=== PATIENT | male | born 1990 | race Caucasian/White ===

== ENCOUNTER 2021-12-26 22:39 | Emergency (ER) | payer BC, SELFPAY ==
[2021-12-26 22:55] VITALS: BP 136/91; PULSE 92; RESP 18; TEMP 36.6; O2SAT 98; BMI 25.8
[2021-12-27] MEDS: LIDOCAINE 1% 20 ML VIAL INJECTION (00:28)
[2021-12-27] MEDS: AZITHROMYCIN 250 MG TABLET 1000 MG PO (00:29)
[2021-12-27] MEDS: cefTRIAXone 500 MG VIAL IM (00:29)
[2021-12-27 01:39] LABS: Chlamydia DNA Amplified* Not Detected (No Detected); GC DNA Amplified* Not Detected (No Detected)
--- NOTE | 2022-01-01 05:40 | ED.GENADULT ---
HPI - General Adult General Chief complaint: Unspecified Complaint, Adult Stated complaint: STD check and medication error Time Seen by Provider: 12/26/21 22:51 History of Present Illness HPI narrative: Patient is a 31-year-old male with long history of benzodiazepine abuse who comes in requesting a rapid taper of lorazepam. He apparently finished a course of treatment at [facility] recently but rapidly relapsed when his mother and he found some lorazepam that had been prescribed to her. He has been abusing that for the past several weeks. He lied to his PCP in the clinic two weeks ago and told him that he had remained clean and sober. Tonight he tells me that he has been using 1.5 mg daily and is worried about withdrawal. He would also like to be screened for gonorrhea and chlamydia is he had unprotected intercourse couple of weeks ago. He has no dysuria, urgency, frequency, fever, penile discharge. He has a history of gonorrhea. In the course of my interview did ask him if he has had any prescriptions written for lorazepam since he got out of treatment any told me know. 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 I then very clearly told him that I would not be providing him with any benzodiazepines tonight and he did not put up much of a fight. Related Data Previous Rx's Medication Instructions Recorded diltiazem HCl 120 mg 120 mg PO BID #180 cap 12/07/21 capsule,extended release 12 hr gabapentin 300 mg capsule 300 - 900 mg PO BID #180 cap 12/07/21 sertraline 100 mg tablet 100 mg PO DAILY #90 tab 12/07/21 gabapentin 300 mg capsule 300 mg PO BID #60 cap 12/22/21 gabapentin 600 mg tablet 600 mg PO BID #60 tab 12/22/21 Allergies Allergy/AdvReac Type Severity Reaction Status Date / Time rosalva Allergy Severe Throat Verified 12/26/21 23:01 closes up pineapple Allergy Intermediate lips swell Verified 12/26/21 23:01 ascorbic acid Allergy Mild cold sores Verified 12/26/21 23:01 inositol Allergy Mild Cold sores Verified 12/26/21 23:01 lemon oil Allergy Mild Cold sores Verified 12/26/21 23:01 niacinamide Allergy Mild Cold sores Verified 12/26/21 23:01 pantothenic acid Allergy Mild Cold sores Verified 12/26/21 23:01 pyridoxine Allergy Mild Cold sores Verified 12/26/21 23:01 riboflavin (vitamin B2) Allergy Mild Cold sores Verified 12/26/21 23:01 thiamine (vitamin B1) Allergy Mild Cold sores Verified 12/26/21 23:01 cephalexin Allergy Unknown Nausea and Verified 12/26/21 23:01 vomiting Bioflavonoids / grape seed Allergy Mild Cold sores Uncoded 12/26/21 23:01 extract Choline Allergy Mild cold sores Uncoded 12/26/21 23:01 Lemon Flavor Allergy Mild Cold sores Uncoded 12/26/21 23:01 Vitamin B12 Allergy Mild Cold sores Uncoded 12/26/21 23:01 PFSH PFS Medical History Anxiety disorder (07/23/12) Attention deficit disorder (07/23/12) Benzodiazepine abuse Depression (07/23/12) Gastroesophageal reflux disease History of bipolar disorder (09/08/12) History of suicidal ideation (09/08/12) Insomnia Palpitations Supraventricular tachycardia Tobacco use (07/23/12) Surgical History (Updated 01/01/22 @ 05:41 by Armando Crisostomo MD) History of radiofrequency ablation (RFA) procedure for cardiac arrhythmia (05/26/19) Family History (Updated 12/04/21 @ 13:23 by Chandu Fallon) Mother Bqjlb-Ltacwcehb-Wfnto (WPW) syndrome Social History Smoking Status: Current every day smoker Exam Narrative: Exam Narrative: Vitals noted. HEENT: Conjunctiva clear. Tympanic membranes are pearly white bilaterally. Posterior pharynx is clear without erythema or exudate. Neck is supple without adenopathy, thyromegaly, carotid bruit. Lungs: Clear to auscultation in all painting. No wheezes, rales, rhonchi. Heart: Regular rate and rhythm without murmur. Abdomen: Soft and nontender. No guarding, rigidity, rebound. Bowel sounds are normal. No palpable masses. Extremities: No cyanosis or edema. Good distal pulses. Skin: No abnormalities noted of the exposed skin. Neurologic: Awake, alert, fully oriented. Neurologic exam is nonfocal. Course Course Hospital Course: Patient is seen and examined. The TEXT[employer] SALES REPRESENTATIVE system is reviewed. I confronted him regarding his drug-seeking behavior and his son steady. He did leave us a urine for gonorrhea and chlamydia testing both of which have returned negative. Vital Signs Vital signs: Initial Vital Signs Temperature 97.8 F 12/26/21 22:55 Temperature Source Temporal Artery Scan 12/26/21 22:55 Pulse Rate 92 12/26/21 22:55 Respiratory Rate 18 12/26/21 22:55 Blood Pressure 136/91 H 12/26/21 22:55 Blood Pressure Mean 106 12/26/21 22:55 Blood Pressure Position Sitting 12/26/21 22:55 Pulse Oximetry 98 12/26/21 22:55 Oxygen Delivery Method 12/26/21 22:55 Vital Signs Temperature 97.8 F 12/26/21 22:55 Pulse Rate 92 12/26/21 22:55 Respiratory Rate 18 12/26/21 22:55 Blood Pressure 136/91 H 12/26/21 22:55 Pulse Oximetry 98 12/26/21 22:55 Temperature 97.8 F 12/26/21 22:55 Pulse Rate 92 12/26/21 22:55 Respiratory Rate 18 12/26/21 22:55 Blood Pressure 136/91 H 12/26/21 22:55 Pulse Oximetry 98 12/26/21 22:55 Medical Decision Making Lab Data Labs: Lab Results 12/27/21 Range/Units 00:00 C.trachomatis Ampl DNA Not Detected (No Detected) N.gonorrhoeae Ampl DNA Not Detected (No Detected) Discharge Plan Discharge Clinical Impression: Benzodiazepine abuse, STD exposure Patient Disposition: Home, Self-Care Condition: Improved Additional Instructions: Continue gabapentin to help with addiction. Follow-up with your PCP within the next 3-5 days to discuss a plan. You have been treated for both gonorrhea and chlamydia in those test results will be available couple of days. Be honest with your doctor. He will be better able to help you if you are. Prescriptions: No Action diltiazem HCl 120 mg capsule,extended release 12 hr 120 mg PO BID Qty: 180 1RF gabapentin 300 mg capsule 300 - 900 mg PO BID Qty: 180 1RF sertraline 100 mg tablet 100 mg PO DAILY Qty: 90 1RF gabapentin 300 mg capsule 300 mg PO BID Qty: 60 0RF gabapentin 600 mg tablet 600 mg PO BID Qty: 60 0RF Follow Up/Referrals: Tomi Crystal MD [Primary Care Provider] - Stand Alone Forms: MyHealth Info Instructions
--- OUTSIDE RECORDS SUMMARY | 2022-01-16 18:19 | XMS_ITS | Encounter Summary ---
:1990 Author Organization [facility] Address [address] [place] [address]. [place] [address] Care Team Providers Name Role Phone Unavailable Primary Care Provider Unavailable Reason for Visit Reason Onset Date Comments Medication Question 12/18/2020 Encounter Details Date Type Department Care Team Description 12/18/2020 Telephone [facility] Nurse Gerry Winchester, cook chill technician [facility] [address] [place] [phone] Social History Tobacco Use Types Packs/Day Years Used Date Never Assessed Sex Assigned at Date Recorded Not on file COVID-19 Exposure Response Date Recorded In the last month, have you been in contact with No / Unsure 12/18/2020 7:49 PM CDT someone who was confirmed or suspected to have Coronavirus / COVID-19? documented as of this encounter Miscellaneous Notes Telephone Encounter - Gerry Winchester RN - 12/18/2020 7:49 PM CDT Data: Pt called to report they see a pelt grader at [facility] Dr. Palacio who put the pt on a new heart medication called Corlanor which can lower heart rate. Pt also takes propanolol and is planning to take their dose tonight but is not sure if they can take this together with the new medication. Pt's current heart rate is 117 BPM due pt being anxious. Action: Cad Developer unsure if pt is able to take these two medications together. Advised pt should reach out to their cardiologists to discuss this with them. Also advised pt could contact the pharmacy to see if these two medication could be taken together. Pt does not have a PCP within system so unable to abhishek [facility]. Response: Pt verbalizes understanding and agrees with plan of care. Gerry Winchester RN 12/18/2020 8:00 PM [facility] Nurse Advisor COVID 19 Nurse Triage Plan/Patient Instructions Please be aware that novel coronavirus (COVID-19) may be circulating in the community. If you develop symptoms such as fever, cough, or SOB or if you have concerns about the presence of another infection including coronavirus (COVID- 19), please contact your health care provider or visit [email or web address]. Disposition/Instructions Additional COVID19 information to add for patients. How can I protect others? If you have symptoms (fever, cough, body aches or trouble breathing): Stay home and away from others(self-isolate) until: ??? At least 10 days have passed since your symptoms started, And? You???ve had no fever--and no medicine that reduces fever--for 1 full day (24 hours), And? Your other symptoms have resolved (gotten better). If you don???t have symptoms, but a test showed that you have COVID-19 (you tested positive): ?? Stay home and away from others (self-isolate). Follow the tips under How do I self-isolate? below for 10 days (20 days if you have a weak immune system). ?? You don't need to be retested for COVID-19 before going back to school or work. As long as you'refever-free and feeling better, you can go back to school, work and other activities after waiting the 10 or 20 days. How do I self-isolate? Stay in your own room, even for meals. Use your own bathroom if you can. ??? Stay away from others in your home. No hugging, kissing or shaking hands. No visitors. ??? Don???t go to work, school or anywhere else. ??? Clean ???high touch?? surfaces often (doorknobs, counters, handles, etc.). Use a household cleaning spray or wipes. You???ll find a full list on the EPA website: www.epa.gov/pesticide-registration/ vhjn-x-vovtugpqkqpzw-zgt-expmzlc-zvar-cov-2. ??? Cover your mouth and nose with a mask, tissue or washcloth to avoid spreading germs. ??? Wash your hands and face often. Use soap and water. ??? Caregivers in these groups are at risk for severe illness due to COVID-19: o People 65 years and older o People who live in a skilled nursing or long-term care facility o People with chronic disease (lung, heart, cancer, diabetes, kidney, liver, immunologic) o People who have a weakened immune system, including those who: - Are in cancer treatment - Take medicine that weakens the immune system, such as corticosteroids - Had a bone marrow or organ transplant - Have an immune deficiency - Have poorly controlled HIV or AIDS - Are obese (body mass index of 40 or higher) - Smoke regularly ??? Caregivers should wear gloves while washing dishes, handling laundry and cleaning bedrooms and bathrooms. ??? Use caution when washing and drying laundry: Don???t shake dirty laundry, and use the warmest water setting that you can. ??? For more tips, go to www.cdc.gov/coronavirus/2019-ncov/downloads/10Things.pdf. How can I take care of myself? 1. Get lots of rest. Drink extra fluids (unless a doctor has told you not to). 2. Take Tylenol (acetaminophen) for fever or pain. If you have liver or kidney problems, ask your family doctor if it???s okay to take Tylenol. Adults can take either: ??? 650 mg (two 325 mg pills) every 4 to 6 hours, or? 1,000 mg (two 500 mg pills) every 8 hours as needed. ??? Note: Don???t take more than 3,000 mg in one day. Acetaminophen is found in many medicines (both prescribed and rmlh-raf-cgnkmgi medicines). Read all labels to be sure you don???t take too much. For children, check the Tylenol bottle for the right dose. The dose is based on the child???s age orweight. 3. If you have other health problems (like cancer, heart failure, an organ transplant or severe kidney disease): Call your specialty clinic if you don???t feel better in the next 2 days. 4. Know when to call 911: Emergency warning signs include: ??? Trouble breathing or shortness of breath ??? Pain or pressure in the chest that doesn???t go away ??? Feeling confused like you haven???t felt before, or not being able to wake up ??? Bluish-colored lips or face What are the symptoms of COVID-19? ?? The most common symptoms are cough, fever and trouble breathing. ?? Less common symptoms include body aches, chills, diarrhea (loose, watery poops), fatigue (feelingvery tired), headache, runny nose, sore throat and loss of smell. ?? COVID-19 can cause severe coughing (bronchitis) and lung infection (pneumonia). How does it spread? ?? The virus may spread when a person coughs or sneezes into the air. The virus can travel about [address], and it can live on surfaces. ?? Common certified orthotist practice manager (household disinfectants) will kill the virus. Who is at risk? Anyone can catch COVID-19 if they???re around someone who has the virus. How can others protect themselves? ?? Stay away from people who have COVID-19 (or symptoms of COVID-19). ?? Wash hands often with soap and water. Or, use hand grinding operator with at least 60% alcohol. ?? Avoid touching the eyes, nose or mouth. ?? Wear a face mask when you go out in public, when sick or when caring for a sick person. Where can I get more information? [facility]: About COVID-19: [email or web address] ??? CDC: What to Do If You???re Sick: www.cdc.gov/coronavirus/2019-ncov/about/ubojh-sfgc-sslp.html ??? CDC: Ending Home Isolation: www.cdc.gov/coronavirus/2019-ncov/hcp/rxqtecvsheu-yt-nvgu-patients.html ??? CDC: Caring for Someone: www.cdc.gov/coronavirus/2019-ncov/dn-obg-ekn-sick/nmxn-mgn-aygovsl.html ??? MD: Interim Guidance for Hospital Discharge to Home: www.health.[facility]/diseases/coronavirus/hcp/hospdischarge.pdf ??? [facility] clinical trials (COVID-19 research studies): clinicalaffairs.[facility]/ver-wnemoudb-cxozgg ??? Below are the COVID-19 hotlines at the [facility] ([facility]). Interpreters are available. o For health questions: Call [phone] or (7 a.m. to 7 p.m.) o For questions about schools and childcare: Call [phone] or (7 a.m. to 7 p.m.) Thank you for taking steps to prevent the spread of this virus. o Limit your contact with others. o Wear a simple mask to cover your cough. o Wash your hands well and often. Resources ??? [facility]: About COVID-19: [email or web address] ??? CDC: What to Do If You're Sick: www.cdc.gov/coronavirus/2019-ncov/about/kumvf-xhsj-pdcv.html ??? CDC: Ending Home Isolation: www.cdc.gov/coronavirus/2019-ncov/hcp/cedjvcttcux-yx-bftd-patients.html ??? CDC: Caring for Someone: www.cdc.gov/coronavirus/2019-ncov/sy-tcq-miy-sick/jeaz-qyu-tvuqztj.html ??? [facility]: Interim Guidance for Hospital Discharge to Home: www.[facility]./diseases/coronavirus/hcp/hospdischarge.pdf ??? [facility] clinical trials (COVID-19 research studies): clinicalaffairs.[facility]/bsd-tjnbdayp-dvqlyi ??? Below are the COVID-19 hotlines at the [facility] ([facility]). Interpreters are available. o For health questions: Call [phone] or (7 a.m. to 7 p.m.) o For questions about schools and childcare: Call [phone] or (7 a.m. to 7 p.m.) documented in this encounter Plan of Treatment Not on filedocumented as of this encounter Visit Diagnoses Not on filedocumented in this encounter
--- OUTSIDE RECORDS SUMMARY | 2022-01-16 18:19 | XMS_ITS | Encounter Summary ---
:1990 Author Organization [facility] Address [address] [place] [address] Care Team Providers Name Role Phone Elsewhere, Pcp Primary Care Provider Unavailable Encounter Details Date Type Department Care Team Description 09/22/2021 Clinical Communication Department of Lorin Rodriguez Cardiovascular Medicine Aidee, K[facility] in [facility] [address] [facility] [address] [place] [id number] [phone] Social History Tobacco Use Types Packs/Day Years Used Date Smoking Tobacco: Every Day Cigarettes 0.5 16 Smokeless Tobacco: Former Chew Alcohol Use Standard Drinks/Week Comments Not Currently 0 (1 standard drink = 0.6 oz pure alcoho l) No alcohol in over 2 years Alcohol Habits Answer Date Recorded How often do you have a drink containing Never 07/18/2021 alcohol? How many drinks containing alcohol do you Not asked have on a typical day when you are drinking? How often do you have six or more drinks on Not asked one occasion? Comment: No alcohol in over 2 years 07/06/2021 Social Isolation Answer Date Recorded In a typical week, how many times do you talk on the phone O nce a week 07/18/2021 with family, friends, or neighbors? How often do you get together with friends or relatives? Nev er 07/18/2021 How often do you attend religion or shinto services? Never 07/18/2021 Do you belong to any clubs or organizations such as religion N o 07/18/2021 groups, unions, fraternal or athletic groups, or school groups? How often do you attend meetings of the clubs or Never 07/18/2021 organizations you belong to? Are you now , , , , never Sep arated 07/18/2021 or living with a partner? Physical Activity Answer Date Recorded On average, how many days per week do you engage in moderate to 3 days 07/18/2021 strenuous exercise (like walking fast, running, jogging, dancing, swimming, biking, or other activities that cause a light or heavy sweat)? On average, how many minutes do you engage in exercise at th is 40 min 07/18/2021 level? Stress Answer Date Recorded Do you feel stress - tense, restless, nervous, or anxious, o r Very much 07/18/2021 unable to sleep at night because your mind is troubled all the time - these days? Financial Resource Strain Answer Date Recorded How hard is it for you to pay for the very basics like food, Hard 07/18/2021 housing, medical care, and heating? Intimate Partner Violence Answer Date Recorded Within the last year, have you been afraid of your partner o r No 07/18/2021 ex-partner? Within the last year, have you been humiliated or emotionall y No 07/18/2021 abused in other ways by your partner or ex-partner? Within the last year, have you been kicked, hit, slapped, or No 07/18/2021 otherwise physically hurt by your partner or ex-partner? Within the last year, have you been raped or forced to have any No 07/18/2021 kind of sexual activity by your partner or ex-partner? Food Insecurity Answer Date Recorded Within the past 12 months, you worried that your food Someti mes true 07/18/2021 would run out before you got money to buy more. Within the past 12 months, the food you bought just Never tr ue 07/18/2021 didn't last and you didn't have money to get more. Transportation Needs Answer Date Recorded In the past 12 months, has lack of transportation kept you f rom No 07/18/2021 medical appointments or from getting medications? In the past 12 months, has lack of transportation kept you f rom No 07/18/2021 meetings, work, or getting things needed for daily living? Housing Stability Answer Date Recorded In the last 12 months, was there a time when you were not ab le No 07/18/2021 to pay the mortgage or rent on time? In the last 12 months, how many places have you lived? 1 07/18/2021 In the last 12 months, was there a time when you did not hav e a No 07/18/[address] to sleep or slept in a [facility] (including now)? Education Answer Date Recorded What is the highest level of school you have GED or equivale nt 05/20/2021 completed or the highest degree you have received? 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 - 09/22/2021 1:23 PM CDT Other Goal or summary: Call returned to Mr. Rainey to give Dr. Gray's comments about his concerns about his one episode of SVT at 180 bom terminated with vagal maneuvers. Relayed to him that Dr. Grayis Still very reassuring nothing to worry about. The vagal manuevers could also help slow the sinus node as well . He will continue on his diltiazem for now. Additional comments: INFORMATION DISCUSSED PLAN Disposition/Recommendation: self-care as above appropriate at this time, patient encouraged to call back with questions Education: patient/caller able to teach back Caller agreeable to plan of care: yes ?? The following references were used: nursing clinical judgement Telephone Encounter - Lorin Rodriguez R.N. - 09/22/2021 10:50 AM CDT Other Goal or summary:Call placed to Mr. Rainey to relay the recommendations in previous message in regards to the recent monitor report. Mr. Rainey has concerns about the episode that occurred on 09/08/2021 at around 10 pm where his heart rates went up to 180 bpm and he did vagal manuevers to slow the heart r ates down. Advised that Dr. Gray reviewed the entire report and did not see anything concerning but will forward Mr. Rainey's concern about the episode on 09/08/2021 and await response.Additional comments: INFORMATION DISCUSSED PLAN Disposition/Recommendation: protocol orders Education: patient/caller able to teach back Caller agreeable to plan of care: yes ?? The following references were used: nursing clinical judgement and Dr. Gray response below Telephone Encounter - Lorin Rodriguez R.N. - 09/22/2021 10:49 AM CDT ----- Message from Rodrigo Gray M.D., Ph.D. sent at 09/21/2021 8:37 AM CDT ----- Can we let Mr. Rainey know that his ambulatory monitoring is VERY reassuring. His symptoms were all correllating with sinus rhythm at normal rates, and some with sinus tachycardia at higher rates, so there is nothing of concern from a rhythm perspective C ----- Message ----- From: Oz Menendez In [facility] Generic 1 [id number] Sent: 09/20/2021 8:26 AM CDT To: Rodrigo Gray M.D., Ph.D. documented in this encounter Plan of Treatment Not on filedocumented as of this encounter Visit Diagnoses Not on filedocumented in this encounter Additional Health Concerns Assessment Noted Time PHQ-9 Depression Total Score: 11 09/09/2015 4:10 PM CD T documented as of this encounter Care Teams Hoof Trimmer Relationship Specialty Start Date End Date Elsewhere, Pcp PCP - General Internal Medicine 07/04/21 documented as of this encounter
--- OUTSIDE RECORDS SUMMARY | 2022-01-16 18:19 | XMS_ITS | Encounter Summary ---
:1990 Author Organization [facility] Address [address] [place] [address] Care Team Providers Name Role Phone No Ref-Primary, Physician Primary Care Provider [phone] Encounter Details Date Type Department Care Team Description 03/19/2021 Travel Social History Tobacco Use Types Packs/Day Years Used Date Never Assessed Sex Assigned at Date Recorded Not on file COVID-19 Exposure Response Date Recorded In the last month, have you been in contact with No / Unsure 03/19/2021 3:28 PM CDT someone who was confirmed or suspected to have Coronavirus / COVID-19? documented as of this encounter Plan of Treatment Not on filedocumented as of this encounter Visit Diagnoses Not on filedocumented in this encounter Care Teams Reconciler Relationship Specialty Start Date End Date No Ref-Primary, Physician PCP - General 03/15/21 documented as of this encounter
--- OUTSIDE RECORDS SUMMARY | 2022-01-16 18:19 | XMS_ITS | Encounter Summary ---
:1990 Author Organization [place] Address [facility] [place] [address] Care Team Providers Name Role Phone Unavailable Primary Care Provider Unavailable Encounter Details Date Type Department Care Team Description 01/02/2016 Telephone [facility] Nurse Destiny Salas , RN [employer] [address] [place] [address] Social History Tobacco Use Types Packs/Day Years Used Date Never Assessed Sex Assigned at Date Recorded Not on file documented as of this encounter Miscellaneous Notes Telephone Encounter - Destiny Salas RN - 01/02/2016 5:33 PM CDT Call Type: Triage Call Presenting Problem: Patient called stating that he had been in the [place] [facility] room last evening for a panic attack. He is requesting two tablets of Ativan to get him through so he can go in for a clinic appointment tomorrow. Dr. Damon was national sales representative and okayed two tablets, and states that the patient needs to go to see him tomorrow at the [facility]. Patient was advised and he will call the clinic in the morning to get an appointment time. The Ativan was called to the [facility] in [place]. Triage Note: Guideline Title: Medication Questions - Adult Recommended Disposition: Call Provider Immediately Original Inclination: Did not know what to do Override Disposition: Intended Action: Call PCP/HCP Physician Contacted: No Prescription ordered today and not available at pharmacy putting patient at clinical risk ? YES Sign(s) or symptom(s) associated with a diagnosed condition or with a new illness ? NO Pharmacy calling to clarify prescription order. ? NO Physician Instructions: Care Advice: Have pharmacy phone number and prescription information available when you speak with provider. documented in this encounter Plan of Treatment Not on filedocumented as of this encounter Visit Diagnoses Not on filedocumented in this encounter
--- OUTSIDE RECORDS SUMMARY | 2022-01-16 18:19 | XMS_ITS | Encounter Summary ---
:1990 Author Organization [place] Address [address] [place] [address] Care Team Providers Name Role Phone Unavailable Primary Care Provider Unavailable Encounter Details Date Type Department Care Team Description 09/25/2015 Telephone [facility] rse Advisors Yessenia Potts, RN [address] [place] [address] Social History Tobacco Use Types Packs/Day Years Used Date Never Assessed Sex Assigned at Date Recorded Not on file documented as of this encounter Miscellaneous Notes Telephone Encounter - Yessenia Potts, RN - 09/25/2015 1:38 PM CDT Call Type: Triage Call Presenting Problem: I have been vomiting and have diarrhea. I know I am dehydrated becasue I can hardly stand. Caller state, I even feel too weak to put hand sanitzer on my hands. Caller wonders if he should go to ED. FNA advised he should have another adult drive him. Triage Note: Guideline Title: Dehydration Recommended Disposition: See Provider within 4 hours Original Inclination: Wanted to speak with a nurse Override Disposition: Intended Action: Go to Hospital / ED Physician Contacted: No New signs of dehydration and unable to replace fluid loss orally ? YES History of diabetes ? NO Unconscious now ? NO New or worsening signs and symptoms that may indicate shock ? NO Work/exercise in high heat and muscle cramps, fatigue AND symptoms have not resolved with 1 hour of home care ? NO Any temperature elevation in an immunocompromised individual OR frail elderly ? NO History of dementia AND deteriorating condition (very drowsy, difficult to awaken, has deteriorated or worsening confusion, inadequate fluid intake, very concentrated urine) ? NO No urination for 12 or more hours ? NO Physician Instructions: Care Advice: Another adult should drive. documented in this encounter Plan of Treatment Not on filedocumented as of this encounter Visit Diagnoses Not on filedocumented in this encounter
--- OUTSIDE RECORDS SUMMARY | 2022-01-16 18:19 | XMS_ITS | Clinical Summary ---
:1990 Author Organization [facility] Address [address] [place] [address] Care Team Providers Name Role Phone Elsewhere, Pcp Primary Care Provider Unavailable Source Comments Patient records contain information from all sites at [facility]. For routine questions regarding patient records, call [phone] during business hours, M-F 8:00 AM - 5:00 PM Central Time. Record requests for emergency care only can be directed to [phone] at any time.[facility] Allergies Active Allergy Reactions Severity Noted Date Comments Ascorbate Other (see comments) Medium 01/21/2019 Cold so res Calcium-Bioflavonoid Ascorbic Acid Other (see comments) Medium 01/21/2019 Cold s ores Bioflavonoids Other (see comments) Medium 01/21/2019 Cold s ores Cephalexin Nausea And Vomiting, 01/12/2021 Other (see comments) Choline Other (see comments) Low 05/25/2021 Choline Fenofibrate Other (see comments) Medium 01/21/2019 Cold sores Cyanocobalamin (Vitamin Other (see comments) Medium 9 Cold sores B12) Grape Seed Extract Other (see comments) Low 05/25/2021 Inositol Other (see comments) Medium 01/21/2019 Cold so res Kiwi Anaphylaxis High 06/01/2020 Lemon Other (see comments) 03/20/2003 Lemon Flavor Other (see comments) Low 01/12/2021 Lemon Oil Other (see comments) Medium 01/21/2019 Cold so res Inaja Other (see comments) 03/20/2003 Mifflin Anaphylaxis High 12/18/2013 Mifflin Flavor Other (see comments) High 01/12/2021 [place]ifflin Multivitamin With Other (see comments) 09/05/2012 CO LD SORE REACTION Iron,Other Minerals TO VARIOUS/NUMEROU S Niacinamide Other (see comments) Medium 01/21/2019 Cold so res [place] Other (see comments) 03/21/2003 Pantothenic Acid Other (see comments) Medium 01/21/2019 Col d sores Pineapple Anaphylaxis High 06/01/2020 Pyridoxine Other (see comments) Medium 01/21/2019 Cold so res Riboflavin (Vitamin B2) Other (see comments) Medium 9 Cold sores [place] Other (see comments) 03/20/2003 Thiamine (Vitamin B1) Other (see comments) Medium 01/21/2019 Cold sores Medications Medication Sig Dispensed Refills Start Date End Date Status pevoynvigexi-Im-e Take 1 tablet by 0 03/08/2021 Active florian-minerals mouth as needed. tablet EPINEPHrine 0.3 Inject 0 03/08/2021 Act day mg/0.3 mL intramuscularly as injection syringe needed. gabapentin Take 300 mg by mouth 0 06/05/2021 Active (NEURONTIN) 300 2 (two) times a day. mg capsule gabapentin Take 600 mg by mouth 0 06/05/2021 Active (NEURONTIN) 600 2 (two) times a day. mg tablet hydrOXYzine Take 100 mg by mouth 0 Active (VISTARIL) 100 mg as needed. capsule LORazepam Take 1 tablet by 0 09/08/2015 Ac tive (ATIVAN) 1 mg mouth as needed. tablet melatonin 10 mg Take 10 mg by mouth 0 03/01/2021 Active tablet at bedtime. ondansetron Take 4 mg by mouth as 0 03/03/2021 Active (ZOFRAN) 4 mg needed. tablet sertraline Take 100 mg by mouth 0 06/26/2021 Active (ZOLOFT) 100 mg daily. tablet dilTIAZem CD Take 1 capsule (120 180 capsule 3 09/29/2021 Active (CARDIZEM mg total) by mouth 2 CD/CARTIA XT) 120 (two) times a day. mg 24 hr capsule metoprolol Take 1 tablet (25 mg 180 tablet 3 09/29/2021 Active tartrate total) by mouth 2 (LOPRESSOR) 25 mg (two) times a day. tablet Active Problems Problem Noted Date Tachycardia Supraventricular 05/26/2021 Overview: Status post previous AVNRT ablation Depression Major 09/08/2012 Family History Medical History Relation Name Comments Alcohol abuse Mother Renee Anxiety disorder Mother Renee Depression Mother Renee Thyroid disease Mother Renee Izzy Relation Name Status Comments Father Mother Renee Alive Social History Tobacco Use Types Packs/Day Years [...] er 07/18/2021 How often do you attend sikh or church services? Never 07/18/2021 Do you belong to any clubs or organizations such as sikh N o 07/18/2021 groups, unions, fraternal or [...] place to sleep or slept in a prison (including now)? Education Answer Date Recorded What is the highest level of school you have GED or equivale nt 05/20/2021 completed or the highest degree you have received? 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 Filed Vital Signs Vital Sign Reading Time Taken Comments Blood Pressure 98/43 07/07/2021 12:45 PM [employer] DESIGN [employer]INEER Pulse 101 07/07/2021 12:45 PM TIRE DESIGN ENGINEER Temperature 36.9 ??C (98.5 ??F) 07/07/2021 7:18 AM TIRE DESIGN ENGINEER Respiratory Rate 14 02/07/2021 4:14 AM CDT Oxygen Saturation 100% 07/07/2021 12:45 PM TI[employer] DESIGN ENGINEER Inhaled Oxygen Concentration - - Weight 83 kg (182 lb 15.7 oz) 07/06/2021 1:55 PM [employer] DESIGN [employer]INEER Height 172 cm (5' 7.72) 07/06/2021 1:55 PM TI[employer] DESIGN ENGINEER Body Mass Index 28.06 07/06/2021 1:55 PM TIRE DESIGN ENGINEER Plan of Treatment Health Maintenance Due Date Last Done Comments Depression Monitoring (PHQ-9) 1990 Hepatitis C Screening 1990 Tobacco Cessation counseling 1990 Pneumococcal vaccine (0-64 years) 09/11/1997 (1 - PCV) Influenza Vaccine (#1) 2022 05/10/2021, 02/13/2017, 06/11/2013, Additional history exists DTaP,Tdap,and Td Vaccines (8 - Td 07/18/2028 07/18/2018, , or Tdap) 02/13/2005, Additional history exists Hepatitis B Vaccines Completed 01/27/1997, 08/02/1994, 06/01/1994 COVID-19 Vaccine Completed 05/23/2021, 11/15/2020, 10/25/2020 Insurance Payer Benefit Plan / Subscriber ID Effective Dates Phone Addre ss Type Group [employer] [place] [id number] 2019-Presen [phone] [address] [id number] PPO [facility] [address] [place] [address] Care Teams Carpet Tile Layer Relationship Specialty Start Date End Date Elsewhere, Pcp PCP - General Internal Medicine 07/04/21
--- OUTSIDE RECORDS SUMMARY | 2022-01-16 18:19 | XMS_ITS | Encounter Summary ---
:1990 Author Organization [facility] Address [address] [place] [id number] Care Team Providers Name Role Phone No Ref-Primary, Physician Primary Care Provider [phone] Reason for Visit Reason Comments Chest Pain Encounter Details Date Type Department Care Team Description 03/15/2021 Emergency [facility] Arnaldo Gutierrez MD Chest pain, non-cardiac; [place] [facility] [address] [facility] Tach yarrhythmia Dept ER [address] [place] [address] [place], [place] [phone] (Work) [phone] Social History Tobacco Use Types Packs/Day Years Used Date Never Assessed Sex Assigned at Date Recorded Not on file COVID-19 Exposure Response Date Recorded In the last month, have you been in contact with No / Unsure 03/15/2021 1:31 PM CDT someone who was confirmed or suspected to have Coronavirus / COVID-19? documented as of this encounter Last Filed Vital Signs Vital Sign Reading Time Taken Comments Blood Pressure 117/73 03/15/2021 3:00 PM CDT Pulse 67 03/15/2021 3:00 PM CDT Temperature 37 ??C (98.6 ??F) 03/15/2021 1:30 PM CDT Respiratory Rate 17 03/15/2021 3:00 PM CDT Oxygen Saturation 100% 03/15/2021 3:00 PM CDT Inhaled Oxygen Concentration - - Weight 77.6 kg (171 lb) 03/15/2021 1:34 PM CDT Height 170.2 cm (5' 7) 03/15/2021 1:34 PM CDT Body Mass Index 26.78 03/15/2021 1:34 PM CDT documented in this encounter Discharge Instructions Discharge InstructionsArnaldo Gutierrez MD - 03/15/2021 4:01 PM CDT Your evaluation today is completely reassuring. There is no evidence your symptoms are coming from heart disease. Regarding your heart arrhythmia, you should schedule follow-up with an senior scientist. documented in this encounter Medications at Time of Discharge Medication Sig Dispensed Refills Start Date End Date CORLANOR 5 MG tablet Take 5 mg by mouth 2 0 03/11 times daily (with meals) EPINEPHrine (ANY BX GENERIC Inject into the 0 EQUIV) 0.3 MG/0.3ML muscle once as injection 2-pack needed gabapentin (NEURONTIN) 600 Take 1 tablet by 0 10/2020 MG tablet mouth 3 times daily metoprolol tartrate Take 25 mg by mouth 0 021 (LOPRESSOR) 25 MG tablet 2 times daily Multiple Vitamins-Minerals Take 1 tablet by 0 (HALINA MULTIVITAMIN FOR MEN) mouth daily TABS sertraline (ZOLOFT) 100 MG Take 100 mg by mouth 0 03/01/2021 tablet daily documented as of this encounter ED Notes Gayle Ivan RN - 03/15/2021 3:56 PM CDT Report to Nellie Gaxiola RN to call for transport. Gayle Ivan RN - 03/15/2021 1:32 PM CDT Pt presents to ED via EMS from [facility]. Pt reports CP that started today at 1100. Pt states pain midsternal and was not brought on by any precipitating factors. Pt reports pain has been intermittent stabbing pain. Pt c/o palpitations and fluttering in chest. Nelly Blank RN - 03/15/2021 1:20 PM CDT Bed: ED04 Expected date: Expected time: Means of arrival: Comments: [facility] Arnaldo Gutierrez MD - 03/15/2021 1:20 PM CDT History Chief Complaint Patient presents with ??? Chest Pain HPI Luisito Rainey is a 30 year old male who comes in from [facility] because of chest pain. He describes today that he has had sharp sudden severe stabbing pain over the left parasternal region that started about 11 AM while he was having lunch. He describes it as like dunking my heart in ice water and having it quiver. He has a past history of SVT and has had a single ablation that failed. This was in May 26, 2019. 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 He has a history of ADHD and anxiety. He is Covid vaccinated. He has not had Covid infection. He has been at [facility] for 9 days for benzodiazepine abuse but does not use alcohol, methamphetamine, cocaine, or other intoxicants. He is currently on a phenobarbital taper. Denies symptoms of recent illness. He has not had any fever, cough, sore throat or other symptoms of acute illness. He has not had anycalf pain or leg swelling. He does not have any bowel or bladder symptoms or abdominal pain. He has frequent episodes of racing heart and shows me his apple watch ECG readout showing heart rates of 162 bpm. There appear to be P waves with this but the rate is quite high for sinus tachycardia. Allergies: No Known Allergies Problem List: There are no problems to display for this patient. Past Medical History: No past medical history on file. Past Surgical History: No past surgical history on file. Family History: No family history on file. Social History: Marital Status: Social History Tobacco Use ??? Smoking status: Not on file Substance Use Topics ??? Alcohol use: Not on file ??? Drug use: Not on file Medications: No current outpatient medications on file. Review of Systems All other systems are reviewed and are negative Physical Exam BP: (!) 144/95 Pulse: 76 Temp: 98.6 ??F (37 ??C) Resp: 17 Height: 170.2 cm (5' 7) Weight: 77.6 kg (171 lb) SpO2: 99 % Physical Exam Nursing note and vitals were reviewed. Constitutional: Awake and alert, adequately nourished and developed appearing 30-year-old in no apparent discomfort, who does not appear acutely ill, and who answers questions appropriately and cooperates with examination. HEENT: EOMI. Neck: Freely mobile. Cardiovascular: Cardiac examination reveals normal heart rate and regular rhythm without murmur. Pulmonary/Chest: Breathing is unlabored. Breath sounds are clear and equal bilaterally. There no retractions, tachypnea, rales, wheezes, or rhonchi. No chest wall tenderness to palpation. Abdomen: Soft, nontender, no HSM or masses rebound or guarding. Musculoskeletal: Extremities are warm and well-perfused and without edema Neurological: Alert, oriented, thought content logical, coherent Skin: Warm, dry, no rashes. Psychiatric: Affect anxious but not agitated. No confusion. Not attending to internal stimuli. No flight of ideas. Mildly pressured speech.. ED Course Procedures EKG Interpretation: Interpreted by Arnaldo Gutierrez MD Time reviewed: 13:54 Symptoms at time of EKG: none Rhythm: normal sinus Rate: normal [place]: normal Ectopy: none Conduction: normal ST Segments/ T Waves: No ST-T wave changes Q Waves: none Comparison to prior: No old EKG available Clinical Impression: normal EKG Critical Care time: none Results for orders placed or performed during the hospital encounter of 03/15/21 (from the past 24 hour(s)) [facility] Narrative The following orders were created for panel order [facility]. Procedure Abnormality Status --------- ------ Extra Blue Top Tube[[id number]] Final result Extra Red Top Tube[[id number]] Final result Extra Green Top ([place]...[[id number]] Final result Extra Green Top ([place]...[[id number]] Final result Extra Purple Top Tube[[id number]] Final result Please view results for these tests on the individual orders. CBC with platelets differential Narrative The following orders were created for panel order CBC with platelets differential. Procedure Abnormality Status --------- ------ CBC with platelets and d...[[id number]] Abnormal Final result Please view results for these tests on the individual orders. D dimer quantitative Result Value Ref Range D-Dimer Quantitative 0.27 0.00 - 0.50 ug/mL FEU Narrative This D-dimer assay is intended for use in conjunction with a clinical pretest probability assessment model to exclude pulmonary embolism (PE) and deep venous thrombosis (DVT) in outpatients suspected of PE or DVT. The cut-off value is 0.50 ug/mL FEU. Comprehensive metabolic panel Result Value Ref Range Sodium 137 133 - 144 mmol/L Potassium 3.8 3.4 - 5.3 mmol/L Chloride 107 94 - 109 mmol/L Carbon Dioxide (CO2) 25 20 - 32 mmol/L Anion Gap 5 3 - 14 mmol/L Urea Nitrogen 9 7 - 30 mg/dL Creatinine 0.79 0.66 - 1.25 mg/dL Calcium 9.1 8.5 - 10.1 mg/dL Glucose 90 70 - 99 mg/dL Alkaline Phosphatase 103 40 - 150 U/L AST 19 0 - 45 U/L ALT 34 0 - 70 U/L Protein Total 7.6 6.8 - 8.8 g/dL Albumin 3.9 3.4 - 5.0 g/dL Bilirubin Total 0.2 0.2 - 1.3 mg/dL GFR Estimate >90 >60 mL/min/1.73m2 Lipase Result Value Ref Range Lipase 132 73 - 393 U/L Troponin I Result Value Ref Range Troponin I <0.015 0.000 - 0.045 ug/L Nt probnp inpatient (BNP) Result Value Ref Range N terminal Pro BNP Inpatient 19 0 - 450 pg/mL Extra Blue Top Tube Result Value Ref Range Hold Specimen JIC Extra Red Top Tube Result Value Ref Range Hold Specimen JIC Extra Green Top ([place] Heparin) Tube Result Value Ref Range Hold Specimen JIC Extra Green Top ([place] Heparin) Tube Result Value Ref Range Hold Specimen JIC Extra Purple Top Tube Result Value Ref Range Hold Specimen JIC CBC with platelets and differential Result Value Ref Range WBC Count 11.1 (H) 4.0 - 11.0 10e3/uL RBC Count 5.15 4.40 - 5.90 10e6/uL Hemoglobin 16.1 13.3 - 17.7 g/dL Hematocrit 45.9 40.0 - 53.0 % MCV 89 78 - 100 fL MCH 31.3 26.5 - 33.0 pg MCHC 35.1 31.5 - 36.5 g/dL RDW 12.2 10.0 - 15.0 % Platelet Count 226 150 - 450 10e3/uL % Neutrophils 77 % % Lymphocytes 14 % % Monocytes 7 % % Eosinophils 1 % % Basophils 1 % % Immature Granulocytes 0 % NRBCs per 100 WBC 0 <1 /100 Absolute Neutrophils 8.6 (H) 1.6 - 8.3 10e3/uL Absolute Lymphocytes 1.5 0.8 - 5.3 10e3/uL Absolute Monocytes 0.8 0.0 - 1.3 10e3/uL Absolute Eosinophils 0.2 0.0 - 0.7 10e3/uL Absolute Basophils 0.1 0.0 - 0.2 10e3/uL Absolute Immature Granulocytes 0.1 (H) <=0.0 10e3/uL Absolute NRBCs 0.0 10e3/uL XR Chest 2 Views Narrative CHEST TWO VIEWS 03/15/2021 3:31 PM HISTORY: Chest pain. COMPARISON: None. Impression IMPRESSION: No pneumothorax. There are no acute infiltrates. The cardiac silhouette is not enlarged. Pulmonary vasculature is unremarkable. Medications gabapentin (NEURONTIN) capsule 600 mg (600 mg Oral Given 03/15/21 140) PHENobarbital (LUMINAL) tablet 64.8 mg (64.8 mg Oral Given 03/15/211405) Assessments & Plan (with Medical Decision Making) 30-year-old male at [facility] for benzodiazepine dependence presented with chest pains as described above. In addition he has had long history of some type of tacky arrhythmia, possiblySVT, previously ablated but with recurrent episodes. The issue today regarding the pain would be atypical for ACS. He presented in a normal sinus rhythm at a normal rate and his EKG was normal. His laboratory evaluation was entirely reassuring including CBC, blood chemistries, troponin, BNP, D-dimer. His chest x-ray was also normal. At this time I recommend no further work-up. I suspect that this could be chest wall pain or chest wall muscle spasm. GI sources are possible but less likely. No seriouscause is suspected at this time. He can safely return to treatment at [facility]. He should schedule follow-up with electrophysiology regarding the tachyarrhythmia. I have reviewed the nursing notes. I have reviewed the findings, diagnosis, plan and need for follow up with the patient. New Prescriptions No medications on file Final diagnoses: Chest pain, non-cardiac Tachyarrhythmia 03/15/2021 [facility] EMERGENCY DEPT Arnaldo Gutierrez MD 03/15/21 1605 documented in this encounter Plan of Treatment Not on filedocumented as of this encounter Procedures Procedure Name Priority Date/Time Associated Comments Diagnosis XR CHEST 2 VIEWS STAT 03/15/2021 3:31 PM Resul ts for this CDT procedure are i n the results section. EXTRA TUBE STAT 03/15/2021 2:05 PM Results f or this CDT procedure are i n the results section. EXTRA PURPLE TOP TUBE STAT 03/15/2021 2:05 PM Results for this CDT procedure are i n the results section. EXTRA GREEN TOP STAT 03/15/2021 2:05 PM Result s for this (LITHIUM HEPARIN) TUBE CDT proce dure are in the results section. EXTRA GREEN TOP STAT 03/15/2021 2:05 PM Result s for this (LITHIUM HEPARIN) TUBE CDT proce dure are in the results section. EXTRA RED TOP TUBE STAT 03/15/2021 2:05 PM Res ults for this CDT procedure are i n the results section. EXTRA BLUE TOP TUBE STAT 03/15/2021 2:05 PM Re sults for this CDT procedure are i n the results section. CBC WITH PLATELETS AND STAT 03/15/2021 2:05 PM Results for this DIFFERENTIAL CDT procedure are i n the results section. CBC WITH PLATELETS & STAT 03/15/2021 2:05 PM R esults for this DIFFERENTIAL CDT procedure are i n the results section. TROPONIN I STAT 03/15/2021 2:05 PM Results f or this CDT procedure are i n the results section. NT PROBNP INPATIENT STAT 03/15/2021 2:05 PM Re sults for this CDT procedure are i n the results section. LIPASE STAT 03/15/2021 2:05 PM Results f or this CDT procedure are i n the results section. D DIMER QUANTITATIVE STAT 03/15/2021 2:05 PM R esults for this CDT procedure are i n the results section. COMPREHENSIVE STAT 03/15/2021 2:05 PM Results for this METABOLIC PANEL CDT procedure ar e in the results section. EKG 12-LEAD, TRACING STAT 03/15/2021 1:56 PM R esults for this ONLY CDT procedure are i n the results section. documented in this encounter Results XR Chest 2 Views (03/15/2021 3:31 PM CDT) Anatomical Region Laterality Modality Chest Digital Radiography Specimen (Source) Anatomical Location Collection Method / Collectio n Time Received Time / Laterality Volume Impressions 03/15/2021 4:26 PM CDT IMPRESSION: No pneumothorax. There are no acute infiltrates. The cardiac silhouette is not enlarged. Pulm onary vasculature is unremarkable. BRENDA FELTON MD SYSTEM ID: ??[id number] Narrative 03/15/2021 4:26 PM CDT CHEST TWO VIEWS 03/15/2021 3:31 PM HISTORY: Chest pain. COMPARISON: None. Procedure Note Brenda Felton MD - 03/15/2021Fo rmatting of this note might be different from the original. CHEST TWO VIEWS 03/15/2021 3:31 PM HISTORY: Chest pain. COMPARISON: None. IMPRESSION: No pneumothorax. There are n o acute infiltrates. The cardiac silhouette is not enlarged. Pulm onary vasculature is unremarkable. BRENDA FELTON MD SYSTEM ID: [id number] Arnaldo Gutierrez MD IMG DIAGNOSTIC IMAGING ORDER ELIZA (ABNORMAL) CBC with platelets and differential (03/15/2021 2:05 PM CDT) [facility] Method Time Signature WBC Count 11.1 (H) 4.0 - 03/15/2021 [facility] 11.0 2:20 PM CDT 10e3/uL RBC Count 5.15 4.40 - 03/15/2021 [facility] 5.90 2:20 PM CDT 10e6/uL Hemoglobin 16.1 13.3 - 03/15/2021 [facility] 17.7 g/dL 2:20 PM CDT Hematocrit 45.9 40.0 - 03/15/2021 [facility] 53.0 % 2:20 PM CDT MCV 89 78 - 100 03/15/2021 [facility] fL 2:20 PM CDT MCH 31.3 26.5 - 03/15/2021 [facility] 33.0 pg 2:20 PM CDT MCHC 35.1 31.5 - 03/15/2021 [facility] 36.5 g/dL 2:20 PM CDT RDW 12.2 10.0 - 03/15/2021 [facility] 15.0 % 2:20 PM CDT Platelet Count 226 150 - 450 03/15/2021 [facility] 10e3/uL 2:20 PM CDT % Neutrophils 77 % 03/15/2021 [facility] 2:20 PM CDT % Lymphocytes 14 % 03/15/2021 [facility] 2:20 PM CDT % Monocytes 7 % 03/15/2021 [facility] 2:20 PM CDT % Eosinophils 1 % 03/15/2021 [facility] 2:20 PM CDT % Basophils 1 % 03/15/2021 [facility] 2:20 PM CDT % Immature 0 % 03/15/2021 [facility] Granulocytes 2:20 PM CDT NRBCs per 100 0 <1 /100 03/15/2021 [facility] WBC 2:20 PM CDT Absolute 8.6 (H) 1.6 - 8.3 03/15/2021 [facility] Neutrophils 10e3/uL 2:20 PM CDT Absolute 1.5 0.8 - 5.3 03/15/2021 [facility] Lymphocytes 10e3/uL 2:20 PM CDT Absolute 0.8 0.0 - 1.3 03/15/2021 [facility] Monocytes 10e3/uL 2:20 PM CDT Absolute 0.2 0.0 - 0.7 03/15/2021 [facility] Eosinophils 10e3/uL 2:20 PM CDT Absolute 0.1 0.0 - 0.2 03/15/2021 [facility] Basophils 10e3/uL 2:20 PM CDT Absolute 0.1 (H) <=0.0 03/15/2021 [facility] Immature 10e3/uL 2:20 PM CDT Granulocytes Absolute NRBCs 0.0 10e3/uL 03/15/2021 [facility] 2:20 PM CDT Specimen Anatomical Collection Method / Collection Time Recei shakeel Time (Source) Location / Volume Laterality Blood VENOUS LINE / Venipuncture / 03/15/2021 2:05 2:10 Unknown Unknown PM CDT PM CDT Arnaldo Gutierrez MD LAB - BLOOD ORDERABLES Performing Organization Address City/[facility]/[place] [address] [phone] Acute Care Lab [address] [place] [address], [facility] [phone] Acute Care Lab [address] Room [address] Extra Purple Top Tube (03/15/2021 2:05 PM CDT) athologist Signature Hold Specimen [facility] 03/15/2021 [facility] 3:18 PM CDT Specimen Anatomical Collection Method / Collection Time Recei shakeel Time (Source) Location / Volume Laterality Blood VENOUS LINE / Venipuncture / 03/15/2021 2:05 1 2:10 Unknown Unknown PM CDT PM CDT Arnaldo Gutierrez MD LAB - BLOOD ORDERABLES Performing Organization Address City/[facility]/[place] [address] [phone] Acute Care Lab [address] [place] [address], [facility] [phone] Acute Care Lab [address] Extra Green Top ([place] Heparin) Tube (03/15/2021 2:05 PM CDT) athologist Signature Hold Specimen [facility] 03/15/2021 [facility] 3:18 PM CDT Specimen Anatomical Collection Method / Collection Time Recei shakeel Time (Source) Location / Volume Laterality Blood VENOUS LINE / Venipuncture / 03/15/2021 2:05 1 2:10 Unknown Unknown PM CDT PM CDT Arnaldo Gutierrez MD LAB - BLOOD ORDERABLES Performing Organization Address City/[facility]/[place] [address] Acute Care Lab [address] [place] [address], [facility] [phone] Acute Care Lab [address] Extra Green Top ([place] Heparin) Tube (03/15/2021 2:05 PM CDT) athologist Signature Hold Specimen [facility] 03/15/2021 [facility] 3:18 PM CDT Specimen Anatomical Collection Method / Collection Time Recei shakeel Time (Source) Location / Volume Laterality Blood VENOUS LINE / Venipuncture / 03/15/2021 2:05 1 2:10 Unknown Unknown PM CDT PM CDT Arnaldo Gutierrez MD LAB - BLOOD ORDERABLES Performing Organization Address City/[facility]/ZIP [facility] [place] [address] Acute Care Lab [address] [place] [address]. Room [address] [place] [address], [facility] [phone] Acute Care Lab [address] [place] [address]. Room # 2186 Extra Red Top Tube (03/15/2021 2:05 PM CDT) athologist Signature Hold Specimen [facility] 03/15/2021 [facility] 3:18 PM CDT Specimen Anatomical Collection Method / Collection Time Recei shakeel Time (Source) Location / Volume Laterality Blood VENOUS LINE / Venipuncture / 03/15/2021 2:05 1 2:10 Unknown Unknown PM CDT PM CDT Arnaldo Gutierrez MD LAB - BLOOD ORDERABLES Performing Organization Address City/[facility]/[place] [address] Acute Care Lab [address] [place] [address]. Room [address] [place] [address], [facility] [phone] Acute Care Lab [address] [place] [address]. Room # 2186 Extra Blue Top Tube (03/15/2021 2:05 PM CDT) athologist Signature Hold Specimen JI 03/15/2021 [facility] 3:18 PM CDT Specimen Anatomical Collection Method / Collection Time Recei shakeel Time (Source) Location / Volume Laterality Blood VENOUS LINE / Venipuncture / 03/15/2021 2:05 1 2:10 Unknown Unknown PM CDT PM CDT Arnaldo Gutierrez MD LAB - BLOOD ORDERABLES Performing Organization Address City/[facility] [place] [address] [phone] Acute Care Lab [address] [place] [address]. Room [address] [place] [address], [facility] [phone] Acute Care Lab [address] [place] [address]. Room # 2186 Nt probnp inpatient (BNP) (03/15/2021 2:05 PM CDT) athologist Signature N terminal Pro 19 0 - 450 03/15/2021 [facility] BNP Inpatient pg/mL 2:36 PM CDT Comment: Reference range shown and results flagge d as abnormal are suggested inpatient cut points for confirming diagnosis if CHF in an acute setting. Establishing a baseline value for each individual patient is useful for follow-up. An inpatient or e mergency department NT-proPBNP <300 pg/mL effectively rules out acute CHF, with 99% negative predictive value. The outpatient non-acute reference range for ruling out CHF is: 0-125 pg/mL (age 18 to less than 75) 0-450 pg/mL (age 75 yrs and older) Specimen Anatomical Collection Method / Collection Time Recei shakeel Time (Source) Location / Volume Laterality Blood VENOUS LINE / Venipuncture / 03/15/2021 2:05 1 2:10 Unknown Unknown PM CDT PM CDT Arnaldo Gutierrez MD LAB - BLOOD ORDERABLES Performing Organization Address City/[facility]/[place] [address] Acute Care Lab [address] [place] [address]. Room [address] [place] [address], [facility] [phone] Acute Care Lab [address] [place] [address]. Room # 2186 Troponin I (03/15/2021 2:05 PM CDT) athologist Signature Troponin I <0.015 0.000 - 03/15/2021 [facility] 0.045 ug/L 2:36 PM CDT Comment: The 99th percentile for upper r eference range is 0.045ug/L. Troponin values in the range of 0.045 - 0.120 ug/L may b e associated with risks of adverse clinical events. Specimen Anatomical Collection Method / Collection Time Recei shakeel Time (Source) Location / Volume Laterality Blood VENOUS LINE / Venipuncture / 03/15/2021 2:05 1 2:10 Unknown Unknown PM CDT PM CDT Arnaldo Gutierrez MD LAB - BLOOD ORDERABLES Performing Organization Address [facility]/ZIP [facility] [place] [address] Acute Care Lab [address] [place] [address]. Room [address] [place] [address], [facility] [phone] Acute Care Lab [address] [place] [address]. Room # 2186 Lipase (03/15/2021 2:05 PM CDT) athologist Signature Lipase 132 73 - 393 U/L 03/15/2021 [facility] 2:27 PM CDT Specimen Anatomical Collection Method / Collection Time Recei shakeel Time (Source) Location / Volume Laterality Blood VENOUS LINE / Venipuncture / 03/15/2021 2:05 1 2:10 Unknown Unknown PM CDT PM CDT Arnaldo Gutierrez MD LAB - BLOOD ORDERABLES Performing Organization Address [facility]/[place] [address] Acute Care Lab [address] [place] [address]. Room [address] [place] [address], [facility] [phone] Acute Care Lab [address] [place] [address]. Room # 2186 Comprehensive metabolic panel (03/15/2021 2:05 PM CDT) P athologist Signature Sodium 137 133 - 144 03/15/2021 [facility] mmol/L 2:33 PM CDT Potassium 3.8 3.4 - 5.3 03/15/2021 [facility] mmol/L 2:33 PM CDT Chloride 107 94 - 109 03/15/2021 [facility] mmol/L 2:33 PM CDT Carbon Dioxide 25 20 - 32 03/15/2021 [facility] (CO2) mmol/L 2:33 PM CDT Anion Gap 5 3 - 14 03/15/2021 [facility] mmol/L 2:33 PM CDT Urea Nitrogen 9 7 - 30 03/15/2021 [facility] mg/dL 2:33 PM CDT Creatinine 0.79 0.66 - 03/15/2021 [facility] 1.25 mg/dL 2:33 PM CDT Calcium 9.1 8.5 - 10.1 03/15/2021 [facility] mg/dL 2:33 PM CDT Glucose 90 70 - 99 03/15/2021 [facility] mg/dL 2:33 PM CDT Alkaline 103 40 - 150 03/15/2021 [facility] Phosphatase U/L 2:33 PM CDT AST 19 0 - 45 U/L 03/15/2021 [facility] 2:33 PM CDT ALT 34 0 - 70 U/L 03/15/2021 [facility] 2:33 PM CDT Protein Total 7.6 6.8 - 8.8 03/15/2021 [facility] g/dL 2:33 PM CDT Albumin 3.9 3.4 - 5.0 03/15/2021 [facility] g/dL 2:33 PM CDT Bilirubin Total 0.2 0.2 - 1.3 03/15/2021 [facility] mg/dL 2:33 PM CDT GFR Estimate >90 >60 03/15/2021 [facility] mL/min/1.7 2:33 PM CDT 3m2 Comment: As of December 18, 2020, eGFR is ca lculated by the CKD-EPI creatinine equation, without race adjustment. eGFR can be inf luenced by muscle mass, exercise, and diet. The reported eGFR is an estimation only and is only applicable if the renal function is stable. Specimen Anatomical Collection Method / Collection Time Recei shakeel Time (Source) Location / Volume Laterality Blood VENOUS LINE / Venipuncture / 03/15/2021 2:05 2:10 Unknown Unknown PM CDT PM CDT Arnaldo Gutierrez MD LAB - BLOOD ORDERABLES Performing Organization Address City/State/[place] [address] Acute Care Lab [address] [place] [address]. Room # 2186 [place] [address], [facility] [phone] Acute Care Lab [address] [place] [address]. Room # 2186 D dimer quantitative (03/15/2021 2:05 PM CDT) Analysis Performed At Patho logist Time Signature D-Dimer 0.27 0.00 - 03/15/2021 [facility] Quantitative 0.50 ug/mL 2:23 PM CDT FEU Specimen Anatomical Collection Method / Collection Time Recei shakeel Time (Source) Location / Volume Laterality Blood VENOUS LINE / Venipuncture / 03/15/2021 2:05 2:10 Unknown Unknown PM CDT PM CDT Narrative [facility] - 03/15/2021 2:23 PM CDT This D-dimer assay is intended for use i n conjunction with a clinical pretest probability assessment model to exclude pulmonary embolism (PE) and deep venous thrombosis (DVT) in outpatients suspecte d of PE or DVT. The cut-off value is 0.50 ug/mL FEU. Arnaldo Gutierrez MD LAB - BLOOD ORDERABLES Performing Organization Address City/State/[place] [address] Acute Care Lab [address] [place] [address]. Room # 2186 [place] [address], [facility] [phone] Acute Care Lab [address] [place] [address]. Room # 2186 EKG 12-lead, tracing only (03/15/2021 1:56 PM CDT) Narrative This result has an attachment that is no t available. Arnaldo Gutierrez MD ECG ORDERABLES documented in this encounter Visit Diagnoses Diagnosis Chest pain, non-cardiac Other chest pain Tachyarrhythmia Tachycardia, unspecified documented in this encounter Administered Medications Inactive Administered Medications - up to 3 most recent administrations Medication Order MAR Action Action Date Dose Rate Site gabapentin (NEURONTIN) capsule 600 Given 03/15/2021 2:06 PM CDT 600 mg mg 600 mg, Oral, 3 TIMES DAILY, First dose on Sat03/15/21 at 1355 PHENobarbital (LUMINAL) tablet 64.8 mg Given 03/15/2021 2:06 PM CDT 64.8 mg 64.8 mg, Oral, ONCE, On Sat03/15/21 at 1350, For 1 dose documented in this encounter Active and Recently Administered Medications Times are shown in CDT. Scheduled Medication Order 03/13/2021 03/14/2021 03/15/2021 gabapentin (NEURONTIN) capsule 600 mg 1406 (Given - Provider: Gayle Ivan RN)1730 (Canceled Entry - Provider: Orders Generic Provider - Comment: Automatically canceled at discontinue of medication order) 600 mg, Oral, 3 TIMES DAILY, First dose on Sat03/15/21 at 1355 PHENobarbital (LUMINAL) tablet 64.8 mg (COMPLETED) 1406 (Given - Provider: Gayle Ivan, JUVENAL) 64.8 mg, Oral, ONCE, On Sat03/15/21 at 1350, For 1 dose documented in this encounter Care Teams Manager Adult Relationship Specialty Start Date End Date No Ref-Primary, Physician PCP - General 03/15/21 documented as of this encounter
--- OUTSIDE RECORDS SUMMARY | 2022-01-16 18:19 | XMS_ITS | Encounter Summary ---
:1990 Author Organization [facility] Address [address] [place] [address] Care Team Providers Name Role Phone Unavailable Primary Care Provider Unavailable Encounter Details Date Type Department Care Team Description 03/03/2021 Travel Social History Tobacco Use Types Packs/Day Years Used Date Never Assessed Sex Assigned at Date Recorded Not on file COVID-19 Exposure Response Date Recorded In the last month, have you been in contact with No / Unsure 03/03/2021 5:33 PM CDT someone who was confirmed or suspected to have Coronavirus / COVID-19? documented as of this encounter Plan of Treatment Not on filedocumented as of this encounter Visit Diagnoses Not on filedocumented in this encounter
--- OUTSIDE RECORDS SUMMARY | 2022-01-16 18:19 | XMS_ITS | Encounter Summary ---
:1990 Author Organization [facility] Address [facility] [place] [address] Care Team Providers Name Role Phone Unavailable Primary Care Provider Unavailable Encounter Details Date Type Department Care Team Description 08/20/[address] [facility] Gisele Agrawal, RN [address] [email or web address] [address] Social History Tobacco Use Types Packs/Day Years Used Date Never Assessed Sex Assigned at Date Recorded Not on file documented as of this encounter Miscellaneous Notes Telephone Encounter - Gisele Agrawal RN - 08/20/2015 12:47 AM CST Call Type: Triage Call Presenting Problem: I have extreme anxiety, and I have a head injury, In the last couple of hours I have noticed a sore area on my scalp, and I jinny reassurance that it is ok , and not a blood clot . Triage Note: Guideline Title: Post-Traumatic Stress Disorder, Diagnosed or Suspected Recommended Disposition: See Provider within 72 Hours Original Inclination: Did not know what to do Override Disposition: Intended Action: Follow advice given Physician Contacted: No Change in symptom pattern ? YES Recent acute loss (spouse, child, parent, home, job, friend) ? NO Increase in frequency of flashbacks ? NO Using alcohol or drugs to deal with symptoms ? NO Actively violent or threatening violence ? NO Currently using or under the influence of alcohol or illicit substances ? NO Any symptom of depression (hopeless, despondent, episodes of crying) ? NO Acute flashback of traumatic event AND hallucinations, delirium, delusions or paranoia ? NO Acute flashback of traumatic event AND reported intoxication, slow or slurred speech, or groggy ? NO Any suicidal or homicidal attempt(s) or gesture(s) in progress ? NO New or worsening symptoms AND history of violent behavior or psychiatric hospitalization ? NO Increasing or worsening episodes of hypervigilance AND paranoia ? NO Increasing or worsening nightmares or disturbing dreams ? NO New onset or worsening sleep disturbance ? NO New or worsening episode(s) of agitation or out of control behavior ? NO New or increasing symptoms AND not currently in treatment; not taking medications/therapy; or change in medication or therapy ? NO Loss of contact with reality, disturbed ability to think, perceive and planner chief clearly. ? NO Previously evaluated and worsening symptoms interfering with ability to carry out activities of daily living (ADLs) ? NO Change in ability to perform activities of daily living (ADLs) and not previously evaluated ? NO Any homicidal/destructive ideation, any suicidal ideation, any history of suicide attempts, and/or any history of self destructive behavior ? NO Increasing feelings of despondency and hopelessness without ideas or plans for self harm ? NO New or increasing symptoms AND taking medications/following therapy as prescribed ? NO Physician Instructions: Care Advice: Support from families and friends may help maintain a routine based on realistic expectations during stressful periods. Avoid the use of stimulants including caffeine (coffee, some soft drinks, some energy drinks, tea and chocolate), cocaine, and amphetamines. Also avoid drinking alcohol. After provider evaluation, get at least 30-60 minutes of moderate aerobic exercise, preferably each day exercise 3 to 4 hours before you want to sleep. Moderate aerobic exercise is generally defined as requiring about as much energy as walking 2 miles in 30 minutes. Eat a balanced diet and follow a regular sleep schedule with adequate sleep, about 7 to 8 hours a night. Call provider or mental healthcare provider if symptoms worsen or new symptoms develop. TROCHEMIST documented in this encounter Plan of Treatment Not on filedocumented as of this encounter Visit Diagnoses Not on filedocumented in this encounter
--- OUTSIDE RECORDS SUMMARY | 2022-01-16 18:19 | XMS_ITS | Encounter Summary ---
:1990 Author Organization [facility] Address [address] [facility] [place] [address] Care Team Providers Name Role Phone Unavailable Primary Care Provider Unavailable Encounter Details Date Type Department Care Team Description 10/03/2016 Telephone [facility] June Law, RN [address] [place] [address] Social History Tobacco Use Types Packs/Day Years Used Date Never Assessed Sex Assigned at Date Recorded Not on file documented as of this encounter Miscellaneous Notes Telephone Encounter - June Law, RN - 10/03/2016 10:02 PM CDT Call Type: Triage Call Presenting Problem: patient called in stating that he was put on BP med propranolol 6 mg QAM and QPM, has major anxiety and some panic attack symptoms and wondering if he could take his 1.0 mg lorazepam as pharamcist noted concerns, reviewed minor interactions, and noted nurse can not advise on this medication issue, stand by pharamcist and or prescribing MD. offered to page stonecutter apprentice hand MD and declined. He stated that he is going to take it against advice, educated on symptoms to call or go in to ER for. Triage Note: Guideline Title: Medication Questions - Adult Recommended Disposition: Provide Health Information Original Inclination: Wanted to speak with a nurse Override Disposition: Intended Action: Patient does not know Physician Contacted: No Caller has medication question(s) that was answered with available resources ? YES and has medication questions regarding prescribed and/or nonprescribed medication(s) not covered by available resources ? NO and has medication questions regarding prescribed and/or nonprescribed medication(s) not covered by available resources ? NO Requested information on how to safely dispose of or unused medications ? NO Sign(s) or symptom(s) associated with a diagnosed condition or with a new illness ? NO Prescription ordered today and not available at pharmacy putting patient at clinical risk ? NO Recurrence of a symptom(s) or illness post prescribed medication treatment AND provider instructed patient to call if symptom(s) returned. ? NO Unable to obtain prescribed medication related to available resources AND situation poses immediate clinical risk ? NO Pharmacy calling to clarify prescription order. ? NO Requests refill of prescribed medication that does NOT have a valid refill; lack of medication may cause clinical risk to patient if not available. ? NO Has questions about prescribed and/or nonprescribed medications not covered by available resources ? NO Pharmacy calling with prescription question; answered per department policy. ? NO Requests refill of prescribed medication without valid refills OR requests refill of prescribed medication with valid refills but does not have prescription number (no RX container); lack of medication does not put patient at clinical risk ? NO Physician Instructions: Care Advice: Medication Storage: - Store medication as directed, for example, refrigeration. - Don't store medications in the bathroom medicine cabinet or in direct sunlight. Humidity, heat and light can affect medications' potency and safety. - Store all medications out of the reach of children. Safe Use of Medications: - Keep a list of your medications, listing both brand and generic names, the prescribed dosage, common side effects, recommended action for side effects, when to call their provider, and any other specific instructions. This medication list should be updated if any prescriptions change or if new medications are added. Your list should include nonprescription medications, vitamins and supplements. An online resource for a medication list is: http://www.ahrq.gov/patients-consumers/diagnosis-treatment/treatments/safeme ds/walletform.html or http://www.ahrq.gov/patients-consumers/diagnosis-treatment/treatments/safeme ds/yourmeds.pdf Ask about your medications interaction with other medications, supplements or foods. - Take the medication list to each provider visit, especially if seeing more than one doctor. Make note of any known allergies on this list. - Use your medication exactly as directed. Any concerns about side effects should be discussed with your pharmacist or prescribing provider before changing doses or stopping the medication. - Don't chew or crush tablets or open capsules unless told to do so. Some long-acting medications can be absorbed too quickly when chewed or crushed. Other medications either won't be effective or could cause side effects. - If you have difficulty swallowing pills, ask your provider or the pharmacist if the medication is available in liquid form. - For liquid medications, only use measuring device that came with it or was provided by the pharmacy. Household teaspoons and tablespoons can be inaccurate. - Never take anyone else's medication. documented in this encounter Plan of Treatment Not on filedocumented as of this encounter Visit Diagnoses Not on filedocumented in this encounter
--- OUTSIDE RECORDS SUMMARY | 2022-01-16 18:19 | XMS_ITS | Encounter Summary ---
:1990 Author Organization [facility] Address [address] [place] [address] Care Team Providers Name Role Phone Unavailable Primary Care Provider Unavailable Encounter Details Date Type Department Care Team Description 12/18/2020 Travel Social History Tobacco Use Types Packs/Day [...]
--- OUTSIDE RECORDS SUMMARY | 2022-01-16 18:19 | XMS_ITS | Encounter Summary ---
:1990 Author Organization [facility] Address [address] [place] [address] Care Team Providers Name Role Phone Unavailable Primary Care Provider Unavailable Encounter Details Date Type Department Care Team Description 02/05/2021 Travel Social History Tobacco Use Types Packs/Day Years Used Date Never Assessed Sex Assigned at Date Recorded Not on file COVID-19 Exposure Response Date Recorded In the last month, have you been in contact with No / Unsure 02/05/2021 4:13 PM CDT someone who was confirmed or suspected to have Coronavirus / COVID-19? documented as of this encounter Plan of Treatment Not on filedocumented as of this encounter Visit Diagnoses Not on filedocumented in this encounter
--- OUTSIDE RECORDS SUMMARY | 2022-01-16 18:19 | XMS_ITS | Encounter Summary ---
:1990 Author Organization [facility] Address [address] [place] [address]. [place] [address] Care Team Providers Name Role Phone No Ref-Primary, Physician Primary Care Provider [phone] Reason for Visit Reason Onset Date Comments Pt. Information/instruction 11/30/2018 Encounter Details Date Type Department Care Team Description 11/30/2018 Telephone [facility] Nurse Lilian Barron , Pt. Advisors RN Information/instruction [address] [place] [address] Social History Tobacco Use Types Packs/Day Years Used Date Never Assessed Sex Assigned at Date Recorded Not on file documented as of this encounter Miscellaneous Notes Telephone Encounter - Lilian Barron RN - 11/30/2018 5:20 PM CDT Reason for Call: Luisito calls and says that he has extreme anxiety. Pt. Says that his heart has been fluttering today and that his right eye has been twitching. Pt. Says that he was recently started on Clonazepm. Pt. Says that he feels very scared and is sitting in an [facility] parking lot. Pt. Says that he is not alone.Denies any suicidal/homicidal thoughts. Pt. Will call 911 now. Luisito says that he wants this message left for Dr. Tomi Crystal. Pt. Says that he wants to be called on Saturday am, at: [phone]. RN then left this message in [facility], as requested. Lilian Barron RN [facility] [phone] documented in this encounter Plan of Treatment Not on filedocumented as of this encounter Visit Diagnoses Not on filedocumented in this encounter Care Teams Cloud Software Engineer Relationship Specialty Start Date End Date No Ref-Primary, Physician PCP - General 03/15/21 documented as of this encounter
--- OUTSIDE RECORDS SUMMARY | 2022-01-16 18:19 | XMS_ITS | Encounter Summary ---
:1990 Author Organization [facility] Address [address] [place] [address] Care Team Providers Name Role Phone No Ref-Primary, Physician Primary Care Provider [phone] Encounter Details Date Type Department Care Team Description 03/15/2021 Travel Social History Tobacco Use Types Packs/Day [...] on filedocumented in this encounter Care Teams Production Welder Relationship Specialty Start Date End Date No Ref-Primary, Physician PCP - General 03/15/21 documented as of this encounter
--- OUTSIDE RECORDS SUMMARY | 2022-01-16 18:19 | XMS_ITS | Encounter Summary ---
:1990 Author Organization [facility] Address [address] [place] [address] Care Team Providers Name Role Phone No Ref-Primary, Physician Primary Care Provider [phone] Encounter Details Date Type Department Care Team Description 03/19/2021 Documentation Only INTERFACED REPORT Unknown, Provider Social History Tobacco Use Types Packs/Day Years [...] on filedocumented in this encounter Care Teams Banana Loader Relationship Specialty Start Date End Date No Ref-Primary, Physician PCP - General 03/15/21 documented as of this encounter
--- OUTSIDE RECORDS SUMMARY | 2022-01-16 18:19 | XMS_ITS | Clinical Summary ---
:1990 Author Organization [facility] Address [address] [place] [address]. [place] [address] Care Team Providers Name Role Phone No Ref-Primary, Physician Primary Care Provider [phone] Allergies Active Allergy Reactions Severity Noted Date Comments Cephalexin Nausea and Vomiting 03/19/2021 Kiwi Anaphylaxis High 03/19/2021 Pineapple Anaphylaxis High 03/19/2021 Medications Medication Sig Dispensed Refills Start Date End Date Status CORLANOR 5 MG tablet Take 5 mg by 0 03/11/2021 Active mouth 2 times daily (with meals) EPINEPHrine (ANY BX Inject into the 0 03/08/2021 Active GENERIC EQUIV) 0.3 muscle once as MG/0.3ML injection needed 2-pack metoprolol tartrate Take 25 mg by 0 03/10/2021 Active (LOPRESSOR) 25 MG mouth 2 times tablet daily magnesium chloride 535 Take 535 mg by 0 Active (64 Mg) MG TBEC CR mouth daily tablet Multiple Take 1 tablet by 0 03/08/2021 Ac tive Vitamins-Minerals (HALINA mouth daily MULTIVITAMIN FOR MEN) TABS sertraline (ZOLOFT) 100 Take 100 mg by 0 03/01/2021 Active MG tablet mouth daily gabapentin (NEURONTIN) Take 1 tablet by 0 03/14/2021 Active 600 MG tablet mouth 3 times daily PHENobarbital (LUMINAL) Taper as directed 0 Active 32.4 MG tabletIndications: Alcohol Withdrawal Syndrome Social History Tobacco Use Types Packs/Day Years Used Date Never Assessed Sex Assigned at Date Recorded Not on file Last Filed Vital Signs Vital Sign Reading Time Taken Comments Blood Pressure 120/83 03/19/2021 5:15 PM CDT Pulse 79 03/19/2021 5:15 PM CDT Temperature 36.7 ??C (98 ??F) 03/19/2021 3:38 PM CDT Respiratory Rate 20 03/19/2021 5:15 PM CDT Oxygen Saturation 99% 03/19/2021 5:15 PM CDT Inhaled Oxygen Concentration - - Weight 77.1 kg (170 lb) 03/19/2021 3:38 PM CDT Height 170.2 cm (5' 7) 03/15/2021 1:34 PM CDT Body Mass Index 26.63 03/15/2021 1:34 PM CDT Plan of Treatment Health Maintenance Due Date Last Done Comments ADVANCE CARE PLANNING 1990 ANNUAL REVIEW OF HM ORDERS 1991 PREVENTIVE CARE VISIT 1990 Pneumococcal Vaccine: 09/11/1997 Pediatrics (0 to 5 Years) and At-Risk Patients (6 to 64 Years) (1 - PCV) HIV SCREENING 09/11/2006 HEPATITIS C SCREENING 09/11/2009 COVID-19 Vaccine (3 - 04/17/2021 11/15/2020, 10/25/2020 Booster for Pfizer series) PHQ-2 (once per calendar 06/10/2021 year) INFLUENZA VACCINE (Season 02/08/2022 02/13/2017, 06/11/2013 , Ended) 06/11/2013, Additional history exists DTAP/TDAP/TD IMMUNIZATION 07/18/2028 07/18/2018, 06/11/2013 , (8 - Td or Tdap) 02/13/2005, Additional history exists HEPATITIS B IMMUNIZATION Completed 01/27/1997, 08/02/1994, 06/01/1994 IPV IMMUNIZATION Completed 01/27/1997, 01/27/1997, 08/02/1994, Additional history exists MENINGITIS IMMUNIZATION Aged Out No longe r eligible based on patient 's age to complete this topic Insurance Payer Benefit Plan / Subscriber ID Effective Dates Phone Addre ss Type Group BCBS BCBS OUT OF [id number] 2020-Present [phone] [address] [address] [place] [address] Care Teams Tacker Elastic Band Relationship Specialty Start Date End Date No Ref-Primary, Physician PCP - General 03/15/21
--- OUTSIDE RECORDS SUMMARY | 2022-01-16 18:19 | XMS_ITS | Encounter Summary ---
:1990 Author Organization [facility] Address [address] [place] [id number] Care Team Providers Name Role Phone No Ref-Primary, Physician Primary Care Provider [phone] Reason for Referral CV Cardio consult (Routine) - Pending Review Specialty Diagnoses / Procedures Referred By Referred To Contact Contact Cardiovascular Disease Diagnoses Palpitations Sinus tachycardia Paroxysmal supraventricular tachycardia (H) Pedrito Noguera Wy malika meza MD [address] [place] [address] [place], [place] Phone: [phone] Phone: Fax: Referral ID Status Reason Start Date Expiration Date Visits V isits Requested Authorized [id number] Pending 03/19/2021 03/19/2022 1 1 Review V Testing (Routine) - Pending Review Specialty Diagnoses / Procedures Referred By Contact Refer red To Contact Diagnoses Palpitations Sinus tachycardia Paroxysmal supraventricular tachycardia (H) Pedrito Noguera MD Procedures 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 to 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 ZZHC EXT ECG > 48HR TO 21 DAY RCRD W/CONECT INTL RD ZZC EXT ECG > 48HR TO 21 DAY REVIEW AND INTERPRETATN UT EXT ECG > 48HR TO 21 DAY RCRD W/CONECT INTL [facility] [address] EXT ECG > 48HR TO 21 DAY REVIEW AND INTERPRETATN HC EXT ECG > 48HR TO 21 DAY RCRD [place] [address] Referral ID Status Reason Start Date Expiration Date Visits V isits Requested Authorized [id number] Pending 03/19/2021 03/19/2022 1 1 Review Reason for Visit Reason Comments Numbness lower left leg tingling onse t at 1900 lastnight pt ambulated into triage, pt from [facility] Palpitations hx of SVT feels palpitations , HR in triage 85 no chest pain Anxiety Encounter Details Date Type Department Care Team Description 03/19/2021 Emergency [facility] Pedrito Noguera, Palpi tations; [place] [facility] Sinus tachycardia; Dept [address] [facility] Paroxysmal supraventricular tachycardia (H); [address] [place] [address] Paresthesia of left leg; [place], [place] [phone] Anxiety [phone] (Work) [phone] Social History Tobacco Use Types Packs/Day Years [...] (170 lb) 03/19/2021 3:38 PM CDT Height - - Body Mass Index 26.63 03/15/2021 1:34 PM CDT documented in this encounter Discharge Instructions Discharge InstructionsPedrito Noguera MD - 03/19/2021 5:36 PM CDT Call Cardiac Services to schedule your ZIO Patch monitor and storage bin tender study as soon as possible: [phone]. An EP Cardiology clinic referral was made for you, they will contact you to establish follow-up. AttachmentsThe following attachments cannot be sent through Care Everywhere. Supraventricular Tachycardia (SVT), Understanding ([place])Paraesthesias ([place])Anxiety, Your Body's Response to ([place])documented in this encounter Medications at Time of Discharge Medication Sig Dispensed Refills Start Date End Date CORLANOR 5 MG tablet Take 5 mg by mouth 2 0 03/11 times daily (with meals) EPINEPHrine (ANY BX Inject into the 0 03/08/2021 GENERIC EQUIV) 0.3 muscle once as needed MG/0.3ML injection 2-pack gabapentin (NEURONTIN) 600 Take 1 tablet by 0 10/2020 MG tablet mouth 3 times daily magnesium chloride 535 (64 Take 535 mg by mouth 0 Mg) MG TBEC CR tablet daily metoprolol tartrate Take 25 mg by mouth 2 0 03/10 (LOPRESSOR) 25 MG tablet times daily Multiple Vitamins-Minerals Take 1 tablet by 0 (HALINA MULTIVITAMIN FOR mouth daily MEN) TABS PHENobarbital (LUMINAL) Taper as directed 0 32.4 MG tabletIndications: Alcohol Withdrawal Syndrome sertraline (ZOLOFT) 100 MG Take 100 mg by mouth 0 03/01/2021 tablet daily documented as of this encounter ED Notes Awilda Connolly RN - 03/19/2021 3:45 PM CDT Pt states that he was here on Saturday with SVT, has been feeling his rapid heart rate off and on since then. Around 7pm last night he started having some numbness in his left leg. No weakness, balance issues, no numbness anywhere else. Pt is very anxious that he's going to go into SVT again. Pedrito Noguera MD - 03/19/2021 3:28 PM CDT History Chief Complaint Patient presents with ??? Numbness lower left leg tingling onset at 1900 lastnight pt ambulated into triage[facility]?? Palpitations hx of SVT feels palpitations, HR in triage 85 no chest pain ??? Anxiety HPI Luisito Rainey is a 30 year old male from the [facility], with history of anxiety,depression, chemical dependency (alcohol and benzodiazepine) and PSVT with prior cardiac ablation procedure who presents for evaluation of palpitations and left leg tingling. Chronic daily rapid palpitations with chest pain, but without syncope and smart device recording of SVT and sinus tach with rate approximately 160 (reviewed by me on his cell phone). Last evening he developed left lower leg tingling sensation from just above the knee and extending distally in a stocking glove distribution throughout distal leg and foot. No leg weakness. No leg discoloration or swelling. Precordial chest pains with episodic palpitations are not pleuritic or exacerbated by deep inspiration and he has no shortness of breath, cough or hemoptysis. No other neurologic abnormality or deficit. No visual disturbance or abnormality. No back pain. He is very concerned that he needs to see an EP Lighting Fixtures Decorator for medication adjustment and another ablation procedure. This morning he called the [facility] answering service or nurse triage service with concern of elevated heart rate and asking if he can switch back from Metoprolol to Nadolol and questioned whether he was to have another EP study/Zio patch monitor study. He was previously on Nadolol and Corlanor/Ivabradine (5 mg twice daily), but since admission to [facility] recently the beta-terrence therapy will switched to Metoprolol tartrate 25 mg twice daily. He was seen in the emergency department 4 days ago for chest pain and had an unremarkable work-up including a normal EKG, unremarkable laboratory evaluation with a troponin and D-dimer, and unremarkable chest x-ray. Recent TSH was normal, 02/19/2021. No other pertinent history or acute complaints or concerns. Previous Records in Care Everywhere were Reviewed: Allergies Reconcile with Patient's Chart Active Allergy Reactions Severity Noted Date Comments Ascorbate Calcium-Bioflavonoid Other - Describe In Comment Field Medium 01/21/2019 Cold sores?? Bioflavonoids Other - Describe In Comment Field Medium 01/21/2019 Cold sores?? Choline Fenofibrate Other - Describe In Comment [facility] 01/21/2019 Cold sores ?? Inositol Other - Describe In Comment [facility] 01/21/2019 Cold sores ?? Ascorbic Acid Other - Describe In Comment [facility] 01/21/2019 Cold sores ?? Lemon Oil Other - Describe In Comment [facility] 01/21/2019 Cold sores ?? Niacinamide Other - Describe In Comment [facility] 01/21/2019 Cold sores ?? Pantothenic Acid Other - Describe In Comment [facility] 01/21/2019 Cold sores ?? Pineapple Anaphylaxis High 02/17/2013 ?? Pyridoxine Other - Describe In Comment [facility] 01/21/2019 Cold sores ?? Riboflavin (Vitamin B2) Other - Describe In Comment [facility] 01/21/2019 Cold sores ?? Thiamine (Vitamin B1) Other - Describe In Comment [facility] 01/21/2019 Cold sores ?? Cyanocobalamin (Vitamin B12) Other - Describe In Comment [facility] 01/21/2019 Cold sores ?? Medications Reconcile with Patient's Chart Medication Sig Dispensed Refills Start Date End Date Status Magnesium Glycinate 100 mg tab?? Take by mouth. ?? 0 04/16/2019 ?? Active sertraline (Zoloft) 100 mg tablet?? Take 1 Tablet (100 mg) by mouth once daily. ?? 0 02/03/2021 ?? Active ivabradine (CORLANOR) 5 mg tablet?? Indications: Inappropriate sinus tachycardia Take 1 Tablet (5 mg) by mouth 2 times daily with meals.180 Tablet?? 3 02/16/2021 ?? Active metoprolol tartrate (LOPRESSOR) 25 mg tablet?? Indications: SVT (supraventricular tachycardia) (HC) Take 1 Tablet (25 mg) by mouth one time if needed for Other (Specify) for up to 1 dose. For Heart rates >150 beats per minutes ?? 0 02/17/2021 ??Active nadoloL (CORGARD) 40 mg tablet?? Indications: Palpitations 40 mg (1 tablet) once a day for 3 days then increase to 40 mg (1 tablet) in the morning and 20 mg (half a tablet) in the evening by mouth. Stop taking your metoprolol succinate the day after you start the Nadolol 180 Tablet?? 0 02/24/2021 ?? Active gabapentin (NEURONTIN) 300 mg capsule?? Take 1 Capsule (300 mg) by mouth 2 times daily. ?? 0 02/25/2021 ?? Active diazePAM (Valium) 5 mg tablet?? Take 1 Tablet (5 mg) by mouth at bedtime. ?? 0 03/01/2021 ?? Active melatonin 10 mg tab?? Take by mouth. ?? 0 03/01/2021 ?? Active sucralfate (CARAFATE) 1 gram tablet?? Indications: Gastroesophageal reflux disease, unspecified whether esophagitis present Take 1 Tablet (1 g) by mouth 4 times daily before meals and at bedtime. 120 Tablet?? 0 03/01/2021 ?? Active esomeprazole (NEXIUM) 40 mg capsule?? Indications: Gastroesophageal reflux disease, unspecified whether esophagitis present Take 1 Capsule(40 mg) by mouth once daily before a meal. 30 Capsule?? 0 03/01/2021 ?? Active ondansetron (ZOFRAN) 4 mg tablet?? Indications: Nausea 1 tab twice daily as needed 60 Tablet?? 2 03/03/2021 ?? Active gabapentin (NEURONTIN) 300 mg capsule?? Take 2 capsules by mouth 3 times daily. ?? 0 05/23/2020 02/25/2021 Discontinued (*Medication adjustment) ALPRAZolam (Xanax) 0.5 mg tablet?? .5mg prn may repeat x 1. ?? 0 02/03/2021 02/25/2021 Discontinued (*Medication adjustment) QUEtiapine (SEROQUEL) 50 mg tablet?? Take 6 Tablets (300 mg) by mouth at bedtime. ?? 0 02/03/2021 02/25/2021 Discontinued (*Medication adjustment) metoprolol succinate (Toprol XL) 25 mg Sustained-Release tablet?? Indications: SVT (supraventricular tachycardia) (HC), Palpitations Take 25 mg (1 tablet) in the am and 12.5 mg (half of a tablet) in the evening by mouth 90 Tablet?? 0 02/17/2021 02/27/2021 Discontinued (*Med complete/Regimen complete/Level of care change) QUEtiapine (SEROQUEL) 25 mg tablet?? Take 3 Tablets (75 mg) by mouth at bedtime. ?? 0 02/25/2021 03/01/2021 Discontinued (*Patient states no longer taking/Not on sending facility list) diazePAM (Valium) 5 mg tablet?? Take 1.5 Tablets (7.5 mg) by mouth once daily. ?? 0 02/25/2021 03/01/2021 Discontinued (*Medication adjustment) LORazepam (ATIVAN) 1 mg tablet?? Take 1 Tablet (1 mg) by mouth 2 times daily if needed. ?? 0 02/25/2021 03/03/2021 Discontinued (*Med complete/Regimen complete/Level of care change) pantoprazole (PROTONIX) 40 mg delayed-release tablet?? Take 1 Tablet (40 mg) by mouth once daily. ??0 03/01/2021 03/03/2021 Discontinued (*Med complete/Regimen complete/Level of care change) Active Problems Reconcile with Patient's Chart Problem Noted Date SVT (supraventricular tachycardia) 05/27/2019 Controlled substance agreement signed 11/15/2016 Overview: ?? Signed 11/13/2016 Dr Magui Langfordzo Psychiatry?? Anxiety 10/10/2016 Psychophysiological insomnia 10/10/2016 Panic disorder without agoraphobia 09/03/2012 Attention deficit disorder with hyperactivity(314.01) 11/16/2008 Depressive disorder, not elsewhere classified 08/18/2008 Conduct disorder, adolescent onset type 08/18/2008 Encounters - from Last 3 Months Date Type Specialty Care Team Description 03/19/2021 Telephone Cardiology Nelson Gonzalez MD?? Concerns 03/03/2021 Telemedicine Family Practice Sergio Kim MD?? Telehealth (no vitals taken); General Illness/Other (no appetite/bowel mvmt day 7) 03/03/2021 Travel ? 03/02/2021 Nurse/Clinic Staff Only Family Practice ?? Cardiovascular Diagnostic Testing (EKG PER ) 03/02/2021 Telephone Cardiology Nelson Gonzalez MD?? Medication Management Surgical History Surgery Date Site/Laterality Comments WISDOM TEETH EXTRACTION ? Medical History Medical History Date Comments Environmental allergies ? Stress headaches ? Panic attack ? Heartburn ? Depression ? Family History Medical History Relation Name Comments Other Father ?? pituitary tumor Alcohol/Drug Mother ? Izzy's thyroiditis Mother ? Psychiatric illness Mother ?? Patrica, mom was adopted Relation Name Status Comments Brother ?? Alive ?? Father ?? Alive ?? Mother ?? Alive ?? Sister ?? Alive ?? Sister ?? Alive ?? Social History Tobacco Use Types Packs/Day Years Used Date Current Every Day Smoker Cigarettes 0.5 ?? Quit: 01/22/2013 Smokeless Tobacco: Former User ? Tobacco Cessation: Ready to Quit: Yes; Counseling Given: Yes Alcohol Use Standard Drinks/Week Comments No 0 (1 standard drink = 0.6 Allergies: Allergies Allergen Reactions ??? Kiwi Anaphylaxis ??? Pineapple Anaphylaxis ??? Cephalexin Nausea and Vomiting Problem List: There are no problems to display for this patient. Past Medical History: No past medical history on file. Past Surgical History: No past surgical history on file. Family History: No family history on file. Social History: Marital Status: Single [1] Social History Tobacco Use ??? Smoking status: Not on file Substance Use Topics ??? Alcohol use: Not on file ??? Drug use: Not on file Medications: CORLANOR 5 MG tablet EPINEPHrine (ANY BX GENERIC EQUIV) 0.3 MG/0.3ML injection 2-pack gabapentin (NEURONTIN) 600 MG tablet magnesium chloride 535 (64 Mg) MG TBEC CR tablet metoprolol tartrate (LOPRESSOR) 25 MG tablet Multiple Vitamins-Minerals (HALINA MULTIVITAMIN FOR MEN) TABS PHENobarbital (LUMINAL) 32.4 MG tablet sertraline (ZOLOFT) 100 MG tablet Review of Systems As mentioned above in the history present illness. All other systems were reviewed and are negative. Physical Exam BP: (!) 155/100 Pulse: 87 Temp: 98 ??F (36.7 ??C) Resp: 16 Weight: 77.1 kg (170 lb) SpO2: 99 % Physical Exam Vitals and nursing note reviewed. Constitutional: General: He is not in acute distress. Appearance: Normal appearance. He is well-developed. He is not ill-appearing or diaphoretic. HENT: Head: Normocephalic and atraumatic. Right Ear: External ear normal. Left Ear: External ear normal. Nose: Nose normal. Eyes: General: No scleral icterus. Extraocular Movements: Extraocular movements intact. Conjunctiva/sclera: Conjunctivae normal. Neck: Trachea: No tracheal deviation. Cardiovascular: Rate and Rhythm: Normal rate and regular rhythm. Heart sounds: Normal heart sounds. No murmur heard. No friction rub. No gallop. Pulmonary: Effort: Pulmonary effort is normal. No respiratory distress. Breath sounds: Normal breath sounds. No wheezing, rhonchi or rales. Abdominal: General: There is no distension. Palpations: Abdomen is soft. Tenderness: There is no abdominal tenderness. Musculoskeletal: General: No swelling or tenderness. Normal range of motion. Cervical back: Normal range of motion and neck supple. Right lower leg: No edema. Left lower leg: No edema. Skin: General: Skin is warm and dry. Coloration: Skin is not pale. Findings: No erythema or rash. Neurological: General: No focal deficit present. Mental Status: He is alert and oriented to person, place, and time. Cranial Nerves: Cranial nerves are intact. No cranial nerve deficit ( 2-12 intact), dysarthria or facial asymmetry. Sensory: Sensation is intact. No sensory deficit. Motor: Motor function is intact. No weakness or abnormal muscle tone. Coordination: Coordination is intact. Coordination normal. Gait: Gait is intact. Gait normal. Comments: Left lower extremity light touch and pinprick sensation intact. Psychiatric: Behavior: Behavior normal. Comments: Very anxious appearing. ED Course Procedures EKG Interpretation: Interpreted by Pedrito Noguera MD Time reviewed: Upon completion Symptoms at time of EKG: Rapid palpitations Rhythm: normal sinus Rate: [place]: Horizontal axis Ectopy: none Conduction: RSR in V1, normal ST Segments/ T Waves: No ST-T wave changes Q Waves: none Comparison to prior: Unchanged from 03/15/2021 Clinical Impression: Normal sinus rhythm with no acute EKG changes, rate 94 Results for orders placed or performed during the hospital encounter of 03/19/21 (from the past 24 hour(s)) CBC with platelets, differential Narrative The following orders were created for panel order CBC with platelets, differential. Procedure Abnormality Status --------- ------ CBC with platelets and d...[[id number]] Abnormal Final result Please view results for these tests on the individual orders. Basic metabolic panel Result Value Ref Range Sodium 139 133 - 144 mmol/L Potassium 4.0 3.4 - 5.3 mmol/L Chloride 106 94 - 109 mmol/L Carbon Dioxide (CO2) 26 20 - 32 mmol/L Anion Gap 7 3 - 14 mmol/L Urea Nitrogen 10 7 - 30 mg/dL Creatinine 0.79 0.66 - 1.25 mg/dL Calcium 9.3 8.5 - 10.1 mg/dL Glucose 86 70 - 99 mg/dL GFR Estimate >90 >60 mL/min/1.73m2 Troponin I Result Value Ref Range Troponin I <0.015 0.000 - 0.045 ug/L CBC with platelets and differential Result Value Ref Range WBC Count 13.3 (H) 4.0 - 11.0 10e3/uL RBC Count 5.52 4.40 - 5.90 10e6/uL Hemoglobin 17.2 13.3 - 17.7 g/dL Hematocrit 48.6 40.0 - 53.0 % MCV 88 78 - 100 fL MCH 31.2 26.5 - 33.0 pg MCHC 35.4 31.5 - 36.5 g/dL RDW 12.2 10.0 - 15.0 % Platelet Count 242 150 - 450 10e3/uL % Neutrophils 73 % % Lymphocytes 18 % % Monocytes 6 % % Eosinophils 2 % % Basophils 1 % % Immature Granulocytes 0 % NRBCs per 100 WBC 0 <1 /100 Absolute Neutrophils 9.7 (H) 1.6 - 8.3 10e3/uL Absolute Lymphocytes 2.4 0.8 - 5.3 10e3/uL Absolute Monocytes 0.9 0.0 - 1.3 10e3/uL Absolute Eosinophils 0.3 0.0 - 0.7 10e3/uL Absolute Basophils 0.1 0.0 - 0.2 10e3/uL Absolute Immature Granulocytes 0.0 <=0.0 10e3/uL Absolute NRBCs 0.0 10e3/uL D dimer quantitative Result Value Ref Range D-Dimer Quantitative <0.27 0.00 - 0.50 ug/mL FEU Narrative This D-dimer assay is intended for use in conjunction with a clinical pretest probability assessment model to exclude pulmonary embolism (PE) and deep venous thrombosis (DVT) in outpatients suspected of PE or DVT. The cut-off value is 0.50 ug/mL FEU. Magnesium Result Value Ref Range Magnesium 2.1 1.6 - 2.3 mg/dL Medications metoprolol tartrate (LOPRESSOR) tablet 25 mg (25 mg Oral Given 03/19/211715) ibuprofen (ADVIL/MOTRIN) tablet 400 mg (400 mg Oral Given 03/19/211715) Assessments & Plan (with Medical Decision Making) 30 year old male from the [facility], with history of anxiety, depression, chemical dependency (alcohol and benzodiazepine) and PSVT with a prior ablation procedure who presents for evaluation of rapid palpitations and left leg tingling. Chronic daily rapid palpitations with chest pain, but without syncope and smart device recording of SVT and sinus tach with rate approximately 160(reviewed by me on his cell phone). Last evening he developed left lower leg tingling sensation fromjust above the knee (involving the proximal leg) and extending distally in a stocking glove distribution throughout distal leg and foot. No leg weakness. No leg discoloration or swelling. His examination is normal with no objective sensory deficit and no neurologic deficit or abnormality. Doubt PE/DVT. Doubt lumbar radiculopathy or neurogenic claudication as cause of the left leg symptoms. Left leg paresthesias probably secondary to anxiety regarding his worsened rapid palpitations. In the ED EKG showed normal sinus rhythm and he remained in normal sinus rhythm throughout the ED course while monitored here. Interestingly he thought that he is having rapid palpitations when his initial EKG was performed, which showed normal sinus rhythm with rate 94. He appears very anxious regarding his rapid palpitations and feels that he needs another ablation procedure. He repeatedly expressed that he had a particular Lighting Fixtures Decorator in the past who was only one that would listen to me and performed the ablation. He wants referral to a new EP rib trim separator. He was previously on Nadolol and Corlanor/Ivabradine(5 mg twice daily) therapy per his [facility] Lighting Fixtures Decorator at [facility], but since admission to [facility] recently his beta-terrence therapy has been switched to Metoprolol tartrate 25 mg twice daily, and his palpitations have worsened, although his benzodiazepine dependence and abuse is also being treated and now his anxiety is worsening. He is unhappy with his Lighting Fixtures Decorator at the [facility] and would like referral for new EP Lighting Fixtures Decorator and get another monitor and storage bin tender study. He believes that he needs another ablation procedure. I will make a referral to EP cardiology and order an outpatient 7-day Zio patch monitor study. He declined resumption of Nadolol therapy instead of Metoprolol because he wants to ensure that his symptomatic rapid palpitations/PSVT is captured on the monitor study. He appears stable for discharge back to [facility] with continued monitoring there. He was provided instructions for supportive care and will return as needed for worsened condition or worsening symptoms, or new problems or concerns. I have reviewed the nursing notes. I have reviewed the findings, diagnosis, plan and need for follow up with the patient. Discharge Medication List as of 03/19/2021 5:34 PM Final diagnoses: Palpitations Sinus tachycardia Paroxysmal supraventricular tachycardia (H) Paresthesia of left leg Anxiety 03/19/2021 [facility] EM[facility]GENCY [facility]PT Pedrito Noguera MD 03/19/211814 documented in this encounter Miscellaneous Notes Result Encounter Note - Fer Freeman RN - 03/19/2021 5:50 PM CDT Within normal reference range. documented in this encounter Plan of Treatment Scheduled Orders Name Type Priority Associated Diagnoses Order S [facility] Leadless EKG Cardiac Services YASSINE Palpitations Expected: Monitor 3 to 7 Sinus tachycardi a 03/19/2021 Days Paroxysmal (Approximate), supraventricular Expires: tachycardia (H) 06/19/2021 Scheduled Referrals Name Type Priority Associated Diagnoses Order S [facility] Adult Cardiology Referral Routine: Next Palpitations Expected: Eval Referral available opening Sinus tachycar hina 03/19/2021 Paroxysmal (Approximate), supraventricular Expires: tachycardia (H) 03/19/2022 documented as of this encounter Procedures Procedure Name Priority Date/Time Associated Comments Diagnosis MAGNESIUM STAT 03/19/2021 5:15 PM Results f or this CDT procedure are i n the results section. D DIMER QUANTITATIVE STAT 03/19/2021 5:15 PM R esults for this CDT procedure are i n the results section. CBC WITH PLATELETS STAT 03/19/2021 3:57 PM Res ults for this AND DIFFERENTIAL CDT procedure a re in the results section. CBC WITH PLATELETS & STAT 03/19/2021 3:57 PM R esults for this DIFFERENTIAL CDT procedure are i n the results section. TROPONIN I STAT 03/19/2021 3:57 PM Results f or this CDT procedure are i n the results section. BASIC METABOLIC PANEL STAT 03/19/2021 3:57 PM Results for this CDT procedure are i n the results section. EKG 12-LEAD, TRACING STAT 03/19/2021 3:50 PM R esults for this ONLY CDT procedure are i n the results section. documented in this encounter Results Magnesium (03/19/2021 5:15 PM CDT) P athologist Signature Magnesium 2.1 1.6 - 2.3 03/19/2021 [facility] mg/dL 5:52 PM CDT Specimen Anatomical Collection Method / Collection Time Recei shakeel Time (Source) Location / Volume Laterality Blood VENOUS LINE / Venipuncture / 03/19/2021 5:15 1 5:34 Unknown Unknown PM CDT PM CDT Pedrito Noguera MD LAB - BLOOD ORDERABLES Performing Organization Address City/State/[place] [address] [phone] Acute Care Lab [address] [place] [address]. Room # 2186 [place] [address], [facility] [phone] Acute Care Lab [address] [place] [address]. Room # 2186 D dimer quantitative (03/19/2021 5:15 PM CDT) Analysis Performed At Patho logist Time Signature D-Dimer <0.27 0.00 - 03/19/2021 [facility] Quantitative 0.50 ug/mL 5:49 PM CDT FEU Specimen Anatomical Collection Method / Collection Time Recei shakeel Time (Source) Location / Volume Laterality Blood VENOUS LINE / Venipuncture / 03/19/2021 5:15 1 5:34 Unknown Unknown PM CDT PM CDT Narrative [facility] - 03/19/2021 5:49 PM CDT This D-dimer assay is intended for use i n conjunction with a clinical pretest probability assessment model to exclude pulmonary embolism (PE) and deep venous thrombosis (DVT) in outpatients suspecte d of PE or DVT. The cut-off value is 0.50 ug/mL FEU. Pedrito Noguera MD LAB - BLOOD ORDERABLES Performing Organization Address City/State/[place] [address] [phone] Acute Care Lab [address] [place] [address]. Room # 2186 [place] [address], [facility] [phone] Acute Care Lab [address] [place] [address]. Room # 2186 (ABNORMAL) CBC with platelets and differential (03/19/2021 3:57 PM CDT) [facility] Method Time Signature WBC Count 13.3 (H) 4.0 - 03/19/2021 [facility] 11.0 4:11 PM CDT 10e3/uL RBC Count 5.52 4.40 - 03/19/2021 [facility] 5.90 4:11 PM CDT 10e6/uL Hemoglobin 17.2 13.3 - 03/19/2021 [facility] 17.7 g/dL 4:11 PM CDT Hematocrit 48.6 40.0 - 03/19/2021 [facility] 53.0 % 4:11 PM CDT MCV 88 78 - 100 03/19/2021 [facility] fL 4:11 PM CDT MCH 31.2 26.5 - 03/19/2021 [facility] 33.0 pg 4:11 PM CDT MCHC 35.4 31.5 - 03/19/2021 [facility] 36.5 g/dL 4:11 PM CDT RDW 12.2 10.0 - 03/19/2021 [facility] 15.0 % 4:11 PM CDT Platelet Count 242 150 - 450 03/19/2021 [facility] 10e3/uL 4:11 PM CDT % Neutrophils 73 % 03/19/2021 [facility] 4:11 PM CDT % Lymphocytes 18 % 03/19/2021 [facility] 4:11 PM CDT % Monocytes 6 % 03/19/2021 [facility] 4:11 PM CDT % Eosinophils 2 % 03/19/2021 [facility] 4:11 PM CDT % Basophils 1 % 03/19/2021 [facility] 4:11 PM CDT % Immature 0 % 03/19/2021 [facility] Granulocytes 4:11 PM CDT NRBCs per 100 0 <1 /100 03/19/2021 [facility] WBC 4:11 PM CDT Absolute 9.7 (H) 1.6 - 8.3 03/19/2021 [facility] Neutrophils 10e3/uL 4:11 PM CDT Absolute 2.4 0.8 - 5.3 03/19/2021 [facility] Lymphocytes 10e3/uL 4:11 PM CDT Absolute 0.9 0.0 - 1.3 03/19/2021 [facility] Monocytes 10e3/uL 4:11 PM CDT Absolute 0.3 0.0 - 0.7 03/19/2021 [facility] Eosinophils 10e3/uL 4:11 PM CDT Absolute 0.1 0.0 - 0.2 03/19/2021 [facility] Basophils 10e3/uL 4:11 PM CDT Absolute 0.0 <=0.0 03/19/2021 [facility] Immature 10e3/uL 4:11 PM CDT Granulocytes Absolute NRBCs 0.0 10e3/uL 03/19/2021 [facility] 4:11 PM CDT Specimen Anatomical Collection Method / Collection Time Recei shakeel Time (Source) Location / Volume Laterality Blood STRUCTURE OF LEFT Venipuncture / 03/19/2021 3:57 03/19 4:08 UPPER LIMB / Unknown PM CDT PM CDT Unknown Pedrito Noguera MD LAB - BLOOD ORDERABLES Performing Organization Address City/State/[place] [address] [phone] Acute Care Lab [address] [place] [address]. Room # 2186 [place] [address], [facility] [phone] Acute Care Lab [address] [place] [address]. Room # 2186 Troponin I (03/19/2021 3:57 PM CDT) athologist Signature Troponin I <0.015 0.000 - 03/19/2021 [facility] 0.045 ug/L 4:31 PM CDT Comment: The 99th percentile for upper r eference range is 0.045ug/L. Troponin values in the range of 0.045 - 0.120 ug/L may b e associated with risks of adverse clinical events. Specimen Anatomical Collection Method / Collection Time Recei shakeel Time (Source) Location / Volume Laterality Blood STRUCTURE OF LEFT Venipuncture / 03/19/2021 3:57 03/19 4:08 UPPER LIMB / Unknown PM CDT PM CDT Unknown Pedrito Noguera MD LAB - BLOOD ORDERABLES Performing Organization Address City/State/[place] [address] [phone] Acute Care Lab [address] [place] [address]. Room # 2186 [place] [address], [facility] [phone] Acute Care Lab [address] [place] [address]. Room # 2186 Basic metabolic panel (03/19/2021 3:57 PM CDT) athologist Signature Sodium 139 133 - 144 03/19/2021 [facility] mmol/L 4:27 PM CDT Potassium 4.0 3.4 - 5.3 03/19/2021 [facility] mmol/L 4:27 PM CDT Chloride 106 94 - 109 03/19/2021 [facility] mmol/L 4:27 PM CDT Carbon Dioxide 26 20 - 32 03/19/2021 [facility] (CO2) mmol/L 4:27 PM CDT Anion Gap 7 3 - 14 03/19/2021 [facility] mmol/L 4:27 PM CDT Urea Nitrogen 10 7 - 30 03/19/2021 [facility] mg/dL 4:27 PM CDT Creatinine 0.79 0.66 - 03/19/2021 [facility] 1.25 mg/dL 4:27 PM CDT Calcium 9.3 8.5 - 10.1 03/19/2021 [facility] mg/dL 4:27 PM CDT Glucose 86 70 - 99 03/19/2021 [facility] mg/dL 4:27 PM CDT GFR Estimate >90 >60 03/19/2021 [facility] mL/min/1.7 4:27 PM CDT 3m2 Comment: As of December [...] Time (Source) Location / Volume Laterality Blood STRUCTURE OF LEFT Venipuncture / 03/19/2021 3:57 03/19 4:08 UPPER LIMB / Unknown PM CDT PM CDT Unknown Pedrito Noguera MD LAB - BLOOD ORDERABLES Performing Organization Address City/State/Z[place] [address] [phone] Acute Care Lab [address] [place] [address]. Room # 2186 [place] [address], [facility] [phone] Acute Care Lab [address] [place] [address]. Room # 2186 EKG 12 lead (03/19/2021 3:50 PM CDT) Narrative This result has an attachment that is no t available. Pedrito Noguera MD ECG ORDERABLES documented in this encounter Visit Diagnoses Diagnosis Palpitations Sinus tachycardia Other specified cardiac dysrhythmias Paroxysmal supraventricular tachycardia (H) Paroxysmal supraventricular tachycardia Paresthesia of left leg Disturbance of skin sensation Anxiety Anxiety state, unspecified documented in this encounter Administered Medications Inactive Administered Medications - up to 3 most recent administrations Medication Order MAR Action Action Date Dose Rate Site ibuprofen (ADVIL/MOTRIN) tablet Given 03/19/2021 5:16 PM CDT 400 mg 400 mg 400 mg, Oral, ONCE, On 03/19/21 at 1700, For 1 dose, Give with food. metoprolol tartrate (LOPRESSOR) tablet 2 5 mg Given 03/19/2021 5:16 PM CDT 25 mg 25 mg, Oral, ONCE, On 03/19/21 at 1700, For 1 dose documented in this encounter Active and Recently Administered Medications Times are shown in CDT. Scheduled Medication Order 03/17/2021 03/18/2021 03/19/2021 ibuprofen (ADVIL/MOTRIN) tablet 400 mg (COMPLETED) 1716 (Given - Provider: Jaime Molina RN) 400 mg, Oral, ONCE, On 03/19/21 at 1700, For 1 dose, Give wi th food. metoprolol tartrate (LOPRESSOR) tablet 25 mg (COMPLETED) 1716 (Given - Provider: Jaime Molina RN) 25 mg, Oral, ONCE, On 03/19/21 at 1700, For 1 dose documented in this encounter Care Teams Cab Worker Relationship Specialty Start Date End Date No Ref-Primary, Physician PCP - General 03/15/21 documented as of this encounter
--- OUTSIDE RECORDS SUMMARY | 2022-01-16 18:20 | XMS_ITS | Encounter Summary ---
:1990 Author Organization [facility] Address [address] [place] [address] Care Team Providers Name Role Phone Elsewhere, Pcp Primary Care Provider Unavailable Reason for Visit Reason Comments Rapid Heart Rate Pt called remote monitoring to talk about his elevated HR Encounter Details Date Type Department Care Team Description 07/03/2021 Documentation RST CCM Kaci Colvin Rapid Heart Rate (Pt 200 1ST [facility] AYAKA Borjas, C.N.P., called remote [place], [place] M.S.N. monitoring to talk [phone] about his eleva leeann HR) Social History Tobacco Use Types Packs/Day Years Used Date Smoking Tobacco: Every Day Cigarettes Smokeless Tobacco: Former Chew Alcohol Habits Answer Date Recorded How often do you have a drink containing alcohol? Never 07/18/2021 How many drinks containing alcohol do you have on a typical Not asked day when you are drinking? How often do you have six or more drinks on one occasion? No t asked Comment: Not asked Social Isolation Answer Date Recorded In a typical week, how many times do you talk on the phone O nce a week 07/18/2021 with family, friends, or neighbors? How often do you get together with friends or relatives? Nev er 07/18/2021 How often do you attend sabianism or restorationism services? Never 07/18/2021 Do you belong to any clubs or organizations such as sabianism N o 07/18/2021 groups, unions, fraternal or [...] place to sleep or slept in a usp (including now)? Education Answer Date Recorded What is the highest level of school you have GED or equivale nt 05/20/2021 completed or the highest degree you have received? 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 - 07/03/2021 9:04 PM CST Remote Cardiac Monitoring Alert I was contacted by the remote cardiac monitoring staff for an emergent alert on the patient's remoteheart rhythm device. Luisito Rainey had the remote monitor placed by Dr. Donald , due to SYMPTOMS; ARRHYTHMIA: palpitations. The remote monitoring staff was called by this pt about concerns of his heart rate. He states that his watch told him his HR was 160's. Upon review of monitor per classroom monitor his highest rate was 147 today in an SVT. Due to pts concern, I contacted this patient at the following phone number: [phone] He reported that he was awake at this time and at home. The following symptoms were noted during this time period palpitations occurring when he would work a bit harder. The symptoms were relieved by decreased work. He notes that he is currently off his BB in anticipation for the upcoming EP study, which controlled his rates, and would like to know if he should take one intermittently due to his increased HR. His watch was readying HR of 170's, during which time the remote monitor was recording rates in the 130-140's. I advised and instructed the patient to If symptoms return go to your nearest ER, if he began to feel chest pain, shortness of breath, dizziness/lightheadedness, syncope, vomiting and Rapid pulse > than 150. The patient verbalized and restated understanding, and will proceed to the ER if this should occur with the previous ss. I will forward a copy of this note to the team that ordered the remote monitoring, Dr. Donald whomhas this pt scheduled for a EP study with ablation for 07/07/21. We will ask this clinic to follow upwith pt about if he should take his BB. Kaci Colvin APRN, C.N.P., M.S.N. [facility]U RST [facility] Pager: [phone] (CVICU MANAGER MAINTENANCE) [employer]ING AND TESTING LEAD HAND Rodrigo Donald M.D., Ph.D. - 07/03/2021 9:04 PM CST Can we let patient know that - it would be up to him to hold BB or not. I would definitely recommendhe hold it from Sat-Saturday. If we are able to see arrhythmia we will be much better at helping him with mapping and ablation. If he feels terrible, its not unreasonable to take a prn dose ECTING AND TESTING LEAD HAND documented in this encounter Plan of Treatment Not on filedocumented as of this encounter Visit Diagnoses Not on filedocumented in this encounter Additional Health Concerns Assessment Noted Time PHQ-9 Depression Total Score: 11 09/09/2015 4:10 PM CD T documented as of this encounter Care Teams Credit Risk Specialist Relationship Specialty Start Date End Date Elsewhere, Pcp PCP - General Internal Medicine 07/04/21 documented as of this encounter
--- OUTSIDE RECORDS SUMMARY | 2022-01-16 18:20 | XMS_ITS | Encounter Summary ---
:1990 Author Organization [facility] Address [address] [place] [address] Care Team Providers Name Role Phone Elsewhere, Pcp Primary Care Provider Unavailable Reason for Visit Auth/Cert Specialty Diagnoses / Procedures Referred By Contact Refer red To Contact Diagnoses Tachycardia Supraventricular (HCC) Procedures SD EP EVAL W SUPRAVENT ABLATE DIAGNOSTIC EPS ABLATION - SVT Referral ID Status Reason Start Date Expiration Date Visits Requ ested Visits Authorized [id number] 1 1 Encounter Details Date Type Department Care Team Description 07/07/2021 Anesthesia Event Division of Cardiovascular Alex Mauro in [facility], TOW MATE, CUSTOMER CARE REPRESENTATIVE [place] [address] [facility] [address] [place] [phone] Anesthesia Record Procedure Summary Procedure Name Responsible Anesthesiologist Anesthesia Start Ti me Anesthesia Stop Time DIAGNOSTIC EPS Yee Mauro, TOW MATE, 07/07/21 0801 07/07 1107 CUSTOMER CARE REPRESENTATIVE Events Date Time Event Comment 07/07/2021 0801 An Start Machine/Equipmen t Checked Infection Precautions Foll owed Procedure/Site Verified NPO Sta tus Verified Supine Standard ASA Mon itors Applied 0833 Turnover to Proceduralist 0838 Proc Start 1054 Proc Fin 1057 Turnover to ANE Staff 1057 an stop data 1107 An End I completed my h andoff to the receiving staff during [facility] 1. Identified the patient 2. Ident ified the responsible provider 3. Revi ewed the pertinent medical history 4. Discu ssed the surgical course 5. Reviewed intra-o p anesthesia management and issues during an esthesia 6. Set expectations for post-procedure period 7. Allowed opportun ity for questions and acknowledgement of understanding. Name Total midazolam PF injection 1 mg/mL 4 mg fentanyl injection 50 mcg/mL 25 mcg lidocaine 2% (mg) injection 80 mg propofol 10 mg/mL infusion 1,005.13 mg propofol bolus from bag 265 mg clindamycin 900 mg IVPB 900 mg phenylephrine 20 mg/250 mL infusion 3.86 mg heparin 1,000 units/mL injection 7,000 Units heparin standard 76324 Units/250 mL in 0.45 % Sodium C hloride infusion 1,838.45 Units caffeine-sodium benzoate 250 mg (125 mg caffeine)/mL i njection 500 mg isoproterenol 4 mcg/mL in NaCl 0.9% 250 mL infusion (I SUPREL) 0.21 mg protamine 10 mg/mL injection 40 mg Lactated Ringers Free Drip 700 mL lactated ringers free drip 400 mL Agents No agents on file. Blood No blood administrations on file. Lines, Drains, and Airways Type Details Placement Removal Peripheral IV Placement Date: 07/07/21 07 by 07/07/21 1459 b y 07/07/21; Placement Mynor Silva R.N. Schwob, Ann M, Time: 07; Catheter R.N. Size: 20 G; Orientation: Left; Location: Hand; Site Prep: Chlorhexidine (Preferred); Removal Date: 07/07/21; Removal Time: 1459; Removal Reason: Patient discharged Peripheral IV Placement Date: 07/07/21 08 by 07/07/21 1459 b y 07/07/21; Placement Yee Mauro Schwob, Ann M, Time: 08; Catheter PASHA MARLEY R.N. Size: 20 G; Orientation: Right; Location: Hand; Removal Date: 07/07/21; Removal Time: 1459; Removal Reason: Patient discharged Arterial Line Placement Date: 07/07/21824 by 07/07/21 1043 b y 07/07/21; Placemnt Time: Yee Mauro Hi nes, Erin G, 824 (created via PASHA MARLEY R.NJeremie procedure documentation); Size: 20 G; Orientation: Left; Location: Radial; Site Prep: Chlorhexidine (Preferred); Technique: Anatomical landmarks; Insertion Attempts: 1; Securement: Securement dressing, Securement device; Removal Date: 07/07/21; Removal Time: 1043 Indwelling Urinary Placement Date: 07/07/21 08 by 07/07/21 104 3 by Catheter 07/07/21; Placement Jn Mann Eri n G, Time: 826; Inserted by: Kilo MCKINNON U/T; Type: Double-lumen, Latex; Size: 16 Fr.; Balloon Size: 10 mL; Urine Returned: Yes; Removal Date: 07/07/21; Removal Time: 1043 Percutaneous Access 07/07/21; 09; 07/07/21 0902 by 07/07/21 10 43 by Site Temporary (non-tunneled, Nellie Peralta, Kilo vargas, Nellie Tracy, non-implanted); Venous; R.N. Right Femoral; 8 Fr., 6 Fr., 5 Fr.; Ultrasound; 07/07/21; 1043 Percutaneous Access 07/07/21; 09; 07/07/21 0904 by 07/07/21 10 43 by Site Temporary (non-tunneled, Nellie Peralta, Kilo vargas, Nellie Tracy, non-implanted); Venous; R.N. Left Femoral; 8 Fr., 5 Fr.; Ultrasound, Micropuncture; 07/07/21; 1043 documented in this encounter Social History Tobacco Use Types Packs/Day Years [...] er 07/18/2021 How often do you attend scientologist or anglican services? 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 Responsible Provider: Yee Mauro APRN, CRNA Anesthesia Type: MAC ASA Status: 2 Anesthesia Type: MAC Last vitals Vitals Value Taken Time BP 104/61 07/07/21 1130 Temp Pulse 96 07/07/21 1135 Resp SpO2 99 % 07/07/21 1135 Vitals shown include unvalidated device data. Please reference Vitals flowsheet for most recent vital signs. Anesthesia Post Evaluation Patient Disposition: dismissal Cardiovascular status: hemodynamics (HR & BP) acceptable Respiratory status: patent airway with spontaneous effort Temperature: normothermic Oxygen requirements: room air Level of consciousness: awake Pain score: pain adequately controlled and/or at baseline Post Op nausea/vomiting: none Hydration status: euvolemic CAL DELIVERY TECHNICIAN Anesthesia Preprocedure Evaluation - Yee Mauro APRN, CRNA - 07/07/2021 8:48 AM CST Preprocedure Anesthesia & H&P Assessment Procedure Summary Anesthesia Start Date/Time: 07/07/21 0801 Procedures: DIAGNOSTIC EPS (N/A ) - 07/06/2021 @ 11:23 AM: Covid test: Completed - 07/06/2021; Questionaire: Yes.cv/ps ABLATION - SVT (N/A ) - aVNRt redo- had slow pathway ablation 05/26/2019 and EPS with no inducible arrhythmia 12/13/2020 elsewhere Diagnosis: Tachycardia Supraventricular (HCC) [I47.1] Pre-op diagnosis: Tachycardia Supraventricular (HCC) [I47.1] Location: [place] [address] / [facility] Surgeons: Rodrigo Gray M.D., Ph.D. Pertinent components of the patient's history including current problem list, medical history, surgical history, family history, social history, medications and allergies were reviewed. Present illnessand pre-op diagnosis were confirmed. The planned surgery / procedure was verified with the patient /legal guardian. The patient's general health condition remains unchanged RELEVANT COMORBID CONDITIONS CV (+) Tachycardia Supraventricular (HCC) PSYCH (+) Depression Major OBJECTIVE PHYSICAL EXAMINATION Airway (HEENT) Mallampati: III TM Distance: >3 FB Neck ROM: Full Mouth Opening: >3 cm Upper Lip Bite Test Class: II Cardiovascular Rhythm: Regular Rate: Normal Cardiovascular Assessment: cardiovascular normal Functional Capacity: <4 METS Pulmonary Pulmonary Assessment: Clear General / Constitutional Constitutional Assessment: Normal General State of Health:: in distress and healthy appearing Neurological Neurologic Assessment:??alert and alert and oriented x 3 Dental Dental Assessment: dentition intact ASSESSMENT / PLAN ANESTHESIA PLAN ASA: 2 Anesthesia Plan: MAC Patient seen and allergies reviewed, anesthesia plan and risks discussed directly with patient /legal guardian or through an spanish medical interpreter. Risks/Benefits/Alternatives of Blood transfusion discussed with patient / legal guardian, including an opportunity to ask questions and/or decline some or all transfusion therapies. The patient / legalguardian consented to the use of all blood products, as deemed medically necessary Approval to Proceed: approved for anesthesia CAL DELIVERY TECHNICIAN Anesthesia Procedure Notes - Yee Mauro APRN, CRNA - 07/07/2021 8:34 AM CSTAssociated Order(s): Invasive Catheter Invasive Catheter Date/Time: 07/07/2021 8:25 AM Performed by: Yee Mauro APRN, CRNA Authorized by: Yee Mauro APRN, CRNA Location: OR PROCEDURE DETAILS: Line type: arterial Laterality: left Location: radial Location details: new site Age group: adult Catheter diameter: 20 Ga Technique: palpation Monitored: yes Number of attempts: 1 UNIVERSAL PROTOCOL All relevant documentation and testing were reviewed and available. All required blood products, implants, devices and or special equipment were made available as applicable. Pre-procedure verificationwas conducted and the correct site was marked if required. A fire risk assessment was done as applicable. The procedural time-out was conducted prior to performing the procedure and confirmed in a procedural pause. PRE-PROCEDURE DETAILS: Appropriate hand hygiene, gown, cap, mask, protective eyewear, sterile gloves, skin preparation, sterile drape, and strict aseptic technique were utilized as applicable for the procedure.: yes Skin preparation: chlorhexidine SEDATION / ANESTHESIA Anesthesia method: anesthesia POST-PROCEDURE DETAILS: Procedure completed successfully: yes Line secured: secured with sutureless device Chlorhexidine disc around insertion site and under catheter with slight turn: yes Complications - arterial: none ATTESTATION STATEMENT CAL DELIVERY TECHNICIAN documented in this encounter Plan of Treatment Not on filedocumented as of this encounter Procedures Procedure Name Priority Date/Time Associated Diagnosis Comme nts LDA ANE ARTERIAL Routine 07/07/2021 8:25 AM Resul ts for this LINE INSERTION MEDICAL DELIVERY TECHNICIAN procedure are in the results section. SD ARTL CATH/CNULA Routine 07/07/2021 8:25 AM Res ults for this MONITOR PERC MEDICAL DELIVERY TECHNICIAN procedure are i n the results section. documented in this encounter Results SD ARTL CATH/CNULA MONITOR PERC, LDA ANE ARTERIAL LINE INSERTION (07/07/2021 8:25 AM MEDICAL DELIVERY TECHNICIAN) Narrative Yee Mauro APRN, CRNA - 2021 8:25 AM MEDICAL DELIVERY TECHNICIAN Yee Mauro APRN, CRNA ? 07/07/2021 ??8:35 AM Invasive Catheter Date/Time: 07/07/2021 8:25 AM Performed by: Yee Mauro APRN, CRNA Authorized by: Yee Mauro APRN, CRNA Location: OR PROCEDURE DETAILS: Line type: arterial ?? Laterality: left Location: radial Location details: new site ? Age group: adult Catheter diameter: 20 Ga Technique: palpation ?? Monitored: yes ?? Number of attempts: 1 UNIVERSAL PROTOCOL All relevant documentation and testing w ere reviewed and available. All required blood products, implants, devic es and or special equipment were made available as applicable. Pre-proced ure verification was conducted and the correct site was marked if required. A fire risk assessment was done as applicable. The procedural time-out w as conducted prior to performing the procedure and confirmed in a procedu ral pause. PRE-PROCEDURE DETAILS: Appropriate hand hygiene, gown, cap, mas k, protective eyewear, sterile gloves, skin preparation, sterile drape, and strict aseptic technique were utilized as applicable for the procedure .: yes ?? Skin preparation: chlorhexidine ?? SEDATION / ANESTHESIA Anesthesia method: anesthesia POST-PROCEDURE DETAILS: Procedure completed successfully: yes ?? Line secured: secured with sutureless de vice Chlorhexidine disc around insertion site and under catheter with slight turn: yes ?? Complications - arterial: none ATTESTATION STATEMENT Yee Mauro APRN, CRNA PROCEDURE/MINOR SURGICAL ORDERABLES documented in this encounter Visit Diagnoses Not on filedocumented in this encounter Administered Medications Inactive Administered Medications - up to 3 most recent administrations Medication Order MAR Action Action Date Dose Rate Site caffeine-sodium benzoate injection Given 07/07/2021 9:52 AM MEDICAL DELIVERY TECHNICIAN 250 mg intravenous, As needed, Starting on Sat07/07/21 at 0919, Anesthesia Intra-op Given 07/07/2021 9:19 AM MEDICAL DELIVERY TECHNICIAN 250 mg clindamycin in D5W IVPB (CLEOCIN) Given 07/07/2021 8:29 AM MEDICAL DELIVERY TECHNICIAN 900 mg intravenous, Administer over 30 Minutes, As needed, Starting on Sat07/07/21 at 0829, Anesthesia Intra-op fentaNYL injection (SUBLIMAZE) Given 07/07/2021 10:37 AM MEDICAL DELIVERY TECHNICIAN 25 mcg intravenous, As needed, Starting on Sat07/07/21 at 1037, Anesthesia Intra-op heparin (porcine) 1,000 unit/mL Given 07/07/2021 10:12 AM MEDICAL DELIVERY TECHNICIAN 1, 000 Units injection intravenous, As needed, Starting on Sat07/07/21 at 0901, Anesthesia Intra-op Given 07/07/2021 9:44 AM MEDICAL DELIVERY TECHNICIAN 1,000 Units Given 07/07/2021 9:01 AM MEDICAL DELIVERY TECHNICIAN 5,000 Units heparin (porcine) 100 Rate/Dose 07/07/2021 18 Units/kg/hr 14.94 Units/mL in NaCl 0.45% 250 Change 10:12 AM MEDICAL DELIVERY TECHNICIAN mL/hr mL infusion intravenous, Continuous Infusion: Per Instructions PRN, Starting on Sat07/07/21 at 0903, Anesthesia Intra-op Rate/Dose Change 07/07/2021 9:43 AM MEDICAL DELIVERY TECHNICIAN 15 Units/kg/hr 12.45 mL/hr New Bag 07/07/2021 9:03 AM MEDICAL DELIVERY TECHNICIAN 12 Units/kg/hr 9.96 mL/hr isoproterenol 4 mcg/mL in NaCl Restarted 07/07/2021 10:25 0.1 mc g/kg/min 124.5 mL/hr 0.9% 250 mL infusion (ISUPREL) AM MEDICAL DELIVERY TECHNICIAN intravenous, Continuous Infusion: Per Instructions PRN, Starting on Sat07/07/21 at 0939, Anesthesia Intra-op Rate/Dose Change 07/07/2021 10:15 AM MEDICAL DELIVERY TECHNICIAN 0.1 mcg/kg/min 124.5 mL/hr Rate/Dose Change 07/07/2021 10:08 AM MEDICAL DELIVERY TECHNICIAN 0.05 mcg/kg/min 62.25 mL/h r lactated ringers New Bag 07/07/2021 8:01 AM MEDICAL DELIVERY TECHNICIAN intravenous, Continuous Infusion: Per Instructions PRN, Starting on Sat07/07/21 at 0801, Anesthesia Intra-op lactated ringers New Bag 07/07/2021 8:25 AM MEDICAL DELIVERY TECHNICIAN intravenous, Continuous Infusion: Per Instructions PRN, Starting on Sat07/07/21 at 0825, Anesthesia Intra-op lidocaine (PF) (cardiac) injection Given 07/07/2021 10:40 AM MEDICAL DELIVERY TECHNICIAN 80 mg intravenous, As needed, Starting on Sat07/07/21 at 1040, Anesthesia Intra-op midazolam (PF) injection (VERSED) Given 07/07/2021 10:58 AM MEDICAL DELIVERY TECHNICIAN 2 mg intravenous, As needed, Starting on Sat07/07/21 at 1035, Anesthesia Intra-op Given 07/07/2021 10:35 AM MEDICAL DELIVERY TECHNICIAN 2 mg phenylephrine 80 mcg/mL in Rate/Dose 07/07/2021 9:50 1.2 mcg/kg/min 74.7 mL/hr NaCl 0.9% 250 mL infusion Change AM MEDICAL DELIVERY TECHNICIAN intravenous, Continuous Infusion: Per Instructions PRN, Starting on Sat07/07/21 at 0845, Anesthesia Intra-op Rate/Dose Change 07/07/2021 9:46 AM MEDICAL DELIVERY TECHNICIAN 1 mcg/kg/min 62.25 mL/hr Rate/Dose Change 07/07/2021 9:45 AM MEDICAL DELIVERY TECHNICIAN 0.9 mcg/kg/min 56.025 mL/hr propofol 10 mg/mL infusion Rate/Dose 07/07/2021 100 mcg/kg/min 49.8 mL/hr (DIPRIVAN) Change 10:43 AM MEDICAL DELIVERY TECHNICIAN intravenous, Continuous Infusion: Per Instructions PRN, Starting on Sat07/07/21 at 0808, Anesthesia Intra-op Restarted 07/07/2021 10:40 AM MEDICAL DELIVERY TECHNICIAN 75 mcg/kg/min 37.35 mL/hr Rate/Dose Change 07/07/2021 9:36 AM MEDICAL DELIVERY TECHNICIAN 50 mcg/kg/min 24.9 mL/hr propofol bolus from bag (DIPRIVAN) Given 07/07/2021 10:43 AM MEDICAL DELIVERY TECHNICIAN 25 mg intravenous, As needed, Starting on Sat07/07/21 at 0807, Anesthesia Intra-op Given 07/07/2021 10:39 AM MEDICAL DELIVERY TECHNICIAN 50 mg Given 07/07/2021 8:19 AM MEDICAL DELIVERY TECHNICIAN 50 mg protamine injection Given 07/07/2021 10:39 AM MEDICAL DELIVERY TECHNICIAN 20 mg intravenous, As needed, Starting on Sat07/07/21 at 1037, Anesthesia Intra-op Given 07/07/2021 10:38 AM MEDICAL DELIVERY TECHNICIAN 10 mg Given 07/07/2021 10:37 AM MEDICAL DELIVERY TECHNICIAN 10 mg documented in this encounter Additional Health Concerns Assessment Noted Time PHQ-9 Depression Total Score: 11 09/09/2015 4:10 PM CD T documented as of this encounter Care Teams Watcher [employer] Relationship Specialty Start Date End Date Elsewhere, Pcp PCP - General Internal Medicine 07/04/21 documented as of this encounter
--- OUTSIDE RECORDS SUMMARY | 2022-01-16 18:20 | XMS_ITS | Encounter Summary ---
:1990 Author Organization [facility] Address [address] [place] [address] Care Team Providers Name Role Phone Unavailable Primary Care Provider Unavailable Encounter Details Date Type Department Care Team Description 10/05/2020 Orders Only [facility] Sa rubina Lancaster M.D. [address] [place], [place] [phone] (Wo rk) Social History Tobacco Use Types Packs/Day Years [...] er 07/18/2021 How often do you attend adventist or catholic services? Never 07/18/2021 Do you belong to any clubs or organizations such as adventist N o 07/18/2021 groups, unions, fraternal or [...] place to sleep or slept in a skilled nursing (including now)? 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
--- OUTSIDE RECORDS SUMMARY | 2022-01-16 18:20 | XMS_ITS | Encounter Summary ---
:1990 Author Organization [facility] Address [address] [place] [id number] Care Team Providers Name Role Phone Elsewhere, Pcp Primary Care Provider Unavailable Reason for Visit Reason Comments Results Encounter Details Date Type Department Care Team Description 07/07/2021 Clinical Department of [place], Results Communication Cardiovascular Rodrigo Arias, Medicine in [place], Karley, Ph. D. [address] [place] [phone] Social History Tobacco Use Types Packs/Day Years [...] er 07/18/2021 How often do you attend orthodox or tenriism services? Never 07/18/2021 Do you belong to any clubs or organizations such as orthodox N o 07/18/2021 groups, unions, fraternal or [...] place to sleep or slept in a retirement (including now)? Education Answer Date Recorded What is the highest level of school you have GED or equivale nt 05/20/2021 completed or the highest degree you have received? 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 - 07/07/2021 5:49 PM REPAIR ARMATURE WINDER HELPER Dr. Donald said he would call Mr. Rainey to discuss further. IR ARMATURE WINDER HELPER Telephone Encounter - Sameera Luong - 07/07/2021 3:56 PM CST SUBJECTIVE CHIEF COMPLAINT / REASON FOR CALL Results Name of caller: Luisito Rainey (patient) Patient expects communication via portal: No Phone number: [phone] Test Results Goal or summary: Mr. Rainey said he was talking to a Lorin but the call got dropped. I paged Deric, thinking it may have been her, but I didn't get an answer. I also tried Doctor Donald with no luck. Mr. Rainey said he was told on that phone call that the results of his EP study today 'were off the charts'. He said he is very upset that he was discharged home if that was the case. He would appreciate a callback YASSINE IR ARMATURE WINDER HELPER documented in this encounter Plan of Treatment Not on filedocumented as of this encounter Visit Diagnoses Not on filedocumented in this encounter Additional Health Concerns Assessment Noted Time PHQ-9 Depression Total Score: 11 09/09/2015 4:10 PM CD T documented as of this encounter Care Teams Personnel Technician Relationship Specialty Start Date End Date Elsewhere, Pcp PCP - General Internal Medicine 07/04/21 documented as of this encounter
--- OUTSIDE RECORDS SUMMARY | 2022-01-16 18:20 | XMS_ITS | Encounter Summary ---
:1990 Author Organization [facility] Address [address] [place] [id number] Care Team Providers Name Role Phone Elsewhere, Pcp Primary Care Provider Unavailable Reason for Visit Auth/Cert Specialty Diagnoses / Procedures Referred By Contact Refer red To Contact Diagnoses Tachycardia Supraventricular (HCC) Procedures NJ EP EVAL W SUPRAVENT ABLATE DIAGNOSTIC EPS ABLATION - SVT Referral ID Status Reason Start Date Expiration Date Visits Requ ested Visits Authorized [id number] 1 1 Encounter Details Date Type Department Care Team Description 07/07/2021 Surgery Division of Cardiovascular [facility] hall DIAGNOSTIC EPS Diseases in [place]ana Diaz M.D., Ph.D. [place] [id number] [place] [id number] [place] [address] [phone] Social History Tobacco Use Types Packs/Day Years [...] er 07/18/2021 How often do you attend hindu or restorationism services? Never 07/18/2021 Do you belong to any clubs or organizations such as hindu N o 07/18/2021 groups, unions, fraternal or [...] place to sleep or slept in a senior living (including now)? Education Answer Date Recorded What is the highest level of school you have GED or equivale nt 05/20/2021 completed or the highest degree you have received? 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 documented as of this encounter Last Filed Vital Signs Vital Sign Reading Time Taken Comments Blood Pressure 98/43 07/07/2021 12:45 PM FARM EQUIPMENT ENGINEER Pulse 101 07/07/2021 12:45 PM FARM EQUIPMENT ENGINEER Temperature 36.9 ??C (98.5 ??F) 07/07/2021 7:18 AM FARM EQUIPMENT ENGINEER Respiratory Rate - - Oxygen Saturation 100% 07/07/2021 12:45 PM FARM EQUIPMENT ENGINEER Inhaled Oxygen Concentration - - Weight - - Height - - Body Mass Index - - documented in this encounter Discharge Instructions Discharge InstructionsFYanna prescott - 07/07/2021 12:26 PM CST You were discharged from the [facility] Interventional/Heart Rhythm Service. Please identify this service name if you call with questions after hospitalization. Hospital Problems as of 07/07/2021 1. * (Principal) Tachycardia Supraventricular (HCC) Status post previous AVNRT ablation Activity Restrictions: For 7 days after the procedure do not - lift, push, or pull more than 5-10lbs - do strenuous exercise (biking, weight lifting, aerobics, golfing) - strain - participate in sexual activity - do not submerge the wound sites, you may shower Driving Restrictions: -do not drive for 24 hours after discharge from the hospital Work/School Restrictions: Return to work/school in 7 days. Recurrence of your Arrhythmia: In the first three months after ablation it is not uncommon for patients to experience transient recurrence of their arrhythmias. Should you have sustained recurrence of your arrhythmia that last more than 24-48 hours; or symptoms become intolerable, you should seek immediate medical attention with your local providers and get an ECG. Seek Emergent Medical Treatment for: Chest pain, passing out, stroke symptoms, shortness of breath, recurrence of your arrhythmia with symptoms that are severe, temperature greater than 101.4, or excessive/prolonged bleeding events. Atrial esophageal fistula is a late complication after ablation. If you experience new difficulty swallowing, pain while swallowing, esophageal bleeding, fever of unclear etiology, or stroke-like symptoms, which may occur 1- 4 weeks post-procedure please seek immediate medical attention at your nearest local Emergency Department. Care of your Puncture Sites: Bandages may be removed 24 hrs after the procedure. You do not need to place new bandages. The wounds heal best open to the air. If there is a small amount of oozing or bleeding new bandages can be placed in an effort to prevent damage to clothing but is not required. Note that mild bruising and color change without pain may occur during normal healing at the puncture site. If you have active bleeding or swelling of the puncture site: - Lie down and apply firm pressure with two or three fingers over the puncture site for 15 minutes. - If you are alone when bleeding occurs or after holding pressure for 15 minutes, the bleeding continues, call 911 and continue to hold pressure until help arrives. - Do not try to drive yourself to the hospital. Call Your Local Provider for: - New or expanding swelling greater than a size of a golf ball at the groin puncture site/s. - Signs of infection (redness, drainage, fever) at the puncture site/s - Change in color, temperature, or sensation in the leg - Unusual feelings of weakness or faintness. Contact Information: Should you have any questions, concerns, or problems that occur Saturday through Saturday between 8:00 a.m. and 4:00 p.m., contact the Electrophysiology Service at [phone]. For questions occurring after business hours, on weekends, nights, or holidays call [phone] and ask for Electrophysiology Caf[employer]ia Food Server. Heart Failure Assessment: Weigh yourself at the same time every day on the same scale and record to bring to your next appointment. Please report any of the following signs or symptoms to your primary care provider urgently: - Weight increase of 2-3 pounds in one day or increase of 5 pounds over your baseline weight. - Increased swelling or bloating, fatigue, weakness, or shortness of breath. - Difficulty breathing, especially with activity and at night -Take your medications as directed; every day, every dose, and do not skip doses. -No tobacco (avoid secondhand smoke) -DO NOT avoid/skip your follow-up appointments, they are important! EQUIPMENT ENGINEER documented in this encounter Medications at Time of Discharge Medication Sig Dispensed Refills Start Date End Date EPINEPHrine 0.3 Inject intramuscularly 0 03/08/20 21 mg/0.3 mL injection as needed. syringe gabapentin Take 300 mg by mouth 2 0 06/05/2021 (NEURONTIN) 300 mg (two) times a day. capsule gabapentin Take 600 mg by mouth 2 0 06/05/2021 (NEURONTIN) 600 mg (two) times a day. tablet hydrOXYzine Take 100 mg by mouth as 0 (VISTARIL) 100 mg needed. capsule LORazepam (ATIVAN) 1 Take 1 tablet by mouth 0 mg tablet as needed. melatonin 10 mg Take 10 mg by mouth at 0 03/01/20 21 tablet bedtime. tmsyhtphjapi-Dc-eckj Take 1 tablet by mouth 0 -minerals tablet as needed. ondansetron (ZOFRAN) Take 4 mg by mouth as 0 02/09 4 mg tablet needed. sertraline (ZOLOFT) Take 100 mg by mouth 0 2021 100 mg tablet daily. dilTIAZem CD Take 1 capsule (120 mg 180 capsule 1 07/07/2021 09/29/2021 (CARDIZEM CD/CARTIA total) by mouth 2 (two) XT) 120 mg 24 hr times a day. capsule documented as of this encounter Nursing Notes Daxa Adler R.N. - 07/07/2021 3:07 PM CST The patients femoral dressing is dry and intact. Vital signs are stable. No complaints of chest pain. No hematoma or bleeding present. No change in neuro status from prior to procedure. Ambulated without difficulty. Dismissal instructions were reviewed in detail as per [id number] with patient and family and they verbalized understanding. Follow up appointment is arranged. Patient was dismissed when discharge criteria was met, accompanied byfriendAll questions answered. EQUIPMENT ENGINEER documented in this encounter Plan of Treatment Not on filedocumented as of this encounter Procedures Procedure Name Priority Date/Time Associated Diagnosis Comme nts ECG Routine 07/07/2021 11:37 Results for this AM FARM EQUIPMENT ENGINEER procedure are i n the results section. HEART RHYTHM Routine 07/07/2021 10:57 Tachycardia Results for this PROCEDURE AM FARM EQUIPMENT ENGINEER Supraventricular (HCC) proce dure are in the results section. ACT, POCT, B Routine 07/07/2021 10:45 Results for this AM FARM EQUIPMENT ENGINEER procedure are i n the results section. ACT, POCT, B Routine 07/07/2021 10:07 Results for this AM FARM EQUIPMENT ENGINEER procedure are i n the results section. ACT, POCT, B Routine 07/07/2021 9:40 Results for this AM FARM EQUIPMENT ENGINEER procedure are i n the results section. ACT, POCT, B Routine 07/07/2021 9:22 Results for this AM FARM EQUIPMENT ENGINEER procedure are i n the results section. ABG AND LYTES Routine 07/07/2021 9:19 Results for this EG6+, POCT, B AM FARM EQUIPMENT ENGINEER procedure are in the results section. documented in this encounter Results ECG 12 Lead (07/07/2021 11:37 AM FARM EQUIPMENT ENGINEER) P athologist Signature Ventricular Rate 92 BPM MUSE ECG/Min [place] Interval 144 ms MUSE QRSD Interval 90 ms MUSE QT Interval 346 ms MUSE QTC Interval 427 ms MUSE P [place] 51 degrees MUSE R [place] -3 degrees MUSE T Wave [place] 43 degrees MUSE Specimen Anatomical Collection Method Collection Time Receive d Time (Source) Location / / Volume Laterality 07/07/2021 11:37 07/07/2021 AM FARM EQUIPMENT ENGINEER 11:38 AM FARM EQUIPMENT ENGINEER Impressions MUSE - 07/07/2021 11:38 AM FARM EQUIPMENT ENGINEER Normal sinus rhythm Normal ECG When compared with ECG of 06-JUL-2021 11 :26, No significant change was found Reviewed by PANCHO Whittaker Narrative This result has an attachment that is no t available. Procedure Note Gordon Stephen Jr., M.D. - 07/07/2021For matting of this note might be different from the original. IMPRESSION: Normal sinus rhythm Normal ECG When compared with ECG of 06-JUL-2021 11 :26, No significant change was found Reviewed by PANCHO Whittaker Rodrigo Gray M.D., Ph.D. ECG ORDERABLES Performing Organization Address City/State/ZIP Code Phon e Number MUSE MUSE NA DIAGNOSTIC EPS (07/07/2021 10:57 AM FARM EQUIPMENT ENGINEER) Anatomical Region Laterality Modality X-Ray Angiography Specimen (Source) Anatomical Collection Method Collection Time Re ceived Time Location / / Volume Laterality 07/07/2021 8:38 AM FARM EQUIPMENT ENGINEER Narrative 07/07/2021 11:38 AM FARM EQUIPMENT ENGINEER For the complete report, see the Order-L evel Documents. PROCEDURE TYPES 1. ??DIAGNOSTIC EPS PRE-PROCEDURE DIAGNOSIS 1. ??Tachycardia Supraventricular (HCC) DIAGNOSTIC/ABLATION INTRA-PROCEDURE - MAC Anesthesia - Patient heparinization - Catheter placement - Basic interval determination - Patient underwent atrial/ventricular p acing protocols. - Isoproterenol testing - Caffeine testing RADIATION DOSE DATA Procedure cumulative skin dose (mGy): 21 .57 Procedure cumulative dose area product ( Gy-cm2): 2.77 Fluoro Time (Min): 5.35 For the complete report, see the Order-L evel Documents. Rodrigo Gray M.D., Ph.D. CV ELECTROPHYSIOLO GY PROCS ACT (Activated Clotting Time), POCT (07/07/2021 10:45 AM FARM EQUIPMENT ENGINEER) P athologist Signature Activated 114 84 - 139 07/07/2021 PCSM Clotting Time, sec 10:52 AM FARM EQUIPMENT ENGINEER POCT Specimen Anatomical Collection Method Collection Time Receive d Time (Source) Location / / Volume Laterality Blood 07/07/2021 10:45 07/07/2021 AM FARM EQUIPMENT ENGINEER 10:53 AM FARM EQUIPMENT ENGINEER Unknown Provider LAB POCT ORDERABLES - DEVICE Performing Organization Address City/State/ZIP Code Phon e Number POC [facility] [address] [place], [place] [address] LABS PCSM [facility] [place] [address] [place] [facility] [address] (ABNORMAL) ACT (Activated Clotting Time), POCT (07/07/2021 10:07 AM FARM EQUIPMENT ENGINEER) P athologist Signature Activated 211 (H) 84 - 139 07/07/2021 PCSM Clotting Time, sec 10:16 AM FARM EQUIPMENT ENGINEER POCT Specimen Anatomical Collection Method Collection Time Receive d Time (Source) Location / / Volume Laterality Blood 07/07/2021 10:07 07/07/2021 AM FARM EQUIPMENT ENGINEER 10:17 AM FARM EQUIPMENT ENGINEER Unknown Provider LAB POCT ORDERABLES - DEVICE Performing Organization Address City/State/ZIP Code Phon e Number POC [facility] [address] [place], [place] [address] [place] [address] [place] [facility] [address] (ABNORMAL) ACT (Activated Clotting Time), POCT (07/07/2021 9:40 AM FARM EQUIPMENT ENGINEER) P athologist Signature Activated 211 (H) 84 - 139 07/07/2021 PCSM Clotting Time, sec 9:49 AM FARM EQUIPMENT ENGINEER POCT Specimen Anatomical Collection Method Collection Time Receive d Time (Source) Location / / Volume Laterality Blood 07/07/2021 9:40 AM 2 9:49 FARM EQUIPMENT ENGINEER AM FARM EQUIPMENT ENGINEER Unknown Provider LAB POCT ORDERABLES - DEVICE Performing Organization Address City/[facility] Phon e Number POC [facility] [address] [place], [place] [address] [place] [address] [place] [facility] [address] (ABNORMAL) ACT (Activated Clotting Time), POCT (07/07/2021 9:22 AM FARM EQUIPMENT ENGINEER) P athologist Signature Activated 216 (H) 84 - 139 07/07/2021 PCSM Clotting Time, sec 9:33 AM FARM EQUIPMENT ENGINEER POCT Specimen Anatomical Collection Method Collection Time Receive d Time (Source) Location / / Volume Laterality Blood 07/07/2021 9:22 AM 2 9:33 FARM EQUIPMENT ENGINEER AM FARM EQUIPMENT ENGINEER Unknown Provider LAB POCT ORDERABLES - DEVICE Performing Organization Address City/[facility]/ZIP [facility] Phon e Number POC [facility] [address] [place], [place] [address] [place] [address] [place] [facility] [address] (ABNORMAL) ABG and Lytes, POCT (07/07/2021 9:19 AM FARM EQUIPMENT ENGINEER) P athologist Signature Sample Site, Artline 07/07/2021 PCLX POCT 9:33 AM FARM EQUIPMENT ENGINEER Comment: ----ADDITIONAL INFORMATION---- Performed at the Point of Care pH, POCT 7.34 (L) 7.35 - 7.45 07/07/2021 9:33 AM FARM EQUIPMENT ENGINEER PCLX Comment: ----ADDITIONAL INFORMATION---- Performed at the Point of Care pCO2, POCT 51 (H) 35 - 48 mm Hg 07/07/2021 9:33 AM FARM EQUIPMENT ENGINEER PC LX Comment: ----ADDITIONAL INFORMATION---- Performed at the Point of Care pO2, POCT 151 (H) 83 - 108 mm Hg 07/07/2021 9:33 AM FARM EQUIPMENT ENGINEER PC LX Comment: ----ADDITIONAL INFORMATION---- Performed at the Point of Care Base, POCT 2 -2 - 3 mmol/L 07/07/2021 9:33 AM FARM EQUIPMENT ENGINEER PC LX Comment: ----ADDITIONAL INFORMATION---- Performed at the Point of Care HCO3, POCT 28 (H) 22 - 26 mmol/L 07/07/2021 9:33 AM FARM EQUIPMENT ENGINEER P CLX Comment: ----ADDITIONAL INFORMATION---- Performed at the Point of Care Sodium, POCT, B 140 135 - 145 mmol/L 07/07/2021 9:33 A M FARM EQUIPMENT ENGINEER PCLX Comment: ----ADDITIONAL INFORMATION---- Performed at the Point of Care Potassium, POCT, B 3.5 (L) 3.6 - 5.2 mmol/L 07/07/2021 9:3 3 AM FARM EQUIPMENT ENGINEER PCLX Comment: ----ADDITIONAL INFORMATION---- Performed at the Point of Care Hematocrit, POCT, B 41.0 38.3 - 48.6 % 07/07/2021 9:33 AM FARM EQUIPMENT ENGINEER PCLX Comment: ----ADDITIONAL INFORMATION---- Performed at the Point of Care Specimen Anatomical Collection Method Collection Time Receive d Time (Source) Location / / Volume Laterality Blood 07/07/2021 9:19 AM 9:33 FARM EQUIPMENT ENGINEER AM FARM EQUIPMENT ENGINEER Unknown Provider LAB POCT ORDERABLES - DEVICE Performing Organization Address City/State/ZIP Code Phon e Number POC [facility] [address] [place] [address] PCLX [facility] [place] [address] [place] [facility] [address] documented in this encounter Visit Diagnoses Diagnosis Tachycardia Supraventricular (HCC) - Bette polo Tachycardia Supraventricular (HCC) documented in this encounter Admitting Diagnoses Diagnosis Tachycardia Supraventricular (HCC) documented in this encounter Administered Medications Inactive Administered Medications - up to 3 most recent administrations Medication Order MAR Action Action Date Dose Rate Site acetaminophen injection 1,000 mg 1,000 mg, intravenous, at 400 mL/hr, Adm inister over 15 Minutes, Once as needed, other, If patient has not received in pr evious 6 hours, Starting on Sat07/07/21 at 1106, For 1 dose, PACU (only), Oral unle ss RASS less than -1 or nausea/vomiting. Do not use if given in last 6 hours, Restri ction Criteria (Pharmacy will review and approve if criteria met): Unable to take or tolerate medications administered via the enteral route or orally (not just NPO) acetaminophen tablet 1,000 mg (TYLENOL) 1,000 mg, oral, Once as needed, other, I f patient has not received in the previous 6 hours, Starting on Sat07/07/21 at 1106 , For 1 dose, PACU (only), Oral unless RASS less than -1 or nausea/vomiting. Do not use if given i n last 6 hours dilTIAZem CD 24 hr capsule 120 mg (CARDIZEM Given 07/07/2021 2:46 PM FARM EQUIPMENT ENGINEER 120 mg CD/CARTIA XT) 120 mg, oral, Once, On Sat07/07/21 at 1430, For 1 dose, PACU (only), Swallow whole. Do NOT crush, chew or open capsule. erythromycin 5 mg/gram (0.5 %) ophthalmic Given 07/07/2021 2:46 PM FARM EQUIPMENT ENGINEER 1 cm ointment 1 cm (ROMYCIN) 1 cm, right eye, 2 times daily, First dose on Sat07/07/21 at 1345, For 3 days, PACU (only) fentaNYL injection 25 mcg (SUBLIMAZE) 25 mcg, intravenous, Every 2 hour PRN, m oderate pain or score 4-6 of 10, Starting on Sat07/07/21 at 1111, Postprocedure (CV), May repeat x1 dosing interval, if patient unable to take oral analgesics or oral analges ics are ineffective fentaNYL injection 50 mcg (SUBLIMAZE) 50 mcg, intravenous, Every 2 hour PRN, s evere pain or score 7-10 of 10, Starting on Sat07/07/21 at 1111, Postprocedure (CV), May repeat x1 dosing interval, if patient unable to take oral analgesics or oral analgesics are ineffective lidocaine (PF) 10 mg/mL (1 %) injection 1 mL (XYLOCAINE) 1 mL, intradermal, As needed, with any s sy manipulation. (May repeat twice up to 1 mL each time if patient complains of pain or discomf ort at injection site), Starting on Sat07/07/21 at 0805, Intraprocedure (CV) lidocaine 10 mg/mL (1 %) injection Given 07/07/2021 10:46 AM FARM EQUIPMENT ENGINEER 10 mL Bilateral (XYLOCAINE) As needed, Starting on Sat07/07/21 at 0838, Intraprocedure (CV) Given 07/07/2021 8:39 AM FARM EQUIPMENT ENGINEER 10 mL Right Groin Given 07/07/2021 8:38 AM FARM EQUIPMENT ENGINEER 10 mL Left Groin LORazepam (ATIVAN) 1 mg tablet - ADS Ove rride Pull Starting on Sat07/07/21 at 1148, For 1 dose, Created b y cabinet override LORazepam tablet 1 mg (ATIVAN) Given 07/07/2021 12:25 PM FARM EQUIPMENT ENGINEER 1 mg 1 mg, oral, Once, On Sat07/07/21 at 1145, For 1 dose, PACU (only) nicotine polacrilex (NICORETTE) 2 mg gum - ADS Override Pull Starting on Sat07/07/21 at 1147, For 1 dose, Created b y cabinet override nicotine polacrilex gum 4 mg (NICORETTE) Given 07/07/2021 12:26 PM FARM EQUIPMENT ENGINEER 4 mg 4 mg, buccal, Every 1 hour PRN, smoking cessation, Starting on Sat07/07/21 at 1139, PACU (only), Chew gum slowly until it tingles, then park it between your cheek and gum; when tingle disappears, Repeat process until most of the tingle is gone (about 30 min). sodium chloride 0.9 % injection 10 mL 10 mL, intravenous, As needed, line care, Starting on Sat07/07/21 at 0708, Preprocedure (CV), Peripheral Intravenous Catheter and Rapid Infusion Catheter, prior to blood sampling, post blood transfusion or pos t blood sampling sodium chloride 0.9 % injection 3 mL 3 mL, intravenous, As needed, line care, Starting on 07/07/21 at 0708, Preprocedure (CV), Prior to and followin g infusion and between multiple consecutive infusions: sodium chloride 0.9 % injection sodium chloride 0.9 % injection 3 mL 3 mL, intravenous, Every 12 hours scheduled, First dos e on Sat07/07/21 at 0900, Preprocedure (CV), Peripheral Intravenous Catheter and Rapid Infusion Catheter, when no infusion to maintain patency documented in this encounter Active and Recently Administered Medications Times are shown in FARM EQUIPMENT ENGINEER. Scheduled Medication Order 07/05/2021 07/06/2021 07/07/2021 dilTIAZem CD 24 hr capsule 120 mg (CARDIZEM CD/CARTIA XT) (COMPL ETED) 1446 (Given - Provider: Daxa Adler RJeremieNJeremie) 120 mg, oral, Once, On Sat07/07/21 at 14 30, For 1 dose, PACU (only), Swallow whole. Do NOT crush, chew or open capsule. erythromycin 5 mg/gram (0.5 %) ophthalmic ointment 1 cm (ROMYCIN ) 1446 (Given - Provider: Daxa Adler RJeremieNJeremie) 1 cm, right eye, 2 times daily, First do se on Sat07/07/21 at 1345, For 3 days, PACU (only) LORazepam tablet 1 mg (ATIVAN) (COMPLETED) 1225 (Given - Provider: Polly HareNJeremie) 1 mg, oral, Once, On Sat07/07/21 at 1145, For 1 dose, PACU (only ) sodium chloride 0.9 % injection 3 mL 0900 (Due) 3 mL, intravenous, Every 12 hours schedu led, First dose on Sat07/07/21 at 0900, Preprocedure (CV), Peripheral Intravenous Catheter and Rapid Infusion Catheter, when no infusion to maintain patency PRN Medication Order 07/05/2021 07/06/2021 07/07/2021 acetaminophen injection 1,000 mg(Linked Group 1) 1,000 mg, intravenous, at 400 mL/hr, Adm inister over 15 Minutes, Once as needed, other, If patient has not received in previous 6 hours, Starting on Sat07/07/21 at 1106, For 1 dose, PACU (only), Oral un less RASS less than -1 or nausea/vomitin g. Do not use if given in last 6 hours, Restriction Criteria (Pharmacy will review and approve if criteria met): Unable to take or tolerate medications administer ed via the enteral route or orally (not just NPO) acetaminophen tablet 1,000 mg (TYLENOL)(Linked Group 1) 1,000 mg, oral, Once as needed, other, I f patient has not received in the previous 6 hours, Starting on Sat07/07/21 at 1106, For 1 dose, PACU (only), Oral unless RASS less than -1 or nausea/vomiting. Do not use if given in last 6 hours acetaminophen tablet 1,000 mg (TYLENOL) 1,000 mg, oral, Every 6 hours PRN, mild pain or score 1-3 of 10, Starting on Sat07/07/21 at 1111, Postprocedure (CV) docusate sodium capsule 100 mg (COLACE) 100 mg, oral, 2 times daily PRN, constip ation, Starting on Sat07/07/21 at 1111, Postprocedure (CV), Do NOT crush or chew. fentaNYL injection 25 mcg (SUBLIMAZE) 25 mcg, intravenous, Every 2 min PRN, mo derate pain or score 4-6 of 10, severe pain or score 7-10 of 10, Starting on Sat07/07/21 at 1106, PACU (only), Up to maximum total dose of 200 mcg fentaNYL injection 25 mcg (SUBLIMAZE)(Linked Group 2) 25 mcg, intravenous, Every 2 hour PRN, m oderate pain or score 4-6 of 10, Starting on Sat07/07/21 at 1111, Postprocedure (CV), May repeat x1 dosing interval, if patient unable to take oral analgesics or oral analgesics are ineffective fentaNYL injection 50 mcg (SUBLIMAZE)(Linked Group 2) 50 mcg, intravenous, Every 2 hour PRN, s evere pain or score 7-10 of 10, Starting on Sat07/07/21 at 1111, Postprocedure (CV), May repeat x1 dosing interval, if patient unable to take oral analgesics or oral analgesics are ineffective lidocaine (PF) 10 mg/mL (1 %) injection 1 mL (XYLOCAINE) 1 mL, intradermal, As needed, with any s sy manipulation. (May repeat twice up to 1 mL each time if patient complains of pain or discomfort at injection site), Starting on Sat07/07/21 at 0805, Intraprocedure (CV) lidocaine 10 mg/mL (1 %) injection (XYLOCAINE) (CANCELED) 0838 (Given - Provider: Nellie Peralta R.N. - Comment: total right and left groin)0839 (Given - Provider: Nellie Peralta R.N.)1046 (Given - Provider: Nellie Peralta R.N. - Comment: groins) As needed, Starting on Sat07/07/21 at 0838, Intraprocedure (CV) naloxone injection 0.2 mg (NARCAN) 0.2 mg, intravenous, As needed, respirat ory depression, Starting on Sat07/07/21 at 1111, Postprocedure (CV), For RASS Score -4 or less, respiratory rate of less than 8 breaths/min. Notify provider/servi ce and rapid response team (if available at institution). nicotine polacrilex gum 4 mg (NICORETTE) 1226 (Given - Provider: Daxa Adler RJeremieNJeremie) 4 mg, buccal, Every 1 hour PRN, smoking cessation, Starting on Sat07/07/21 at 1139, PACU (only), Chew gum slowly until it tingles, then park it between your cheek and gum; when tingle disappears, Repeat process until most of the tingle is gone (about 30 min). sodium chloride 0.9 % injection 10 mL 10 mL, intravenous, As needed, line care , Starting on Sat07/07/21 at 0708, Preprocedure (CV), Peripheral Intravenous Catheter and Rapid Infusion Catheter, prior to blood sampling, post blood transfusion or post blood sampling sodium chloride 0.9 % injection 3 mL 3 mL, intravenous, As needed, line care, Starting on Sat07/07/21 at 0708, Preprocedure (CV), Prior to and following infusion and between multiple consecutive infusions: sodium chloride 0.9 % injection Linked Groups Order Group 1: acetaminophen tablet 1,000 mg (TYLENOL)Jump to med 1,000 mg, oral, Once as needed, other, I f patient has not received in the previous 6 hours, Starting on Sat07/07/21 at 1106, For 1 dose, PACU (only)
Oral unless RASS less than -1 or nausea/vomiting. Do not use if given in last 6 hours
Or acetaminophen injection 1,000 mgJump to med 1,000 mg, intravenous, at 400 mL/hr, Adm inister over 15 Minutes, Once as needed, other, If patient has not received in previous 6 hours, Starting on Sat07/07/21 at 1106, For 1 dose, PACU (only)<br&gt ;Oral unless RASS less than -1 or nausea /vomiting. Do not use if given in last 6 hours
Restriction Criteria (Pharmacy will review and approve if criteria met): Unable to take or tolerate medica tions administered via the enteral route or orally (not just NPO) Group 2: fentaNYL injection 25 mcg (SUBLIMAZE)Jump to med 25 mcg, intravenous, Every 2 hour PRN, m oderate pain or score 4-6 of 10, Starting on Sat07/07/21 at 1111, Postprocedure (CV)
May repeat x1 dosing interval, if patient unable to take oral analgesics or oral analgesics are ineffective
Or fentaNYL injection 50 mcg (SUBLIMAZE)Jump to med 50 mcg, intravenous, Every 2 hour PRN, s evere pain or score 7-10 of 10, Starting on Sat07/07/21 at 1111, Postprocedure (CV)
May repeat x1 dosing interval, if patient unable to take oral analgesics or oral analgesics are ineffective
documented in this encounter Additional Health Concerns Assessment Noted Time PHQ-9 Depression Total Score: 11 09/09/2015 4:10 PM CD T documented as of this encounter Care Teams Extermination Inspector Relationship Specialty Start Date End Date Elsewhere, Pcp PCP - General Internal Medicine 07/04/21 documented as of this encounter
--- OUTSIDE RECORDS SUMMARY | 2022-01-16 18:20 | XMS_ITS | Encounter Summary ---
:1990 Author Organization [facility] Address [address] [place] [address] Care Team Providers Name Role Phone Unavailable Primary Care Provider Unavailable Reason for Visit Outpatient (Routine) - Canceled Specialty Diagnoses / Procedures Referred By Contact Refer red To Contact Diagnoses Tachycardia Supraventricular (HCC) Rodrigo Gray V., [facility] Procedures ECG Event Recorder Karley, Ph.D. [address] [place] [phone] Referral ID Status Reason Start Date Expiration Date Visits V isits Requested Authorized [id number] Canceled 05/25/2021 05/25/2022 1 1 Encounter Details Date Type Department Care Team Description 05/26/2021 [facility] [place], Tachycardia Encounter Cardiovascular Rodrigo Arias, Supraventr icular (HCC) Diseases in Karley, Ph.D. [place], [place] [address] [facility] [address] [place] [phone] Social History Tobacco Use Types Packs/Day Years [...] er 07/18/2021 How often do you attend yarsanism or taoism services? Never 07/18/2021 Do you belong to any clubs or organizations such as yarsanism N o 07/18/2021 groups, unions, fraternal or [...] place to sleep or slept in a long term (including now)? Education Answer Date Recorded What is the highest level of school you have GED or equivale nt 05/20/2021 completed or the highest degree you have received? 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 syringe LORazepam (ATIVAN) 1 Take 1 tablet by mouth 0 mg tablet as needed. melatonin 10 mg Take 10 mg by mouth at 0 03/01/20 21 tablet bedtime. dmotqjabxukz-Jr-znbb Take 1 tablet by mouth 0 -minerals tablet as needed. ondansetron (ZOFRAN) Take 4 mg by mouth as 0 02/09 4 mg tablet needed. dilTIAZem CD Take 1 capsule (120 mg 180 capsule 1 07/07/2021 09/29/2021 (CARDIZEM CD/CARTIA total) by mouth 2 (two) XT) 120 mg 24 hr times a day. capsule documented as of this encounter Plan of Treatment Not on filedocumented as of this encounter Visit Diagnoses Diagnosis Tachycardia Supraventricular (HCC) documented in this encounter Additional Health Concerns Assessment Noted Time PHQ-9 Depression Total Score: 11 09/09/2015 4:10 PM CD T documented as of this encounter
--- OUTSIDE RECORDS SUMMARY | 2022-01-16 18:20 | XMS_ITS | Encounter Summary ---
:1990 Author Organization [facility] Address [address] [place] [address] Care Team Providers Name Role Phone Elsewhere, Pcp Primary Care Provider Unavailable Reason for Referral Outpatient (Routine) - Closed Specialty Diagnoses / Procedures Referred By Contact Refer red To Contact Diagnoses Tachycardia Supraventricular (HCC) Rodrigo Gray V., [facility] Procedures ECG Event Recorder Karley, Ph.D. [address] [place] [phone] Referral ID Status Reason Start Date Expiration Date Visits Requ ested Visits Authorized [id number] Closed 07/10/2021 07/10/2022 1 1 FLAP BINDER Reason for Visit Outpatient (Routine) - Closed Specialty Diagnoses / Procedures Referred By Contact Refer red To Contact Diagnoses Tachycardia Supraventricular (HCC) Rodrigo Gray V., [facility] Procedures ECG Event Recorder Karley, Ph.D. [address] [place] [phone] Referral ID Status Reason Start Date Expiration Date Visits Requ ested Visits Authorized [id number] Closed 07/10/2021 07/10/2022 1 1 Encounter Details Date Type Department Care Team Description 07/10/2021 Hospital Division of [place], Tachycardia Encounter Cardiovascular Rodrigo Arias Supraventr icular (HCC) Diseases in Karley, Ph.D. [place], [place] [address] [facility] [address] [place] [phone] Social History Tobacco Use Types Packs/Day Years [...] How often do you attend sikh or episcopal services? Never 07/18/2021 Do you belong to [...] place to sleep or slept in a long-term (including now)? Education Answer Date Recorded What is the highest level of school you have GED or equivale nt 05/20/2021 completed or the highest degree you have received? Sex Assigned at Date Recorded Male 06/01/2020 11:57 AM EAR FLAP BINDER documented as of this encounter Medications at [...] mouth at 0 03/01/20 21 tablet bedtime. tpqtwhsiyqrs-Va-qgse Take 1 tablet by mouth 0 -minerals [...] Name Priority Date/Time Associated Diagnosis Comme nts EVENT MONITOR - Routine 07/06/2021 6:30 Tachycardia Results f or this ALL CHARGES AM EAR FLAP BINDER Supraventricular (HCC) proce dure are in the results section. documented in this encounter Results EVENT MONITOR - ALL CHARGES (07/06/2021 6:30 AM EAR FLAP BINDER) Specimen (Source) Anatomical Collection Method Collection Time Re ceived Time Location / / Volume Laterality 07/12/2021 1:51 PM EAR FLAP BINDER Narrative [facility] - 07/13/2021 8:41 AM EAR FLAP BINDER 1. The patient was monitored from 06/01/2021 to 07/06/2021. The patient's baseline rhythm was sinus with sinus arrhythmia. 2. No PVCs were seen. 3. PACs were seen singly. 4. The patient reported 82 symptomatic e vents of shortness of breath, heart racing, and dizziness. During these events, the rhythm was sinus with sinus arrhythmia. The heart rates varied from 62 to 150 BPM. No ectopy was seen. Staff Mechanical Engineer: PANCHO Fraire/PANCHO Trevino Procedure Note Gordon Stephen Jr., M.D. - 07/13/2021For matting of this note might be different from the original. 1. The patient was monitored from 2020 to 07/06/2021. The patient's baseline rhythm was sinus with sinus arrhythmia. 2. No PVCs were seen. 3. PACs were seen singly. 4. The patient reported 82 symptomatic e vents of shortness of breath, heart racing, and dizziness. During these events, the rhythm was sinus with sinus arrhythmia. The heart rates varied from 62 to 150 BPM. No ectopy was seen. Staff Mechanical Engineer: PANCHO Fraire/PANCHO Trevino Rodrigo Gray M.D., Ph.D. CV CARDIAC SERVICE S PROCEDURES Performing Organization Address City/State/ZIP Code Phon e Number [facility] documented in this encounter Visit Diagnoses Diagnosis Tachycardia Supraventricular (HCC) documented in this encounter Additional Health Concerns Assessment Noted Time PHQ-9 Depression Total Score: 11 09/09/2015 4:10 PM CD T documented as of this encounter Care Teams Transit Proof Machine Operator Relationship Specialty Start Date End Date Elsewhere, Pcp PCP - General Internal Medicine 07/04/21 documented as of this encounter
--- OUTSIDE RECORDS SUMMARY | 2022-01-16 18:20 | XMS_ITS | Encounter Summary ---
:1990 Author Organization [facility] Address [address] [place] [address] Care Team Providers Name Role Phone Unavailable Primary Care Provider Unavailable Reason for Visit Reason Comments Baseline Encounter Details Date Type Department Care Team Description 06/14/2021 Clinical Department of [place], Baseline Communication Cardiovascular Rodrigo Arias, Medicine in [place], Nitish., Ph. D. [address] [phone] [phone] Social History Tobacco Use Types Packs/Day Years [...] er 07/18/2021 How often do you attend jehovah's witness or buddhist services? Never 07/18/2021 Do you belong to any clubs or organizations such as jehovah's witness N o 07/18/2021 groups, unions, fraternal or [...] minutes do you engage in exercise at is 40 min 07/18/2021 level? Stress Answer [...] place to sleep or slept in a residential (including now)? Education Answer Date Recorded What is the highest level of school you have GED or equivale nt 05/20/2021 completed or the highest degree you have received? 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
--- OUTSIDE RECORDS SUMMARY | 2022-01-16 18:20 | XMS_ITS | Encounter Summary ---
:1990 Author Organization [facility] Address [address] [place] [address] Care Team Providers Name Role Phone Elsewhere, Pcp Primary Care Provider Unavailable Reason for Referral Outpatient (Routine) - Closed Specialty Diagnoses / Procedures Referred By Contact Refer red To Contact Diagnoses Tachycardia Supraventricular (HCC) Rodrigo Gray V., [facility] Procedures ECG Ambulatory Real Time Cardiac Monitoring Karley, Ph.D. [address] [place], [place] [phone] Referral ID Status Reason Start Date Expiration Date Visits Requ ested Visits Authorized [id number] Closed 08/08/2021 08/08/2022 1 1 RAFT NAVIGATOR Reason for Visit Outpatient (Routine) - Closed Specialty Diagnoses / Procedures Referred By Contact Refer red To Contact Diagnoses Tachycardia Supraventricular (HCC) Rodrigo Gray V., [facility] Procedures ECG Ambulatory Real Time Cardiac Monitoring Karley, Ph.D. [address] [place] [phone] Referral ID Status Reason Start Date Expiration Date Visits Requ ested Visits Authorized [id number] Closed 08/08/2021 08/08/2022 1 1 Encounter Details Date Type Department Care Team Description 08/08/2021 Hospital Division [facility] [place], Tachycardia Encounter Cardiovascular Rodrigo Arias Supraventr icular (HCC) Diseases in Karley, Ph.D. [place], [place] [address] [facility] [address] [place] [phone] Social History Tobacco Use Types Packs/Day Years [...] er 07/18/2021 How often do you attend yazidism or caodaism services? Never 07/18/2021 Do you belong to any clubs or organizations such as yazidism N o 07/18/2021 groups, unions, fraternal or [...] place to sleep or slept in a group home (including now)? Education Answer Date Recorded What is the highest level of school you have GED or equivale nt 05/20/2021 completed or the highest degree you have received? 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 edrfrkmdzknc-Ea-oowt Take 1 tablet by mouth 0 -minerals [...] Priority Date/Time Associated Diagnosis Comme nts ECG AMBULATORY Routine 09/14/2021 7:37 Tachycardia Results fo r this REAL TIME CARDIAC PM CDT Supraventricular (HCC) procedure are in MONITORING the results section. documented in this encounter Results ECG AMBULATORY REAL TIME CARDIAC MONITORING (09/14/2021 7:37 PM CDT) P athologist Signature Min Heart Rate 47 bpm [facility] Max Heart Rate 180 bpm [facility] Mean Heart 95 bpm [facility] Rate VE Total Beats <100 count [facility] VE Percent <1% percent [facility] Beats Holter Pauses 0 count [facility] AF Count 0 count [facility] AF Duration 0 sec duration [facility] AF [place] 0% percent [facility] VT Runs 0 count [facility] SVT Runs 0 count [facility] Symptom Count 136 count [facility] Specimen (Source) Anatomical Collection Method Collection Time Re ceived Time Location / / Volume Laterality 08/09/2021 7:23 AM AIRCRAFT NAVIGATOR Narrative [facility] - 09/20/2021 8:25 AM CDT 1. The patient was monitored from 08/16/2021 to 09/14/2021 with a total monitoring time of 7 days 12 hr 1 8 min. The baseline rhythm was sinus. Th e heart rate varied from 47 to 180 BPM. The average heart rate was 95 BPM. 2. There were <100 PVCs seen with a PVC burden of <1%. 3. There were<100 PACs seen with a PAC b urden of <1%. 4. The patient reported 136 symptomatic events of sweaty, confused, fast heart rate, dizzy, and shortness of breath. During these events, the rhythm was sinus. The heart rate varied from 74 to 170 BPM. [employer] Baseball Umpire: PANCHO Wiggins/ PANCHO Lee Procedure Note Bernabe Johnson M.D. - 09/20/2021Formatt ing of this note might be different from the original. 1. The patient was monitored from 08/17/19 to 09/14/2021 with a total monitoring time of 7 days 12 hr 18 min. The baseline rhythm was sinus. The heart rate varied from 47 to 180 BPM. The average heart rate was 95 BPM. 2. There were <100 PVCs seen with a PVC burden of <1%. 3. There were<100 PACs seen with a PAC b urden of <1%. 4. The patient reported 136 symptomatic events of sweaty, confused, fast heart rate, dizzy, and shortness of breath. During these events, the rhythm was sinus. The heart rate varied from 74 to 170 BPM. [employer] Umpire: PANCHO Wiggins/ PANCHO Lee Rodrigo Gray M.D., Ph.D. CV CARDIAC SERVICE S PROCEDURES Performing Organization Address City/State/ZIP Code Phon e Number [facility] NA documented in this encounter Visit Diagnoses Diagnosis Tachycardia Supraventricular (HCC) documented in this encounter Additional Health Concerns Assessment Noted Time PHQ-9 Depression Total Score: 11 09/09/2015 4:10 PM CD T documented as of this encounter Care Teams Stone Grader Relationship Specialty Start Date End Date Elsewhere, Pcp PCP - General Internal Medicine 07/04/21 documented as of this encounter
--- OUTSIDE RECORDS SUMMARY | 2022-01-16 18:20 | XMS_ITS | Encounter Summary ---
:1990 Author Organization [facility] Address [address] [place] [address] Care Team Providers Name Role Phone Unavailable Primary Care Provider Unavailable Encounter Details Date Type Department Care Team Description 09/05/2012 - Hospital Encounter HX RST GENEROSE 2 Esperanza Mason y 09/08/2012 DEUCE De La Rosa M.D. Social History Tobacco Use Types Packs/Day Years Used Date Smoking Tobacco: Never Assessed Alcohol Habits Answer Date Recorded How often [...] er 07/18/2021 How often do you attend confucianism or yarsanism services? Never 07/18/2021 Do you belong to any clubs or organizations such as confucianism N o 07/18/2021 groups, unions, fraternal or [...] place to sleep or slept in a assisted (including now)? 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 documented as of this encounter Last Filed Vital Signs Vital Sign Reading Time Taken Comments Blood Pressure 116/71 09/08/2012 8:12 AM CDT Pulse 74 09/08/2012 8:12 AM CDT Temperature - - Respiratory Rate 16 09/08/2012 8:12 AM CDT Oxygen Saturation - - Inhaled Oxygen Concentration - - Weight 57 kg (125 lb 10.6 oz) 09/05/2012 5:42 PM CDT Height 167 cm (5' 5.75) 09/05/2012 5:42 PM CDT Body Mass Index 20.44 09/05/2012 5:42 PM CDT documented in this encounter Plan of Treatment Not on filedocumented as of this encounter Visit Diagnoses Not on filedocumented in this encounter Additional Health Concerns Assessment Noted Time PHQ-9 Depression Total Score: 2 08/08/2012 9:30 PM ORGANIZATIONAL EFFECTIVENESS DIRECTOR documented as of this encounter
--- OUTSIDE RECORDS SUMMARY | 2022-01-16 18:20 | XMS_ITS | Encounter Summary ---
:1990 Author Organization [facility] Address [address] [place] [address] Care Team Providers Name Role Phone Unavailable Primary Care Provider Unavailable Reason for Visit Reason Comments Medication Question Encounter Details Date Type Department Care Team Description 06/14/2021 Clinical Department of [place], Medication Communication Cardiovascular Rodrigo Arias, Question Medicine in M.D., Ph.D. [address] [place] [phone] Social History Tobacco Use Types Packs/Day Years [...] er 07/18/2021 How often do you attend faith or mormon services? Never 07/18/2021 Do you belong to any clubs or organizations such as faith N o 07/18/2021 groups, unions, fraternal or [...] place to sleep or slept in a intermediate (including now)? Education Answer Date Recorded What is the highest level of school you have GED or equivale nt 05/20/2021 completed or the highest degree you have received? 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 - 06/14/2021 3:31 PM CST Other ?? Goal or summary: Call placed to MR. Rainey as he was calling to review medication instructions for his upcoming ablation 07/07/2021. Detailed message left on his voice mail that included that he is to reduce the Metoprolol dosing by half on 06/29/2021 and stop it on 07/03/2021 and stop the Corlanor on07/04/2021. Contact information left if he has any further questions or concerns. ICAL EDUCATION MANAGER Telephone Encounter - Sameera Luong - 06/14/2021 3:04 PM CST SUBJECTIVE CHIEF COMPLAINT / REASON FOR CALL Medication Question Name of caller: Mr. Luisito Rainey (patient) Patient expects communication via portal: No Phone number: [phone] (he may be at work and unable to answer, so he asked that a detailed message be left on his voice mail) Procedural/Surgical Question ?? Date and type of procedure/surgery: 07-07-2021/EP Study, SVT Ablation ?? Goal or summary: Please call Mr. Rainey back to answer his question below ?? Medication/dose: metoprolol tartrate/50 mg twice a day ?? Recent change/new symptom/side effect: Doctor Shabana reduced his dose to half of what he was previously taking ?? Medication/dose: Corlanor/ 5m twice a day ?? Comments: Mr. Rainey had a phone visit with Doctor Donald on 05-25-21 ?? Additional comments: Mr. Rainey is wondering if he needs to cut down his metoprolol any further in preparation for his upcoming procedure. He also wonders if any change is needed for his Corlanor ICAL EDUCATION MANAGER documented in this encounter Plan of Treatment Not on filedocumented as of this encounter Visit Diagnoses Not on filedocumented in this encounter Additional Health Concerns Assessment Noted Time PHQ-9 Depression Total Score: 11 09/09/2015 4:10 PM CD T documented as of this encounter
--- OUTSIDE RECORDS SUMMARY | 2022-01-16 18:20 | XMS_ITS | Encounter Summary ---
:1990 Author Organization [facility] Address [address] [place] [id number] Care Team Providers Name Role Phone Elsewhere, Pcp Primary Care Provider Unavailable Reason for Referral Outpatient (Routine) - Closed Specialty Diagnoses / Procedures Referred By Contact Refer red To Contact Diagnoses Tachycardia Supraventricular (HCC) Rodrigo Gray [facility] Procedures Echo Transthoracic (TTE) Karley, Ph.D. [address] [place] [phone] Referral ID Status Reason Start Date Expiration Date Visits Requ ested Visits Authorized [id number] Closed 05/26/2021 05/26/2022 1 1 GER LABORATORY Reason for Visit Outpatient (Routine) - Closed Specialty Diagnoses / Procedures Referred By Contact Refer red To Contact Diagnoses Tachycardia Supraventricular (HCC) Rodrigo Gray [facility] Procedures Echo Transthoracic (TTE) Karley, Ph.D. [address] [place] [phone] Referral ID Status Reason Start Date Expiration Date Visits Requ ested Visits Authorized [id number] Closed 05/26/2021 05/26/2022 1 1 Encounter Details Date Type Department Care Team Description 07/06/2021 Hospital Department of [place], Tachycardia Encounter Cardiovascular Rodrigo Arias Supraventr icular (HCC) Diseases in Karley, Ph.D. [place], [place] 200 [facility] 200 [place] [phone] Social History Tobacco Use Types Packs/Day Years [...] er 07/18/2021 How often do you attend jew or mandaen services? 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 tablet LORazepam (ATIVAN) 1 Take 1 tablet by mouth 0 mg tablet as needed. melatonin 10 mg Take 10 mg by mouth at 0 03/01/20 21 tablet bedtime. [id number] Take 1 tablet by mouth 0 -minerals [...] Name Priority Date/Time Associated Diagnosis Comme nts (TTE) 2D ECHO Routine 07/06/2021 8:49 Tachycardia Results for this DOPPLER COLOR AM MANAGER LABORATORY Supraventricular (HCC) proc edure are in the results section. documented in this encounter Results (TTE) 2D ECHO DOPPLER COLOR (07/06/2021 8:49 AM MANAGER LABORATORY) Patholo gist Method Time Signature Ejection Fraction 55 MC CV EIMS Sinus of Valsalva 34 MC CV EIMS Sinotubular Junction 29 MC CV EIM S Mid-Ascending Aorta 31 MC CV EIMS LV Mass Index 78 MC CV EIMS LV End-Diastolic 47 MC CV EIMS Diameter LV End-Systolic 33 MC CV EIMS Diameter LV End-Diastolic 121 MC CV EIMS Volume LV End-Systolic 54 MC CV EIMS Volume MV E Velocity 0.50 MC CV EIMS MV A Velocity 0.30 MC CV EIMS MV E/A 1.67 MC CV EIMS MV e' Velocity 0.09 MC CV EIMS Medial MV e' Velocity 0.13 MC CV EIMS Lateral MV E/e' Medial 5.60 MC CV EIMS MV E/e' Lateral 3.80 MC CV EIMS Left ventricular 45 MC CV EIMS stroke volume index Cardiac Output 6.41 MC CV EIMS Cardiac Index 3.27 MC CV EIMS LV Interventricular 10 MC CV EIMS Septal Wall Thickness LV Posterior Wall 9 MC CV EIMS Thickness LV Relative Wall 38 MC CV EIMS Thickness Tricuspid Annular S? 0.12 MC CV EIMS TR Vmax 2.03 MC CV EIMS RA Pressure 5 MC CV EIMS RV Systolic Pressure 21 MC CV EIM S Estimated diastolic 8 MC CV EIMS pulmonary artery pressure AV mean gradient 4 MC CV EIMS Aortic valve area 3.66 MC CV EIMS Aortic Valve 0.81 MC CV EIMS Dimensionless Index LA Volume Index 23 MC CV EIMS Anatomical Region Laterality Modality Echocardiography Specimen (Source) Anatomical Collection Method Collection Time Re ceived Time Location / / Volume Laterality 07/06/2021 7:40 AM MANAGER LABORATORY Impressions 07/06/2021 2:57 PM MANAGER LABORATORY LEFT VENTRICLE:Normal left ventricular chamber size. Normal left ventricular wall thickness. Calculated 2-D biplane volumetric left ventricular ejection fraction 55%. No regional wall motion abnormaliti es. Normal left ventricular diastolic fu nction. RIGHT VENTRICLE:Normal right ventricular chamber size. Normal right ventricular systolic function. Estimated right ventricular systolic pressure 21 mmHg (right atrial pressure of 5 mmHg). ATRIA:Normal left atrial size. Left atri al volume index 23 ml/m2. Normal right atrial size. CARDIAC VALVES:Trileaflet aortic valve. Normal aortic valve. No aortic valve regurgitation. Normal mitral valve. Trivial mitral valve regurgitation. Normal pulmonary valve. Normal pulmonary valve systolic velocities. Trivial pulmonary valve regurgitation. Normal tricuspid valve. T rivial tricuspid valve regurgitation. OTHER ECHO FINDINGS:Normal inferior vena cava size with normal inspiratory collapse (>50%). Normal sinus of Valsalva diameter (diameter 34 mm); upper limit of normal 38 mm. Normal mid ascending aorta diameter (diameter 31 mm at mid level); upper limit of normal 34 mm. No abdominal aortic aneury sm. Normal abdominal aorta Doppler flow pattern. No atrial level shunt by color flow imaging. No ??pericardial effusion. For the complete report, see the [employer] Documents. Narrative 07/06/2021 2:57 PM MANAGER LABORATORY For the complete report, see the Order-Level Documents. Final Impressions 1. Normal left ventricular chamber size. No regional motion abnormalities. Low normal systolic function; calculated ejection fraction 55%. 2. Left ventricular cardiac index 3.27 l /min/m2. 3. Normal left ventricular diastolic fun ction. 4. Normal right ventricular chamber size and systolic function. Estimated right ventricular systolic pressure 21 mmHg. 5. No ??significant valvular heart disea se. 6. Normal left atrial size; normal right atrial size. 7. Normal inferior vena cava size with n ormal inspiratory collapse (>50%). 8. No ??pericardial effusion. Procedure Note Ramesh Stafford M.D. - 07/06/2021For matting of this note might be different from the original. For the complete report, see the [employer] Documents. Final Impressions 1. Normal left ventricular chamber size. No regional motion abnormalities. Low normal systolic function; calculated ejection fraction 55%. 2. Left ventricular cardiac index 3.27 l /min/m2. 3. Normal left ventricular diastolic fun ction. 4. Normal right ventricular chamber size and systolic function. Estimated right ventricular systolic pressure 21 mmHg. 5. No significant valvular heart disease . 6. Normal left atrial size; normal right atrial size. 7. Normal inferior vena cava size with n ormal inspiratory collapse (>50%). 8. No pericardial effusion. Findings LEFT VENTRICLE:Normal left ventricular c hamber size. Normal left ventricular wall thickness. Calculated 2-D biplane volumetric left ventricular ejection fraction 55%. No regional wall motion abnormalities. Normal left ventricular diastolic function. RIGHT VENTRICLE:Normal right ventricular chamber size. Normal right ventricular systolic function. Estimated right ventricular systolic pressure 21 mmHg (right atrial pressure of 5 mmHg). ATRIA:Normal left atrial size. Left atri al volume index 23 ml/m2. Normal right atrial size. CARDIAC VALVES:Trileaflet aortic valve. Normal aortic valve. No aortic valve regurgitation. Normal mitral valve. Trivial mitral valve regurgitation. Normal pulmonary valve. Normal pulmonary valve systolic velocities. Trivial pulmonary valve regu rgitation. Normal tricuspid valve. Trivial tricuspid valve regurgitation. OTHER ECHO FINDINGS:Normal inferior vena cava size with normal inspiratory collapse (>50%). Normal sinus of Valsalva diameter (diameter 34 mm); upper limit of normal 38 mm. Normal mid ascending aorta diameter (diameter 31 mm at mid level); upper limit of normal 34 mm. No abdominal aortic aneurysm. Normal abdominal aorta Doppler flow pattern. No atrial level shunt by color flow imaging. No pericardial effusion. For the complete report, see the [employer] Documents. Rodrigo Gray M.D., Ph.D. CV ECHO PROCEDURES documented in this encounter Visit Diagnoses Diagnosis Tachycardia Supraventricular (HCC) documented in this encounter Additional Health Concerns Infection Onset Date Last Indicated Resolved Time COVID19 Pending 07/06/2021 07/06/2021 07/06/2021 5:05 PM MANAGER LABORATORY Assessment Noted Time PHQ-9 Depression Total Score: 11 09/09/2015 4:10 PM CD T documented as of this encounter Care Teams Private Equity Analyst Relationship Specialty Start Date End Date Elsewhere, Pcp PCP - General Internal Medicine 07/04/21 documented as of this encounter
--- OUTSIDE RECORDS SUMMARY | 2022-01-16 18:20 | XMS_ITS | Encounter Summary ---
:1990 Author Organization [facility] Address [address] [place] [address] Care Team Providers Name Role Phone Unavailable Primary Care Provider Unavailable Reason for Visit Reason Comments Self Referral Communication Encounter Details Date Type Department Care Team Description 04/07/2021 Clinical Department of Manager Stone Self Referral Communication Cardiovascular , Karley Mills (Communicati on) Medicine in [place], [place] [address] [place] [address] Social History Tobacco Use Types Packs/Day Years [...] er 07/18/2021 How often do you attend mandaen or catholic services? Never 07/18/2021 Do you belong to any clubs or organizations such as mandaen N o 07/18/2021 groups, unions, fraternal or [...] place to sleep or slept in a chcf (including now)? 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 Requesting Dr. Gray. Updated CE. Can you please let us know the urgency of this request? Thank you, Anny REACTOR OPERATOR HEAD Telephone Encounter - Lacy Palencia - 04/07/2021 2:46 PM CDT RAFFY PAR will let us know when we are okay to schedule. Telephone Encounter - Winston Mckeon R.N. - 04/07/2021 9:42 AM CDT Images from the original note were not included. [facility] Heart Rhythm Services' Nurse Chart Review: INDICATION: Luisito Rainey is a 30 y.o. male self referral for evaluation and treatment of SVT. SYMPTOMS & DURATION:He has a long history of palpitations. He is s/p AVNRT ablation in 2019 and subsequent EP study that showed no inducible arrhythmias. He was in the ER on 03/19/2021 with palpitations. He is feeling his rapid heart rate off and on. 01/06/21 HISTORY:Luisito Rainey has a history of anxiety, depression, chemical dependency (alcohol and benzodiazepine) and PSVT with prior cardiac ablation procedure who presents for evaluation of palpitationsand left leg tingling. Chronic daily rapid palpitations with chest pain, but without syncope and smart device recording of SVT and sinus tach with rate approximately 160. Most Recent Completed Testing: ??? ECG from 03/02/2021: ??? Holter/Supervisor Painting Department from 11/13/2020: ??? CXR from 02/19/21: ??? 05/26/2019 Ablation for AVNRT 12-lead surface electrocardiogram and intracardiac electrograms were displayed in real time and recorded. ??A comprehensive electrophysiology??study was performed which included pacing and recording from the atrium, HIS bundle electrogram recording, and pacing and recording from the ventricle. ??The et iology of the arrhythmia was determined with the use of intracardiac electrogram analysis and Carto for 3D mapping. ??The decision was made to proceed with catheter based ablation. At the end of the procedure, all catheters were removed. ??The patient was transported in stable condition to the recovery area for further monitoring and sheath removal. Procedure Comments: NSR was present at baseline. ?? EP testing revealed the presence of dual AV neville physiology with single atrial extrastimuli. ??In the baseline state, AVNRT was not inducible. ??However, with dobutamine at 4mcg tachycardia was easilyinducible with either atrial pacing or single atrial extrastimuli. This revealed the presence of dual atrioventricular neville physiology with single atrial extrastimuli. ??Single atrioventricular neville echoes were observed at S2 intervals of??300ms down to the atrioventricular node slow pathway effective refractory period. ??In the baseline state, atrioventricular neville reentrant tachycardia was not inducible with atrial extrastimuli or with decremental pacing. ??With the addition of isuprel up to 4mcg/min (with induced sinus tachycardia of 145-150bpm) sustained atrioventricular neville reentrant tachycardia was not inducible with atrial extrastimulia or decremental pacing. However, multiple AVnode echo beats (up to 11) were readily inducible. 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 ??Empiric ablation of the AVnode slow pathway was felt to be reasonable and likely to eliminate further tachycardia. Carto was used for mapping of the slow pathway. Ablation was performed in the posterior triangle of fry. ??During ablation, accelerated junctional rhythm was observed. ??Ablation was performed from the tricuspid valve annulus to the anterior coronary sinus ostium until no further junctional rhythm was observed. ?? After a wait period and with the addition of isuprel there was no inducible atrioventricular node tachycardia, and only single AVnode echo beats were observed. Off isuprel, no Avnode echobeats were observed. Electrophysiology Study Data Basic Intervals Study State Underlying Rhythm Cycle Length WA PA AH HV QRS Justice QRS Morphology Baseline NSR 781 161 ?? 37 ?? Post Ablation Isuprel NSR 485 133 ? Antegrade 1:1 AV Node Function Study State Pacing Site AV Node SCL 1:1 AH HV Dual AVN Physiology? AVN Fast 1:1 AVN Slow 1:1 Wenkebach Cycle Length Baseline CS 380 ?360 Refractory Periods Study State Pacing Site Paced Cycle Length Paced Cycle ERP AVN ERP Dual Node Physiology? AVN ERP (fast) AVN ERP (slow) Baseline CS 600 ??290 Yes 300 ?? Post Ablation CS??600 ??230 Yes 250 ?? Post Ablation Isuprel CS 600 ??270 Yes 280 ?? Retrograde 1:1 AV Node Function Study State Pacing Site AV Node SCL 1:1 Dual AVN Physiology? AVN Fast 1:1 AVN Slow 1:1 Wenkebach Cycle Length No VA Conduction? Midline Activation? Baseline RVA 360 ?340 ?? Study Events ?340 ?? Refractory Periods Study State Pacing Site Paced Cycle Length Paced Cycle ERP AVN ERP Dual Node Physiology? AVN ERP (fast) AVN ERP (slow) Baseline RVA 600 220 ? Study Events Ventricular??600 220 ? Arrhythmias Study State Arrhythmia Type Arrhythmia Cycle Length Induction Method Isuprel ? Ablation Data AVNRT Energy Source Ablation Catheter Used Rhythm During Ablation # of Attempts Max Hughes Max Temp. Result RF EZ Steer ThermoCool, 3.5mm ST SF NON JOSEFINA NSR 10 30 23 Success The slow AV neville pathway was mapped and ablated. Comments: total ablation time: 337seconds Catheter Use Catheter Type Catheter Description Insertion Site Intracardiac Site Sheath Size Sheath Type Sheath Description Diagnostic/Map DecaNav F-Curve Decapolar 2-8-2 spacing Right Femoral Vein CS 7 Fr Guide Sidearm Diagnostic Octapolar, D curve, 2 mm Std Deflectable Cath Right Femoral Vein HBE 8.0 Standard Sidearm Ablation EZ STEER Thermocool SF JOSEFINA, 3.5mm tip, Thermocouple, D-F curve Right Femoral Vein Map/Abl 8F Standard Sidearm Complications ? No complications Procedure(s) Performed ? Programmed stimulation after drug Infusion (e.g.,Isoproteronol) ? SVT Ablation ? CS/LA Catheter pace/recording ? 3D Mapping Auxiliary Device Mapping System 1: Carto Procedure Detail Estimated Blood Loss: < 50 ml Specimen Collected: None Level of Sedation Achieved: See Anesthesia Note Total Flouro Time: 0 COMMUNITY FACILITATOR Total Flouro Dose: 0 mGy ??? EP Study 12/13/2020- Consent & Phoenix Protocol Phoenix protocol was followed. ??TIME OUT conducted just prior to starting procedure confirmed patient identity, site/side, procedure, patient position, and availability of correct equipment and implants (if applicable). The risks, benefits, and alternatives of the procedure were discussed with the patient and written informed consent was obtained. Procedure Description The patient presented to the EP lab in sinus rhythm. ??After informed consent was affirmed, the patient was prepped/draped in sterile fashion. ??Local anesthetic was administered in the right groin andtwo 7F and one 8F sheath were introduced into the right femoral vein over guidewires with ultrasoundguidance. ??A 10-pole CS catheter was advanced into the coronary sinus and a quadripolar catheter was advanced to the RV apex. ??A his catheter was advanced to the anteroseptal His location. Baseline intervals were normal including the HV interval. Antegrade and retrograde AV conduction limits were identified. ??There was no evidence of antegrade dual AV neville physiology and no typical or atypical echo beats. ??Retrograde VA conduction was concentric and decremental. There were no inducible arrhythmias with aggressive programmed stimulation on escalating doses of isoproterenol and with weaning anesthesia. We also used atropine. Adenosine demonstrated AV block without pre-excitation. There was normal conduction, and there were no inducible arrhythmias. The procedure was terminated. Catheters and sheaths were removed, and manual pressure held to attain hemostasis. Electrophysiology Study Data Basic Intervals Study State Underlying Rhythm Cycle Length WA PA AH HV QRS Justice QRS Morphology Baseline NSR 688 129 ?? 41 ?? Antegrade 1:1 AV Node Function Study State Pacing Site AV Node SCL 1:1 AH HV Dual AVN Physiology? AVN Fast 1:1 AVN Slow 1:1 Wenkebach Cycle Length Baseline CS 350 ?340 Isuprel CS 230 ?220 Refractory Periods Study State Pacing Site Paced Cycle Length Paced Cycle ERP AVN ERP Dual Node Physiology? AVN ERP (fast) AVN ERP (slow) Baseline CS 600 ??250 ? Isuprel CS 400 ??220/210 ? Retrograde 1:1 AV Node Function Study State Pacing Site AV Node SCL 1:1 Dual AVN Physiology? AVN Fast 1:1 AVN Slow 1:1 Wenkebach Cycle Length No VA Conduction? Midline Activation? Baseline RVA 270 ?260 ?? Study Events ?260 ?? Refractory Periods Study State Pacing Site Paced Cycle Length Paced Cycle ERP AVN ERP Dual Node Physiology? AVN ERP (fast) AVN ERP (slow) Baseline RVA 600 ??310 ? Isuprel RVA 400 ??220/240 ? Electrophysiology Procedure Results AV NODE * The AV node conduction is normal. HIS/PURKINJE SYSTEM * The His/Purkinje system conduction is normal. SINUS NODE * The sinus node conduction is normal. Catheter Use Catheter Type Catheter Description Insertion Site Intracardiac Site Sheath Size Sheath Type Sheath Description Diagnostic Octapolar, D curve, 2 mm Std Deflectable Cath Right Femoral Vein HBE 8 Fr Standard Sidearm Diagnostic Quadrapolar, D-curve, 2-5-2 mm spacing Right Femoral Vein RVA 7 Fr Standard Sidearm Diagnostic/Map DecaNav D-Curve Decapolar 2-8-2 spacing Right Femoral Vein CS 7 Fr Standard Sidearm ??? Labs from 03/19/21: o Creatinine:0.79 o Potassium:4 o Sodium:139 o TSH: o Hgb:16.2 o Other Pertinent Labs: ??? Other Cardiac Testing from No results found for this or any previous visit (from the past 72 hour(s)). Trialed Antiarrhythmics: Metoprolol 50 BID, He was previously on Nadolol and Corlanor/Ivabradine (5 mg twice daily), but since admission to [facility] recently the beta-terrence therapy will switched to Metoprolol tartrate 25 mg twice daily. Problem List: Patient Active Problem List Diagnosis ??? Depression Major Cardioversion History: Cardiac Procedures/Surgery: Surgical History: No past surgical history on file. Family History: Family History Problem Relation Age of Onset ??? Anxiety disorder Mother ??? Depression Mother ??? Alcohol abuse Mother No current outpatient medications on file. ORDERS PLACED:FTF HRS consult with standard testing ADDITIONAL RECORDS REQUESTED: (via P RST [facility] HRS) Information for record review was gathered, copied, and edited from multiple sources including Care Everywhere and outside records received to complete this assessment. Telephone Encounter - Jessica Mcgarry - 04/07/2021 9:34 AM CDT From: Yee Shields On: 04/03/2021 09:51 AM To: [facility] ([place]) Priority: Routine Routing Comments: ??Have they had a previous ablation or cardioversion? Yes ??What antiarrhythmics have you triedin the past and what are you currently on? Corlanor 5mg bid, metoprolol 50mg bid ??Where is the referral coming from? self Do you have an implanted cardiac device? What is your goal for the visit? second opinion What is patients DX? SVT documented in this encounter Plan of Treatment Not on filedocumented as of this encounter Visit Diagnoses Not on filedocumented in this encounter Additional Health Concerns Assessment Noted Time PHQ-9 Depression Total Score: 11 09/09/2015 4:10 PM CD T documented as of this encounter
--- OUTSIDE RECORDS SUMMARY | 2022-01-16 18:20 | XMS_ITS | Encounter Summary ---
:1990 Author Organization [facility] Address [address] [place] [address] Care Team Providers Name Role Phone Elsewhere, Pcp Primary Care Provider Unavailable Encounter Details Date Type Department Care Team Description 07/06/2021 Hospital Department of [place], Tachycardia Encounter Radiology, [place] Rodrigo Arias Supravent ricular (HCC) dakota Daniel M.D., Ph.D. [place], [address] [place] [address] [place] [phone] [place], [place] [phone] (Work) [phone] Social History Tobacco Use Types Packs/Day Years [...] er 07/18/2021 How often do you attend sabianist or rastafarian services? Never 07/18/2021 Do you belong to any clubs or organizations such as sabianist N o 07/18/2021 groups, unions, fraternal or [...] place to sleep or slept in a detention (including now)? Education Answer Date Recorded What is the highest level of school you have GED or equivale nt 05/20/2021 completed or the highest degree you have received? 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 [id number] Take 1 tablet by mouth 0 -minerals [...] Name Priority Date/Time Associated Diagnosis Comme nts DX CHEST AP OR RAD - Routine 07/06/2021 Tachycardia Results for PA AND LATERAL 2 (most inpatients 10:50 AM ENVIRONMENTAL ENGINEERING ASSISTANT Supraventricular (HC C) this procedure VIEWS and all are in the outpatients) results section. documented in this encounter Results DX Chest AP or PA and Lateral 2 Views (07/06/2021 10:50 AM ENVIRONMENTAL ENGINEERING ASSISTANT) Anatomical Region Laterality Modality Chest, Thoracic RST LOS, Thoracic ARZ LOS, Thoracic N/A Digital Radiography FLA LOS Specimen (Source) Anatomical Collection Method Collection Time Re ceived Time Location / / Volume Laterality 07/06/2021 10:52 AM ENVIRONMENTAL ENGINEERING ASSISTANT Impressions 07/06/2021 11:36 AM ENVIRONMENTAL ENGINEERING ASSISTANT No change since 02/19/2021. Negative leslie [facility]. ?? Narrative 07/06/2021 11:36 AM ENVIRONMENTAL ENGINEERING ASSISTANT EXAM: ??DX CHEST AP OR PA AND LATERAL 2 VIEWS Procedure Note Gato Conway M.D. - 07/06/2021Formatt ing of this note might be different from the original. EXAM: DX CHEST AP OR PA AND LATERAL 2 EWS IMPRESSION: No change since 02/19/2021. Negative leslie st. Rodrigo Gray M.D., Ph.D. IMG DIAGNOSTIC SANDHYA GING PROCEDURES documented in this encounter Visit Diagnoses Diagnosis Tachycardia Supraventricular (HCC) documented in this encounter Additional Health Concerns Infection Onset Date Last Indicated Resolved Time COVID19 Pending 07/06/2021 07/06/2021 07/06/2021 5:05 PM ENVIRONMENTAL ENGINEERING ASSISTANT Assessment Noted Time PHQ-9 Depression Total Score: 11 09/09/2015 4:10 PM CD T documented as of this encounter Care Teams Chief Information Security Officer Relationship Specialty Start Date End Date Elsewhere, Pcp PCP - General Internal Medicine 07/04/21 documented as of this encounter
--- OUTSIDE RECORDS SUMMARY | 2022-01-16 18:20 | XMS_ITS | Encounter Summary ---
:1990 Author Organization [facility] Address [address] [place] [address] Care Team Providers Name Role Phone Unavailable Primary Care Provider Unavailable Reason for Visit Reason Comments Appointment medication questions pre pro cedure Encounter Details Date Type Department Care Team Description 06/20/2021 Clinical Department of Tailer Off Appointment Communication Cardiovascular , [place] (medication Medicine in [facility] pre [place] procedure) [address] [place] [address] Social History Tobacco Use Types Packs/Day Years [...] er 07/18/2021 How often do you attend pentecostalism or mosque services? Never 07/18/2021 Do you belong to any clubs or organizations such as pentecostalism N o 07/18/2021 groups, unions, fraternal or [...] at Date Recorded Male 06/01/2020 11:57 AM STRATEGIC BUYER documented as of this encounter Miscellaneous Notes Telephone Encounter - Alba Valdez R.N. - 06/22/2021 8:41 AM STRATEGIC BUYER INFORMATION DISCUSSED Called Mr Rainey to let him know Dr. Donald was okay with him stopping his Colander along with hisMetoprolol. Patient was okay with this and will stop taking both medications. PLAN Disposition/Recommendation: self-care is appropriate at this time, patient encouraged to call back with questions Education: patient/caller able to teach back Caller agreeable to plan of care: yes The following references were used: nursing clinical judgement TEGIC BUYER Telephone Encounter - Alba Valdez R.N. - 06/21/2021 2:39 PM STRATEGIC BUYER SUBJECTIVE Patient would like to know if he is to stop taking Corlanor also with the Metoprolol. He agreed to stop taking the 50 mg of metoprolol. But would like advise as to continue or stop the Corlanor. CHIEF COMPLAINT / REASON FOR CALL Appointment (medication questions pre procedure) Name of caller/relationship to the patient: Luisito Patient expects communication via portal: No Phone number: [phone] Request topic and what needs to be addressed? Medication Management ?? Goal or summary: stop or continue taking Corlanor ?? Medication/dose: Corlanor? ?? Additional comments: wanting recommendations. TEGIC BUYER Telephone Encounter - Princess Macias M.S.N. R.N. - 06/21/2021 11:14 AM STRATEGIC BUYER Rodrigo Donald M.D., Ph.D. You 17 hours ago (5:27 PM) He can come off metoprolol completely Message text INFORMATION DISCUSSED Attempted to contact Mr. Rainey regarding Dr. Donald's recommendations. He was not available, but per patient request a detailed voicemail message was left with instructions to completely come off metoprolol per Dr. Donald. He was encouraged to call the HRS nurse line with any questions and/or concerns. PLAN Follow Dr. Donald's recommendations. Disposition/Recommendation: recommended continue engagement in self-management activities Education: not applicable Caller agreeable to plan of care: no N/A The following references were used: provider Dr. Donald TEGIC BUYER Telephone Encounter - Yee Shields - 06/20/2021 4:58 PM STRATEGIC BUYER SUBJECTIVE CHIEF COMPLAINT / REASON FOR CALL Appointment (medication questions pre procedure) Luisito wants to his medication more to increase the episodes so that he can have the ablation. He is also looking for more clarification on exactly how much to decrease and when to decrease. He states his instruction say to decrease by percentages vs exactly how much. He gives the ok for a detailed voice mail and portal communication Patient Appointment Services Specialist Division of Cardiovascular Diseases [address] [address] [email or web address] P RST CVD DEVICE SCHEDULING P RST CVD HRS SCHEDULING TEGIC BUYER documented in this encounter Plan of Treatment Not on filedocumented as of this encounter Visit Diagnoses Not on filedocumented in this encounter Additional Health Concerns Assessment Noted Time PHQ-9 Depression Total Score: 11 09/09/2015 4:10 PM CD T documented as of this encounter
--- OUTSIDE RECORDS SUMMARY | 2022-01-16 18:20 | XMS_ITS | Encounter Summary ---
:1990 Author Organization [facility] Address [address] [place] [address] Care Team Providers Name Role Phone Elsewhere, Pcp Primary Care Provider Unavailable Encounter Details Date Type Department Care Team Description 07/06/2021 Hospital Department of [place], Tachycardia Encounter Laboratory Rodrigo Arias Supraventric ulflorencia ([facility]) Medicine and MPeace, Ph.D. Pathology, [place] [address] [place] [address] in [facility] [phone] [place] [phone] [place] [address] (Work) [place] [address] Social History Tobacco Use Types Packs/Day Years [...] How often do you attend sikh or sabianism services? 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 [id number] Take 1 tablet by mouth 0 -minerals [...] Name Priority Date/Time Associated Diagnosis Comme nts CBC WITHOUT Routine 07/06/2021 11:10 Tachycardia Results for this DIFFERENTIAL, B AM AUDIO OPERATOR Supraventricular (HCC) pr ocedure are in the results section. TYPE AND SCREEN Routine 07/06/2021 11:10 Tachycardia Results for this AM AUDIO OPERATOR Supraventricular (HCC) proce dure are in the results section. BASIC METABOLIC Routine 07/06/2021 11:09 Tachycardia Results for this PANEL, S/P AM AUDIO OPERATOR Supraventricular (HCC) proce dure are in the results section. documented in this encounter Results Type and Screen (with reflex Antibody ID) (07/06/2021 11:10 AM AUDIO OPERATOR) [facility] Btarget Method Time Signature ABORh A Pos Not 07/06/2021 ETRM applicable 12:04 PM AUDIO OPERATOR Antibody Negative Negative 07/06/2021 ETRM Screen 12:15 PM AUDIO OPERATOR Type & Screen 07/09/2021 07/06/2021 ETRM Expiration 23:59 12:04 PM AUDIO OPERATOR Testing [place] DEFAULT 07/06/2021 ETRM Location 11:28 AM AUDIO OPERATOR Specimen Anatomical Collection Method Collection Time Receive d Time (Source) Location / / Volume Laterality Blood (Blood, 07/06/2021 11:10 07/06/2021 Venous) AM AUDIO OPERATOR 11:28 AM AUDIO OPERATOR Rodrigo Gray M.D., Ph.D. LAB BLOOD BANK ANGELLA T ORDERABLES Performing Organization Address City/State/ZIP Code Phon e Number [facility] - [address] [place], [place] [address] [facility] [place] [address] [facility] [address] [facility] (ABNORMAL) CBC without Differential (07/06/2021 11:10 AM AUDIO OPERATOR) [facility] Btarget Method Time Signature Hemoglobin 16.2 13.2 - 07/06/2021 DTL 16.6 g/dL 11:53 AM AUDIO OPERATOR Hematocrit 48.5 38.3 - 07/06/2021 DTL 48.6 % 11:53 AM AUDIO OPERATOR Erythrocytes 5.49 4.35 - 07/06/2021 DTL 5.65 11:53 AM AUDIO OPERATOR x10(12)/L MCV 88.3 78.2 - 07/06/2021 DTL 97.9 fL 11:53 AM AUDIO OPERATOR RBC Distrib Width 12.1 11.8 - 07/06/2021 DTL 14.5 % 11:53 AM AUDIO OPERATOR Platelet Count 236 135 - 317 07/06/2021 DTL x10(9)/L 11:53 AM AUDIO OPERATOR Leukocytes 9.9 (H) 3.4 - 9.6 07/06/2021 DTL x10(9)/L 11:53 AM AUDIO OPERATOR Specimen Anatomical Collection Method Collection Time Receive d Time (Source) Location / / Volume Laterality Blood (Blood, 07/06/2021 11:10 07/06/2021 Venous) AM AUDIO OPERATOR 11:45 AM AUDIO OPERATOR Rodrigo Gray M.D., Ph.D. LAB BLOOD ADD-ON Performing Organization Address City/State/ZIP Code Phon e Number [facility] - [address] [place], [place] [address] [facility] [place] [address] [facility] [address] [facility] Basic Metabolic Panel (07/06/2021 11:09 AM AUDIO OPERATOR) P athologist Signature Potassium, S 4.7 3.6 - 5.2 07/06/2021 DTL mmol/L 12:20 PM AUDIO OPERATOR Sodium, S 143 135 - 145 07/06/2021 DTL mmol/L 12:20 PM AUDIO OPERATOR Chloride, S 103 98 - 107 07/06/2021 DTL mmol/L 12:20 PM AUDIO OPERATOR Bicarbonate, S 28 22 - 29 07/06/2021 DTL mmol/L 12:20 PM AUDIO OPERATOR Anion Gap 12 7 - 15 07/06/2021 DTL 12:20 PM AUDIO OPERATOR BUN (Blood Urea 8 8 - 24 07/06/2021 DTL Nitrogen), S mg/dL 12:20 PM AUDIO OPERATOR Creatinine, S 0.98 0.74 - 1.35 07/06/2021 DTL mg/dL 12:20 PM AUDIO OPERATOR eGFR-Non >90 >=60 07/06/2021 DTL Black/ mL/min/BSA 12:20 PM AUDIO OPERATOR [place] Comment: ----ADDITIONAL INFORMATION---- Estimated GFR calculated using the 2009 CKD_EPI creatinine equation. eGFR-Black/ >90 >=60 mL/min/BSA 2021 12:20 PM AUDIO OPERATOR DTL Comment: ----ADDITIONAL INFORMATION---- Estimated GFR calculated using the 2009 CKD_EPI creatinine equation. Calcium, Total, S 9.7 8.6 - 10.0 mg/dL 07/06/2021 12:2 0 PM AUDIO OPERATOR DTL Glucose, S 99 70 - 140 mg/dL 07/06/2021 12:20 PM AUDIO OPERATOR DTL Specimen Anatomical Collection Method Collection Time Receive d Time (Source) Location / / Volume Laterality Blood (Blood, 07/06/2021 11:09 07/06/2021 Venous) AM AUDIO OPERATOR 11:56 AM AUDIO OPERATOR Rodrigo Gray M.D., Ph.D. LAB BLOOD ADD-ON Performing Organization Address City/State/ZIP Code Phon e Number [facility] - [address] [place], [place] [address] [facility] [place] [address] [facility] [address] documented in this encounter Visit Diagnoses Diagnosis Tachycardia Supraventricular (HCC) documented in this encounter Additional Health Concerns Infection Onset Date Last Indicated Resolved Time COVID19 Pending 07/06/2021 07/06/2021 07/06/2021 5:05 PM AUDIO OPERATOR Assessment Noted Time PHQ-9 Depression Total Score: 11 09/09/2015 4:10 PM CD T documented as of this encounter Care Teams Hand Packer/Packager Relationship Specialty Start Date End Date Elsewhere, Pcp PCP - General Internal Medicine 07/04/21 documented as of this encounter
--- OUTSIDE RECORDS SUMMARY | 2022-01-16 18:20 | XMS_ITS | Encounter Summary ---
:1990 Author Organization [facility] Address [address] [place] [address] Care Team Providers Name Role Phone Unavailable Primary Care Provider Unavailable Reason for Visit Appointment Request (Routine) - Closed Specialty Diagnoses / Procedures Referred By Referred To Contact Contact Cardiovascular Disease Diagnoses Tachycardia Supraventricular (HCC) Referral ID Status Reason Start Date Expiration Date Visits Requ ested Visits Authorized [id number] Closed 04/03/2021 04/03/2022 1 1 Encounter Details Date Type Department Care Team Description 05/25/2021 Virtual Visit Department of Marina, Tachycardia Cardiovascular Rodrigo Arias, Supraventr icular ([facility]) Medicine in M.D., Ph.D. (Primary Dx) [place], [place] [address] [facility] [address] [place] [address] [phone] Social History Tobacco Use Types Packs/Day Years [...] er 07/18/2021 How often do you attend yarsani or buddhist services? Never 07/18/2021 Do you belong to any clubs or organizations such as yarsani N o 07/18/2021 groups, unions, fraternal or [...] or slept in a assisted (including now)? Education Answer Date Recorded What is the highest level of school you have GED or equivale nt 05/20/2021 completed or the highest degree you have received? 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 - 05/25/2021 3:00 PM CST SUBJECTIVE REASON FOR CONSULT SVT. HISTORY OF PRESENT ILLNESS This is a ioz-dqth-tj-face visit done in the setting of [place] [address] according to [place] institutional guidelines. This was done via telephone call with Mr. Rainey. Mr. Rainey is a delightful 30-year-old gentleman self-referred for recurrent SVT. Of note, he has a longstanding history of palpitations. He was last seen in our HRS Department by Dr. Michelle Morton. The patient had empiric slow pathway ablation done in 2019. He has also had a subsequentEP study done earlier this summer which showed no inducible arrhythmias. He has had several emergency department visits because of the palpitations. He has been treated up in [place] with Corlanor as well as 75 mg of metoprolol b.i.d. This has caused extreme issues in his life causing him to get , losing his job, etc. He feels miserable. He said these episodes can last anywhere from minutes to as long as 30 minutes. He feels terrible from these, and he is not able to even keep a job given the symptomatology he has. He feels better from arrhythmia standpoint and a heart rate standpoint since he has been on 75 mg of metoprolol twice a day as well as the Corlanor, but he feels extremely terrible on these medicines, and given his age it is completely understandable why he is not tolerating these medicines. He has several strips of data he will send us based on when his metoprolol was at 2 5 mg b.i.d. 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 There is also again a very short regular narrow complex tachycardia where the patient had rapid heart pounding, fluttering heartbeats, skipped heartbeats, shortness of breath, and chest tightness and pain. 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 He has complex medical history with anxiety, depression, chemical dependency with alcohol and benzos. He has not had any syncope but continues to have these rapid daily palpitations with SVT and possibly sinus tach. Most recent ECG shows sinus rhythm with normal ventricular rate. No concerning Q-waves, long QT. There is good R-wave progression. No suggestion of Brugada or long or short QTc. This ECG was done March 02. There are also 2 operative notes that are pasted into the notes. One of these showed that there was no AVNRT inducible, but with dobutamine the tachycardia was easily inducible with atrial pacing as well as single atrial extrastimuli. There was dual AV node physiology noted. 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 The VA during tachycardia was less than 70 msec. Retrograde activation was concentric. Although he did not have sustained AVNRT, given history of recurrent narrow complex tachycardia with dual AV node physiology and easily inducible no nsustained AVNRT, slow pathway ablation was performed. This was done from the tricuspid annulus to the anterior CS os until no further junctional rhythm was noted. There was no inducible AVNRT afterwards and nothing more than a single echo beat noted. There is also a recording of an EP study December 2020. No arrhythmias were induced. He had normal intervals. No evidence of dual AV node physiology was present. Thus, of course, no ablation was performed. I have also reviewed outside recent notes, last one being in April with Dr. Gonzalez. He notes that the patient had no inducible SVT or recovery of the slow pathway. Thus, he has been continued on ivabradine as well as metoprolol. There is note though for some reason he has declined adenosine in the past for palpitations and that there has been no clear documentation of tachycardia other than sinus tach since the last EP study. His most recent echocardiogram showed an EF of 65% to 70% with normalLV size and no significant valvular disease. He did note that he had felt well after the ablation upuntil a few months after the ablation he had recurrences. There is mention that he declined use of adenosine by EMS, and his heart rate gradually slowed and spontaneously without any intervention. Theyfelt that although atrial tachycardia cannot be completely excluded, medical therapy was pursued. They also suggested a second opinion for which he comes to discuss with me. ASSESSMENT / PLAN #1 Symptomatic SVT status post slow pathway ablation #2 Status post redo EP study without inducible tachycardia #3 Preserved ejection fraction I had a long discussion with Mr. Rainey. I did discuss with him that we need to determine if he has inducible tachycardia that could be targeted for ablation. I do think he is well worth getting a repeat EP study, and I discussed with him very clearly that if there is something I can help him with andablate that is targetable, I certainly will. If it is something that is not ablatable such as sinus tachycardia or inappropriate sinus tachycardia, we will not ablate, and he was completely on board with this. I do think we need to have him wean down on the beta blockade as that is certainly too much and causing him significant anxiety and to feel poorly. I will send a 14-day MoMe monitor to see if we capture induction of tachycardia. From what I have seen, again, I cannot put the dates to correlatewith the symptoms of when these tachycardias are noted. 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 In addition, he says things are worse when he is titrated down on the beta terrence, and, thus, I have recommended he decrease to 50 mg twice a day for the next week and after that decrease to 25mg for the week following after that so that we could capture his symptomatology and correlate this to his rhythm. He is agreeable to this plan. I spent a total of 12 minutes on the phone with the patient in discussion. Rodrigo Donald M.D., Ph.D. CT CT Job ID: [id number] CTURAL RIGGER documented in this encounter Plan of Treatment Not on filedocumented as of this encounter Visit Diagnoses Diagnosis Tachycardia Supraventricular (HCC) - [facility] documented in this encounter Additional Health Concerns Assessment Noted Time PHQ-9 Depression Total Score: 11 09/09/2015 4:10 PM CD T documented as of this encounter
--- OUTSIDE RECORDS SUMMARY | 2022-01-16 18:20 | XMS_ITS | Encounter Summary ---
:1990 Author Organization [facility] Address [address] [place] [address] Care Team Providers Name Role Phone Elsewhere, Pcp Primary Care Provider Unavailable Encounter Details Date Type Department Care Team Description 07/04/2021 Clinical Communication Department of Nakul Tsang Cardiovascular Medicine Kilo Johnson in [facility] [phone] [address] [facility] (Work) [place] [address] Social History Tobacco Use Types Packs/Day Years [...] How often do you attend sikh or scientologist services? 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 - 07/04/2021 8:36 AM CST Can we let patient know that - it would be up to him to hold BB or not. I would definitely recommendhe hold it from Sat-Saturday. If we are able to see arrhythmia we will be much better at helping him with mapping and ablation. If he feels terrible, its not unreasonable to take a prn dose ATIENT CLERK documented in this encounter Plan of Treatment Not on filedocumented as of this encounter Visit Diagnoses Not on filedocumented in this encounter Additional Health Concerns Infection Onset Date Last Indicated Resolved Time COVID19 Pending 07/06/2021 07/06/2021 07/06/2021 5:05 PM OUTPATIENT CLERK Assessment Noted Time PHQ-9 Depression Total Score: 11 09/09/2015 4:10 PM CD T documented as of this encounter Care Teams Armhole Presser Relationship Specialty Start Date End Date Elsewhere, Pcp PCP - General Internal Medicine 07/04/21 documented as of this encounter
--- OUTSIDE RECORDS SUMMARY | 2022-01-16 18:20 | XMS_ITS | Encounter Summary ---
:1990 Author Organization [facility] Address [address] [place] [id number] Care Team Providers Name Role Phone Elsewhere, Pcp Primary Care Provider Unavailable Reason for Visit Appointment Request (Routine) - Closed Specialty Diagnoses / Procedures Referred By Referred To Contact Contact Cardiovascular Disease Diagnoses Tachycardia Supraventricular (HCC) Referral ID Status Reason Start Date Expiration Date Visits Requ ested Visits Authorized [id number] Closed 05/26/2021 05/26/2022 1 1 Encounter Details Date Type Department Care Team Description 07/06/2021 Office Visit Department of Mese[facility] Kyle Cardiovascular Medicine AYAKA Parker Supr aventricular (HCC) in [facility] blayne OkeefeNJeremieP., M.S.N. (Primary Dx) [address] [place] [address] [address] [place] [id number] [phone] Social History Tobacco Use Types Packs/Day Years [...] er 07/18/2021 How often do you attend [employer] or buddhist services? Never 07/18/2021 Do you belong to any clubs or organizations such as [employer] N o 07/18/2021 groups, unions, fraternal or [...] at Date Recorded Male 06/01/2020 11:57 AM SERVICE LIAISON REPRESENTATIVE documented as of this encounter Last Filed Vital Signs Vital Sign Reading Time Taken Comments Blood Pressure 129/82 07/06/2021 1:55 PM SERVICE LIAISON REPRESENTATIVE Pulse 127 07/06/2021 1:55 PM SERVICE LIAISON REPRESENTATIVE Temperature - - Respiratory Rate - - Oxygen Saturation - - Inhaled Oxygen Concentration - - Weight 83 kg (182 lb 15.7 oz) 07/06/2021 1:55 PM SERVICE LIAISON REPRESENTATIVE Height 172 cm (5' 7.72) 07/06/2021 1:55 PM SERVICE LIAISON REPRESENTATIVE Body Mass Index 28.06 07/06/2021 1:55 PM SERVICE LIAISON REPRESENTATIVE documented in this encounter Progress Notes Meseret Kyle, AYAKA, C.N.P., M.S.N. - 07/06/2021 2:00 PM CST Images from the original note were not included. SUBJECTIVE CHIEF COMPLAINT/REASON FOR CONSULT Pre electrophysiology study and possible ablation history and physical HISTORY OF PRESENT ILLNESS Mr. Luisito Rainey is a pleasant 30 y.o. male who [facility] to review information on the upcoming electrophysiology study (EPS) and possible ablation with Dr. Donald on 07/07/2021. 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 Mr. Rainey's pertinent arrhythmia history is well documented in a prior sul-reia-mi-face visit with Dr. Donald on 05/25/2021. In brief, Mr. Rainey has a longstanding history of chronic daily palpitations (dating back to age 14), anxiety, and at times associated with chest pain and leg tingling. He had empiric slow pathway ablation on 05/26/2019. He felt better for a few weeks after but palpitationsrecurred. He had a subsequent EP study on 12/13/2020 with no inducible arrhythmias or demonstrated recovery of the slow pathway. He has trialed beta-terrence therapy with Nadolol and more recently metoprolol tartrate 75 mg twice daily. He is also on Ivabradine. He experiences intolerable side effects with beta-blockers including anxiety and feeling poorly (exhaustion). He has had multiple EMS calls and emergency room visits, most recently in April when tachycardia resolved spontaneously. He has followed with Dr. Gonzalez at [facility] who has noted no documented SVT to target for ablation and advised medical therapy and the second opinion done here with Dr. Donald. During their visit, Dr. Donald suggested repeat EP study to evaluate for an SVT amenable to ablation but we will not target sinus tachycardia (normal or inappropriate). In the 2 weeks preceding the procedure, Mr. Rainey was advised to wean down on the metoprolol slowly while monitored in an effort to capture the onset of SVT and correlate symptoms. Mr. Rainey held metoprolol and ivabradine as of more than 1 week ago. Off these medications, he notes per his Apple Watch recordings that his heart rate escalates easily with any exertional activity. He has taken metoprolol a few times for emergencies with heart rates in 160s associated with difficulty breathing and fatigue. He occasionally, but not recently, will get chest pain with the fast rates. He also had lightheadedness/dizziness with episodes but no pre-syncope or syncope. He feels miserable on a daily basis. 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 He notes heart rates in the 190s (on EMS calls) but was not eager to try adenosine as offered. He has found vagal maneuvers (bending over and straining, cold showers, blowing through straw) minimally helpful. Mr. Rainey a recent illness, infection, or hospitalization. There has been no cough, fever, or chills. He denies any history of adverse reaction to anesthesia. Allergies Allergen Reactions ??? Kiwi Anaphylaxis ??? [place] Anaphylaxis ??? Spencer Flavor Other (see comments) Spencer ??? Pineapple Anaphylaxis ??? Ascorbate Calcium-Bioflavonoid Other (see comments) Cold sores ??? Ascorbic Acid Other (see comments) Cold sores ??? Bioflavonoids Other (see comments) Cold sores ??? Choline Fenofibrate Other (see comments) Cold sores ??? Cyanocobalamin (Vitamin B12) Other (see comments) Cold sores ??? Inositol Other (see comments) Cold sores ??? Lemon Oil Other (see comments) Cold sores ??? Niacinamide Other (see comments) Cold sores ??? Pantothenic Acid Other (see comments) Cold sores ??? Pyridoxine Other (see comments) Cold sores ??? Riboflavin (Vitamin B2) Other (see comments) Cold sores ??? Thiamine (Vitamin B1) Other (see comments) Cold sores ??? Cephalexin Nausea And Vomiting and Other (see comments) ??? Lemon Other (see comments) ??? Craig Other (see comments) ??? Multivitamin With Iron,Other Minerals Other (see comments) COLD SORE REACTION TO VARIOUS/NUMEROUS ??? Yell Other (see comments) ??? [place] Other (see comments) ??? Choline Other (see comments) ??? Grape Seed Extract Other (see comments) ??? Lemon Flavor Other (see comments) Current Medications: ??? EPINEPHrine 0.3 mg/0.3 mL injection syringe, Inject intramuscularly as needed. ??? gabapentin (NEURONTIN) 300 mg capsule, Take 300 mg by mouth 2 (two) times a day. ??? gabapentin (NEURONTIN) 600 mg tablet, Take 600 mg by mouth 2 (two) times a day. ??? hydrOXYzine (VISTARIL) 100 mg capsule, Take 100 mg by mouth as needed. ??? LORazepam (ATIVAN) 1 mg tablet, Take 1 tablet by mouth as needed. ??? melatonin 10 mg tablet, Take 10 mg by mouth at bedtime. ??? jrbmnemegnrp-Od-irvp-minerals tablet, Take 1 tablet by mouth as needed. ??? ondansetron (ZOFRAN) 4 mg tablet, Take 4 mg by mouth as needed. ??? sertraline (ZOLOFT) 100 mg tablet, Take 100 mg by mouth daily. Past Medical History: Diagnosis Date ??? Anxiety Generalized Disorder ??? Attention Deficit Hyperactive Disorder ??? Concussion Loss Of Consciousness Unspecified Duration Initial ??? Depressive Disorder ??? Disturbance Sleep ??? Drug Withdrawal Syndrome (HCC) ??? Headache Unspecified ??? Hypertension NOS ??? Injury Head Initial ??? Posttraumatic Stress Disorder Brief ??? Suicide Attempt Personal History Past Surgical History: Procedure Laterality Date ??? OTHER SURGICAL HISTORY Ablation surgery in 2019 Family History Problem Relation Age of Onset ??? Anxiety disorder Mother ??? Depression Mother ??? Alcohol abuse Mother ??? Thyroid disease Mother Izzy Mom has history of WPW and prior SVT ablation. Social History Tobacco Use Smoking Status Current Every Day Smoker ??? Packs/day: 0.50 ??? Years: 16.00 ??? Pack years: 8.00 ??? Types: Cigarettes Smokeless Tobacco Former User ??? Types: Chew Social History Substance and Sexual Activity Alcohol Use Not Currently ??? Alcohol/week: 0.0 standard drinks Comment: No alcohol in over 2 years Social History Substance and Sexual Activity Drug Use Never REVIEW OF SYSTEMS All systems reviewed and negative except as stated in the HPI. OBJECTIVE BP 129/82 (BP Location: Right arm, Patient Position: Sitting, Cuff Size: Regular) Pulse (!) 127 Ht 172 cm Wt 83 kg BMI 28.06 kg/m?? Body mass index is 28.06 kg/m??. PHYSICAL EXAMINATION General: Well groomed and in no acute distress. Skin: Warm and dry. Heart: Regular rhythm, regular rate. S1, S2. No appreciation of rubs, gallops or murmurs. Lungs: Clear to auscultation bilaterally. Breathing is unlabored. Extremities: No lower extremity edema. Neuro: Alert and oriented to person, place and time. Psych: Appropriate mood and affect. DIAGNOSTICS Ambulatory monitoring report is pending. Tracings are below. ECG 12 Lead Result Date: 07/06/2021 Normal sinus rhythm Normal ECG When compared with ECG of 01-OCT-2012 06:59, No significant change was found Reviewed by PANCHO Archibald DX Chest AP or PA and Lateral 2 Views Result Date: 07/06/2021 Impression: No change since 02/19/2021. Negative chest. Echo Transthoracic (TTE) Result Date: 07/06/2021 Impression: LEFT VENTRICLE:Normal left ventricular chamber size. Normal left ventricular wall thickness. Calculated 2-D biplane volumetric left ventricular ejection fraction 55%. No regional wall motion abnormalities. Normal left ventricular diastolic function. RIGHT VENTRICLE:Normal right ventricularchamber size. Normal right ventricular systolic function. Estimated right ventricular systolic pressure 21 mmHg (right atrial pressure of 5 mmHg). ATRIA:Normal left atrial size. Left atrial volume index 23 ml/m2. Normal right atrial size. CARDIAC VALVES:Trileaflet aortic valve. Normal aortic valve. Noaortic valve regurgitation. Normal mitral valve. Trivial mitral valve regurgitation. Normal pulmonary valve. Normal pulmonary valve systolic velocities. Trivial pulmonary valve regurgitation. Normal tricuspid valve. Trivial tricuspid valve regurgitation. [...] effusion. For the complete report, see the Order-Level Documents. LABS Recent Results (from the past 24 hour(s)) Basic Metabolic Panel Collection Time: 07/06/21 11:09 AM Result Value Potassium, S 4.7 Sodium, S 143 Chloride, S 103 Bicarbonate, S 28 Anion Gap 12 BUN (Blood Urea Nitrogen), S 8 Creatinine, S 0.98 eGFR-Non Black/ >90 eGFR-Black/ >90 Calcium, Total, S 9.7 Glucose, S 99 CBC without Differential Collection Time: 07/06/21 11:10 AM Result Value Hemoglobin 16.2 Hematocrit 48.5 Erythrocytes 5.49 MCV 88.3 RBC Distrib Width 12.1 Platelet Count 236 Leukocytes 9.9 (H) Type and Screen (with reflex Antibody ID) Collection Time: 07/06/21 11:10 AM Result Value ABORh A Pos Antibody Screen Negative Type & Screen Expiration 07/09/2021 23:59 Testing Location [place] ASSESSMENT / PLAN #1 Tachycardia Supraventricular (HCC) Mr. Luisito Rainey comes in to review information on the upcoming EPS and possible ablation of SVT with Dr. Dr. Donald on 07/07/2021. Using patient education material Supraventricular Tachycardia and a cardiac model, we reviewed howthe procedure is performed and a broad overview of atrial arrhythmias. Mr. Rainey understands that he will receive local anesthetic and/or moderate sedation versus being awake versus general anesthesiaduring the procedure. Sheaths will be placed in the femoral vein(s) and/or arteries, radial artery, and possibly the internal jugular vein. The conduction system will be tested and attempts will be made to induce arrhythmia with pacing techniques and/or medication administration. If an arrhythmia is induced, ablation will be performed if it is both clinically significant and the benefit outweighs risk. If an arrhythmia is not induced or mapped, ablation will not be performed. The procedure may take 2-4 hours with a minimum of 2-4 hours of bedrest in recovery. Same day discharge is planned barring any unforseen complications. He was given verbal and written instructions for calling in for procedurereport time, a map of [facility], the need to have a carrier driver, typical procedure length and recovery time, post procedure activity and driving limitations, and when to hold food and fluids. Mr. Rainey was advised to make the following changes to medications: None. Mr. 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 I advised Mr. Rainey, and left a message for Jeremie Pacheco Hank, that we are unable to complete this paperwork until after his procedure whenwe can be more accurate about the necessary time off. Mr. Rainey has copies of the paperwork and will bring this with him to the hospital. INFORMED CONSENT Discussed the risks, benefits, and alternatives of the procedure and of possible blood transfusion. Discussed advance directives and the necessity of other members of the healthcare team participating in the procedure. There is a 1-2% (EPS) and 2-5% (ablation) risk of complications to include include but not limited to: pain, infection, sepsis, cardiac perforation, damage to blood vessel(s), which may require surgical repair (e.g. hematoma, pseudoaneurysm, arteriovenous fistula, retroperitoneal bleed), pneumothorax, perforation of the heart muscle, or tamponade, damage to the conduction system requiring a pacemaker, damage to the heart valves, phrenic nerve injury, atrioesophageal fistula, and risk of heart attack, stroke or related to any of the above. All questions answered and consent given. Meseret Kyle APRN, C.N.P., M.S.N. 07/06/2021 ICE LIAISON REPRESENTATIVE documented in this encounter Plan of Treatment Not on filedocumented as of this encounter Visit Diagnoses Diagnosis Tachycardia Supraventricular (HCC) - [facility] documented in this encounter Additional Health Concerns Infection Onset Date Last Indicated Resolved Time COVID19 Pending 07/06/2021 07/06/2021 07/06/2021 5:05 PM SERVICE LIAISON REPRESENTATIVE Assessment Noted Time PHQ-9 Depression Total Score: 11 09/09/2015 4:10 PM CD T documented as of this encounter Care Teams Wafer Fab Operator Relationship Specialty Start Date End Date Elsewhere, Pcp PCP - General Internal Medicine 07/04/21 documented as of this encounter
--- OUTSIDE RECORDS SUMMARY | 2022-01-16 18:20 | XMS_ITS | Encounter Summary ---
:1990 Author Organization [facility] Address [address] [place] [id number] Care Team Providers Name Role Phone Elsewhere, Pcp Primary Care Provider Unavailable Reason for Referral Outpatient (Routine) - Closed Specialty Diagnoses / Procedures Referred By Contact Refer red To Contact Diagnoses Tachycardia Supraventricular (HCC) Rodrigo Gray V. [facility] Procedures Echo Transthoracic (TTE) Karley, Ph.D. [address] [place] [phone] Referral ID Status Reason Start Date Expiration Date Visits Requ ested Visits Authorized [id number] Closed 05/26/2021 05/26/2022 1 1 utpatient (Routine) - Closed Specialty Diagnoses / Procedures Referred By Contact Refer red To Contact Diagnoses Tachycardia Supraventricular (HCC) Rodrigo Gray V. [facility] Procedures ECG 12 Lead Karley, Ph.D. [address] [place] [phone] Referral ID Status Reason Start Date Expiration Date Visits Requ ested Visits Authorized [id number] Closed 05/26/2021 05/26/2022 1 1 MOTIVE PARTS COUNTER ASSOCIATE Encounter Details Date Type Department Care Team Description 05/26/2021 Clinical Communication Department of Lorin Rodriguez Cardiovascular Medicine A, [place] in [facility] [address] [facility] [address] [place] [phone] Social History Tobacco Use Types Packs/Day Years [...] er 07/18/2021 How often do you attend shinto or catholic services? Never 07/18/2021 Do you belong to any clubs or organizations such as shinto N o 07/18/2021 groups, unions, fraternal or [...] at Date Recorded Male 06/01/2020 11:57 AM AUTOMOTIVE PARTS COUNTER ASSOCIATE documented as of this encounter Miscellaneous Notes Telephone Encounter - Jessica Mcgarry - 07/10/2021 12:03 PM CST Paperwork has been completed by Reagan Andersen PA-C and was faxed over to [place], as patient did sign an authorization. [employer]IVE [employer]S COUNTER ASSOCIATE Telephone Encounter - Jessica Mcgarry - 07/06/2021 7:43 AM CST Forms have been received and emailed to [employer] for completion. MOTIVE [employer]S COUNTER ASSOCIATE Telephone Encounter - Sachin Ghosh R.N. - 07/05/2021 4:34 PM CST INFORMATION DISCUSSED Mr. Rainey called into HRS today. We reviewed pre-procedure education and addressed he questions regarding medications and fasting. Mr. Rainey is having some paperwork that his employer needs filled out. We have not received this yet, but will have our medical secretaries follow up on this. PLAN Disposition/Recommendation: recommended continue engagement in self-management activities Education: patient/caller able to teach back Caller agreeable to plan of care: yes The following references were used: nursing clinical judgement MOTIVE [employer]S COUNTER ASSOCIATE Telephone Encounter - Shakira Cerrato - 06/14/2021 1:50 PM CST This is scheduled, PAG Mailed. Robert Rosenberg MOTIVE PARTS COUNTER ASSOCIATE Telephone Encounter - Lorin Rodriguez R.N. - 05/26/2021 12:28 PM AUTOMOTIVE [employer]S COUNTER ASSOCIATE Contacted Luisito TJeremie Rainey regarding the scheduling for their EPS +/- AVNRT ablation. Mr. Rainey was referred by Dr. Gray for this procedure. Had virtual visit with Dr. Gray 05/25/2021- [id number] score of 0 Pre-procedure Appointment: 07/06/2021- COVID testing before noon and rest of testing after COVDI testing- will need FTF visit with LOG COOKER as well. Pre-Procedure Testing Ordered: labs including Type and screen, CXR , Echo and COVID tesitng Pre-Procedure Testing Completed:labs 03/19/2021 GFR >560,TSH 1.62 02/19/2021 Case Urgency:elective-SDD current orders active in EMR Procedure Date: 07/07/2021 Procedure: EPS +/- AVNRT redo with Dr. Gray Calling In for your Report Time: The night before the procedure, please call the [facility] Service Line ([phone]) or the [facility] Backup Line ([phone]) between 7pm and midnight to find out what time to arrive. This automated phone line will have you type in your [facility] Number (#) and birthdate () to determine your arrival time. On the day of your procedure: Check into [facility] 4th Floor (east elevators) at the [facility] 4D desk. Youdo not need to check into the Admissions Desk prior. Fasting Instructions: You must fast prior to this procedure. Please stop eating solid foods 8 hours prior to your arrival time. You may continue clear liquids until 2 hours prior to your arrival time. For medication management, please complete as follows: Cardiac Medications: Metoprolol (Lopressor) - decrease daily dose by 50% 8 days prior to procedure and stop medication 4 days prior to procedure and Ivabradine (Corlanor) - patient to stop medication 3days prior to procedure Anticoagulation: NA In regard to coumadin, continue coumadin and check your INR 6 days prior to the scheduled procedure.Tell your providers that your INR goal for the procedure is 2.0-2.5. Please have your provider adjust your coumadin dosage to meet this goal 6 days prior to the procedure. We will additionally check your INR the day before the procedure. ??? Diabetes Medications: NA ??? All Other Medications: Continue taking all other medications as prescribed. On the morning of your procedure, take only your prescription medications and skip any supplements that are not prescribed by a medical provider. ??? Contrast Allergy:NA CPAP/BiPAP: Please bring your CPAP machine with you to your procedure if you currently use one. It may be used during the procedure or as you recover. Same Day Dismissal: For this procedure, there is a possibility that you will be dismissed the same day. In this case, you will need to either live within 100 miles of [place], [place] or spend the night in [place] postprocedure. If you live within 100 miles and live greater than 30 minutes outside of [place], [place]); it is highly recommended that you spend the night in [place], [place]. ??? If you experience any complications or have questions post procedure overnight, please call the [facility] Manager at: [phone] and ask for [employer]. Theywill connect you to the on-call provider to assist you further. ??? You will receive sedation for your procedure, so an adult service parts driver and supervision is required for24 hours after the procedure. Please ensure you have someone present with you the day of your procedure. ??? Please note: If you experience any post-operative complications and/or your procedure is late int day, you may spend the night in the hospital and if well, be dismissed the next day. Hospital Stay: For this procedure you will spend the night in the hospital. If all is well, you will be dismissed the next day. Activity Restrictions: Due to being given sedation, you will not be able to drive yourself for 24 hours post procedure. Youwill be on lifting restrictions after the procedure. Remember-- no lifting, pushing, or pulling anything over 5 pounds for 7-10 days after the ablation. You may shower after 48 hours, but there is no soaking of your access sites for 7-10 days in any body of water (I.e. bath tub, hot tub, swimming pool, etc.). Contact information: ??? If you have any further questions prior to your procedure, please feel free to reach out to us at [phone]. ??? If you have any concerns or questions regarding your schedule, please contact the scheduling team at [phone]. ??? If you have any concerns or questions about your insurance or procedure coverage please contact our business office at [phone]. COVID Screening Questions: 1. Do you, anyone in the household, or anyone you have had prolonged exposure with in the past 5 days have (any of the following)?no a. Fever ? 38.0 C (100.0 F) last 24 hours - no b. New respiratory symptoms (e.g. cough, shortness of breath, respiratory distress, sore throat, headache, diarrhea, chills, loss of smell, change or loss of taste sensation, or myalgias) - no c. Contact with persons who are under quarantine or isolation for COVID in last 14 days, or is a LABORATORY CONFIRMED case of COVID-19? Close contact as defined by the CDC as: Being within approximately 6 feet of a COVID-19 patient for more than 5 minutes or having direct contact with infectious secretions of a COVID-19 case (e.g. being coughed on) -no d. Have you been tested for COVID-19 with a positive or pending result? -no has been fully vaccinated with booster Testing Information: ?? Location: [facility] in the [facility]. ?? If your Covid nasal swab is positive, we will contact you to reschedule your procedure. ?? If your Covid tests are not resulted in time for your procedure, expect your procedure to be postponed or rescheduled to a later date. [facility] Specific Instructions: ?? We encourage you to check [email or web address] for more information as these instructions may change before your procedural date. ?? Must wear a mask at ALL times while on [facility] (except for when eating or showering). ?? Visitor Policy: ?? You may have two consistent visitors accompany you to your outpatient appointments, testing, and to the outpatient procedure check-in area. Visitors are not allowed to rotate. ?? Two consistent visitors are permitted to visit in the inpatient setting during visiting hours of 6 am to 9 pm. Visitors are not allowed to rotate. Visitors must be age 5 or older. All visitors underthe age of 18 must be accompanied by a responsible adult. No visitors are allowed to stay overnight w ith the patient in the hospital (Exceptions will apply for hospitalized children under the age of 18, patients with end of life care needs, and during the of a child). ?? You and your visitors will be screened for COVID like symptoms prior to entering the facility. Please notify your care teams at [facility] if you develop COVID like symptoms prior to your appointments or procedures as your appointment or procedure may need to be modified. The patient verbalized understanding and agreement with instructions. All questions were answered. MOTIVE [employer]S COUNTER ASSOCIATE documented in this encounter Plan of Treatment Not on filedocumented as of this encounter Results ECG 12 Lead (07/06/2021 11:26 AM AUTOMOTIVE PARTS COUNTER ASSOCIATE) P athologist Signature Ventricular Rate 86 BPM MUSE ECG/Min [place] Interval 136 ms MUSE QRSD Interval 86 ms MUSE QT Interval 342 ms MUSE QTC Interval 409 ms MUSE P [place] 41 degrees MUSE R [place] 3 degrees MUSE T Wave [place] 34 degrees MUSE Specimen Anatomical Collection Method Collection Time Receive d Time (Source) Location / / Volume Laterality 07/06/2021 11:26 07/06/2021 AM AUTOMOTIVE [employer]S COUNTER ASSOCIATE 11:29 AM AUTOMOTIVE PARTS COUNTER ASSOCIATE Impressions MUSE - 07/06/2021 11:29 AM AUTOMOTIVE PARTS COUNTER ASSOCIATE Normal sinus rhythm Normal ECG When compared with ECG of 01-OCT-2012 06 :59, No significant change was found Reviewed by PANCHO Archibald Narrative This result has an attachment that is no t available. Procedure Note Gordon Stephen Jr., M.D. - 07/06/2021For matting of this note might be different from the original. IMPRESSION: Normal sinus rhythm Normal ECG When compared with ECG of 01-OCT-2012 06 :59, No significant change was found Reviewed by PANCHO Archibald Rodrigo Gray M.D., Ph.D. ECG ORDERABLES Performing Organization Address City/State/ZIP Code Phon e Number MUSE MUSE NA Type and Screen (with reflex Antibody ID) (07/06/2021 11:10 AM AUTOMOTIVE PARTS COUNTER ASSOCIATE) [facility] Method Time Signature ABORh A Pos Not 07/06/2021 ETRM applicable 12:04 PM AUTOMOTIVE PARTS COUNTER ASSOCIATE Antibody Negative Negative 07/06/2021 ETRM Screen 12:15 PM AUTOMOTIVE PARTS COUNTER ASSOCIATE Type & Screen 07/09/2021 07/06/2021 ETRM Expiration 23:59 12:04 PM AUTOMOTIVE PARTS COUNTER ASSOCIATE Testing [place] DEFAULT 07/06/2021 ETRM Location 11:28 AM AUTOMOTIVE PARTS COUNTER ASSOCIATE Specimen Anatomical Collection Method Collection Time Receive d Time (Source) Location / / Volume Laterality Blood (Blood, 07/06/2021 11:10 07/06/2021 Venous) AM AUTOMOTIVE PARTS COUNTER ASSOCIATE 11:28 AM AUTOMOTIVE PARTS COUNTER ASSOCIATE Rodrigo Gray M.D., Ph.D. LAB BLOOD BANK ANGELLA T ORDERABLES Performing Organization Address City/State/ZIP Code Phon e Number [facility] - [address] [place], [place] [address] [facility] [place] [address] Laboratories-[facility] [address] (ABNORMAL) CBC without Differential (07/06/2021 11:10 AM AUTOMOTIVE PARTS COUNTER ASSOCIATE) [facility] gist Method Time Signature Hemoglobin 16.2 13.2 - 07/06/2021 DTL 16.6 g/dL 11:53 AM AUTOMOTIVE PARTS COUNTER ASSOCIATE Hematocrit 48.5 38.3 - 07/06/2021 DTL 48.6 % 11:53 AM AUTOMOTIVE PARTS COUNTER ASSOCIATE Erythrocytes 5.49 4.35 - 07/06/2021 DTL 5.65 11:53 AM AUTOMOTIVE PARTS COUNTER ASSOCIATE x10(12)/L MCV 88.3 78.2 - 07/06/2021 DTL 97.9 fL 11:53 AM AUTOMOTIVE PARTS COUNTER ASSOCIATE RBC Distrib Width 12.1 11.8 - 07/06/2021 DTL 14.5 % 11:53 AM AUTOMOTIVE PARTS COUNTER ASSOCIATE Platelet Count 236 135 - 317 07/06/2021 DTL x10(9)/L 11:53 AM AUTOMOTIVE PARTS COUNTER ASSOCIATE Leukocytes 9.9 (H) 3.4 - 9.6 07/06/2021 DTL x10(9)/L 11:53 AM AUTOMOTIVE PARTS COUNTER ASSOCIATE Specimen Anatomical Collection Method Collection Time Receive d Time (Source) Location / / Volume Laterality Blood (Blood, 07/06/2021 11:10 07/06/2021 Venous) AM AUTOMOTIVE PARTS COUNTER ASSOCIATE 11:45 AM AUTOMOTIVE PARTS COUNTER ASSOCIATE Rodrigo Gray M.D., Ph.D. LAB BLOOD ADD-ON Performing Organization Address City/State/ZIP Code Phon e Number [facility] - 200 [place], [place] [address] [facility] [place] [address] Laboratories-[facility] 200 [facility] Basic Metabolic Panel (07/06/2021 11:09 AM AUTOMOTIVE PARTS COUNTER ASSOCIATE) P athologist Signature Potassium, S 4.7 3.6 - 5.2 07/06/2021 DTL mmol/L 12:20 PM AUTOMOTIVE PARTS COUNTER ASSOCIATE Sodium, S 143 135 - 145 07/06/2021 DTL mmol/L 12:20 PM AUTOMOTIVE PARTS COUNTER ASSOCIATE Chloride, S 103 98 - 107 07/06/2021 DTL mmol/L 12:20 PM AUTOMOTIVE PARTS COUNTER ASSOCIATE Bicarbonate, S 28 22 - 29 07/06/2021 DTL mmol/L 12:20 PM AUTOMOTIVE PARTS COUNTER ASSOCIATE Anion Gap 12 7 - 15 07/06/2021 DTL 12:20 PM AUTOMOTIVE PARTS COUNTER ASSOCIATE BUN (Blood Urea 8 8 - 24 07/06/2021 DTL Nitrogen), S mg/dL 12:20 PM AUTOMOTIVE PARTS COUNTER ASSOCIATE Creatinine, S 0.98 0.74 - 1.35 07/06/2021 DTL mg/dL 12:20 PM AUTOMOTIVE PARTS COUNTER ASSOCIATE eGFR-Non >90 >=60 07/06/2021 DTL Black/ mL/min/BSA 12:20 PM AUTOMOTIVE PARTS COUNTER ASSOCIATE [place]an Comment: ----ADDITIONAL INFORMATION---- Estimated GFR calculated using the 2009 CKD_EPI creatinine equation. eGFR-Black/ >90 >=60 mL/min/BSA 2021 12:20 PM AUTOMOTIVE PARTS COUNTER ASSOCIATE DTL Comment: ----ADDITIONAL INFORMATION---- Estimated GFR calculated using the 2009 CKD_EPI creatinine equation. Calcium, Total, S 9.7 8.6 - 10.0 mg/dL 07/06/2021 12:2 0 PM AUTOMOTIVE PARTS COUNTER ASSOCIATE DTL Glucose, S 99 70 - 140 mg/dL 07/06/2021 12:20 PM AUTOMOTIVE PARTS COUNTER ASSOCIATE DTL Specimen Anatomical Collection Method Collection Time Receive d Time (Source) Location / / Volume Laterality Blood (Blood, 07/06/2021 11:09 07/06/2021 Venous) AM AUTOMOTIVE PARTS COUNTER ASSOCIATE 11:56 AM AUTOMOTIVE PARTS COUNTER ASSOCIATE Rodrigo Gray M.D., Ph.D. LAB BLOOD ADD-ON Performing Organization Address City/State/ZIP Code Phon e Number [facility] - 200 [place], [place] [address] [facility] [place] [address] Laboratories-[address] DX Chest AP or PA and Lateral 2 Views (07/06/2021 10:50 AM AUTOMOTIVE PARTS COUNTER ASSOCIATE) Anatomical Region Laterality Modality Chest, Thoracic RST LOS, Thoracic ARZ LOS, Thoracic N/A Digital Radiography FLA LOS Specimen (Source) Anatomical Collection Method Collection Time Re ceived Time Location / / Volume Laterality 07/06/2021 10:52 AM AUTOMOTIVE PARTS COUNTER ASSOCIATE Impressions 07/06/2021 11:36 AM AUTOMOTIVE PARTS COUNTER ASSOCIATE No change since 02/19/2021. Negative [facility] ?? Narrative 07/06/2021 11:36 AM AUTOMOTIVE PARTS COUNTER ASSOCIATE EXAM: ??DX CHEST AP OR PA AND LATERAL 2 VIEWS Procedure Note Gato Conway M.D. - 07/06/2021Formatt ing of this note might be different from the original. EXAM: DX CHEST AP OR PA AND LATERAL 2 EWS IMPRESSION: No change since 02/19/2021. Negative [facility]. Rodrigo Gray M.D., Ph.D. IMG DIAGNOSTIC SANDHYA GING PROCEDURES SARS CoV-2 RNA, PCR, Varies Asymptomatic (07/06/2021 10:42 AM AUTOMOTIVE PARTS COUNTER ASSOCIATE) [facility] Method Time Signature SARS CoV-2 Swab, 07/06/2021 DTL RNA, PCR, Nasopharynx 5:04 PM AUTOMOTIVE PARTS COUNTER ASSOCIATE Source SARS CoV-2 Undetected Undetected 07/06/2021 DTL RNA, PCR 5:04 PM AUTOMOTIVE PARTS COUNTER ASSOCIATE Comment: SARS-CoV-2 RNA absent. This result does not rule out COVID-19 in the patient, as the sensitivity of the test depends o n the timing of the specimen collection and quality of the specimen. Result should be correlated with patient's history and clinical presentat ion. ----ADDITIONAL INFORMATION---- This RT-PCR test has received Emergency Use Authorization (EUA) by the U.S. Food and Drug Administration an d is used per formula maker's instructions. Performance characteristics were verified by [facility] in a manner consistent with CLIA requirements. Visit the CDC website: https://www.cdc.g ov/coronavirus/ for the most recent guidelines on Coron avirus testing. Fact Sheet for Healthcare Providers: https://www.fda.gov/media/172917/downloa d Fact Sheet for Patients: https://www.fda.gov/media/284274/downloa d Specimen Anatomical Collection Method Collection Time Receive d Time (Source) Location / / Volume Laterality Varies 07/06/2021 10:42 07/06/2021 (Nasopharynx) AM AUTOMOTIVE PARTS COUNTER ASSOCIATE 11:47 AM AUTOMOTIVE PARTS COUNTER ASSOCIATE Rodrigo Gray M.D., Ph.D. LAB MICROBIOLOGY - GENERAL ORDERABLES Performing Organization Address City/State/ZIP Code Phon e Number [facility] - [address] [place], [place] [address] [facility] [place] [address] Laboratories-[facility] [address] (TTE) 2D ECHO DOPPLER COLOR (07/06/2021 8:49 AM AUTOMOTIVE PARTS COUNTER ASSOCIATE) [facility] Method Time Signature Ejection Fraction 55 MC [...] / / Volume Laterality 07/06/2021 7:40 AM AUTOMOTIVE PARTS COUNTER ASSOCIATE Impressions 07/06/2021 2:57 PM AUTOMOTIVE PARTS COUNTER ASSOCIATE LEFT VENTRICLE:Normal left ventricular chamber size. Normal [...] effusion. For the complete report, see the [employer] Documents. Narrative 07/06/2021 2:57 PM AUTOMOTIVE PARTS COUNTER ASSOCIATE For the complete report, see the Order-Level [...] original. For the complete report, see the [employer] Documents. Final Impressions 1. Normal left ventricular [...] evel Documents. Rodrigo Gray M.D., Ph.D. CV ECHO PROCEDURES documented in this encounter Visit Diagnoses Diagnosis Tachycardia Supraventricular (HCC) - Bette christ Tachycardia Supraventricular (HCC) Tachycardia Supraventricular (HCC) documented in this encounter Additional Health Concerns Infection Onset Date Last Indicated Resolved Time COVID19 Pending 07/06/2021 07/06/2021 07/06/2021 5:05 PM AUTOMOTIVE PARTS COUNTER ASSOCIATE Assessment Noted Time PHQ-9 Depression Total Score: 11 09/09/2015 4:10 PM CD T documented as of this encounter Care Teams Bleach Mixer Relationship Specialty Start Date End Date Elsewhere, Pcp PCP - General Internal Medicine 07/04/21 documented as of this encounter
--- OUTSIDE RECORDS SUMMARY | 2022-01-16 18:20 | XMS_ITS | Encounter Summary ---
:1990 Author Organization [facility] Address [address] [place] [address] Care Team Providers Name Role Phone Elsewhere, Pcp Primary Care Provider Unavailable Reason for Visit Auth/Cert Specialty Diagnoses / Procedures Referred By Contact Refer red To Contact Diagnoses Tachycardia Supraventricular (HCC) Procedures GA EP EVAL W SUPRAVENT ABLATE DIAGNOSTIC EPS ABLATION - SVT Referral ID Status Reason Start Date Expiration Date Visits Requ ested Visits Authorized [id number] 1 1 Encounter Details Date Type Department Care Team Description 07/07/2021 Hospital Division of [place], Tachycardia Sup raventricular (HCC); Encounter Cardiovascular Rodrigo Arias Tachbeniardi a Supraventricular (HCC) Diseases in M.D., Ph.D. [place], [place] [address] [facility] [address] [place] [phone] Social History Tobacco Use Types Packs/Day Years [...] er 07/18/2021 How often do you attend worship or yazdanism services? 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 documented as of this encounter Last Filed Vital Signs Vital Sign Reading Time Taken Comments Blood Pressure 98/43 07/07/2021 12:[address] ADMINISTRATIVE ENGINEER Pulse 101 07/07/2021 12:[address] ADMINISTRATIVE ENGINEER Temperature 36.9 ??C (98.5 ??F) 07/07/2021 7:[address] ADMINISTRATIVE ENGINEER Respiratory Rate - - Oxygen Saturation 100% 07/07/2021 12:[address] ADMINISTRATIVE ENGINEER Inhaled Oxygen Concentration - - Weight - - Height - - Body Mass Index - - documented in this encounter Discharge Instructions Discharge InstructionsFYanna prescott - 07/07/2021 12:26 PM CST You were discharged from the [facility] CVD Interventional/Heart Rhythm Service. Please identify this [...] 4:00 p.m., contact the Electrophysiology Service at [phone]. For questions occurring after business hours, on weekends, nights, or holidays call [phone] and ask for Electrophysiology Acid Cutter. Heart Failure Assessment: Weigh yourself at the [...] avoid/skip your follow-up appointments, they are important! WAY ADMINISTRATIVE ENGINEER documented in this encounter Medications at [...] mouth at 0 03/01/20 21 tablet bedtime. [id number] Take 1 tablet by mouth 0 -minerals [...] instructions were reviewed in detail as per [id number] with patient and family and they verbalized understanding. Follow up appointment is arranged. Patient was dismissed when discharge criteria was met, accompanied byfriendAll questions answered. WAY ADMINISTRATIVE ENGINEER documented in this encounter Plan of Treatment Not on filedocumented as of this encounter Procedures Procedure Name Priority Date/Time Associated Diagnosis Comme nts ECG Routine 07/07/2021 11:37 Results for this AM HIGHWAY ADMINISTRATIVE ENGINEER procedure are i n the results section. HEART RHYTHM Routine 07/07/2021 10:57 Tachycardia Results for this PROCEDURE AM HIGHWAY ADMINISTRATIVE ENGINEER Supraventricular (HCC) proce dure are in the results section. ACT, POCT, B Routine 07/07/2021 10:45 Results for this AM HIGHWAY ADMINISTRATIVE ENGINEER procedure are i n the results section. ACT, POCT, B Routine 07/07/2021 10:07 Results for this AM HIGHWAY ADMINISTRATIVE ENGINEER procedure are i n the results section. ACT, POCT, B Routine 07/07/2021 9:40 Results for this AM HIGHWAY ADMINISTRATIVE ENGINEER procedure are i n the results section. ACT, POCT, B Routine 07/07/2021 9:22 Results for this AM HIGHWAY ADMINISTRATIVE ENGINEER procedure are i n the results section. ABG AND LYTES Routine 07/07/2021 9:19 Results for this EG6+, POCT, B AM HIGHWAY ADMINISTRATIVE ENGINEER procedure are in the results section. documented in this encounter Results ECG 12 Lead (07/07/2021 11:[address] ADMINISTRATIVE ENGINEER) P athologist Signature Ventricular Rate 92 BPM MUSE ECG/Min GA Interval 144 ms MUSE QRSD Interval 90 ms MUSE QT Interval 346 ms MUSE QTC Interval 427 ms MUSE P [place] 51 degrees MUSE R [place] -3 degrees MUSE T Wave [place] 43 degrees MUSE Specimen Anatomical Collection Method Collection Time Receive d Time (Source) Location / / Volume Laterality 07/07/2021 11:37 07/07/[address] ADMINISTRATIVE ENGINEER 11:[address] ADMINISTRATIVE ENGINEER Impressions MUSE - 07/07/2021 11:[address] ADMINISTRATIVE ENGINEER Normal sinus rhythm Normal ECG When [...] MUSE NA DIAGNOSTIC EPS (07/07/2021 10:[address] ADMINISTRATIVE ENGINEER) Anatomical Region Laterality Modality X-Ray Angiography Specimen (Source) Anatomical Collection Method Collection Time Re ceived Time Location / / Volume Laterality 07/07/2021 8:[address]MINISTRATIVE ENGINEER Narrative 07/07/2021 11:[address] ADMINISTRATIVE ENGINEER For the complete report, see the [...] (Activated Clotting Time), POCT (07/07/2021 10:[address] ADMINISTRATIVE ENGINEER) P athologist Signature Activated 114 84 - 139 07/07/2021 PCSM Clotting Time, sec 10:[address] ADMINISTRATIVE ENGINEER POCT Specimen Anatomical Collection Method Collection Time Receive d Time (Source) Location / / Volume Laterality Blood 07/07/2021 10:45 07/07/[address] ADMINISTRATIVE ENGINEER 10:[address] ADMINISTRATIVE ENGINEER Unknown Provider LAB POCT ORDERABLES - DEVICE Performing Organization Address City/State/ZIP Code Phon e Number POC [facility] [address] [place], [place] [address] [place] [address] [place] [facility] [address] (ABNORMAL) ACT (Activated Clotting Time), POCT (07/07/2021 10:[address] ADMINISTRATIVE ENGINEER) P athologist Signature Activated 211 (H) 84 - 139 07/07/2021 PCSM Clotting Time, sec 10:[address] ADMINISTRATIVE ENGINEER POCT Specimen Anatomical Collection Method Collection Time Receive d Time (Source) Location / / Volume Laterality Blood 07/07/2021 10:07 07/07/[address] ADMINISTRATIVE ENGINEER 10:[address] ADMINISTRATIVE ENGINEER Unknown Provider LAB POCT ORDERABLES - DEVICE Performing Organization Address City/[facility] Phon e Number POC [facility]ST [facility] [address] [place], [place] [address] [place] [address] [place] [facility] [address] (ABNORMAL) ACT (Activated Clotting Time), POCT (07/07/2021 9:[address] ADMINISTRATIVE ENGINEER) P athologist Signature Activated 211 (H) 84 - 139 07/07/2021 PCSM Clotting Time, sec 9:[address] ADMINISTRATIVE ENGINEER POCT Specimen Anatomical Collection Method Collection Time Receive d Time (Source) Location / / Volume Laterality Blood 07/07/2021 9:40 AM 2 9:[address]MINISTRATIVE ENGINE[address] AM HIGHW[address] ADMINISTRATIVE ENGINEER Unknown Provider LAB POCT ORDERABLES - DEVICE Performing Organization Address City/[facility] Phon e Number POC [facility] [address] [place], [place] [address] [place] [address] [place] [facility] [address] (ABNORMAL) ACT (Activated Clotting Time), POCT (07/07/2021 9:[address] ADMINISTRATIVE ENGINEER) P athologist Signature Activated 216 (H) 84 - 139 07/07/2021 PCSM Clotting Time, sec 9:[address] ADMINISTRATIVE ENGINEER POCT Specimen Anatomical Collection Method Collection Time Receive d Time (Source) Location / / Volume Laterality Blood 07/07/2021 9:22 AM 2 9:[address]MINISTRATIVE ENGINEER AM HIGHWAY ADMINISTRATIVE ENGINEER Unknown Provider LAB POCT ORDERABLES - DEVICE Performing Organization Address City/[facility] Phon e Number POC [facility] [address] [place], [place] [address] [place] [address] [place] [facility] [address] (ABNORMAL) ABG and Lytes, POCT (07/07/2021 9:[address] ADMINISTRATIVE ENGINEER) P athologist Signature Sample Site, Artline 07/07/2021 PCLX POCT 9:[address] ADMINISTRATIVE ENGINEER Comment: ----ADDITIONAL INFORMATION---- Performed at the Point of Care pH, POCT 7.34 (L) 7.35 - 7.45 07/07/2021 9:[address] ADMINISTRATIVE ENGINEER PCLX Comment: ----ADDITIONAL INFORMATION---- Performed at the Point of Care pCO2, POCT 51 (H) 35 - 48 mm Hg 07/07/2021 9:[address] ADMINISTRATIVE ENGINEER PC LX Comment: ----ADDITIONAL INFORMATION---- Performed at the Point of Care pO2, POCT 151 (H) 83 - 108 mm Hg 07/07/2021 9:[address] ADMINISTRATIVE ENGINEER PC LX Comment: ----ADDITIONAL INFORMATION---- Performed at the Point of Care Base, POCT 2 -2 - 3 mmol/L 07/07/2021 9:[address] ADMINISTRATIVE ENGINEER PC LX Comment: ----ADDITIONAL INFORMATION---- Performed at the Point of Care HCO3, POCT 28 (H) 22 - 26 mmol/L 07/07/2021 9:[address] ADMINISTRATIVE ENGINEER P CLX Comment: ----ADDITIONAL INFORMATION---- Performed at the Point of Care Sodium, POCT, B 140 135 - 145 mmol/L 07/07/2021 9:[address] ADMINISTRATIVE ENGINEER PCLX Comment: ----ADDITIONAL INFORMATION---- Performed at the Point of Care Potassium, POCT, B 3.5 (L) 3.6 - 5.2 mmol/L 07/07/2021 9:[address] ADMINISTRATIVE ENGINEER PCLX Comment: ----ADDITIONAL INFORMATION---- Performed at the Point of Care Hematocrit, POCT, B 41.0 38.3 - 48.6 % 07/07/2021 9:[address] ADMINISTRATIVE ENGINEER PCLX Comment: ----ADDITIONAL INFORMATION---- Performed at the Point of Care Specimen Anatomical Collection Method Collection Time Receive d Time (Source) Location / / Volume Laterality Blood 07/07/2021 9:19 AM 9:[address]RATIVE ENGINE[address] AM HIGHW[address] ADMINISTRATIVE ENGINEER Unknown Provider LAB POCT ORDERABLES - DEVICE Performing Organization Address City/State/ZIP Code Phon e Number POC [facility] [address] [place] [address] PCLX [facility] [place] [address] [place] [facility] [address] documented in this encounter [...] 120 mg (CARDIZEM Given 07/07/2021 2:[address] ADMINISTRATIVE ENGINEER 120 mg CD/CARTIA XT) 120 mg, oral, Once, On Sat07/07/21 at 1430, For 1 dose, PACU (only), Swallow whole. Do NOT crush, chew or open capsule. erythromycin 5 mg/gram (0.5 %) ophthalmic Given 07/07/2021 2:[address] ADMINISTRATIVE ENGINEER 1 cm ointment 1 cm (ROMYCIN) [...] Starting on Sat07/07/21 at 0805, Intraprocedure (CV) LORazepam (ATIVAN) 1 mg tablet - ADS Ove rride Pull Starting on Sat07/07/21 at 1148, For 1 dose, Created b y cabinet override LORazepam tablet 1 mg (ATIVAN) Given 07/07/2021 12:[address] ADMINISTRATIVE ENGINEER 1 mg 1 mg, oral, Once, On Sat07/07/21 at 1145, For 1 dose, PACU (only) nicotine polacrilex (NICORETTE) 2 mg gum - ADS Override Pull Starting on Sat07/07/21 at 1147, For 1 dose, Created b y cabinet override nicotine polacrilex gum 4 mg (NICORETTE) Given 07/07/2021 12:[address] ADMINISTRATIVE ENGINEER 4 mg 4 mg, buccal, Every [...] intravenous, As needed, line care, Starting on F ri 07/07/21 at 0708, Preprocedure (CV), Prior to [...] Recently Administered Medications Times are shown in HIGHWAY ADMINISTRATIVE ENGINEER. Scheduled Medication Order 07/05/2021 07/06/2021 07/07/2021 dilTIAZem CD 24 hr capsule 120 mg (CARDIZEM CD/CARTIA XT) (COMPL ETED) 1446 (Given - Provider: Daxa Adler R.N.) 120 mg, oral, Once, On Sat07/07/21 at [...] (ATIVAN) (COMPLETED) 1225 (Given - Provider: Polly HaerNJeremie) 1 mg, oral, Once, On Sat07/07/21 at [...] (NICORETTE) 1226 (Given - Provider: Daxa Adler R.N.) 4 mg, buccal, Every 1 hour PRN, [...] documented as of this encounter Care Teams Mobile Battery Technician Relationship Specialty Start Date End Date Elsewhere, Pcp PCP - General Internal Medicine 07/04/21 documented as of this encounter
--- OUTSIDE RECORDS SUMMARY | 2022-01-16 18:20 | XMS_ITS | Encounter Summary ---
:1990 Author Organization [facility] Address [address] [place] [address] Care Team Providers Name Role Phone Elsewhere, Pcp Primary Care Provider Unavailable Reason for Visit Reason Comments Remote Patient Monitoring Disconnected Monitor Encounter Details Date Type Department Care Team Description 06/12/2021 Clinical Department of [place], Remote Patient Communication Cardiovascular [place] in [employer], Ph.D. (Disconnected [place], [place] [address] [facility] Monitor) [address] [place] [id number] [phone] Social History Tobacco Use Types Packs/Day Years [...] er 07/18/2021 How often do you attend episcopalian or christian services? Never 07/18/2021 Do you belong to any clubs or organizations such as episcopalian N o 07/18/2021 groups, unions, fraternal or [...] place to sleep or slept in a half-way (including now)? Education Answer Date Recorded What is the highest level of school you have GED or equivale nt 05/20/2021 completed or the highest degree you have received? 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 As you are aware, the device relies on cellular network to store and transmit data. This message is to alert you that we have not received data from this patient for more than 24 hours; therefore, near real-time data is recording and being stored, but may not be available in the cardiac ambulatory monitoring portal. Our team is actively working with the patient to troubleshoot the issue. We will keep in touch if wecontinue to experience connectivity issues. If you have any questions, please respond to this notification or call us at [phone] NG MANAGER documented in this encounter Plan of Treatment Not on filedocumented as of this encounter Visit Diagnoses Not on filedocumented in this encounter Additional Health Concerns Infection Onset Date Last Indicated Resolved Time COVID19 Pending 07/06/2021 07/06/2021 07/06/2021 5:05 PM CODING MANAGER Assessment Noted Time PHQ-9 Depression Total Score: 11 09/09/2015 4:10 PM CD T documented as of this encounter Care Teams Digital Advisor Relationship Specialty Start Date End Date Elsewhere, Pcp PCP - General Internal Medicine 07/04/21 documented as of this encounter
--- OUTSIDE RECORDS SUMMARY | 2022-01-16 18:21 | XMS_ITS | Encounter Summary ---
:1990 Author Organization [facility] Address [address] [place] [address] Care Team Providers Name Role Phone Unavailable Primary Care Provider Unavailable Encounter Details Date Type Department Care Team Description 03/20/2003 - Hospital Encounter HX RST [facility] [address] [facility] 03/30/2003 Social History Tobacco Use Types Packs/Day Years [...] er 07/18/2021 How often do you attend anabaptist or mandaeism services? Never 07/18/2021 Do you belong to any clubs or organizations such as anabaptist N o 07/18/2021 groups, unions, fraternal or [...] place to sleep or slept in a halfway (including now)? 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
--- OUTSIDE RECORDS SUMMARY | 2022-01-16 18:21 | XMS_ITS | Encounter Summary ---
:1990 Author Organization [place] Address [facility] [place] [address] Care Team Providers Name Role Phone Unavailable Primary Care Provider Unavailable Encounter Details Date Type Department Care Team Description 01/02/2016 Telephone [facility] Nurse Destiny Salas , RN [employer] [address] [email or web address] [address] Social History Tobacco Use Types Packs/Day Years Used Date Never Assessed Sex Assigned at Date Recorded Not on file documented as of this encounter Miscellaneous Notes Telephone Encounter - Destiny Salas RN - 01/02/2016 5:33 PM CDT Call Type: Triage Call Presenting Problem: Patient called stating that he had been in the [place] [facility] room last evening for a panic attack. He is requesting two tablets of Ativan to get him through so he can go in for a clinic appointment tomorrow. Dr. Damon was lamination builder and okayed two tablets, and states that the patient needs to go to see him tomorrow at the [facility]. Patient was advised and he will call the clinic in the morning to get an appointment time. The Ativan was called to the [facility] in [place]. Triage Note: Guideline Title: Medication Questions - [...]
--- OUTSIDE RECORDS SUMMARY | 2022-01-16 18:21 | XMS_ITS | Encounter Summary ---
:1990 Author Organization [place] Address [address] [place] [address] Care Team Providers Name Role Phone Unavailable [...]
--- OUTSIDE RECORDS SUMMARY | 2022-01-16 18:21 | XMS_ITS | Encounter Summary ---
:1990 Author Organization [facility] Address [address] [place] [address] Care Team Providers Name Role Phone No Ref-Primary, Physician Primary Care Provider [phone] Encounter Details Date Type Department Care [...] on filedocumented in this encounter Care Teams Textiles Sales Representative Relationship Specialty Start Date End Date No Ref-Primary, Physician PCP - General 03/15/21 documented as of this encounter
--- OUTSIDE RECORDS SUMMARY | 2022-01-16 18:21 | XMS_ITS | Encounter Summary ---
:1990 Author Organization [facility] Address [address] [place] [address] Care Team Providers Name Role Phone Found, No Pcp MD Primary Care Provider Unavailable Reason for Visit Reason Comments Chest Pain CRISIS EVALUATION--ED Encounter Details Date Type Department Care Team Description 04/11/2021 Emergency [facility] Emergency Dept Yee Powell, Heart palpitations (Primary Dx); [address] [facility]. PA-C Anxiety (HRC); [place] [address] [address] [facility] Suicidal ideation [phone] [place], [place] [phone] (Wo rk) Social History Tobacco Use Types Packs/Day Years Used Date Smoking Tobacco: Every Day Cigarettes 1 20 S tarted: 01/12/2001 Smokeless Tobacco: Current Snuff Alcohol Use Standard Drinks/Week Comments Never 0 (1 standard drink = 0.6 oz pure alcoho l) Alcohol Habits Answer Date Recorded How often do you have a drink containing alcohol? Never 01/12/2021 How many drinks containing alcohol do you have on a typical Not asked day when you are drinking? How often do you have six or more drinks on one occasion? No t asked Comment: Not asked Food Insecurity Answer Date Recorded Within the past 12 months, you worried that your food would Never true 01/12/2021 run out before you got money to buy more. Within the past 12 months, the food you bought just didn't N ever true 01/12/2021 last and you didn't have money to get more. Sex Assigned at Date Recorded Not on file documented as of this encounter Last Filed Vital Signs Vital Sign Reading Time Taken Comments Blood Pressure 154/106 04/11/2021 4:46 PM CDT Pulse 87 04/11/2021 4:46 PM CDT Temperature 36.7 ??C (98.1 ??F) 04/11/2021 4:46 PM CDT Respiratory Rate 20 04/11/2021 4:46 PM CDT Oxygen Saturation 97% 04/11/2021 4:46 PM CDT Inhaled Oxygen Concentration - - Weight - - Height - - Body Mass Index - - documented in this encounter Discharge Instructions Discharge InstructionsYee Powell PA-C - 04/11/2021 7:11 PM CDT F/u with cardiology on 04/20/21 for heart palpitations. AttachmentsThe following attachments cannot be sent through Care Everywhere. Supraventricular Tachycardia (Somali)documented in this encounter Medications at Time of Discharge Medication Sig Dispensed Refills Start Date End Date gabapentin (NEURONTIN) Take 300 mg by mouth 0 100 MG capsule two times a day. MAGNESIUM GLYCINATE OR Take 100 mg by mouth 0 daily. melatonin 5 MG tablet Take 10 mg by mouth 0 daily at bedtime. metoprolol succinate Take 25 mg by mouth 0 (TOPROL XL) 25 MG 24 two times a day. hour release tablet metoprolol tartrate Take 25 mg by mouth 0 (LOPRESSOR) 25 MG two times daily as tablet needed for Other (heart palpatations). OLANZapine (ZYPREXA) Take 0.5-1 Tablets by 15 Tablet 1 02/2021 2.5 MG tablet mouth every 4 hours as needed for Other (Severe anxiety, agitation or psychosis.). Future management from primary psychiatry provider. QUEtiapine (SEROQUEL) Take 300 mg by mouth 0 100 MG tablet daily at bedtime. venlafaxine (EFFEXORXR) Take 1 Capsule by 30 Capsule 0 01/1701/17/2022 150 MG 24 hour release mouth daily. Future capsule management from primary psychiatry provider. documented as of this encounter ED Notes Stephanie Carrillo RN - 04/11/2021 8:26 PM CDT [facility] ED Nursing Discharge Note Patient discharged: to Home. Patient accompanied by: self. Transported by: Walked Belongings were taken home by patient: Yes Work/School Slip given: No Discharge instructions given and explained to patient: Yes Discharge prescriptions explained to patient: Yes: Medications Prescribed this Visit None Patient verbalized understanding. Yes Patient level of pain on discharge: tolerable Patients condition on discharge related to chief complaint and treatment in ED: Pt will follow up with cardiology and cont. Treatment Holds documented by nursing during this visit, please review chart for most current hold status: No orders of the defined types were placed in this encounter. ---End of Report--- Katherine Chavez - 04/11/2021 5:19 PM CDT Pt cooperative with EKG. Now resting in bed with no additional needs. Margot Huber - 04/11/2021 5:07 PM CDT Collateral Note: The patient came to the ED from [facility], qwrcp=[phone]. He presented to the ED with a medication list but no other information from [facility]. I called & spoke to Garrison who identified himself as a Tech. When asked why the patient was sent to the ED, he said one of the therapits did a mental health eval & felt that he wasn't safe to bealone. He had no other information why the therapist didn't feel that he was safe to be alone. I let him know that the patient was going [facility] be assessed medically [facility] due to his concern about his physical health (he has a history of heart issues). BOBBY Johnson Yee Powell PA-C - 04/11/2021 4:54 PM CDT [facility] Emergency Medicine Visit Note Chief Complaint: Chest Pain and CRISIS EVALUATION--ED Luisito Rainey is a 30 y.o. old male presents from inpatient treatment facility [facility]. Hestates he is chronically suicidal, no plan. He states he is here to have his SVT checked. He states he has bad anxiety and is worried about his heart and a lump in his neck for 2 months. Has been having daily palpitations and pain. Denies radiation. Denies weight loss or shortness of breath has been sober x 2 months In addition to the above, I have personally reviewed any medications, allergies, problem list, medical history, surgical history and social history in the health record as of this visit. Review of Systems A complete review of systems was performed and is otherwise negative. Triage Vitals [04/11/21 1646] Temp 98.1 ??F (36.7 ??C) Temp src Oral Pulse 87 Resp 20 BP (!) 154/106 SpO2 97 % Physical Exam Vitals and nursing note reviewed. Constitutional: Appearance: He is well-developed. HENT: Head: Normocephalic and atraumatic. Cardiovascular: Rate and Rhythm: Normal rate and regular rhythm. Heart sounds: Normal heart sounds. Pulmonary: Effort: Pulmonary effort is normal. Breath sounds: Normal breath sounds. Skin: General: Skin is warm and dry. Capillary Refill: Capillary refill takes less than 2 seconds. Neurological: General: No focal deficit present. Mental Status: He is alert. Psychiatric: Attention and Perception: Attention and perception normal. Mood and Affect: Mood is anxious. Speech: Speech normal. Behavior: Behavior is cooperative. Thought Content: Thought content is not paranoid or delusional. Thought content includes suicidal ideation. Thought content does not include homicidal ideation. Thought content does not include homicidal or suicidal plan. Cognition and Memory: Cognition and memory normal. Judgment: Judgment normal. MDM: Luisito Rainey is a 30 y.o. old male presenting with chronic SI, but here for wants his heart checked out history of SVT and anxiety . Nursing Note reviewed. A mental health team assessment was completed with the patient. A social media coordinator, patient's Nurse and me were all present for the team assessment. After assessing this patient, it is my opinion that the patient does not have the means and/orintent to carryout out their suicidal plan while in the ED. The patient will not require a safety watch. . Vital signs as above. Exam suggests a low likelihood of an infectious or metabolic cause of current condition. explosives worker consultation ordered. Based on initial physical exam and chart review lab work was indicated at this time. CBC, BMP, TSH troponin and ECG. Likely anxiety but will do work up if negative he can follow up with his flap presser. His lump is likely a lymphnode, will do labs (cbc) and tsh and follow up with PCP. Patient signed out pending Labs. ECG shows NSR without new ischemic appearing st or t wave changes. Arnaldo Rabago PA-C ED Course as of 04/11/211912 Tue Apr 11, [id number] Patient signed out pending Lab results. [JU] 1718 Sign out received, assumed care at this time. Pending labs and d/c back to [place]. [GT] 1903 Reviewed labs which is all in normal range. [GT] 1906 Updated patient. He is lying in bed cooperative, alert and oriented. Will f/u with his flap presser on 04/20/21 and speak to his PCP in regards to the lump in his neck and heart palpitations. [GT] ED Course User Index [GT] Yee Powell PA-C [JU] Arnaldo Rabago PA-C Clinical Impressions as of 04/11/211912 Heart palpitations Anxiety (HRC) documented in this encounter Plan of Treatment Not on filedocumented as of this encounter Procedures Procedure Name Priority Date/Time Associated Comments Diagnosis COMPLETE BLOOD COUNT-NO STAT 04/11/2021 5:05 R esults for this DIFF PM CDT procedure are i n the results section. TSH, SENSITIVE STAT 04/11/2021 5:04 Results fo r this PM CDT procedure are i n the results section. BASIC METABOLIC PANEL STAT 04/11/2021 5:04 Res ults for this PM CDT procedure are i n the results section. TROPONIN I STAT 04/11/2021 5:04 Results for this PM CDT procedure are i n the results section. [id number] ELECTROCARDIOGRAM STAT 04/11/2021 4:58 R esults for this TRACING PM CDT procedure are i n the results section. documented in this encounter Results Complete Blood Count no Diff (04/11/2021 5:05 PM CDT) athologist Signature WBC 8.3 3.5 - 10.5 04/11/2021 [facility] x10(9)/L 5:17 PM CDT HOSPITAL RBC 5.28 4.32 - 04/11/2021 [facility] 5.72 5:17 PM CDT HOSPITAL x10(12)/L Hemoglobin 16.0 13.5 - 04/11/2021 [facility] 17.5 g/dL 5:17 PM CDT HOSPITAL HCT 45.9 38.8 - 04/11/2021 [facility] 50.0 % 5:17 PM CDT HOSPITAL MCV 86.9 80.0 - 04/11/2021 [facility] 100.0 fL 5:17 PM CDT HOSPITAL MCH 30.3 27.6 - 04/11/2021 [facility] 33.3 pg 5:17 PM CDT HOSPITAL MCHC 34.9 31.5 - 04/11/2021 [facility] 35.2 g/dL 5:17 PM CDT HOSPITAL RDW 12.3 11.9 - 04/11/2021 [facility] 15.5 % 5:17 PM CDT HOSPITAL Platelets 238 150 - 450 04/11/2021 [facility] x10(9)/L 5:17 PM CDT HOSPITAL Automated NRBC 0 <=0 /100 04/11/2021 [facility] WBC 5:17 PM CDT HOSPITAL Specimen Anatomical Collection Method / Collection Time Recei shakeel Time (Source) Location / Volume Laterality Blood Venipuncture / 04/11/2021 5:05 04/11/2021 5:08 Unknown PM CDT PM CDT Arnaldo Rabago PA-C LAB_1 Performing Organization Address City/State/ZIP Code Phon e Number [address] [address] TSH (04/11/2021 5:04 PM CDT) athologist Signature TSH, Sensitive 1.19 0.30 - 04/11/2021 [facility] 4.50 6:25 PM CDT HOSPITAL uIU/mL Specimen Anatomical Collection Method / Collection Time Recei shakeel Time (Source) Location / Volume Laterality Blood Venipuncture / 04/11/2021 5:04 04/11/2021 5:08 Unknown PM CDT PM CDT Arnaldo Parker Gem FL[facility] LAB_1 Performing Organization Address City/[facility] e Number [address] [address] Troponin I (04/11/2021 5:04 PM CDT) athologist Signature Troponin I <0.01 0.00 - 0.03 04/11/2021 [facility] ng/mL 5:42 PM CDT HOSPITAL Specimen Anatomical Collection Method / Collection Time Recei shakeel Time (Source) Location / Volume Laterality Blood Venipuncture / 04/11/2021 5:04 04/11/2021 5:08 Unknown PM CDT PM CDT Arnaldo Parker Gem [facility] LAB_1 Performing Organization Address [facility] e [address] [address] Basic Metabolic Panel (04/11/2021 5:04 PM CDT) athologist Signature Sodium 138 136 - 145 04/11/2021 [facility] mmol/L 5:37 PM CDT HOSPITAL Potassium 4.0 3.5 - 5.1 04/11/2021 [facility] mmol/L 5:37 PM CDT HOSPITAL Chloride 104 98 - 109 04/11/2021 [facility] mmol/L 5:37 PM CDT HOSPITAL CO2 26 20 - 29 04/11/2021 [facility] mmol/L 5:37 PM CDT HOSPITAL Anion Gap 8 7 - 16 04/11/2021 [facility] mmol/L 5:37 PM CDT HOSPITAL Calcium 9.0 8.4 - 10.4 04/11/2021 [facility] mg/dL 5:37 PM CDT HOSPITAL BUN 13 7 - 26 04/11/2021 [facility] mg/dL 5:37 PM CDT HOSPITAL Creatinine 0.90 0.73 - 04/11/2021 [facility] 1.18 mg/dL 5:37 PM CDT HOSPITAL GFR, Estimated >60 >60 04/11/2021 [facility] mL/min/1.7 5:37 PM CDT HOSPITAL 3m2 Glucose 95 70 - 100 04/11/2021 [facility] mg/dL 5:37 PM CDT HOSPITAL Comment: The given reference range is fo r the fasting state. Non-fasting reference range for glucose is 70 - 180 mg/dL. Specimen Anatomical Collection Method / Collection Time Recei shakeel Time (Source) Location / Volume Laterality Blood Venipuncture / 04/11/2021 5:04 04/11/2021 5:08 Unknown PM CDT PM CDT Arnaldo Parker Gem FLORES LAB_1 Performing Organization Address [facility]/ZIP Code Phon e Number [facility] [address] [place] [address] ECG 12-Lead STAT (04/11/2021 4:58 PM CDT) P athologist Signature Ventricular Rate 63 BPM [facility] Atrial Rate 63 BPM [facility] P-R Interval 128 ms [facility] QRS Duration 94 ms [facility] QT 368 ms [facility] QTc 376 ms [facility] P [place] 23 degrees [facility] T [place] 44 degrees [facility] Specimen (Source) Anatomical Collection Method Collection Time Re ceived Time Location / / Volume Laterality 04/11/2021 4:58 PM CDT Narrative [facility] - 04/12/2021 8:02 AM CDT Sinus rhythm Normal ECG No previous ECGs available Confirmed by MD BANG SUVEER ([id number]) o n 04/12/2021 8:02:33 AM Procedure Note Nimo Bang MD - 04/12/2021Formatti ng of this note might be different from the original. Sinus rhythm Normal ECG No previous ECGs available Confirmed by MD BANG SUVEER ([id number]) o n 04/12/2021 8:02:33 AM Arnaldo Parker Gem [facility]OR[facility] EKG Performing Organization Address City/[facility]/ZIP [facility] Phon e Number [facility] [address] [place] [address] documented in this encounter Visit Diagnoses Diagnosis Heart palpitations - Primary Palpitations Anxiety (HRC) Anxiety state, unspecified Suicidal ideation Triage Assessment Note - Stephanie Carrillo RN - 04/11/2021 4:52 PM CDT Patient arrived by [facility] from [facility] with chief complaint: Chest pain with suicidal comments Symptoms/background (EMS narrative): Pt comes from the [facility] after feeling like hehas had chest pain and suicidal thoughts. EMS stated that a counselor stated that he hinted at having a plan Interventions/abnormal vitals: vss Additional patient report (what else the nurse finds out): pt is cooperative and polite. States he does not feel like his medical issues are being addressed at his day program. documented in this encounter Administered Medications Inactive Administered Medications - up to 3 most recent administrations Medication Order MAR Action Action Date Dose Rate Site nicotine (NICORETTE) gum 4 mg Given 04/11/2021 7:56 PM CDT 4 mg 4 mg, Buccal, ONCE, On Sat04/11/21 at 1930, For 1 dose, Patient to slowly chew and intermittently pack in cheek. Maximum of 12 pieces per day. Hazardous waste disposal required. documented in this encounter Active and Recently Administered Medications Times are shown in CDT. Scheduled Medication Order 04/09/2021 04/10/2021 04/11/2021 nicotine (NICORETTE) gum 4 mg (COMPLETED) 1955 (Given - Provider: Meseret Page RN) 4 mg, Buccal, ONCE, On Sat04/11/21 at 19 30, For 1 dose, Patient to slowly chew and intermittently pack in cheek. Maximum of 12 pieces per day. Hazardous waste disposal required. documented in this encounter Care Teams Continuum Of Care Manager Relationship Specialty Start Date End Date Found, No Pcp, PCP - General 04/11/21 [address] [place] [address] documented as of this encounter
--- OUTSIDE RECORDS SUMMARY | 2022-01-16 18:21 | XMS_ITS | Encounter Summary ---
:1990 Author Organization [facility] Address [address] [place] [address] Care Team Providers Name Role Phone Elsewhere, Pcp Primary Care Provider Unavailable Reason for Referral Outpatient (Routine) - Closed Specialty Diagnoses / Procedures Referred By Contact Refer red To Contact Diagnoses Tachycardia Supraventricular (HCC) Rodrigo Gray V., [facility] Procedures ECG Ambulatory Real Time Cardiac Monitoring Karley, Ph.D. [address] [place], [place] [phone] Referral ID Status Reason Start Date Expiration Date Visits Requ ested Visits Authorized [id number] Closed 08/08/2021 08/08/2022 1 1 MANAGER/ESTHETICIAN Reason for Visit Outpatient (Routine) - Closed Specialty Diagnoses / Procedures Referred By Contact Refer red To Contact Diagnoses Tachycardia Supraventricular (HCC) Rodrigo Gray V., [facility] Procedures ECG Ambulatory Real Time Cardiac Monitoring Karley, Ph.D. [address] [place] [phone] Referral ID Status Reason Start Date Expiration Date Visits Requ ested Visits Authorized [id number] Closed 08/08/2021 08/08/2022 1 1 Encounter Details Date Type Department Care Team Description 08/08/2021 [facility] [place], Tachycardia Encounter Cardiovascular Rodrigo Arias Supraventr icular (HCC) Diseases in Karley, Ph.D. [place], [place] [address] [facility] [address] [place] [phone] Social History Tobacco Use Types Packs/Day Years [...] er 07/18/2021 How often do you attend cheondoism or temple services? Never 07/18/2021 Do you belong to any clubs or organizations such as cheondoism N o 07/18/2021 groups, unions, fraternal or [...] or slept in a halfway (including now)? Education Answer Date Recorded What is the highest level of school you have GED or equivale nt 05/20/2021 completed or the highest degree you have received? Sex Assigned at Date Recorded Male 06/01/2020 11:57 AM SPA MANAGER/ESTHETICIAN documented as of this encounter Medications at [...] mouth at 0 03/01/20 21 tablet bedtime. [id number] Take 1 tablet by mouth 0 -minerals [...] Duration 0 sec duration INFOBIONIC MOME AF [place] 0% percent INFOBIONIC MOME VT Runs 0 count INFOBIONIC MOME SVT Runs 0 count INFOBIONIC MOME Symptom Count 136 count INFOBIONIC MOME Specimen (Source) Anatomical Collection Method Collection Time Re ceived Time Location / / Volume Laterality 08/09/2021 7:23 AM SPA MANAGER/ESTHETICIAN Narrative INFOBIONIC MOME - 09/20/2021 8:25 AM [...] rate varied from 74 to 170 BPM. Fire Prevention Research Engineer: APNCHO Wiggins/ PANCHO Lee Procedure Note Bernabe Johnson [...] rate varied from 74 to 170 BPM. Fire Prevention Research Engineer: PANCHO Wiggins/ PANCHO Lee Rodrigo Gray M.D., Ph.D. CV CARDIAC SERVICE S PROCEDURES Performing Organization Address City/State/ZIP Code Phon e Number INFOBIONIC MOME INFOBIONIC MOME NA documented in this encounter Visit Diagnoses Diagnosis Tachycardia Supraventricular (HCC) documented in this encounter Additional Health Concerns Assessment Noted Time PHQ-9 Depression Total Score: 11 09/09/2015 4:10 PM CD T documented as of this encounter Care Teams Cold Saw Operator Relationship Specialty Start Date End Date Elsewhere, Pcp PCP - General Internal Medicine 07/04/21 documented as of this encounter
--- OUTSIDE RECORDS SUMMARY | 2022-01-16 18:21 | XMS_ITS | Clinical Summary ---
:1990 [facility] Address [address] [place] [address] Care Team Providers Name Role Phone Found, No Pcp MD Primary Care Provider Unavailable Source Comments You are receiving this document as you are listed as the primary care provider,follow-up provider, or the patient has been referred to you for consultation.This is in compliance with the Medicare and Medicaid EHR Incentive Program,which states Providers who transition their patient to another setting of careor provider of care or refers their patient to another provider of care shouldprovide summarycare record for each transition of care or referral. [employer] Allergies Active Allergy Reactions Severity Noted Date Comments Ascorbate Unknown 01/12/2021 Bioflavonoids Unknown 01/12/2021 Cephalexin Unknown 01/12/2021 Choline Fenofibrate Unknown 01/12/2021 Inositol Unknown 01/12/2021 Kiwi Extract Anaphylaxis High 01/12/2021 Lemon Flavor Unknown 01/12/2021 Lemon Oil Unknown 01/12/2021 Kinta Flavor Unknown High 01/12/2021 Kinta Niacinamide Unknown 01/12/2021 Pantothenic Acid Unknown 01/12/2021 Pineapple Anaphylaxis High 01/12/2021 Pyridoxine Unknown 01/12/2021 Riboflavin Unknown 01/12/2021 Thiamine Unknown 01/12/2021 Vitamin B12 Unknown 01/12/2021 Medications Medication Sig Dispensed Refills Start Date End Date Status QUEtiapine Take 300 mg by 0 Acti ve (SEROQUEL) 100 MG mouth daily at tablet bedtime. gabapentin Take 300 mg by 0 Acti ve (NEURONTIN) 100 MG mouth two times a capsule day. metoprolol Take 25 mg by 0 Activ e succinate (TOPROL mouth two times a XL) 25 MG 24 hour day. release tablet metoprolol tartrate Take 25 mg by 0 Active (LOPRESSOR) 25 MG mouth two times tablet daily as needed for Other (heart palpatations). melatonin 5 MG Take 10 mg by 0 A ctive tablet mouth daily at bedtime. MAGNESIUM GLYCINATE Take 100 mg by 0 Active OR mouth daily. venlafaxine Take 1 Capsule by 30 Capsule 0 01/17/2021 01/18/20 22 Active (EFFEXORXR) 150 MG mouth daily. 24 hour release Future management capsule from primary psychiatry provider. OLANZapine Take 0.5-1 Tablets 15 Tablet 1 01/16/2021 Active (ZYPREXA) 2.5 MG by mouth every 4 tablet hours as needed for Other (Severe anxiety, agitation or psychosis.). Future management from primary psychiatry provider. 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 01/13/2021 DRAGAN (generalized anxiety disorder) 01/13/2021 Alcohol use disorder, mild, in early remission, abuse 01/13/2021 Benzodiazepine abuse 01/13/2021 Family History Medical History Relation Name Comments Mental Disorder Father No Known Problems Mother No Known Problems Brother No Known Problems Sister 1 No Known Problems Sister 2 Relation Name Status Comments Father Mother Alive Brother Alive Sister 1 Alive Sister 2 Alive Social History Tobacco Use Types Packs/Day Years Used Date Smoking Tobacco: Every Day Cigarettes 1 20 S tarted: 01/12/2001 Smokeless Tobacco: Current Snuff Tobacco Cessation: Counseling Given: Yes Alcohol Use Standard Drinks/Week Comments Never 0 [...] CDT Inhaled Oxygen Concentration - - Weight 75.7 kg (166 lb 12.8 oz) 01/12/2021 11:00 AM CDT Height 172.7 cm (5' 8) 01/12/2021 11:00 AM CDT Body Mass Index 25.36 01/12/2021 11:00 AM CDT Plan of Treatment Health Maintenance Due Date Last Done Comments HepB (1) 1990 COVID-19 Vaccine (#1) 03/13/1992 Pneumococcal (1 - PCV) 09/11/1997 HepA (2 of 2 - 2-dose 06/26/2007 12/24/2006 series) Adult Preventive Visit 09/11/2009 Influenza (#1) 2022 02/13/2017, 04/14/2009, 04/01/2008 DTaP/Tdap/Td (8 - Tdap) 07/18/2028 07/18/2018, 06/11/2013, 02/13/2005, Additional history exists Zoster/Shingles (1 of 2) 09/11/2041 MCV4 Aged Out 12/24/2006 No longer eligib le based on patient 's age to complete this topic HPV Vaccine Completed 07/03/2010, 02/15/2010, 11/29/2009 HIV Screening (Preventive Completed 01/15/2021 Services) Hep C Screening (Preventive Completed 01/15/2021 Services) Hib Aged Out No longer eligib le based on patient 's age to complete this topic IPV (Polio) Aged Out No longer eligib le based on patient 's age to complete this topic Insurance Payer Benefit Plan / Subscriber ID Effective Dates Phone Addre ss Type Group BCBS BCBS OUT OF [id number] 2019-Present [address] [address] [place] [address] [address] (Home) [address] [address] Luisito Rainey Personal/Family Self 1990 [address] (Home) [address] [place] [address] Luisito Rainey Personal/Family Self 1990 [address] (Home) [address] [facility] [place] [address] Advance Directives Latest Code Status on File Code Status Date Activated Date Inactivated Comments Full Code 01/12/2021 10:57 AM 01/16/2021 4:39 PM Care Teams Vessel Operator Relationship Specialty Start Date End Date Found, No Pcp, PCP - General 04/11/21 [address] [place] [address]
--- OUTSIDE RECORDS SUMMARY | 2022-01-16 18:21 | XMS_ITS | Encounter Summary ---
:1990 Author Organization [facility] Address [address] [place] [address] Care Team Providers Name Role Phone Unavailable [...]
--- OUTSIDE RECORDS SUMMARY | 2022-01-16 18:21 | XMS_ITS | Encounter Summary ---
:1990 Author Organization [facility] Address [address] [place] [address] Care Team Providers Name Role Phone Unavailable [...]
--- OUTSIDE RECORDS SUMMARY | 2022-01-16 18:21 | XMS_ITS | Encounter Summary ---
:1990 Author Organization [facility] Address [address] [place] [address] Care Team Providers Name Role Phone Elsewhere, Pcp Primary Care Provider Unavailable Reason for Visit Reason Comments Results Encounter Details Date Type Department Care Team Description 07/07/2021 Clinical Department of [place], Results Communication Cardiovascular Rodrigo Arias, Medicine in [place], Karley, Ph. D. [address] [place] [id number] [phone] Social History Tobacco Use Types Packs/Day Years [...] er 07/18/2021 How often do you attend gnosticist or confucianist services? 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 - 07/07/2021 5:[address] Donald said he would call Mr. Rainey to discuss further. ENTICE ELECTRICIAN Telephone Encounter - Sameera Luong - 07/07/2021 3:56 PM CST SUBJECTIVE CHIEF COMPLAINT / REASON FOR CALL Results Name of caller: Luisito Rainey (patient) Patient expects communication via portal: No Phone number: [phone] Test Results Goal or summary: Mr. Rainey [...] case. He would appreciate a callback YASSINE ENTICE ELECTRICIAN documented in this encounter Plan of Treatment Not on filedocumented as of this encounter Visit Diagnoses Not on filedocumented in this encounter Additional Health Concerns Assessment Noted Time PHQ-9 Depression Total Score: 11 09/09/2015 4:10 PM CD T documented as of this encounter Care Teams Human Resources Talent Manager Relationship Specialty Start Date End Date Elsewhere, Pcp PCP - General Internal Medicine 07/04/21 documented as of this encounter
--- OUTSIDE RECORDS SUMMARY | 2022-01-16 18:21 | XMS_ITS | Encounter Summary ---
:1990 Author Organization [facility] Address [address] [place] [address] Care Team Providers Name Role Phone Elsewhere, Pcp Primary Care Provider Unavailable Encounter Details Date Type Department Care Team Description 09/22/2021 Clinical Communication Department of Lorin Rodriguez Cardiovascular Medicine Aidee, Kilo in [facility] [address] [facility] [address] [place] [phone] Social History Tobacco Use Types Packs/Day Years [...] er 07/18/2021 How often do you attend catholic or anabaptism services? 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 documented in this encounter Plan of Treatment Not on filedocumented as of this encounter Visit Diagnoses Not on filedocumented in this encounter Additional Health Concerns Assessment Noted Time PHQ-9 Depression Total Score: 11 09/09/2015 4:10 PM CD T documented as of this encounter Care Teams Emergency Services Director Relationship Specialty Start Date End Date Elsewhere, Pcp PCP - General Internal Medicine 07/04/21 documented as of this encounter
--- OUTSIDE RECORDS SUMMARY | 2022-01-16 18:21 | XMS_ITS | Clinical Summary ---
:1990 Author Organization [facility] Address [address] [place] [address] Care Team Providers Name Role Phone Elsewhere, Pcp Primary Care Provider Unavailable Source Comments Patient records contain information from all sites at [facility]. For routine questions regarding patient records, call [phone] during business hours, M-F 8:00 AM - 5:00 PM Central Time. Record requests for emergency care only can be directed to [phone] at any time.[facility] Allergies Active Allergy Reactions Severity Noted Date [...] (see comments) Medium 01/21/2019 Cold so res [place] Other (see comments) 03/20/2003 [place] Anaphylaxis High 12/18/2013 [place] Flavor Other (see comments) High 01/12/2021 [place] Multivitamin With Other (see comments) 09/05/2012 CO LD SORE REACTION Iron,Other Minerals TO VARIOUS/NUMEROU S Niacinamide Other (see comments) Medium 01/21/2019 Cold so res [place] Other (see comments) 03/21/2003 Pantothenic Acid Other (see comments) Medium 01/21/2019 Col d sores [place] Anaphylaxis High 06/01/2020 Pyridoxine Other (see comments) Medium 01/21/2019 Cold so res Riboflavin (Vitamin B2) Other (see comments) Medium 9 Cold sores [place] Other (see comments) 03/20/2003 Thiamine (Vitamin B1) Other (see comments) Medium 01/21/2019 Cold sores Medications Medication Sig Dispensed Refills Start Date End Date Status oxwruvcasdhf-Le-b Take 1 tablet by 0 03/08/2021 Active [...] er 07/18/2021 How often do you attend roman catholic or anglican services? 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 Vital Signs Vital Sign Reading Time Taken Comments Blood Pressure 98/43 07/07/2021 12:45 PM OPERATOR CATALYST CONCENTRATION Pulse 101 07/07/2021 12:45 PM OPERATOR CATALYST CONCENTRATION Temperature 36.9 ??C (98.5 ??F) 07/07/2021 7:18 AM OPERATOR CATALYST CONCENTRATION Respiratory Rate 14 02/07/2021 4:14 AM CDT Oxygen Saturation 100% 07/07/2021 12:45 PM OPERATOR CATALYST CONCENTRATION Inhaled Oxygen Concentration - - Weight 83 kg (182 lb 15.7 oz) 07/06/2021 1:55 PM OPERATOR CATALYST CONCENTRATION Height 172 cm (5' 7.72) 07/06/2021 1:55 PM OPERATOR CATALYST CONCENTRATION Body Mass Index 28.06 07/06/2021 1:55 PM OPERATOR CATALYST CONCENTRATION Plan of Treatment Health Maintenance Due Date [...] Type Group [employer] [place] [id number] 2019-Presen [phone] [address] [address] PPO [facility] [address] [place] [address] Care Teams Senior Director Finance Relationship Specialty Start Date End Date Elsewhere, Pcp PCP - General Internal Medicine 07/04/21
--- OUTSIDE RECORDS SUMMARY | 2022-01-16 18:21 | XMS_ITS | Encounter Summary ---
:1990 Author Organization [facility] Address [facility] [place] [address] Care Team Providers Name Role Phone Unavailable Primary Care Provider Unavailable Encounter Details Date Type Department Care Team Description 08/20/2015 Telephone [facility] Gisele Agrawal, RN [address] [place] [address] Social History Tobacco Use Types Packs/Day [...] reality, disturbed ability to think, perceive and polytechnic registrar clearly. ? NO Previously evaluated and worsening [...] if symptoms worsen or new symptoms develop. DENTIAL ASSISTANT documented in this encounter Plan of Treatment Not on filedocumented as of this encounter Visit Diagnoses Not on filedocumented in this encounter
--- OUTSIDE RECORDS SUMMARY | 2022-01-16 18:21 | XMS_ITS | Encounter Summary ---
:1990 Author Organization [facility] Address [address] [place] [address] Care Team Providers Name Role Phone Unavailable Primary Care Provider Unavailable Encounter Details Date Type Department Care Team Description 02/27/2003 Hospital Encounter HX NO MAPPING Social History Tobacco Use Types Packs/Day Years [...] How often do you attend sabianism or mormon services? Never 07/18/2021 Do you [...] place to sleep or slept in a [facility]cc (including now)? 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
--- OUTSIDE RECORDS SUMMARY | 2022-01-16 18:21 | XMS_ITS | Clinical Summary ---
:1990 Author Organization [facility] Address [address] [place] [address]. [place] [address] Care Team Providers Name Role Phone No Ref-Primary, Physician Primary Care Provider [phone] Allergies Active Allergy Reactions Severity Noted [...] ss Type Group BCBS BCBS OUT OF [id number] 2020-Present [phone] [address] [address] [place] [address] Care Teams Heel Seat Filler Relationship Specialty Start Date End Date No Ref-Primary, Physician PCP - General 03/15/21
--- OUTSIDE RECORDS SUMMARY | 2022-01-16 18:21 | XMS_ITS | Encounter Summary ---
:1990 Author Organization [facility] Address [address] [place] [address]. [place] [address] Care Team Providers Name Role Phone Unavailable Primary Care Provider Unavailable Reason for Visit Reason Onset Date Comments Medication Question 12/18/2020 Encounter Details Date Type Department Care Team Description 12/18/2020 Telephone [facility] Nurse Gerry Winchester, behavior therapist [facility] [address] [place] [address] Social History Tobacco Use Types Packs/Day [...] Pt called to report they see a benefits counselor at [facility] Dr. Palacio who put the pt on a new heart medication called Corlanor which can lower heart rate. Pt also takes propanolol and is planning to take their dose tonight but is not sure if they can take this together with the new medication. Pt's current heart rate is 117 BPM due pt being anxious. Action: Medical Record Librarian unsure if pt is able to take [...] care. Gerry Winchester RN 12/18/2020 8:00 PM [facility] Nurse Advisor COVID 19 Nurse Triage Plan/Patient Instructions Please be aware that novel coronavirus (COVID-19) may be circulating in the community. If you develop symptoms such as fever, cough, or SOB or if you have concerns about the presence of another infection including coronavirus (COVID- 19), please contact your health care provider or visit [email or web address] .[email or web address]. Disposition/Instructions Additional COVID19 information to add for [...] full list on the EPA website: www.epa.gov/pesticide-registration/ oyfa-o-yzrjeackrccxn-mth-ppcsalv-bxxw-cov-2. ??? Cover your mouth and nose with a mask, tissue or washcloth to avoid spreading germs. ??? Wash your hands and face often. Use soap and water. ??? Caregivers in these groups are at risk for severe illness due to COVID-19: o People 65 years and older o People who live in a fpc or long-term care facility o People with [...] found in many medicines (both prescribed and lusp-jyv-aiivult medicines). Read all labels to be sure [...] it can live on surfaces. ?? Common life specialist (household disinfectants) will kill the virus. Who is at risk? Anyone can catch COVID-19 if they???re around someone who has the virus. How can others protect themselves? ?? Stay away from people who have COVID-19 (or symptoms of COVID-19). ?? Wash hands often with soap and water. Or, use hand medieval english literature professor with at least 60% alcohol. ?? Avoid touching the eyes, nose or mouth. ?? Wear a face mask when you go out in public, when sick or when caring for a sick person. Where can I get more information? [facility]: About COVID-19: [email or web address] ??? CDC: What to Do If You???re Sick: www.cdc.gov/coronavirus/2019-ncov/about/dnyyn-vsak-tcex.html ??? CDC: Ending Home Isolation: www.cdc.gov/coronavirus/2019-ncov/hcp/obomgjgalhf-hk-ebfg-patients.html ??? CDC: Caring for Someone: www.cdc.gov/coronavirus/2019-ncov/bs-zze-xhy-sick/fpbx-ahg-hrpisqq.html ??? MD: Interim Guidance for Hospital Discharge to Home: www.health[facility]/diseases/coronavirus/hcp/hospdischarge.pdf ??? [facility] clinical trials (COVID-19 research studies): clinicalaffairs.[facility]/enn-tyyydvxd-womgzv ??? Below are the COVID-19 hotlines at the Psychiatric hospital ([facility]). Interpreters are available. o For health questions: Call [phone] or (7 a.m. to 7 p.m.) o For questions about schools and childcare: Call [phone] or (7 a.m. to 7 p.m.) Thank you for taking steps to prevent the spread of this virus. o Limit your contact with others. o Wear a simple mask to cover your cough. o Wash your hands well and often. Resources ??? [facility]: About COVID-19: [email or web address] ??? CDC: What to Do If You're Sick: www.cdc.gov/coronavirus/2019-ncov/about/jkywp-awty-zpax.html ??? CDC: Ending Home Isolation: www.cdc.gov/coronavirus/2019-ncov/hcp/ubfaqfymshu-vy-ptxj-patients.html ??? CDC: Caring for Someone: www.cdc.gov/coronavirus/2019-ncov/ql-epn-yrt-sick/jldv-pbh-qutypcf.html ??? [facility]: Interim Guidance for Hospital Discharge to Home: www.[facility]./diseases/coronavirus/hcp/hospdischarge.pdf ??? [facility] clinical trials (COVID-19 research studies): clinicalaffairs.[facility]/zac-arniewjy-yzumyc ??? Below are the COVID-19 hotlines at the Psychiatric hospital ([facility]). Interpreters are available. o For health questions: Call [phone] or (7 a.m. to 7 p.m.) o For questions about schools and childcare: Call [phone] or (7 a.m. to 7 p.m.) documented in this encounter Plan of Treatment Not on filedocumented as of this encounter Visit Diagnoses Not on filedocumented in this encounter
--- OUTSIDE RECORDS SUMMARY | 2022-01-16 18:21 | XMS_ITS | Encounter Summary ---
:1990 Author Organization [facility] Address [address] [place] [address] Care Team Providers Name Role Phone No Ref-Primary, Physician Primary Care Provider [phone] Encounter Details Date Type Department Care [...] on filedocumented in this encounter Care Teams Senior Manufacturing Technician Relationship Specialty Start Date End Date No Ref-Primary, Physician PCP - General 03/15/21 documented as of this encounter
--- OUTSIDE RECORDS SUMMARY | 2022-01-16 18:21 | XMS_ITS | Encounter Summary ---
:1990 Author Organization [facility] Address [address] [place] [address] Care Team Providers Name Role Phone Unavailable Primary Care Provider Unavailable Encounter Details Date Type Department Care Team Description 10/03/2016 Telephone [facility] June Law, RN [address] [place] [address] Social History Tobacco Use Types Packs/Day [...] and or prescribing MD. 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 He stated that he [...]
--- OUTSIDE RECORDS SUMMARY | 2022-01-16 18:21 | XMS_ITS | Encounter Summary ---
:1990 Author Organization [place] Address [address] [place] [address] Care Team Providers Name Role Phone No Ref-Primary, Physician Primary Care Provider [phone] Reason for Visit Reason Comments Chest Pain Encounter Details Date Type Department Care Team Description 03/15/2021 Emergency [facility] Arnaldo Gutierrez MD Chest pain, non-cardiac; [place] [facility] [address] [facility] Tach yarrhythmia Dept ER [address] [place] [address] [place], [place] [phone] (Work) [phone] Social History Tobacco Use Types Packs/Day Years [...] arrhythmia, you should schedule follow-up with an sharemilker. documented in this encounter Medications at Time [...] Pt presents to ED via EMS from [facility]. Pt reports CP that started today at 1100. Pt states pain midsternal and was not brought on by any precipitating factors. Pt reports pain has been intermittent stabbing pain. Pt c/o palpitations and fluttering in chest. Nelly Blank RN - 03/15/2021 1:20 PM CDT Bed: ED04 Expected date: Expected time: Means of arrival: Comments: [facility] Arnaldo Gutierrez MD - 03/15/2021 1:20 PM CDT History Chief Complaint Patient presents with ??? Chest Pain HPI Luisito Rainey is a 30 year old male who comes in from [facility] because of chest pain. He describes today [...] May 26, 2019. He follows with a stem setter up in [place] where he is from. He has a history of ADHD and anxiety. He is Covid vaccinated. He has not had Covid infection. He has been at [facility] for 9 days for benzodiazepine abuse but [...] Course Procedures EKG Interpretation: Interpreted by Arnaldo Gtuierrez MD Time reviewed: 13:54 Symptoms at time of EKG: none Rhythm: normal sinus Rate: normal [place]: normal Ectopy: none Conduction: normal ST Segments/ T Waves: No ST-T wave changes Q Waves: none Comparison to prior: No old EKG available Clinical Impression: normal EKG Critical Care time: none Results for orders placed or performed during the hospital encounter of 03/15/21 (from the past 24 hour(s)) [employer] Draw Narrative The following orders were created for panel order [employer] Draw. Procedure Abnormality Status --------- ------ Extra Blue Top Tube[[id number]] Final result Extra Red Top Tube[[id number]] Final result Extra Green Top ([place]...[[id number]] Final result Extra Green Top ([place]...[[id number]] Final result Extra Purple Top Tube[[id number]] Final result Please view results for these tests on the individual orders. CBC with platelets differential Narrative The following orders were created for panel order CBC with platelets differential. Procedure Abnormality Status --------- ------ CBC with platelets and d...[[id number]] Abnormal Final result Please view results for [...] Range Hold Specimen JIC Extra Green Top ([place] Heparin) Tube Result Value Ref Range Hold Specimen JIC Extra Green Top ([place] Heparin) Tube Result Value Ref Range Hold [...] (with Medical Decision Making) 30-year-old male at [facility] for benzodiazepine dependence presented with chest [...] He can safely return to treatment at [facility]. He should schedule follow-up with electrophysiology regarding the tachyarrhythmia. I have reviewed the nursing notes. I have reviewed the findings, diagnosis, plan and need for follow up with the patient. New Prescriptions No medications on file Final diagnoses: Chest pain, non-cardiac Tachyarrhythmia 03/15/2021 [facility] Arnaldo Gutierrez MD 03/15/21 1605 [...] is unremarkable. BRENDA FELTON MD SYSTEM ID: ??[id number] Narrative 03/15/2021 4:26 PM CDT CHEST TWO VIEWS 03/15/2021 3:31 PM HISTORY: Chest pain. COMPARISON: None. Procedure Note Brenda Felotn MD - 03/15/2021Fo rmatting of this note might be different from the original. CHEST TWO VIEWS 03/15/2021 3:31 PM HISTORY: Chest pain. COMPARISON: None. IMPRESSION: No pneumothorax. There are n o acute infiltrates. The cardiac silhouette is not enlarged. Pulm onary vasculature is unremarkable. BRENDA FELTON MD SYSTEM ID: [id number] Arnaldo Gutierrez MD IMG DIAGNOSTIC IMAGING ORDER ELIZA (ABNORMAL) CBC with platelets and differential (03/15/2021 2:05 PM CDT) [facility] Method Time Signature WBC Count 11.1 (H) 4.0 - 03/15/2021 [facility] 11.0 2:20 PM CDT 10e3/uL RBC Count 5.15 4.40 - 03/15/2021 [facility] 5.90 2:20 PM CDT 10e6/uL Hemoglobin 16.1 13.3 - 03/15/2021 [facility] 17.7 g/dL 2:20 PM CDT Hematocrit 45.9 40.0 - 03/15/2021 [facility] 53.0 % 2:20 PM CDT MCV 89 78 - 100 03/15/2021 [facility] fL 2:20 PM CDT MCH 31.3 26.5 - 03/15/2021 [facility] 33.0 pg 2:20 PM CDT MCHC 35.1 31.5 - 03/15/2021 [facility] 36.5 g/dL 2:20 PM CDT RDW 12.2 10.0 - 03/15/2021 [facility] 15.0 % 2:20 PM CDT Platelet Count 226 150 - 450 03/15/2021 [facility] 10e3/uL 2:20 PM CDT % Neutrophils 77 % 03/15/2021 [facility] 2:20 PM CDT % Lymphocytes 14 % 03/15/2021 [facility] 2:20 PM CDT % Monocytes 7 % 03/15/2021 [facility] 2:20 PM CDT % Eosinophils 1 % 03/15/2021 [facility] 2:20 PM CDT % Basophils 1 % 03/15/2021 [facility] 2:20 PM CDT % Immature 0 % 03/15/2021 [facility] Granulocytes 2:20 PM CDT NRBCs per 100 0 <1 /100 03/15/2021 [facility] WBC 2:20 PM CDT Absolute 8.6 (H) 1.6 - 8.3 03/15/2021 [facility] Neutrophils 10e3/uL 2:20 PM CDT Absolute 1.5 0.8 - 5.3 03/15/2021 [facility] Lymphocytes 10e3/uL 2:20 PM CDT Absolute 0.8 0.0 - 1.3 03/15/2021 [facility] Monocytes 10e3/uL 2:20 PM CDT Absolute 0.2 0.0 - 0.7 03/15/2021 [facility] Eosinophils 10e3/uL 2:20 PM CDT Absolute 0.1 0.0 - 0.2 03/15/2021 [facility] Basophils 10e3/uL 2:20 PM CDT Absolute 0.1 (H) <=0.0 03/15/2021 [facility] Immature 10e3/uL 2:20 PM CDT Granulocytes Absolute NRBCs 0.0 10e3/uL 03/15/2021 [facility] 2:20 PM CDT Specimen Anatomical Collection Method / Collection Time Recei shakeel Time (Source) Location / Volume Laterality Blood VENOUS LINE / Venipuncture / 03/15/2021 2:05 2:10 Unknown Unknown PM CDT PM CDT Arnaldo Gutierrez MD LAB - BLOOD ORDERABLES Performing Organization Address City/[facility]/[place] [address] [phone] [facility] [address] [place] [address], [facility] [phone] Acute Care Lab [address] [place] [address] Room [address] Extra Purple Top Tube (03/15/2021 2:05 PM CDT) athologist Signature Hold Specimen [facility] 03/15/2021 [facility] 3:18 PM CDT Specimen Anatomical Collection Method / Collection Time Recei shakeel Time (Source) Location / Volume Laterality Blood VENOUS LINE / Venipuncture / 03/15/2021 2:05 1 2:10 Unknown Unknown PM CDT PM CDT Arnaldo Gutierrez MD LAB - BLOOD ORDERABLES Performing Organization Address City/[facility]/[place] [address] [phone] Acute Care Lab [address] [place] [address], [facility] [phone] Acute Care Lab [address] Extra Green Top ([place] Heparin) Tube (03/15/2021 2:05 PM CDT) athologist Signature Hold Specimen [facility] 03/15/2021 [facility] 3:18 PM CDT Specimen Anatomical Collection Method / Collection Time Recei shakeel Time (Source) Location / Volume Laterality Blood VENOUS LINE / Venipuncture / 03/15/2021 2:05 1 2:10 Unknown Unknown PM CDT PM CDT Arnaldo Gutierrez MD LAB - BLOOD ORDERABLES Performing Organization Address City/[facility]/[place] [address] Acute Care Lab [address] [place] [address] [place] [address], [facility] [phone] Acute Care Lab [address] Extra Green Top ([place] Heparin) Tube (03/15/2021 2:05 PM CDT) athologist Signature Hold Specimen JI 03/15/2021 [facility] 3:18 PM CDT Specimen Anatomical Collection Method / Collection Time Recei shakeel Time (Source) Location / Volume Laterality Blood VENOUS LINE / Venipuncture / 03/15/2021 2:05 1 2:10 Unknown Unknown PM CDT PM CDT Arnaldo Gutierrez MD LAB - BLOOD ORDERABLES Performing Organization Address City/[facility]/ZIP [facility] [place] [address] Acute Care Lab [address] [place] [address]. Room # 2186 [place] [address], [facility] [phone] Acute Care Lab [address] [place] [address]. Room # 2186 Extra Red Top Tube (03/15/2021 2:05 PM CDT) athologist Signature Hold Specimen [facility] 03/15/2021 [facility] 3:18 PM CDT Specimen Anatomical Collection Method / Collection Time Recei shakeel Time (Source) Location / Volume Laterality Blood VENOUS LINE / Venipuncture / 03/15/2021 2:05 1 2:10 Unknown Unknown PM CDT PM CDT Arnaldo Gutierrez MD LAB - BLOOD ORDERABLES Performing Organization Address City/[facility]/[place] [address] Acute Care Lab [address] [place] [address]. Room # 2[address] [place] [address], [facility] [phone] Acute Care Lab [address] [place] [address]. Room # 2186 Extra Blue Top Tube (03/15/2021 2:05 PM CDT) athologist Signature Hold Specimen JI 03/15/2021 [facility] 3:18 PM CDT Specimen Anatomical Collection Method / Collection Time Recei shakeel Time (Source) Location / Volume Laterality Blood VENOUS LINE / Venipuncture / 03/15/2021 2:05 1 2:10 Unknown Unknown PM CDT PM CDT Arnaldo Gutierrez MD LAB - BLOOD ORDERABLES Performing Organization Address City/[facility] [place] [address] Acute Care Lab [address] [place] [address]. Room # 2186 [place] [address], [facility] [phone] Acute Care Lab [address] [place] [address]. Room # 2186 Nt probnp inpatient (BNP) (03/15/2021 2:05 PM CDT) athologist Signature N terminal Pro 19 0 - 450 03/15/2021 [facility] BNP Inpatient pg/mL 2:36 PM CDT [...] LAB - BLOOD ORDERABLES Performing Organization Address City/[facility]/[place] [address] Acute Care Lab [address] [place] [address]. Room # 2186 [place] [address], [facility] [phone] Acute Care Lab [address] [place] [address]. Room # 2186 Troponin I (03/15/2021 2:05 PM CDT) athologist Signature Troponin I <0.015 0.000 - 03/15/2021 [facility] 0.045 ug/L 2:36 PM CDT Comment: [...] LAB - BLOOD ORDERABLES Performing Organization Address [facility]/ZIP [facility] [place] [address] Acute Care Lab [address] [place] [address]. Room # 2186 [place] [address], [facility] [phone] Acute Care Lab [address] [place] [address]. Room # 2186 Lipase (03/15/2021 2:05 PM CDT) athologist Signature Lipase 132 73 - 393 U/L 03/15/2021 [facility] 2:27 PM CDT Specimen Anatomical Collection Method / Collection Time Recei shakeel Time (Source) Location / Volume Laterality Blood VENOUS LINE / Venipuncture / 03/15/2021 2:05 1 2:10 Unknown Unknown PM CDT PM CDT Arnaldo Gutierrez MD LAB - BLOOD ORDERABLES Performing Organization Address [facility]/[place] [address] Acute Care Lab [address] [place] [address]. Room # 2186 [place] [address], [facility] [phone] Acute Care Lab [address] [place] [address]. Room # 2186 Comprehensive metabolic panel (03/15/2021 2:05 PM CDT) P athologist Signature Sodium 137 133 - 144 03/15/2021 [facility] mmol/L 2:33 PM CDT Potassium 3.8 3.4 - 5.3 03/15/2021 [facility] mmol/L 2:33 PM CDT Chloride 107 94 - 109 03/15/2021 [facility] mmol/L 2:33 PM CDT Carbon Dioxide 25 20 - 32 03/15/2021 [facility] (CO2) mmol/L 2:33 PM CDT Anion Gap 5 3 - 14 03/15/2021 [facility] mmol/L 2:33 PM CDT Urea Nitrogen 9 7 - 30 03/15/2021 [facility] mg/dL 2:33 PM CDT Creatinine 0.79 0.66 - 03/15/2021 [facility] 1.25 mg/dL 2:33 PM CDT Calcium 9.1 8.5 - 10.1 03/15/2021 [facility] mg/dL 2:33 PM CDT Glucose 90 70 - 99 03/15/2021 [facility] mg/dL 2:33 PM CDT Alkaline 103 40 - 150 03/15/2021 [facility] Phosphatase U/L 2:33 PM CDT AST 19 0 - 45 U/L 03/15/2021 [facility] 2:33 PM CDT ALT 34 0 - 70 U/L 03/15/2021 [facility] 2:33 PM CDT Protein Total 7.6 6.8 - 8.8 03/15/2021 [facility] g/dL 2:33 PM CDT Albumin 3.9 3.4 - 5.0 03/15/2021 [facility] g/dL 2:33 PM CDT Bilirubin Total 0.2 0.2 - 1.3 03/15/2021 [facility] mg/dL 2:33 PM CDT GFR Estimate >90 >60 03/15/2021 [facility] mL/min/1.7 2:33 PM CDT 3m2 Comment: [...] Organization Address City/State/[place] [address] [phone] Acute Care Lab [address] [place] [address]. Room # 2186 [place] [address], [facility] [phone] Acute Care Lab [address] [place] [address]. Room # 2186 D dimer quantitative (03/15/2021 2:05 PM CDT) Analysis Performed At Patho logist Time Signature D-Dimer 0.27 0.00 - 03/15/2021 [facility] Quantitative 0.50 ug/mL 2:23 PM CDT FEU Specimen Anatomical Collection Method / Collection Time Recei shakeel Time (Source) Location / Volume Laterality Blood VENOUS LINE / Venipuncture / 03/15/2021 2:05 2:10 Unknown Unknown PM CDT PM CDT Narrative [facility] - 03/15/2021 2:23 PM CDT This D-dimer assay is intended for use i n conjunction with a clinical pretest probability assessment model to exclude pulmonary embolism (PE) and deep venous thrombosis (DVT) in outpatients suspecte d of PE or DVT. The cut-off value is 0.50 ug/mL FEU. Arnaldo Gutierrez MD LAB - BLOOD ORDERABLES Performing Organization Address City/State/[place] [address] [phone] Acute Care Lab [address] [place] [address]. Room # 2186 [place] [address], [facility] [phone] Acute Care Lab [address] [place] [address]. Room # 2186 EKG 12-lead, tracing only [...] dose documented in this encounter Care Teams Supervisor Cereal Relationship Specialty Start Date End Date No Ref-Primary, Physician PCP - General 03/15/21 documented as of this encounter
--- OUTSIDE RECORDS SUMMARY | 2022-01-16 18:21 | XMS_ITS | Encounter Summary ---
:1990 Author Organization [place] Address [address] [place] [address] Care Team Providers Name Role Phone Unavailable Primary Care Provider Unavailable Encounter Details Date Type Department Care Team Description 09/25/2015 Telephone [facility] rse Advisors Yessenia Potts, RN [address] [place] [address] Social History Tobacco Use Types Packs/Day [...]
--- OUTSIDE RECORDS SUMMARY | 2022-01-16 18:21 | XMS_ITS | Encounter Summary ---
:1990 Author Organization [facility] Address [address] [place] [address] Care Team Providers Name Role Phone Unavailable Primary Care Provider Unavailable Encounter Details Date Type Department Care Team Description 03/20/2003 Hospital Encounter HX NO MAPPING Social History [...] er 07/18/2021 How often do you attend baptist or protestant services? Never 07/18/2021 Do you belong to any clubs or organizations such as baptist N o 07/18/2021 groups, unions, fraternal or [...] place to sleep or slept in a care home (including now)? 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
--- OUTSIDE RECORDS SUMMARY | 2022-01-16 18:21 | XMS_ITS | Encounter Summary ---
:1990 Author Organization [place] Address [address] [place] [address]. [place] [address] Care Team Providers Name Role Phone No Ref-Primary, Physician Primary Care Provider [phone] Reason for Visit Reason Onset Date Comments Pt. Information/instruction 11/30/2018 Encounter Details Date Type Department Care Team Description 11/30/2018 Telephone [facility] Nurse Lilian Barron , Pt. Advisors RN Information/instruction [address] [address] Social History Tobacco Use Types Packs/Day [...] to be called on Saturday am, at: [phone]. RN then left this message in [facility], as requested. Lilian Barron RN [place] [facility] [phone] documented in this encounter Plan of Treatment Not on filedocumented as of this encounter Visit Diagnoses Not on filedocumented in this encounter Care Teams Test And Turn Up Technician Relationship Specialty Start Date End Date No Ref-Primary, Physician PCP - General 03/15/21 documented as of this encounter
--- OUTSIDE RECORDS SUMMARY | 2022-01-16 18:21 | XMS_ITS | Encounter Summary ---
:1990 Author Organization [facility] Address [address] [place] [address] Care Team Providers Name Role Phone Elsewhere, Pcp Primary Care Provider Unavailable Reason for Referral Outpatient (Routine) - Closed Specialty Diagnoses / Procedures Referred By Contact Refer red To Contact Diagnoses Tachycardia Supraventricular (HCC) Rodrigo Gray V., [facility] Procedures ECG Event Recorder Karley, Ph.D. [address] [place] [phone] Referral ID Status Reason Start Date Expiration Date Visits Requ ested Visits Authorized [id number] Closed 07/10/2021 07/10/2022 1 1 WARE PACKAGING ENGINEER Reason for Visit Outpatient (Routine) - Closed Specialty Diagnoses / Procedures Referred By Contact Refer red To Contact Diagnoses Tachycardia Supraventricular (HCC) Rodrigo Gray V., [facility] Procedures ECG Event Recorder Karley, Ph.D. [address] [place] [address] [phone] Referral ID Status Reason Start Date Expiration Date Visits Requ ested Visits Authorized [id number] Closed 07/10/2021 07/10/2022 1 1 Encounter Details Date Type Department Care Team Description 07/10/2021 [facility] [place], Tachycardia Encounter Cardiovascular Rodrigo Arias Supraventr icular (HCC) Diseases in Karley, Ph.D. [place], [place] [address] [facility] [address] [place] [phone] Social History Tobacco Use Types Packs/Day Years [...] How often do you attend anabaptist or mandaen services? Never 07/18/2021 Do you [...] slept in a care home (including now)? Education Answer Date Recorded What is the highest level of school you have GED or equivale nt 05/20/2021 completed or the highest degree you have received? 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 [id number] Take 1 tablet by mouth 0 -minerals [...] Results f or this ALL CHARGES AM SOFTWARE PACKAGING ENGINEER Supraventricular (HCC) proce dure are in the results section. documented in this encounter Results EVENT MONITOR - ALL CHARGES (07/06/2021 6:30 AM SOFTWARE PACKAGING ENGINEER) Specimen (Source) Anatomical Collection Method Collection Time Re ceived Time Location / / Volume Laterality 07/12/2021 1:51 PM SOFTWARE PACKAGING ENGINEER Narrative [facility] - 07/13/2021 8:41 AM SOFTWARE PACKAGING ENGINEER 1. The patient was monitored from 06/01/2021 [...] to 150 BPM. No ectopy was seen. Law Writer: PANCHO Fraire/PANCHO Trevino Procedure Note Gordon Stephen [...] to 150 BPM. No ectopy was seen. Law Writer: PANCHO Fraire/PANCHO Trevino Rodrigo Gray M.D., Ph.D. CV CARDIAC SERVICE S PROCEDURES Performing Organization Address City/State/ZIP Code Phon e Number [facility] documented in this encounter Visit Diagnoses Diagnosis Tachycardia Supraventricular (HCC) documented in this encounter Additional Health Concerns Assessment Noted Time PHQ-9 Depression Total Score: 11 09/09/2015 4:10 PM CD T documented as of this encounter Care Teams Entry Analyst Relationship Specialty Start Date End Date Elsewhere, Pcp PCP - General Internal Medicine 07/04/21 documented as of this encounter
--- OUTSIDE RECORDS SUMMARY | 2022-01-16 18:21 | XMS_ITS | Encounter Summary ---
:1990 Author Organization [place] Address [address] [place] [address] Care Team Providers Name Role Phone No Ref-Primary, Physician Primary Care Provider [phone] Encounter Details Date Type Department Care [...] on filedocumented in this encounter Care Teams Lapeler Relationship Specialty Start Date End Date No Ref-Primary, Physician PCP - General 03/15/21 documented as of this encounter
--- OUTSIDE RECORDS SUMMARY | 2022-01-16 18:21 | XMS_ITS | Encounter Summary ---
:1990 Author Organization [facility] Address [address] [place] [address] Care Team Providers Name Role Phone No Ref-Primary, Physician Primary Care Provider [phone] Reason for Referral CV Cardio consult (Routine) - Pending Review Specialty Diagnoses / Procedures Referred By Referred To Contact Contact Cardiovascular Disease Diagnoses Palpitations Sinus tachycardia Paroxysmal supraventricular tachycardia (H) Pedrito Noguera Wy malika meza MD [address] [place] [address] [place] [address] [place], [place] Phone: [phone] Phone: Fax: Referral ID Status Reason Start Date Expiration Date Visits V isits Requested Authorized [id number] Pending 03/19/2021 03/19/2022 1 1 Review V Testing (Routine) - Pending Review Specialty Diagnoses / Procedures Referred By Contact Refer red To Contact Diagnoses Palpitations Sinus tachycardia Paroxysmal supraventricular tachycardia (H) Pedrito Noguera MD Procedures Leadless director of automation 3 to 7 Days ZZHC EXT ECG > 48HR TO 21 DAY RCRD W/CONECT INTL RD ZZC EXT ECG > 48HR TO 21 DAY REVIEW AND INTERPRETATN CT EXT ECG > 48HR TO 21 DAY RCRD W/CONECT INTL [place] [facility] [address] [place] [address] EXT ECG > 48HR TO 21 DAY REVIEW AND INTERPRETATN HC EXT ECG > 48HR TO 21 DAY RCRD W/[place] [address] Referral ID Status Reason Start Date Expiration Date Visits V isits Requested Authorized [id number] Pending 03/19/2021 03/19/2022 1 1 Review Reason for Visit Reason Comments Numbness lower left leg tingling onse t at 1900 lastnight pt ambulated into triage, pt from [place] Palpitations hx of SVT feels palpitations , HR in triage 85 no chest pain Anxiety Encounter Details Date Type Department Care Team Description 03/19/2021 Emergency [facility] Pedrito Noguera, Palpi tations; [place] [facility] Sinus tachycardia; Dept [address] [facility] Paroxysmal supraventricular tachycardia (H); [address] [place] [address] Paresthesia of left leg; [place], [place] [phone] Anxiety [phone] (Work) [phone] Social History Tobacco Use Types Packs/Day Years [...] Services to schedule your ZIO Patch monitor tech study as soon as possible: [phone]. An EP Cardiology clinic referral was made for you, they will contact you to establish follow-up. AttachmentsThe following attachments cannot be sent through Care Everywhere. Supraventricular Tachycardia (SVT), Understanding (Scottish)Paraesthesias (Scottish)Anxiety, Your Body's Response to (Scottish)documented in this encounter Medications at Time of [...] lastnight pt ambulated into triage, pt from [facility] ??? Palpitations hx of SVT feels palpitations, HR in triage 85 no chest pain ??? Anxiety HPI Luisito Rainey is a 30 year old male from the [facility], with history of anxiety,depression, chemical dependency [...] that he needs to see an EP Steward/Stewardess Third Class for medication adjustment and another ablation procedure. This morning he called the [facility] answering service or nurse triage service with concern of elevated heart rate and asking if he can switch back from Metoprolol to Nadolol and questioned whether he was to have another EP study/Zio patch monitor study. He was previously on Nadolol and Corlanor/Ivabradine (5 mg twice daily), but since admission to [facility] recently the beta-terrence therapy will switched [...] Choline Fenofibrate Other - Describe In Comment [facility] 01/21/2019 Cold sores ?? Inositol Other - Describe In Comment [facility] 01/21/2019 Cold sores ?? Ascorbic Acid Other - Describe In Comment [facility] 01/21/2019 Cold sores ?? Lemon Oil Other - Describe In Comment [facility] 01/21/2019 Cold sores ?? Niacinamide Other - Describe In Comment [facility] 01/21/2019 Cold sores ?? Pantothenic Acid Other - Describe In Comment [facility] 01/21/2019 Cold sores ?? Pineapple Anaphylaxis High 02/17/2013 ?? Pyridoxine Other - Describe In Comment [facility] 01/21/2019 Cold sores ?? Riboflavin (Vitamin B2) Other - Describe In Comment [facility] 01/21/2019 Cold sores ?? Thiamine (Vitamin B1) Other - Describe In Comment [facility] 01/21/2019 Cold sores ?? Cyanocobalamin (Vitamin B12) Other - Describe In Comment [facility] 01/21/2019 Cold sores ?? Medications Reconcile with [...] EKG: Rapid palpitations Rhythm: normal sinus Rate: [place]: Horizontal axis Ectopy: none Conduction: RSR in [...] Status --------- ------ CBC with platelets and d...[[id number]] Abnormal Final result Please view results for [...] Making) 30 year old male from the [facility], with history of anxiety, depression, chemical [...] repeatedly expressed that he had a particular Steward/Stewardess Third Class in the past who was only one that would listen to me and performed the ablation. He wants referral to a new EP sld teacher. He was previously on Nadolol and Corlanor/Ivabradine(5 mg twice daily) therapy per his [facility] Steward/Stewardess Third Class at [facility], but since admission to [facility] recently his beta-terrence therapy has been switched to Metoprolol tartrate 25 mg twice daily, and his palpitations have worsened, although his benzodiazepine dependence and abuse is also being treated and now his anxiety is worsening. He is unhappy with his Steward/Stewardess Third Class at the [facility] and would like referral for new EP Steward/Stewardess Third Class and get another monitor tech study. He believes that he needs another ablation procedure. I will make a referral to EP cardiology and order an outpatient 7-day Zio patch monitor study. He declined resumption of Nadolol therapy instead of Metoprolol because he wants to ensure that his symptomatic rapid palpitations/PSVT is captured on the monitor study. He appears stable for discharge back to [facility] with continued monitoring there. He was [...] (H) Paresthesia of left leg Anxiety 03/19/2021 [facility] Pedrito Noguera MD 03/19/211814 documented in this encounter Miscellaneous Notes Result Encounter Note - Fer Freeman RN - 03/19/2021 5:50 PM CDT Within normal reference range. documented in this encounter Plan of Treatment Scheduled Orders Name Type Priority Associated Diagnoses Order S [facility] Leadless EKG Cardiac Services YASSINE Palpitations Expected: Monitor 3 to 7 Sinus tachycardi a 03/19/2021 Days Paroxysmal (Approximate), supraventricular Expires: tachycardia (H) 06/19/2021 Scheduled Referrals Name Type Priority Associated Diagnoses Order S [facility] Adult Cardiology Referral Routine: Next Palpitations Expected: [...] Signature Magnesium 2.1 1.6 - 2.3 03/19/2021 OR LAB[facility]ATORY mg/dL 5:52 PM CDT Specimen Anatomical Collection Method / Collection Time Recei shakeel Time (Source) Location / Volume Laterality Blood VENOUS LINE / Venipuncture / 03/19/2021 5:15 1 5:34 Unknown Unknown PM CDT PM CDT Pedrito Noguera MD LAB - BLOOD ORDERABLES Performing Organization Address City/State/[place] [address] [phone] Acute Care Lab [address] [place] [address]. Room # 2186 [place] [address], [facility] [phone] Acute Care Lab [address] [place] [address]. Room # 2186 D dimer quantitative (03/19/2021 5:15 PM CDT) Analysis Performed At Patho logist Time Signature D-Dimer <0.27 0.00 - 03/19/2021 OR [facility] Quantitative 0.50 ug/mL 5:49 PM CDT FEU Specimen Anatomical Collection Method / Collection Time Recei shakeel Time (Source) Location / Volume Laterality Blood VENOUS LINE / Venipuncture / 03/19/2021 5:15 1 5:34 Unknown Unknown PM CDT PM CDT Narrative [facility] - 03/19/2021 5:49 PM CDT This D-dimer assay is intended for use i n conjunction with a clinical pretest probability assessment model to exclude pulmonary embolism (PE) and deep venous thrombosis (DVT) in outpatients suspecte d of PE or DVT. The cut-off value is 0.50 ug/mL FEU. Pedrito Noguera MD LAB - BLOOD ORDERABLES Performing Organization Address City/State/[place] [address] [phone] Acute Care Lab [address] [place] [address]. Room # 2186 [place] [address], [facility] [phone] Acute Care Lab [address] [place] [address]. Room # 2186 (ABNORMAL) CBC with platelets and differential (03/19/2021 3:57 PM CDT) [facility] Method Time Signature WBC Count 13.3 (H) 4.0 - 03/19/2021 [facility] 11.0 4:11 PM CDT 10e3/uL RBC Count 5.52 4.40 - 03/19/2021 OR [facility] 5.90 4:11 PM CDT 10e6/uL Hemoglobin 17.2 13.3 - 03/19/2021 [facility] 17.7 g/dL 4:11 PM CDT Hematocrit 48.6 40.0 - 03/19/2021 OR [facility] 53.0 % 4:11 PM CDT MCV 88 78 - 100 03/19/2021 OR [facility] fL 4:11 PM CDT MCH 31.2 26.5 - 03/19/2021 [facility] 33.0 pg 4:11 PM CDT MCHC 35.4 31.5 - 03/19/2021 [facility] 36.5 g/dL 4:11 PM CDT RDW 12.2 10.0 - 03/19/2021 [facility] 15.0 % 4:11 PM CDT Platelet Count 242 150 - 450 03/19/2021 [facility] 10e3/uL 4:11 PM CDT % Neutrophils 73 % 03/19/2021 OR [facility] 4:11 PM CDT % Lymphocytes 18 % 03/19/2021 OR [facility] 4:11 PM CDT % Monocytes 6 % 03/19/2021 OR [facility] 4:11 PM CDT % Eosinophils 2 % 03/19/2021 OR [facility] 4:11 PM CDT % Basophils 1 % 03/19/2021 OR [facility] 4:11 PM CDT % Immature 0 % 03/19/2021 OR [facility] Granulocytes 4:11 PM CDT NRBCs per 100 0 <1 /100 03/19/2021 OR [facility] WBC 4:11 PM CDT Absolute 9.7 (H) 1.6 - 8.3 03/19/2021 [facility] Neutrophils 10e3/uL 4:11 PM CDT Absolute 2.4 0.8 - 5.3 03/19/2021 [facility] Lymphocytes 10e3/uL 4:11 PM CDT Absolute 0.9 0.0 - 1.3 03/19/2021 [facility] Monocytes 10e3/uL 4:11 PM CDT Absolute 0.3 0.0 - 0.7 03/19/2021 [facility] Eosinophils 10e3/uL 4:11 PM CDT Absolute 0.1 0.0 - 0.2 03/19/2021 [facility] Basophils 10e3/uL 4:11 PM CDT Absolute 0.0 <=0.0 03/19/2021 [facility] Immature 10e3/uL 4:11 PM CDT Granulocytes Absolute NRBCs 0.0 10e3/uL 03/19/2021 OR [facility] 4:11 PM CDT Specimen Anatomical Collection Method / Collection Time Recei shakeel Time (Source) Location / Volume Laterality Blood STRUCTURE OF LEFT Venipuncture / 03/19/2021 3:57 03/19 4:08 UPPER LIMB / Unknown PM CDT PM CDT Unknown Pedrito Noguera MD LAB - BLOOD ORDERABLES Performing Organization Address City/State/[place] [address] [phone] Acute Care Lab [address] [place] [address]. Room # 2186 [place] [address], [facility] [phone] Acute Care Lab [address] [place] [address]. Room # 2186 Troponin I (03/19/2021 3:57 PM CDT) athologist Signature Troponin I <0.015 0.000 - 03/19/2021 [facility] 0.045 ug/L 4:31 PM CDT Comment: [...] Organization Address City/State/[place] [address] [phone] Acute Care Lab [address] [place] [address]. Room # 2186 [place] [address], [facility] [phone] Acute Care Lab [address] [place] [address]. Room # 2186 Basic metabolic panel (03/19/2021 3:57 PM CDT) athologist Signature Sodium 139 133 - 144 03/19/2021 [facility] mmol/L 4:27 PM CDT Potassium 4.0 3.4 - 5.3 03/19/2021 [facility] mmol/L 4:27 PM CDT Chloride 106 94 - 109 03/19/2021 [facility] mmol/L 4:27 PM CDT Carbon Dioxide 26 20 - 32 03/19/2021 [facility] (CO2) mmol/L 4:27 PM CDT Anion Gap 7 3 - 14 03/19/2021 [facility] mmol/L 4:27 PM CDT Urea Nitrogen 10 7 - 30 03/19/2021 OR [facility] mg/dL 4:27 PM CDT Creatinine 0.79 0.66 - 03/19/2021 [facility] 1.25 mg/dL 4:27 PM CDT Calcium 9.3 8.5 - 10.1 03/19/2021 [facility] mg/dL 4:27 PM CDT Glucose 86 70 - 99 03/19/2021 [facility] mg/dL 4:27 PM CDT GFR Estimate >90 >60 03/19/2021 OR [facility] mL/min/1.7 4:27 PM CDT 3m2 Comment: [...] Organization Address City/State/[place] [address] [phone] Acute Care Lab [address] [place] [address]. Room # 2186 [place] [address], [facility] [phone] Acute Care Lab [address] [place] [address]. Room # 2186 EKG 12 lead (03/19/2021 [...] documented in this encounter Care Teams Manager Action Relationship Specialty Start Date End Date No Ref-Primary, Physician PCP - General 03/15/21 documented as of this encounter
--- OUTSIDE RECORDS SUMMARY | 2022-01-16 18:22 | XMS_ITS | Encounter Summary ---
:1990 Author Organization [facility] Address [address] [place] [address] Care Team Providers Name Role Phone Elsewhere, Pcp Primary Care Provider Unavailable Reason for Visit Auth/Cert Specialty Diagnoses / Procedures Referred By Contact Refer red To Contact Diagnoses Tachycardia Supraventricular (HCC) Procedures [place] EP EVAL W SUPRAVENT ABLATE DIAGNOSTIC EPS ABLATION - SVT Referral ID Status Reason Start Date Expiration Date Visits Requ ested Visits Authorized [id number] 1 1 Encounter Details Date Type Department Care Team Description 07/07/2021 Anesthesia Event Division of Cardiovascular Alex Mauro in [facility], DIRECTOR OF PATIENT SAFETY, SPRAY DRIER [place] [address] [address] [facility] [address] [place] [phone] Anesthesia Record Procedure Summary Procedure Name Responsible Anesthesiologist Anesthesia Start Ti me Anesthesia Stop Time DIAGNOSTIC EPS Yee Mauro, DIRECTOR OF PATIENT SAFETY, 07/07/21 0801 07/07 1107 SPRAY DRIER Events Date Time Event Comment 07/07/2021 0801 An Start Machine/Equipmen t Checked Infection Precautions Foll owed Procedure/Site Verified NPO Sta tus Verified Supine Standard ASA Mon itors Applied 0833 Turnover to Proceduralist 0838 Proc Start 1054 Proc Fin 1057 Turnover to ANE Staff 1057 an stop data 1107 An End I completed my h andoff to the receiving staff during [facility] we 1. Identified the patient 2. [...] 1,000 units/mL injection 7,000 Units heparin standard 63837 Units/250 mL in 0.45 % Sodium C [...] er 07/18/2021 How often do you attend congregational or lutheran services? Never 07/18/2021 Do you belong to any clubs or organizations such as congregational N o 07/18/2021 groups, unions, fraternal or [...] or slept in a mcc (including now)? Education Answer Date Recorded What is the highest level of school you have GED or equivale nt 05/20/2021 completed or the highest degree you have received? Sex Assigned at Date Recorded Male 06/01/2020 11:57 AM RUBBER CURER documented as of this encounter OR Notes Anesthesia Postprocedure Evaluation - Yee Mauro APRN, CRNA - 07/07/2021 11:35 AM CST Patient: Luisito Rainey Procedure Summary Date: 07/07/21 Room / Location: [place] [address] / [facility] Anesthesia Start: 800 Anesthesia Stop: Procedure: [...] Post Op nausea/vomiting: none Hydration status: euvolemic ER CURER Anesthesia Preprocedure Evaluation - Yee Mauro APRN, [...] Pre-op diagnosis: Tachycardia Supraventricular (HCC) [I47.1] Location: [place] [address] / [facility] Surgeons: Rodrigo Gray M.D., Ph.D. Pertinent [...] with patient /legal guardian or through an parts interpreter. Risks/Benefits/Alternatives of Blood transfusion discussed with patient / legal guardian, including an opportunity to ask questions and/or decline some or all transfusion therapies. The patient / legalguardian consented to the use of all blood products, as deemed medically necessary Approval to Proceed: approved for anesthesia ER CURER Anesthesia Procedure Notes - Yee Mauro APRN, [...] yes Complications - arterial: none ATTESTATION STATEMENT ER CURER documented in this encounter Plan of Treatment Not on filedocumented as of this encounter Procedures Procedure Name Priority Date/Time Associated Diagnosis Comme nts LDA ANE ARTERIAL Routine 07/07/2021 8:25 AM Resul ts for this LINE INSERTION RUBBER CURER procedure are in the results section. [place] ARTL CATH/CNULA Routine 07/07/2021 8:25 AM Res ults for this MONITOR PERC RUBBER CURER procedure are i n the results section. documented in this encounter Results [place] ARTL CATH/CNULA MONITOR PERC, LDA ANE ARTERIAL LINE INSERTION (07/07/2021 8:25 AM RUBBER CURER) Narrative Yee Mauro APRN, CRNA - 2021 8:25 AM RUBBER CURER Yee Mauro APRN, CRNA ? 07/07/2021 ??8:35 [...] caffeine-sodium benzoate injection Given 07/07/2021 9:52 AM RUBBER CURER 250 mg intravenous, As needed, Starting on Sat07/07/21 at 0919, Anesthesia Intra-op Given 07/07/2021 9:19 AM RUBBER CURER 250 mg clindamycin in D5W IVPB (CLEOCIN) Given 07/07/2021 8:29 AM RUBBER CURER 900 mg intravenous, Administer over 30 Minutes, As needed, Starting on Sat07/07/21 at 0829, Anesthesia Intra-op fentaNYL injection (SUBLIMAZE) Given 07/07/2021 10:37 AM RUBBER CURER 25 mcg intravenous, As needed, Starting on Sat07/07/21 at 1037, Anesthesia Intra-op heparin (porcine) 1,000 unit/mL Given 07/07/2021 10:12 AM RUBBER CURER 1, 000 Units injection intravenous, As needed, Starting on Sat07/07/21 at 0901, Anesthesia Intra-op Given 07/07/2021 9:44 AM RUBBER CURER 1,000 Units Given 07/07/2021 9:01 AM RUBBER CURER 5,000 Units heparin (porcine) 100 Rate/Dose 07/07/2021 18 Units/kg/hr 14.94 Units/mL in NaCl 0.45% 250 Change 10:12 AM RUBBER CURER mL/hr mL infusion intravenous, Continuous Infusion: Per Instructions PRN, Starting on Sat07/07/21 at 0903, Anesthesia Intra-op Rate/Dose Change 07/07/2021 9:43 AM RUBBER CURER 15 Units/kg/hr 12.45 mL/hr New Bag 07/07/2021 9:03 AM RUBBER CURER 12 Units/kg/hr 9.96 mL/hr isoproterenol 4 mcg/mL in NaCl Restarted 07/07/2021 10:25 0.1 mc g/kg/min 124.5 mL/hr 0.9% 250 mL infusion (ISUPREL) AM RUBBER CURER intravenous, Continuous Infusion: Per Instructions PRN, Starting on Sat07/07/21 at 0939, Anesthesia Intra-op Rate/Dose Change 07/07/2021 10:15 AM RUBBER CURER 0.1 mcg/kg/min 124.5 mL/hr Rate/Dose Change 07/07/2021 10:08 AM RUBBER CURER 0.05 mcg/kg/min 62.25 mL/h r lactated ringers New Bag 07/07/2021 8:01 AM RUBBER CURER intravenous, Continuous Infusion: Per Instructions PRN, Starting on Sat07/07/21 at 0801, Anesthesia Intra-op lactated ringers New Bag 07/07/2021 8:25 AM RUBBER CURER intravenous, Continuous Infusion: Per Instructions PRN, Starting on Sat07/07/21 at 0825, Anesthesia Intra-op lidocaine (PF) (cardiac) injection Given 07/07/2021 10:40 AM RUBBER CURER 80 mg intravenous, As needed, Starting on Sat07/07/21 at 1040, Anesthesia Intra-op midazolam (PF) injection (VERSED) Given 07/07/2021 10:58 AM RUBBER CURER 2 mg intravenous, As needed, Starting on Sat07/07/21 at 1035, Anesthesia Intra-op Given 07/07/2021 10:35 AM RUBBER CURER 2 mg phenylephrine 80 mcg/mL in Rate/Dose 07/07/2021 9:50 1.2 mcg/kg/min 74.7 mL/hr NaCl 0.9% 250 mL infusion Change AM RUBBER CURER intravenous, Continuous Infusion: Per Instructions PRN, Starting on Sat07/07/21 at 0845, Anesthesia Intra-op Rate/Dose Change 07/07/2021 9:46 AM RUBBER CURER 1 mcg/kg/min 62.25 mL/hr Rate/Dose Change 07/07/2021 9:45 AM RUBBER CURER 0.9 mcg/kg/min 56.025 mL/hr propofol 10 mg/mL infusion Rate/Dose 07/07/2021 100 mcg/kg/min 49.8 mL/hr (DIPRIVAN) Change 10:43 AM RUBBER CURER intravenous, Continuous Infusion: Per Instructions PRN, Starting on Sat07/07/21 at 0808, Anesthesia Intra-op Restarted 07/07/2021 10:40 AM RUBBER CURER 75 mcg/kg/min 37.35 mL/hr Rate/Dose Change 07/07/2021 9:36 AM RUBBER CURER 50 mcg/kg/min 24.9 mL/hr propofol bolus from bag (DIPRIVAN) Given 07/07/2021 10:43 AM RUBBER CURER 25 mg intravenous, As needed, Starting on Sat07/07/21 at 0807, Anesthesia Intra-op Given 07/07/2021 10:39 AM RUBBER CURER 50 mg Given 07/07/2021 8:19 AM RUBBER CURER 50 mg protamine injection Given 07/07/2021 10:39 AM RUBBER CURER 20 mg intravenous, As needed, Starting on Sat07/07/21 at 1037, Anesthesia Intra-op Given 07/07/2021 10:38 AM RUBBER CURER 10 mg Given 07/07/2021 10:37 AM RUBBER CURER 10 mg documented in this encounter Additional Health Concerns Assessment Noted Time PHQ-9 Depression Total Score: 11 09/09/2015 4:10 PM CD T documented as of this encounter Care Teams Community Health Nurse Relationship Specialty Start Date End Date Elsewhere, Pcp PCP - General Internal Medicine 07/04/21 documented as of this encounter
--- OUTSIDE RECORDS SUMMARY | 2022-01-16 18:22 | XMS_ITS | Encounter Summary ---
:1990 Author Organization [facility] Address [address] [place] [address] Care Team Providers Name Role Phone Elsewhere, Pcp Primary Care Provider Unavailable Reason for Referral Outpatient (Routine) - Closed Specialty Diagnoses / Procedures Referred By Contact Refer red To Contact Diagnoses Tachycardia Supraventricular (HCC) Rodrigo Gray [facility] Procedures Echo Transthoracic (TTE) Karley, Ph.D. [address] [place] [phone] Referral ID Status Reason Start Date Expiration Date Visits Requ ested Visits Authorized [id number] Closed 05/26/2021 05/26/2022 1 1 RAL CAR CHAUFFEUR Reason for Visit Outpatient (Routine) - Closed Specialty Diagnoses / Procedures Referred By Contact Refer red To Contact Diagnoses Tachycardia Supraventricular (HCC) Rodrigo Gray [facility] Procedures Echo Transthoracic (TTE) Karley, Ph.D. [address] [place] [phone] Referral ID Status Reason Start Date Expiration Date Visits Requ ested Visits Authorized [id number] Closed 05/26/2021 05/26/2022 1 1 Encounter Details Date Type Department Care Team Description 07/06/2021 Hospital Department of [place], Tachycardia Encounter Cardiovascular Rodrigo Arias Supraventr icular (HCC) Diseases in Karley, Ph.D. [place], [place] 200 [facility] [address] [place] [phone] Social History Tobacco Use Types Packs/Day Years [...] er 07/18/2021 How often do you attend tenriism or sikhism services? Never 07/18/2021 Do you belong to any clubs or organizations such as tenriism N o 07/18/2021 groups, unions, fraternal or [...] at Date Recorded Male 06/01/2020 11:57 AM FUNERAL CAR CHAUFFEUR documented as of this encounter Medications at [...] mouth at 0 03/01/20 21 tablet bedtime. [id number] Take 1 tablet by mouth 0 -minerals [...] Tachycardia Results for this DOPPLER COLOR AM FUNERAL CAR CHAUFFEUR Supraventricular (HCC) proc edure are in the results section. documented in this encounter Results (TTE) 2D ECHO DOPPLER COLOR (07/06/2021 8:49 AM FUNERAL CAR CHAUFFEUR) Patholo gist Method Time Signature Ejection Fraction [...] / / Volume Laterality 07/06/2021 7:40 AM FUNERAL CAR CHAUFFEUR Impressions 07/06/2021 2:57 PM FUNERAL CAR CHAUFFEUR LEFT VENTRICLE:Normal left ventricular chamber size. Normal [...] Order-L evel Documents. Narrative 07/06/2021 2:57 PM FUNERAL CAR CHAUFFEUR For the complete report, see the Order-Level [...] original. For the complete report, see the Doctor kinetic-L Metrilus Documents. Final Impressions 1. Normal left ventricular [...] effusion. For the complete report, see the Doctor kinetic-L Metrilus Documents. Rodrigo Gray M.D., Ph.D. CV ECHO PROCEDURES documented in this encounter Visit Diagnoses Diagnosis Tachycardia Supraventricular (HCC) documented in this encounter Additional Health Concerns Infection Onset Date Last Indicated Resolved Time COVID19 Pending 07/06/2021 07/06/2021 07/06/2021 5:05 PM FUNERAL CAR CHAUFFEUR Assessment Noted Time PHQ-9 Depression Total Score: 11 09/09/2015 4:10 PM CD T documented as of this encounter Care Teams Cold Meat Chef Relationship Specialty Start Date End Date Elsewhere, Pcp PCP - General Internal Medicine 07/04/21 documented as of this encounter
--- OUTSIDE RECORDS SUMMARY | 2022-01-16 18:22 | XMS_ITS | Encounter Summary ---
:1990 Author Organization [facility] Address [address] [place] [address] Care Team Providers Name Role Phone Elsewhere, Pcp Primary Care Provider Unavailable Reason for Visit Reason Comments Remote Patient Monitoring Disconnected Monitor Encounter Details Date Type Department Care Team Description 06/12/2021 Clinical Department of Marina, Remote Patient Communication Cardiovascular [place] in [place], Ph.D. (Disconnected [place], [place] [address] [facility] Monitor) [address] [place] [phone] Social History Tobacco Use Types Packs/Day Years [...] er 07/18/2021 How often do you attend restorationism or hoahaoism services? Never 07/18/2021 Do you belong to any clubs or organizations such as restorationism N o 07/18/2021 groups, unions, fraternal or [...] place to sleep or slept in a correction (including now)? Education Answer Date Recorded What is the highest level of school you have GED or equivale nt 05/20/2021 completed or the highest degree you have received? 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 documented as of this encounter Miscellaneous Notes [...] to this notification or call us at [phone]) UNTS RECEIVABLE COORDINATOR documented in this encounter Plan of Treatment Not on filedocumented as of this encounter Visit Diagnoses Not on filedocumented in this encounter Additional Health Concerns Infection Onset Date Last Indicated Resolved Time COVID19 Pending 07/06/2021 07/06/2021 07/06/2021 5:05 PM ACCOUNTS RECEIVABLE COORDINATOR Assessment Noted Time PHQ-9 Depression Total Score: 11 09/09/2015 4:10 PM CD T documented as of this encounter Care Teams Footwear Sales Representative Relationship Specialty Start Date End Date Elsewhere, Pcp PCP - General Internal Medicine 07/04/21 documented as of this encounter
--- OUTSIDE RECORDS SUMMARY | 2022-01-16 18:22 | XMS_ITS | Encounter Summary ---
:1990 Author Organization [facility] Address [address] [place] [address] Care Team Providers Name Role Phone Unavailable Primary Care Provider Unavailable Reason for Visit Reason Comments Baseline Encounter Details Date Type Department Care Team Description 06/14/2021 Clinical Department of Marina, Baseline Communication Cardiovascular Rodrigo Arias, Medicine in [place], Nitish., Ph. D. [address] [phone] Social History Tobacco Use Types Packs/Day Years [...] er 07/18/2021 How often do you attend jewish or taoist services? Never 07/18/2021 Do you belong to any clubs or organizations such as jewish N o 07/18/2021 groups, unions, fraternal or [...] place to sleep or slept in a jail (including now)? Education Answer Date Recorded What is the highest level of school you have GED or equivale nt 05/20/2021 completed or the highest degree you have received? 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
--- OUTSIDE RECORDS SUMMARY | 2022-01-16 18:22 | XMS_ITS | Encounter Summary ---
:1990 Author Organization [facility] Address [address] [place] [address] Care Team Providers Name Role Phone Unavailable Primary Care Provider Unavailable Reason for Visit Reason Comments Self Referral Communication Encounter Details Date Type Department Care Team Description 04/07/2021 Clinical Department of Social Media Community Manager Self Referral Communication Cardiovascular , Karley Mills (Communicati on) Medicine in [place], [place] [address] [place] [address] Social History Tobacco Use Types Packs/Day Years [...] er 07/18/2021 How often do you attend anabaptism or sikhism services? 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 Requesting Dr. Gray. Updated CE. Can you please let us know the urgency of this request? Thank you, Anny E PLANER TENDER Telephone Encounter - Lacy Palencia - 04/07/2021 2:46 PM CDT RAFFY PAR will let us know when we are okay to schedule. Telephone Encounter - Winston Mckeon R.N. - 04/07/2021 9:42 AM CDT Images from the original note were not included. [facility] Heart Rhythm Services' Nurse Chart Review: INDICATION: [...] Completed Testing: ??? ECG from 03/02/2021: ??? Holter/Director Of Strategy & Mobile from 11/13/2020: ??? CXR from 02/19/21: ??? [...] Intervals Study State Underlying Rhythm Cycle Length IL PA AH HV QRS Barnett QRS Morphology Baseline NSR 781 161 ?? [...] See Anesthesia Note Total Flouro Time: 0 MANAGER OF CONSTRUCTION Total Flouro Dose: 0 mGy ??? EP Study 12/13/2020- Consent & [place] Protocol [place] protocol was followed. ??TIME OUT conducted just [...] Intervals Study State Underlying Rhythm Cycle Length IL PA AH HV QRS Barnett QRS Morphology Baseline NSR 688 129 ?? [...] mg twice daily), but since admission to [facility] recently the beta-terrence therapy will switched to [...] 09:51 AM To: Rst Cvd Osm Hrs ([place]) Priority: Routine Routing Comments: ??Have they had [...]
--- OUTSIDE RECORDS SUMMARY | 2022-01-16 18:22 | XMS_ITS | Encounter Summary ---
:1990 Author Organization [facility] Address [address] [place] [address] Care Team Providers Name Role Phone Unavailable Primary Care Provider Unavailable Reason for Visit Appointment Request (Routine) - Closed Specialty Diagnoses / Procedures Referred By Referred To Contact Contact Cardiovascular Disease Diagnoses Tachycardia Supraventricular (HCC) Referral ID Status Reason Start Date Expiration Date Visits Requ ested Visits Authorized [id number] Closed 04/03/2021 04/03/2022 1 1 Encounter Details Date Type Department Care Team Description 05/25/2021 Virtual Visit Department of Marina, Tachycardia Cardiovascular Rodrigo Arias, Supraventr icular ([facility]) Medicine in M.D., Ph.D. (Primary Dx) [place], [place] [address] [facility] [address] [place] [phone] [phone] Social History Tobacco Use Types Packs/Day Years [...] How often do you attend jewish or anglican services? Never 07/18/2021 Do you [...] slept in a skilled nursing (including now)? Education Answer Date Recorded What is the highest level of school you have GED or equivale nt 05/20/2021 completed or the highest degree you have received? 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 - 05/25/2021 3:00 PM CST SUBJECTIVE REASON FOR CONSULT SVT. HISTORY OF PRESENT ILLNESS This is a cxl-nctw-fk-face visit done in the setting [place] [address] according to [facility] institutional guidelines. This was done via telephone [...] palpitations. He has been treated up in [place] with Corlanor as well as 75 mg [...] Donald M.D., Ph.D. CT CT Job ID: [id number] REPORTING ASSOCIATE documented in this encounter Plan of Treatment Not on filedocumented as of this encounter Visit Diagnoses Diagnosis Tachycardia Supraventricular (HCC) - [facility] documented in this encounter Additional Health Concerns Assessment Noted Time PHQ-9 Depression Total Score: 11 09/09/2015 4:10 PM CD T documented as of this encounter
--- OUTSIDE RECORDS SUMMARY | 2022-01-16 18:22 | XMS_ITS | Encounter Summary ---
:1990 Author Organization [facility] Address [address] [place] [address] Care Team Providers Name Role Phone Elsewhere, Pcp Primary Care Provider Unavailable Encounter Details Date Type Department Care Team Description 07/06/2021 Hospital Department of Marina, Tachycardia Encounter Laboratory Rodrigo Arias Supraventric ulflorencia ([facility]) Medicine and [facility], Ph.D. Pathology, [place] [address] [place] [address] in [facility] [phone] [place] [phone] [place] [address] (Work) [place] [address] Social History Tobacco Use Types [...] er 07/18/2021 How often do you attend synagogue or scientology services? 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 [id number] Take 1 tablet by mouth 0 -minerals [...] Tachycardia Results for this DIFFERENTIAL, B AM LONG TERM CARE PHARMACIST Supraventricular (HCC) pr ocedure are in the results section. TYPE AND SCREEN Routine 07/06/2021 11:10 Tachycardia Results for this AM LONG TERM CARE PHARMACIST Supraventricular (HCC) proce dure are in the results section. BASIC METABOLIC Routine 07/06/2021 11:09 Tachycardia Results for this PANEL, S/P AM LONG TERM CARE PHARMACIST Supraventricular (HCC) proce dure are in the results section. documented in this encounter Results Type and Screen (with reflex Antibody ID) (07/06/2021 11:10 AM LONG TERM CARE PHARMACIST) [facility] H.BLOOM Method Time Signature ABORh A Pos Not 07/06/2021 ETRM applicable 12:04 PM LONG TERM CARE PHARMACIST Antibody Negative Negative 07/06/2021 ETRM Screen 12:15 PM LONG TERM CARE PHARMACIST Type & Screen 07/09/2021 07/06/2021 ETRM Expiration 23:59 12:04 PM LONG TERM CARE PHARMACIST Testing [place] DEFAULT 07/06/2021 ETRM Location 11:28 AM LONG TERM CARE PHARMACIST Specimen Anatomical Collection Method Collection Time Receive d Time (Source) Location / / Volume Laterality Blood (Blood, 07/06/2021 11:10 07/06/2021 Venous) AM LONG TERM CARE PHARMACIST 11:28 AM LONG TERM CARE PHARMACIST Rodrigo Gray M.D., Ph.D. LAB BLOOD BANK ANGELLA T ORDERABLES Performing Organization Address City/State/ZIP Code Phon e Number [facility] - [address] [place], [place] [address] [facility] [place] [address] Laboratories-[facility] [address] [facility] (ABNORMAL) CBC without Differential (07/06/2021 11:10 AM LONG TERM CARE PHARMACIST) [facility] H.BLOOM Method Time Signature Hemoglobin 16.2 13.2 - 07/06/2021 DTL 16.6 g/dL 11:53 AM LONG TERM CARE PHARMACIST Hematocrit 48.5 38.3 - 07/06/2021 DTL 48.6 % 11:53 AM LONG TERM CARE PHARMACIST Erythrocytes 5.49 4.35 - 07/06/2021 DTL 5.65 11:53 AM LONG TERM CARE PHARMACIST x10(12)/L MCV 88.3 78.2 - 07/06/2021 DTL 97.9 fL 11:53 AM LONG TERM CARE PHARMACIST RBC Distrib Width 12.1 11.8 - 07/06/2021 DTL 14.5 % 11:53 AM LONG TERM CARE PHARMACIST Platelet Count 236 135 - 317 07/06/2021 DTL x10(9)/L 11:53 AM LONG TERM CARE PHARMACIST Leukocytes 9.9 (H) 3.4 - 9.6 07/06/2021 DTL x10(9)/L 11:53 AM LONG TERM CARE PHARMACIST Specimen Anatomical Collection Method Collection Time Receive d Time (Source) Location / / Volume Laterality Blood (Blood, 07/06/2021 11:10 07/06/2021 Venous) AM LONG TERM CARE PHARMACIST 11:45 AM LONG TERM CARE PHARMACIST Rodrigo Gray M.D., Ph.D. LAB BLOOD ADD-ON Performing Organization Address City/State/ZIP Code Phon e Number [facility] - [address] [place], [place] [address] [facility] [place] [address] Laboratories-[facility] [address] [facility] Basic Metabolic Panel (07/06/2021 11:09 AM LONG TERM CARE PHARMACIST) P athologist Signature Potassium, S 4.7 3.6 - 5.2 07/06/2021 DTL mmol/L 12:20 PM LONG TERM CARE PHARMACIST Sodium, S 143 135 - 145 07/06/2021 DTL mmol/L 12:20 PM LONG TERM CARE PHARMACIST Chloride, S 103 98 - 107 07/06/2021 DTL mmol/L 12:20 PM LONG TERM CARE PHARMACIST Bicarbonate, S 28 22 - 29 07/06/2021 DTL mmol/L 12:20 PM LONG TERM CARE PHARMACIST Anion Gap 12 7 - 15 07/06/2021 DTL 12:20 PM LONG TERM CARE PHARMACIST BUN (Blood Urea 8 8 - 24 07/06/2021 DTL Nitrogen), S mg/dL 12:20 PM LONG TERM CARE PHARMACIST Creatinine, S 0.98 0.74 - 1.35 07/06/2021 DTL mg/dL 12:20 PM LONG TERM CARE PHARMACIST eGFR-Non >90 >=60 07/06/2021 DTL Black/ mL/min/BSA 12:20 PM LONG TERM CARE PHARMACIST Micronesian Comment: ----ADDITIONAL INFORMATION---- Estimated GFR calculated using the 2009 CKD_EPI creatinine equation. eGFR-Black/ >90 >=60 mL/min/BSA 2021 12:20 PM LONG TERM CARE PHARMACIST DTL Comment: ----ADDITIONAL INFORMATION---- Estimated GFR calculated using the 2009 CKD_EPI creatinine equation. Calcium, Total, S 9.7 8.6 - 10.0 mg/dL 07/06/2021 12:2 0 PM LONG TERM CARE PHARMACIST DTL Glucose, S 99 70 - 140 mg/dL 07/06/2021 12:20 PM LONG TERM CARE PHARMACIST DTL Specimen Anatomical Collection Method Collection Time Receive d Time (Source) Location / / Volume Laterality Blood (Blood, 07/06/2021 11:09 07/06/2021 Venous) AM LONG TERM CARE PHARMACIST 11:56 AM LONG TERM CARE PHARMACIST Rodrigo Gray M.D., Ph.D. LAB BLOOD ADD-ON Performing Organization Address City/State/ZIP Code Phon e Number [facility] - [address] [place], [place] [address] [facility] [place] [address] Laboratories-[facility] [address] documented in this encounter Visit Diagnoses Diagnosis Tachycardia Supraventricular (HCC) documented in this encounter Additional Health Concerns Infection Onset Date Last Indicated Resolved Time COVID19 Pending 07/06/2021 07/06/2021 07/06/2021 5:05 PM LONG TERM CARE PHARMACIST Assessment Noted Time PHQ-9 Depression Total Score: 11 09/09/2015 4:10 PM CD T documented as of this encounter Care Teams Chemist Steroids Relationship Specialty Start Date End Date Elsewhere, Pcp PCP - General Internal Medicine 07/04/21 documented as of this encounter
--- OUTSIDE RECORDS SUMMARY | 2022-01-16 18:22 | XMS_ITS | Encounter Summary ---
:1990 Author Organization [facility] Address [address] [place] [id number] Care Team Providers Name Role Phone Elsewhere, Pcp Primary Care Provider Unavailable Reason for Referral Outpatient (Routine) - Closed Specialty Diagnoses / Procedures Referred By Contact Refer red To Contact Diagnoses Tachycardia Supraventricular (HCC) Rodrigo Gray V. [facility] Procedures Echo Transthoracic (TTE) Karley, Ph.D. [address] [place] [phone] Referral ID Status Reason Start Date Expiration Date Visits Requ ested Visits Authorized [id number] Closed 05/26/2021 05/26/2022 1 1 utpatient (Routine) - Closed Specialty Diagnoses / Procedures Referred By Contact Refer red To Contact Diagnoses Tachycardia Supraventricular (HCC) Rodrigo Gray V. [facility] Procedures ECG 12 Lead Karley, Ph.D. [address] [place] [phone] Referral ID Status Reason Start Date Expiration Date Visits Requ ested Visits Authorized [id number] Closed 05/26/2021 05/26/2022 1 1 ER Encounter Details Date Type Department Care Team Description 05/26/2021 Clinical Communication Department of Lorin Rodriguez Cardiovascular Medicine A, [facility] [address] [facility] [address] [place] [phone] Social History Tobacco Use Types Packs/Day Years [...] er 07/18/2021 How often do you attend mosque or christian services? Never 07/18/2021 Do you belong to any clubs or organizations such as mosque N o 07/18/2021 groups, unions, fraternal or [...] place to sleep or slept in a fpc (including now)? Education Answer Date Recorded What is the highest level of school you have GED or equivale nt 05/20/2021 completed or the highest degree you have received? 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 ER Telephone Encounter - Jessica Mcgarry - 07/06/2021 7:43 AM CST Forms have been received and emailed to [facility] for completion. ER Telephone Encounter - Sachin Ghosh R.N. - [...] following references were used: nursing clinical judgement ER Telephone Encounter - Shakira Cerrato - 06/14/2021 1:50 PM CST This is scheduled, PAG Mailed. Robert Rosenberg ER Telephone Encounter - Lorin Rodriguez R.N. - 05/26/2021 12:28 PM MAILER Contacted Luisito TJeremie Rainey regarding the scheduling for their EPS +/- AVNRT ablation. Mr. Rainey was referred by Dr. Gray for this procedure. Had virtual visit with Dr. Gray 05/25/2021- [id number] score of 0 Pre-procedure Appointment: 07/06/2021- COVID testing before noon and rest of testing after COVDI testing- will need FTF visit with [facility] as well. Pre-Procedure Testing Ordered: labs including Type and screen, CXR , Echo and COVID tesitng Pre-Procedure Testing Completed:labs 03/19/2021 GFR >560,TSH 1.62 02/19/2021 Case Urgency:elective-SDD current orders active in EMR Procedure Date: 07/07/2021 Procedure: EPS +/- AVNRT redo with Dr. Gray Calling In for your Report Time: The night before the procedure, please call the [facility] Service Line ([phone]) or the [facility] Backup Line ([phone]) between 7pm and midnight to find out what time to arrive. This automated phone line will have you type in your [facility] Number (#) and birthdate () to determine your arrival time. On the day of your procedure: Check into [facility], [facility] 4th Floor (east elevators) at the [facility] 4D desk. Youdo not need to check [...] to either live within 100 miles of [place], [place] or spend the night in [place], [place] postprocedure. If you live within 100 miles and live greater than 30 minutes outside of [place], [place]); it is highly recommended that you spend the night in [place], [place]. ??? If you experience any complications or have questions post procedure overnight, please call the [facility] Customer Account Executive at: [phone] and ask for [employer]. Theywill connect you to the on-call provider to assist you further. ??? You will receive sedation for your procedure, so an adult van driver helper and supervision is required for24 hours after [...] free to reach out to us at [phone]. ??? If you have any concerns or questions regarding your schedule, please contact the scheduling team at [phone]. ??? If you have any concerns or questions about your insurance or procedure coverage please contact our business office at [phone]. COVID Screening Questions: 1. Do you, anyone [...] vaccinated with booster Testing Information: ?? Location: [facility] in the [facility]. ?? If your Covid nasal swab is positive, we will contact you to reschedule your procedure. ?? If your Covid tests are not resulted in time for your procedure, expect your procedure to be postponed or rescheduled to a later date. [facility] Specific Instructions: ?? We encourage you to check https://www.[facility].org/fqhkgzt-ipojucj-egfyx for more information as these instructions may change before your procedural date. ?? Must wear a mask at ALL times while on [facility] [place] (except for when eating or showering). ?? [...] facility. Please notify your care teams at [facility] if you develop COVID like symptoms prior to your appointments or procedures as your appointment or procedure may need to be modified. The patient verbalized understanding and agreement with instructions. All questions were answered. ER documented in this encounter Plan of Treatment Not on filedocumented as of this encounter Results ECG 12 Lead (07/06/2021 11:26 AM MAILER) P athologist Signature Ventricular Rate 86 BPM MUSE ECG/Min MD Interval 136 ms MUSE QRSD Interval 86 ms MUSE QT Interval 342 ms MUSE QTC Interval 409 ms MUSE P Makinen 41 degrees MUSE R Makinen 3 degrees MUSE T Wave Makinen 34 degrees MUSE Specimen Anatomical Collection Method Collection Time Receive d Time (Source) Location / / Volume Laterality 07/06/2021 11:26 07/06/2021 AM MAILER 11:29 AM MAILER Impressions MUSE - 07/06/2021 11:29 AM MAILER Normal sinus rhythm Normal ECG When compared [...] (with reflex Antibody ID) (07/06/2021 11:10 AM MAILER) [facility] [employer] Method Time Signature ABORh A Pos Not 07/06/2021 ETRM applicable 12:04 PM MAILER Antibody Negative Negative 07/06/2021 ETRM Screen 12:15 PM MAILER Type & Screen 07/09/2021 07/06/2021 ETRM Expiration 23:59 12:04 PM MAILER Testing [place] DEFAULT 07/06/2021 ETRM Location 11:28 AM MAILER Specimen Anatomical Collection Method Collection Time Receive d Time (Source) Location / / Volume Laterality Blood (Blood, 07/06/2021 11:10 07/06/2021 Venous) AM MAILER 11:28 AM MAILER Rodrigo Gray M.D., Ph.D. LAB BLOOD BANK ANGELLA T ORDERABLES Performing Organization Address City/State/ZIP Code Phon e Number [facility] - [address] [place], [place] [address] [facility] [place] [address] Laboratories-[facility] [address] (ABNORMAL) CBC without Differential (07/06/2021 11:10 AM MAILER) [facility] gist Method Time Signature Hemoglobin 16.2 13.2 - 07/06/2021 DTL 16.6 g/dL 11:53 AM MAILER Hematocrit 48.5 38.3 - 07/06/2021 DTL 48.6 % 11:53 AM MAILER Erythrocytes 5.49 4.35 - 07/06/2021 DTL 5.65 11:53 AM MAILER x10(12)/L MCV 88.3 78.2 - 07/06/2021 DTL 97.9 fL 11:53 AM MAILER RBC Distrib Width 12.1 11.8 - 07/06/2021 DTL 14.5 % 11:53 AM MAILER Platelet Count 236 135 - 317 07/06/2021 DTL x10(9)/L 11:53 AM MAILER Leukocytes 9.9 (H) 3.4 - 9.6 07/06/2021 DTL x10(9)/L 11:53 AM MAILER Specimen Anatomical Collection Method Collection Time Receive d Time (Source) Location / / Volume Laterality Blood (Blood, 07/06/2021 11:10 07/06/2021 Venous) AM MAILER 11:45 AM MAILER Rodrigo Gray M.D., Ph.D. LAB BLOOD ADD-ON Performing Organization Address City/State/ZIP Code Phon e Number [facility] - [address] [place], [place] [address] [facility] [place] [address] [facility] 200 [facility] Basic Metabolic Panel (07/06/2021 11:09 AM MAILER) P athologist Signature Potassium, S 4.7 3.6 - 5.2 07/06/2021 DTL mmol/L 12:20 PM MAILER Sodium, S 143 135 - 145 07/06/2021 DTL mmol/L 12:20 PM MAILER Chloride, S 103 98 - 107 07/06/2021 DTL mmol/L 12:20 PM MAILER Bicarbonate, S 28 22 - 29 07/06/2021 DTL mmol/L 12:20 PM MAILER Anion Gap 12 7 - 15 07/06/2021 DTL 12:20 PM MAILER BUN (Blood Urea 8 8 - 24 07/06/2021 DTL Nitrogen), S mg/dL 12:20 PM MAILER Creatinine, S 0.98 0.74 - 1.35 07/06/2021 DTL mg/dL 12:20 PM MAILER eGFR-Non >90 >=60 07/06/2021 DTL Black/ mL/min/BSA 12:20 PM MAILER [place] Comment: ----ADDITIONAL INFORMATION---- Estimated GFR calculated using the 2009 CKD_EPI creatinine equation. eGFR-Black/ >90 >=60 mL/min/BSA 2021 12:20 PM MAILER DTL Comment: ----ADDITIONAL INFORMATION---- Estimated GFR calculated using the 2009 CKD_EPI creatinine equation. Calcium, Total, S 9.7 8.6 - 10.0 mg/dL 07/06/2021 12:2 0 PM MAILER DTL Glucose, S 99 70 - 140 mg/dL 07/06/2021 12:20 PM MAILER DTL Specimen Anatomical Collection Method Collection Time Receive d Time (Source) Location / / Volume Laterality Blood (Blood, 07/06/2021 11:09 07/06/2021 Venous) AM MAILER 11:56 AM MAILER Rodrigo Gray M.D., Ph.D. LAB BLOOD ADD-ON Performing Organization Address City/State/ZIP Code Phon e Number [facility] - [address] [place], [place] [address] [facility] [place] [address] [address] DX Chest AP or PA and Lateral 2 Views (07/06/2021 10:50 AM MAILER) Anatomical Region Laterality Modality Chest, Thoracic RST LOS, Thoracic ARZ LOS, Thoracic N/A Digital Radiography FLA LOS Specimen (Source) Anatomical Collection Method Collection Time Re ceived Time Location / / Volume Laterality 07/06/2021 10:52 AM MAILER Impressions 07/06/2021 11:36 AM MAILER No change since 02/19/2021. Negative [facility] ?? Narrative 07/06/2021 11:36 AM MAILER EXAM: ??DX CHEST AP OR PA AND LATERAL 2 VIEWS Procedure Note Gato Conway M.D. - 07/06/2021Formatt ing of this note might be different from the original. EXAM: DX CHEST AP OR PA AND LATERAL 2 EWS IMPRESSION: No change since 02/19/2021. Negative [facility]. Rodrigo Gray M.D., Ph.D. IMG DIAGNOSTIC SANDHYA GING PROCEDURES SARS CoV-2 RNA, PCR, Varies Asymptomatic (07/06/2021 10:42 AM MAILER) [facility] Method Time Signature SARS CoV-2 Swab, 07/06/2021 DTL RNA, PCR, Nasopharynx 5:04 PM MAILER Source SARS CoV-2 Undetected Undetected 07/06/2021 DTL RNA, PCR 5:04 PM MAILER Comment: SARS-CoV-2 RNA absent. This result does [...] Drug Administration an d is used per mimeographer's instructions. Performance characteristics were verified by [facility] in a manner consistent with CLIA requirements. Visit the CDC website: https://www.cdc.g ov/coronavirus/ for the most recent guidelines on Coron avirus testing. Fact Sheet for Healthcare Providers: https://www.fda.gov/media/861110/downloa d Fact Sheet for Patients: https://www.fda.gov/media/905295/downloa d Specimen Anatomical Collection Method Collection Time Receive d Time (Source) Location / / Volume Laterality Varies 07/06/2021 10:42 07/06/2021 (Nasopharynx) AM MAILER 11:47 AM MAILER Rodrigo Gray M.D., Ph.D. LAB MICROBIOLOGY - GENERAL ORDERABLES Performing Organization Address City/State/ZIP Code Phon e Number [facility] - [address] [place], [place] [address] [facility] [place] [address] Laboratories-[facility] [address] (TTE) 2D ECHO DOPPLER COLOR (07/06/2021 8:49 AM MAILER) [facility] Method Time Signature Ejection Fraction 55 [...] / / Volume Laterality 07/06/2021 7:40 AM MAILER Impressions 07/06/2021 2:57 PM MAILER LEFT VENTRICLE:Normal left ventricular chamber size. Normal [...] effusion. For the complete report, see the [facility] Documents. Narrative 07/06/2021 2:57 PM MAILER For the complete report, see the Order-Level [...] original. For the complete report, see the [facility] [employer] Documents. Final Impressions 1. Normal left ventricular [...] COVID19 Pending 07/06/2021 07/06/2021 07/06/2021 5:05 PM MAILER Assessment Noted Time PHQ-9 Depression Total Score: 11 09/09/2015 4:10 PM CD T documented as of this encounter Care Teams Field Project Manager Relationship Specialty Start Date End Date Elsewhere, Pcp PCP - General Internal Medicine 07/04/21 documented as of this encounter
--- OUTSIDE RECORDS SUMMARY | 2022-01-16 18:22 | XMS_ITS | Encounter Summary ---
:1990 Author Organization [facility] Address [address] [place] [address] Care Team Providers Name Role Phone Elsewhere, Pcp Primary Care Provider Unavailable Reason for Visit Appointment Request (Routine) - Closed Specialty Diagnoses / Procedures Referred By Referred To Contact Contact Cardiovascular Disease Diagnoses Tachycardia Supraventricular (HCC) Referral ID Status Reason Start Date Expiration Date Visits Requ ested Visits Authorized [id number] Closed 05/26/2021 05/26/2022 1 1 Encounter Details Date Type Department Care Team Description 07/06/2021 Office Visit Department of Meseret Kyle Cardiovascular Medicine AYAKA Parker Supr aventricular (HCC) in [facility] blayne OkeefeNJeremieP., M.S.N. (Primary Dx) [address] [place] [address] [address] [place] [phone] Social History Tobacco Use Types Packs/Day Years [...] er 07/18/2021 How often do you attend restoration or druze services? 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 documented as of this encounter Last Filed Vital Signs Vital Sign Reading Time Taken Comments Blood Pressure 129/82 07/06/2021 1:55 PM [employer] FORCES WEAPONS SERGEANT Pulse 127 07/06/2021 1:55 PM [employer] WEAPONS SERGEANT Temperature - - Respiratory Rate - - Oxygen Saturation - - Inhaled Oxygen Concentration - - Weight 83 kg (182 lb 15.7 oz) 07/06/2021 1:55 PM [employer] WEAPONS SERGEANT Height 172 cm (5' 7.72) 07/06/2021 1:55 PM [employer]CES WEAPONS SERGEANT Body Mass Index 28.06 07/06/2021 1:55 PM [employer] WEAPONS SERGEANT documented in this encounter Progress Notes Meseret [...] history is well documented in a prior plc-cufi-vm-face visit with Dr. Donald on 05/25/2021. In [...] He has followed with Dr. Gonzalez at [facility] who has noted no documented SVT [...] Allergies Allergen Reactions ??? Kiwi Anaphylaxis ??? Dassel Anaphylaxis ??? Spencer Flavor Other (see comments) [...] comments) ??? Lemon Other (see comments) ??? [place]vi Other (see comments) ??? Multivitamin With Iron,Other Minerals Other (see comments) COLD SORE REACTION TO VARIOUS/NUMEROUS ??? [place] Other (see comments) ??? Jeremiah Other (see comments) ??? Choline Other (see [...] 10 mg by mouth at bedtime. ??? zbmzfgszwbaw-Ae-dxxa-minerals tablet, Take 1 tablet by mouth as [...] & Screen Expiration 07/09/2021 23:59 Testing Location [place] ASSESSMENT / PLAN #1 Tachycardia Supraventricular (HCC) [...] in for procedurereport time, a map of [facility], the need to have a delivery driver/supervisor, typical procedure length and recovery time, post procedure activity and driving limitations, and when to hold food and fluids. Mr. Rainey was advised to make the following changes to medications: None. Mr. 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 Meseret Kyle APRN, C.N.P., M.S.N. 07/06/2021 IAL FORCES WEAPONS SERGEANT documented in this encounter Plan of Treatment Not on filedocumented as of this encounter Visit Diagnoses Diagnosis Tachycardia Supraventricular (HCC) - [facility] documented in this encounter Additional Health Concerns Infection Onset Date Last Indicated Resolved Time COVID19 Pending 07/06/2021 07/06/2021 07/06/2021 5:05 PM [employer] WEAPONS SERGEANT Assessment Noted Time PHQ-9 Depression Total Score: 11 09/09/2015 4:10 PM CD T documented as of this encounter Care Teams Lineworker Relationship Specialty Start Date End Date Elsewhere, Pcp PCP - General Internal Medicine 07/04/21 documented as of this encounter
--- OUTSIDE RECORDS SUMMARY | 2022-01-16 18:22 | XMS_ITS | Encounter Summary ---
:1990 Author Organization [facility] Address [address] [place] [address] Care Team Providers Name Role Phone Unavailable Primary Care Provider Unavailable Encounter Details Date Type Department Care Team Description 10/05/2020 Orders Only [facility] PCP [facility] Sa rubina Lancaster M.D. [address] [place], [place] [phone] (Wo rk) Social History [...] How often do you attend anabaptist or adventism services? Never 07/18/2021 Do you belong to [...] slept in a group home (including now)? 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
--- OUTSIDE RECORDS SUMMARY | 2022-01-16 18:22 | XMS_ITS | Encounter Summary ---
:1990 Author Organization [facility] Address [address] [place] [address] Care Team Providers Name Role Phone Unavailable Primary Care Provider Unavailable Reason for Visit Reason Comments Medication Question Encounter Details Date Type Department Care Team Description 06/14/2021 Clinical Department of Shabana, Medication Communication Cardiovascular Rodrigo Arias, Question Medicine in M.D., Ph.D. [address] [place] [phone] Social History Tobacco Use Types Packs/Day Years [...] er 07/18/2021 How often do you attend nondenominational or denominational services? Never 07/18/2021 Do you belong to any clubs or organizations such as nondenominational N o 07/18/2021 groups, unions, fraternal or [...] place to sleep or slept in a custodial (including now)? Education Answer Date Recorded What is the highest level of school you have GED or equivale nt 05/20/2021 completed or the highest degree you have received? 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 WARE DESIGN MANAGER Telephone Encounter - Sameera Luong - 06/14/2021 3:04 PM CST SUBJECTIVE CHIEF COMPLAINT / REASON FOR CALL Medication Question Name of caller: Mr. Luisito Rainey (patient) Patient expects communication via portal: No Phone number: [phone] (he may be at work and unable [...] any change is needed for his Corlanor WARE DESIGN MANAGER documented in this encounter Plan of Treatment Not on filedocumented as of this encounter Visit Diagnoses Not on filedocumented in this encounter Additional Health Concerns Assessment Noted Time PHQ-9 Depression Total Score: 11 09/09/2015 4:10 PM CD T documented as of this encounter
--- OUTSIDE RECORDS SUMMARY | 2022-01-16 18:22 | XMS_ITS | Encounter Summary ---
:1990 Author Organization [facility] Address [address] [place] [address] Care Team Providers Name Role Phone Elsewhere, Pcp Primary Care Provider Unavailable Reason for Visit Auth/Cert Specialty Diagnoses / Procedures Referred By Contact Refer red To Contact Diagnoses Tachycardia Supraventricular (HCC) Procedures SD EP EVAL W SUPRAVENT ABLATE DIAGNOSTIC EPS ABLATION - SVT Referral ID Status Reason Start Date Expiration Date Visits Requ ested Visits Authorized [id number] 1 1 Encounter Details Date Type Department Care Team Description 07/07/2021 Surgery Division of Cardiovascular [facility] DIAGNOSTIC EPS Diseases in Juana Diaz M.D., Ph.D. [place] [address] [place] [id number] [place] [address] [phone] Social History Tobacco Use Types Packs/Day Years [...] er 07/18/2021 How often do you attend congregation or christian services? 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 documented as of this encounter Last Filed Vital Signs Vital Sign Reading Time Taken Comments Blood Pressure 98/43 07/07/2021 12:45 PM STATION WORKER Pulse 101 07/07/2021 12:45 PM STATION WORKER Temperature 36.9 ??C (98.5 ??F) 07/07/2021 7:18 AM STATION WORKER Respiratory Rate - - Oxygen Saturation 100% 07/07/2021 12:45 PM STATION WORKER Inhaled Oxygen Concentration - - Weight - - Height - - Body Mass Index - - documented in this encounter Discharge Instructions Discharge InstructionsFYanna prescott - 07/07/2021 12:26 PM CST You were discharged from the [facility] CVD Interventional/Heart Rhythm Service. Please identify [...] 4:00 p.m., contact the Electrophysiology Service at [phone]. For questions occurring after business hours, on weekends, nights, or holidays call [phone] and ask for Electrophysiology Replanting Machine Operator. Heart Failure Assessment: Weigh yourself at the [...] avoid/skip your follow-up appointments, they are important! ION WORKER documented in this encounter Medications at Time [...] mouth at 0 03/01/20 21 tablet bedtime. [id number] Take 1 tablet by mouth 0 -minerals [...] instructions were reviewed in detail as per [id number] with patient and family and they verbalized understanding. Follow up appointment is arranged. Patient was dismissed when discharge criteria was met, accompanied byfriendAll questions answered. ION WORKER documented in this encounter Plan of Treatment Not on filedocumented as of this encounter Procedures Procedure Name Priority Date/Time Associated Diagnosis Comme nts ECG Routine 07/07/2021 11:37 Results for this AM STATION WORKER procedure are i n the results section. HEART RHYTHM Routine 07/07/2021 10:57 Tachycardia Results for this PROCEDURE AM STATION WORKER Supraventricular (HCC) proce dure are in the results section. ACT, POCT, B Routine 07/07/2021 10:45 Results for this AM STATION WORKER procedure are i n the results section. ACT, POCT, B Routine 07/07/2021 10:07 Results for this AM STATION WORKER procedure are i n the results section. ACT, POCT, B Routine 07/07/2021 9:40 Results for this AM STATION WORKER procedure are i n the results section. ACT, POCT, B Routine 07/07/2021 9:22 Results for this AM STATION WORKER procedure are i n the results section. ABG AND LYTES Routine 07/07/2021 9:19 Results for this EG6+, POCT, B AM STATION WORKER procedure are in the results section. documented in this encounter Results ECG 12 Lead (07/07/2021 11:37 AM STATION WORKER) P athologist Signature Ventricular Rate 92 BPM MUSE ECG/Min SD Interval 144 ms MUSE QRSD Interval 90 ms MUSE QT Interval 346 ms MUSE QTC Interval 427 ms MUSE P [place] 51 degrees MUSE R [place] -3 degrees MUSE T Wave [place] 43 degrees MUSE Specimen Anatomical Collection Method Collection Time Receive d Time (Source) Location / / Volume Laterality 07/07/2021 11:37 07/07/2021 AM STATION WORKER 11:38 AM STATION WORKER Impressions MUSE - 07/07/2021 11:38 AM STATION WORKER Normal sinus rhythm Normal ECG When compared [...] MUSE NA DIAGNOSTIC EPS (07/07/2021 10:57 AM STATION WORKER) Anatomical Region Laterality Modality X-Ray Angiography Specimen (Source) Anatomical Collection Method Collection Time Re ceived Time Location / / Volume Laterality 07/07/2021 8:38 AM STATION WORKER Narrative 07/07/2021 11:38 AM STATION WORKER For the complete report, see the Order-L [...] report, see the Order-L evel Documents. Rodrigo Grya M.D., Ph.D. CV ELECTROPHYSIOLO GY PROCS ACT (Activated Clotting Time), POCT (07/07/2021 10:45 AM STATION WORKER) P athologist Signature Activated 114 84 - 139 07/07/2021 PCSM Clotting Time, sec 10:52 AM STATION WORKER POCT Specimen Anatomical Collection Method Collection Time Receive d Time (Source) Location / / Volume Laterality Blood 07/07/2021 10:45 07/07/2021 AM STATION WORKER 10:53 AM STATION WORKER Unknown Provider LAB POCT ORDERABLES - DEVICE Performing Organization Address City/State/ZIP Code Phon e Number POC [facility] [address] [place], [place] [address] LABS PCSM [facility] [place] [address] [place] POC [address] (ABNORMAL) ACT (Activated Clotting Time), POCT (07/07/2021 10:07 AM STATION WORKER) P athologist Signature Activated 211 (H) 84 - 139 07/07/2021 PCSM Clotting Time, sec 10:16 AM STATION WORKER POCT Specimen Anatomical Collection Method Collection Time Receive d Time (Source) Location / / Volume Laterality Blood 07/07/2021 10:07 07/07/2021 AM STATION WORKER 10:17 AM STATION WORKER Unknown Provider LAB POCT ORDERABLES - DEVICE Performing Organization Address City/State/ZIP Code Phon e Number POC [facility] [address] [place], [place] [address] [place] [address] [place] POC [address] (ABNORMAL) ACT (Activated Clotting Time), POCT (07/07/2021 9:40 AM STATION WORKER) P athologist Signature Activated 211 (H) 84 - 139 07/07/2021 PCSM Clotting Time, sec 9:49 AM STATION WORKER POCT Specimen Anatomical Collection Method Collection Time Receive d Time (Source) Location / / Volume Laterality Blood 07/07/2021 9:40 AM 2 9:49 STATION WORKER AM STATION WORKER Unknown Provider LAB POCT ORDERABLES - DEVICE Performing Organization Address City/[facility] Phon e Number POC [facility] [address] [place], [place] [address] [place] [address] [place] POC [address] (ABNORMAL) ACT (Activated Clotting Time), POCT (07/07/2021 9:22 AM STATION WORKER) P athologist Signature Activated 216 (H) 84 - 139 07/07/2021 PCSM Clotting Time, sec 9:33 AM STATION WORKER POCT Specimen Anatomical Collection Method Collection Time Receive d Time (Source) Location / / Volume Laterality Blood 07/07/2021 9:22 AM 2 9:33 STATION WORKER AM STATION WORKER Unknown Provider LAB POCT ORDERABLES - DEVICE Performing Organization Address City/[facility]/ZIP [facility] Phon e Number POC [facility] [address] [place], [place] [address] [place] [address] [place] POC [address] (ABNORMAL) ABG and Lytes, POCT (07/07/2021 9:19 AM STATION WORKER) P athologist Signature Sample Site, Artline 07/07/2021 PCLX POCT 9:33 AM STATION WORKER Comment: ----ADDITIONAL INFORMATION---- Performed at the Point of Care pH, POCT 7.34 (L) 7.35 - 7.45 07/07/2021 9:33 AM STATION WORKER PCLX Comment: ----ADDITIONAL INFORMATION---- Performed at the Point of Care pCO2, POCT 51 (H) 35 - 48 mm Hg 07/07/2021 9:33 AM STATION WORKER PC LX Comment: ----ADDITIONAL INFORMATION---- Performed at the Point of Care pO2, POCT 151 (H) 83 - 108 mm Hg 07/07/2021 9:33 AM STATION WORKER PC LX Comment: ----ADDITIONAL INFORMATION---- Performed at the Point of Care Base, POCT 2 -2 - 3 mmol/L 07/07/2021 9:33 AM STATION WORKER PC LX Comment: ----ADDITIONAL INFORMATION---- Performed at the Point of Care HCO3, POCT 28 (H) 22 - 26 mmol/L 07/07/2021 9:33 AM STATION WORKER P CLX Comment: ----ADDITIONAL INFORMATION---- Performed at the Point of Care Sodium, POCT, B 140 135 - 145 mmol/L 07/07/2021 9:33 A M STATION WORKER PCLX Comment: ----ADDITIONAL INFORMATION---- Performed at the Point of Care Potassium, POCT, B 3.5 (L) 3.6 - 5.2 mmol/L 07/07/2021 9:3 3 AM STATION WORKER PCLX Comment: ----ADDITIONAL INFORMATION---- Performed at the Point of Care Hematocrit, POCT, B 41.0 38.3 - 48.6 % 07/07/2021 9:33 AM STATION WORKER PCLX Comment: ----ADDITIONAL INFORMATION---- Performed at the Point of Care Specimen Anatomical Collection Method Collection Time Receive d Time (Source) Location / / Volume Laterality Blood 07/07/2021 9:19 AM 9:33 STATION WORKER AM STATION WORKER Unknown Provider LAB POCT ORDERABLES - DEVICE Performing Organization Address City/State/ZIP Code Phon e Number POC [facility] [address] [place] [address] [facility] [place] [address] [place] POC [address] documented in [...] 120 mg (CARDIZEM Given 07/07/2021 2:46 PM STATION WORKER 120 mg CD/CARTIA XT) 120 mg, oral, Once, On Sat07/07/21 at 1430, For 1 dose, PACU (only), Swallow whole. Do NOT crush, chew or open capsule. erythromycin 5 mg/gram (0.5 %) ophthalmic Given 07/07/2021 2:46 PM STATION WORKER 1 cm ointment 1 cm (ROMYCIN) 1 [...] (1 %) injection Given 07/07/2021 10:46 AM STATION WORKER 10 mL Bilateral (XYLOCAINE) As needed, Starting on Sat07/07/21 at 0838, Intraprocedure (CV) Given 07/07/2021 8:39 AM STATION WORKER 10 mL Right Groin Given 07/07/2021 8:38 AM STATION WORKER 10 mL Left Groin LORazepam (ATIVAN) 1 mg tablet - ADS Ove rride Pull Starting on Sat07/07/21 at 1148, For 1 dose, Created b y cabinet override LORazepam tablet 1 mg (ATIVAN) Given 07/07/2021 12:25 PM STATION WORKER 1 mg 1 mg, oral, Once, On Sat07/07/21 at 1145, For 1 dose, PACU (only) nicotine polacrilex (NICORETTE) 2 mg gum - ADS Override Pull Starting on Sat07/07/21 at 1147, For 1 dose, Created b y cabinet override nicotine polacrilex gum 4 mg (NICORETTE) Given 07/07/2021 12:26 PM STATION WORKER 4 mg 4 mg, buccal, Every 1 [...] Recently Administered Medications Times are shown in STATION WORKER. Scheduled Medication Order 07/05/2021 07/06/2021 07/07/2021 [email or web address] [...] as of this encounter Care Teams Field Crew Chief Relationship Specialty Start Date End Date Elsewhere, Pcp PCP - General Internal Medicine 07/04/21 documented as of this encounter
--- OUTSIDE RECORDS SUMMARY | 2022-01-16 18:22 | XMS_ITS | Encounter Summary ---
:1990 Author Organization [facility] Address [address] [place] [address] Care Team Providers Name Role Phone Elsewhere, Pcp Primary Care Provider Unavailable Reason for Visit Auth/Cert Specialty Diagnoses / Procedures Referred By Contact Refer red To Contact Diagnoses Tachycardia Supraventricular (HCC) Procedures LA EP EVAL W SUPRAVENT ABLATE DIAGNOSTIC EPS ABLATION - SVT Referral ID Status Reason Start Date Expiration Date Visits Requ ested Visits Authorized [id number] 1 1 Encounter Details Date Type Department Care Team Description 07/07/2021 Hospital Division of [place], Tachycardia Sup raventricular (HCC); Encounter Cardiovascular Rodrigo Arias Tachbeniardi a Supraventricular (HCC) Diseases in M.D., Ph.D. [place], [place] [address] [facility] [address] [place] [phone] Social History Tobacco Use Types Packs/Day Years [...] How often do you attend jew or confucianism services? 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 documented as of this encounter Last Filed Vital Signs Vital Sign Reading Time Taken Comments Blood Pressure 98/43 07/07/2021 12:45 PM EXPERIMENTAL MACHINIST Pulse 101 07/07/2021 12:45 PM EXPERIMENTAL MACHINIST Temperature 36.9 ??C (98.5 ??F) 07/07/2021 7:18 AM EXPERIMENTAL MACHINIST Respiratory Rate - - Oxygen Saturation 100% 07/07/2021 12:45 PM EXPERIMENTAL MACHINIST Inhaled Oxygen Concentration - - Weight - - Height - - Body Mass Index - - documented in this encounter Discharge Instructions Discharge InstructionsFYanna prescott - 07/07/2021 12:26 PM CST [facility]Heart Rhythm Service. Please identify this [...] 4:00 p.m., contact the Electrophysiology Service at [phone]. For questions occurring after business hours, on weekends, nights, or holidays call [phone] and ask for Electrophysiology Bending Press Operator. Heart Failure Assessment: Weigh yourself at [...] avoid/skip your follow-up appointments, they are important! RIMENTAL MACHINIST documented in this encounter Medications at Time [...] mouth at 0 03/01/20 21 tablet bedtime. [id number] Take 1 tablet by mouth 0 -minerals [...] instructions were reviewed in detail as per [id number] with patient and family and they verbalized understanding. Follow up appointment is arranged. Patient was dismissed when discharge criteria was met, accompanied byfriendAll questions answered. RIMENTAL MACHINIST documented in this encounter Plan of Treatment Not on filedocumented as of this encounter Procedures Procedure Name Priority Date/Time Associated Diagnosis Comme nts ECG Routine 07/07/2021 11:37 Results for this AM EXPERIMENTAL MACHINIST procedure are i n the results section. HEART RHYTHM Routine 07/07/2021 10:57 Tachycardia Results for this PROCEDURE AM EXPERIMENTAL MACHINIST Supraventricular (HCC) proce dure are in the results section. ACT, POCT, B Routine 07/07/2021 10:45 Results for this AM EXPERIMENTAL MACHINIST procedure are i n the results section. ACT, POCT, B Routine 07/07/2021 10:07 Results for this AM EXPERIMENTAL MACHINIST procedure are i n the results section. ACT, POCT, B Routine 07/07/2021 9:40 Results for this AM EXPERIMENTAL MACHINIST procedure are i n the results section. ACT, POCT, B Routine 07/07/2021 9:22 Results for this AM EXPERIMENTAL MACHINIST procedure are i n the results section. ABG AND LYTES Routine 07/07/2021 9:19 Results for this EG6+, POCT, B AM EXPERIMENTAL MACHINIST procedure are in the results section. documented in this encounter Results ECG 12 Lead (07/07/2021 11:37 AM EXPERIMENTAL MACHINIST) P athologist Signature Ventricular Rate 92 BPM MUSE ECG/Min LA Interval 144 ms MUSE QRSD Interval 90 ms MUSE QT Interval 346 ms MUSE QTC Interval 427 ms MUSE P [place] 51 degrees MUSE R [place] -3 degrees MUSE T Wave [place] 43 degrees MUSE Specimen Anatomical Collection Method Collection Time Receive d Time (Source) Location / / Volume Laterality 07/07/2021 11:37 07/07/2021 AM EXPERIMENTAL MACHINIST 11:38 AM EXPERIMENTAL MACHINIST Impressions MUSE - 07/07/2021 11:38 AM EXPERIMENTAL MACHINIST Normal sinus rhythm Normal ECG When compared [...] MUSE NA DIAGNOSTIC EPS (07/07/2021 10:57 AM EXPERIMENTAL MACHINIST) Anatomical Region Laterality Modality X-Ray Angiography Specimen (Source) Anatomical Collection Method Collection Time Re ceived Time Location / / Volume Laterality 07/07/2021 8:38 AM EXPERIMENTAL MACHINIST Narrative 07/07/2021 11:38 AM EXPERIMENTAL MACHINIST For the complete report, see the Order-L [...] (Activated Clotting Time), POCT (07/07/2021 10:45 AM EXPERIMENTAL MACHINIST) P athologist Signature Activated 114 84 - 139 07/07/2021 PCSM Clotting Time, sec 10:52 AM EXPERIMENTAL MACHINIST POCT Specimen Anatomical Collection Method Collection Time Receive d Time (Source) Location / / Volume Laterality Blood 07/07/2021 10:45 07/07/2021 AM EXPERIMENTAL MACHINIST 10:53 AM EXPERIMENTAL MACHINIST Unknown Provider LAB POCT ORDERABLES - DEVICE Performing Organization Address City/State/ZIP Code Phon e Number POC [facility] [address] [place], [place] [address] [place] [address] [place] POC [address] (ABNORMAL) ACT (Activated Clotting Time), POCT (07/07/2021 10:07 AM EXPERIMENTAL MACHINIST) P athologist Signature Activated 211 (H) 84 - 139 07/07/2021 PCSM Clotting Time, sec 10:16 AM EXPERIMENTAL MACHINIST POCT Specimen Anatomical Collection Method Collection Time Receive d Time (Source) Location / / Volume Laterality Blood 07/07/2021 10:07 07/07/2021 AM EXPERIMENTAL MACHINIST 10:17 AM EXPERIMENTAL MACHINIST Unknown Provider LAB POCT ORDERABLES - DEVICE Performing Organization Address City/[facility] Phon e Number POC [facility] [address] [place], [place] [address] [place] [address] [place] POC [address] (ABNORMAL) ACT (Activated Clotting Time), POCT (07/07/2021 9:40 AM EXPERIMENTAL MACHINIST) P athologist Signature Activated 211 (H) 84 - 139 07/07/2021 PCSM Clotting Time, sec 9:49 AM EXPERIMENTAL MACHINIST POCT Specimen Anatomical Collection Method Collection Time Receive d Time (Source) Location / / Volume Laterality Blood 07/07/2021 9:40 AM 2 9:49 EXPERIMENTAL MACHINIST AM EXPERIMENTAL MACHINIST Unknown Provider LAB POCT ORDERABLES - DEVICE Performing Organization Address City/[facility] Phon e Number POC [facility] [address] [place], [place] [address] [place] [address] [place] [facility]OC [address] (ABNORMAL) ACT (Activated Clotting Time), POCT (07/07/2021 9:22 AM EXPERIMENTAL MACHINIST) P athologist Signature Activated 216 (H) 84 - 139 07/07/2021 PCSM Clotting Time, sec 9:33 AM EXPERIMENTAL MACHINIST POCT Specimen Anatomical Collection Method Collection Time Receive d Time (Source) Location / / Volume Laterality Blood 07/07/2021 9:22 AM 2 9:33 EXPERIMENTAL MACHINIST AM EXPERIMENTAL MACHINIST Unknown Provider LAB POCT ORDERABLES - DEVICE Performing Organization Address City/[facility] Phon e Number POC [facility] [address] [place], [place] [address] [place] [address] [place] POC [address] (ABNORMAL) ABG and Lytes, POCT (07/07/2021 9:19 AM EXPERIMENTAL MACHINIST) P athologist Signature Sample Site, Artline 07/07/2021 PCLX POCT 9:33 AM EXPERIMENTAL MACHINIST Comment: ----ADDITIONAL INFORMATION---- Performed at the Point of Care pH, POCT 7.34 (L) 7.35 - 7.45 07/07/2021 9:33 AM EXPERIMENTAL MACHINIST PCLX Comment: ----ADDITIONAL INFORMATION---- Performed at the Point of Care pCO2, POCT 51 (H) 35 - 48 mm Hg 07/07/2021 9:33 AM EXPERIMENTAL MACHINIST PC LX Comment: ----ADDITIONAL INFORMATION---- Performed at the Point of Care pO2, POCT 151 (H) 83 - 108 mm Hg 07/07/2021 9:33 AM EXPERIMENTAL MACHINIST PC LX Comment: ----ADDITIONAL INFORMATION---- Performed at the Point of Care Base, POCT 2 -2 - 3 mmol/L 07/07/2021 9:33 AM EXPERIMENTAL MACHINIST PC LX Comment: ----ADDITIONAL INFORMATION---- Performed at the Point of Care HCO3, POCT 28 (H) 22 - 26 mmol/L 07/07/2021 9:33 AM EXPERIMENTAL MACHINIST P CLX Comment: ----ADDITIONAL INFORMATION---- Performed at the Point of Care Sodium, POCT, B 140 135 - 145 mmol/L 07/07/2021 9:33 A M EXPERIMENTAL MACHINIST PCLX Comment: ----ADDITIONAL INFORMATION---- Performed at the Point of Care Potassium, POCT, B 3.5 (L) 3.6 - 5.2 mmol/L 07/07/2021 9:3 3 AM EXPERIMENTAL MACHINIST PCLX Comment: ----ADDITIONAL INFORMATION---- Performed at the Point of Care Hematocrit, POCT, B 41.0 38.3 - 48.6 % 07/07/2021 9:33 AM EXPERIMENTAL MACHINIST PCLX Comment: ----ADDITIONAL INFORMATION---- Performed at the Point of Care Specimen Anatomical Collection Method Collection Time Receive d Time (Source) Location / / Volume Laterality Blood 07/07/2021 9:19 AM 9:33 EXPERIMENTAL MACHINIST AM EXPERIMENTAL MACHINIST Unknown Provider LAB POCT ORDERABLES - DEVICE Performing Organization Address City/State/ZIP Code Phon e Number POC [facility] [address] [place] [address] PCLX [facility] [place] [address] [place] POC [address] documented in this [...] 120 mg (CARDIZEM Given 07/07/2021 2:46 PM EXPERIMENTAL MACHINIST 120 mg CD/CARTIA XT) 120 mg, oral, Once, On Sat07/07/21 at 1430, For 1 dose, PACU (only), Swallow whole. Do NOT crush, chew or open capsule. erythromycin 5 mg/gram (0.5 %) ophthalmic Given 07/07/2021 2:46 PM EXPERIMENTAL MACHINIST 1 cm ointment 1 cm (ROMYCIN) 1 [...] 1 mg (ATIVAN) Given 07/07/2021 12:25 PM EXPERIMENTAL MACHINIST 1 mg 1 mg, oral, Once, On Sat07/07/21 at 1145, For 1 dose, PACU (only) nicotine polacrilex (NICORETTE) 2 mg gum - ADS Override Pull Starting on Sat07/07/21 at 1147, For 1 dose, Created b y cabinet override nicotine polacrilex gum 4 mg (NICORETTE) Given 07/07/2021 12:26 PM EXPERIMENTAL MACHINIST 4 mg 4 mg, buccal, Every 1 [...] Recently Administered Medications Times are shown in EXPERIMENTAL MACHINIST. Scheduled Medication Order 07/05/2021 07/06/2021 07/07/2021 [email or web address] [...] documented as of this encounter Care Teams Furniture Upholsterer Relationship Specialty Start Date End Date Elsewhere, Pcp PCP - General Internal Medicine 07/04/21 documented as of this encounter
--- OUTSIDE RECORDS SUMMARY | 2022-01-16 18:22 | XMS_ITS | Encounter Summary ---
:1990 Author Organization [facility] Address [address] [place] [address] Care Team Providers Name Role Phone Unavailable Primary Care Provider Unavailable Reason for Visit Reason Comments Appointment medication questions pre pro cedure Encounter Details Date Type Department Care Team Description 06/20/2021 Clinical Department of [place] Appointment Communication Cardiovascular , [place] (medication Medicine in [facility] pre [place] procedure) [address] [place] [address] Social History Tobacco Use Types Packs/Day Years [...] How often do you attend baptist or episcopalian services? 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 - 06/22/2021 8:41 AM MANAGER OF RECRUITING INFORMATION DISCUSSED Called Mr Rainey to let [...] following references were used: nursing clinical judgement GER OF RECRUITING Telephone Encounter - Alba Valdez R.N. - 06/21/2021 2:39 PM MANAGER OF RECRUITING SUBJECTIVE Patient would like to know if [...] expects communication via portal: No Phone number: [phone] Request topic and what needs to be addressed? Medication Management ?? Goal or summary: stop or continue taking Corlanor ?? Medication/dose: Corlanor? ?? Additional comments: wanting recommendations. GER OF RECRUITING Telephone Encounter - Princess Macias M.S.N. R.N. - 06/21/2021 11:14 AM MANAGER OF RECRUITING Rodrigo Donald M.D., Ph.D. You 17 hours [...] following references were used: provider Dr. Donald GER OF RECRUITING Telephone Encounter - Yee Shields - 06/20/2021 4:58 PM MANAGER OF RECRUITING SUBJECTIVE CHIEF COMPLAINT / REASON FOR CALL [...] Appointment Services Specialist Division of Cardiovascular Diseases [address] [id number] [email or web address] P RST CVD DEVICE SCHEDULING P RST CVD HRS SCHEDULING GER OF RECRUITING documented in this encounter Plan of Treatment Not on filedocumented as of this encounter Visit Diagnoses Not on filedocumented in this encounter Additional Health Concerns Assessment Noted Time PHQ-9 Depression Total Score: 11 09/09/2015 4:10 PM CD T documented as of this encounter
--- OUTSIDE RECORDS SUMMARY | 2022-01-16 18:22 | XMS_ITS | Encounter Summary ---
:1990 Author Organization [facility] Address [address] [place] [address] Care Team Providers Name Role Phone Elsewhere, Pcp Primary Care Provider Unavailable Encounter Details Date Type Department Care Team Description 07/06/2021 Hospital Department of [place], Tachycardia Encounter Radiology, Corea Rodrigo Arias Supravent ricular (HCC) dakota Daniel M.D., Ph.D. [place], [address] [place] [address] [place] [address] [place], [place] [phone] (Work) [phone] Social History Tobacco Use Types Packs/Day Years [...] How often do you attend gnosticist or rastafari services? 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 [id number] Take 1 tablet by mouth 0 -minerals [...] AND LATERAL 2 (most inpatients 10:50 AM WAREHOUSE FREIGHT HANDLER Supraventricular (HC C) this procedure VIEWS and all are in the outpatients) results section. documented in this encounter Results DX Chest AP or PA and Lateral 2 Views (07/06/2021 10:50 AM WAREHOUSE FREIGHT HANDLER) Anatomical Region Laterality Modality Chest, Thoracic RST LOS, Thoracic ARZ LOS, Thoracic N/A Digital Radiography FLA LOS Specimen (Source) Anatomical Collection Method Collection Time Re ceived Time Location / / Volume Laterality 07/06/2021 10:52 AM WAREHOUSE FREIGHT HANDLER Impressions 07/06/2021 11:36 AM WAREHOUSE FREIGHT HANDLER No change since 02/19/2021. Negative leslie [facility] ?? Narrative 07/06/2021 11:36 AM WAREHOUSE FREIGHT HANDLER EXAM: ??DX CHEST AP OR PA AND [...] COVID19 Pending 07/06/2021 07/06/2021 07/06/2021 5:05 PM WAREHOUSE FREIGHT HANDLER Assessment Noted Time PHQ-9 Depression Total Score: 11 09/09/2015 4:10 PM CD T documented as of this encounter Care Teams Sat Tutor Relationship Specialty Start Date End Date Elsewhere, Pcp PCP - General Internal Medicine 07/04/21 documented as of this encounter
--- OUTSIDE RECORDS SUMMARY | 2022-01-16 18:22 | XMS_ITS | Encounter Summary ---
:1990 Author Organization [facility] Address [address] [place] [address] Care Team Providers Name Role Phone Unavailable Primary Care Provider Unavailable Reason for Visit Outpatient (Routine) - Canceled Specialty Diagnoses / Procedures Referred By Contact Refer red To Contact Diagnoses Tachycardia Supraventricular (HCC) Rodrigo Gray V., [facility] Procedures ECG Event Recorder Karley, Ph.D. [address] [place] [address] Referral ID Status Reason Start Date Expiration Date Visits V isits Requested Authorized [id number] Canceled 05/25/2021 05/25/2022 1 1 Encounter Details Date Type Department Care Team Description 05/26/2021 Hospital Division of [place], Tachycardia Encounter Cardiovascular Rodrigo Arias, Supraventr icular (HCC) Diseases in Karley, Ph.D. [place], [place] [address] [facility] [address] [place] [phone] Social History Tobacco Use Types Packs/Day Years [...] er 07/18/2021 How often do you attend quaker or evangelical services? 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 syringe LORazepam (ATIVAN) 1 Take 1 tablet by mouth 0 mg tablet as needed. melatonin 10 mg Take 10 mg by mouth at 0 03/01/20 21 tablet bedtime. hrjgdwueuyjx-Ns-hthf Take 1 tablet by mouth 0 -minerals [...]
--- OUTSIDE RECORDS SUMMARY | 2022-01-16 18:22 | XMS_ITS | Encounter Summary ---
:1990 Author Organization [facility] Address [address] [place] [address] Care Team Providers Name Role Phone Unavailable [...] er 07/18/2021 How often do you attend oriental orthodox or advent services? Never 07/18/2021 Do you belong to any clubs or organizations such as oriental orthodox N o 07/18/2021 groups, unions, fraternal [...] place to sleep or slept in a nursing home (including now)? 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
--- OUTSIDE RECORDS SUMMARY | 2022-01-16 18:22 | XMS_ITS | Encounter Summary ---
:1990 Author Organization [facility] Address [address] [place] [address] Care Team Providers Name Role Phone Unavailable [...] er 07/18/2021 How often do you attend confucianist or congregational services? Never 07/18/2021 Do you belong to any clubs or organizations such as confucianist N o 07/18/2021 groups, unions, fraternal or [...] or slept in a custodial (including now)? 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
--- OUTSIDE RECORDS SUMMARY | 2022-01-16 18:22 | XMS_ITS | Encounter Summary ---
:1990 Author Organization [facility] Address [address] [place] [address] Care Team Providers Name Role Phone Elsewhere, Pcp Primary Care Provider Unavailable Reason for Visit Reason Comments Rapid Heart Rate Pt called remote monitoring to talk about his elevated HR Encounter Details Date Type Department Care Team Description 07/03/2021 Documentation RST CCM Kaci Colvin Rapid Heart Rate (Pt [address] [facility] AYAKA Borjas, C.N.P., called remote [place], [place] M.S.N. monitoring to talk [phone] about his eleva leeann HR) Social History [...] er 07/18/2021 How often do you attend denominational or catholic services? 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 Upon review of monitor per personnel monitor his highest rate was 147 today in an SVT. Due to pts concern, I contacted this patient at the following phone number: [phone] He reported that he was awake at [...] his BB. Kaci Colvin APRN, C.N.P., M.S.N. [facility] Pager: [phone] ([facility]ICU CANNON FIRE DIRECTION SPECIALIST) LEWARE ADMINISTRATOR Rodrigo Donald M.D., Ph.D. - 07/03/2021 9:04 [...] not unreasonable to take a prn dose LEWARE ADMINISTRATOR documented in this encounter Plan of Treatment Not on filedocumented as of this encounter Visit Diagnoses Not on filedocumented in this encounter Additional Health Concerns Assessment Noted Time PHQ-9 Depression Total Score: 11 09/09/2015 4:10 PM CD T documented as of this encounter Care Teams Shoe Dresser Relationship Specialty Start Date End Date Elsewhere, Pcp PCP - General Internal Medicine 07/04/21 documented as of this encounter
--- OUTSIDE RECORDS SUMMARY | 2022-01-16 18:22 | XMS_ITS | Encounter Summary ---
:1990 Author Organization [facility] [place] [facility] Address [address] [place] [address] Care Team Providers Name Role Phone Elsewhere, Pcp Primary Care Provider Unavailable Encounter Details Date Type Department Care Team Description 07/04/2021 Clinical Communication Department of Nakul Tsang Cardiovascular Medicine Kilo Johnson in [facility] [phone] [address] [facility] [[email or web address]] (Work) [place] [address] Social History Tobacco Use Types Packs/Day Years [...] er 07/18/2021 How often do you attend adventism or cheondoism services? 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 documented as of this encounter Miscellaneous [...] not unreasonable to take a prn dose STANT PRODUCTION MANAGER documented in this encounter Plan of Treatment Not on filedocumented as of this encounter Visit Diagnoses Not on filedocumented in this encounter Additional Health Concerns Infection Onset Date Last Indicated Resolved Time COVID19 Pending 07/06/2021 07/06/2021 07/06/2021 5:05 PM ASSISTANT PRODUCTION MANAGER Assessment Noted Time PHQ-9 Depression Total Score: 11 09/09/2015 4:10 PM CD T documented as of this encounter Care Teams Etl Application Developer Relationship Specialty Start Date End Date Elsewhere, Pcp PCP - General Internal Medicine 07/04/21 documented as of this encounter
--- OUTSIDE RECORDS SUMMARY | 2022-01-16 18:22 | XMS_ITS | Encounter Summary ---
:1990 Author Organization [facility] Address [address] [place] [address] Care Team Providers Name Role Phone Unavailable [...] er 07/18/2021 How often do you attend moravian or baptist services? Never 07/18/2021 Do you belong to any clubs or organizations such as moravian N o 07/18/2021 groups, unions, fraternal or [...] slept in a long term (including now)? 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
--- OUTSIDE RECORDS SUMMARY | 2022-01-16 18:22 | XMS_ITS | Encounter Summary ---
:1990 Author Organization [facility] Address [address] [place] [address] Care Team Providers Name Role Phone Unavailable [...] How often do you attend jew or gnosticist services? Never 07/18/2021 Do you belong to [...] place to sleep or slept in a longterm (including now)? Sex Assigned at Date Recorded Male 06/01/2020 11:57 AM ABATEMENT WORKER documented as of this encounter Last [...] Depression Total Score: 2 08/08/2012 9:30 PM ABATEMENT WORKER documented as of this encounter
--- OUTSIDE RECORDS SUMMARY | 2022-01-16 18:23 | XMS_ITS | Clinical Summary ---
:1990 [facility] Address [address] [place] [address] Care Team Providers Name Role Phone Found, [...] for each transition of care or referral. [employer] Allergies Active Allergy Reactions Severity Noted Date Comments Ascorbate Unknown 01/12/2021 Bioflavonoids Unknown 01/12/2021 Cephalexin Unknown 01/12/2021 Choline Fenofibrate Unknown 01/12/2021 Inositol Unknown 01/12/2021 Kiwi Extract Anaphylaxis High 01/12/2021 Lemon Flavor Unknown 01/12/2021 Lemon Oil Unknown 01/12/2021 Fitzpatrick Flavor Unknown High 01/12/2021 Fitzpatrick Niacinamide Unknown 01/12/2021 Pantothenic Acid Unknown 01/12/2021 [...] ss Type Group BCBS BCBS OUT OF [id number] 2019-Present [address] [address] [place] [address] [address] (Home) [address] [place] [address] Luisito Rainey Personal/Family Self 1990 [address] (Home) [address] [place] [address] Luisito Rainey Personal/Family Self 1990 [address] (Home) [address] [facility] [place] [address] Advance Directives Latest Code Status on File Code Status Date Activated Date Inactivated Comments Full Code 01/12/2021 10:57 AM 01/16/2021 4:39 PM Care Teams Cone Classifier Tender Relationship Specialty Start Date End Date Found, No Pcp, PCP - General 04/11/21 [address] [place] [address]
--- OUTSIDE RECORDS SUMMARY | 2022-01-16 18:23 | XMS_ITS | Encounter Summary ---
:1990 Author Organization [facility] Address [address] [place] [address] Care Team Providers Name Role Phone Found, No Pcp MD Primary Care Provider Unavailable Reason for Visit Reason Comments Chest Pain CRISIS EVALUATION--ED Encounter Details Date Type Department Care Team Description 04/11/2021 Emergency [facility] Emergency Dept Yee Powell, Heart palpitations (Primary Dx); [address] [facility]. PA-C Anxiety (HRC); [place] [address] [address] [facility] Suicidal ideation [phone] [place], [place] [phone] (Wo rk) Social History Tobacco Use Types [...] be sent through Care Everywhere. Supraventricular Tachycardia (Pakistani)documented in this encounter Medications at Time of [...] Carrillo RN - 04/11/2021 8:26 PM CDT [facility] ED Nursing Discharge Note Patient discharged: to [...] [facility] mbsco=[phone]. He presented to the ED with a medication list but no other information from [facility]. I called & spoke to Garrison who [...] [facility] due to his concern about his physical health (he has a history of heart issues). BOBBY Johnson Yee Powell PA-C - 04/11/2021 4:54 PM CDT [facility] Emergency Medicine Visit Note Chief Complaint: Chest Pain and CRISIS EVALUATION--ED Luisito Rainey is a 30 y.o. old male presents from inpatient treatment facility [facility]. Hestates he is chronically suicidal, [...] was completed with the patient. A social services manager, patient's Nurse and me were all present [...] infectious or metabolic cause of current condition. turn out worker consultation ordered. Based on initial physical exam and chart review lab work was indicated at this time. CBC, BMP, TSH troponin and ECG. Likely anxiety but will do work up if negative he can follow up with his regional facilities specialist. His lump is likely a lymphnode, will [...] time. Pending labs and d/c back to [facility]. [GT] 1903 Reviewed labs which is all in normal range. [GT] 1906 Updated patient. He is lying in bed cooperative, alert and oriented. Will f/u with his regional facilities specialist on 04/20/21 and speak to his PCP [...] procedure are i n the results section. [id number] ELECTROCARDIOGRAM STAT 04/11/2021 4:58 R esults for [...] Organization Address City/State/ZIP Code Phon e Number [address] [address] TSH (04/11/2021 5:04 PM CDT) athologist Signature TSH, Sensitive 1.19 0.30 - 04/11/2021 [facility] 4.50 6:25 PM CDT HOSPITAL uIU/mL Specimen Anatomical Collection Method / Collection Time Recei shakeel Time (Source) Location / Volume Laterality Blood Venipuncture / 04/11/2021 5:04 04/11/2021 5:08 Unknown PM CDT PM CDT Arnaldo Parker [facility]_1 Performing Organization Address City/[facility] e Number [address] [address] Troponin I (04/11/2021 5:04 PM CDT) athologist Signature Troponin I <0.01 0.00 - 0.03 04/11/2021 [facility] ng/mL 5:42 PM CDT HOSPITAL Specimen Anatomical Collection Method / Collection Time Recei shakeel Time (Source) Location / Volume Laterality Blood Venipuncture / 04/11/2021 5:04 04/11/2021 5:08 Unknown PM CDT PM CDT Arnaldo Parker [facility] Performing Organization Address [facility] e [address] [address] Basic Metabolic Panel (04/11/2021 5:04 PM CDT) [...] Parker [facility] Performing Organization Address [facility]/ZIP Code Phon e Number [facility] [address] [place] [address] ECG 12-Lead STAT (04/11/2021 4:58 PM CDT) P athologist Signature Ventricular Rate 63 BPM [facility] Atrial Rate 63 BPM [facility] P-R Interval 128 ms [facility] QRS Duration 94 ms [facility] QT 368 ms [facility] QTc 376 ms [facility] P Leonardo 23 degrees [facility] T Leonardo 44 degrees [facility] Specimen (Source) Anatomical Collection Method Collection Time Re ceived Time Location / / Volume Laterality 04/11/2021 4:58 PM CDT Narrative [facility] - 04/12/2021 8:02 AM CDT Sinus rhythm Normal ECG No previous ECGs available Confirmed by MD BANG SUVEER ([id number]) o n 04/12/2021 8:02:33 AM Procedure Note Nimo Bang MD - 04/12/2021Formatti ng of this note might be different from the original. Sinus rhythm Normal ECG No previous ECGs available Confirmed by MD BANG SUVEER ([id number]) o n 04/12/2021 8:02:33 AM Arnaldo Parker [facility] EKG Performing Organization Address City/[facility]/ZIP [facility] Phon e Number [facility] [address] [place] [address] documented in this encounter Visit Diagnoses Diagnosis Heart palpitations - Primary Palpitations Anxiety (HRC) Anxiety state, unspecified Suicidal ideation Triage Assessment Note - Stephanie Carrillo RN - 04/11/2021 4:52 PM CDT Patient arrived by [facility] from [facility] with chief complaint: Chest pain with suicidal comments Symptoms/background (EMS narrative): [facility] like he[facility] had chest [...] required. documented in this encounter Care Teams Shellfish Manager Relationship Specialty Start Date End Date Found, No Pcp, PCP - General 04/11/21 [address] [place] [address] documented as of this encounter
== END 2021-12-27 00:37 | disposition home or self-care (01) ==
PROVIDERS: Emergency Provider Family Medicine; PCP Family Medicine
DX: F13.10 Sedative, hypnotic or anxiolytic abuse, uncomplicated (principal); Z11.3 Encounter for screening for infections with a predominantly sexual mode of transmission
CPT/HCPCS: 87491; 96372; 99283; A9270; J0696

== ENCOUNTER 2022-01-04 08:07 | Outpatient (CLI) | payer BC, SELFPAY ==
[2022-01-04 13:40] LABS: Amphetamine Screen Urine Negative (Negative); Barbiturate Screen Urine Negative (Negative); Cannabinoid Screen Urine Negative (Negative); Cocaine Screen Urine Negative (Negative); Methadone Screen Urine Negative (Negative); Methamphetamines Screen Urine Negative (Negative); Opiate Screen Urine Negative (Negative); Oxycodone Screen Urine Negative (Negative); Phencyclidine Screen Urine Negative (Negative); Tricyclic Antidepressant Urine Negative (Negative)
[2022-01-04 14:07] LABS: Benzodiazepines Screen Urine POSITIVE (Negative)
[2022-01-04 14:28] LABS: HIV 1/2/P24 Combo Screen* Negative (Negative)
[2022-01-04 14:36] LABS: Hepatitis C Virus Antibody* Negative (Negative)
[2022-01-05 23:13] LABS: Rapid Plasma Reagin (RPR) Non Reactive (Non Reactive)
== END 2022-01-04 08:08 | disposition home or self-care (01) ==
PROVIDERS: PCP Family Medicine; Visit Provider Nurse Practitioner Family
DX: F13.10 Sedative, hypnotic or anxiolytic abuse, uncomplicated (principal); Z11.3 Encounter for screening for infections with a predominantly sexual mode of transmission
CPT/HCPCS: 36415; 80306; 86592; 86703; 86803

== ENCOUNTER 2022-03-02 16:51 | Emergency (ER) | payer BC, SELFPAY ==
[2022-03-02 16:56] VITALS: BP 136/88; PULSE 68; RESP 16; TEMP 36.3; O2SAT 99; BMI 21.3
--- NOTE | 2022-03-02 17:12 | CRLHL7_ITS ---
For Patients: As a result of the Cures Act, medical imaging exams and procedure reports are released immediately into your electronic medical record. You may view this report before your referring provider. If you have questions, please contact your health care provider. INDICATION: Trauma to hand. TECHNIQUE: Three views of the left hand. COMPARISON: None. FINDINGS: There is marked soft tissue swelling along the dorsum of the hand a possible cortical step-off along the base of the 3rd metacarpal on the PA view only. Otherwise no evidence of acute fracture or malalignment. No radiopaque foreign body. IMPRESSION: Soft tissue swelling along the dorsum of the hand. Possible cortical step-off along the base of the 3rd metacarpal. Recommend correlation with point tenderness. Dictated by Deborah Jensen MD @ 03/02/2022 6:19:22 PM (Electronically Signed)
--- OUTSIDE RECORDS SUMMARY | 2022-03-02 17:26 | XMS_ITS | Encounter Summary ---
:1990 Author Organization [facility] Address [address] [place] [address] Care Team Providers Name Role Phone No Ref-Primary, Physician Primary Care Provider [phone] Encounter Details Date Type Department Care [...] on filedocumented in this encounter Care Teams Inspector Integrated Circuits Relationship Specialty Start Date End Date No Ref-Primary, Physician PCP - General 03/15/21 documented as of this encounter
--- OUTSIDE RECORDS SUMMARY | 2022-03-02 17:26 | XMS_ITS | Encounter Summary ---
:1990 Author Organization [facility] Address [address] [place] [address] Care Team Providers Name Role Phone No Ref-Primary, Physician Primary Care Provider [phone] Encounter Details Date Type Department Care [...] on filedocumented in this encounter Care Teams Durability Technician Relationship Specialty Start Date End Date No Ref-Primary, Physician PCP - General 03/15/21 documented as of this encounter
--- OUTSIDE RECORDS SUMMARY | 2022-03-02 17:26 | XMS_ITS | Clinical Summary ---
:1990 Author Organization [facility] [place] [address] Care Team Providers Name Role Phone Tomi Crystal MD Primary Care Provider Allergies Active Allergy Reactions Severity Noted Date Comments Ascorbate Other - Describe In Medium 01/21/2019 Cold sor es Calcium-Bioflavonoid Comment Field Cold s ores Ascorbic Acid Other - Describe In Medium 01/21/2019 Cold so res Comment Field, Cold sores *Unknown - Follow up needed Bioflavonoids Other - Describe In Medium 01/21/2019 Cold so res Comment Field, Cold sores *Unknown - Follow up needed Cephalexin Nausea And Vomiting, 01/12/2021 Other - Describe In Comment Field, *Unknown - Follow up needed Choline Other - Describe In Low 05/25/2021 Comment Field Choline Fenofibrate Other - Describe In Medium 01/21/2019 C old sores Comment Field, Cold sores *Unknown - Follow up needed Cyanocobalamin (Vitamin Other - Describe In Medium 01/21/2019 Cold sores B12) Comment Field, *Unknown - Follow up Cold so res needed Grape Seed Extract Other - Describe In Low 05/25/2021 Comment Field Inositol Other - Describe In Medium 01/21/2019 Cold sor es Comment Field, Cold sores *Unknown - Follow up needed Kiwi (Actinidia Anaphylaxis High 06/01/2020 Chinensis) Lemon Other - Describe In 03/20/2003 Comment Field Lemon Flavor Other - Describe In Low 01/12/2021 Comment Field, *Unknown - Follow up needed Lemon Oil Other - Describe In Medium 01/21/2019 Cold sor es Comment Field, *Unknown - Follow up Cold so res needed Tangirnaq Other - Describe In 03/20/2003 Comment Field [place] Anaphylaxis High 12/18/2013 [place] Flavor Other - Describe In High 01/12/2021 [place] Comment Field, [place] *Unknown - Follow up needed Multivitamin With Other - Describe In 09/05/2012 COL D SORE REACTION Iron,Other Minerals Comment Field TO VARIOUS/NUMEROU S Niacinamide Other - Describe In Medium 01/21/2019 Cold sor es Comment Field, Cold sores *Unknown - Follow up needed [place] Other - Describe In 03/21/2003 Comment Field Pantothenic Acid Other - Describe In Medium 01/21/2019 Cold sores Comment Field, Cold sores *Unknown - Follow up needed Pineapple Anaphylaxis High 02/17/2013 Pyridoxine Other - Describe In Medium 01/21/2019 Cold sor es Comment Field, Cold sores *Unknown - Follow up needed Riboflavin (Vitamin B2) Other - Describe In Medium 01/21/2019 Cold sores Comment Field, Cold sores *Unknown - Follow up needed [place] Other - Describe In 03/20/2003 Comment Field Thiamine (Vitamin B1) Other - Describe In Medium 01/21/2019 Cold sores Comment Field, Cold sores *Unknown - Follow up needed Medications Medication Sig Dispensed Refills Start Date End Date Status Magnesium Glycinate 100 Take by mouth. 0 04/16/2019 Active mg tab sertraline (Zoloft) 100 Take 1 Tablet 0 02/03/2021 Active mg tablet (100 mg) by mouth once daily. gabapentin (NEURONTIN) Take 1 Capsule 0 02/25/2021 Active 300 mg capsule (300 mg) by mouth 2 times daily. diazePAM (Valium) 5 mg Take 1 Tablet 0 03/01/2021 Active tablet (5 mg) by mouth at bedtime. melatonin 10 mg tab Take by mouth. 0 03/01/2021 Active sucralfate (CARAFATE) 1 Take 1 Tablet 120 Tablet 0 03/01/2021 Active gram tabletIndications: (1 g) by mouth Gastroesophageal reflux 4 times daily disease, unspecified before meals whether esophagitis and at bedtime. present esomeprazole (NEXIUM) 40 Take 1 Capsule 30 Capsule 0 1 Active mg capsuleIndications: (40 mg) by Gastroesophageal reflux mouth once disease, unspecified daily before a whether esophagitis meal. present ondansetron (ZOFRAN) 4 1 tab twice 60 Tablet 2 03/03/2021 Active mg tabletIndications: daily as needed Nausea ivabradine (CORLANOR) 5 Take 1 Tablet 180 Tablet 0 04/03/2021 Active mg tabletIndications: (5 mg) by mouth Inappropriate sinus 2 times daily tachycardia with meals. metoprolol tartrate Take 1.5 270 Tablet 3 05/18/2021 Active (LOPRESSOR) 50 mg Tablets (75 mg) tabletIndications: SVT by mouth 2 (supraventricular times daily. tachycardia) (HC) Active Problems Problem Noted Date SVT (supraventricular tachycardia) 05/27/2019 Controlled substance agreement signed 11/15/2016 Overview: Signed 11/13/2016 Dr Magui Infante Ps ychiatry Anxiety 10/10/2016 Psychophysiological insomnia 10/10/2016 Panic disorder without agoraphobia 09/03/2012 Attention deficit disorder with hyperactivity(314.01) 11/16/2008 Depressive disorder, not elsewhere classified 08/19/19 Conduct disorder, adolescent onset type 08/18/2008 Encounters Date Type Specialty Care Team Description 12/17/2021 Emergency Marco Blanc, Phani odiazepine withdrawal without complication (HC) (Primary Dx); Anxiety 12/17/2021 Travel from Last 3 Months Immunizations Name Administration Dates Next Due DTP 01/27/1997, 08/02/1994, 09/01/1993, 12/16/1992, 02/24/1992, 1991 Hepatitis A (Peds) 12/24/2006 Hepatitis B (Peds) 01/27/1997, 08/02/1994, 06/01/1994 Hib Conjugate, Unspecified 08/02/1994, 09/01/1993, 2, 1991 Human Papilloma Virus Vaccine 07/03/2010, 02/15/2010, 2009 Influenza A (H1N1), Inactivated (Age 1104/11/2009 >=3 Years) Influenza, IIV3 (Age >=3 years) 04/14/2009, 04/01/2008 Influenza, IIV4 02/13/2017 MMR 01/27/1997, 12/16/1992 Meningococcal Vaccine (Menactra) 12/24/2006 Polio Virus, Unspecified 01/27/1997, 08/02/1994, 09/01/1993, 02/24/1992, 1991 Td (Age >=7 Years) 02/13/2005 Tdap 07/18/2018, 06/11/2013 Varicella Vaccine 06/11/2002 Family History Medical History Relation Name Comments Other Father pituitary tumor Alcohol/Drug Mother Izzy's thyroiditis Mother Psychiatric illness Mother kyle Burciaga was adopted Relation Name Status Comments Brother Alive Father Alive Mother Alive Sister 1 Alive Sister 2 Alive Social History Tobacco Use Types Packs/Day Years Used Date Current Every Day Smoker Cigarettes 0.5 Evan t: 01/22/2013 Smokeless Tobacco: Former User Tobacco Cessation: Ready to Quit: Yes; C ounseling Given: Yes Alcohol Use Standard Drinks/Week Comments No 0 (1 standard drink = 0.6 oz pure alcoho l) Sex Assigned at Date Recorded Not on file Obstetrics History Last Filed Vital Signs Vital Sign Reading Time Taken Comments Blood Pressure 137/89 12/17/2021 9:48 PM CDT Pulse 58 12/17/2021 9:48 PM CDT Temperature 36.8 ??C (98.3 ??F) 12/17/2021 8:14 PM CDT Respiratory Rate 18 12/17/2021 9:48 PM CDT Oxygen Saturation 98% 12/17/2021 9:48 PM CDT Inhaled Oxygen Concentration - - Weight 79.4 kg (175 lb) 12/17/2021 8:14 PM CDT Height 172.7 cm (5' 8) 12/17/2021 8:14 PM CDT Body Mass Index 26.61 12/17/2021 8:14 PM CDT Plan of Treatment Health Maintenance Due Date Last Done Comments Pneumococcal series for age 19-64 09/11/1997 (1 - PCV) Hepatitis C screening for age 0409/11/2009 18-79 BMI (ht and wt on same day) for 08/19/2020 08/20/2019, 1112/2018, age 18+ 09/24/2016 Depression screening for age 12+ 01/24/2022 01/24/2021, , 01/20/2021, Additional history exists Influenza for age 9-49 02/08/2022 02/13/2017, 04/14/2009, 04/11/2009, Additional history exists Tetanus booster 07/18/2028 07/18/2018, 06/11/2013, 02/13/2005, Additional history exists Tdap Completed 07/18/2018, 06/11/2013 COVID-19 vaccine series Completed 05/23/2021, 11/15/2020, 10/25/2020 Results Not on filefrom Last 3 Months Insurance Payer Benefit Plan / Subscriber ID Effective Dates Phone Addre ss Type Group BLUE CROSS BLUE CROSS OF [id number] 2019-Present [address] [address] [place] [address] [place]ing Occ Health/Myrna Self 06/10/2000 OR ANILA T[place] (Home) DEPT [id number] [place] [phone] [id number] [facility] Tristan [place]OPEZ (Work) [place] [address] Advance Directives Documents on File Type Date Recorded 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
--- OUTSIDE RECORDS SUMMARY | 2022-03-02 17:26 | XMS_ITS | Encounter Summary ---
:1990 Author Organization [facility] Address [address] [place] [address] Care Team Providers Name Role Phone No Ref-Primary, Physician Primary Care Provider [phone] Encounter Details Date Type Department Care [...] on filedocumented in this encounter Care Teams Stopper Setter Relationship Specialty Start Date End Date No Ref-Primary, Physician PCP - General 03/15/21 documented as of this encounter
--- OUTSIDE RECORDS SUMMARY | 2022-03-02 17:26 | XMS_ITS | Encounter Summary ---
:1990 Author Organization [facility] Address [address] [place] [address] Care Team Providers Name Role Phone No Ref-Primary, Physician Primary Care Provider Encounter Details Date Type Department Care Team Description 03/02/2022 Travel Social History Tobacco Use Types Packs/Day Years Used Date Never Assessed Sex Assigned at Date Recorded Not on file COVID-19 Exposure Response Date Recorded In the last 10 days, have you been in contact with No / Unsu re 03/02/2022 7:10 AM CDT someone who was confirmed or suspected to have Coronavirus/COVID-19? documented as of this encounter Plan of Treatment Not on filedocumented as of this encounter Visit Diagnoses Not on filedocumented in this encounter Care Teams Global Supply Chain Vice President Relationship Specialty Start Date End Date No Ref-Primary, Physician PCP - General 03/15/21 documented as of this encounter
--- OUTSIDE RECORDS SUMMARY | 2022-03-02 17:26 | XMS_ITS | Clinical Summary ---
:1990 Author Organization [facility] Address [address] [place] [address]. [place] [address] Care Team Providers Name Role Phone No Ref-Primary, Physician Primary Care Provider [phone] Allergies Active Allergy Reactions Severity Noted [...] Active 32.4 MG tabletIndications: Alcohol Withdrawal Syndrome Encounters Date Type Specialty Care Team Description 03/02/2022 Travel from Last 3 Months Social History Tobacco Use Types Packs/Day Years Used Date Never Assessed Sex Assigned at Date Recorded Not on file COVID-19 Exposure Response Date Recorded In the last 10 days, have you been in contact with No / Unsu re 03/02/2022 7:10 AM CDT someone who was confirmed or suspected to have Coronavirus/COVID-19? Last Filed Vital Signs Vital Sign Reading [...] C SCREENING 09/11/2009 COVID-19 Vaccine (3 - 01/10/2021 11/15/2020, 10/25/2020 Booster for Pfizer series) PHQ-2 (once per calendar 06/10/2021 year) INFLUENZA VACCINE (#1) 2022 02/13/2017, 06/11/2013, 06/11/2013, Additional history exists DTAP/TDAP/TD IMMUNIZATION 07/18/2028 [...] ss Type Group BCBS BCBS OUT OF [id number] 2020-Present [phone] [address] [address] [place] [address] Care Teams Embedder Relationship Specialty Start Date End Date No Ref-Primary, Physician PCP - General 03/15/21
--- OUTSIDE RECORDS SUMMARY | 2022-03-02 17:26 | XMS_ITS | Encounter Summary ---
:1990 Author Organization [facility] Address [facility] [place] [address] Care Team Providers Name Role Phone No Ref-Primary, Physician Primary Care Provider [phone] Reason for Referral CV Cardio consult (Routine) - Pending Review Specialty Diagnoses / Procedures Referred By Referred To Contact Contact Cardiovascular Disease Diagnoses Palpitations Sinus tachycardia Paroxysmal supraventricular tachycardia (H) Pedrito Noguera, Emil meza MD [address] [facility] [address] [facility] [address] [place], [place] Phone: [phone] Phone: Fax: Referral ID Status Reason Start Date Expiration Date Visits V isits Requested Authorized [id number] Pending 03/19/2021 03/19/2022 1 1 Review Reason for Visit Reason Comments Numbness lower left leg tingling onse t at 1900 lastnight pt ambulated into triage, pt from [facility] Palpitations hx of SVT feels palpitations , HR in triage 85 no chest pain Anxiety Encounter Details Date Type Department Care Team Description 03/19/2021 Emergency [facility] Pedrito Noguera, Palpi tations; [facility] Sinus tachycardia; Dept [address] [facility] Paroxysmal supraventricular tachycardia (H); [address] [place] [address] Paresthesia of left leg; [place], [place] [phone] Anxiety [address] (Work) [phone] Social History Tobacco Use Types Packs/Day Years [...] Cardiac Services to schedule your ZIO Patch respite worker study as soon as possible: [phone]. An EP Cardiology clinic referral was made for you, they will contact you to establish follow-up. AttachmentsThe following attachments cannot be sent through Care Everywhere. Supraventricular Tachycardia (SVT), Understanding (Slovak)Paraesthesias (Slovak)Anxiety, Your Body's Response to (Slovak)documented in this encounter Medications at Time of [...] lastnight pt ambulated into triage, pt from [facility] ??? Palpitations hx of SVT feels palpitations, HR in triage 85 no chest pain ??? Anxiety HPI Luisito Rainey is a 30 year old male from the [facility] treatment center, with history of anxiety,depression, chemical dependency (alcohol [...] that he needs to see an EP Building Attendant for medication adjustment and another ablation procedure. This morning he called the [facility] answering service or nurse triage service with concern of elevated heart rate and asking if he can switch back from Metoprolol to Nadolol and questioned whether he was to have another EP study/Zio patch monitor study. He was previously on Nadolol and Corlanor/Ivabradine (5 mg twice daily), but since admission to [facility] recently the beta-terrence therapy will [...] Ascorbate Calcium-Bioflavonoid Other - Describe In Comment [facility] 01/21/2019 Cold sores?? Bioflavonoids Other - Describe In Comment [facility] 01/21/2019 Cold sores?? Choline Fenofibrate Other - Describe In Comment [facility] 01/21/2019 Cold sores ?? Inositol Other - Describe In Comment [facility] 01/21/2019 Cold sores ?? Ascorbic Acid Other - Describe In Comment [facility] 01/21/2019 Cold sores ?? Lemon Oil Other - Describe In Comment [facility] 01/21/2019 Cold sores ?? Niacinamide Other - Describe In Comment [facility] 01/21/2019 Cold sores ?? Pantothenic Acid Other - Describe In Comment [facility] 01/21/2019 Cold sores ?? Pineapple Anaphylaxis High 02/17/2013 ?? Pyridoxine Other - Describe In Comment [facility] 01/21/2019 Cold sores ?? Riboflavin (Vitamin B2) Other - Describe In Comment [facility] 01/21/2019 Cold sores ?? Thiamine (Vitamin B1) Other - Describe In Comment [facility] 01/21/2019 Cold sores ?? Cyanocobalamin (Vitamin B12) Other - Describe In Comment [facility] 01/21/2019 Cold sores ?? Medications Reconcile [...] 11/15/2016 Overview: ?? Signed 11/13/2016 Dr Magui Infante Psychiatry?? Anxiety 10/10/2016 Psychophysiological insomnia 10/10/2016 Panic [...] thyroiditis Mother ? Psychiatric illness Mother ?? Cymbalta, mom was adopted Relation Name Status Comments [...] EKG: Rapid palpitations Rhythm: normal sinus Rate: Cowan: Horizontal axis Ectopy: none Conduction: RSR in [...] Status --------- ------ CBC with platelets and d...[[id number]] Abnormal Final result Please view results for [...] Making) 30 year old male from the [facility], with history of anxiety, depression, chemical dependency [...] repeatedly expressed that he had a particular Building Attendant in the past who was only one that would listen to me and performed the ablation. He wants referral to a new EP canoe inspector final. He was previously on Nadolol and Corlanor/Ivabradine(5 mg twice daily) therapy per his [facility] Building Attendant at [facility], but since admission to [facility] recently his beta-terrence therapy has been switched to Metoprolol tartrate 25 mg twice daily, and his palpitations have worsened, although his benzodiazepine dependence and abuse is also being treated and now his anxiety is worsening. He is unhappy with his Building Attendant at the [facility] and would like referral for new EP Building Attendant and get another respite worker study. He believes that he needs another ablation procedure. I will make a referral to EP cardiology and order an outpatient 7-day Zio patch monitor study. He declined resumption of Nadolol therapy instead of Metoprolol because he wants to ensure that his symptomatic rapid palpitations/PSVT is captured on the monitor study. He appears stable for discharge back to [facility] with continued monitoring there. He was provided [...] (H) Paresthesia of left leg Anxiety 03/19/2021 [facility] Pedrito Noguera MD 03/19/211814 documented in this encounter Miscellaneous Notes Result Encounter Note - Fer Freeman RN - 03/19/2021 5:50 PM CDT Within normal reference range. documented in this encounter Plan of Treatment Scheduled Referrals Name Type Priority Associated Diagnoses Order S [facility] Adult Cardiology Referral Routine: Next Palpitations Expected: [...] encounter Results Magnesium (03/19/2021 5:15 PM CDT) athologist Signature Magnesium 2.1 1.6 - 2.3 03/19/2021 [facility] mg/dL 5:52 PM CDT Specimen Anatomical Collection Method / Collection Time Recei shakeel Time (Source) Location / Volume Laterality Blood VENOUS LINE / Venipuncture / 03/19/2021 5:15 5:34 Unknown Unknown PM CDT PM CDT Pedrito Noguera MD LAB - BLOOD ORDERABLES Performing Organization Address City/State/[place] [address] Acute Care Lab [address] [place] [address]. Room # 2186 [place] [address], [facility] [phone] Acute Care Lab [address] [place] [address]. Room # 2186 D dimer quantitative (03/19/2021 5:15 PM CDT) Analysis Performed At Patho logist Time Signature D-Dimer <0.27 0.00 - 03/19/2021 [facility] Quantitative 0.50 ug/mL 5:49 PM CDT FEU Specimen Anatomical Collection Method / Collection Time Recei shakeel Time (Source) Location / Volume Laterality Blood VENOUS LINE / Venipuncture / 03/19/2021 5:15 5:34 Unknown Unknown PM CDT PM CDT Narrative [facility] - 03/19/2021 5:49 PM CDT This D-dimer assay is intended for use i n conjunction with a clinical pretest probability assessment model to exclude pulmonary embolism (PE) and deep venous thrombosis (DVT) in outpatients suspecte d of PE or DVT. The cut-off value is 0.50 ug/mL FEU. Pedrito Noguera MD LAB - BLOOD ORDERABLES Performing Organization Address City/State/[place] [address] Acute Care Lab [address] [place] [address]. Room # 2186 [place] [address], [facility] [phone] Acute Care Lab [address] [place] [address]. Room # 2186 (ABNORMAL) CBC with platelets and differential (03/19/2021 3:57 PM CDT) Patholo gist Method Time Signature WBC Count 13.3 (H) 4.0 - 03/19/2021 [facility] 11.0 4:11 PM CDT 10e3/uL RBC Count 5.52 4.40 - 03/19/2021 [facility] 5.90 4:11 PM CDT 10e6/uL Hemoglobin 17.2 13.3 - 03/19/2021 [facility] 17.7 g/dL 4:11 PM CDT Hematocrit 48.6 40.0 - 03/19/2021 [facility] 53.0 % 4:11 PM CDT MCV 88 78 - 100 03/19/2021 [facility] fL 4:11 PM CDT MCH 31.2 26.5 - 03/19/2021 [facility] 33.0 pg 4:11 PM CDT MCHC 35.4 31.5 - 03/19/2021 [facility] 36.5 g/dL 4:11 PM CDT RDW 12.2 10.0 - 03/19/2021 [facility] 15.0 % 4:11 PM CDT Platelet Count 242 150 - 450 03/19/2021 [facility] 10e3/uL 4:11 PM CDT % Neutrophils 73 % 03/19/2021 [facility] 4:11 PM CDT % Lymphocytes 18 % 03/19/2021 [facility] 4:11 PM CDT % Monocytes 6 % 03/19/2021 [facility] 4:11 PM CDT % Eosinophils 2 % 03/19/2021 [facility] 4:11 PM CDT % Basophils 1 % 03/19/2021 [facility] 4:11 PM CDT % Immature 0 % 03/19/2021 [facility] Granulocytes 4:11 PM CDT NRBCs per 100 0 <1 /100 03/19/2021 [facility] WBC 4:11 PM CDT Absolute 9.7 (H) 1.6 - 8.3 03/19/2021 [facility] Neutrophils 10e3/uL 4:11 PM CDT Absolute 2.4 0.8 - 5.3 03/19/2021 [facility] Lymphocytes 10e3/uL 4:11 PM CDT Absolute 0.9 0.0 - 1.3 03/19/2021 [facility] Monocytes 10e3/uL 4:11 PM CDT Absolute 0.3 0.0 - 0.7 03/19/2021 [facility] Eosinophils 10e3/uL 4:11 PM CDT Absolute 0.1 0.0 - 0.2 03/19/2021 [facility] Basophils 10e3/uL 4:11 PM CDT Absolute 0.0 <=0.0 03/19/2021 [facility] Immature 10e3/uL 4:11 PM CDT Granulocytes Absolute NRBCs 0.0 10e3/uL 03/19/2021 [facility] 4:11 PM CDT Specimen Anatomical Collection Method / Collection Time Recei shakeel Time (Source) Location / Volume Laterality Blood STRUCTURE OF LEFT Venipuncture / 03/19/2021 3:57 03/19 4:08 UPPER LIMB / Unknown PM CDT PM CDT Unknown Pedrito Noguera MD LAB - BLOOD ORDERABLES Performing Organization Address City/[facility]/[place]IP [place] [address] Acute Care Lab [address] [place] [address]. Room # 2186 [place] [address], [facility] [phone] Acute Care Lab [address] [place] [address]. Room # 2186 Troponin I (03/19/2021 3:57 PM CDT) athologist Signature Troponin I <0.015 0.000 - 03/19/2021 [facility] 0.045 ug/L 4:31 PM CDT Comment: [...] LAB - BLOOD ORDERABLES Performing Organization Address City/[facility]/ZIP [facility] [place] [address] Acute Care Lab [address] [place] [address]. Room # 2186 [place] [address], [facility] [phone] Acute Care Lab [address] [place] [address]. Room # 2186 Basic metabolic panel (03/19/2021 3:57 PM CDT) athologist Signature Sodium 139 133 - 144 03/19/2021 [facility] mmol/L 4:27 PM CDT Potassium 4.0 3.4 - 5.3 03/19/2021 [facility] mmol/L 4:27 PM CDT Chloride 106 94 - 109 03/19/2021 [facility] mmol/L 4:27 PM CDT Carbon Dioxide 26 20 - 32 03/19/2021 [facility] (CO2) mmol/L 4:27 PM CDT Anion Gap 7 3 - 14 03/19/2021 [facility] mmol/L 4:27 PM CDT Urea Nitrogen 10 7 - 30 03/19/2021 [facility] mg/dL 4:27 PM CDT Creatinine 0.79 0.66 - 03/19/2021 [facility] 1.25 mg/dL 4:27 PM CDT Calcium 9.3 8.5 - 10.1 03/19/2021 [facility] mg/dL 4:27 PM CDT Glucose 86 70 - 99 03/19/2021 [facility] mg/dL 4:27 PM CDT GFR Estimate >90 >60 03/19/2021 [facility] mL/min/1.7 4:27 PM CDT 3m2 Comment: [...] Organization Address City/State/[place] [address] [phone] Acute Care Lab [address] [place] [address]. Room # 2186 [place] [address] [phone] Acute Care Lab [address] [place] [address]. Room # 2186 EKG 12 lead (03/19/2021 [...] 03/19/2021 ibuprofen (ADVIL/MOTRIN) tablet 400 mg (COMPLETED) 1715 (Given - Provider: Jaime Molina RN) 400 mg, Oral, ONCE, On 03/19/21 at 1700, For 1 dose, Give wi th food. metoprolol tartrate (LOPRESSOR) tablet 25 mg (COMPLETED) 1715 (Given - Provider: Jaime Molina RN) 25 mg, Oral, ONCE, On 03/19/21 at 1700, For 1 dose documented in this encounter Care Teams Nurse Recruiter Relationship Specialty Start Date End Date No Ref-Primary, Physician PCP - General 03/15/21 documented as of this encounter
--- OUTSIDE RECORDS SUMMARY | 2022-03-02 17:27 | XMS_ITS | Encounter Summary ---
:1990 Author Organization [facility] Address [address] [place] [address] Care Team Providers Name Role Phone Elsewhere, Pcp Primary Care Provider Unavailable Encounter Details Date Type Department Care Team Description 07/06/2021 Hospital Department of [place], Tachycardia Encounter Laboratory Rodrigo Arias Supraventric ulflorencia ([facility]) Medicine and MPeace, Ph.D. Pathology, Duck [address] [place] [address] in [place] [address] [place] [phone] [place] [address] (Work) [place] [address] Social History Tobacco Use Types [...] er 07/18/2021 How often do you attend mandaeism or moravian services? 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 [id number]-[id number] Take 1 tablet by mouth 0 -minerals [...] Tachycardia Results for this DIFFERENTIAL, B AM ELEMENTARY SCHOOL DIRECTOR Supraventricular (HCC) pr ocedure are in the results section. TYPE AND SCREEN Routine 07/06/2021 11:10 Tachycardia Results for this AM ELEMENTARY SCHOOL DIRECTOR Supraventricular (HCC) proce dure are in the results section. BASIC METABOLIC Routine 07/06/2021 11:09 Tachycardia Results for this PANEL, S/P AM ELEMENTARY SCHOOL DIRECTOR Supraventricular (HCC) proce dure are in the results section. documented in this encounter Results Type and Screen (with reflex Antibody ID) (07/06/2021 11:10 AM ELEMENTARY SCHOOL DIRECTOR) [facility] ADstruc Method Time Signature ABORh A Pos Not 07/06/2021 ETRM applicable 12:04 PM ELEMENTARY SCHOOL DIRECTOR Antibody Negative Negative 07/06/2021 ETRM Screen 12:15 PM ELEMENTARY SCHOOL DIRECTOR Type & Screen 07/09/2021 07/06/2021 ETRM Expiration 23:59 12:04 PM ELEMENTARY SCHOOL DIRECTOR Testing Seymour DEFAULT 07/06/2021 ETRM Location 11:28 AM ELEMENTARY SCHOOL DIRECTOR Specimen Anatomical Collection Method Collection Time Receive d Time (Source) Location / / Volume Laterality Blood (Blood, 07/06/2021 11:10 07/06/2021 Venous) AM ELEMENTARY SCHOOL DIRECTOR 11:28 AM ELEMENTARY SCHOOL DIRECTOR Rodrigo Gray M.D., Ph.D. LAB BLOOD BANK ANGELLA T ORDERABLES Performing Organization Address City/State/ZIP Code Phon e Number [facility] - [address] [place], [place] [address] [facility] [place] [address] [facility] [address] [facility] (ABNORMAL) CBC without Differential (07/06/2021 11:10 AM ELEMENTARY SCHOOL DIRECTOR) [facility] ADstruc Method Time Signature Hemoglobin 16.2 13.2 - 07/06/2021 DTL 16.6 g/dL 11:53 AM ELEMENTARY SCHOOL DIRECTOR Hematocrit 48.5 38.3 - 07/06/2021 DTL 48.6 % 11:53 AM ELEMENTARY SCHOOL DIRECTOR Erythrocytes 5.49 4.35 - 07/06/2021 DTL 5.65 11:53 AM ELEMENTARY SCHOOL DIRECTOR x10(12)/L MCV 88.3 78.2 - 07/06/2021 DTL 97.9 fL 11:53 AM ELEMENTARY SCHOOL DIRECTOR RBC Distrib Width 12.1 11.8 - 07/06/2021 DTL 14.5 % 11:53 AM ELEMENTARY SCHOOL DIRECTOR Platelet Count 236 135 - 317 07/06/2021 DTL x10(9)/L 11:53 AM ELEMENTARY SCHOOL DIRECTOR Leukocytes 9.9 (H) 3.4 - 9.6 07/06/2021 DTL x10(9)/L 11:53 AM ELEMENTARY SCHOOL DIRECTOR Specimen Anatomical Collection Method Collection Time Receive d Time (Source) Location / / Volume Laterality Blood (Blood, 07/06/2021 11:10 07/06/2021 Venous) AM ELEMENTARY SCHOOL DIRECTOR 11:45 AM ELEMENTARY SCHOOL DIRECTOR Rodrigo Gray M.D., Ph.D. LAB BLOOD ADD-ON Performing Organization Address City/State/ZIP Code Phon e Number [facility] - 200 [place], [place] [address] [facility] [place] [address] [facility] [address] [facility] Basic Metabolic Panel (07/06/2021 11:09 AM ELEMENTARY SCHOOL DIRECTOR) P athologist Signature Potassium, S 4.7 3.6 - 5.2 07/06/2021 DTL mmol/L 12:20 PM ELEMENTARY SCHOOL DIRECTOR Sodium, S 143 135 - 145 07/06/2021 DTL mmol/L 12:20 PM ELEMENTARY SCHOOL DIRECTOR Chloride, S 103 98 - 107 07/06/2021 DTL mmol/L 12:20 PM ELEMENTARY SCHOOL DIRECTOR Bicarbonate, S 28 22 - 29 07/06/2021 DTL mmol/L 12:20 PM ELEMENTARY SCHOOL DIRECTOR Anion Gap 12 7 - 15 07/06/2021 DTL 12:20 PM ELEMENTARY SCHOOL DIRECTOR BUN (Blood Urea 8 8 - 24 07/06/2021 DTL Nitrogen), S mg/dL 12:20 PM ELEMENTARY SCHOOL DIRECTOR Creatinine 0.98 0.74 - 07/06/2021 DTL 1.35 mg/dL 12:20 PM ELEMENTARY SCHOOL DIRECTOR eGFR-Non >90 >=60 07/06/2021 DTL Black/ mL/min/BSA 12:20 PM ELEMENTARY SCHOOL DIRECTOR Serbian Comment: ----ADDITIONAL INFORMATION---- Estimated GFR calculated using the 2009 CKD_EPI creatinine equation. eGFR-Black/ >90 >=60 mL/min/BSA 2021 12:20 PM ELEMENTARY SCHOOL DIRECTOR DTL Comment: ----ADDITIONAL INFORMATION---- Estimated GFR calculated using the 2009 CKD_EPI creatinine equation. Calcium, Total, S 9.7 8.6 - 10.0 mg/dL 07/06/2021 12:2 0 PM ELEMENTARY SCHOOL DIRECTOR DTL Glucose, S 99 70 - 140 mg/dL 07/06/2021 12:20 PM ELEMENTARY SCHOOL DIRECTOR DTL Specimen Anatomical Collection Method Collection Time Receive d Time (Source) Location / / Volume Laterality Blood (Blood, 07/06/2021 11:09 07/06/2021 Venous) AM ELEMENTARY SCHOOL DIRECTOR 11:56 AM ELEMENTARY SCHOOL DIRECTOR Rodrigo Gray M.D., Ph.D. LAB BLOOD ADD-ON Performing Organization Address City/State/ZIP Code Phon e Number [facility] - [address] [place], [place] [address] [facility] [place] [address] [facility] [address] documented in this encounter Visit Diagnoses Diagnosis Tachycardia Supraventricular (HCC) documented in this encounter Additional Health Concerns Infection Onset Date Last Indicated Resolved Time COVID19 Pending 07/06/2021 07/06/2021 07/06/2021 5:05 PM ELEMENTARY SCHOOL DIRECTOR Assessment Noted Time PHQ-9 Depression Total Score: 11 09/09/2015 4:10 PM CD T documented as of this encounter Care Teams Director Of Dementia Operations Relationship Specialty Start Date End Date Elsewhere, Pcp PCP - General Internal Medicine 07/04/21 documented as of this encounter
--- OUTSIDE RECORDS SUMMARY | 2022-03-02 17:27 | XMS_ITS | Encounter Summary ---
:1990 Author Organization [facility] Address [address] [place] [address] Care Team Providers Name Role Phone Elsewhere, Pcp Primary Care Provider Unavailable Reason for Referral Outpatient (Routine) - Closed Specialty Diagnoses / Procedures Referred By Contact Refer red To Contact Diagnoses Tachycardia Supraventricular (HCC) Rodrigo Gray V. [facility] Procedures Echo Transthoracic (TTE) Karley, Ph.D. [address] [place] [phone] Referral ID Status Reason Start Date Expiration Date Visits Requ ested Visits Authorized [id number] Closed 05/26/2021 05/26/2022 1 1 N AND YEAST PLANTS SUPERVISOR Reason for Visit Outpatient (Routine) - Closed Specialty Diagnoses / Procedures Referred By Contact Refer red To Contact Diagnoses Tachycardia Supraventricular (HCC) Rodrigo Gray V. [facility] Procedures Echo Transthoracic (TTE) Karley, Ph.D. [address] [place] [phone] Referral ID Status Reason Start Date Expiration Date Visits Requ ested Visits Authorized [id number] Closed 05/26/2021 05/26/2022 1 1 Encounter Details Date Type Department Care Team Description 07/06/2021 Hospital Department of [place], Tachycardia Encounter Cardiovascular Rodrigo Arias Supraventr icular (HCC) Diseases in Karley, Ph.D. [place], [place] 200 [facility] 200 [place] [phone] Social History Tobacco Use Types Packs/Day Years [...] er 07/18/2021 How often do you attend taoist or catholic services? 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 [id number]-Dt-dwel Take 1 tablet by mouth 0 -minerals [...] Tachycardia Results for this DOPPLER COLOR AM GRAIN AND YEAST PLANT[employer] SUPERVISOR Supraventricular (HCC) proc edure are in the results section. documented in this encounter Results (TTE) 2D ECHO DOPPLER COLOR (07/06/2021 8:49 AM GRAIN AND YE[employer] SUPERVISOR) Patholo gist Method Time Signature Ejection Fraction [...] / / Volume Laterality 07/06/2021 7:40 AM GRAIN AND YEAST PLANT[employer] SUPERVISOR Impressions 07/06/2021 2:57 PM GRAIN AND YEAST [employer]ANT[employer] SUPERVISOR LEFT VENTRICLE:Normal left ventricular chamber size. Normal [...] Order-L evel Documents. Narrative 07/06/2021 2:57 PM GRAIN AND YEAST PLANT[employer] SUPERVISOR For the complete report, see the Order-Level [...] original. For the complete report, see the [employer] Documents. Final Impressions 1. Normal left ventricular [...] effusion. For the complete report, see the [employer] Documents. Rodrigo Gray M.D., Ph.D. CV ECHO PROCEDURES documented in this encounter Visit Diagnoses Diagnosis Tachycardia Supraventricular (HCC) documented in this encounter Additional Health Concerns Infection Onset Date Last Indicated Resolved Time COVID19 Pending 07/06/2021 07/06/2021 07/06/2021 5:05 PM GRAIN [employer] YE[employer] SUPERVISOR Assessment Noted Time PHQ-9 Depression Total Score: 11 09/09/2015 4:10 PM CD T documented as of this encounter Care Teams Gaming Table Operator Relationship Specialty Start Date End Date Elsewhere, Pcp PCP - General Internal Medicine 07/04/21 documented as of this encounter
--- OUTSIDE RECORDS SUMMARY | 2022-03-02 17:27 | XMS_ITS | Encounter Summary ---
:1990 Author Organization [facility] Address [address] [place] [address] Care Team Providers Name Role Phone Elsewhere, Pcp Primary Care Provider Unavailable Reason for Visit Auth/Cert Specialty Diagnoses / Procedures Referred By Contact Refer red To Contact Diagnoses Tachycardia Supraventricular (HCC) Procedures VT EP EVAL W SUPRAVENT ABLATE DIAGNOSTIC EPS ABLATION - SVT Referral ID Status Reason Start Date Expiration Date Visits Requ ested Visits Authorized [id number] 1 1 Encounter Details Date Type Department Care Team Description 07/07/2021 Surgery Division of Cardiovascular [facility] DIAGNOSTIC EPS Diseases in Juana Diaz M.D., Ph.D. [place] [id number] [place] [phone] [place] [address] [phone] Social History Tobacco Use Types Packs/Day Years [...] er 07/18/2021 How often do you attend methodist or cheondoism services? Never 07/18/2021 Do you belong to any clubs or organizations such as methodist N o 07/18/2021 groups, unions, fraternal or [...] at Date Recorded Male 06/01/2020 11:57 AM WHITE METAL CORROSION PROOFER documented as of this encounter Last Filed Vital Signs Vital Sign Reading Time Taken Comments Blood Pressure 98/43 07/07/2021 12:45 PM WHITE METAL CORROSION PROOFER Pulse 101 07/07/2021 12:45 PM WHITE METAL CORROSION PROOFER Temperature 36.9 ??C (98.5 ??F) 07/07/2021 7:18 AM WHITE METAL CORROSION PROOFER Respiratory Rate - - Oxygen Saturation 100% 07/07/2021 12:45 PM WHITE METAL CORROSION PROOFER Inhaled Oxygen Concentration - - Weight - - Height - - Body Mass Index - - documented in this encounter Discharge Instructions Discharge InstructionsFYanna prescott - 07/07/2021 12:26 PM CST You were discharged from the [facility] CVD Interventional/Heart Rhythm Service. Please [...] 4:00 p.m., contact the Electrophysiology Service at [phone]. For questions occurring after business hours, on weekends, nights, or holidays call [phone] and ask for Electrophysiology Watch Repairer Apprentice. Heart Failure Assessment: Weigh yourself at the [...] avoid/skip your follow-up appointments, they are important! E METAL CORROSION PROOFER documented in this encounter Medications at Time [...] mouth at 0 03/01/20 21 tablet bedtime. [id number]-Rn-hcyu Take 1 tablet by mouth 0 -minerals [...] instructions were reviewed in detail as per [id number] with patient and family and they verbalized understanding. Follow up appointment is arranged. Patient was dismissed when discharge criteria was met, accompanied byfriendAll questions answered. E METAL CORROSION PROOFER documented in this encounter Plan of Treatment Not on filedocumented as of this encounter Procedures Procedure Name Priority Date/Time Associated Diagnosis Comme nts ECG Routine 07/07/2021 11:37 Results for this AM WHITE METAL CORROSION PROOFER procedure are i n the results section. HEART RHYTHM Routine 07/07/2021 10:57 Tachycardia Results for this PROCEDURE AM WHITE METAL CORROSION PROOFER Supraventricular (HCC) proce dure are in the results section. ACT, POCT, B Routine 07/07/2021 10:45 Results for this AM WHITE METAL CORROSION PROOFER procedure are i n the results section. ACT, POCT, B Routine 07/07/2021 10:07 Results for this AM WHITE METAL CORROSION PROOFER procedure are i n the results section. ACT, POCT, B Routine 07/07/2021 9:40 Results for this AM WHITE METAL CORROSION PROOFER procedure are i n the results section. ACT, POCT, B Routine 07/07/2021 9:22 Results for this AM WHITE METAL CORROSION PROOFER procedure are i n the results section. ABG AND LYTES Routine 07/07/2021 9:19 Results for this EG6+, POCT, B AM WHITE METAL CORROSION PROOFER procedure are in the results section. documented in this encounter Results ECG 12 Lead (07/07/2021 11:37 AM WHITE METAL CORROSION PROOFER) P athologist Signature Ventricular Rate 92 BPM MUSE ECG/Min VT Interval 144 ms MUSE QRSD Interval 90 ms MUSE QT Interval 346 ms MUSE QTC Interval 427 ms MUSE P [place] 51 degrees MUSE R [place] -3 degrees MUSE T Wave [place] 43 degrees MUSE Specimen Anatomical Collection Method Collection Time Receive d Time (Source) Location / / Volume Laterality 07/07/2021 11:37 07/07/2021 AM WHITE METAL CORROSION PROOFER 11:38 AM WHITE METAL CORROSION PROOFER Impressions MUSE - 07/07/2021 11:38 AM WHITE METAL CORROSION PROOFER Normal sinus rhythm Normal ECG When compared [...] MUSE NA DIAGNOSTIC EPS (07/07/2021 10:57 AM WHITE METAL CORROSION PROOFER) Anatomical Region Laterality Modality X-Ray Angiography Specimen (Source) Anatomical Collection Method Collection Time Re ceived Time Location / / Volume Laterality 07/07/2021 8:38 AM WHITE METAL CORROSION PROOFER Narrative 07/07/2021 11:38 AM WHITE METAL CORROSION PROOFER For the complete report, see the Order-L [...] (Activated Clotting Time), POCT (07/07/2021 10:45 AM WHITE METAL CORROSION PROOFER) P athologist Signature Activated 114 84 - 139 07/07/2021 PCSM Clotting Time, sec 10:52 AM WHITE METAL CORROSION PROOFER POCT Specimen Anatomical Collection Method Collection Time Receive d Time (Source) Location / / Volume Laterality Blood 07/07/2021 10:45 07/07/2021 AM WHITE METAL CORROSION PROOFER 10:53 AM WHITE METAL CORROSION PROOFER Unknown Provider LAB POCT ORDERABLES - DEVICE Performing Organization Address City/State/ZIP Code Phon e Number POC [facility] [address] [place], [place] [address] LABS PCSM [facility] [place] [address] [place] [facility] [address] (ABNORMAL) ACT (Activated Clotting Time), POCT (07/07/2021 10:07 AM WHITE METAL CORROSION PROOFER) P athologist Signature Activated 211 (H) 84 - 139 07/07/2021 PCSM Clotting Time, sec 10:16 AM WHITE METAL CORROSION PROOFER POCT Specimen Anatomical Collection Method Collection Time Receive d Time (Source) Location / / Volume Laterality Blood 07/07/2021 10:07 07/07/2021 AM WHITE METAL CORROSION PROOFER 10:17 AM WHITE METAL CORROSION PROOFER Unknown Provider LAB POCT ORDERABLES - DEVICE Performing Organization Address City/State/ZIP Code Phon e Number POC [facility] [address] [place], [place] [address] [place] [address] [place] [facility] [address] (ABNORMAL) ACT (Activated Clotting Time), POCT (07/07/2021 9:40 AM WHITE METAL CORROSION PROOFER) P athologist Signature Activated 211 (H) 84 - 139 07/07/2021 PCSM Clotting Time, sec 9:49 AM WHITE METAL CORROSION PROOFER POCT Specimen Anatomical Collection Method Collection Time Receive d Time (Source) Location / / Volume Laterality Blood 07/07/2021 9:40 AM 2 9:49 WHITE METAL CORROSION PROOFER AM WHITE METAL CORROSION PROOFER Unknown Provider LAB POCT ORDERABLES - DEVICE Performing Organization Address City/[facility] Phon e Number POC [facility] [address] [place], [place] [address] [place] [address] [place] [facility] [address] (ABNORMAL) ACT (Activated Clotting Time), POCT (07/07/2021 9:22 AM WHITE METAL CORROSION PROOFER) P athologist Signature Activated 216 (H) 84 - 139 07/07/2021 PCSM Clotting Time, sec 9:33 AM WHITE METAL CORROSION PROOFER POCT Specimen Anatomical Collection Method Collection Time Receive d Time (Source) Location / / Volume Laterality Blood 07/07/2021 9:22 AM 2 9:33 WHITE METAL CORROSION PROOFER AM WHITE METAL CORROSION PROOFER Unknown Provider LAB POCT ORDERABLES - DEVICE Performing Organization Address City/[facility]/ZIP [facility] Phon e Number POC [facility] [address] [place], [place] [address] [place] [address] [place] [facility] [address] (ABNORMAL) ABG and Lytes, POCT (07/07/2021 9:19 AM WHITE METAL CORROSION PROOFER) P athologist Signature Sample Site, Artline 07/07/2021 PCLX POCT 9:33 AM WHITE METAL CORROSION PROOFER Comment: ----ADDITIONAL INFORMATION---- Performed at the Point of Care pH, POCT 7.34 (L) 7.35 - 7.45 07/07/2021 9:33 AM WHITE METAL CORROSION PROOFER PCLX Comment: ----ADDITIONAL INFORMATION---- Performed at the Point of Care pCO2, POCT 51 (H) 35 - 48 mm Hg 07/07/2021 9:33 AM WHITE METAL CORROSION PROOFER PC LX Comment: ----ADDITIONAL INFORMATION---- Performed at the Point of Care pO2, POCT 151 (H) 83 - 108 mm Hg 07/07/2021 9:33 AM WHITE METAL CORROSION PROOFER PC LX Comment: ----ADDITIONAL INFORMATION---- Performed at the Point of Care Base, POCT 2 -2 - 3 mmol/L 07/07/2021 9:33 AM WHITE METAL CORROSION PROOFER PC LX Comment: ----ADDITIONAL INFORMATION---- Performed at the Point of Care HCO3, POCT 28 (H) 22 - 26 mmol/L 07/07/2021 9:33 AM WHITE METAL CORROSION PROOFER P CLX Comment: ----ADDITIONAL INFORMATION---- Performed at the Point of Care Sodium, POCT, B 140 135 - 145 mmol/L 07/07/2021 9:33 A M WHITE METAL CORROSION PROOFER PCLX Comment: ----ADDITIONAL INFORMATION---- Performed at the Point of Care Potassium, POCT, B 3.5 (L) 3.6 - 5.2 mmol/L 07/07/2021 9:3 3 AM WHITE METAL CORROSION PROOFER PCLX Comment: ----ADDITIONAL INFORMATION---- Performed at the Point of Care Hematocrit, POCT, B 41.0 38.3 - 48.6 % 07/07/2021 9:33 AM WHITE METAL CORROSION PROOFER PCLX Comment: ----ADDITIONAL INFORMATION---- Performed at the Point of Care Specimen Anatomical Collection Method Collection Time Receive d Time (Source) Location / / Volume Laterality Blood 07/07/2021 9:19 AM 9:33 WHITE METAL CORROSION PROOFER AM WHITE METAL CORROSION PROOFER Unknown Provider LAB POCT ORDERABLES - DEVICE Performing Organization Address City/State/ZIP Code Phon e Number POC [facility] [address] [place] [address] PCLX [facility] [place] [address] [place] [facility] [address] documented in [...] 120 mg (CARDIZEM Given 07/07/2021 2:46 PM WHITE METAL CORROSION PROOFER 120 mg CD/CARTIA XT) 120 mg, oral, Once, On Sat07/07/21 at 1430, For 1 dose, PACU (only), Swallow whole. Do NOT crush, chew or open capsule. erythromycin 5 mg/gram (0.5 %) ophthalmic Given 07/07/2021 2:46 PM WHITE METAL CORROSION PROOFER 1 cm ointment 1 cm (ROMYCIN) 1 [...] (1 %) injection Given 07/07/2021 10:46 AM WHITE METAL CORROSION PROOFER 10 mL Bilateral (XYLOCAINE) As needed, Starting on Sat07/07/21 at 0838, Intraprocedure (CV) Given 07/07/2021 8:39 AM WHITE METAL CORROSION PROOFER 10 mL Right Groin Given 07/07/2021 8:38 AM WHITE METAL CORROSION PROOFER 10 mL Left Groin LORazepam (ATIVAN) 1 mg tablet - ADS Ove rride Pull Starting on Sat07/07/21 at 1148, For 1 dose, Created b y cabinet override LORazepam tablet 1 mg (ATIVAN) Given 07/07/2021 12:25 PM WHITE METAL CORROSION PROOFER 1 mg 1 mg, oral, Once, On Sat07/07/21 at 1145, For 1 dose, PACU (only) nicotine polacrilex (NICORETTE) 2 mg gum - ADS Override Pull Starting on Sat07/07/21 at 1147, For 1 dose, Created b y cabinet override nicotine polacrilex gum 4 mg (NICORETTE) Given 07/07/2021 12:26 PM WHITE METAL CORROSION PROOFER 4 mg 4 mg, buccal, Every 1 [...] Recently Administered Medications Times are shown in WHITE METAL CORROSION PROOFER. Scheduled Medication Order 07/05/2021 07/06/2021 07/07/2021 [id number] [...] documented as of this encounter Care Teams Superintendent Car Construction Relationship Specialty Start Date End Date Elsewhere, Pcp PCP - General Internal Medicine 07/04/21 documented as of this encounter
--- OUTSIDE RECORDS SUMMARY | 2022-03-02 17:27 | XMS_ITS | Clinical Summary ---
:1990 Author Organization [facility] Address [address] [place] [address] Care Team Providers Name Role Phone Found, [...] for each transition of care or referral. UIBLUEPRINT Allergies Active Allergy Reactions Severity Noted Date Comments Ascorbate Unknown 01/12/2021 Bioflavonoids Unknown 01/12/2021 Cephalexin Unknown 01/12/2021 Choline Fenofibrate Unknown 01/12/2021 Inositol Unknown 01/12/2021 Kiwi Extract Anaphylaxis High 01/12/2021 Lemon Flavor Unknown 01/12/2021 Lemon Oil Unknown 01/12/2021 Spencer Flavor Unknown High 01/12/2021 Spencer Niacinamide Unknown 01/12/2021 Pantothenic Acid Unknown 01/12/2021 [...] mouth two times a capsule day. metoprolol succinate Take 25 mg by mouth 0 Active (TOPROL XL) 25 MG 24 two times a day. hour release tablet metoprolol tartrate Take 25 mg by mouth 0 Active (LOPRESSOR) 25 MG two times daily as tablet needed for Other (heart palpatations). melatonin 5 MG Take 10 mg by mouth 0 Active tablet daily at bedtime. MAGNESIUM GLYCINATE Take 100 mg by 0 Active OR mouth daily. venlafaxine Take 1 Capsule by 30 Capsule 0 01/17/2021 Active (EFFEXORXR) 150 MG mouth daily. Future 24 hour release management from capsule primary psychiatry provider. OLANZapine (ZYPREXA) Take 0.5-1 Tablets 15 Tablet 1 01/16/2021 Active 2.5 MG tablet by mouth every 4 hours as needed for [...] ss Type Group BCBS BCBS OUT OF [id number] 2019-Present [address] [address] [place] [address] T [address] (Home) [address] [place] [address] Luisito Rainey Personal/Family Self 1990 [address] (Home) [address] [place] [address] Luisito Rainey Personal/Family Self 1990 [address] (Home) [address] [facility] [address] Advance Directives Latest Code Status on File Code Status Date Activated Date Inactivated Comments Full Code 01/12/2021 10:57 AM 01/16/2021 4:39 PM Care Teams Vascular Technologist Relationship Specialty Start Date End Date Found, No Pcp, PCP - General 04/11/21 [address] [place] [address]
--- OUTSIDE RECORDS SUMMARY | 2022-03-02 17:27 | XMS_ITS | Encounter Summary ---
:1990 Author Organization [facility] Address [address] [place] [address] Care Team Providers Name Role Phone Elsewhere, Pcp Primary Care Provider Unavailable Reason for Visit Auth/Cert Specialty Diagnoses / Procedures Referred By Contact Refer red To Contact Diagnoses Tachycardia Supraventricular (HCC) Procedures HI EP EVAL W SUPRAVENT ABLATE DIAGNOSTIC EPS ABLATION - SVT Referral ID Status Reason Start Date Expiration Date Visits Requ ested Visits Authorized [id number] 1 1 Encounter Details Date Type Department Care Team Description 07/07/2021 Anesthesia Event Division of Cardiovascular Alex Mauro in [facility], MARKET MANAGER, SURFACE BOSS [place] [address] [address] [facility] [address] [place] [phone] Anesthesia Record Procedure Summary Procedure Name Responsible Anesthesiologist Anesthesia Start Ti me Anesthesia Stop Time DIAGNOSTIC EPS Yee Mauro, MARKET MANAGER, 07/07/21 0801 07/07 1107 SURFACE BOSS Events Date Time Event Comment 07/07/2021 0801 [...] 1,000 units/mL injection 7,000 Units heparin standard 02551 Units/250 mL in 0.45 % Sodium C [...] er 07/18/2021 How often do you attend caodaism or yazidi services? Never 07/18/2021 Do you belong to any clubs or organizations such as caodaism N o 07/18/2021 groups, unions, fraternal or [...] at Date Recorded Male 06/01/2020 11:57 AM COMPUTER LAB AIDE documented as of this encounter OR Notes Anesthesia Postprocedure Evaluation - Yee Mauro APRN, CRNA - 07/07/2021 11:35 AM CST Patient: Luisito Rainey Procedure Summary Date: 07/07/21 Room / Location: [place] [address] / [facility] Anesthesia Start: 800 Anesthesia Stop: Procedure: DIAGNOSTIC [...] Post Op nausea/vomiting: none Hydration status: euvolemic UTER LAB AIDE Anesthesia Preprocedure Evaluation - Yee Mauro APRN, [...] Pre-op diagnosis: Tachycardia Supraventricular (HCC) [I47.1] Location: [place] [address] / [facility] Surgeons: Rodrigo Gray M.D., Ph.D. Pertinent components [...] with patient /legal guardian or through an middleware solutions architect. Risks/Benefits/Alternatives of Blood transfusion discussed with patient / legal guardian, including an opportunity to ask questions and/or decline some or all transfusion therapies. The patient / legalguardian consented to the use of all blood products, as deemed medically necessary Approval to Proceed: approved for anesthesia UTER LAB AIDE Anesthesia Procedure Notes - Yee Mauro APRN, [...] yes Complications - arterial: none ATTESTATION STATEMENT UTER LAB AIDE documented in this encounter Plan of Treatment Not on filedocumented as of this encounter Procedures Procedure Name Priority Date/Time Associated Diagnosis Comme nts LDA ANE ARTERIAL Routine 07/07/2021 8:25 AM Resul ts for this LINE INSERTION COMPUTER LAB AIDE procedure are in the results section. HI ARTL CATH/CNULA Routine 07/07/2021 8:25 AM Res ults for this MONITOR PERC COMPUTER LAB AIDE procedure are i n the results section. documented in this encounter Results HI ARTL CATH/CNULA MONITOR PERC, LDA ANE ARTERIAL LINE INSERTION (07/07/2021 8:25 AM COMPUTER LAB AIDE) Narrative Yee Mauro APRN, CRNA - 2021 8:25 AM COMPUTER LAB AIDE Yee Mauro APRN, CRNA ? 07/07/2021 ??8:35 [...] caffeine-sodium benzoate injection Given 07/07/2021 9:52 AM COMPUTER LAB AIDE 250 mg intravenous, As needed, Starting on Sat07/07/21 at 0919, Anesthesia Intra-op Given 07/07/2021 9:19 AM COMPUTER LAB AIDE 250 mg clindamycin in D5W IVPB (CLEOCIN) Given 07/07/2021 8:29 AM COMPUTER LAB AIDE 900 mg intravenous, Administer over 30 Minutes, As needed, Starting on Sat07/07/21 at 0829, Anesthesia Intra-op fentaNYL injection (SUBLIMAZE) Given 07/07/2021 10:37 AM COMPUTER LAB AIDE 25 mcg intravenous, As needed, Starting on Sat07/07/21 at 1037, Anesthesia Intra-op heparin (porcine) 1,000 unit/mL Given 07/07/2021 10:12 AM COMPUTER LAB AIDE 1, 000 Units injection intravenous, As needed, Starting on Sat07/07/21 at 0901, Anesthesia Intra-op Given 07/07/2021 9:44 AM COMPUTER LAB AIDE 1,000 Units Given 07/07/2021 9:01 AM COMPUTER LAB AIDE 5,000 Units heparin (porcine) 100 Rate/Dose 07/07/2021 18 Units/kg/hr 14.94 Units/mL in NaCl 0.45% 250 Change 10:12 AM COMPUTER LAB AIDE mL/hr mL infusion intravenous, Continuous Infusion: Per Instructions PRN, Starting on Sat07/07/21 at 0903, Anesthesia Intra-op Rate/Dose Change 07/07/2021 9:43 AM COMPUTER LAB AIDE 15 Units/kg/hr 12.45 mL/hr New Bag 07/07/2021 9:03 AM COMPUTER LAB AIDE 12 Units/kg/hr 9.96 mL/hr isoproterenol 4 mcg/mL in NaCl Restarted 07/07/2021 10:25 0.1 mc g/kg/min 124.5 mL/hr 0.9% 250 mL infusion (ISUPREL) AM COMPUTER LAB AIDE intravenous, Continuous Infusion: Per Instructions PRN, Starting on Sat07/07/21 at 0939, Anesthesia Intra-op Rate/Dose Change 07/07/2021 10:15 AM COMPUTER LAB AIDE 0.1 mcg/kg/min 124.5 mL/hr Rate/Dose Change 07/07/2021 10:08 AM COMPUTER LAB AIDE 0.05 mcg/kg/min 62.25 mL/h r lactated ringers New Bag 07/07/2021 8:01 AM COMPUTER LAB AIDE intravenous, Continuous Infusion: Per Instructions PRN, Starting on Sat07/07/21 at 0801, Anesthesia Intra-op lactated ringers New Bag 07/07/2021 8:25 AM COMPUTER LAB AIDE intravenous, Continuous Infusion: Per Instructions PRN, Starting on Sat07/07/21 at 0825, Anesthesia Intra-op lidocaine (PF) (cardiac) injection Given 07/07/2021 10:40 AM COMPUTER LAB AIDE 80 mg intravenous, As needed, Starting on Sat07/07/21 at 1040, Anesthesia Intra-op midazolam (PF) injection (VERSED) Given 07/07/2021 10:58 AM COMPUTER LAB AIDE 2 mg intravenous, As needed, Starting on Sat07/07/21 at 1035, Anesthesia Intra-op Given 07/07/2021 10:35 AM COMPUTER LAB AIDE 2 mg phenylephrine 80 mcg/mL in Rate/Dose 07/07/2021 9:50 1.2 mcg/kg/min 74.7 mL/hr NaCl 0.9% 250 mL infusion Change AM COMPUTER LAB AIDE intravenous, Continuous Infusion: Per Instructions PRN, Starting on Sat07/07/21 at 0845, Anesthesia Intra-op Rate/Dose Change 07/07/2021 9:46 AM COMPUTER LAB AIDE 1 mcg/kg/min 62.25 mL/hr Rate/Dose Change 07/07/2021 9:45 AM COMPUTER LAB AIDE 0.9 mcg/kg/min 56.025 mL/hr propofol 10 mg/mL infusion Rate/Dose 07/07/2021 100 mcg/kg/min 49.8 mL/hr (DIPRIVAN) Change 10:43 AM COMPUTER LAB AIDE intravenous, Continuous Infusion: Per Instructions PRN, Starting on Sat07/07/21 at 0808, Anesthesia Intra-op Restarted 07/07/2021 10:40 AM COMPUTER LAB AIDE 75 mcg/kg/min 37.35 mL/hr Rate/Dose Change 07/07/2021 9:36 AM COMPUTER LAB AIDE 50 mcg/kg/min 24.9 mL/hr propofol bolus from bag (DIPRIVAN) Given 07/07/2021 10:43 AM COMPUTER LAB AIDE 25 mg intravenous, As needed, Starting on Sat07/07/21 at 0807, Anesthesia Intra-op Given 07/07/2021 10:39 AM COMPUTER LAB AIDE 50 mg Given 07/07/2021 8:19 AM COMPUTER LAB AIDE 50 mg protamine injection Given 07/07/2021 10:39 AM COMPUTER LAB AIDE 20 mg intravenous, As needed, Starting on Sat07/07/21 at 1037, Anesthesia Intra-op Given 07/07/2021 10:38 AM COMPUTER LAB AIDE 10 mg Given 07/07/2021 10:37 AM COMPUTER LAB AIDE 10 mg documented in this encounter Additional Health Concerns Assessment Noted Time PHQ-9 Depression Total Score: 11 09/09/2015 4:10 PM CD T documented as of this encounter Care Teams Field Crew Chief Relationship Specialty Start Date End Date Elsewhere, Pcp PCP - General Internal Medicine 07/04/21 documented as of this encounter
--- OUTSIDE RECORDS SUMMARY | 2022-03-02 17:27 | XMS_ITS | Encounter Summary ---
:1990 Author Organization [facility] Address [address] [facility] [place] [address] Care Team Providers Name Role Phone Unavailable Primary Care Provider Unavailable Encounter Details Date Type Department Care Team Description 09/25/2015 Telephone [facility] rse Advisors Yessenia Potts, RN [address] [place] [address] Social History Tobacco Use Types Packs/Day [...]
--- OUTSIDE RECORDS SUMMARY | 2022-03-02 17:27 | XMS_ITS | Encounter Summary ---
:1990 Author Organization [facility] Address [address] [place] [address]. [place] [address] Care Team Providers Name Role Phone Unavailable Primary Care Provider Unavailable Reason for Visit Reason Onset Date Comments Medication Question 12/18/2020 Encounter Details Date Type Department Care Team Description 12/18/2020 Telephone [facility] Nurse Gerry Winchester, boot trimmer Question Advisors [address] [place] [address] Social History Tobacco Use Types Packs/Day [...] Pt called to report they see a steward/stewardess room at [facility] Dr. Palacio who put the pt on a new heart medication called Corlanor which can lower heart rate. Pt also takes propanolol and is planning to take their dose tonight but is not sure if they can take this together with the new medication. Pt's current heart rate is 117 BPM due pt being anxious. Action: Pocketed Spring Assembler unsure if pt is able to take [...] Winchester RN 12/18/2020 8:00 PM [facility] Nurse Advisor COVID 19 Nurse Triage Plan/Patient Instructions Please be aware that novel coronavirus (COVID-19) may be circulating in the community. If you develop symptoms such as fever, cough, or SOB or if you have concerns about the presence of another infection including coronavirus (COVID- 19), please contact your health care provider or visit [email or web address]. Disposition/Instructions Additional COVID19 information to add for [...] full list on the EPA website: www.epa.gov/pesticide-registration/ otss-w-gewieldctysjs-bav-ebdtmqk-tllg-cov-2. ??? Cover your mouth and nose with a mask, tissue or washcloth to avoid spreading germs. ??? Wash your hands and face often. Use soap and water. ??? Caregivers in these groups are at risk for severe illness due to COVID-19: o People 65 years and older o People who live in a custodial or long-term care facility o People with [...] found in many medicines (both prescribed and fbxx-jyb-xdnhcab medicines). Read all labels to be sure [...] it can live on surfaces. ?? Common maintenance parts technician (household disinfectants) will kill the virus. Who is at risk? Anyone can catch COVID-19 if they???re around someone who has the virus. How can others protect themselves? ?? Stay away from people who have COVID-19 (or symptoms of COVID-19). ?? Wash hands often with soap and water. Or, use hand circular tank cooper with at least 60% alcohol. ?? Avoid touching the eyes, nose or mouth. ?? Wear a face mask when you go out in public, when sick or when caring for a sick person. Where can I get more information? [facility]: About COVID-19: [email or web address] ??? CDC: What to Do If You???re Sick: www.cdc.gov/coronavirus/2019-ncov/about/sxmtd-uaow-iguv.html ??? CDC: Ending Home Isolation: www.cdc.gov/coronavirus/2019-ncov/hcp/auaqreykayn-oc-fsce-patients.html ??? CDC: Caring for Someone: www.cdc.gov/coronavirus/2019-ncov/dw-hsa-kvr-sick/tkxk-oik-mtjazta.html ??? MD: Interim Guidance for Hospital Discharge to Home: www.health.[facility]/diseases/coronavirus/hcp/hospdischarge.pdf ??? [facility] clinical trials (COVID-19 research studies): clinicalaffairs.[facility]/opl-hljsngnk-gtndmp ??? Below are the COVID-19 hotlines at the [facility] ([facility]). Interpreters are available. o For health questions: Call [phone] or (7 a.m. to 7 p.m.) o For questions about schools and childcare: Call [phone] or (7 a.m. to 7 p.m.) Thank you for taking steps to prevent the spread of this virus. o Limit your contact with others. o Wear a simple mask to cover your cough. o Wash your hands well and often. Resources ??? [facility]: About COVID-19: [email or web address]/ ??? CDC: What to Do If You're Sick: www.cdc.gov/coronavirus/2019-ncov/about/ykqap-uqbi-pnsa.html ??? CDC: Ending Home Isolation: www.cdc.gov/coronavirus/2019-ncov/hcp/wubdkkgvynj-ws-tyyx-patients.html ??? CDC: Caring for Someone: www.cdc.gov/coronavirus/2019-ncov/hf-tpz-mft-sick/rdja-xpj-htzywed.html ??? [facility]: Interim Guidance for Hospital Discharge to Home: www.[facility]./diseases/coronavirus/hcp/hospdischarge.pdf ??? [facility] clinical trials (COVID-19 research studies): clinicalaffairs.[facility]/llf-wzdbmgea-ettpap ??? Below are the COVID-19 hotlines at the [facility] ([facility]). Interpreters are available. o For health questions: Call [phone] or (7 a.m. to 7 p.m.) o For questions about schools and childcare: Call [phone] or (7 a.m. to 7 p.m.) documented in this encounter Plan of Treatment Not on filedocumented as of this encounter Visit Diagnoses Not on filedocumented in this encounter
--- OUTSIDE RECORDS SUMMARY | 2022-03-02 17:27 | XMS_ITS | Encounter Summary ---
:1990 Author Organization [facility] Address [address] [place] [address]. [place] [address] Care Team Providers Name Role Phone No Ref-Primary, Physician Primary Care Provider [phone] Reason for Visit Reason Onset Date Comments Pt. Information/instruction 11/30/2018 Encounter Details Date Type Department Care Team Description 11/30/[address] [facility] Nurse Lilian Barron , Pt. Advisors RN Information/instruction [address] [place] [address] Social History Tobacco Use Types Packs/Day [...] to be called on Saturday am, at: [phone]. RN then left this message in [facility], as requested. Lilian Barron RN [facility] Nurse Advisors [phone] documented in this encounter Plan of Treatment Not on filedocumented as of this encounter Visit Diagnoses Not on filedocumented in this encounter Care Teams School Crossing Guard Relationship Specialty Start Date End Date No Ref-Primary, Physician PCP - General 03/15/21 documented as of this encounter
--- OUTSIDE RECORDS SUMMARY | 2022-03-02 17:27 | XMS_ITS | Encounter Summary ---
:1990 Author Organization [facility] Address [address] [place] [address] Care Team Providers Name Role Phone Unavailable [...]
--- OUTSIDE RECORDS SUMMARY | 2022-03-02 17:27 | XMS_ITS | Encounter Summary ---
:1990 Author Organization [facility] Address [address] [facility] [place] [place] [address] Care Team Providers Name Role Phone Unavailable Primary Care Provider Unavailable Encounter Details Date Type Department Care Team Description 10/03/2016 Telephone [facility] Nu rse Advisors June Law, RN [address] [place] [address] Social History Tobacco Use Types Packs/Day [...] and or prescribing MD. offered to page physician relations representative MD and declined. He stated that he [...]
--- OUTSIDE RECORDS SUMMARY | 2022-03-02 17:27 | XMS_ITS | Encounter Summary ---
:1990 Author Organization [facility] Address [address] [place] [address] Care Team Providers Name Role Phone Elsewhere, Pcp Primary Care Provider Unavailable Reason for Referral Outpatient (Routine) - Closed Specialty Diagnoses / Procedures Referred By Contact Refer red To Contact Diagnoses Tachycardia Supraventricular (HCC) Rodrigo Gray V., [facility] Procedures ECG Event Recorder Karley, Ph.D. [address] [place] [phone] Referral ID Status Reason Start Date Expiration Date Visits Requ ested Visits Authorized [id number] Closed 07/10/2021 07/10/2022 1 1 PROCESSING AUDITOR Reason for Visit Outpatient (Routine) - Closed Specialty Diagnoses / Procedures Referred By Contact Refer red To Contact Diagnoses Tachycardia Supraventricular (HCC) Rodrigo Gray V., [facility] Procedures ECG Event Recorder Karley, Ph.D. [address] [place] [phone] Referral ID Status Reason Start Date Expiration Date Visits Requ ested Visits Authorized [id number] Closed 07/10/2021 07/10/2022 1 1 Encounter Details Date Type Department Care Team Description 07/10/2021 Hospital Division of [place], Tachycardia Encounter Cardiovascular Rodrigo Arias Supraventr icular (HCC) Diseases in Karley, Ph.D. [place], [place] [address] [facility] [address] [place] [phone] [phone] Social History Tobacco Use Types Packs/Day Years [...] er 07/18/2021 How often do you attend advent or gnosticism services? Never 07/18/2021 Do you belong to any clubs or organizations such as advent N o 07/18/2021 groups, unions, fraternal or [...] to sleep or slept in a senior care (including now)? Education Answer Date Recorded What is the highest level of school you have GED or equivale nt 05/20/2021 completed or the highest degree you have received? 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 aeaqedajcyct-Ns-oijf Take 1 tablet by mouth 0 -minerals [...] Results f or this ALL CHARGES AM DATA PROCESSING AUDITOR Supraventricular (HCC) proce dure are in the results section. documented in this encounter Results EVENT MONITOR - ALL CHARGES (07/06/2021 6:30 AM DATA PROCESSING AUDITOR) Specimen (Source) Anatomical Collection Method Collection Time Re ceived Time Location / / Volume Laterality 07/12/2021 1:51 PM DATA PROCESSING AUDITOR Narrative [facility] - 07/13/2021 8:41 AM DATA PROCESSING AUDITOR 1. The patient was monitored from 06/01/2021 [...] to 150 BPM. No ectopy was seen. Bus Driver/Monitor: PANCHO Fraire/PANCHO Trevino Procedure Note Gordon Stephen [...] to 150 BPM. No ectopy was seen. Bus Driver/Monitor: PANCHO Fraire/PANCHO Trevino Rodrigo Gray M.D., Ph.D. CV CARDIAC SERVICE S PROCEDURES Performing Organization Address City/State/ZIP Code Phon e Number [facility] NA documented in this encounter Visit Diagnoses Diagnosis Tachycardia Supraventricular (HCC) documented in this encounter Additional Health Concerns Assessment Noted Time PHQ-9 Depression Total Score: 11 09/09/2015 4:10 PM CD T documented as of this encounter Care Teams Mail Service Coordinator Relationship Specialty Start Date End Date Elsewhere, Pcp PCP - General Internal Medicine 07/04/21 documented as of this encounter
--- OUTSIDE RECORDS SUMMARY | 2022-03-02 17:27 | XMS_ITS | Encounter Summary ---
:1990 Author Organization [facility] Address [address] [place] [address] Care Team Providers Name Role Phone Elsewhere, Pcp Primary Care Provider Unavailable Encounter Details Date Type Department Care Team Description 09/22/2021 Clinical Communication Department of Lorin Rodriguez Cardiovascular Medicine Aidee, Kilo in [facility] [address] [facility] [address] [place] [phone] Social History Tobacco Use Types Packs/Day Years [...] How often do you attend congregation or rastafarian services? 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 documented in this encounter Plan of Treatment Not on filedocumented as of this encounter Visit Diagnoses Not on filedocumented in this encounter Additional Health Concerns Assessment Noted Time PHQ-9 Depression Total Score: 11 09/09/2015 4:10 PM CD T documented as of this encounter Care Teams Corporate Coordinator Relationship Specialty Start Date End Date Elsewhere, Pcp PCP - General Internal Medicine 07/04/21 documented as of this encounter
--- OUTSIDE RECORDS SUMMARY | 2022-03-02 17:27 | XMS_ITS | Clinical Summary ---
:1990 Author Organization [facility] Address [address] [place] [address] Care Team Providers Name Role Phone Elsewhere, Pcp Primary Care Provider Unavailable Source Comments Patient records contain information from all sites at [facility]. For routine questions regarding patient records, call [phone] during business hours, M-F 8:00 AM - 5:00 PM Central Time. Record requests for emergency care only can be directed to [phone] at any time.[facility] Allergies Active Allergy Reactions Severity Noted Date [...] (see comments) Medium 01/21/2019 Cold so res [place] Other (see comments) 03/20/2003 [place] Anaphylaxis High 12/18/2013 [place] Flavor Other (see comments) High 01/12/2021 [place] Multivitamin With Other (see comments) 09/05/2012 CO LD SORE REACTION Iron,Other Minerals TO VARIOUS/NUMEROU S Niacinamide Other (see comments) Medium 01/21/2019 Cold so res [place] Other (see comments) 03/21/2003 Pantothenic Acid Other (see comments) Medium 01/21/2019 Col d sores Pineapple Anaphylaxis High 06/01/2020 Pyridoxine Other (see comments) Medium 01/21/2019 Cold so res Riboflavin (Vitamin B2) Other (see comments) Medium 9 Cold sores [place] Other (see comments) 03/20/2003 Thiamine (Vitamin B1) Other (see comments) Medium 01/21/2019 Cold sores Medications Medication Sig Dispensed Refills Start Date End Date Status rvutwkotxige-Jk-i Take 1 tablet by 0 03/08/2021 Active [...] often do you attend oriental orthodox or hoahaoism services? Never 07/18/2021 Do you [...] slept in a nursing home (including now)? Education Answer Date Recorded What is the highest level of school you have GED or equivale nt 05/20/2021 completed or the highest degree you have received? 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 Last Filed Vital Signs Vital Sign Reading Time Taken Comments Blood Pressure 98/43 07/07/2021 12:45 PM HAT STOCK LAMINATING MACHINE OPERATOR Pulse 101 07/07/2021 12:45 PM HAT STOCK LAMINATING MACHINE OPERATOR Temperature 36.9 ??C (98.5 ??F) 07/07/2021 7:18 AM HAT STOCK LAMINATING MACHINE OPERATOR Respiratory Rate 14 02/07/2021 4:14 AM CDT Oxygen Saturation 100% 07/07/2021 12:45 PM HAT STOCK LAMINATING MACHINE OPERATOR Inhaled Oxygen Concentration - - Weight 83 kg (182 lb 15.7 oz) 07/06/2021 1:55 PM HAT STOCK LAMINATING MACHINE OPERATOR Height 172 cm (5' 7.72) 07/06/2021 1:55 PM HAT STOCK LAMINATING MACHINE OPERATOR Body Mass Index 28.06 07/06/2021 1:55 PM HAT STOCK LAMINATING MACHINE OPERATOR Plan of Treatment Health Maintenance Due Date Last Done Comments Depression Monitoring (PHQ-9) 1990 Hepatitis C Screening 1990 Tobacco Cessation counseling 1991 Pneumococcal vaccine (0-64 years) 09/11/1997 (1 - PCV) COVID-19 Vaccine (4 - Booster for 07/18/2021 05/23/2021, , Pfizer series) 10/25/2020 Influenza Vaccine (#1) 2022 05/10/2021, 02/13/2017, 06/11/2013, Additional history exists DTaP,Tdap,and Td Vaccines (8 - Td 07/18/2028 07/18/2018, , or Tdap) 02/13/2005, Additional history exists Hepatitis B Vaccines Completed 01/27/1997, 08/02/1994, 06/01/1994 Insurance Payer Benefit Plan / Subscriber ID Effective Dates Phone Addre ss Type Group [facility] [id number] 2019-[place] [phone] [address] [id number] PPO [facility] t [address] [place] [phone] Care Teams Combatant Diver Officer Relationship Specialty Start Date End Date Elsewhere, Pcp PCP - General Internal Medicine 07/04/21
--- OUTSIDE RECORDS SUMMARY | 2022-03-02 17:27 | XMS_ITS | Encounter Summary ---
:1990 Author Organization [facility] Address [address] [place] [address] Care Team Providers Name Role Phone Unavailable [...]
--- OUTSIDE RECORDS SUMMARY | 2022-03-02 17:27 | XMS_ITS | Encounter Summary ---
:1990 Author Organization [facility] Address [address] [place] [address] Care Team Providers Name Role Phone Elsewhere, Pcp Primary Care Provider Unavailable Encounter Details Date Type Department Care Team Description 07/06/2021 Hospital Department of [place], Tachycardia Encounter Radiology, [place] Rodrigo Arias Supravent ricular (HCC) dakota Daniel M.D., Ph.D. [place], [address] [place] [address] [place] [address] [place], [place] [phone] (Work) [phone] Social History Tobacco Use Types Packs/Day Years [...] er 07/18/2021 How often do you attend latter day or lutheran services? Never 07/18/2021 Do you belong to any clubs or organizations such as latter day N o 07/18/2021 groups, unions, fraternal or [...] place to sleep or slept in a penitentiary (including now)? Education Answer Date Recorded What is the highest level of school you have GED or equivale nt 05/20/2021 completed or the highest degree you have received? Sex Assigned at Date Recorded Male 06/01/2020 11:57 AM FOREST FIRE PREVENTION SPECIALIST documented as of this encounter Medications at [...] mouth at 0 03/01/20 21 tablet bedtime. vfmujklxvjcz-Fd-qoyk Take 1 tablet by mouth 0 -minerals [...] AND LATERAL 2 (most inpatients 10:50 AM FOREST FIRE PREVENTION SPECIALIST Supraventricular (HC C) this procedure VIEWS and all are in the outpatients) results section. documented in this encounter Results DX Chest AP or PA and Lateral 2 Views (07/06/2021 10:50 AM FOREST FIRE PREVENTION SPECIALIST) Anatomical Region Laterality Modality Chest, Thoracic RST LOS, Thoracic ARZ LOS, Thoracic N/A Digital Radiography FLA LOS Specimen (Source) Anatomical Collection Method Collection Time Re ceived Time Location / / Volume Laterality 07/06/2021 10:52 AM FOREST FIRE PREVENTION SPECIALIST Impressions 07/06/2021 11:36 AM FOREST FIRE PREVENTION SPECIALIST No change since 02/19/2021. Negative [facility]lie st[address] ?? Narrative 07/06/2021 11:36 AM FOREST FIRE PREVENTION SPECIALIST EXAM: ??DX CHEST AP OR PA AND [...] COVID19 Pending 07/06/2021 07/06/2021 07/06/2021 5:05 PM FOREST FIRE PREVENTION SPECIALIST Assessment Noted Time PHQ-9 Depression Total Score: 11 09/09/2015 4:10 PM CD T documented as of this encounter Care Teams Online Tutor Relationship Specialty Start Date End Date Elsewhere, Pcp PCP - General Internal Medicine 07/04/21 documented as of this encounter
--- OUTSIDE RECORDS SUMMARY | 2022-03-02 17:27 | XMS_ITS | Encounter Summary ---
:1990 Author Organization [facility] Address [address] [place] [address] Care Team Providers Name Role Phone Elsewhere, Pcp Primary Care Provider Unavailable Reason for Visit Auth/Cert Specialty Diagnoses / Procedures Referred By Contact Refer red To Contact Diagnoses Tachycardia Supraventricular (HCC) Procedures FL EP EVAL W SUPRAVENT ABLATE DIAGNOSTIC EPS ABLATION - SVT Referral ID Status Reason Start Date Expiration Date Visits Requ ested Visits Authorized [id number] 1 1 Encounter Details Date Type Department Care Team Description 07/07/2021 Hospital Division of [place], Tachycardia Sup raventricular (HCC); Encounter Cardiovascular Rodrigo Arias Tachbeniardi a Supraventricular (HCC) Diseases in M.D., Ph.D. [place], [place] [address] [facility] [address] [place] [phone] Social History Tobacco Use Types Packs/Day Years [...] How often do you attend confucianism or cheondoism services? Never 07/18/2021 Do you [...] Date Recorded Male 06/01/2020 11:57 AM RISK CONTROL DIRECTOR documented as of this encounter Last Filed Vital Signs Vital Sign Reading Time Taken Comments Blood Pressure 98/43 07/07/2021 12:45 PM RISK CONTROL DIRECTOR Pulse 101 07/07/2021 12:45 PM RISK CONTROL DIRECTOR Temperature 36.9 ??C (98.5 ??F) 07/07/2021 7:18 AM RISK CONTROL DIRECTOR Respiratory Rate - - Oxygen Saturation 100% 07/07/2021 12:45 PM RISK CONTROL DIRECTOR Inhaled Oxygen Concentration - - Weight - - Height - - Body Mass Index - - documented in this encounter Discharge Instructions Discharge InstructionsFYanna prescott - 07/07/2021 12:26 PM CST You were discharged from the [facility] CVD Interventional/Heart Rhythm Service. Please identify this [...] 4:00 p.m., contact the Electrophysiology Service at [phone]. For questions occurring after business hours, on weekends, nights, or holidays call [phone] and ask for Electrophysiology Full Charge Bookkeeper. Heart Failure Assessment: Weigh yourself at the [...] avoid/skip your follow-up appointments, they are important! CONTROL DIRECTOR documented in this encounter Medications at Time [...] mouth at 0 03/01/20 21 tablet bedtime. rflmebytkzai-Ph-gbjv Take 1 tablet by mouth 0 -minerals [...] instructions were reviewed in detail as per [id number] with patient and family and they verbalized understanding. Follow up appointment is arranged. Patient was dismissed when discharge criteria was met, accompanied byfriendAll questions answered. CONTROL DIRECTOR documented in this encounter Plan of Treatment Not on filedocumented as of this encounter Procedures Procedure Name Priority Date/Time Associated Diagnosis Comme nts ECG Routine 07/07/2021 11:37 Results for this AM RISK CONTROL DIRECTOR procedure are i n the results section. HEART RHYTHM Routine 07/07/2021 10:57 Tachycardia Results for this PROCEDURE AM RISK CONTROL DIRECTOR Supraventricular (HCC) proce dure are in the results section. ACT, POCT, B Routine 07/07/2021 10:45 Results for this AM RISK CONTROL DIRECTOR procedure are i n the results section. ACT, POCT, B Routine 07/07/2021 10:07 Results for this AM RISK CONTROL DIRECTOR procedure are i n the results section. ACT, POCT, B Routine 07/07/2021 9:40 Results for this AM RISK CONTROL DIRECTOR procedure are i n the results section. ACT, POCT, B Routine 07/07/2021 9:22 Results for this AM RISK CONTROL DIRECTOR procedure are i n the results section. ABG AND LYTES Routine 07/07/2021 9:19 Results for this EG6+, POCT, B AM RISK CONTROL DIRECTOR procedure are in the results section. documented in this encounter Results ECG 12 Lead (07/07/2021 11:37 AM RISK CONTROL DIRECTOR) P athologist Signature Ventricular Rate 92 BPM MUSE ECG/Min FL Interval 144 ms MUSE QRSD Interval 90 ms MUSE QT Interval 346 ms MUSE QTC Interval 427 ms MUSE P [place] 51 degrees MUSE R [place] -3 degrees MUSE T Wave [place] 43 degrees MUSE Specimen Anatomical Collection Method Collection Time Receive d Time (Source) Location / / Volume Laterality 07/07/2021 11:37 07/07/2021 AM RISK CONTROL DIRECTOR 11:38 AM RISK CONTROL DIRECTOR Impressions MUSE - 07/07/2021 11:38 AM RISK CONTROL DIRECTOR Normal sinus rhythm Normal ECG When compared [...] MUSE NA DIAGNOSTIC EPS (07/07/2021 10:57 AM RISK CONTROL DIRECTOR) Anatomical Region Laterality Modality X-Ray Angiography Specimen (Source) Anatomical Collection Method Collection Time Re ceived Time Location / / Volume Laterality 07/07/2021 8:38 AM RISK CONTROL DIRECTOR Narrative 07/07/2021 11:38 AM RISK CONTROL DIRECTOR For the complete report, see the Order-L [...] complete report, see the Order-L evel Documents. Rodirgo Gray M.D., Ph.D. CV ELECTROPHYSIOLO GY PROCS ACT (Activated Clotting Time), POCT (07/07/2021 10:45 AM RISK CONTROL DIRECTOR) P athologist Signature Activated 114 84 - 139 07/07/2021 PCSM Clotting Time, sec 10:52 AM RISK CONTROL DIRECTOR POCT Specimen Anatomical Collection Method Collection Time Receive d Time (Source) Location / / Volume Laterality Blood 07/07/2021 10:45 07/07/2021 AM RISK CONTROL DIRECTOR 10:53 AM RISK CONTROL DIRECTOR Unknown Provider LAB POCT ORDERABLES - DEVICE Performing Organization Address City/State/ZIP Code Phon e Number POC RST [facility] INPATIENT [address] [place], [place] [address] [place] [address] [place] POC [address] (ABNORMAL) ACT (Activated Clotting Time), POCT (07/07/2021 10:07 AM RISK CONTROL DIRECTOR) P athologist Signature Activated 211 (H) 84 - 139 07/07/2021 PCSM Clotting Time, sec 10:16 AM RISK CONTROL DIRECTOR POCT Specimen Anatomical Collection Method Collection Time Receive d Time (Source) Location / / Volume Laterality Blood 07/07/2021 10:07 07/07/2021 AM RISK CONTROL DIRECTOR 10:17 AM RISK CONTROL DIRECTOR Unknown Provider LAB POCT ORDERABLES - DEVICE Performing Organization Address City/[facility] Phon e Number POC [facility] INPATIENT [address] [place], [place] [address] [place] [address] [place] POC [address] (ABNORMAL) ACT (Activated Clotting Time), POCT (07/07/2021 9:40 AM RISK CONTROL DIRECTOR) P athologist Signature Activated 211 (H) 84 - 139 07/07/2021 PCSM Clotting Time, sec 9:49 AM RISK CONTROL DIRECTOR POCT Specimen Anatomical Collection Method Collection Time Receive d Time (Source) Location / / Volume Laterality Blood 07/07/2021 9:40 AM 2 9:49 RISK CONTROL DIRECTOR AM RISK CONTROL DIRECTOR Unknown Provider LAB POCT ORDERABLES - DEVICE Performing Organization Address City/[facility] Phon e Number POC [facility] IN[facility]IENT [address] [place], [place] [address] [place] [address] [place] POC [address] (ABNORMAL) ACT (Activated Clotting Time), POCT (07/07/2021 9:22 AM RISK CONTROL DIRECTOR) P athologist Signature Activated 216 (H) 84 - 139 07/07/2021 PCSM Clotting Time, sec 9:33 AM RISK CONTROL DIRECTOR POCT Specimen Anatomical Collection Method Collection Time Receive d Time (Source) Location / / Volume Laterality Blood 07/07/2021 9:22 AM 2 9:33 RISK CONTROL DIRECTOR AM RISK CONTROL DIRECTOR Unknown Provider LAB POCT ORDERABLES - DEVICE Performing Organization Address City/[facility] Phon e Number POC [facility] [address] [place], [place] [address] [place] [address] [place] POC [address] (ABNORMAL) ABG and Lytes, POCT (07/07/2021 9:19 AM RISK CONTROL DIRECTOR) P athologist Signature Sample Site, Artline 07/07/2021 PCLX POCT 9:33 AM RISK CONTROL DIRECTOR Comment: ----ADDITIONAL INFORMATION---- Performed at the Point of Care pH, POCT 7.34 (L) 7.35 - 7.45 07/07/2021 9:33 AM RISK CONTROL DIRECTOR PCLX Comment: ----ADDITIONAL INFORMATION---- Performed at the Point of Care pCO2, POCT 51 (H) 35 - 48 mm Hg 07/07/2021 9:33 AM RISK CONTROL DIRECTOR PC LX Comment: ----ADDITIONAL INFORMATION---- Performed at the Point of Care pO2, POCT 151 (H) 83 - 108 mm Hg 07/07/2021 9:33 AM RISK CONTROL DIRECTOR PC LX Comment: ----ADDITIONAL INFORMATION---- Performed at the Point of Care Base, POCT 2 -2 - 3 mmol/L 07/07/2021 9:33 AM RISK CONTROL DIRECTOR PC LX Comment: ----ADDITIONAL INFORMATION---- Performed at the Point of Care HCO3, POCT 28 (H) 22 - 26 mmol/L 07/07/2021 9:33 AM RISK CONTROL DIRECTOR P CLX Comment: ----ADDITIONAL INFORMATION---- Performed at the Point of Care Sodium, POCT, B 140 135 - 145 mmol/L 07/07/2021 9:33 A M RISK CONTROL DIRECTOR PCLX Comment: ----ADDITIONAL INFORMATION---- Performed at the Point of Care Potassium, POCT, B 3.5 (L) 3.6 - 5.2 mmol/L 07/07/2021 9:3 3 AM RISK CONTROL DIRECTOR PCLX Comment: ----ADDITIONAL INFORMATION---- Performed at the Point of Care Hematocrit, POCT, B 41.0 38.3 - 48.6 % 07/07/2021 9:33 AM RISK CONTROL DIRECTOR PCLX Comment: ----ADDITIONAL INFORMATION---- Performed at the Point of Care Specimen Anatomical Collection Method Collection Time Receive d Time (Source) Location / / Volume Laterality Blood 07/07/2021 9:19 AM 9:33 RISK CONTROL DIRECTOR AM RISK CONTROL DIRECTOR Unknown Provider LAB POCT ORDERABLES - DEVICE Performing Organization Address City/State/ZIP Code Phon e Number POC [facility] [address] [place] [address] PCLX [facility] [place] [address] [place] POC [address] documented in this [...] 120 mg (CARDIZEM Given 07/07/2021 2:46 PM RISK CONTROL DIRECTOR 120 mg CD/CARTIA XT) 120 mg, oral, Once, On Sat07/07/21 at 1430, For 1 dose, PACU (only), Swallow whole. Do NOT crush, chew or open capsule. erythromycin 5 mg/gram (0.5 %) ophthalmic Given 07/07/2021 2:46 PM RISK CONTROL DIRECTOR 1 cm ointment 1 cm (ROMYCIN) 1 [...] 1 mg (ATIVAN) Given 07/07/2021 12:25 PM RISK CONTROL DIRECTOR 1 mg 1 mg, oral, Once, On Sat07/07/21 at 1145, For 1 dose, PACU (only) nicotine polacrilex (NICORETTE) 2 mg gum - ADS Override Pull Starting on Sat07/07/21 at 1147, For 1 dose, Created b y cabinet override nicotine polacrilex gum 4 mg (NICORETTE) Given 07/07/2021 12:26 PM RISK CONTROL DIRECTOR 4 mg 4 mg, buccal, Every 1 [...] Recently Administered Medications Times are shown in RISK CONTROL DIRECTOR. Scheduled Medication Order 07/05/2021 07/06/2021 07/07/2021 dilTIAZem [...] documented as of this encounter Care Teams Senior Boiler Operator Relationship Specialty Start Date End Date Elsewhere, Pcp PCP - General Internal Medicine 07/04/21 documented as of this encounter
--- OUTSIDE RECORDS SUMMARY | 2022-03-02 17:27 | XMS_ITS | Encounter Summary ---
:1990 Author Organization [facility] Address [address] [place] [address] Care Team Providers Name Role Phone Found, No Pcp MD Primary Care Provider Unavailable Reason for Visit Reason Comments Chest Pain CRISIS EVALUATION--ED Encounter Details Date Type Department Care Team Description 04/11/2021 Emergency [facility] Yee Powell, Heart palpitations (Primary Dx); [address] [facility]. PA-C Anxiety (HRC); [place] [address] [address] [facility] Suicidal ideation [phone] [place], [place] [phone] (Wo rk) Social History Tobacco Use Types [...] be sent through Care Everywhere. Supraventricular Tachycardia (Polish)documented in this encounter Medications at Time of [...] mg by mouth 0 (LOPRESSOR) 25 MG tablet two times daily as needed for Other (heart palpatations). OLANZapine (ZYPREXA) 2.5 Take 0.5-1 Tablets by 15 Tablet 1 01/16/2021 MG tablet mouth every 4 hours as needed for Other (Severe anxiety, agitation or psychosis.). Future management from primary psychiatry provider. QUEtiapine (SEROQUEL) Take 300 mg by mouth 0 100 MG tablet daily at bedtime. venlafaxine (EFFEXORXR) Take 1 Capsule by 30 Capsule 0 01/17 150 MG 24 hour release mouth daily. Future capsule management from primary psychiatry provider. documented as of this encounter ED Notes Stephanie Carrillo RN - 04/11/2021 8:26 PM CDT [facility] ED Nursing Discharge Note Patient [...] patient came to the ED from the [facility], [phone]=[phone]. He presented to the ED with a medication list but no other information from [facility]. I called & spoke to Garrison [...] [facility] due to his concern about his physical health (he has a history of heart issues). BOBBY Johnson Yee Powell PA-C - 04/11/2021 4:54 PM CDT [facility] Emergency Medicine Visit Note Chief Complaint: Chest Pain and CRISIS EVALUATION--ED Luisito Rainey is a 30 y.o. old male presents from inpatient treatment facility [facility]. Hestates he is chronically suicidal, no [...] was completed with the patient. A social work professor, patient's Nurse and me were all present [...] infectious or metabolic cause of current condition. forestry worker consultation ordered. Based on initial physical exam and chart review lab work was indicated at this time. CBC, BMP, TSH troponin and ECG. Likely anxiety but will do work up if negative he can follow up with his meal packer. His lump is likely a lymphnode, will [...] time. Pending labs and d/c back to [place]. [GT] 1903 Reviewed labs which is all in normal range. [GT] 1906 Updated patient. He is lying in bed cooperative, alert and oriented. Will f/u with his meal packer on 04/20/21 and speak to his PCP [...] procedure are i n the results section. [id number] ELECTROCARDIOGRAM STAT 04/11/2021 4:58 R esults for [...] Organization Address City/State/ZIP Code Phon e Number [address] [address] TSH (04/11/2021 5:04 PM CDT) athologist Signature TSH, Sensitive 1.19 0.30 - 04/11/2021 [facility] 4.50 6:25 PM CDT HOSPITAL uIU/mL Specimen Anatomical Collection Method / Collection Time Recei shakeel Time (Source) Location / Volume Laterality Blood Venipuncture / 04/11/2021 5:04 04/11/2021 5:08 Unknown PM CDT PM CDT Arnaldo Parker Gem [facility] LAB_1 Performing Organization Address [facility]/ZIP [facility] Phon e Number [address] [address] Troponin I (04/11/2021 5:04 PM CDT) athologist Signature Troponin I <0.01 0.00 - 0.03 04/11/2021 [facility] ng/mL 5:42 PM CDT HOSPITAL Specimen Anatomical Collection Method / Collection Time Recei shakeel Time (Source) Location / Volume Laterality Blood Venipuncture / 04/11/2021 5:04 04/11/2021 5:08 Unknown PM CDT PM CDT Arnaldo Parker Gem [facility] LAB_1 Performing Organization Address [facility] e Number [address] [address] Basic Metabolic Panel (04/11/2021 5:04 PM CDT) [...] 5:08 Unknown PM CDT PM CDT Arnaldo Elena Rabago PA-C LAB_1 Performing Organization Address [facility]/ZIP Code Phon e Number [facility] [address] [place] [address] ECG 12-Lead STAT (04/11/2021 4:58 PM CDT) P athologist Signature Ventricular Rate 63 BPM [facility] Atrial Rate 63 BPM [facility] P-R Interval 128 ms [facility] QRS Duration 94 ms [facility] QT 368 ms [facility] QTc 376 ms [facility] P [place] 23 degrees MUSE [facility] T [place] 44 degrees [facility] Specimen (Source) Anatomical Collection Method Collection Time Re ceived Time Location / / Volume Laterality 04/11/2021 4:58 PM CDT Narrative [facility] - 04/12/2021 8:02 AM CDT Sinus rhythm Normal ECG No previous ECGs available Confirmed by MD BANG SUVEER ([id number]) o n 04/12/2021 8:02:33 AM Procedure Note Nimo Bang MD - 04/12/2021Formatti ng of this note might be different from the original. Sinus rhythm Normal ECG No previous ECGs available Confirmed by MD BANG SUVEER ([id number]) o n 04/12/2021 8:02:33 AM Arnaldo Elena Rabago PA-C EKG Performing Organization Address [facility] Phon e Number [facility] [address] [place] [address] documented in this encounter Visit Diagnoses Diagnosis Heart palpitations - Primary Palpitations Anxiety (HRC) Anxiety state, unspecified Suicidal ideation Triage Assessment Note - Stephanie Carrillo RN - 04/11/2021 4:52 PM CDT Patient arrived by [facility] from [place] with chief complaint: Chest pain with suicidal comments Symptoms/background (EMS narrative): Pt comes from the day program at [facility] after feeling like sabrina had chest pain and suicidal thoughts. EMS [...] required. documented in this encounter Care Teams Embossing Clerk Relationship Specialty Start Date End Date Found, No Pcp, PCP - General 04/11/21 [address] [place] [address] documented as of this encounter
--- OUTSIDE RECORDS SUMMARY | 2022-03-02 17:27 | XMS_ITS | Encounter Summary ---
:1990 Author Organization [facility] Address [address] [place] [address] Care Team Providers Name Role Phone Elsewhere, Pcp Primary Care Provider Unavailable Reason for Referral Outpatient (Routine) - Closed Specialty Diagnoses / Procedures Referred By Contact Refer red To Contact Diagnoses Tachycardia Supraventricular (HCC) Rodrigo Gray V., [facility] Procedures ECG Ambulatory Real Time Cardiac Monitoring Karley, Ph.D. [address] [place], [place] [phone] Referral ID Status Reason Start Date Expiration Date Visits Requ ested Visits Authorized [id number] Closed 08/08/2021 08/08/2022 1 1 SFORMATION ANALYST Reason for Visit Outpatient (Routine) - Closed Specialty Diagnoses / Procedures Referred By Contact Refer red To Contact Diagnoses Tachycardia Supraventricular (HCC) Rodrigo Gray V., [facility] Procedures ECG Ambulatory Real Time Cardiac Monitoring Karley, Ph.D. [address] [place] [phone] Referral ID Status Reason Start Date Expiration Date Visits Requ ested Visits Authorized [id number] Closed 08/08/2021 08/08/2022 1 1 Encounter Details Date Type Department Care Team Description 08/08/2021 Hospital Division of [place], Tachycardia Encounter Cardiovascular Rodrigo Arias Supraventr icular (HCC) Diseases in Karley, Ph.D. [place], [place] [address] [facility] [address] [place] [phone] Social History Tobacco Use Types Packs/Day Years [...] How often do you attend congregation or yarsanism services? Never 07/18/2021 Do you [...] or slept in a chcf (including now)? Education Answer Date Recorded What is the highest level of school you have GED or equivale nt 05/20/2021 completed or the highest degree you have received? Sex Assigned at Date Recorded Male 06/01/2020 11:57 AM TRANSFORMATION ANALYST documented as of this encounter Medications at [...] mouth at 0 03/01/20 21 tablet bedtime. kxucemirhupm-Ai-pdmi Take 1 tablet by mouth 0 -minerals [...] Duration 0 sec duration INFOBIONIC MOME [place] 0% percent INFOBIONIC MOME [place] Runs 0 count INFOBIONIC MOME SVT Runs 0 count INFOBIONIC MOME Symptom Count 136 count INFOBIONIC MOME Specimen (Source) Anatomical Collection Method Collection Time Re ceived Time Location / / Volume Laterality 08/09/2021 7:23 AM TRANSFORMATION ANALYST Narrative INFOBIONIC MOME - 09/20/2021 8:25 AM [...] rate varied from 74 to 170 BPM. Delivery Sales Worker: PANCHO Wiggins/ PANCHO Lee Procedure Note Bernabe [...] rate varied from 74 to 170 BPM. Delivery Sales Worker: PANCHO Wiggins/ PANCHO Lee Rodrigo Gray M.D., Ph.D. CV CARDIAC SERVICE S PROCEDURES Performing Organization Address City/State/ZIP Code Phon e Number INFOBIONIC MOME INFOBIONIC MOME NA documented in this encounter Visit Diagnoses Diagnosis Tachycardia Supraventricular (HCC) documented in this encounter Additional Health Concerns Assessment Noted Time PHQ-9 Depression Total Score: 11 09/09/2015 4:10 PM CD T documented as of this encounter Care Teams Hvac Sales Engineer Relationship Specialty Start Date End Date Elsewhere, Pcp PCP - General Internal Medicine 07/04/21 documented as of this encounter
--- OUTSIDE RECORDS SUMMARY | 2022-03-02 17:27 | XMS_ITS | Encounter Summary ---
:1990 Author Organization [facility] Address [facility] [place] [address] Care Team Providers Name Role Phone Unavailable Primary Care Provider Unavailable Encounter Details Date Type Department Care Team Description 08/20/2015 Telephone [facility] Gisele Agrawal, RN [address] [place] [address] Social History Tobacco Use Types Packs/Day [...] reality, disturbed ability to think, perceive and magazine editor clearly. ? NO Previously evaluated and worsening [...] if symptoms worsen or new symptoms develop. NE PATROLLER documented in this encounter Plan of Treatment Not on filedocumented as of this encounter Visit Diagnoses Not on filedocumented in this encounter
--- OUTSIDE RECORDS SUMMARY | 2022-03-02 17:27 | XMS_ITS | Encounter Summary ---
:1990 Author Organization [facility] Address [address] [place] [address] Care Team Providers Name Role Phone Unavailable [...]
--- OUTSIDE RECORDS SUMMARY | 2022-03-02 17:27 | XMS_ITS | Encounter Summary ---
:1990 Author Organization [facility] Address [address] [place] [address] Care Team Providers Name Role Phone No Ref-Primary, Physician Primary Care Provider [phone] Reason for Visit Reason Comments Chest Pain Encounter Details Date Type Department Care Team Description 03/15/2021 Emergency [facility] Arnaldo Gutierrez MD Chest pain, non-cardiac; [place] [facility] [address] [facility] Tach yarrhythmia Dept ER [address] [place] [address] [place], [place] [phone] (Work) [phone] Social History Tobacco Use Types Packs/Day Years [...] arrhythmia, you should schedule follow-up with an computed tomography technologist. documented in this encounter Medications at Time [...] Pt presents to ED via EMS from [facility]. Pt reports CP that started today at 1100. Pt states pain midsternal and was not brought on by any precipitating factors. Pt reports pain has been intermittent stabbing pain. Pt c/o palpitations and fluttering in chest. Nelly Blank RN - 03/15/2021 1:20 PM CDT Bed: ED04 Expected date: Expected time: Means of arrival: Comments: [facility] Arnaldo Gutierrez MD - 03/15/2021 1:20 PM CDT History Chief Complaint Patient presents with ??? Chest Pain HPI Luisito Rainey is a 30 year old male who comes in from [facility] because of chest pain. He describes today [...] May 26, 2019. He follows with a proof load mechanic up in [place] where he is from. He has a history of ADHD and anxiety. He is Covid vaccinated. He has not had Covid infection. He has been at [facility] for 9 days for benzodiazepine abuse but [...] EKG: none Rhythm: normal sinus Rate: normal [place]: normal Ectopy: none Conduction: normal ST Segments/ T Waves: No ST-T wave changes Q Waves: none Comparison to prior: No old EKG available Clinical Impression: normal EKG Critical Care time: none Results for orders placed or performed during the hospital encounter of 03/15/21 (from the past 24 hour(s)) [place] Draw Narrative The following orders were created for panel order [place] Draw. Procedure Abnormality Status --------- ------ Extra Blue Top Tube[[id number]] Final result Extra Red Top Tube[[id number]] Final result Extra Green Top (Happy...[[id number]] Final result Extra Green Top (Happy...[[id number]] Final result Extra Purple Top Tube[[id number]] Final result Please view results for these tests on the individual orders. CBC with platelets differential Narrative The following orders were created for panel order CBC with platelets differential. Procedure Abnormality Status --------- ------ CBC with platelets and d...[[id number]] Abnormal Final result Please view results for [...] Range Hold Specimen JIC Extra Green Top (Happy Heparin) Tube Result Value Ref Range Hold Specimen JIC Extra Green Top (Happy Heparin) Tube Result Value Ref Range Hold [...] (with Medical Decision Making) 30-year-old male at [facility] for benzodiazepine dependence presented with chest pains [...] He can safely return to treatment at [facility]. He should schedule follow-up with electrophysiology regarding the tachyarrhythmia. I have reviewed the nursing notes. I have reviewed the findings, diagnosis, plan and need for follow up with the patient. New Prescriptions No medications on file Final diagnoses: Chest pain, non-cardiac Tachyarrhythmia 03/15/2021 [facility] EMERGENCY DEPT Arnaldo Gutierrez MD [...] is unremarkable. BRENDA FELTON MD SYSTEM ID: [id number] Narrative 03/15/2021 4:26 PM CDT CHEST TWO [...] is unremarkable. BRENDA FELTON MD SYSTEM ID: [id number] Arnaldo Gutierrez MD IMG DIAGNOSTIC IMAGING ORDER ELIZA (ABNORMAL) CBC with platelets and differential (03/15/2021 2:05 PM CDT) [facility] Method Time Signature WBC Count 11.1 (H) 4.0 - 03/15/2021 CT [facility] 11.0 2:20 PM CDT 10e3/uL RBC Count 5.15 4.40 - 03/15/2021 CT [facility] 5.90 2:20 PM CDT 10e6/uL Hemoglobin 16.1 13.3 - 03/15/2021 CT [facility] 17.7 g/dL 2:20 PM CDT Hematocrit 45.9 40.0 - 03/15/2021 CT [facility] 53.0 % 2:20 PM CDT MCV 89 78 - 100 03/15/2021 CT [facility] fL 2:20 PM CDT MCH 31.3 26.5 - 03/15/2021 CT [facility] 33.0 pg 2:20 PM CDT MCHC 35.1 31.5 - 03/15/2021 CT [facility] 36.5 g/dL 2:20 PM CDT RDW 12.2 10.0 - 03/15/2021 CT [facility] 15.0 % 2:20 PM CDT Platelet Count 226 150 - 450 03/15/2021 CT [facility] 10e3/uL 2:20 PM CDT % Neutrophils 77 % 03/15/2021 CT [facility] 2:20 PM CDT % Lymphocytes 14 % 03/15/2021 CT [facility] 2:20 PM CDT % Monocytes 7 % 03/15/2021 CT [facility] 2:20 PM CDT % Eosinophils 1 % 03/15/2021 CT [facility] 2:20 PM CDT % Basophils 1 % 03/15/2021 CT [facility] 2:20 PM CDT % Immature 0 % 03/15/2021 CT [facility] Granulocytes 2:20 PM CDT NRBCs per 100 0 <1 /100 03/15/2021 CT [facility] WBC 2:20 PM CDT Absolute 8.6 (H) 1.6 - 8.3 03/15/2021 CT [facility] Neutrophils 10e3/uL 2:20 PM CDT Absolute 1.5 0.8 - 5.3 03/15/2021 CT [facility] Lymphocytes 10e3/uL 2:20 PM CDT Absolute 0.8 0.0 - 1.3 03/15/2021 CT [facility] Monocytes 10e3/uL 2:20 PM CDT Absolute 0.2 0.0 - 0.7 03/15/2021 CT [facility] Eosinophils 10e3/uL 2:20 PM CDT Absolute 0.1 0.0 - 0.2 03/15/2021 CT [facility] Basophils 10e3/uL 2:20 PM CDT Absolute 0.1 (H) <=0.0 03/15/2021 CT [facility] Immature 10e3/uL 2:20 PM CDT Granulocytes Absolute NRBCs 0.0 10e3/uL 03/15/2021 CT [facility] 2:20 PM CDT Specimen Anatomical Collection Method / Collection Time Recei shakeel Time (Source) Location / Volume Laterality Blood VENOUS LINE / Venipuncture / 03/15/2021 2:05 2:10 Unknown Unknown PM CDT PM CDT Arnaldo Gutierrez MD LAB - BLOOD ORDERABLES Performing Organization Address City/[facility]/[place] [address] [phone] Acute Care Lab [address] [place] [address], [facility] [phone] Acute Care Lab [address] Extra Purple Top Tube (03/15/2021 2:05 PM CDT) athologist Signature Hold Specimen [facility] 03/15/2021 CT LABORATORY 3:18 PM CDT Specimen Anatomical Collection Method / Collection Time Recei shakeel Time (Source) Location / Volume Laterality Blood VENOUS LINE / Venipuncture / 03/15/2021 2:05 1 2:10 Unknown Unknown PM CDT PM CDT Arnaldo Gutierrez MD LAB - BLOOD ORDERABLES Performing Organization Address City/[facility]/[place] [address] [phone] Acute Care Lab [address] [place] [address], [facility] [phone] Acute Care Lab [address] Extra Green Top (Happy Heparin) Tube (03/15/2021 2:05 PM CDT) athologist Signature Hold Specimen [facility] 03/15/2021 CT LAB[facility]ATORY 3:18 PM CDT Specimen Anatomical Collection Method / Collection Time Recei shakeel Time (Source) Location / Volume Laterality Blood VENOUS LINE / Venipuncture / 03/15/2021 2:05 1 2:10 Unknown Unknown PM CDT PM CDT Arnaldo Gutierrez MD LAB - BLOOD ORDERABLES Performing Organization Address City/[facility]/[place] [address] Acute Care Lab [address] [place] [address], [facility] [phone] Acute Care Lab [address] Extra Green Top (Happy Heparin) Tube (03/15/2021 2:05 PM CDT) athologist Signature Hold Specimen JI 03/15/2021 CT LAB[facility]AT[facility] 3:18 PM CDT Specimen Anatomical Collection Method / Collection Time Recei shakeel Time (Source) Location / Volume Laterality Blood VENOUS LINE / Venipuncture / 03/15/2021 2:05 1 2:10 Unknown Unknown PM CDT PM CDT Arnaldo Gutierrez MD LAB - BLOOD ORDERABLES Performing Organization Address City/[facility]/ZIP [facility] [place] [place] [address] [phone] Acute Care Lab [address] [place] [address]. Room # [address] [place] [address], [facility] [phone] Acute Care Lab [address] [place] [address]. Room # 2186 Extra Red Top Tube (03/15/2021 2:05 PM CDT) athologist Signature Hold Specimen [facility] 03/15/2021 CT LABORATORY 3:18 PM CDT Specimen Anatomical Collection Method / Collection Time Recei shakeel Time (Source) Location / Volume Laterality Blood VENOUS LINE / Venipuncture / 03/15/2021 2:05 1 2:10 Unknown Unknown PM CDT PM CDT Arnaldo Gutierrez MD LAB - BLOOD ORDERABLES Performing Organization Address City/[facility]/[place] [address] Acute Care Lab [address] [place] [address]. Room [address] [place] [address], [facility] [phone] Acute Care Lab [address] [place] [address]. Room # 2186 Extra Blue Top Tube (03/15/2021 2:05 PM CDT) athologist Signature Hold Specimen JI 03/15/2021 CT LAB[facility] 3:18 PM CDT Specimen Anatomical Collection Method / Collection Time Recei shakeel Time (Source) Location / Volume Laterality Blood VENOUS LINE / Venipuncture / 03/15/2021 2:05 1 2:10 Unknown Unknown PM CDT PM CDT Arnaldo Gutierrez MD LAB - BLOOD ORDERABLES Performing Organization Address City/[facility] [place] [address] Acute Care Lab [address] [place] [address]. Room # [address] [place] [address], [facility] [phone] Acute Care Lab [address] [place] [address]. Room # 2186 Nt probnp inpatient (BNP) (03/15/2021 2:05 PM CDT) athologist Signature N terminal Pro 19 0 - 450 03/15/2021 CT [facility] BNP Inpatient pg/mL 2:36 PM CDT [...] LAB - BLOOD ORDERABLES Performing Organization Address City/[facility]/[place] [address] Acute Care Lab [address] [place] [address]. Room # 2[address] [place] [address], [facility] [phone] Acute Care Lab [address] [place] [address]. Room # 2186 Troponin I (03/15/2021 2:05 PM CDT) athologist Signature Troponin I <0.015 0.000 - 03/15/2021 CT [facility] 0.045 ug/L 2:36 PM CDT Comment: [...] LAB - BLOOD ORDERABLES Performing Organization Address [facility]/ZIP [facility] [place] [address] Acute Care Lab [address] [place] [address]. Room [address] [place] [address], [facility] [phone] Acute Care Lab [address] [place] [address]. Room # 2186 Lipase (03/15/2021 2:05 PM CDT) athologist Signature Lipase 132 73 - 393 U/L 03/15/2021 CT LAB[facility] 2:27 PM CDT Specimen Anatomical Collection Method / Collection Time Recei shakeel Time (Source) Location / Volume Laterality Blood VENOUS LINE / Venipuncture / 03/15/2021 2:05 1 2:10 Unknown Unknown PM CDT PM CDT Arnaldo Gutierrez MD LAB - BLOOD ORDERABLES Performing Organization Address [facility]/[place] [address] Acute Care Lab [address] [place] [address]. Room [address] [place] [address], [facility] [phone] Acute Care Lab [address] [place] [address]. Room # 2186 Comprehensive metabolic panel (03/15/2021 2:05 PM CDT) P athologist Signature Sodium 137 133 - 144 03/15/2021 CT [facility] mmol/L 2:33 PM CDT Potassium 3.8 3.4 - 5.3 03/15/2021 CT [facility] mmol/L 2:33 PM CDT Chloride 107 94 - 109 03/15/2021 CT [facility] mmol/L 2:33 PM CDT Carbon Dioxide 25 20 - 32 03/15/2021 CT [facility] (CO2) mmol/L 2:33 PM CDT Anion Gap 5 3 - 14 03/15/2021 CT [facility] mmol/L 2:33 PM CDT Urea Nitrogen 9 7 - 30 03/15/2021 CT [facility]ORY mg/dL 2:33 PM CDT Creatinine 0.79 0.66 - 03/15/2021 CT [facility] 1.25 mg/dL 2:33 PM CDT Calcium 9.1 8.5 - 10.1 03/15/2021 CT [facility] mg/dL 2:33 PM CDT Glucose 90 70 - 99 03/15/2021 CT [facility] mg/dL 2:33 PM CDT Alkaline 103 40 - 150 03/15/2021 CT [facility] Phosphatase U/L 2:33 PM CDT AST 19 0 - 45 U/L 03/15/2021 CT [facility] 2:33 PM CDT ALT 34 0 - 70 U/L 03/15/2021 CT [facility] 2:33 PM CDT Protein Total 7.6 6.8 - 8.8 03/15/2021 CT LAB[facility]ORY g/dL 2:33 PM CDT Albumin 3.9 3.4 - 5.0 03/15/2021 CT LAB[facility]ORY g/dL 2:33 PM CDT Bilirubin Total 0.2 0.2 - 1.3 03/15/2021 CT LAB[facility]ORY mg/dL 2:33 PM CDT GFR Estimate >90 >60 03/15/2021 CT LABORATORY mL/min/1.7 2:33 PM CDT 3m2 Comment: [...] Organization Address City/State/[place] [address] Acute Care Lab [address] [place] [address]. Room # [address] [place] [address], [facility] [phone] Acute Care Lab [address] [place] [address]. Room # 2186 D dimer quantitative (03/15/2021 2:05 PM CDT) Analysis Performed At Patho logist Time Signature D-Dimer 0.27 0.00 - 03/15/2021 CT [facility] Quantitative 0.50 ug/mL 2:23 PM CDT FEU Specimen Anatomical Collection Method / Collection Time Recei shakeel Time (Source) Location / Volume Laterality Blood VENOUS LINE / Venipuncture / 03/15/2021 2:05 2:10 Unknown Unknown PM CDT PM CDT Narrative CT [facility] - 03/15/2021 2:23 PM CDT This D-dimer assay is intended for use i n conjunction with a clinical pretest probability assessment model to exclude pulmonary embolism (PE) and deep venous thrombosis (DVT) in outpatients suspecte d of PE or DVT. The cut-off value is 0.50 ug/mL FEU. Arnaldo Gutierrez MD LAB - BLOOD ORDERABLES Performing Organization Address City/State/[place] [address] [phone] Acute Care Lab [address] [place] [address]. Room # 2[address] [place] [address], [facility] [phone] Acute Care Lab [address] [place] [address]. Room # 2186 EKG 12-lead, tracing only [...] (COMPLETED) 1406 (Given - Provider: Gayle Ivan, JUVEANL) 64.8 mg, Oral, ONCE, On Sat03/15/21 at 1350, For 1 dose documented in this encounter Care Teams Forging Machine Operator Relationship Specialty Start Date End Date No Ref-Primary, Physician PCP - General 03/15/21 documented as of this encounter
--- OUTSIDE RECORDS SUMMARY | 2022-03-02 17:27 | XMS_ITS | Encounter Summary ---
:1990 Author Organization [facility] Address [facility] [place] [address] Care Team Providers Name Role Phone Unavailable Primary Care Provider Unavailable Encounter Details Date Type Department Care Team Description 01/02/2016 Telephone [facility] Nurse Destiny Salas , RN [employer] [address] (acquired by [employer]) [place] [address] Social History Tobacco Use Types Packs/Day Years Used Date Never Assessed Sex Assigned at Date Recorded Not on file documented as of this encounter Miscellaneous Notes Telephone Encounter - Destiny Salas RN - 01/02/2016 5:33 PM CDT Call Type: Triage Call Presenting Problem: Patient called stating that he had been in the [place] [facility] room last evening for a panic attack. He is requesting two tablets of Ativan to get him through so he can go in for a clinic appointment tomorrow. Dr. Damon was substation operator automatic and okayed two tablets, and states that the patient needs to go to see him tomorrow at the [facility] [place]. Patient was advised and he will call the clinic in the morning to get an appointment time. The Ativan was called to the [facility] in [place]. Triage Note: Guideline Title: Medication Questions - [...]
--- OUTSIDE RECORDS SUMMARY | 2022-03-02 17:27 | XMS_ITS | Encounter Summary ---
:1990 Author Organization [facility] Address [address] [place] [address] Care Team Providers Name Role Phone Elsewhere, Pcp Primary Care Provider Unavailable Reason for Visit Reason Comments Results Encounter Details Date Type Department Care Team Description 07/07/2021 Clinical Department of Marina, Results Communication Cardiovascular Rodrigo Arias, Medicine in [place], Karley, Ph. D. [address] [place] [address] [phone] Social History Tobacco Use Types Packs/Day Years [...] How often do you attend quaker or jainism services? 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 - 07/07/2021 5:[address] Donald said he would call Mr. Rainey to discuss further. SUPERVISOR Telephone Encounter - Sameera Luong - 07/07/2021 3:56 PM CST SUBJECTIVE CHIEF COMPLAINT / REASON FOR CALL Results Name of caller: Luisito Rainey (patient) Patient expects communication via portal: No Phone number: [phone] Test Results Goal or summary: Mr. Rainey [...] case. He would appreciate a callback YASSINE SUPERVISOR documented in this encounter Plan of Treatment Not on filedocumented as of this encounter Visit Diagnoses Not on filedocumented in this encounter Additional Health Concerns Assessment Noted Time PHQ-9 Depression Total Score: 11 09/09/2015 4:10 PM CD T documented as of this encounter Care Teams Senior Design Engineering Specialist Relationship Specialty Start Date End Date Elsewhere, Pcp PCP - General Internal Medicine 07/04/21 documented as of this encounter
--- OUTSIDE RECORDS SUMMARY | 2022-03-02 17:28 | XMS_ITS | Encounter Summary ---
:1990 Author Organization [facility] Address [address] [place] [address] Care Team Providers Name Role Phone Elsewhere, Pcp Primary Care Provider Unavailable Reason for Visit Reason Comments Remote Patient Monitoring Disconnected Monitor Encounter Details Date Type Department Care Team Description 06/12/2021 Clinical Department of Marina, Remote Patient Communication Cardiovascular [place] in [place], Ph.D. (Disconnected [place], [place] [address] [facility] Monitor) [address] [place] [address] [phone] Social History Tobacco Use Types Packs/Day Years [...] How often do you attend tenriism or amish services? Never 07/18/2021 Do you belong to [...] at Date Recorded Male 06/01/2020 11:57 AM BOBBIN STRIPPER documented as of this encounter Miscellaneous Notes [...] to this notification or call us at [phone] ([phone]) IN STRIPPER documented in this encounter Plan of Treatment Not on filedocumented as of this encounter Visit Diagnoses Not on filedocumented in this encounter Additional Health Concerns Infection Onset Date Last Indicated Resolved Time COVID19 Pending 07/06/2021 07/06/2021 07/06/2021 5:05 PM BOBBIN STRIPPER Assessment Noted Time PHQ-9 Depression Total Score: 11 09/09/2015 4:10 PM CD T documented as of this encounter Care Teams Therapist'S Assistant Relationship Specialty Start Date End Date Elsewhere, Pcp PCP - General Internal Medicine 07/04/21 documented as of this encounter
--- OUTSIDE RECORDS SUMMARY | 2022-03-02 17:28 | XMS_ITS | Encounter Summary ---
:1990 Author Organization [facility] Address [address] [place] [address] Care Team Providers Name Role Phone Elsewhere, Pcp Primary Care Provider Unavailable Encounter Details Date Type Department Care Team Description 07/04/2021 Clinical Communication Department of Nakul Tsang Cardiovascular Medicine Kilo Johnson in [facility] [phone] [address] [facility] (Work) [place] [address] Social History Tobacco Use Types Packs/Day Years [...] er 07/18/2021 How often do you attend protestant or congregational services? 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 documented as of this encounter Miscellaneous Notes [...] not unreasonable to take a prn dose TRIC SWITCH REPAIRER documented in this encounter Plan of Treatment Not on filedocumented as of this encounter Visit Diagnoses Not on filedocumented in this encounter Additional Health Concerns Infection Onset Date Last Indicated Resolved Time COVID19 Pending 07/06/2021 07/06/2021 07/06/2021 5:05 PM ELECTRIC SWITCH REPAIRER Assessment Noted Time PHQ-9 Depression Total Score: 11 09/09/2015 4:10 PM CD T documented as of this encounter Care Teams Emr Analyst Relationship Specialty Start Date End Date Elsewhere, Pcp PCP - General Internal Medicine 07/04/21 documented as of this encounter
--- OUTSIDE RECORDS SUMMARY | 2022-03-02 17:28 | XMS_ITS | Encounter Summary ---
:1990 Author Organization [facility] Address [address] [place] [address] Care Team Providers Name Role Phone Unavailable Primary Care Provider Unavailable Reason for Visit Reason Comments Baseline Encounter Details Date Type Department Care Team Description 06/14/2021 Clinical Department of [place], Baseline Communication Cardiovascular Rodrigo Arias, Medicine in [place], Nitish., Ph. D. [address] [address] [phone] Social History Tobacco Use Types Packs/Day Years [...] How often do you attend faith or yarsanism services? Never 07/18/2021 Do you [...] at Date Recorded Male 06/01/2020 11:57 AM BILLING DEPARTMENT SUPERVISOR documented as of this encounter Miscellaneous Notes Telephone Encounter - Shakira Cerrato - 06/14/2021 1:48 PM CST Baseline, thanks ING DEPARTMENT SUPERVISOR documented in this encounter Plan of Treatment Not on filedocumented as of this encounter Visit Diagnoses Not on filedocumented in this encounter Additional Health Concerns Assessment Noted Time PHQ-9 Depression Total Score: 11 09/09/2015 4:10 PM CD T documented as of this encounter
--- OUTSIDE RECORDS SUMMARY | 2022-03-02 17:28 | XMS_ITS | Encounter Summary ---
:1990 Author Organization [facility] Address [address] [place] [address] Care Team Providers Name Role Phone Unavailable [...] How often do you attend confucianist or scientologist services? Never 07/18/2021 Do you [...] place to sleep or slept in a fci (including now)? Sex Assigned at Date Recorded Male 06/01/2020 11:57 AM SUPERVISOR GLUING documented as of this encounter Plan of Treatment Not on filedocumented as of this encounter Visit Diagnoses Not on filedocumented in this encounter
--- OUTSIDE RECORDS SUMMARY | 2022-03-02 17:28 | XMS_ITS | Encounter Summary ---
:1990 Author Organization [facility] Address [address] [place] [address] Care Team Providers Name Role Phone Unavailable Primary Care Provider Unavailable Encounter Details Date Type Department Care Team Description 10/05/2020 Orders Only [facility] P[facility] Sa rubina [place] M.D. [address] [place], [place] [phone] (Wo rk) Social History [...] How often do you attend congregation or shinto services? Never 07/18/2021 Do you [...] at Date Recorded Male 06/01/2020 11:57 AM AUDIOLOGY TECHNICIAN documented as of this encounter Plan of Treatment Not on filedocumented as of this encounter Visit Diagnoses Not on filedocumented in this encounter Additional Health Concerns Assessment Noted Time PHQ-9 Depression Total Score: 11 09/09/2015 4:10 PM CD T documented as of this encounter
--- OUTSIDE RECORDS SUMMARY | 2022-03-02 17:28 | XMS_ITS | Encounter Summary ---
:1990 Author Organization [facility] Address [address] [place] [address] Care Team Providers Name Role Phone Unavailable Primary Care Provider Unavailable Reason for Visit Reason Comments Self Referral Communication Encounter Details Date Type Department Care Team Description 04/07/2021 Clinical Department of Supervisor [facility] Self Referral Communication Cardiovascular , Karley Mills (Communicati on) Medicine in [place], [place] [address] [place] [address] Social History Tobacco Use Types Packs/Day Years [...] er 07/18/2021 How often do you attend jain or hindu services? Never 07/18/2021 Do you belong to any clubs or organizations such as jain N o 07/18/2021 groups, unions, fraternal or [...] or slept in a fpc (including now)? Sex Assigned at Date Recorded Male 06/01/2020 11:57 AM QA CONSULTANT documented as of this encounter Miscellaneous Notes Telephone Encounter - Yee Shields - 05/17/2021 4:16 PM QA CONSULTANT 05/25 @3 CONSULTANT Telephone Encounter - Anny Jolley - 05/17/2021 11:16 AM CST Good Morning, Pt called to schedule. Requesting Dr. Gray. Updated CE. Can you please let us know the urgency of this request? Thank you, Anny CONSULTANT Telephone Encounter - Lacy Palencia - 04/07/2021 2:46 PM CDT RAFFY PAR will let us know when we are okay to schedule. Telephone Encounter - Winston Mckeon R.N. - 04/07/2021 9:42 AM CDT Images from the original note were not included. [facility]' Nurse Chart Review: INDICATION: [...] Completed Testing: ??? ECG from 03/02/2021: ??? Holter/Water Pump Servicer from 11/13/2020: ??? CXR from 02/19/21: ??? [...] Intervals Study State Underlying Rhythm Cycle Length AR PA AH HV QRS Elwin QRS Morphology Baseline NSR 781 161 ?? [...] See Anesthesia Note Total Flouro Time: 0 SPOOL WORKER Total Flouro Dose: 0 mGy ??? EP Study 12/13/2020- Consent & Landenberg Protocol Landenberg protocol was followed. ??TIME OUT conducted just [...] Intervals Study State Underlying Rhythm Cycle Length AR PA AH HV QRS [place]win QRS Morphology Baseline NSR 688 129 ?? [...] mg twice daily), but since admission to [facility] recently the beta-terrence therapy will switched to [...] 09:51 AM To: Rst Cvd Osm Hrs ([place]) Priority: Routine Routing Comments: ??Have they had [...]
--- OUTSIDE RECORDS SUMMARY | 2022-03-02 17:28 | XMS_ITS | Encounter Summary ---
:1990 Author Organization [facility] Address [address] [place] [address] Care Team Providers Name Role Phone Unavailable [...] er 07/18/2021 How often do you attend zoroastrianism or episcopalian services? 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
--- OUTSIDE RECORDS SUMMARY | 2022-03-02 17:28 | XMS_ITS | Encounter Summary ---
:1990 Author Organization [facility] Address [address] [place] [address] Care Team Providers Name Role Phone Unavailable [...] How often do you attend faith or buddhism services? Never 07/18/2021 Do you belong to [...] or slept in a half-way (including now)? 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
--- OUTSIDE RECORDS SUMMARY | 2022-03-02 17:28 | XMS_ITS | Encounter Summary ---
:1990 Author Organization [facility] Address [address] [place] [address] Care Team Providers Name Role Phone Unavailable Primary Care Provider Unavailable Reason for Visit Outpatient (Routine) - Canceled Specialty Diagnoses / Procedures Referred By Contact Refer red To Contact Diagnoses Tachycardia Supraventricular (HCC) Rodrigo Gray V., [facility] Procedures ECG Event Recorder Karley, Ph.D. [address] [place] [address] Referral ID Status Reason Start Date Expiration Date Visits V isits Requested Authorized [id number] Canceled 05/25/2021 05/25/2022 1 1 Encounter Details Date Type Department Care Team Description 05/26/2021 Hospital Division of [place], Tachycardia Encounter Cardiovascular Rodrigo Arias, Supraventr icular (HCC) Diseases in Karley, Ph.D. [place], [place] [address] [facility] [address] [place] [address] [phone] Social History Tobacco Use Types Packs/Day Years [...] er 07/18/2021 How often do you attend uatsdin or lutheran services? 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 syringe LORazepam (ATIVAN) 1 Take 1 tablet by mouth 0 mg tablet as needed. melatonin 10 mg Take 10 mg by mouth at 0 03/01/20 21 tablet bedtime. yttvxmwacqju-Wt-vecv Take 1 tablet by mouth 0 -minerals [...]
--- OUTSIDE RECORDS SUMMARY | 2022-03-02 17:28 | XMS_ITS | Encounter Summary ---
:1990 Author Organization [facility] Address [address] [place] [address] Care Team Providers Name Role Phone Elsewhere, Pcp Primary Care Provider Unavailable Reason for Visit Reason Comments Rapid Heart Rate Pt called remote monitoring to talk about his elevated HR Encounter Details Date Type Department Care Team Description 07/03/2021 Documentation RST CCM Kaci Colvin Rapid Heart Rate (Pt [address] [facility] AYAKA Borjas, C.N.P., called remote [place], [place] M.S.N. monitoring to talk [phone] about his eleva leeann HR) Social History [...] er 07/18/2021 How often do you attend muslim or congregational services? 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 Upon review of monitor per groundwater monitoring technician his highest rate was 147 today in an SVT. Due to pts concern, I contacted this patient at the following phone number: [phone] He reported that he was awake at [...] his BB. Kaci Colvin APRN, C.N.P., M.S.N. [facility] Pager: [phone] (CVICU CHIEF DIGITAL MEDIA OFFICER) L DECORATOR Rodrigo Donald M.D., Ph.D. - 07/03/2021 9:04 [...] not unreasonable to take a prn dose L DECORATOR documented in this encounter Plan of Treatment Not on filedocumented as of this encounter Visit Diagnoses Not on filedocumented in this encounter Additional Health Concerns Assessment Noted Time PHQ-9 Depression Total Score: 11 09/09/2015 4:10 PM CD T documented as of this encounter Care Teams Machine Captain Relationship Specialty Start Date End Date Elsewhere, Pcp PCP - General Internal Medicine 07/04/21 documented as of this encounter
--- OUTSIDE RECORDS SUMMARY | 2022-03-02 17:28 | XMS_ITS | Encounter Summary ---
:1990 Author Organization [facility] Address [address] [place] [address] Care Team Providers Name Role Phone Elsewhere, Pcp Primary Care Provider Unavailable Reason for Visit Appointment Request (Routine) - Closed Specialty Diagnoses / Procedures Referred By Referred To Contact Contact Cardiovascular Disease Diagnoses Tachycardia Supraventricular (HCC) Referral ID Status Reason Start Date Expiration Date Visits Requ ested Visits Authorized [id number] Closed 05/26/2021 05/26/2022 1 1 Encounter Details Date Type Department Care Team Description 07/06/2021 Office Visit Department of Meseret Kyle Cardiovascular Medicine AYAKA Parker Supr aventricular (HCC) in [facility] blayne OkeefeNJeremieP., M.S.N. (Primary Dx) [address] [place] [address] [address] [place] [phone] Social History Tobacco Use Types Packs/Day Years [...] er 07/18/2021 How often do you attend rastafari or taoist services? 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 documented as of this encounter Last Filed Vital Signs Vital Sign Reading Time Taken Comments Blood Pressure 129/82 07/06/2021 1:55 PM FINANCIAL MANAGEMENT Pulse 127 07/06/2021 1:55 PM FINANCIAL MANAGEMENT Temperature - - Respiratory Rate - - Oxygen Saturation - - Inhaled Oxygen Concentration - - Weight 83 kg (182 lb 15.7 oz) 07/06/2021 1:55 PM FINANCIAL MANAGEMENT Height 172 cm (5' 7.72) 07/06/2021 1:55 PM FINANCIAL MANAGEMENT Body Mass Index 28.06 07/06/2021 1:55 PM FINANCIAL MANAGEMENT documented in this encounter Progress Notes Meseret [...] history is well documented in a prior twr-dteo-fu-face visit with Dr. Donald on 05/25/2021. In [...] He has followed with Dr. Gonzalez at [facility] who has noted no documented SVT to [...] Allergies Allergen Reactions ??? Kiwi Anaphylaxis ??? [place] Anaphylaxis ??? Spencer Flavor Other (see comments) [...] comments) ??? Lemon Other (see comments) ??? Iroquois Other (see comments) ??? Multivitamin With Iron,Other Minerals Other (see comments) COLD SORE REACTION TO VARIOUS/NUMEROUS ??? [place] Other (see comments) ??? [place] Other (see comments) ??? Choline Other (see [...] 10 mg by mouth at bedtime. ??? wpgvsxishums-Wy-ibpz-minerals tablet, Take 1 tablet by mouth as [...] & Screen Expiration 07/09/2021 23:59 Testing Location [place] ASSESSMENT / PLAN #1 Tachycardia Supraventricular (HCC) [...] in for procedurereport time, a map of [facility], the need to have a high lift driver, typical procedure length and recovery time, post procedure activity and driving limitations, and when to hold food and fluids. Mr. Rainey was advised to make the following changes to medications: None. Mr. 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 Meseret Kyle APRN, C.N.P., M.S.N. 07/06/2021 NCIAL MANAGEMENT documented in this encounter Plan of Treatment Not on filedocumented as of this encounter Visit Diagnoses Diagnosis Tachycardia Supraventricular (HCC) - [facility] documented in this encounter Additional Health Concerns Infection Onset Date Last Indicated Resolved Time COVID19 Pending 07/06/2021 07/06/2021 07/06/2021 5:05 PM FINANCIAL MANAGEMENT Assessment Noted Time PHQ-9 Depression Total Score: 11 09/09/2015 4:10 PM CD T documented as of this encounter Care Teams Tailer In Relationship Specialty Start Date End Date Elsewhere, Pcp PCP - General Internal Medicine 07/04/21 documented as of this encounter
--- OUTSIDE RECORDS SUMMARY | 2022-03-02 17:28 | XMS_ITS | Encounter Summary ---
:1990 Author Organization [facility] Address [address] [place] [address] Care Team Providers Name Role Phone Unavailable Primary Care Provider Unavailable Reason for Visit Appointment Request (Routine) - Closed Specialty Diagnoses / Procedures Referred By Referred To Contact Contact Cardiovascular Disease Diagnoses Tachycardia Supraventricular (HCC) Referral ID Status Reason Start Date Expiration Date Visits Requ ested Visits Authorized [id number] Closed 04/03/2021 04/03/2022 1 1 Encounter Details Date Type Department Care Team Description 05/25/2021 Virtual Visit Department of [place], Tachycardia Cardiovascular Rodrigo Arias, Supraventr icular ([facility]) Medicine in M.D., Ph.D. (Primary Dx) [place], [place] [address] [facility] [address] [place] [address] [phone] Social History Tobacco Use Types Packs/Day Years [...] How often do you attend quaker or religion services? Never 07/18/2021 Do you belong to [...] place to sleep or slept in a snf (including now)? Education Answer Date Recorded What is the highest level of school you have GED or equivale nt 05/20/2021 completed or the highest degree you have received? 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 - 05/25/2021 3:00 PM CST SUBJECTIVE REASON FOR CONSULT SVT. HISTORY OF PRESENT ILLNESS This is a pqy-rnza-ag-face visit done in the setting [place] [address] according to [facility] institutional guidelines. This was done via telephone [...] palpitations. He has been treated up in [place] with Corlanor as well as 75 mg [...] Donald M.D., Ph.D. CT CT Job ID: [id number] RNIST documented in this encounter Plan of Treatment Not on filedocumented as of this encounter Visit Diagnoses Diagnosis Tachycardia Supraventricular (HCC) - [facility] documented in this encounter Additional Health Concerns Assessment Noted Time PHQ-9 Depression Total Score: 11 09/09/2015 4:10 PM CD T documented as of this encounter
--- OUTSIDE RECORDS SUMMARY | 2022-03-02 17:28 | XMS_ITS | Encounter Summary ---
:[address] [facility] Address [address] [place] [address] Care Team Providers Name Role Phone Unavailable Primary Care Provider Unavailable Reason for Visit Reason Comments Appointment medication questions pre pro cedure Encounter Details Date Type Department Care Team Description 06/20/2021 Clinical Department of Security Patrol Officer Appointment Communication Cardiovascular , Karley Mills (medication Medicine in [facility] pre [place] procedure) [address] [place] [address] Social History Tobacco Use Types Packs/Day Years [...] er 07/18/2021 How often do you attend zoroastrian or anabaptism services? Never 07/18/2021 Do you belong to any clubs or organizations such as zoroastrian N o 07/18/2021 groups, unions, fraternal or [...] place to sleep or slept in a fdc (including now)? Education Answer Date Recorded What is the highest level of school you have GED or equivale nt 05/20/2021 completed or the highest degree you have received? 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 - 06/22/2021 8:41 AM TRAM INSPECTOR INFORMATION DISCUSSED Called Mr Rainey to let [...] following references were used: nursing clinical judgement INSPECTOR Telephone Encounter - Alba Valdez R.N. - 06/21/2021 2:39 PM TRAM INSPECTOR SUBJECTIVE Patient would like to know if [...] expects communication via portal: No Phone number: [phone] Request topic and what needs to be addressed? Medication Management ?? Goal or summary: stop or continue taking Corlanor ?? Medication/dose: Corlanor? ?? Additional comments: wanting recommendations. INSPECTOR Telephone Encounter - Princess Macias M.S.N. R.N. - 06/21/2021 11:14 AM TRAM INSPECTOR Rodrigo Donald M.D., Ph.D. You 17 hours [...] following references were used: provider Dr. Donald INSPECTOR Telephone Encounter - Yee Shields - 06/20/2021 4:58 PM TRAM INSPECTOR SUBJECTIVE CHIEF COMPLAINT / REASON FOR CALL [...] Appointment Services Specialist Division of Cardiovascular Diseases [address] [address] [email or web address] P RST CVD DEVICE SCHEDULING P RST CVD HRS SCHEDULING INSPECTOR documented in this encounter Plan of Treatment Not on filedocumented as of this encounter Visit Diagnoses Not on filedocumented in this encounter Additional Health Concerns Assessment Noted Time PHQ-9 Depression Total Score: 11 09/09/2015 4:10 PM CD T documented as of this encounter
--- OUTSIDE RECORDS SUMMARY | 2022-03-02 17:28 | XMS_ITS | Encounter Summary ---
:1990 Author Organization [facility] Address [address] [place] [address] Care Team Providers Name Role Phone Unavailable Primary Care Provider Unavailable Reason for Visit Reason Comments Medication Question Encounter Details Date Type Department Care Team Description 06/14/2021 Clinical Department of [place], Medication Communication Cardiovascular Rodrigo Arias, Question Medicine in M.D., Ph.D. [address] [place] [address] [phone] Social History Tobacco Use Types Packs/Day Years [...] How often do you attend zoroastrianism or rastafarian services? 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 - 06/14/2021 3:31 PM CST [...] he has any further questions or concerns. DIGGER TRUCK DRIVER Telephone Encounter - Sameera Luong - 06/14/2021 3:04 PM CST SUBJECTIVE CHIEF COMPLAINT / REASON FOR CALL Medication Question Name of caller: Mr. Luisito Rainey (patient) Patient expects communication via portal: No Phone number: [phone] (he may be at work and unable [...] any change is needed for his Corlanor DIGGER TRUCK DRIVER documented in this encounter Plan of Treatment Not on filedocumented as of this encounter Visit Diagnoses Not on filedocumented in this encounter Additional Health Concerns Assessment Noted Time PHQ-9 Depression Total Score: 11 09/09/2015 4:10 PM CD T documented as of this encounter
--- OUTSIDE RECORDS SUMMARY | 2022-03-02 17:28 | XMS_ITS | Encounter Summary ---
:1990 Author Organization [facility] Address [address] [place] [address] Care Team Providers Name Role Phone Unavailable [...] How often do you attend confucianism or voodoo services? 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
--- OUTSIDE RECORDS SUMMARY | 2022-03-02 17:28 | XMS_ITS | Encounter Summary ---
:1990 Author Organization [facility] Address [address] [place] [id number] Care Team Providers Name Role Phone Elsewhere, Pcp Primary Care Provider Unavailable Reason for Referral Outpatient (Routine) - Closed Specialty Diagnoses / Procedures Referred By Contact Refer red To Contact Diagnoses Tachycardia Supraventricular (HCC) [facility] Procedures Echo Transthoracic (TTE) Karley, Ph.D. [address] [place] [phone] Referral ID Status Reason Start Date Expiration Date Visits Requ ested Visits Authorized [id number] Closed 05/26/2021 05/26/2022 1 1 utpatient (Routine) - Closed Specialty Diagnoses / Procedures Referred By Contact Refer red To Contact Diagnoses Tachycardia Supraventricular (HCC) Rodrigo [facility] Procedures ECG 12 Lead Karley, Ph.D. [address] [place] [phone] Referral ID Status Reason Start Date Expiration Date Visits Requ ested Visits Authorized [id number] Closed 05/26/2021 05/26/2022 1 1 NG MACHINE FEEDER Encounter Details Date Type Department Care Team Description 05/26/2021 Clinical Communication Department of Lorin Rodriguez Cardiovascular Medicine A, [place] in [facility] [address] [facility] [address] [place] [phone] Social History Tobacco Use Types Packs/Day Years [...] often do you attend latter day or anglican services? 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 NG MACHINE FEEDER Telephone Encounter - Jessica Mcgarry - 07/06/2021 7:43 AM CST Forms have been received and emailed to [place] for completion. NG MACHINE FEEDER Telephone Encounter - Sachin Ghosh R.N. - [...] following references were used: nursing clinical judgement NG MACHINE FEEDER Telephone Encounter - Shakira Cerrato - 06/14/2021 1:50 PM CST This is scheduled, PAG Mailed. Robert Rosenberg NG MACHINE FEEDER Telephone Encounter - Lorin Rodriguez R.N. - 05/26/2021 12:28 PM MIXING MACHINE FEEDER Contacted Luisito TJeremie Rainey regarding the scheduling for their EPS +/- AVNRT ablation. Mr. Rainey was referred by Dr. Gray for this procedure. Had virtual visit with Dr. Gray 05/25/2021- [id number] score of 0 Pre-procedure Appointment: 07/06/2021- COVID testing before noon and rest of testing after COVDI testing- will need FTF visit with T[employer] CREW CHIEF as well. Pre-Procedure Testing Ordered: labs including Type and screen, CXR , Echo and COVID tesitng Pre-Procedure Testing Completed:labs 03/19/2021 GFR >560,TSH 1.62 02/19/2021 Case Urgency:elective-SDD current orders active in EMR Procedure Date: 07/07/2021 Procedure: EPS +/- AVNRT redo with Dr. Gray Calling In for your Report Time: The night before the procedure, please call the [facility] Service Line ([phone]) or the [facility] Backup Line ([phone]) between 7pm and midnight to find out what time to arrive. This automated phone line will have you type in your [facility] Number (#) and birthdate () to determine your arrival time. On the day of your procedure: Check into [facility], [facility] 4th Floor (east elevators) at the [facility] 4D desk. Youdo not need [...] to either live within 100 miles of [place], [place] or spend the night in [place], [place] postprocedure. If you live within 100 miles and live greater than 30 minutes outside of [place], [place]); it is highly recommended that you spend the night in [place], [place]. ??? If you experience any complications or have questions post procedure overnight, please call the [facility] Tuber Machine Cutter at: [phone] and ask for [employer]. Theywill connect you to the on-call provider to assist you further. ??? You will receive sedation for your procedure, so an adult flatbed truck driver and supervision is required for24 hours [...] free to reach out to us at [phone]. ??? If you have any concerns or questions regarding your schedule, please contact the scheduling team at [phone]. ??? If you have any concerns or questions about your insurance or procedure coverage please contact our business office at [phone]. COVID Screening Questions: 1. Do you, anyone [...] vaccinated with booster Testing Information: ?? Location: [facility] in the [facility]. ?? If your Covid nasal swab is positive, we will contact you to reschedule your procedure. ?? If your Covid tests are not resulted in time for your procedure, expect your procedure to be postponed or rescheduled to a later date. [facility] Specific Instructions: ?? We encourage you to check [email or web address] for more information as these instructions may change before your procedural date. ?? Must wear a mask at ALL times while on [facility] [place] (except for when eating or showering). ?? [...] facility. Please notify your care teams at [facility] if you develop COVID like symptoms prior to your appointments or procedures as your appointment or procedure may need to be modified. The patient verbalized understanding and agreement with instructions. All questions were answered. NG MACHINE FEEDER documented in this encounter Plan of Treatment Not on filedocumented as of this encounter Results ECG 12 Lead (07/06/2021 11:26 AM MIXING MACHINE FEEDER) P athologist Signature Ventricular Rate 86 BPM MUSE ECG/Min [place] Interval 136 ms MUSE QRSD Interval 86 ms MUSE QT Interval 342 ms MUSE QTC Interval 409 ms MUSE P [place] 41 degrees MUSE R [place] 3 degrees MUSE T Wave [place] 34 degrees MUSE Specimen Anatomical Collection Method Collection Time Receive d Time (Source) Location / / Volume Laterality 07/06/2021 11:26 07/06/2021 AM MIXING MACHINE FEEDER 11:29 AM MIXING MACHINE FEEDER Impressions MUSE - 07/06/2021 11:29 AM MIXING MACHINE FEEDER Normal sinus rhythm Normal ECG When compared [...] (with reflex Antibody ID) (07/06/2021 11:10 AM MIXING MACHINE FEEDER) [facility] Method Time Signature ABORh A Pos Not 07/06/2021 ETRM applicable 12:04 PM MIXING MACHINE FEEDER Antibody Negative Negative 07/06/2021 ETRM Screen 12:15 PM MIXING MACHINE FEEDER Type & Screen 07/09/2021 07/06/2021 ETRM Expiration 23:59 12:04 PM MIXING MACHINE FEEDER Testing [place] DEFAULT 07/06/2021 ETRM Location 11:28 AM MIXING MACHINE FEEDER Specimen Anatomical Collection Method Collection Time Receive d Time (Source) Location / / Volume Laterality Blood (Blood, 07/06/2021 11:10 07/06/2021 Venous) AM MIXING MACHINE FEEDER 11:28 AM MIXING MACHINE FEEDER Rodrigo Gray M.D., Ph.D. LAB BLOOD BANK ANGELLA T ORDERABLES Performing Organization Address City/State/ZIP Code Phon e Number [facility] - [address] [place], [place] [address] [facility] [place] [address] [facility] [address] (ABNORMAL) CBC without Differential (07/06/2021 11:10 AM MIXING MACHINE FEEDER) [facility] gist Method Time Signature Hemoglobin 16.2 13.2 - 07/06/2021 DTL 16.6 g/dL 11:53 AM MIXING MACHINE FEEDER Hematocrit 48.5 38.3 - 07/06/2021 DTL 48.6 % 11:53 AM MIXING MACHINE FEEDER Erythrocytes 5.49 4.35 - 07/06/2021 DTL 5.65 11:53 AM MIXING MACHINE FEEDER x10(12)/L MCV 88.3 78.2 - 07/06/2021 DTL 97.9 fL 11:53 AM MIXING MACHINE FEEDER RBC Distrib Width 12.1 11.8 - 07/06/2021 DTL 14.5 % 11:53 AM MIXING MACHINE FEEDER Platelet Count 236 135 - 317 07/06/2021 DTL x10(9)/L 11:53 AM MIXING MACHINE FEEDER Leukocytes 9.9 (H) 3.4 - 9.6 07/06/2021 DTL x10(9)/L 11:53 AM MIXING MACHINE FEEDER Specimen Anatomical Collection Method Collection Time Receive d Time (Source) Location / / Volume Laterality Blood (Blood, 07/06/2021 11:10 07/06/2021 Venous) AM MIXING MACHINE FEEDER 11:45 AM MIXING MACHINE FEEDER Rodrigo Gray M.D., Ph.D. LAB BLOOD ADD-ON Performing Organization Address City/State/ZIP Code Phon e Number [facility] - [address] [place], [place] [address] [facility] [place] [address] [facility] 200 [facility] Basic Metabolic Panel (07/06/2021 11:09 AM MIXING MACHINE FEEDER) P athologist Signature Potassium, S 4.7 3.6 - 5.2 07/06/2021 DTL mmol/L 12:20 PM MIXING MACHINE FEEDER Sodium, S 143 135 - 145 07/06/2021 DTL mmol/L 12:20 PM MIXING MACHINE FEEDER Chloride, S 103 98 - 107 07/06/2021 DTL mmol/L 12:20 PM MIXING MACHINE FEEDER Bicarbonate, S 28 22 - 29 07/06/2021 DTL mmol/L 12:20 PM MIXING MACHINE FEEDER Anion Gap 12 7 - 15 07/06/2021 DTL 12:20 PM MIXING MACHINE FEEDER BUN (Blood Urea 8 8 - 24 07/06/2021 DTL Nitrogen), S mg/dL 12:20 PM MIXING MACHINE FEEDER Creatinine 0.98 0.74 - 07/06/2021 DTL 1.35 mg/dL 12:20 PM MIXING MACHINE FEEDER eGFR-Non >90 >=60 07/06/2021 DTL Black/ mL/min/BSA 12:20 PM MIXING MACHINE FEEDER Trin[place] Comment: ----ADDITIONAL INFORMATION---- Estimated GFR calculated using the 2009 CKD_EPI creatinine equation. eGFR-Black/ >90 >=60 mL/min/BSA 2021 12:20 PM MIXING MACHINE FEEDER DTL Comment: ----ADDITIONAL INFORMATION---- Estimated GFR calculated using the 2009 CKD_EPI creatinine equation. Calcium, Total, S 9.7 8.6 - 10.0 mg/dL 07/06/2021 12:2 0 PM MIXING MACHINE FEEDER DTL Glucose, S 99 70 - 140 mg/dL 07/06/2021 12:20 PM MIXING MACHINE FEEDER DTL Specimen Anatomical Collection Method Collection Time Receive d Time (Source) Location / / Volume Laterality Blood (Blood, 07/06/2021 11:09 07/06/2021 Venous) AM MIXING MACHINE FEEDER 11:56 AM MIXING MACHINE FEEDER Rodrigo Gray M.D., Ph.D. LAB BLOOD ADD-ON Performing Organization Address City/State/ZIP Code Phon e Number [facility] - [address] [place], [place] [address] [facility] [place] [address] [facility] [address] DX Chest AP or PA and Lateral 2 Views (07/06/2021 10:50 AM MIXING MACHINE FEEDER) Anatomical Region Laterality Modality Chest, Thoracic RST LOS, Thoracic ARZ LOS, Thoracic N/A Digital Radiography FLA LOS Specimen (Source) Anatomical Collection Method Collection Time Re ceived Time Location / / Volume Laterality 07/06/2021 10:52 AM MIXING MACHINE FEEDER Impressions 07/06/2021 11:36 AM MIXING MACHINE FEEDER No change since 02/19/2021. Negative [facility] ?? Narrative 07/06/2021 11:36 AM MIXING MACHINE FEEDER EXAM: ??DX CHEST AP OR PA AND LATERAL 2 VIEWS Procedure Note Gato Conway M.D. - 07/06/2021Formatt ing of this note might be different from the original. EXAM: DX CHEST AP OR PA AND LATERAL 2 EWS IMPRESSION: No change since 02/19/2021. Negative [facility] Rodrigo Gray M.D., Ph.D. IMG DIAGNOSTIC SANDHYA GING PROCEDURES SARS CoV-2 RNA, PCR, Varies Asymptomatic (07/06/2021 10:42 AM MIXING MACHINE FEEDER) [facility] Method Time Signature SARS CoV-2 Swab, 07/06/2021 DTL RNA, PCR, Nasopharynx 5:04 PM MIXING MACHINE FEEDER Source SARS CoV-2 Undetected Undetected 07/06/2021 DTL RNA, PCR 5:04 PM MIXING MACHINE FEEDER Comment: SARS-CoV-2 RNA absent. This result does [...] Drug Administration an d is used per secure software assessor's instructions. Performance characteristics were verified by [facility] in a manner consistent with CLIA requirements. Visit the CDC website: https://www.cdc.g ov/coronavirus/ for the most recent guidelines on Coron avirus testing. Fact Sheet for Healthcare Providers: https://www.fda.gov/media/023115/downloa d Fact Sheet for Patients: https://www.fda.gov/media/047996/downloa d Specimen Anatomical Collection Method Collection Time Receive d Time (Source) Location / / Volume Laterality Varies 07/06/2021 10:42 07/06/2021 (Nasopharynx) AM MIXING MACHINE FEEDER 11:47 AM MIXING MACHINE FEEDER Rodrigo Gray M.D., Ph.D. LAB MICROBIOLOGY - GENERAL ORDERABLES Performing Organization Address City/State/ZIP Code Phon e Number [facility] - [address] [place], [place] [address] [facility] [place] [address] [facility] [address] (TTE) 2D ECHO DOPPLER COLOR (07/06/2021 8:49 AM MIXING MACHINE FEEDER) [facility] Method Time Signature Ejection Fraction 55 MC [...] / / Volume Laterality 07/06/2021 7:40 AM MIXING MACHINE FEEDER Impressions 07/06/2021 2:57 PM MIXING MACHINE FEEDER LEFT VENTRICLE:Normal left ventricular chamber size. Normal [...] For the complete report, see the Order-L [employer] Documents. Narrative 07/06/2021 2:57 PM MIXING MACHINE FEEDER For the complete report, see the Order-Level [...] original. For the complete report, see the [employer] Documents. Final Impressions 1. Normal left ventricular [...] COVID19 Pending 07/06/2021 07/06/2021 07/06/2021 5:05 PM MIXING MACHINE FEEDER Assessment Noted Time PHQ-9 Depression Total Score: 11 09/09/2015 4:10 PM CD T documented as of this encounter Care Teams Bread Pan Greaser Relationship Specialty Start Date End Date Elsewhere, Pcp PCP - General Internal Medicine 07/04/21 documented as of this encounter
--- NOTE | 2022-03-02 18:12 | ED_ITS ---
HPI - General Adult General Chief complaint: Extremity Pain/Injury, Upper Stated complaint: Left hand injury yesterday Time Seen by Provider: 03/02/22 16:52 Source: patient Mode of arrival: ambulatory Limitations: no limitations History of Present Illness HPI narrative: 31-year-old male coming in today complaining hand pain. States he was at work yesterday hammering something when the hammer slipped and he hammer his hand. Hand is swollen erythematous and tingly. Denies other injury. Pain is located on the dorsal surface of the hand right in the center. Related Data Home Medications Medication Instructions Recorded Confirmed metoprolol tartrate 25 mg tablet 25 mg PO QDAY 01/04/22 01/09/22 Previous Rx's Medication Instructions Recorded diltiazem HCl 120 mg 120 mg PO BID #180 caps 12/07/21 capsule,extended release 12 hr gabapentin 300 mg capsule 300 - 900 mg PO BID #180 caps 12/07/21 sertraline 100 mg tablet 100 mg PO DAILY #90 tabs 12/07/21 lorazepam 0.5 mg tablet 0.5 mg PO QDAY PRN benzo 01/09/22 withdrawal #5 tabs gabapentin 300 mg capsule 300 mg PO BID #60 caps 02/07/22 gabapentin 600 mg tablet 600 mg PO BID #60 tabs 02/07/22 Allergies Allergy/AdvReac Type Severity Reaction Status Date / Time rosalva Allergy Severe Throat Verified 01/09/22 14:22 closes up pineapple Allergy Intermediate lips swell Verified 01/09/22 14:22 ascorbic acid Allergy Mild cold sores Verified 01/09/22 14:22 inositol Allergy Mild Cold sores Verified 01/09/22 14:22 lemon oil Allergy Mild Cold sores Verified 01/09/22 14:22 niacinamide Allergy Mild Cold sores Verified 01/09/22 14:22 pantothenic acid Allergy Mild Cold sores Verified 01/09/22 14:22 pyridoxine Allergy Mild Cold sores Verified 01/09/22 14:22 riboflavin (vitamin B2) Allergy Mild Cold sores Verified 01/09/22 14:22 thiamine (vitamin B1) Allergy Mild Cold sores Verified 01/09/22 14:22 cephalexin Allergy Unknown Nausea and Verified 01/09/22 14:22 vomiting Bioflavonoids / grape seed Allergy Mild Cold sores Uncoded 01/09/22 14:22 extract Choline Allergy Mild cold sores Uncoded 01/09/22 14:22 Lemon Flavor Allergy Mild Cold sores Uncoded 01/09/22 14:22 Vitamin B12 Allergy Mild Cold sores Uncoded 01/09/22 14:22 Review of Systems Narrative: Denies other injury PFSH PFS Medical History Anxiety disorder (07/23/12) Attention deficit disorder (07/23/12) Benzodiazepine abuse Depression (07/23/12) Gastroesophageal reflux disease History of bipolar disorder (09/08/12) History of suicidal ideation (09/08/12) Insomnia Palpitations Supraventricular tachycardia Tobacco use (07/23/12) Surgical History History of radiofrequency ablation (RFA) procedure for cardiac arrhythmia (05/26/19) Family History Mother Kilrk-Bfjufxlev-Vaqbl (WPW) syndrome Social History Smoking Status: Never smoker Do you use any of these nicotine containing products: None and Smokeless Tobacco Second hand tobacco smoke exposure: No How often do you have a drink containing alcohol: never How often do you have six or more drinks on one occasion: Never AUDIT-C Alcohol total score: 0 Non-prescribed substance use: denies use Little interest or pleasure in doing things: nearly every day Feeling down, depressed, or hopeless: nearly every day service: No Exam Narrative: Exam Narrative: Well-nourished well-developed patient in no acute distress. Alert and oriented. Answers questions appropriately. Mood and affect are appropriate. Thoughts are goal oriented and rational. No tangential or magical thinking noted. Patient speaks in full sentences without needing to catch his breath. He is a bit disheveled. HEENT: Normocephalic atraumatic. Pupils are equally round reactive to light. Extraocular muscles are intact. Conjunctivae are moist without any icterus noted. Extremities: Left hand is swollen and erythematous. It is not hot to touch. There is normal capillary refill, normal radial pulse. He has full range of motion of all his fingers. Full range of motion at the wrist without pain. No tenderness to palpation at the wrist. He has tenderness over the 3rd and 4th metacarpals. Const: Vital Signs, click to edit/add: Vital Signs - 24 hr 03/02/22 16:56 Temperature 97.3 F L Pulse Rate [Pulse Oximeter] 68 Respiratory Rate 16 Blood Pressure [Le ft Upper Arm] 136/88 Pulse Oximetry 99 Oxygen Delivery Me thod Room Air Course Course Hospital Course: X-ray of the hand was done and shows a possible cortical step-off fracture along the base of the 3rd metacarpal. This is consistent with where he has pain. Vital Signs Vital signs: Initial Vital Signs Temperature 97.3 F L 03/02/22 16:56 Temperature Source Temporal Artery Scan 03/02/22 16:56 Pulse Rate 68 03/02/22 16:56 Pulse Rhythm 03/02/22 16:56 Respiratory Rate 16 03/02/22 16:56 Blood Pressure 136/88 03/02/22 16:56 Blood Pressure Mean 104 03/02/22 16:56 Pulse Oximetry 99 03/02/22 16:56 Oxygen Delivery Method 03/02/22 16:56 Vital Signs Temperature 97.3 F L 03/02/22 16:56 Pulse Rate 68 03/02/22 16:56 Respiratory Rate 16 03/02/22 16:56 Blood Pressure 136/88 03/02/22 16:56 Pulse Oximetry 99 03/02/22 16:56 Oxygen Delivery Method 03/02/22 16:56 Temperature 97.3 F L 03/02/22 16:56 Pulse Rate 68 03/02/22 16:56 Respiratory Rate 16 03/02/22 16:56 Blood Pressure 136/88 03/02/22 16:56 Pulse Oximetry 99 03/02/22 16:56 Oxygen Delivery Method 03/02/22 16:56 Medical Decision Making MDM Narrative Medical decision making narrative: 31-year-old male with trauma to the hand with a probable fracture of the 3rd metacarpal. Patient placed in a wrist cock-up splint. He seemed comfortable with this as he does not have much pain with movement of the fingers. We discussed icing, elevation, yalz-nir-qduayjy NSAIDs. He tells me that ocjk-hdv-wsupczm NSAIDs are not helping he requested some Tylenol#3 which I did prescribe him. We discussed reasons to return to the ER. Patient was agreeable and had no other questions. Imaging Data Hand x-ray: Attestation: I have reviewed the pertinent imaging results. Radiologist's impression: Three views of the left hand. COMPARISON: None. FINDINGS: There is marked soft tissue swelling along the dorsum of the hand a possible cortical step-off along the base of the 3rd metacarpal on the PA view only. Otherwise no evidence of acute fracture or malalignment. No radiopaque foreign body. IMPRESSION: Soft tissue swelling along the dorsum of the hand. Possible cortical step-off along the base of the 3rd metacarpal. Recommend correlation with point tenderness. Discharge Plan Discharge Clinical Impression: Hand trauma, Fracture of third metacarpal bone Patient Disposition: Home, Self-Care Condition: Stable Additional Instructions: Elevate hand as much as possible, ice when needed. Do not apply ice directly to hand. Do not ice for more than 20 minutes at a time. Okay to take ibuprofen or Tylenol as needed/as directed for discomfort. You will need to follow-up appointment with orthopedic surgeon for next week. Prescription for Tylenol No. 3, #5 given. Prescriptions: No Action diltiazem HCl 120 mg capsule,extended release 12 hr 120 mg PO BID Qty: 180 1RF gabapentin 300 mg capsule 300 - 900 mg PO BID Qty: 180 1RF sertraline 100 mg tablet 100 mg PO DAILY Qty: 90 1RF metoprolol tartrate 25 mg tablet 25 mg PO QDAY lorazepam 0.5 mg tablet 0.5 mg PO QDAY PRN (Reason: benzo withdrawal) Qty: 5 0RF gabapentin 600 mg tablet 600 mg PO BID Qty: 60 5RF gabapentin 300 mg capsule 300 mg PO BID Qty: 60 5RF Follow Up/Referrals: Tomi Crystal MD [Primary Care Provider] - Stand Alone Forms: [facility] Info Instructions
[2022-03-02 19:04] VITALS: BP 136/88; PULSE 68; RESP 16; TEMP 36.3
== END 2022-03-02 19:05 | disposition home or self-care (01) ==
PROVIDERS: Emergency Provider Family Medicine; PCP Family Medicine
DX: S62.603A Fracture of unspecified phalanx of left middle finger, initial encounter for closed fracture (principal); W27.8XXA Contact with other nonpowered hand tool, initial encounter
CPT/HCPCS: 29125; 73130; 99283; 99284

== ENCOUNTER 2022-03-30 16:06 | Outpatient (CLI) | payer BC, SELFPAY ==
--- OUTSIDE RECORDS SUMMARY | 2022-04-02 10:52 | XMS_ITS | Encounter Summary ---
:1990 Author Organization [facility] Address [address] [place] [address] Care Team Providers Name Role Phone Unavailable [...]
--- OUTSIDE RECORDS SUMMARY | 2022-04-02 10:52 | XMS_ITS | Encounter Summary ---
:1990 Author Organization [facility] Address [address] [place] [address] Care Team Providers Name Role Phone Unavailable Primary Care Provider Unavailable Reason for Visit Reason Onset Date Comments Medication Question 12/18/2020 Encounter Details Date Type Department Care Team Description 12/18/2020 Telephone [facility] Nurse Gerry [place], order planner [facility] [address] [place] [address] Social History Tobacco Use Types Packs/Day [...] Pt called to report they see a hydroelectric plant technician at [facility] Dr. Palacio who put the pt on a new heart medication called Corlanor which can lower heart rate. Pt also takes propanolol and is planning to take their dose tonight but is not sure if they can take this together with the new medication. Pt's current heart rate is 117 BPM due pt being anxious. Action: Die Cutter Diamond unsure if pt is able to take [...] care. Gerry [place] RN 12/18/2020 8:00 PM [facility] Nurse Advisor COVID 19 Nurse Triage Plan/Patient Instructions Please be aware that novel coronavirus (COVID-19) may be circulating in the community. If you develop symptoms such as fever, cough, or SOB or if you have concerns about the presence of another infection including coronavirus (COVID- 19), please contact your health care provider or visit [email or web address]. Disposition/Instructions Additional COVID19 information to [...] full list on the EPA website: www.epa.gov/pesticide-registration/ vlpj-n-xttjplxkbdsiz-jdw-qlpqmyd-ptcy-cov-2. ??? Cover your mouth and nose with a mask, tissue or washcloth to avoid spreading germs. ??? Wash your hands and face often. Use soap and water. ??? Caregivers in these groups are at risk for severe illness due to COVID-19: o People 65 years and older o People who live in a intermediate or long-term care facility o People with [...] found in many medicines (both prescribed and pfxt-ojd-zrofvzo medicines). Read all labels to be sure [...] it can live on surfaces. ?? Common iron caster (household disinfectants) will kill the virus. Who is at risk? Anyone can catch COVID-19 if they???re around someone who has the virus. How can others protect themselves? ?? Stay away from people who have COVID-19 (or symptoms of COVID-19). ?? Wash hands often with soap and water. Or, use hand rate supervisor with at least 60% alcohol. ?? Avoid touching the eyes, nose or mouth. ?? Wear a face mask when you go out in public, when sick or when caring for a sick person. Where can I get more information? [facility]: About COVID-19: [email or web address] ??? CDC: What to Do If You???re Sick: www.cdc.gov/coronavirus/2019-ncov/about/sxsko-xksm-vick.html ??? CDC: Ending Home Isolation: www.cdc.gov/coronavirus/2019-ncov/hcp/hhmulfnhxpj-wf-ixrd-patients.html ??? CDC: Caring for Someone: www.cdc.gov/coronavirus/2019-ncov/cr-egm-hat-sick/qcxl-ryy-wtmlzqu.html ??? MD: Interim Guidance for Hospital Discharge to Home: www.health.[facility]./diseases/coronavirus/hcp/hospdischarge.pdf ??? [facility] clinical trials (COVID-19 research studies): clinicalaffairs.[facility]/rft-xxmxnnzd-wyjorr ??? Below are the COVID-19 hotlines at the [facility] ([facility]). Interpreters are available. o For health questions: Call [phone] or (7 a.m. to 7 p.m.) o For questions about schools and childcare: Call 281-331-4965 or (7 a.m. to 7 p.m.) Thank you for taking steps to prevent the spread of this virus. o Limit your contact with others. o Wear a simple mask to cover your cough. o Wash your hands well and often. Resources ??? [facility]: About COVID-19: [email or web address] ??? CDC: What to Do If You're Sick: www.cdc.gov/coronavirus/2019-ncov/about/sqaud-pvjq-hnut.html ??? CDC: Ending Home Isolation: www.cdc.gov/coronavirus/2019-ncov/hcp/jtlobhkvelq-cz-quid-patients.html ??? CDC: Caring for Someone: www.cdc.gov/coronavirus/2019-ncov/qu-gmb-dzz-sick/yfgo-uac-puofsqo.html ??? [facility]: Interim Guidance for Hospital Discharge to Home: www.[facility]./diseases/coronavirus/hcp/hospdischarge.pdf ??? [facility] clinical trials (COVID-19 research studies): clinicalaffairs.[facility]/pip-kviuaryq-kemmqd ??? Below are the COVID-19 hotlines at the [facility] ([facility]). Interpreters are available. o For health questions: Call [phone] or (7 a.m. to 7 p.m.) o For questions about schools and childcare: Call [phone] or (7 a.m. to 7 p.m.) documented in this encounter Plan of Treatment Not on filedocumented as of this encounter Visit Diagnoses Not on filedocumented in this encounter
--- OUTSIDE RECORDS SUMMARY | 2022-04-02 10:52 | XMS_ITS | Encounter Summary ---
:1990 Author Organization [facility] Address [address] [place] [address] Care Team Providers Name Role Phone Unavailable [...]
--- OUTSIDE RECORDS SUMMARY | 2022-04-02 10:52 | XMS_ITS | Encounter Summary ---
:1990 Author Organization [place] Address [facility] [address] Care Team Providers Name Role Phone Unavailable Primary Care Provider Unavailable Encounter Details Date Type Department Care Team Description 09/25/[address] [facility] Yessenia Potts, RN [address] [place] [address] Social History Tobacco Use Types Packs/Day [...]
--- OUTSIDE RECORDS SUMMARY | 2022-04-02 10:52 | XMS_ITS | Encounter Summary ---
:1990 Author Organization [place] Address [address] [place] [address]. [place] [address] Care Team Providers Name Role Phone Unavailable Primary Care Provider Unavailable Encounter Details Date Type Department Care Team Description 01/02/2016 Telephone [facility] Nurse Destiny Salas , RN Advisors [address] [facility] [address] Social History Tobacco Use Types Packs/Day Years Used Date Smoking Tobacco: Never Assessed Sex Assigned at Date Recorded Not on file documented as of this encounter Miscellaneous Notes Telephone Encounter - Destiny Salas RN - 01/02/2016 5:33 PM CDT Call Type: Triage Call Presenting Problem: Patient called stating that he had been in the [place] [facility] room last evening for a panic attack. He is requesting two tablets of Ativan to get him through so he can go in for a clinic appointment tomorrow. Dr. Damon was network pricing consultant and okayed two tablets, and states that the patient needs to go to see him tomorrow at the [facility]. Patient was advised and he will call the clinic in the morning to get an appointment time. The Ativan was called to the [facility] in [place]. Triage Note: Guideline Title: Medication Questions - [...]
--- OUTSIDE RECORDS SUMMARY | 2022-04-02 10:52 | XMS_ITS | Encounter Summary ---
:1990 Author Organization [place] Address Count includes the [facility] [place] [address] Care Team Providers Name Role Phone Unavailable Primary Care Provider Unavailable Encounter Details Date Type Department Care Team Description 10/03/[address] [facility] Nu rse Advisors June Law, RN [address] [place] [address] Social History Tobacco Use Types Packs/Day [...] and or prescribing MD. offered to page precision layout worker MD and declined. He stated that he [...]
--- OUTSIDE RECORDS SUMMARY | 2022-04-02 10:52 | XMS_ITS | Encounter Summary ---
:1990 Author Organization [place] Address [address] [place] [address] Care Team Providers Name Role Phone No Ref-Primary, Physician Primary Care Provider Reason for Visit Reason Onset Date Comments Pt. Information/instruction 11/30/2018 Encounter Details Date Type Department Care Team Description 11/30/2018 Telephone [facility] Nurse Lilian Barron , Pt. Advisors RN Information/instruction [address] [facility] [place] [address] Social History Tobacco Use Types Packs/Day Years Used Date Smoking Tobacco: Never Assessed Sex Assigned at Date Recorded Not on file documented as of this encounter Miscellaneous Notes Telephone Encounter - Lilina Barron RN - 11/30/2018 5:20 PM CDT [...] to be called on Saturday am, at: [phone]. RN then left this message in [facility], as requested. Lilian Barron RN [place] Nurse Advisors [phone] documented in this encounter Plan of Treatment Not on filedocumented as of this encounter Visit Diagnoses Not on filedocumented in this encounter Care Teams Necktie Stitcher Relationship Specialty Start Date End Date No Ref-Primary, Physician PCP - General 03/15/21 documented as of this encounter
--- OUTSIDE RECORDS SUMMARY | 2022-04-02 10:52 | XMS_ITS | Encounter Summary ---
:1990 Author Organization [place] Address [address] [place] [address] Care Team Providers Name Role Phone No Ref-Primary, Physician Primary Care Provider [phone] Encounter Details Date Type Department Care [...] on filedocumented in this encounter Care Teams Racing Manager Relationship Specialty Start Date End Date No Ref-Primary, Physician PCP - General 03/15/21 documented as of this encounter
--- OUTSIDE RECORDS SUMMARY | 2022-04-02 10:52 | XMS_ITS | Encounter Summary ---
:1990 Author Organization [place] Address [address] [place] [address] Care Team Providers Name Role Phone No Ref-Primary, Physician Primary Care Provider [phone] Encounter Details Date Type Department Care [...] on filedocumented in this encounter Care Teams Fuse Coiler Relationship Specialty Start Date End Date No Ref-Primary, Physician PCP - General 03/15/21 documented as of this encounter
--- OUTSIDE RECORDS SUMMARY | 2022-04-02 10:52 | XMS_ITS | Encounter Summary ---
:1990 Author Organization [place] Address Critical access hospital0 [facility] [place] [address] Care Team Providers Name Role Phone Unavailable Primary Care Provider Unavailable Encounter Details Date Type Department Care Team Description 08/20/2015 Telephone [facility] Nu e Advisors Gisele Agrawal, RN [address] [place] [address] Social History Tobacco Use Types Packs/Day [...] reality, disturbed ability to think, perceive and machine stamper clearly. ? NO Previously evaluated and worsening [...] if symptoms worsen or new symptoms develop. 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
--- OUTSIDE RECORDS SUMMARY | 2022-04-02 10:52 | XMS_ITS | Clinical Summary ---
:1990 [facility] Address [address] [place] [address] Care Team Providers Name Role Phone Found, [...] for each transition of care or referral. [employer] Allergies Active Allergy Reactions Severity Noted Date Comments Ascorbate Unknown 01/12/2021 Bioflavonoids Unknown 01/12/2021 Cephalexin Unknown 01/12/2021 Choline Fenofibrate Unknown 01/12/2021 Inositol Unknown 01/12/2021 Kiwi Extract Anaphylaxis High 01/12/2021 Lemon Flavor Unknown 01/12/2021 Lemon Oil Unknown 01/12/2021 [place] Flavor Unknown High 01/12/2021 [place] Niacinamide Unknown 01/12/2021 Pantothenic Acid Unknown 01/12/2021 [...] ss Type Group BCBS BCBS OUT OF [id number] 2019-Present [address] [address] [place] [address] Luisito Rainey Personal/Family Self 1990 [address] (Home) [address] [place] [address] Luisito Rainey Personal/Family Self 1990 [address] (Home) [address] [place] [id number] Advance Directives Latest Code Status on File Code Status Date Activated Date Inactivated Comments Full Code 01/12/2021 10:57 AM 01/16/2021 4:39 PM Care Teams Engineering Secretary Relationship Specialty Start Date End Date Found, No Pcp, PCP - General 04/11/21 [address] [facility] [place] [address]
--- OUTSIDE RECORDS SUMMARY | 2022-04-02 10:52 | XMS_ITS | Clinical Summary ---
:1990 Author Organization [place] Address [address] [place] [address] Care Team Providers Name Role Phone No Ref-Primary, Physician Primary Care Provider [phone] Allergies Active Allergy Reactions Severity Noted [...] ss Type Group BCBS BCBS OUT OF [id number] 2020-Present [phone] [address] [address] [place] [address] Care Teams Deli Clerk Relationship Specialty Start Date End Date No Ref-Primary, Physician PCP - General 03/15/21
--- OUTSIDE RECORDS SUMMARY | 2022-04-02 10:52 | XMS_ITS | Encounter Summary ---
:1990 Author Organization [place] Address [address] [place] [address] Care Team Providers Name Role Phone No Ref-Primary, Physician Primary Care Provider [phone] Encounter Details Date Type Department Care [...] on filedocumented in this encounter Care Teams Poultry Husbandry Worker Relationship Specialty Start Date End Date No Ref-Primary, Physician PCP - General 03/15/21 documented as of this encounter
--- OUTSIDE RECORDS SUMMARY | 2022-04-02 10:52 | XMS_ITS | Encounter Summary ---
:1990 Author Organization [place] Address [address] [place] [address] Care Team Providers Name Role Phone No Ref-Primary, Physician Primary Care Provider [phone] Reason for Visit Reason Comments Chest Pain Encounter Details Date Type Department Care Team Description 03/15/2021 Emergency [facility] Arnaldo Gutierrez MD Chest pain, non-cardiac; [place] [facility] [address] [facility] Tach yarrhythmia Dept ER [address] [place] [address] [place], [place] [phone] (Work) [phone] Social History Tobacco Use Types Packs/Day Years [...] arrhythmia, you should schedule follow-up with an pig iron loader. documented in this encounter Medications at Time [...] presents to ED via EMS from [facility]. Pt reports CP that started today at 1100. Pt states pain midsternal and was not brought on by any precipitating factors. Pt reports pain has been intermittent stabbing pain. Pt c/o palpitations and fluttering in chest. Nelly Blank RN - 03/15/2021 1:20 PM CDT Bed: ED04 Expected date: Expected time: Means of arrival: Comments: [facility] Arnaldo Gutierrez MD - 03/15/2021 1:20 PM CDT History Chief Complaint Patient presents with ??? Chest Pain HPI Luisito Rainey is a 30 year old male who comes in from [facility] because of chest pain. He describes today [...] May 26, 2019. 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 He has a history of ADHD and anxiety. He is Covid vaccinated. He has not had Covid infection. He has been at [facility] for 9 days for benzodiazepine abuse but [...] EKG: none Rhythm: normal sinus Rate: normal Brohman: normal Ectopy: none Conduction: normal ST Segments/ T Waves: No ST-T wave changes Q Waves: none Comparison to prior: No old EKG available Clinical Impression: normal EKG Critical Care time: none Results for orders placed or performed during the hospital encounter of 03/15/21 (from the past 24 hour(s)) [place] Draw Narrative The following orders were created for panel order [place] Draw. Procedure Abnormality Status --------- ------ Extra Blue Top Tube[[id number]] Final result Extra Red Top Tube[[id number]] Final result Extra Green Top ([place]...[[id number]] Final result Extra Green Top ([place]...[[id number]] Final result Extra Purple Top Tube[[id number]] Final result Please view results for these tests on the individual orders. CBC with platelets differential Narrative The following orders were created for panel order CBC with platelets differential. Procedure Abnormality Status --------- ------ CBC with platelets and d...[[id number]] Abnormal Final result Please view results for [...] Range Hold Specimen JIC Extra Green Top ([place] Heparin) Tube Result Value Ref Range Hold Specimen JIC Extra Green Top ([place] Heparin) Tube Result Value Ref Range Hold [...] (with Medical Decision Making) 30-year-old male at [facility] for benzodiazepine dependence presented with chest pains [...] can safely return to treatment at [facility]. He should schedule follow-up with electrophysiology regarding the tachyarrhythmia. I have reviewed the nursing notes. I have reviewed the findings, diagnosis, plan and need for follow up with the patient. New Prescriptions No medications on file Final diagnoses: Chest pain, non-cardiac Tachyarrhythmia 03/15/2021 [facility] EMERGENCY DEPT Arnaldo Gutierrez MD 03/15/21 [...] is unremarkable. BRENDA FELTON MD SYSTEM ID: [id number] Narrative 03/15/2021 4:26 PM CDT CHEST TWO [...] is unremarkable. BRENDA FELTON MD SYSTEM ID: [id number] Arnaldo Gutierrez MD IMG DIAGNOSTIC IMAGING ORDER ELIZA (ABNORMAL) CBC with platelets and differential (03/15/2021 2:05 PM CDT) [facility] Method Time Signature WBC Count 11.1 (H) 4.0 - 03/15/2021 IN LABORATORY 11.0 2:20 PM CDT 10e3/uL RBC Count 5.15 4.40 - 03/15/2021 IN LABORATORY 5.90 2:20 PM CDT 10e6/uL Hemoglobin 16.1 13.3 - 03/15/2021 IN LABORATORY 17.7 g/dL 2:20 PM CDT Hematocrit 45.9 40.0 - 03/15/2021 IN LABORATORY 53.0 % 2:20 PM CDT MCV 89 78 - 100 03/15/2021 IN LABORATORY fL 2:20 PM CDT MCH 31.3 26.5 - 03/15/2021 IN LABORATORY 33.0 pg 2:20 PM CDT MCHC 35.1 31.5 - 03/15/2021 IN LABORATORY 36.5 g/dL 2:20 PM CDT RDW 12.2 10.0 - 03/15/2021 IN LABORATORY 15.0 % 2:20 PM CDT Platelet Count 226 150 - 450 03/15/2021 [place] [facility] 10e3/uL 2:20 PM CDT % Neutrophils 77 % 03/15/2021 IN LABORATORY 2:20 PM CDT % Lymphocytes 14 % 03/15/2021 IN LABORATORY 2:20 PM CDT % Monocytes 7 % 03/15/2021 IN LABORATORY 2:20 PM CDT % Eosinophils 1 % 03/15/2021 IN LABORATORY 2:20 PM CDT % Basophils 1 % 03/15/2021 IN LABORATORY 2:20 PM CDT % Immature 0 % 03/15/2021 IN LABORATORY Granulocytes 2:20 PM CDT NRBCs per 100 0 <1 /100 03/15/2021 IN LABORATORY WBC 2:20 PM CDT Absolute 8.6 (H) 1.6 - 8.3 03/15/2021 IN LABORATORY Neutrophils 10e3/uL 2:20 PM CDT Absolute 1.5 0.8 - 5.3 03/15/2021 IN LABORATORY Lymphocytes 10e3/uL 2:20 PM CDT Absolute 0.8 0.0 - 1.3 03/15/2021 IN LABORATORY Monocytes 10e3/uL 2:20 PM CDT Absolute 0.2 0.0 - 0.7 03/15/2021 IN LABORATORY Eosinophils 10e3/uL 2:20 PM CDT Absolute 0.1 0.0 - 0.2 03/15/2021 IN LABORATORY Basophils 10e3/uL 2:20 PM CDT Absolute 0.1 (H) <=0.0 03/15/2021 IN LABORATORY Immature 10e3/uL 2:20 PM CDT Granulocytes Absolute NRBCs 0.0 10e3/uL 03/15/2021 IN LABORATORY 2:20 PM CDT Specimen Anatomical Collection Method / Collection Time Recei shakeel Time (Source) Location / Volume Laterality Blood VENOUS LINE / Venipuncture / 03/15/2021 2:05 2:10 Unknown Unknown PM CDT PM CDT Arnaldo Gutierrez MD LAB - BLOOD ORDERABLES Performing Organization Address City/State/[place] [address] [phone] Acute Care Lab [address] [place] [address], [facility] [phone] Acute Care Lab [address] Extra Purple Top Tube (03/15/2021 2:05 PM CDT) P athologist Signature Hold Specimen [facility] 03/15/2021 IN LABORATORY 3:18 PM CDT Specimen Anatomical Collection Method / Collection Time Recei shakeel Time (Source) Location / Volume Laterality Blood VENOUS LINE / Venipuncture / 03/15/2021 2:05 1 2:10 Unknown Unknown PM CDT PM CDT Arnaldo Gutierrez MD LAB - BLOOD ORDERABLES Performing Organization Address City/[facility]/[place] [address] [phone] Acute Care Lab [address] [place] [address], [facility] [phone] Acute Care Lab [address] Extra Green Top ([place] Heparin) Tube (03/15/2021 2:05 PM CDT) athologist Signature Hold Specimen [facility] 03/15/2021 IN LABORATORY 3:18 PM CDT Specimen Anatomical Collection Method / Collection Time Recei shakeel Time (Source) Location / Volume Laterality Blood VENOUS LINE / Venipuncture / 03/15/2021 2:05 1 2:10 Unknown Unknown PM CDT PM CDT Arnaldo Gutierrez MD LAB - BLOOD ORDERABLES Performing Organization Address City/State/[place] [address] [phone] Acute Care Lab [address] [place] [address] [phone] Acute Care Lab [address] [place] [address]. Room # 2186 Extra Green Top ([place] Heparin) Tube (03/15/2021 2:05 PM CDT) athologist Signature Hold Specimen JI 03/15/2021 IN LABORATORY 3:18 PM CDT Specimen Anatomical Collection Method / Collection Time Recei shakeel Time (Source) Location / Volume Laterality Blood VENOUS LINE / Venipuncture / 03/15/2021 2:05 1 2:10 Unknown Unknown PM CDT PM CDT Arnaldo Gutierrez MD LAB - BLOOD ORDERABLES Performing Organization Address City/[facility]/[place] [address] Acute Care Lab [address] [place] [address]. Room # 2186 [place] [address], [facility] [phone] Acute Care Lab [address] [place] [address]. Room # 2186 Extra Red Top Tube (03/15/2021 2:05 PM CDT) athologist Signature Hold Specimen [facility] 03/15/2021 IN LABORATORY 3:18 PM CDT Specimen Anatomical Collection Method / Collection Time Recei shakeel Time (Source) Location / Volume Laterality Blood VENOUS LINE / Venipuncture / 03/15/2021 2:05 1 2:10 Unknown Unknown PM CDT PM CDT Arnaldo Gutierrez MD LAB - BLOOD ORDERABLES Performing Organization Address City/[facility]/[place] [address] Acute Care Lab [address] [place] [address]vd. Room # 2186 [place] [address], [facility] [phone] Acute Care Lab [address] [place] [address]. Room # 2186 Extra Blue Top Tube (03/15/2021 2:05 PM CDT) athologist Signature Hold Specimen JI 03/15/2021 IN LABORATORY 3:18 PM CDT Specimen Anatomical Collection Method / Collection Time Recei shakeel Time (Source) Location / Volume Laterality Blood VENOUS LINE / Venipuncture / 03/15/2021 2:05 1 2:10 Unknown Unknown PM CDT PM CDT Arnaldo Gutierrez MD LAB - BLOOD ORDERABLES Performing Organization Address City/[facility] [place] [address] Acute Care Lab [address] [place], [place] [address]vd. Room # 2186 [place] [address], [facility] [phone] Acute Care Lab [address] [place] [address]. Room # 2186 Nt probnp inpatient (BNP) (03/15/2021 2:05 PM CDT) athologist Signature N terminal Pro 19 0 - 450 03/15/2021 IN LABORATORY BNP Inpatient pg/mL 2:36 PM CDT [...] LAB - BLOOD ORDERABLES Performing Organization Address City/[facility]/[place] [address] Acute Care Lab [address] [place] [address]. Room # 2186 [place] [address], [facility] [phone] Acute Care Lab [address] [place] [address]. Room # 2186 Troponin I (03/15/2021 2:05 PM CDT) athologist Signature Troponin I <0.015 0.000 - 03/15/2021 IN LABORATORY 0.045 ug/L 2:36 PM CDT Comment: [...] LAB - BLOOD ORDERABLES Performing Organization Address City/[facility]/ZIP [facility] [place] [address] Acute Care Lab [address] [place] [address]. Room # 2186 [place] [address], [facility] [phone] Acute Care Lab [address] [place] [address]. Room # 2186 Lipase (03/15/2021 2:05 PM CDT) P athologist Signature Lipase 132 73 - 393 U/L 03/15/2021 IN LABORATORY 2:27 PM CDT Specimen Anatomical Collection Method / Collection Time Recei shakeel Time (Source) Location / Volume Laterality Blood VENOUS LINE / Venipuncture / 03/15/2021 2:05 1 2:10 Unknown Unknown PM CDT PM CDT Arnaldo Gutierrez MD LAB - BLOOD ORDERABLES Performing Organization Address City/[facility] [place] [address] Acute Care Lab [address] [place] [address]. Room # 2186 [place] [address], [facility] [phone] Acute Care Lab [address] [place] [address]. Room # 2186 Comprehensive metabolic panel (03/15/2021 2:05 PM CDT) P athologist Signature Sodium 137 133 - 144 03/15/2021 IN LABORATORY mmol/L 2:33 PM CDT Potassium 3.8 3.4 - 5.3 03/15/2021 IN LABORATORY mmol/L 2:33 PM CDT Chloride 107 94 - 109 03/15/2021 IN LABORATORY mmol/L 2:33 PM CDT Carbon Dioxide 25 20 - 32 03/15/2021 IN LABORATORY (CO2) mmol/L 2:33 PM CDT Anion Gap 5 3 - 14 03/15/2021 IN LABORATORY mmol/L 2:33 PM CDT Urea Nitrogen 9 7 - 30 03/15/2021 IN LABORATORY mg/dL 2:33 PM CDT Creatinine 0.79 0.66 - 03/15/2021 IN LABORATORY 1.25 mg/dL 2:33 PM CDT Calcium 9.1 8.5 - 10.1 03/15/2021 IN LABORATORY mg/dL 2:33 PM CDT Glucose 90 70 - 99 03/15/2021 IN LABORATORY mg/dL 2:33 PM CDT Alkaline 103 40 - 150 03/15/2021 IN LABORATORY Phosphatase U/L 2:33 PM CDT AST 19 0 - 45 U/L 03/15/2021 IN LABORATORY 2:33 PM CDT ALT 34 0 - 70 U/L 03/15/2021 IN LABORATORY 2:33 PM CDT Protein Total 7.6 6.8 - 8.8 03/15/2021 IN LABORATORY g/dL 2:33 PM CDT Albumin 3.9 3.4 - 5.0 03/15/2021 IN LABORATORY g/dL 2:33 PM CDT Bilirubin Total 0.2 0.2 - 1.3 03/15/2021 IN LABORATORY mg/dL 2:33 PM CDT GFR Estimate >90 >60 03/15/2021 IN LABORATORY mL/min/1.7 2:33 PM CDT 3m2 Comment: [...] Organization Address City/State/[place] [address] Acute Care Lab [address] [place] [address]. Room # 2186 [place] [address], [facility] [phone] Acute Care Lab [address] [place] [address]. Room # 2186 D dimer quantitative (03/15/2021 2:05 PM CDT) Analysis Performed At Patho logist Time Signature D-Dimer 0.27 0.00 - 03/15/2021 IN LABORATORY Quantitative 0.50 ug/mL 2:23 PM CDT FEU Specimen Anatomical Collection Method / Collection Time Recei shakeel Time (Source) Location / Volume Laterality Blood VENOUS LINE / Venipuncture / 03/15/2021 2:05 2:10 Unknown Unknown PM CDT PM CDT Narrative IN LABORATORY - 03/15/2021 2:23 PM CDT This D-dimer assay is intended for use i n conjunction with a clinical pretest probability assessment model to exclude pulmonary embolism (PE) and deep venous thrombosis (DVT) in outpatients suspecte d of PE or DVT. The cut-off value is 0.50 ug/mL FEU. Arnaldo Gutierrez MD LAB - BLOOD ORDERABLES Performing Organization Address [facility]/[place] [address] Acute Care Lab [address] [place] [address]. Room # 2186 [place] [address], [facility] [phone] Acute Care Lab [address] [place] [address]. Room # 2186 EKG 12-lead, tracing only [...] dose documented in this encounter Care Teams Magistrate Assistant Relationship Specialty Start Date End Date No Ref-Primary, Physician PCP - General 03/15/21 documented as of this encounter
--- OUTSIDE RECORDS SUMMARY | 2022-04-02 10:52 | XMS_ITS | Clinical Summary ---
:1990 Author Organization [facility] [place] [address] Care Team Providers Name Role Phone Tomi [...] - Follow up Cold so res needed [place] Other - Describe In 03/20/2003 Comment Field [place] Anaphylaxis High 12/18/2013 [place] Flavor Other - Describe In High 01/12/2021 [place] Comment Field, [place] *Unknown - Follow up needed Multivitamin With Other - Describe In 09/05/2012 COL D SORE REACTION Iron,Other Minerals Comment Field TO VARIOUS/NUMEROU S Niacinamide Other - Describe In Medium 01/21/2019 Cold sor es Comment Field, Cold sores *Unknown - Follow up needed [place] Other - Describe In 03/21/2003 Comment Field [...] Cold sores *Unknown - Follow up needed [place] Other - Describe In 03/20/2003 Comment Field [...] Type Group BLUE CROSS BLUE CROSS OF [id number] 2019-Present [address] [address] [place] [address] [facility] Occ Health/Myrna Self 06/10/2000 [place] [facility] (Home) DEPT [id number] Mario NealClarendon [phone] [address] [facility] Tristan LOPEZ (Work) [place] [id number] Advance Directives Documents on File Type Date Recorded 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
--- OUTSIDE RECORDS SUMMARY | 2022-04-02 10:52 | XMS_ITS | Encounter Summary ---
:1990 Author Organization [facility] Address [address] [place] [address] Care Team Providers Name Role Phone No Ref-Primary, Physician Primary Care Provider [phone] Reason for Referral CV Cardio consult (Routine) - Closed Specialty Diagnoses / Procedures Referred By Referred To Contact Contact Cardiovascular Disease Diagnoses Palpitations Sinus tachycardia Paroxysmal supraventricular tachycardia (H) Pedrito Noguera, Emil meza MD [address] [facility] [address] [facility] [place] [address] [place], [place] Phone: [phone] Phone: Fax: Referral ID Status Reason Start Date Expiration Date Visits Requ ested Visits Authorized [id number] Closed 03/19/2021 03/19/2022 1 1 Reason for Visit Reason Comments Numbness lower left leg tingling onse t at 1900 lastnight pt ambulated into triage, pt from [facility] Palpitations hx of SVT feels palpitations , HR in triage 85 no chest pain Anxiety Encounter Details Date Type Department Care Team Description 03/19/2021 Emergency [facility] Pedrito Noguera, Palpi tations; Kimberly Emergency MD Sinus tachycardia; Dept [address] [facility] Paroxysmal supraventricular tachycardia (H); [address] [place] [address] Paresthesia of left leg; [place], [place] [phone] Anxiety [phone] (Work) [phone] Social History Tobacco Use Types Packs/Day Years [...] Services to schedule your ZIO Patch monitor car operator study as soon as possible: [phone]. An EP Cardiology clinic referral was made for you, they will contact you to establish follow-up. AttachmentsThe following attachments cannot be sent through Care Everywhere. Supraventricular Tachycardia (SVT), Understanding (British)Paraesthesias (British)Anxiety, Your Body's Response to (British)documented in this encounter Medications at Time of [...] lastnight pt ambulated into triage, pt from [facility] ??? Palpitations hx of SVT feels palpitations, HR in triage 85 no chest pain ??? Anxiety HPI Luisito Rainey is a 30 year old male from the [facility] treatment center, with history of anxiety,depression, [...] that he needs to see an EP Inventory Representative for medication adjustment and another ablation procedure. This morning he called the [facility] answering service or nurse triage service with concern of elevated heart rate and asking if he can switch back from Metoprolol to Nadolol and questioned whether he was to have another EP study/Zio patch monitor study. He was previously on Nadolol and Corlanor/Ivabradine (5 mg twice daily), but since admission to [facility] recently the beta-terrence therapy will [...] Ascorbate Calcium-Bioflavonoid Other - Describe In Comment [facility] 01/21/2019 Cold sores?? Bioflavonoids Other - Describe In Comment [facility] 01/21/2019 Cold sores?? Choline Fenofibrate Other - Describe In Comment [facility] 01/21/2019 Cold sores ?? Inositol Other - Describe In Comment [facility] 01/21/2019 Cold sores ?? Ascorbic Acid Other - Describe In Comment [facility] 01/21/2019 Cold sores ?? Lemon Oil Other - Describe In Comment [facility] 01/21/2019 Cold sores ?? Niacinamide Other - Describe In Comment [facility] 01/21/2019 Cold sores ?? Pantothenic Acid Other - Describe In Comment [facility] 01/21/2019 Cold sores ?? Pineapple Anaphylaxis High 02/17/2013 ?? Pyridoxine Other - Describe In Comment [facility] 01/21/2019 Cold sores ?? Riboflavin (Vitamin B2) Other - Describe In Comment [facility] 01/21/2019 Cold sores ?? Thiamine (Vitamin B1) Other - Describe In Comment [facility] 01/21/2019 Cold sores ?? Cyanocobalamin (Vitamin B12) Other - Describe In Comment [facility] 01/21/2019 Cold sores ?? Medications [...] EKG: Rapid palpitations Rhythm: normal sinus Rate: [place]: Horizontal axis Ectopy: none Conduction: RSR in [...] Status --------- ------ CBC with platelets and d...[[id number]] Abnormal Final result Please view results for [...] Making) 30 year old male from the [facility], with history of anxiety, depression, chemical dependency [...] repeatedly expressed that he had a particular Inventory Representative in the past who was only one that would listen to me and performed the ablation. He wants referral to a new EP electric trucker. He was previously on Nadolol and Corlanor/Ivabradine(5 mg twice daily) therapy per his [facility] Inventory Representative at [facility], but since admission to [facility] recently his beta-terrence therapy has been switched to Metoprolol tartrate 25 mg twice daily, and his palpitations have worsened, although his benzodiazepine dependence and abuse is also being treated and now his anxiety is worsening. He is unhappy with his Inventory Representative at the [facility] and would like referral for new EP Inventory Representative and get another monitor car operator study. He believes that he needs another ablation procedure. I will make a referral to EP cardiology and order an outpatient 7-day Zio patch monitor study. He declined resumption of Nadolol therapy instead of Metoprolol because he wants to ensure that his symptomatic rapid palpitations/PSVT is captured on the monitor study. He appears stable for discharge back to [facility] with continued monitoring there. He [...] (H) Paresthesia of left leg Anxiety 03/19/2021 [facility] Pedrito Noguera MD 03/19/21 597 documented in this encounter Miscellaneous Notes Result Encounter Note - Halberg, Fer, RN - 03/19/2021 5:50 PM CDT Within normal reference range. documented in this encounter Plan of Treatment Scheduled Referrals Name Type Priority Associated Diagnoses [facility] Referral Routine: Next [...] Signature Magnesium 2.1 1.6 - 2.3 03/19/2021 [facility] mg/dL 5:52 PM CDT Specimen Anatomical Collection Method / Collection Time Recei shakeel Time (Source) Location / Volume Laterality Blood VENOUS LINE / Venipuncture / 03/19/2021 5:15 5:34 Unknown Unknown PM CDT PM CDT Pedrito Noguera MD LAB - BLOOD ORDERABLES Performing Organization Address City/State/[place] [address] Acute Care Lab [address] [place] [address]. Room # 2186 [place] [address], [facility] [phone] Acute Care Lab [address] [place] [address]. Room # 2186 D dimer quantitative (03/19/2021 5:15 PM CDT) Analysis Performed At Patho logist Time Signature D-Dimer <0.27 0.00 - 03/19/2021 [facility] Quantitative 0.50 ug/mL 5:49 PM CDT FEU Specimen Anatomical Collection Method / Collection Time Recei shakeel Time (Source) Location / Volume Laterality Blood VENOUS LINE / Venipuncture / 03/19/2021 5:15 5:34 Unknown Unknown PM CDT PM CDT Narrative [facility] - 03/19/2021 5:49 PM CDT This D-dimer assay is intended for use i n conjunction with a clinical pretest probability assessment model to exclude pulmonary embolism (PE) and deep venous thrombosis (DVT) in outpatients suspecte d of PE or DVT. The cut-off value is 0.50 ug/mL FEU. Pedrito Noguera MD LAB - BLOOD ORDERABLES Performing Organization Address City/State/[place] [address] [phone] Acute Care Lab [address] [place] [address]. Room # 2186 [place] [address], [facility] [phone] Acute Care Lab [address] [place] [address]. Room # 2186 (ABNORMAL) CBC with platelets and differential (03/19/2021 3:57 PM CDT) Patholo gist Method Time Signature WBC Count 13.3 (H) 4.0 - 03/19/2021 [facility] 11.0 4:11 PM CDT 10e3/uL RBC Count 5.52 4.40 - 03/19/2021 [facility] 5.90 4:11 PM CDT 10e6/uL Hemoglobin 17.2 13.3 - 03/19/2021 [facility] 17.7 g/dL 4:11 PM CDT Hematocrit 48.6 40.0 - 03/19/2021 [facility] 53.0 % 4:11 PM CDT MCV 88 78 - 100 03/19/2021 [facility] fL 4:11 PM CDT MCH 31.2 26.5 - 03/19/2021 [facility] 33.0 pg 4:11 PM CDT MCHC 35.4 31.5 - 03/19/2021 [facility] 36.5 g/dL 4:11 PM CDT RDW 12.2 10.0 - 03/19/2021 [facility] 15.0 % 4:11 PM CDT Platelet Count 242 150 - 450 03/19/2021 [facility] 10e3/uL 4:11 PM CDT % Neutrophils 73 % 03/19/2021 [facility] 4:11 PM CDT % Lymphocytes 18 % 03/19/2021 [facility] 4:11 PM CDT % Monocytes 6 % 03/19/2021 [facility] 4:11 PM CDT % Eosinophils 2 % 03/19/2021 [facility] 4:11 PM CDT % Basophils 1 % 03/19/2021 [facility] 4:11 PM CDT % Immature 0 % 03/19/2021 [facility] Granulocytes 4:11 PM CDT NRBCs per 100 0 <1 /100 03/19/2021 [facility] WBC 4:11 PM CDT Absolute 9.7 (H) 1.6 - 8.3 03/19/2021 [facility] Neutrophils 10e3/uL 4:11 PM CDT Absolute 2.4 0.8 - 5.3 03/19/2021 [facility] Lymphocytes 10e3/uL 4:11 PM CDT Absolute 0.9 0.0 - 1.3 03/19/2021 [facility] Monocytes 10e3/uL 4:11 PM CDT Absolute 0.3 0.0 - 0.7 03/19/2021 [facility] Eosinophils 10e3/uL 4:11 PM CDT Absolute 0.1 0.0 - 0.2 03/19/2021 [facility] Basophils 10e3/uL 4:11 PM CDT Absolute 0.0 <=0.0 03/19/2021 [facility] Immature 10e3/uL 4:11 PM CDT Granulocytes Absolute NRBCs 0.0 10e3/uL 03/19/2021 [facility] 4:11 PM CDT Specimen Anatomical Collection Method / Collection Time Recei shakeel Time (Source) Location / Volume Laterality Blood STRUCTURE OF LEFT Venipuncture / 03/19/2021 3:57 03/19 4:08 UPPER LIMB / Unknown PM CDT PM CDT Unknown Pedrito Noguera MD LAB - BLOOD ORDERABLES Performing Organization Address City/[facility]/[place] [address] [phone] Acute Care Lab [facility]. Room # 2186 [place] [address], [facility] [phone] Acute Care Lab [address] [place] [address]. Room # 2186 Troponin I (03/19/2021 3:57 PM CDT) athologist Signature Troponin I <0.015 0.000 - 03/19/2021 [facility] 0.045 ug/L 4:31 PM CDT Comment: [...] LAB - BLOOD ORDERABLES Performing Organization Address City/[facility]/[place] [address] Acute Care Lab [address] [place] [address]. Room # 2186 [place] [address], [facility] [phone] Acute Care Lab [address] [place] [address]. Room # 2186 Basic metabolic panel (03/19/2021 3:57 PM CDT) athologist Signature Sodium 139 133 - 144 03/19/2021 [facility] mmol/L 4:27 PM CDT Potassium 4.0 3.4 - 5.3 03/19/2021 [facility] mmol/L 4:27 PM CDT Chloride 106 94 - 109 03/19/2021 [facility] mmol/L 4:27 PM CDT Carbon Dioxide 26 20 - 32 03/19/2021 [facility] (CO2) mmol/L 4:27 PM CDT Anion Gap 7 3 - 14 03/19/2021 [facility] mmol/L 4:27 PM CDT Urea Nitrogen 10 7 - 30 03/19/2021 [facility] mg/dL 4:27 PM CDT Creatinine 0.79 0.66 - 03/19/2021 [facility] 1.25 mg/dL 4:27 PM CDT Calcium 9.3 8.5 - 10.1 03/19/2021 [facility] mg/dL 4:27 PM CDT Glucose 86 70 - 99 03/19/2021 [facility] mg/dL 4:27 PM CDT GFR Estimate >90 >60 03/19/2021 [facility] mL/min/1.7 4:27 PM CDT 3m2 Comment: [...] Unknown PM CDT PM CDT Unknown Pedrito Nougera MD LAB - BLOOD ORDERABLES Performing Organization Address City/State/[place] [address] [phone] Acute Care Lab [address] [place] [address]. Room # 2186 [place] [address] [phone] Acute Care Lab [address] [place] [address]. Room # 2186 EKG 12 lead (03/19/2021 [...] dose documented in this encounter Care Teams Wheel Roller Relationship Specialty Start Date End Date No Ref-Primary, Physician PCP - General 03/15/21 documented as of this encounter
--- OUTSIDE RECORDS SUMMARY | 2022-04-02 10:52 | XMS_ITS | Encounter Summary ---
:1990 Author Organization [facility] Address [address] [place] [address] Care Team Providers Name Role Phone Unavailable [...]
--- OUTSIDE RECORDS SUMMARY | 2022-04-02 10:52 | XMS_ITS | Encounter Summary ---
:1990 Author Organization [facility] Address [address] [place] [address] Care Team Providers Name Role Phone No Ref-Primary, Physician Primary Care Provider [phone] Encounter Details Date Type Department Care Team [...] on filedocumented in this encounter Care Teams Account Development Associate Relationship Specialty Start Date End Date No Ref-Primary, Physician PCP - General 03/15/21 documented as of this encounter
--- OUTSIDE RECORDS SUMMARY | 2022-04-02 10:53 | XMS_ITS | Encounter Summary ---
:1990 Author Organization [facility] Address [address] [place] [address] Care Team Providers Name Role Phone Elsewhere, Pcp Primary Care Provider Unavailable Reason for Referral Outpatient (Routine) - Closed Specialty Diagnoses / Procedures Referred By Contact Refer red To Contact Diagnoses Tachycardia Supraventricular (HCC) Rodrigo Gray V. [facility] Procedures ECG Event Recorder Karley, Ph.D. [address] [place] [address] [phone] Referral ID Status Reason Start Date Expiration Date Visits Requ ested Visits Authorized [id number] Closed 07/10/2021 07/10/2022 1 1 ECTION WARDEN Reason for Visit Outpatient (Routine) - Closed Specialty Diagnoses / Procedures Referred By Contact Refer red To Contact Diagnoses Tachycardia Supraventricular (HCC) Rodrigo Gray V. [facility] Procedures ECG Event Recorder Karley, Ph.D. [address] [place] [address] [phone] Referral ID Status Reason Start Date Expiration Date Visits Requ ested Visits Authorized [id number] Closed 07/10/2021 07/10/2022 1 1 Encounter Details Date Type Department Care Team Description 07/10/2021 [facility] [place], Tachycardia Encounter Cardiovascular Rodrigo Arias Supraventr icular (HCC) Diseases in Karley, Ph.D. [place], [place] [address] [facility] [address] [place] [phone] [phone] Social History Tobacco Use Types Packs/Day Years [...] How often do you attend restorationism or protestant services? Never 07/18/2021 Do you [...] at Date Recorded Male 06/01/2020 11:57 AM CORRECTION WARDEN documented as of this encounter Medications at [...] mouth at 0 03/01/20 21 tablet bedtime. [id number] Take 1 tablet by mouth 0 -minerals [...] Results f or this ALL CHARGES AM CORRECTION WARDEN Supraventricular (HCC) proce dure are in the results section. documented in this encounter Results EVENT MONITOR - ALL CHARGES (07/06/2021 6:30 AM CORRECTION WARDEN) Specimen (Source) Anatomical Collection Method Collection Time Re ceived Time Location / / Volume Laterality 07/12/2021 1:51 PM CORRECTION WARDEN Narrative [facility] - 07/13/2021 8:41 AM CORRECTION WARDEN 1. The patient was monitored from 06/01/2021 [...] to 150 BPM. No ectopy was seen. Engineering Psychologist: PANCHO Fraire/PANCHO Trevino Procedure Note Gordon Stephen [...] to 150 BPM. No ectopy was seen. Engineering Psychologist: PANCHO Fraire/PANCHO Trevino Rodrigo Gray M.D., Ph.D. CV CARDIAC SERVICE S PROCEDURES Performing Organization Address City/State/ZIP Code Phon e Number [facility] documented in this encounter Visit Diagnoses Diagnosis Tachycardia Supraventricular (HCC) documented in this encounter Additional Health Concerns Assessment Noted Time PHQ-9 Depression Total Score: 11 09/09/2015 4:10 PM CD T documented as of this encounter Care Teams Loan Review Officer Relationship Specialty Start Date End Date Elsewhere, Pcp PCP - General Internal Medicine 07/04/21 documented as of this encounter
--- OUTSIDE RECORDS SUMMARY | 2022-04-02 10:53 | XMS_ITS | Encounter Summary ---
:1990 Author Organization [facility] Address [address] [place] [address] Care Team Providers Name Role Phone Elsewhere, Pcp Primary Care Provider Unavailable Encounter Details Date Type Department Care Team Description 09/22/2021 Clinical Communication Department of Lorin Rodriguez Cardiovascular Medicine Kilo Hoskins in [facility] [address] [facility] [address] [place] [address] [phone] Social History Tobacco Use Types Packs/Day Years [...] How often do you attend holiness or samaritan services? 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 documented in this encounter Plan of Treatment Not on filedocumented as of this encounter Visit Diagnoses Not on filedocumented in this encounter Additional Health Concerns Assessment Noted Time PHQ-9 Depression Total Score: 11 09/09/2015 4:10 PM CD T documented as of this encounter Care Teams Pigment Mixer Relationship Specialty Start Date End Date Elsewhere, Pcp PCP - General Internal Medicine 07/04/21 documented as of this encounter
--- OUTSIDE RECORDS SUMMARY | 2022-04-02 10:53 | XMS_ITS | Encounter Summary ---
:1990 Author Organization [facility] Address [address] [place] [address] Care Team Providers Name Role Phone Elsewhere, Pcp Primary Care Provider Unavailable Reason for Visit Auth/Cert Specialty Diagnoses / Procedures Referred By Contact Refer red To Contact Diagnoses Tachycardia Supraventricular (HCC) Procedures GA EP EVAL W SUPRAVENT ABLATE DIAGNOSTIC EPS ABLATION - SVT Referral ID Status Reason Start Date Expiration Date Visits Requ ested Visits Authorized [id number] 1 1 Encounter Details Date Type Department Care Team Description 07/07/2021 [facility] [place], Tachycardia Sup raventricular (HCC); Encounter Cardiovascular Wilmer Aguirreardi a Supraventricular (HCC) Diseases in M.D., Ph.D. [place], [place] [address] [facility] [address] [place] [id number] Social History Tobacco Use Types Packs/Day Years [...] How often do you attend synagogue or latter-day services? Never 07/18/2021 Do you belong to [...] at Date Recorded Male 06/01/2020 11:57 AM ARCHITECT INTERNSHIP documented as of this encounter Last Filed Vital Signs Vital Sign Reading Time Taken Comments Blood Pressure 98/43 07/07/2021 12:45 PM ARCHITECT INTERNSHIP Pulse 101 07/07/2021 12:45 PM ARCHITECT INTERNSHIP Temperature 36.9 ??C (98.5 ??F) 07/07/2021 7:18 AM ARCHITECT INTERNSHIP Respiratory Rate - - Oxygen Saturation 100% 07/07/2021 12:45 PM ARCHITECT INTERNSHIP Inhaled Oxygen Concentration - - Weight - - Height - - Body Mass Index - - documented in this encounter Discharge Instructions Discharge InstructionsFYanna prescott - 07/07/2021 12:26 PM CST You were discharged from the [facility] CVD Interventional/Heart Rhythm Service. Please identify [...] 4:00 p.m., contact the Electrophysiology Service at [phone]. For questions occurring after business hours, on weekends, nights, or holidays call [phone] and ask for Electrophysiology Line Maintenance. Heart Failure Assessment: Weigh yourself at the [...] avoid/skip your follow-up appointments, they are important! [employer]TE[employer] INTERNSHIP documented in this encounter Medications at Time [...] mouth at 0 03/01/20 21 tablet bedtime. [id number]-Wb-kani Take 1 tablet by mouth 0 -minerals [...] instructions were reviewed in detail as per [id number] with patient and family and they verbalized understanding. Follow up appointment is arranged. Patient was dismissed when discharge criteria was met, accompanied byfriendAll questions answered. [employer] INTERNS[employer]IP documented in this encounter Plan of Treatment Not on filedocumented as of this encounter Procedures Procedure Name Priority Date/Time Associated Diagnosis Comme nts ECG Routine 07/07/2021 11:37 Results for this AM ARCHITECT INTERNSHIP procedure are i n the results section. HEART RHYTHM Routine 07/07/2021 10:57 Tachycardia Results for this PROCEDURE AM ARCHITECT INTERNSHIP Supraventricular (HCC) proce dure are in the results section. ACT, POCT, B Routine 07/07/2021 10:45 Results for this AM ARCHITECT INTERNSHIP procedure are i n the results section. ACT, POCT, B Routine 07/07/2021 10:07 Results for this AM ARCHITECT INTERNSHIP procedure are i n the results section. ACT, POCT, B Routine 07/07/2021 9:40 Results for this AM ARCHITECT INTERNSHIP procedure are i n the results section. ACT, POCT, B Routine 07/07/2021 9:22 Results for this AM ARCHITECT INTERNSHIP procedure are i n the results section. ABG AND LYTES Routine 07/07/2021 9:19 Results for this EG6+, POCT, B AM ARCHITECT INTERNSHIP procedure are in the results section. documented in this encounter Results ECG 12 Lead (07/07/2021 11:37 AM ARCHITECT INTERNSHIP) P athologist Signature Ventricular Rate 92 BPM MUSE ECG/Min GA Interval 144 ms MUSE QRSD Interval 90 ms MUSE QT Interval 346 ms MUSE QTC Interval 427 ms MUSE P Sheridan 51 degrees MUSE R Sheridan -3 degrees MUSE T Wave [place] 43 degrees MUSE Specimen Anatomical Collection Method Collection Time Receive d Time (Source) Location / / Volume Laterality 07/07/2021 11:37 07/07/2021 AM ARCHITECT INTERNSHIP 11:38 AM ARCHITECT INTERNSHIP Impressions MUSE - 07/07/2021 11:38 AM ARCHITECT INTERNSHIP Normal sinus rhythm Normal ECG When compared [...] M.D., Ph.D. ECG ORDERABLES Performing Organization Address City/State/[facility] Phon e Number MUSE MUSE NA DIAGNOSTIC EPS (07/07/2021 10:57 AM ARCHITECT INTERNSHIP) Anatomical Region Laterality Modality X-Ray Angiography Specimen (Source) Anatomical Collection Method Collection Time Re ceived Time Location / / Volume Laterality 07/07/2021 8:38 AM ARCHITECT INTERNSHIP Narrative 07/07/2021 11:38 AM ARCHITECT INTERNSHIP For the complete report, see the Order-L [...] (Activated Clotting Time), POCT (07/07/2021 10:45 AM ARCHITECT INTERNSHIP) P athologist Signature Activated 114 84 - 139 07/07/2021 PCSM Clotting Time, sec 10:52 AM ARCHITECT INTERNSHIP POCT Specimen Anatomical Collection Method Collection Time Receive d Time (Source) Location / / Volume Laterality Blood 07/07/2021 10:45 07/07/2021 AM ARCHITECT INTERNSHIP 10:53 AM ARCHITECT INTERNSHIP Unknown Provider LAB POCT ORDERABLES - DEVICE Performing Organization Address City/State/ZIP Code Phon e Number POC RST [facility] INPATIENT [address] [place], [place] [address] LABS PCSM [facility] [address] [place] P[place] [address] (ABNORMAL) ACT (Activated Clotting Time), POCT (07/07/2021 10:07 AM ARCHITECT INTERNSHIP) P athologist Signature Activated 211 (H) 84 - 139 07/07/2021 PCSM Clotting Time, sec 10:16 AM ARCHITECT INTERNSHIP POCT Specimen Anatomical Collection Method Collection Time Receive d Time (Source) Location / / Volume Laterality Blood 07/07/2021 10:07 07/07/2021 AM ARCHITECT INTERNSHIP 10:17 AM ARCHITECT INTERNSHIP Unknown Provider LAB POCT ORDERABLES - DEVICE Performing Organization Address City/State/[facility] Code Phon e Number POC [facility]ST [facility] INPATIENT [address] [place], [place] [address] [place] [address] [place] POC [address] (ABNORMAL) ACT (Activated Clotting Time), POCT (07/07/2021 9:40 AM ARCHITECT INTERNSHIP) P athologist Signature Activated 211 (H) 84 - 139 07/07/2021 PCSM Clotting Time, sec 9:49 AM ARCHITECT INTERNSHIP POCT Specimen Anatomical Collection Method Collection Time Receive d Time (Source) Location / / Volume Laterality Blood 07/07/2021 9:40 AM 2 9:49 ARCHITECT INTERNSHIP AM ARCHITECT INTERNSHIP Unknown Provider LAB POCT ORDERABLES - DEVICE Performing Organization Address City/[facility] Phon e Number POC [facility] IN[facility]IENT [address] [place], [place] [address] [place] [address] [place] POC [address] (ABNORMAL) ACT (Activated Clotting Time), POCT (07/07/2021 9:22 AM ARCHITECT INTERNSHIP) P athologist Signature Activated 216 (H) 84 - 139 07/07/2021 PCSM Clotting Time, sec 9:33 AM ARCHITECT INTERNSHIP POCT Specimen Anatomical Collection Method Collection Time Receive d Time (Source) Location / / Volume Laterality Blood 07/07/2021 9:22 AM 2 9:33 ARCHITECT INTERNSHIP AM ARCHITECT INTERNSHIP Unknown Provider LAB POCT ORDERABLES - DEVICE Performing Organization Address City/[facility] Phon e Number POC [facility]IENT [address] [place], [place] [address] [place] [address] [place] P[place] [address] (ABNORMAL) ABG and Lytes, POCT (07/07/2021 9:19 AM ARCHITECT INTERNSHIP) P athologist Signature Sample Site, Artline 07/07/2021 PCLX POCT 9:33 AM ARCHITECT INTERNSHIP Comment: ----ADDITIONAL INFORMATION---- Performed at the Point of Care pH, POCT 7.34 (L) 7.35 - 7.45 07/07/2021 9:33 AM ARCHITECT INTERNSHIP PCLX Comment: ----ADDITIONAL INFORMATION---- Performed at the Point of Care pCO2, POCT 51 (H) 35 - 48 mm Hg 07/07/2021 9:33 AM ARCHITECT INTERNSHIP PC LX Comment: ----ADDITIONAL INFORMATION---- Performed at the Point of Care pO2, POCT 151 (H) 83 - 108 mm Hg 07/07/2021 9:33 AM ARCHITECT INTERNSHIP PC LX Comment: ----ADDITIONAL INFORMATION---- Performed at the Point of Care Base, POCT 2 -2 - 3 mmol/L 07/07/2021 9:33 AM ARCHITECT INTERNSHIP PC LX Comment: ----ADDITIONAL INFORMATION---- Performed at the Point of Care HCO3, POCT 28 (H) 22 - 26 mmol/L 07/07/2021 9:33 AM ARCHITECT INTERNSHIP P CLX Comment: ----ADDITIONAL INFORMATION---- Performed at the Point of Care Sodium, POCT, B 140 135 - 145 mmol/L 07/07/2021 9:33 A M ARCHITECT INTERNSHIP PCLX Comment: ----ADDITIONAL INFORMATION---- Performed at the Point of Care Potassium, POCT, B 3.5 (L) 3.6 - 5.2 mmol/L 07/07/2021 9:3 3 AM ARCHITECT INTERNSHIP PCLX Comment: ----ADDITIONAL INFORMATION---- Performed at the Point of Care Hematocrit, POCT, B 41.0 38.3 - 48.6 % 07/07/2021 9:33 AM ARCHITECT INTERNSHIP PCLX Comment: ----ADDITIONAL INFORMATION---- Performed at the Point of Care Specimen Anatomical Collection Method Collection Time Receive d Time (Source) Location / / Volume Laterality Blood 07/07/2021 9:19 AM 9:33 ARCHITECT INTERNSHIP AM ARCHITECT INTERNSHIP Unknown Provider LAB POCT ORDERABLES - DEVICE Performing Organization Address City/State/ZIP Code Phon e Number POC [facility] [address] [place] [address] PCLX [facility] [place] [address] [place] POC [address] documented in [...] 120 mg (CARDIZEM Given 07/07/2021 2:46 PM ARCHITECT INTERNSHIP 120 mg CD/CARTIA XT) 120 mg, oral, Once, On Sat07/07/21 at 1430, For 1 dose, PACU (only), Swallow whole. Do NOT crush, chew or open capsule. erythromycin 5 mg/gram (0.5 %) ophthalmic Given 07/07/2021 2:46 PM ARCHITECT INTERNSHIP 1 cm ointment 1 cm (ROMYCIN) 1 [...] 1 mg (ATIVAN) Given 07/07/2021 12:25 PM ARCHITECT INTERNSHIP 1 mg 1 mg, oral, Once, On Sat07/07/21 at 1145, For 1 dose, PACU (only) nicotine polacrilex (NICORETTE) 2 mg gum - ADS Override Pull Starting on Sat07/07/21 at 1147, For 1 dose, Created b y cabinet override nicotine polacrilex gum 4 mg (NICORETTE) Given 07/07/2021 12:26 PM ARCHITECT INTERNSHIP 4 mg 4 mg, buccal, Every 1 [...] Recently Administered Medications Times are shown in ARCHITECT INTERNSHIP. Scheduled Medication Order 07/05/2021 07/06/2021 07/07/2021 [id number] [...] as of this encounter Care Teams Veterinary Epidemiologist Relationship Specialty Start Date End Date Elsewhere, Pcp PCP - General Internal Medicine 07/04/21 documented as of this encounter
--- OUTSIDE RECORDS SUMMARY | 2022-04-02 10:53 | XMS_ITS | Encounter Summary ---
:1990 Author Organization [facility] Address [address] [place] [address] Care Team Providers Name Role Phone Found, No Pcp MD Primary Care Provider Unavailable Reason for Visit Reason Comments Chest Pain CRISIS EVALUATION--ED Encounter Details Date Type Department Care Team Description 04/11/2021 Emergency [facility] Emergency Dept Yee Powell, Heart palpitations (Primary Dx); [facility]. PA-C Anxiety; [place] [address] [address] [facility] Suicidal ideation [phone] [place], [place] [id number] (Wo rk) Social History Tobacco Use Types [...] be sent through Care Everywhere. Supraventricular Tachycardia (Marshallese)documented in this encounter Medications at Time of [...] Carrillo RN - 04/11/2021 8:26 PM CDT [facility] ED Nursing Discharge Note Patient discharged: [...] patient came to the ED from the [facility], [phone]=[phone]. He presented to the ED with a medication list but no other information from [facility]. I called & spoke to Garrison who [...] Powell PA-C - 04/11/2021 4:54 PM CDT [facility] Emergency Medicine Visit Note Chief Complaint: Chest Pain and CRISIS EVALUATION--ED Luisito Rainey is a 30 y.o. old male presents from inpatient treatment facility [facility]. Hestates he is chronically suicidal, no [...] assessment was completed with the patient. A renal social worker, patient's Nurse and me were all present [...] infectious or metabolic cause of current condition. handy worker consultation ordered. Based on initial physical exam and chart review lab work was indicated at this time. CBC, BMP, TSH troponin and ECG. Likely anxiety but will do work up if negative he can follow up with his dry janitor. His lump is likely a lymphnode, will [...] time. Pending labs and d/c back to [place]. [GT] 190 Reviewed labs which is all in normal range. [GT] 1906 Updated patient. He is lying in bed cooperative, alert and oriented. Will f/u with his dry janitor on 04/20/21 and speak to his PCP [...] procedure are i n the results section. [id number] ELECTROCARDIOGRAM STAT 04/11/2021 4:58 R esults for [...] Organization Address City/State/ZIP Code Phon e Number [address] [address] TSH (04/11/2021 5:04 PM CDT) athologist Signature TSH, Sensitive 1.19 0.30 - 04/11/2021 [facility] 4.50 6:25 PM CDT HOSPITAL uIU/mL Specimen Anatomical Collection Method / Collection Time Recei shakeel Time (Source) Location / Volume Laterality Blood Venipuncture / 04/11/2021 5:04 04/11/2021 5:08 Unknown PM CDT PM CDT Arnaldo Rabago PA-C LAB_1 Performing Organization Address City/[facility]/ZIP [place] Phon e Number [address] [address] Troponin I (04/11/2021 5:04 PM CDT) athologist Signature Troponin I <0.01 0.00 - 0.03 04/11/2021 [facility] ng/mL 5:42 PM CDT HOSPITAL Specimen Anatomical Collection Method / Collection Time Recei shakeel Time (Source) Location / Volume Laterality Blood Venipuncture / 04/11/2021 5:04 04/11/2021 5:08 Unknown PM CDT PM CDT Arnaldo Parker Gem FLORES LAB_1 Performing Organization Address [facility] e Number [address] [address] Basic Metabolic Panel (04/11/2021 5:04 PM CDT) [...] Elena Rabago PA-C LAB_1 Performing Organization Address City/[facility]/ZIP Code Phon e Number [facility] [address] [place] [address] ECG 12-Lead STAT (04/11/2021 4:58 PM CDT) P athologist Signature Ventricular Rate 63 BPM [facility] Atrial Rate 63 BPM [facility] P-R Interval 128 ms [facility] QRS Duration 94 ms [facility] QT 368 ms [facility] QTc 376 ms [facility] P [place] 23 degrees [facility] T [place] 44 degrees [facility] Specimen (Source) Anatomical Collection Method Collection Time Re ceived Time Location / / Volume Laterality 04/11/2021 4:58 PM CDT Narrative [facility] - 04/12/2021 8:02 AM CDT Sinus rhythm Normal ECG No previous ECGs available Confirmed by MD BANG SUVEER ([id number]) o n 04/12/2021 8:02:33 AM Procedure Note Nimo Bang MD - 04/12/2021Formatti ng of this note might be different from the original. Sinus rhythm Normal ECG No previous ECGs available Confirmed by MD BANG SUVEER ([id number]) o n 04/12/2021 8:02:33 AM Arnaldo Elena Rabago PA-C EKG Performing Organization Address City/[facility] Phon e Number [facility] [address] [place] [address] documented in this encounter Visit Diagnoses Diagnosis Heart palpitations - Primary Palpitations Anxiety (HRC) Anxiety state, unspecified Suicidal ideation Triage Assessment Note - Stephanie Carrillo RN - 04/11/2021 4:52 PM CDT Patient arrived by [facility] from [place] with chief complaint: Chest pain with suicidal comments Symptoms/background (EMS narrative): Pt comes from the [facility] after feeling like hehas had chest pain [...] required. documented in this encounter Care Teams Medical Health Researcher Relationship Specialty Start Date End Date Found, No Pcp, PCP - General 04/11/21 [address] [place] [address] documented as of this encounter
--- OUTSIDE RECORDS SUMMARY | 2022-04-02 10:53 | XMS_ITS | Encounter Summary ---
:1990 Author Organization [facility] Address [address] [place] [address] Care Team Providers Name Role Phone Unavailable Primary Care Provider Unavailable Reason for Visit Outpatient (Routine) - Canceled Specialty Diagnoses / Procedures Referred By Contact Refer red To Contact Diagnoses Tachycardia Supraventricular (HCC) Rodrigo Gray V., [facility] Procedures ECG Event Recorder Karley, Ph.D. [address] [place] [address] Referral ID Status Reason Start Date Expiration Date Visits V isits Requested Authorized [id number] Canceled 05/25/2021 05/25/2022 1 1 Encounter Details Date Type Department Care Team Description 05/26/2021 [facility] [place], Tachycardia Encounter Cardiovascular Rodrigo Arias, Supraventr icular (HCC) Diseases in Karley, Ph.D. [place], [place] [address] [place] [address] [place] [phone] Social History Tobacco Use Types Packs/Day Years [...] How often do you attend voodoo or church services? 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 syringe LORazepam (ATIVAN) 1 Take 1 tablet by mouth 0 mg tablet as needed. melatonin 10 mg Take 10 mg by mouth at 0 03/01/20 21 tablet bedtime. frzypfnxkaxc-Ew-kwii Take 1 tablet by mouth 0 -minerals [...]
--- OUTSIDE RECORDS SUMMARY | 2022-04-02 10:53 | XMS_ITS | Encounter Summary ---
:1990 Author Organization [facility] Address [address] [place] [address] Care Team Providers Name Role Phone Elsewhere, Pcp Primary Care Provider Unavailable Reason for Visit Appointment Request (Routine) - Closed Specialty Diagnoses / Procedures Referred By Referred To Contact Contact Cardiovascular Disease Diagnoses Tachycardia Supraventricular (HCC) Referral ID Status Reason Start Date Expiration Date Visits Requ ested Visits Authorized [id number] Closed 05/26/2021 05/26/2022 1 1 Encounter Details Date Type Department Care Team Description 07/06/2021 Office Visit Department of Meseret Kyle Cardiovascular Medicine AYAKA Parker Supr avenpeytonular ([facility]) in [facility] blayne CJeremieNJeremiePJeremie, M.S.N. (Primary Dx) [address] [place] [address] [address] [place] [phone] Social History Tobacco Use Types Packs/Day Years [...] er 07/18/2021 How often do you attend amish or restorationism services? Never 07/18/2021 Do you belong to any clubs or organizations such as amish N o 07/18/2021 groups, unions, fraternal or [...] at Date Recorded Male 06/01/2020 11:57 AM EARLY INTERVENTION SPECIALIST documented as of this encounter Last Filed Vital Signs Vital Sign Reading Time Taken Comments Blood Pressure 129/82 07/06/2021 1:55 PM EARLY INTERVENTION SPECIALIST Pulse 127 07/06/2021 1:55 PM EARLY INTERVENTION SPECIALIST Temperature - - Respiratory Rate - - Oxygen Saturation - - Inhaled Oxygen Concentration - - Weight 83 kg (182 lb 15.7 oz) 07/06/2021 1:55 PM EARLY INTERVENTION SPECIALIST Height 172 cm (5' 7.72) 07/06/2021 1:55 PM EARLY INTERVENTION SPECIALIST Body Mass Index 28.06 07/06/2021 1:55 PM EARLY INTERVENTION SPECIALIST documented in this encounter Progress Notes Meseret [...] history is well documented in a prior dpg-veio-yf-face visit with Dr. Donald on 05/25/2021. In [...] has followed with Dr. Gonzalez at [facility] who has noted no documented SVT to [...] ??? Kiwi Anaphylaxis ??? [place] Anaphylaxis ??? [place] Flavor Other (see comments) [place] ??? Pineapple Anaphylaxis ??? Ascorbate Calcium-Bioflavonoid Other [...] comments) ??? Lemon Other (see comments) ??? [place] Other (see comments) ??? Multivitamin With Iron,Other Minerals Other (see comments) COLD SORE REACTION TO VARIOUS/NUMEROUS ??? [place] Other (see comments) ??? [place] Other (see comments) ??? Choline Other (see [...] 10 mg by mouth at bedtime. ??? iyjuebbpwknn-Md-fnqe-minerals tablet, Take 1 tablet by mouth as [...] & Screen Expiration 07/09/2021 23:59 Testing Location [place] ASSESSMENT / PLAN #1 Tachycardia Supraventricular (HCC) [...] in for procedurereport time, a map of [facility], the need to have a fuel oil truck driver, typical procedure length and recovery time, post procedure activity and driving limitations, and when to hold food and fluids. Mr. Rainey was advised to make the following changes to medications: None. Mr. 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 Meseret Kyle APRN, C.N.P., M.S.N. 07/06/2021 Y INTERVENTION SPECIALIST documented in this encounter Plan of Treatment Not on filedocumented as of this encounter Visit Diagnoses Diagnosis Tachycardia Supraventricular (HCC) - Bette christ documented in this encounter Additional Health Concerns Infection Onset Date Last Indicated Resolved Time COVID19 Pending 07/06/2021 07/06/2021 07/06/2021 5:05 PM EARLY INTERVENTION SPECIALIST Assessment Noted Time PHQ-9 Depression Total Score: 11 09/09/2015 4:10 PM CD T documented as of this encounter Care Teams Fixture Relamper Relationship Specialty Start Date End Date Elsewhere, Pcp PCP - General Internal Medicine 07/04/21 documented as of this encounter
--- OUTSIDE RECORDS SUMMARY | 2022-04-02 10:53 | XMS_ITS | Clinical Summary ---
:1990 Author Organization [facility] Address [address] [place] [address] Care Team Providers Name Role Phone Elsewhere, Pcp Primary Care Provider Unavailable Source Comments Patient records contain information from all sites at [facility]. For routine questions regarding patient records, call [phone] during business hours, M-F 8:00 AM - 5:00 PM Central Time. Record requests for emergency care only can be directed to [phone] at any time.[facility] Allergies Active Allergy Reactions Severity Noted [...] (see comments) Medium 01/21/2019 Cold so res Cheesh-Na Other (see comments) 03/20/2003 [place] Anaphylaxis High 12/18/2013 [place] Flavor Other (see comments) High 01/12/2021 [place] Multivitamin With Other (see comments) 09/05/2012 CO LD SORE REACTION Iron,Other Minerals TO VARIOUS/NUMEROU S Niacinamide Other (see comments) Medium 01/21/2019 Cold so res [place] Other (see comments) 03/21/2003 Pantothenic Acid Other (see comments) Medium 01/21/2019 Col d sores Pineapple Anaphylaxis High 06/01/2020 Pyridoxine Other (see comments) Medium 01/21/2019 Cold so res Riboflavin (Vitamin B2) Other (see comments) Medium 9 Cold sores [place] Other (see comments) 03/20/2003 Thiamine (Vitamin B1) Other (see comments) Medium 01/21/2019 Cold sores Medications Medication Sig Dispensed Refills Start Date End Date Status llfwombuzkcw-Qc-m Take 1 tablet by 0 03/08/2021 Active [...] How often do you attend sabianist or hinduism services? Never 07/18/2021 Do you [...] at Date Recorded Male 06/01/2020 11:57 AM RESTORATION ECOLOGIST Last Filed Vital Signs Vital Sign Reading Time Taken Comments Blood Pressure 98/43 07/07/2021 12:45 PM RESTORATION ECOLOGIST Pulse 101 07/07/2021 12:45 PM RESTORATION ECOLOGIST Temperature 36.9 ??C (98.5 ??F) 07/07/2021 7:18 AM RESTORATION ECOLOGIST Respiratory Rate 14 02/07/2021 4:14 AM CDT Oxygen Saturation 100% 07/07/2021 12:45 PM RESTORATION ECOLOGIST Inhaled Oxygen Concentration - - Weight 83 kg (182 lb 15.7 oz) 07/06/2021 1:55 PM RESTORATION ECOLOGIST Height 172 cm (5' 7.72) 07/06/2021 1:55 PM RESTORATION ECOLOGIST Body Mass Index 28.06 07/06/2021 1:55 PM RESTORATION ECOLOGIST Plan of Treatment Health Maintenance Due Date [...] ss Type Group BLUE CROSS ANTHEM [place] [id number] 2019-Presen [phone] [address] [address] PPO [facility] [address] [place] [address] Care Teams Dog Handler Relationship Specialty Start Date End Date Elsewhere, Pcp PCP - General Internal Medicine 07/04/21
--- OUTSIDE RECORDS SUMMARY | 2022-04-02 10:53 | XMS_ITS | Encounter Summary ---
:1990 Author Organization [facility] Address [address] [place] [address] Care Team Providers Name Role Phone Elsewhere, Pcp Primary Care Provider Unavailable Reason for Visit Reason Comments Rapid Heart Rate Pt called remote monitoring to talk about his elevated HR Encounter Details Date Type Department Care Team Description 07/03/2021 Documentation RST CCM Vinicius Kaci Rapid Heart Rate (Pt [address] [facility] LAYAKA, C.N.P., called remote [place], [place] M.S.N. monitoring to talk [phone] about his eleva leeann HR) Social History [...] How often do you attend sikh or jainism services? 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 Upon review of monitor per cytotechnologist his highest rate was 147 today in an SVT. Due to pts concern, I contacted this patient at the following phone number: [phone] He reported that he was awake at [...] his BB. Kaci Colvin APRN, C.N.P., M.S.N. [facility] CICU RST [facility] Pager: [phone] (CVICU LMFT) FIT SPECIALIST Rodrigo Donald M.D., Ph.D. - 07/03/2021 9:04 [...] not unreasonable to take a prn dose FIT SPECIALIST documented in this encounter Plan of Treatment Not on filedocumented as of this encounter Visit Diagnoses Not on filedocumented in this encounter Additional Health Concerns Assessment Noted Time PHQ-9 Depression Total Score: 11 09/09/2015 4:10 PM CD T documented as of this encounter Care Teams Die Setter Relationship Specialty Start Date End Date Elsewhere, Pcp PCP - General Internal Medicine 07/04/21 documented as of this encounter
--- OUTSIDE RECORDS SUMMARY | 2022-04-02 10:53 | XMS_ITS | Encounter Summary ---
:1990 Author Organization [facility] Address [address] [place] [address] Care Team Providers Name Role Phone Elsewhere, Pcp Primary Care Provider Unavailable Reason for Referral Outpatient (Routine) - Closed Specialty Diagnoses / Procedures Referred By Contact Refer red To Contact Diagnoses Tachycardia Supraventricular (HCC) Rodrigo Gray V. [facility] Procedures Echo Transthoracic (TTE) Karley, Ph.D. [address] [place] [phone] Referral ID Status Reason Start Date Expiration Date Visits Requ ested Visits Authorized [id number] Closed 05/26/2021 05/26/2022 1 1 SPERSON Reason for Visit Outpatient (Routine) - Closed Specialty Diagnoses / Procedures Referred By Contact Refer red To Contact Diagnoses Tachycardia Supraventricular (HCC) Rodrigo Gray V. [facility] Procedures Echo Transthoracic (TTE) Karley, Ph.D. [address] [place] [phone] Referral ID Status Reason Start Date Expiration Date Visits Requ ested Visits Authorized [id number] Closed 05/26/2021 05/26/2022 1 1 Encounter Details Date Type Department Care Team Description 07/06/2021 Hospital Department of [place], Tachycardia Encounter Cardiovascular Rodrigo Arias Supraventr icular (HCC) Diseases in Karley, Ph.D. [place], [place] 200 [facility] 200 [place] [phone] Social History Tobacco Use Types Packs/Day Years [...] How often do you attend methodist or jehovah's witness services? 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 [id number] Take 1 tablet by mouth 0 -minerals [...] Tachycardia Results for this DOPPLER COLOR AM WARDSPERSON Supraventricular (HCC) proc edure are in the results section. documented in this encounter Results (TTE) 2D ECHO DOPPLER COLOR (07/06/2021 8:49 AM WARDSPERSON) [facility] gist Method Time Signature Ejection Fraction 55 [...] / / Volume Laterality 07/06/2021 7:40 AM WARDSPERSON Impressions 07/06/2021 2:57 PM WARDSPERSON LEFT VENTRICLE:Normal left ventricular chamber size. Normal [...] Order-L evel Documents. Narrative 07/06/2021 2:57 PM WARDSPERSON For the complete report, see the Order-Level [...] original. For the complete report, see the CytRx-L Loop App Documents. Final Impressions 1. Normal left ventricular [...] COVID19 Pending 07/06/2021 07/06/2021 07/06/2021 5:05 PM WARDSPERSON Assessment Noted Time PHQ-9 Depression Total Score: 11 09/09/2015 4:10 PM CD T documented as of this encounter Care Teams Money Counter Relationship Specialty Start Date End Date Elsewhere, Pcp PCP - General Internal Medicine 07/04/21 documented as of this encounter
--- OUTSIDE RECORDS SUMMARY | 2022-04-02 10:53 | XMS_ITS | Encounter Summary ---
:1990 Author Organization [facility] Address [address] [place] [address] Care Team Providers Name Role Phone Elsewhere, Pcp Primary Care Provider Unavailable Reason for Referral Outpatient (Routine) - Closed Specialty Diagnoses / Procedures Referred By Contact Refer red To Contact Diagnoses Tachycardia Supraventricular (HCC) Rodrigo Gray V., [facility] Procedures ECG Ambulatory Real Time Cardiac Monitoring Karley, Ph.D. [address] [place] [address] Referral ID Status Reason Start Date Expiration Date Visits Requ ested Visits Authorized [id number] Closed 08/08/2021 08/08/2022 1 1 ER EEL SPEAR Reason for Visit Outpatient (Routine) - Closed Specialty Diagnoses / Procedures Referred By Contact Refer red To Contact Diagnoses Tachycardia Supraventricular (HCC) Rodrigo Gray V., [facility] Procedures ECG Ambulatory Real Time Cardiac Monitoring Karley, Ph.D. [address] [place], [place] [phone] Referral ID Status Reason Start Date Expiration Date Visits Requ ested Visits Authorized [id number] Closed 08/08/2021 08/08/2022 1 1 Encounter Details Date Type Department Care Team Description 08/08/2021 Hospital Division of [place], Tachycardia Encounter Cardiovascular Rodrigo Arias Supraventr icular (HCC) Diseases in Karley, Ph.D. [place], [place] [address] [facility] [address] [place] [phone] Social History Tobacco Use Types Packs/Day Years [...] How often do you attend zoroastrian or scientology services? 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 [id number]-Ux-tazz Take 1 tablet by mouth 0 -minerals [...] Duration 0 sec duration INFOBIONIC MOME [employer] [place] 0% percent INFOBIONIC MOME [place] Runs 0 count INFOBIONIC MOME SVT Runs 0 count INFOBIONIC MOME Symptom Count 136 count INFOBIONIC MOME Specimen (Source) Anatomical Collection Method Collection Time Re ceived Time Location / / Volume Laterality 08/09/2021 7:23 AM FISHER EEL SPEAR Narrative INFOBIONIC MOME - 09/20/2021 8:25 AM [...] rate varied from 74 to 170 BPM. Shipboard Intelligence Analyst: PANCHO Wiggins/ PANCHO Lee Procedure Note Bernabe [...] rate varied from 74 to 170 BPM. Shipboard Intelligence Analyst: PANCHO Wiggins/ PANCHO Lee Rodrigo Gray M.D., Ph.D. CV CARDIAC SERVICE S PROCEDURES Performing Organization Address City/State/ZIP Code Phon e Number INFOBIONIC MOME INFOBIONIC MOME NA documented in this encounter Visit Diagnoses Diagnosis Tachycardia Supraventricular (HCC) documented in this encounter Additional Health Concerns Assessment Noted Time PHQ-9 Depression Total Score: 11 09/09/2015 4:10 PM CD T documented as of this encounter Care Teams Office Automation Clerk Relationship Specialty Start Date End Date Elsewhere, Pcp PCP - General Internal Medicine 07/04/21 documented as of this encounter
--- OUTSIDE RECORDS SUMMARY | 2022-04-02 10:53 | XMS_ITS | Encounter Summary ---
:1990 Author Organization [facility] Address [address] [place] [address] Care Team Providers Name Role Phone Elsewhere, Pcp Primary Care Provider Unavailable Encounter Details Date Type Department Care Team Description 07/06/2021 Hospital Department of [place], Tachycardia Encounter Laboratory Rodrigo Arias Supraventric ulflorencia ([facility]) Medicine and Karley, Ph.D. Pathology, [place] [address] [place] [address], in [facility] [phone] [place] [phone] [place] [address] (Work) [place] [address] Social History Tobacco Use Types [...] How often do you attend denominational or christianity services? 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 [id number]-[id number] Take 1 tablet by mouth 0 -minerals [...] Tachycardia Results for this DIFFERENTIAL, B AM CLEAT FEEDER Supraventricular (HCC) pr ocedure are in the results section. TYPE AND SCREEN Routine 07/06/2021 11:10 Tachycardia Results for this AM CLEAT FEEDER Supraventricular (HCC) proce dure are in the results section. BASIC METABOLIC Routine 07/06/2021 11:09 Tachycardia Results for this PANEL, S/P AM CLEAT FEEDER Supraventricular (HCC) proce dure are in the results section. documented in this encounter Results Type and Screen (with reflex Antibody ID) (07/06/2021 11:10 AM CLEAT FEEDER) [facility] Method Time Signature ABORh A Pos Not 07/06/2021 ETRM applicable 12:04 PM CLEAT FEEDER Antibody Negative Negative 07/06/2021 ETRM Screen 12:15 PM CLEAT FEEDER Type & Screen 07/09/2021 07/06/2021 ETRM Expiration 23:59 12:04 PM CLEAT FEEDER Testing [place] DEFAULT 07/06/2021 ETRM Location 11:28 AM CLEAT FEEDER Specimen Anatomical Collection Method Collection Time Receive d Time (Source) Location / / Volume Laterality Blood (Blood, 07/06/2021 11:10 07/06/2021 Venous) AM CLEAT FEEDER 11:28 AM CLEAT FEEDER Rodrigo Gray M.D., Ph.D. LAB BLOOD BANK ANGELLA T ORDERABLES Performing Organization Address City/State/ZIP Code Phon e Number [facility] - [address] [place], [place] [address] [facility] [place] [address] [facility] [address] (ABNORMAL) CBC without Differential (07/06/2021 11:10 AM CLEAT FEEDER) [facility] Method Time Signature Hemoglobin 16.2 13.2 - 07/06/2021 DTL 16.6 g/dL 11:53 AM CLEAT FEEDER Hematocrit 48.5 38.3 - 07/06/2021 DTL 48.6 % 11:53 AM CLEAT FEEDER Erythrocytes 5.49 4.35 - 07/06/2021 DTL 5.65 11:53 AM CLEAT FEEDER x10(12)/L MCV 88.3 78.2 - 07/06/2021 DTL 97.9 fL 11:53 AM CLEAT FEEDER RBC Distrib Width 12.1 11.8 - 07/06/2021 DTL 14.5 % 11:53 AM CLEAT FEEDER Platelet Count 236 135 - 317 07/06/2021 DTL x10(9)/L 11:53 AM CLEAT FEEDER Leukocytes 9.9 (H) 3.4 - 9.6 07/06/2021 DTL x10(9)/L 11:53 AM CLEAT FEEDER Specimen Anatomical Collection Method Collection Time Receive d Time (Source) Location / / Volume Laterality Blood (Blood, 07/06/2021 11:10 07/06/2021 Venous) AM CLEAT FEEDER 11:45 AM CLEAT FEEDER Rodrigo Gray M.D., Ph.D. LAB BLOOD ADD-ON Performing Organization Address City/State/ZIP Code Phon e Number [facility] - 200 [place], [place] [address] [facility] [place] [place] [address] [facility] [address] [facility] Basic Metabolic Panel (07/06/2021 11:09 AM CLEAT FEEDER) P athologist Signature Potassium, S 4.7 3.6 - 5.2 07/06/2021 DTL mmol/L 12:20 PM CLEAT FEEDER Sodium, S 143 135 - 145 07/06/2021 DTL mmol/L 12:20 PM CLEAT FEEDER Chloride, S 103 98 - 107 07/06/2021 DTL mmol/L 12:20 PM CLEAT FEEDER Bicarbonate, S 28 22 - 29 07/06/2021 DTL mmol/L 12:20 PM CLEAT FEEDER Anion Gap 12 7 - 15 07/06/2021 DTL 12:20 PM CLEAT FEEDER BUN (Blood Urea 8 8 - 24 07/06/2021 DTL Nitrogen), S mg/dL 12:20 PM CLEAT FEEDER Creatinine 0.98 0.74 - 07/06/2021 DTL 1.35 mg/dL 12:20 PM CLEAT FEEDER eGFR-Non >90 >=60 07/06/2021 DTL Black/ mL/min/BSA 12:20 PM CLEAT FEEDER [place] Comment: ----ADDITIONAL INFORMATION---- Estimated GFR calculated using the 2009 CKD_EPI creatinine equation. eGFR-Black/ >90 >=60 mL/min/BSA 2021 12:20 PM CLEAT FEEDER DTL Comment: ----ADDITIONAL INFORMATION---- Estimated GFR calculated using the 2009 CKD_EPI creatinine equation. Calcium, Total, S 9.7 8.6 - 10.0 mg/dL 07/06/2021 12:2 0 PM CLEAT FEEDER DTL Glucose, S 99 70 - 140 mg/dL 07/06/2021 12:20 PM CLEAT FEEDER DTL Specimen Anatomical Collection Method Collection Time Receive d Time (Source) Location / / Volume Laterality Blood (Blood, 07/06/2021 11:09 07/06/2021 Venous) AM CLEAT FEEDER 11:56 AM CLEAT FEEDER Rodrigo Gray M.D., Ph.D. LAB BLOOD ADD-ON Performing Organization Address City/State/ZIP Code Phon e Number [facility] - [address] [place], [place] [address] [facility] [place] [place] [address] [facility] [address] documented in this encounter Visit Diagnoses Diagnosis Tachycardia Supraventricular (HCC) documented in this encounter Additional Health Concerns Infection Onset Date Last Indicated Resolved Time COVID19 Pending 07/06/2021 07/06/2021 07/06/2021 5:05 PM CLEAT FEEDER Assessment Noted Time PHQ-9 Depression Total Score: 11 09/09/2015 4:10 PM CD T documented as of this encounter Care Teams Email Marketing Executive Relationship Specialty Start Date End Date Elsewhere, Pcp PCP - General Internal Medicine 07/04/21 documented as of this encounter
--- OUTSIDE RECORDS SUMMARY | 2022-04-02 10:53 | XMS_ITS | Encounter Summary ---
:1990 Author Organization [facility] Address [address] [place] [address] Care Team Providers Name Role Phone Unavailable Primary Care Provider Unavailable Reason for Visit Reason Comments Medication Question Encounter Details Date Type Department Care Team Description 06/14/2021 Clinical Department of Sh[place], Medication Communication Cardiovascular Rodrigo Arias, Question Medicine in M.D., Ph.D. [place], [place] [address] [place] [address] [address] [place] [address] [phone] Social History Tobacco Use Types Packs/Day Years [...] er 07/18/2021 How often do you attend evangelical or anglican services? 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 Y PROCESSOR Telephone Encounter - Sameera Luong - 06/14/2021 3:04 PM CST SUBJECTIVE CHIEF COMPLAINT / REASON FOR CALL Medication Question Name of caller: Mr. Luisito Rainey (patient) Patient expects communication via portal: No Phone number: [phone] (he may be at work and unable [...] any change is needed for his Corlanor Y PROCESSOR documented in this encounter Plan of Treatment Not on filedocumented as of this encounter Visit Diagnoses Not on filedocumented in this encounter Additional Health Concerns Assessment Noted Time PHQ-9 Depression Total Score: 11 09/09/2015 4:10 PM CD T documented as of this encounter
--- OUTSIDE RECORDS SUMMARY | 2022-04-02 10:53 | XMS_ITS | Encounter Summary ---
:1990 Author Organization [facility] Address [address] [place] [address] Care Team Providers Name Role Phone Unavailable Primary Care Provider Unavailable Reason for Visit Reason Comments Baseline Encounter Details Date Type Department Care Team Description 06/14/2021 Clinical Department of [place], Baseline Communication Cardiovascular Rodrigo Arias, Medicine in [place], Karley, Ph. D. [address] [place] [phone] Social History Tobacco Use Types Packs/Day Years [...] er 07/18/2021 How often do you attend buddhist or quaker services? 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
--- OUTSIDE RECORDS SUMMARY | 2022-04-02 10:53 | XMS_ITS | Encounter Summary ---
:1990 Author Organization [facility] Address 200 [place] [address] Care Team Providers Name Role Phone Elsewhere, Pcp Primary Care Provider Unavailable Encounter Details Date Type Department Care Team Description 07/04/2021 Clinical Communication Department of Nakul Tsang Cardiovascular Medicine Kilo Johnson in [facility] [phone] 200 [facility] (Work) [place] [address] Social History Tobacco Use Types Packs/Day Years [...] How often do you attend jew or taoism services? 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 documented as of this encounter Miscellaneous Notes [...] not unreasonable to take a prn dose ARTIST documented in this encounter Plan of Treatment Not on filedocumented as of this encounter Visit Diagnoses Not on filedocumented in this encounter Additional Health Concerns Infection Onset Date Last Indicated Resolved Time COVID19 Pending 07/06/2021 07/06/2021 07/06/2021 5:05 PM SIGN ARTIST Assessment Noted Time PHQ-9 Depression Total Score: 11 09/09/2015 4:10 PM CD T documented as of this encounter Care Teams County Coroner Relationship Specialty Start Date End Date Elsewhere, Pcp PCP - General Internal Medicine 07/04/21 documented as of this encounter
--- OUTSIDE RECORDS SUMMARY | 2022-04-02 10:53 | XMS_ITS | Encounter Summary ---
:1990 Author Organization [facility] Address [address] [place] [address] Care Team Providers Name Role Phone Elsewhere, Pcp Primary Care Provider Unavailable Reason for Visit Auth/Cert Specialty Diagnoses / Procedures Referred By Contact Refer red To Contact Diagnoses Tachycardia Supraventricular (HCC) Procedures PA EP EVAL W SUPRAVENT ABLATE DIAGNOSTIC EPS ABLATION - SVT Referral ID Status Reason Start Date Expiration Date Visits Requ ested Visits Authorized [id number] 1 1 Encounter Details Date Type Department Care Team Description 07/07/2021 Anesthesia Event Division of Cardiovascular Alex Mauro in [facility], WELLNESS DIRECTOR, STEAM TABLE WORKER [place] [address] [address] [facility] [address] [place] [id number] Anesthesia Record Procedure Summary Procedure Name Responsible Anesthesiologist Anesthesia Start Ti me Anesthesia Stop Time DIAGNOSTIC EPS Yee Mauro, AYAKA, 07/07/21 0801 07/07 1107 STEAM TABLE WORKER Events Date Time Event Comment 07/07/2021 0801 An Start Machine/Equipmen t Checked Infection Precautions Foll owed Procedure/Site Verified NPO Sta tus Verified Supine Standard ASA Mon itors Applied 0833 Turnover to Proceduralist 0838 Proc Start 1054 Proc Fin 1057 Turnover to ANE Staff 1057 an stop data 1107 An End I completed my h andoff to the receiving staff during [facility] we 1. Identified the patient 2. Ident [...] 1,000 units/mL injection 7,000 Units heparin standard 89017 Units/250 mL in 0.45 % Sodium C [...] How often do you attend faith or yazdanism services? Never 07/18/2021 Do you [...] at Date Recorded Male 06/01/2020 11:57 AM POLICY ADVISER documented as of this encounter OR Notes Anesthesia Postprocedure Evaluation - Yee Mauro APRN, CRNA - 07/07/2021 11:35 AM CST Patient: Luisito Rainey Procedure Summary Date: 07/07/21 Room / Location: [facility] HRS 110 / RST [facility] Anesthesia Start: 800 Anesthesia Stop: Procedure: DIAGNOSTIC [...] Post Op nausea/vomiting: none Hydration status: euvolemic CY ADVISER Anesthesia Preprocedure Evaluation - Yee Mauro APRN, [...] Pre-op diagnosis: Tachycardia Supraventricular (HCC) [I47.1] Location: [facility] 110 / RST [facility] Surgeons: Rodrigo Gray M.D., Ph.D. Pertinent components [...] with patient /legal guardian or through an translator/interpreter. Risks/Benefits/Alternatives of Blood transfusion discussed with patient / legal guardian, including an opportunity to ask questions and/or decline some or all transfusion therapies. The patient / legalguardian consented to the use of all blood products, as deemed medically necessary Approval to Proceed: approved for anesthesia CY ADVISER Anesthesia Procedure Notes - Yee Mauro APRN, [...] yes Complications - arterial: none ATTESTATION STATEMENT CY ADVISER documented in this encounter Plan of Treatment Not on filedocumented as of this encounter Procedures Procedure Name Priority Date/Time Associated Diagnosis Comme nts LDA ANE ARTERIAL Routine 07/07/2021 8:25 AM Resul ts for this LINE INSERTION POLICY ADVISER procedure are in the results section. PA ARTL CATH/CNULA Routine 07/07/2021 8:25 AM Res ults for this MONITOR PERC POLICY ADVISER procedure are i n the results section. documented in this encounter Results PA ARTL CATH/CNULA MONITOR PERC, LDA ANE ARTERIAL LINE INSERTION (07/07/2021 8:25 AM POLICY ADVISER) Narrative Yee Mauro APRN, CRNA - 2021 8:25 AM POLICY ADVISER Yee Mauro APRN, CRNA ? 07/07/2021 ??8:35 [...] caffeine-sodium benzoate injection Given 07/07/2021 9:52 AM POLICY ADVISER 250 mg intravenous, As needed, Starting on Sat07/07/21 at 0919, Anesthesia Intra-op Given 07/07/2021 9:19 AM POLICY ADVISER 250 mg clindamycin in D5W IVPB (CLEOCIN) Given 07/07/2021 8:29 AM POLICY ADVISER 900 mg intravenous, Administer over 30 Minutes, As needed, Starting on Sat07/07/21 at 0829, Anesthesia Intra-op fentaNYL injection (SUBLIMAZE) Given 07/07/2021 10:37 AM POLICY ADVISER 25 mcg intravenous, As needed, Starting on Sat07/07/21 at 1037, Anesthesia Intra-op heparin (porcine) 1,000 unit/mL Given 07/07/2021 10:12 AM POLICY ADVISER 1, 000 Units injection intravenous, As needed, Starting on Sat07/07/21 at 0901, Anesthesia Intra-op Given 07/07/2021 9:44 AM POLICY ADVISER 1,000 Units Given 07/07/2021 9:01 AM POLICY ADVISER 5,000 Units heparin (porcine) 100 Rate/Dose 07/07/2021 18 Units/kg/hr 14.94 Units/mL in NaCl 0.45% 250 Change 10:12 AM POLICY ADVISER mL/hr mL infusion intravenous, Continuous Infusion: Per Instructions PRN, Starting on Sat07/07/21 at 0903, Anesthesia Intra-op Rate/Dose Change 07/07/2021 9:43 AM POLICY ADVISER 15 Units/kg/hr 12.45 mL/hr New Bag 07/07/2021 9:03 AM POLICY ADVISER 12 Units/kg/hr 9.96 mL/hr isoproterenol 4 mcg/mL in NaCl Restarted 07/07/2021 10:25 0.1 mc g/kg/min 124.5 mL/hr 0.9% 250 mL infusion (ISUPREL) AM POLICY ADVISER intravenous, Continuous Infusion: Per Instructions PRN, Starting on Sat07/07/21 at 0939, Anesthesia Intra-op Rate/Dose Change 07/07/2021 10:15 AM POLICY ADVISER 0.1 mcg/kg/min 124.5 mL/hr Rate/Dose Change 07/07/2021 10:08 AM POLICY ADVISER 0.05 mcg/kg/min 62.25 mL/h r lactated ringers New Bag 07/07/2021 8:01 AM POLICY ADVISER intravenous, Continuous Infusion: Per Instructions PRN, Starting on Sat07/07/21 at 0801, Anesthesia Intra-op lactated ringers New Bag 07/07/2021 8:25 AM POLICY ADVISER intravenous, Continuous Infusion: Per Instructions PRN, Starting on Sat07/07/21 at 0825, Anesthesia Intra-op lidocaine (PF) (cardiac) injection Given 07/07/2021 10:40 AM POLICY ADVISER 80 mg intravenous, As needed, Starting on Sat07/07/21 at 1040, Anesthesia Intra-op midazolam (PF) injection (VERSED) Given 07/07/2021 10:58 AM POLICY ADVISER 2 mg intravenous, As needed, Starting on Sat07/07/21 at 1035, Anesthesia Intra-op Given 07/07/2021 10:35 AM POLICY ADVISER 2 mg phenylephrine 80 mcg/mL in Rate/Dose 07/07/2021 9:50 1.2 mcg/kg/min 74.7 mL/hr NaCl 0.9% 250 mL infusion Change AM POLICY ADVISER intravenous, Continuous Infusion: Per Instructions PRN, Starting on Sat07/07/21 at 0845, Anesthesia Intra-op Rate/Dose Change 07/07/2021 9:46 AM POLICY ADVISER 1 mcg/kg/min 62.25 mL/hr Rate/Dose Change 07/07/2021 9:45 AM POLICY ADVISER 0.9 mcg/kg/min 56.025 mL/hr propofol 10 mg/mL infusion Rate/Dose 07/07/2021 100 mcg/kg/min 49.8 mL/hr (DIPRIVAN) Change 10:43 AM POLICY ADVISER intravenous, Continuous Infusion: Per Instructions PRN, Starting on Sat07/07/21 at 0808, Anesthesia Intra-op Restarted 07/07/2021 10:40 AM POLICY ADVISER 75 mcg/kg/min 37.35 mL/hr Rate/Dose Change 07/07/2021 9:36 AM POLICY ADVISER 50 mcg/kg/min 24.9 mL/hr propofol bolus from bag (DIPRIVAN) Given 07/07/2021 10:43 AM POLICY ADVISER 25 mg intravenous, As needed, Starting on Sat07/07/21 at 0807, Anesthesia Intra-op Given 07/07/2021 10:39 AM POLICY ADVISER 50 mg Given 07/07/2021 8:19 AM POLICY ADVISER 50 mg protamine injection Given 07/07/2021 10:39 AM POLICY ADVISER 20 mg intravenous, As needed, Starting on Sat07/07/21 at 1037, Anesthesia Intra-op Given 07/07/2021 10:38 AM POLICY ADVISER 10 mg Given 07/07/2021 10:37 AM POLICY ADVISER 10 mg documented in this encounter Additional Health Concerns Assessment Noted Time PHQ-9 Depression Total Score: 11 09/09/2015 4:10 PM CD T documented as of this encounter Care Teams Heel Seater Relationship Specialty Start Date End Date Elsewhere, Pcp PCP - General Internal Medicine 07/04/21 documented as of this encounter
--- OUTSIDE RECORDS SUMMARY | 2022-04-02 10:53 | XMS_ITS | Encounter Summary ---
:1990 Author Organization [facility] Address [address] [place] [address] Care Team Providers Name Role Phone Elsewhere, Pcp Primary Care Provider Unavailable Encounter Details Date Type Department Care Team Description 07/06/2021 Hospital Department of [place], Tachycardia Encounter Radiology, [place] Rodrigo Arias Supravent ricular (HCC) dakota Daniel M.D., Ph.D. [place], [address] [place] [address] [place] [phone] [place], [place] [phone] (Work) [phone] Social History Tobacco Use Types Packs/Day Years [...] How often do you attend denominational or hinduism services? Never 07/18/2021 Do you [...] at Date Recorded Male 06/01/2020 11:57 AM PATIENT REGISTRATION SUPERVISOR documented as of this encounter Medications [...] mouth at 0 03/01/20 21 tablet bedtime. advtragpsina-[id number]-jiwz Take 1 tablet by mouth 0 -minerals [...] AND LATERAL 2 (most inpatients 10:50 AM PATIENT REGISTRATION SUPERVISOR Supraventricular (HC C) this procedure VIEWS and all are in the outpatients) results section. documented in this encounter Results DX Chest AP or PA and Lateral 2 Views (07/06/2021 10:50 AM PATIENT REGISTRATION SUPERVISOR) Anatomical Region Laterality Modality Chest, Thoracic RST LOS, Thoracic ARZ LOS, Thoracic N/A Digital Radiography FLA LOS Specimen (Source) Anatomical Collection Method Collection Time Re ceived Time Location / / Volume Laterality 07/06/2021 10:52 AM PATIENT REGISTRATION SUPERVISOR Impressions 07/06/2021 11:36 AM PATIENT REGISTRATION SUPERVISOR No change since 02/19/2021. Negative [facility]lie [facility]. ?? Narrative 07/06/2021 11:36 AM PATIENT REGISTRATION SUPERVISOR EXAM: ??DX CHEST AP OR PA [...] COVID19 Pending 07/06/2021 07/06/2021 07/06/2021 5:05 PM PATIENT REGISTRATION SUPERVISOR Assessment Noted Time PHQ-9 Depression Total Score: 11 09/09/2015 4:10 PM CD T documented as of this encounter Care Teams Aircraft Landing Gear Inspector Relationship Specialty Start Date End Date Elsewhere, Pcp PCP - General Internal Medicine 07/04/21 documented as of this encounter
--- OUTSIDE RECORDS SUMMARY | 2022-04-02 10:53 | XMS_ITS | Encounter Summary ---
:[address] [facility] Address [address] [place] [address] Care Team Providers Name Role Phone Elsewhere, Pcp Primary Care Provider Unavailable Reason for Visit Reason Comments Remote Patient Monitoring Disconnected Monitor Encounter Details Date Type Department Care Team Description 06/12/2021 Clinical Department of [place], Remote Patient Communication Cardiovascular [place] in [place], Ph.D. (Disconnected [place], [place] [address] [facility] Monitor) [address] [place] [address] [phone] Social History Tobacco Use Types Packs/Day Years [...] How often do you attend scientology or baptist services? Never 07/18/2021 Do you [...] at Date Recorded Male 06/01/2020 11:57 AM CERTIFIED PHYSICIAN ASSISTANT documented as of this encounter Miscellaneous Notes [...] to this notification or call us at [phone] ([phone]) IFIED PHYSICIAN ASSISTANT documented in this encounter Plan of Treatment Not on filedocumented as of this encounter Visit Diagnoses Not on filedocumented in this encounter Additional Health Concerns Infection Onset Date Last Indicated Resolved Time COVID19 Pending 07/06/2021 07/06/2021 07/06/2021 5:05 PM CERTIFIED PHYSICIAN ASSISTANT Assessment Noted Time PHQ-9 Depression Total Score: 11 09/09/2015 4:10 PM CD T documented as of this encounter Care Teams Guest Services Lead Relationship Specialty Start Date End Date Elsewhere, Pcp PCP - General Internal Medicine 07/04/21 documented as of this encounter
--- OUTSIDE RECORDS SUMMARY | 2022-04-02 10:53 | XMS_ITS | Encounter Summary ---
:1990 Author Organization [facility] Address [address] [place] [address] Care Team Providers Name Role Phone Elsewhere, Pcp Primary Care Provider Unavailable Reason for Visit Reason Comments Results Encounter Details Date Type Department Care Team Description 07/07/2021 Clinical Department of Marina, Results Communication Cardiovascular Rodrigo Arias, Medicine in [place], Ph. D. [address] [place] [address] [phone] Social History Tobacco Use Types Packs/Day Years [...] How often do you attend advent or worship services? 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 - 07/07/2021 5:[address] Donald said he would call Mr. Rainey to discuss further. ET HEATER OPERATOR Telephone Encounter - Sameera Luong - 07/07/2021 3:56 PM CST SUBJECTIVE CHIEF COMPLAINT / REASON FOR CALL Results Name of caller: Luisito Rainey (patient) Patient expects communication via portal: No Phone number: [phone] Test Results Goal or summary: Mr. Rainey [...] case. He would appreciate a callback YASSINE ET HEATER OPERATOR documented in this encounter Plan of Treatment Not on filedocumented as of this encounter Visit Diagnoses Not on filedocumented in this encounter Additional Health Concerns Assessment Noted Time PHQ-9 Depression Total Score: 11 09/09/2015 4:10 PM CD T documented as of this encounter Care Teams Job Printer Apprentice Relationship Specialty Start Date End Date Elsewhere, Pcp PCP - General Internal Medicine 07/04/21 documented as of this encounter
--- OUTSIDE RECORDS SUMMARY | 2022-04-02 10:53 | XMS_ITS | Encounter Summary ---
:1990 Author Organization [facility] Address [address] [place] [address] Care Team Providers Name Role Phone Elsewhere, Pcp Primary Care Provider Unavailable Reason for Visit Auth/Cert Specialty Diagnoses / Procedures Referred By Contact Refer red To Contact Diagnoses Tachycardia Supraventricular (HCC) Procedures IL EP EVAL W SUPRAVENT ABLATE DIAGNOSTIC EPS ABLATION - SVT Referral ID Status Reason Start Date Expiration Date Visits Requ ested Visits Authorized [id number] 1 1 Encounter Details Date Type Department Care Team Description 07/07/2021 Surgery Division of Cardiovascular MarinaCleo hall DIAGNOSTIC EPS Diseases in Juana Diaz M.D., Ph.D. [place] [address] [place] [address] [place] [address] [phone] Social History Tobacco Use Types Packs/Day Years [...] at Date Recorded Male 06/01/2020 11:57 AM PARTNER MANAGER documented as of this encounter Last Filed Vital Signs Vital Sign Reading Time Taken Comments Blood Pressure 98/43 07/07/2021 12:45 PM PARTNER MANAGER Pulse 101 07/07/2021 12:45 PM PARTNER MANAGER Temperature 36.9 ??C (98.5 ??F) 07/07/2021 7:18 AM PARTNER MANAGER Respiratory Rate - - Oxygen Saturation 100% 07/07/2021 12:45 PM PARTNER MANAGER Inhaled Oxygen Concentration - - Weight - - Height - - Body Mass Index - - documented in this encounter Discharge Instructions Discharge InstructionsFYanna prescott - 07/07/2021 12:26 PM CST You were discharged from the [facility] CVD Interventional/Heart Rhythm Service. Please [...] 4:00 p.m., contact the Electrophysiology Service at [phone]. For questions occurring after business hours, on weekends, nights, or holidays call [phone] and ask for Electrophysiology Correctional Security Officer. Heart Failure Assessment: Weigh yourself at the [...] avoid/skip your follow-up appointments, they are important! NER MANAGER documented in this encounter Medications at Time [...] mouth at 0 03/01/20 21 tablet bedtime. nqwfishjuvgr-Rg-tbgg Take 1 tablet by mouth 0 -minerals [...] instructions were reviewed in detail as per [id number] with patient and family and they verbalized understanding. Follow up appointment is arranged. Patient was dismissed when discharge criteria was met, accompanied byfriendAll questions answered. NER MANAGER documented in this encounter Plan of Treatment Not on filedocumented as of this encounter Procedures Procedure Name Priority Date/Time Associated Diagnosis Comme nts ECG Routine 07/07/2021 11:37 Results for this AM PARTNER MANAGER procedure are i n the results section. HEART RHYTHM Routine 07/07/2021 10:57 Tachycardia Results for this PROCEDURE AM PARTNER MANAGER Supraventricular (HCC) proce dure are in the results section. ACT, POCT, B Routine 07/07/2021 10:45 Results for this AM PARTNER MANAGER procedure are i n the results section. ACT, POCT, B Routine 07/07/2021 10:07 Results for this AM PARTNER MANAGER procedure are i n the results section. ACT, POCT, B Routine 07/07/2021 9:40 Results for this AM PARTNER MANAGER procedure are i n the results section. ACT, POCT, B Routine 07/07/2021 9:22 Results for this AM PARTNER MANAGER procedure are i n the results section. ABG AND LYTES Routine 07/07/2021 9:19 Results for this EG6+, POCT, B AM PARTNER MANAGER procedure are in the results section. documented in this encounter Results ECG 12 Lead (07/07/2021 11:37 AM PARTNER MANAGER) P athologist Signature Ventricular Rate 92 BPM MUSE ECG/Min [place] Interval 144 ms MUSE QRSD Interval 90 ms MUSE QT Interval 346 ms MUSE QTC Interval 427 ms MUSE P [place] 51 degrees MUSE R [place] -3 degrees MUSE T Wave [place] 43 degrees MUSE Specimen Anatomical Collection Method Collection Time Receive d Time (Source) Location / / Volume Laterality 07/07/2021 11:37 07/07/2021 AM PARTNER MANAGER 11:38 AM PARTNER MANAGER Impressions MUSE - 07/07/2021 11:38 AM PARTNER MANAGER Normal sinus rhythm Normal ECG When compared [...] MUSE NA DIAGNOSTIC EPS (07/07/2021 10:57 AM PARTNER MANAGER) Anatomical Region Laterality Modality X-Ray Angiography Specimen (Source) Anatomical Collection Method Collection Time Re ceived Time Location / / Volume Laterality 07/07/2021 8:38 AM PARTNER MANAGER Narrative 07/07/2021 11:38 AM PARTNER MANAGER For the complete report, see the Order-L [...] (Activated Clotting Time), POCT (07/07/2021 10:45 AM PARTNER MANAGER) P athologist Signature Activated 114 84 - 139 07/07/2021 PCSM Clotting Time, sec 10:52 AM PARTNER MANAGER POCT Specimen Anatomical Collection Method Collection Time Receive d Time (Source) Location / / Volume Laterality Blood 07/07/2021 10:45 07/07/2021 AM PARTNER MANAGER 10:53 AM PARTNER MANAGER Unknown Provider LAB POCT ORDERABLES - DEVICE Performing Organization Address City/State/ZIP Code Phon e Number POC RST [facility] INPATIENT [address] [place], [place] [address] LABS PCSM [facility] [place] [address] [place] POC [address] (ABNORMAL) ACT (Activated Clotting Time), POCT (07/07/2021 10:07 AM PARTNER MANAGER) P athologist Signature Activated 211 (H) 84 - 139 07/07/2021 PCSM Clotting Time, sec 10:16 AM PARTNER MANAGER POCT Specimen Anatomical Collection Method Collection Time Receive d Time (Source) Location / / Volume Laterality Blood 07/07/2021 10:07 07/07/2021 AM PARTNER MANAGER 10:17 AM PARTNER MANAGER Unknown Provider LAB POCT ORDERABLES - DEVICE Performing Organization Address City/State/ZIP Code Phon e Number POC [facility]ST [facility] IN[facility] [address] [place], [place] [address] [place] [address] [place] POC [address] (ABNORMAL) ACT (Activated Clotting Time), POCT (07/07/2021 9:40 AM PARTNER MANAGER) P athologist Signature Activated 211 (H) 84 - 139 07/07/2021 PCSM Clotting Time, sec 9:49 AM PARTNER MANAGER POCT Specimen Anatomical Collection Method Collection Time Receive d Time (Source) Location / / Volume Laterality Blood 07/07/2021 9:40 AM 2 9:49 PARTNER MANAGER AM PARTNER MANAGER Unknown Provider LAB POCT ORDERABLES - DEVICE Performing Organization Address City/[facility]/ZIP [facility] Phon e Number POC [facility]IENT [address] [place], [place] [address] [place] [address] [place] [facility]OC [address] (ABNORMAL) ACT (Activated Clotting Time), POCT (07/07/2021 9:22 AM PARTNER MANAGER) P athologist Signature Activated 216 (H) 84 - 139 07/07/2021 PCSM Clotting Time, sec 9:33 AM PARTNER MANAGER POCT Specimen Anatomical Collection Method Collection Time Receive d Time (Source) Location / / Volume Laterality Blood 07/07/2021 9:22 AM 2 9:33 PARTNER MANAGER AM PARTNER MANAGER Unknown Provider LAB POCT ORDERABLES - DEVICE Performing Organization Address City/State/ZIP Code Phon e Number POC [facility] [address] [place], [place] [address] [place] [address] [place] [facility] [address] (ABNORMAL) ABG and Lytes, POCT (07/07/2021 9:19 AM PARTNER MANAGER) P athologist Signature Sample Site, Artline 07/07/2021 PCLX POCT 9:33 AM PARTNER MANAGER Comment: ----ADDITIONAL INFORMATION---- Performed at the Point of Care pH, POCT 7.34 (L) 7.35 - 7.45 07/07/2021 9:33 AM PARTNER MANAGER PCLX Comment: ----ADDITIONAL INFORMATION---- Performed at the Point of Care pCO2, POCT 51 (H) 35 - 48 mm Hg 07/07/2021 9:33 AM PARTNER MANAGER PC LX Comment: ----ADDITIONAL INFORMATION---- Performed at the Point of Care pO2, POCT 151 (H) 83 - 108 mm Hg 07/07/2021 9:33 AM PARTNER MANAGER PC LX Comment: ----ADDITIONAL INFORMATION---- Performed at the Point of Care Base, POCT 2 -2 - 3 mmol/L 07/07/2021 9:33 AM PARTNER MANAGER PC LX Comment: ----ADDITIONAL INFORMATION---- Performed at the Point of Care HCO3, POCT 28 (H) 22 - 26 mmol/L 07/07/2021 9:33 AM PARTNER MANAGER P CLX Comment: ----ADDITIONAL INFORMATION---- Performed at the Point of Care Sodium, POCT, B 140 135 - 145 mmol/L 07/07/2021 9:33 A M PARTNER MANAGER PCLX Comment: ----ADDITIONAL INFORMATION---- Performed at the Point of Care Potassium, POCT, B 3.5 (L) 3.6 - 5.2 mmol/L 07/07/2021 9:3 3 AM PARTNER MANAGER PCLX Comment: ----ADDITIONAL INFORMATION---- Performed at the Point of Care Hematocrit, POCT, B 41.0 38.3 - 48.6 % 07/07/2021 9:33 AM PARTNER MANAGER PCLX Comment: ----ADDITIONAL INFORMATION---- Performed at the Point of Care Specimen Anatomical Collection Method Collection Time Receive d Time (Source) Location / / Volume Laterality Blood 07/07/2021 9:19 AM 9:33 PARTNER MANAGER AM PARTNER MANAGER Unknown Provider LAB POCT ORDERABLES - DEVICE Performing Organization Address City/State/ZIP Code Phon e Number [facility] [address] [place] [address] PCLX [facility] [place] [address] [place] [facility] [address] documented in this [...] 120 mg (CARDIZEM Given 07/07/2021 2:46 PM PARTNER MANAGER 120 mg CD/CARTIA XT) 120 mg, oral, Once, On Sat07/07/21 at 1430, For 1 dose, PACU (only), Swallow whole. Do NOT crush, chew or open capsule. erythromycin 5 mg/gram (0.5 %) ophthalmic Given 07/07/2021 2:46 PM PARTNER MANAGER 1 cm ointment 1 cm (ROMYCIN) 1 [...] (1 %) injection Given 07/07/2021 10:46 AM PARTNER MANAGER 10 mL Bilateral (XYLOCAINE) As needed, Starting on Sat07/07/21 at 0838, Intraprocedure (CV) Given 07/07/2021 8:39 AM PARTNER MANAGER 10 mL Right Groin Given 07/07/2021 8:38 AM PARTNER MANAGER 10 mL Left Groin LORazepam (ATIVAN) 1 mg tablet - ADS Ove rride Pull Starting on Sat07/07/21 at 1148, For 1 dose, Created b y cabinet override LORazepam tablet 1 mg (ATIVAN) Given 07/07/2021 12:25 PM PARTNER MANAGER 1 mg 1 mg, oral, Once, On Sat07/07/21 at 1145, For 1 dose, PACU (only) nicotine polacrilex (NICORETTE) 2 mg gum - ADS Override Pull Starting on Sat07/07/21 at 1147, For 1 dose, Created b y cabinet override nicotine polacrilex gum 4 mg (NICORETTE) Given 07/07/2021 12:26 PM PARTNER MANAGER 4 mg 4 mg, buccal, Every 1 [...] Recently Administered Medications Times are shown in PARTNER MANAGER. Scheduled Medication Order 07/05/2021 07/06/2021 07/07/2021 dilTIAZem [...] Nellie Peralta R.N.)1046 (Given - Provider: Polly RsosN. - Comment: groins) As needed, Starting on [...] documented as of this encounter Care Teams Instantizer Operator Relationship Specialty Start Date End Date Elsewhere, Pcp PCP - General Internal Medicine 07/04/21 documented as of this encounter
--- OUTSIDE RECORDS SUMMARY | 2022-04-02 10:54 | XMS_ITS | Encounter Summary ---
:[address] [facility] Address [address] [place] [address] Care Team Providers Name Role Phone Unavailable Primary Care Provider Unavailable Reason for Visit Appointment Request (Routine) - Closed Specialty Diagnoses / Procedures Referred By Referred To Contact Contact Cardiovascular Disease Diagnoses Tachycardia Supraventricular (HCC) Referral ID Status Reason Start Date Expiration Date Visits Requ ested Visits Authorized [id number] Closed 04/03/2021 04/03/2022 1 1 Encounter Details Date Type Department Care Team Description 05/25/2021 Virtual Visit Department of Marina, Tachycardia Cardiovascular Rodrigo Arias, Supraventr icular ([facility]) Medicine in M.D., Ph.D. (Primary Dx) [place], [place] [address] [place] [address] [address] [place] [phone] Social History Tobacco Use Types Packs/Day Years [...] How often do you attend yazidism or protestant services? 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 - 05/25/2021 3:00 PM CST SUBJECTIVE REASON FOR CONSULT SVT. HISTORY OF PRESENT ILLNESS This is a deb-ovyd-gr-face visit done in the setting [place] [address] according to [facility] institutional guidelines. This was done via telephone [...] palpitations. He has been treated up in [place] with Corlanor as well as 75 mg [...] Donald M.D., Ph.D. 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
--- OUTSIDE RECORDS SUMMARY | 2022-04-02 10:54 | XMS_ITS | Encounter Summary ---
:1990 Author Organization [facility] Address [address] [place] [address] Care Team Providers Name Role Phone Unavailable Primary Care Provider Unavailable Encounter Details Date Type Department Care Team Description 10/05/2020 Orders Only [facility] Sa rubina Lancaster M.D. [address] [place], [place] [phone] (Wo rk) Social History [...] How often do you attend restorationism or mandaen services? Never 07/18/2021 Do you [...] or slept in a snf (including now)? 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
--- OUTSIDE RECORDS SUMMARY | 2022-04-02 10:54 | XMS_ITS | Encounter Summary ---
:[address] [facility] Address [address] [place] [address] Care Team Providers Name Role Phone Unavailable [...] er 07/18/2021 How often do you attend pentecostal or islam services? Never 07/18/2021 Do you belong to any clubs or organizations such as pentecostal N o 07/18/2021 groups, unions, fraternal or [...] slept in a senior care (including now)? 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
--- OUTSIDE RECORDS SUMMARY | 2022-04-02 10:54 | XMS_ITS | Encounter Summary ---
:1990 Author Organization [facility] Address [address] [place] [address] Care Team Providers Name Role Phone Unavailable Primary Care Provider Unavailable Reason for Visit Reason Comments Self Referral Communication Encounter Details Date Type Department Care Team Description 04/07/2021 Clinical Department of Sap Business Analyst Self Referral Communication Cardiovascular , Karley Mills (Communicati on) Medicine in [place], [place] [address] [place] [address] Social History Tobacco Use Types Packs/Day Years [...] How often do you attend synagogue or catholic services? 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 Requesting Dr. Gray. Updated CE. Can you please let us know the urgency of this request? Thank you, Anny WORKER Telephone Encounter - Lacy Palencia - 04/07/2021 2:46 PM CDT RAFFY PAR will let us know when we are okay to schedule. Telephone Encounter - Winston Mckeon R.N. - 04/07/2021 9:42 AM CDT Images from the original note were not included. [facility]' Nurse Chart Review: [...] Completed Testing: ??? ECG from 03/02/2021: ??? Holter/Composition Stone Applicator from 11/13/2020: ??? CXR from 02/19/21: ??? [...] Intervals Study State Underlying Rhythm Cycle Length GA PA AH HV QRS [place] QRS Morphology Baseline NSR 781 161 ?? [...] See Anesthesia Note Total Flouro Time: 0 SKEIN TIER Total Flouro Dose: 0 mGy ??? EP Study 12/13/2020- Consent & Monroe Protocol Monroe protocol was followed. ??TIME OUT conducted just [...] Intervals Study State Underlying Rhythm Cycle Length GA PA AH HV QRS [place] QRS Morphology Baseline NSR 688 129 ?? [...] mg twice daily), but since admission to [facility] recently the beta-terrence therapy will [...] 09:51 AM To: Rst Cvd Osm Hrs ([place]) Priority: Routine Routing Comments: ??Have they had [...]
--- OUTSIDE RECORDS SUMMARY | 2022-04-02 10:54 | XMS_ITS | Encounter Summary ---
:1990 Author Organization [facility] Address [address] [place] [address] Care Team Providers Name Role Phone Unavailable [...] How often do you attend presybeterian or church services? 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
--- OUTSIDE RECORDS SUMMARY | 2022-04-02 10:54 | XMS_ITS | Encounter Summary ---
:1990 Author Organization [facility] Address [address] [place] [address] Care Team Providers Name Role Phone Unavailable [...] How often do you attend moravian or quaker services? 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
--- OUTSIDE RECORDS SUMMARY | 2022-04-02 10:54 | XMS_ITS | Encounter Summary ---
:1990 Author Organization [facility] Address [address] [place] [address] Care Team Providers Name Role Phone Elsewhere, Pcp Primary Care Provider Unavailable Reason for Referral Outpatient (Routine) - Closed Specialty Diagnoses / Procedures Referred By Contact Refer red To Contact Diagnoses Tachycardia Supraventricular (HCC) Rodrigo Gray [facility] Procedures Echo Transthoracic (TTE) Karley, Ph.D. [address] [place] [phone] Referral ID Status Reason Start Date Expiration Date Visits Requ ested Visits Authorized [id number] Closed 05/26/2021 05/26/2022 1 1 utpatient (Routine) - Closed Specialty Diagnoses / Procedures Referred By Contact Refer red To Contact Diagnoses Tachycardia Supraventricular (HCC) Rodrigo Gray [facility] Procedures ECG 12 Lead Karley, Ph.D. [address] [place] [phone] Referral ID Status Reason Start Date Expiration Date Visits Requ ested Visits Authorized [id number] Closed 05/26/2021 05/26/2022 1 1 FITTER Encounter Details Date Type Department Care Team Description 05/26/2021 Clinical Communication Department of Lorin Rodriguez Cardiovascular Medicine Aidee, Kilo in [facility] [address] [facility] [address] [place] [phone] Social History Tobacco Use Types Packs/Day Years [...] How often do you attend sabianist or restoration services? 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 FITTER Telephone Encounter - Jessica Mcgarry - 07/06/2021 7:43 AM CST Forms have been received and emailed to [employer] for completion. FITTER Telephone Encounter - Sachin Ghosh R.N. - [...] following references were used: nursing clinical judgement FITTER Telephone Encounter - Shakira Cerrato - 06/14/2021 1:50 PM CST This is scheduled, PAG Mailed. Robert Rosenberg FITTER Telephone Encounter - Lorin Rodriguez R.N. - 05/26/2021 12:28 PM SKIN FITTER Contacted Luisito TJeremie Rainey regarding the scheduling for their EPS +/- AVNRT ablation. Mr. Rainey was referred by Dr. Gray for this procedure. Had virtual visit with Dr. Gray 05/25/2021- [id number] score of 0 Pre-procedure Appointment: 07/06/2021- COVID testing before noon and rest of testing after COVDI testing- will need FTF visit with HEAT TREAT SUPERVISOR as well. Pre-Procedure Testing Ordered: labs including Type and screen, CXR , Echo and COVID tesitng Pre-Procedure Testing Completed:labs 03/19/2021 GFR >560,TSH 1.62 02/19/2021 Case Urgency:elective-SDD current orders active in EMR Procedure Date: 07/07/2021 Procedure: EPS +/- AVNRT redo with Dr. Gray Calling In for your Report Time: The night before the procedure, please call the [facility] Service Line ([phone]) or the [facility] Backup Line ([phone]) between 7pm and midnight to find out what time to arrive. This automated phone line will have you type in your [facility] Number (#) and birthdate () to determine your arrival time. On the day of your procedure: Check into [facility] 4th Floor (east elevators) at the [facility] 4D desk. Youdo not need to [...] to either live within 100 miles of [place], [place] or spend the night in [place], [place] postprocedure. If you live within 100 miles and live greater than 30 minutes outside of [place], [place]); it is highly recommended that you spend the night in [place], [place]. ??? If you experience any complications or have questions post procedure overnight, please call the [facility] Application Supervisor at: [phone] and ask for [facility]. Theywill connect you to the on-call provider to assist you further. ??? You will receive sedation for your procedure, so an adult driver/merchandiser and supervision is required for24 hours after [...] free to reach out to us at [phone]. ??? If you have any concerns or questions regarding your schedule, please contact the scheduling team at [phone]. ??? If you have any concerns or questions about your insurance or procedure coverage please contact our business office at [phone]. COVID Screening Questions: 1. Do you, anyone [...] vaccinated with booster Testing Information: ?? Location: [facility] in the [facility]. ?? If your Covid nasal swab is positive, we will contact you to reschedule your procedure. ?? If your Covid tests are not resulted in time for your procedure, expect your procedure to be postponed or rescheduled to a later date. [facility] Specific Instructions: ?? We encourage you to check [email or web address] for more information as these instructions may change before your procedural date. ?? Must wear a mask at ALL times while on [facility] [place] (except for when eating or showering). ?? [...] notify your care teams at [facility] if you develop COVID like symptoms prior to your appointments or procedures as your appointment or procedure may need to be modified. The patient verbalized understanding and agreement with instructions. All questions were answered. FITTER documented in this encounter Plan of Treatment Not on filedocumented as of this encounter Results ECG 12 Lead (07/06/2021 11:26 AM SKIN FITTER) P athologist Signature Ventricular Rate 86 BPM MUSE ECG/Min [place] Interval 136 ms MUSE QRSD Interval 86 ms MUSE QT Interval 342 ms MUSE QTC Interval 409 ms MUSE P Foster 41 degrees MUSE R Foster 3 degrees MUSE T Wave Foster 34 degrees MUSE Specimen Anatomical Collection Method Collection Time Receive d Time (Source) Location / / Volume Laterality 07/06/2021 11:26 07/06/2021 AM SKIN FITTER 11:29 AM SKIN FITTER Impressions MUSE - 07/06/2021 11:29 AM SKIN FITTER Normal sinus rhythm Normal ECG When compared [...] (with reflex Antibody ID) (07/06/2021 11:10 AM SKIN FITTER) [facility] Live Calendars Method Time Signature ABORh A Pos Not 07/06/2021 ETRM applicable 12:04 PM SKIN FITTER Antibody Negative Negative 07/06/2021 ETRM Screen 12:15 PM SKIN FITTER Type & Screen 07/09/2021 07/06/2021 ETRM Expiration 23:59 12:04 PM SKIN FITTER Testing Emily DEFAULT 07/06/2021 ETRM Location 11:28 AM SKIN FITTER Specimen Anatomical Collection Method Collection Time Receive d Time (Source) Location / / Volume Laterality Blood (Blood, 07/06/2021 11:10 07/06/2021 Venous) AM SKIN FITTER 11:28 AM SKIN FITTER Rodrigo Gray M.D., Ph.D. LAB BLOOD BANK ANGELLA T ORDERABLES Performing Organization Address City/State/ZIP Code Phon e Number [facility] - [address] [place], [place] [address] [facility] [place] [address] Laboratories-[facility] [address] (ABNORMAL) CBC without Differential (07/06/2021 11:10 AM SKIN FITTER) [facility] Live Calendars Method Time Signature Hemoglobin 16.2 13.2 - 07/06/2021 DTL 16.6 g/dL 11:53 AM SKIN FITTER Hematocrit 48.5 38.3 - 07/06/2021 DTL 48.6 % 11:53 AM SKIN FITTER Erythrocytes 5.49 4.35 - 07/06/2021 DTL 5.65 11:53 AM SKIN FITTER x10(12)/L MCV 88.3 78.2 - 07/06/2021 DTL 97.9 fL 11:53 AM SKIN FITTER RBC Distrib Width 12.1 11.8 - 07/06/2021 DTL 14.5 % 11:53 AM SKIN FITTER Platelet Count 236 135 - 317 07/06/2021 DTL x10(9)/L 11:53 AM SKIN FITTER Leukocytes 9.9 (H) 3.4 - 9.6 07/06/2021 DTL x10(9)/L 11:53 AM SKIN FITTER Specimen Anatomical Collection Method Collection Time Receive d Time (Source) Location / / Volume Laterality Blood (Blood, 07/06/2021 11:10 07/06/2021 Venous) AM SKIN FITTER 11:45 AM SKIN FITTER Rodrigo Gray M.D., Ph.D. LAB BLOOD ADD-ON Performing Organization Address City/State/ZIP Code Phon e Number [facility] - [address] [place], [place] [address] [facility] [place] [place] [address] Laboratories-[facility] 200 [facility] Basic Metabolic Panel (07/06/2021 11:09 AM SKIN FITTER) P athologist Signature Potassium, S 4.7 3.6 - 5.2 07/06/2021 DTL mmol/L 12:20 PM SKIN FITTER Sodium, S 143 135 - 145 07/06/2021 DTL mmol/L 12:20 PM SKIN FITTER Chloride, S 103 98 - 107 07/06/2021 DTL mmol/L 12:20 PM SKIN FITTER Bicarbonate, S 28 22 - 29 07/06/2021 DTL mmol/L 12:20 PM SKIN FITTER Anion Gap 12 7 - 15 07/06/2021 DTL 12:20 PM SKIN FITTER BUN (Blood Urea 8 8 - 24 07/06/2021 DTL Nitrogen), S mg/dL 12:20 PM SKIN FITTER Creatinine 0.98 0.74 - 07/06/2021 DTL 1.35 mg/dL 12:20 PM SKIN FITTER eGFR-Non >90 >=60 07/06/2021 DTL Black/ mL/min/BSA 12:20 PM SKIN FITTER Lebanese Comment: ----ADDITIONAL INFORMATION---- Estimated GFR calculated using the 2009 CKD_EPI creatinine equation. eGFR-Black/ >90 >=60 mL/min/BSA 2021 12:20 PM SKIN FITTER DTL Comment: ----ADDITIONAL INFORMATION---- Estimated GFR calculated using the 2009 CKD_EPI creatinine equation. Calcium, Total, S 9.7 8.6 - 10.0 mg/dL 07/06/2021 12:2 0 PM SKIN FITTER DTL Glucose, S 99 70 - 140 mg/dL 07/06/2021 12:20 PM SKIN FITTER DTL Specimen Anatomical Collection Method Collection Time Receive d Time (Source) Location / / Volume Laterality Blood (Blood, 07/06/2021 11:09 07/06/2021 Venous) AM SKIN FITTER 11:56 AM SKIN FITTER Rodrigo Gray M.D., Ph.D. LAB BLOOD ADD-ON Performing Organization Address City/State/ZIP Code Phon e Number [facility] - [address] [place], [place] [address] [facility] [place] [place] [address] Laboratories[facility] [address] DX Chest AP or PA and Lateral 2 Views (07/06/2021 10:50 AM SKIN FITTER) Anatomical Region Laterality Modality Chest, Thoracic RST LOS, Thoracic ARZ LOS, Thoracic N/A Digital Radiography FLA LOS Specimen (Source) Anatomical Collection Method Collection Time Re ceived Time Location / / Volume Laterality 07/06/2021 10:52 AM SKIN FITTER Impressions 07/06/2021 11:36 AM SKIN FITTER No change since 02/19/2021. Negative [facility] ?? Narrative 07/06/2021 11:36 AM SKIN FITTER EXAM: ??DX CHEST AP OR PA AND LATERAL 2 VIEWS Procedure Note Gato Conway M.D. - 07/06/2021Formatt ing of this note might be different from the original. EXAM: DX CHEST AP OR PA AND LATERAL 2 EWS IMPRESSION: No change since 02/19/2021. Negative [facility]. Rodrigo Gray M.D., Ph.D. IMG DIAGNOSTIC SANDHYA GING PROCEDURES SARS CoV-2 RNA, PCR, Varies Asymptomatic (07/06/2021 10:42 AM SKIN FITTER) [facility] Method Time Signature SARS CoV-2 Swab, 07/06/2021 DTL RNA, PCR, Nasopharynx 5:04 PM SKIN FITTER Source SARS CoV-2 Undetected Undetected 07/06/2021 DTL RNA, PCR 5:04 PM SKIN FITTER Comment: SARS-CoV-2 RNA absent. This result does [...] Drug Administration an d is used per magisterial district judge's instructions. Performance characteristics were verified by [facility] in a manner consistent with CLIA requirements. Visit the CDC website: https://www.cdc.g ov/coronavirus/ for the most recent guidelines on Coron avirus testing. Fact Sheet for Healthcare Providers: https://www.fda.gov/media/003964/downloa d Fact Sheet for Patients: https://www.fda.gov/media/064928/downloa d Specimen Anatomical Collection Method Collection Time Receive d Time (Source) Location / / Volume Laterality Varies 07/06/2021 10:42 07/06/2021 (Nasopharynx) AM SKIN FITTER 11:47 AM SKIN FITTER Rodrigo Gray M.D., Ph.D. LAB MICROBIOLOGY - GENERAL ORDERABLES Performing Organization Address City/State/ZIP Code Phon e Number [facility] - [address] [place], [place] [address] [facility] [place] [place] [address] [facility] [address] (TTE) 2D ECHO DOPPLER COLOR (07/06/2021 8:49 AM SKIN FITTER) [facility] Method Time Signature Ejection Fraction [...] / / Volume Laterality 07/06/2021 7:40 AM SKIN FITTER Impressions 07/06/2021 2:57 PM SKIN FITTER LEFT VENTRICLE:Normal left ventricular chamber size. Normal [...] For the complete report, see the Order-L Per[place]o Documents. Narrative 07/06/2021 2:57 PM SKIN FITTER For the complete report, see the Order-Level [...] original. For the complete report, see the FDTEK-Replenish Documents. Final Impressions 1. Normal left ventricular [...] COVID19 Pending 07/06/2021 07/06/2021 07/06/2021 5:05 PM SKIN FITTER Assessment Noted Time PHQ-9 Depression Total Score: 11 09/09/2015 4:10 PM CD T documented as of this encounter Care Teams Model Maker Scale Relationship Specialty Start Date End Date Elsewhere, Pcp PCP - General Internal Medicine 07/04/21 documented as of this encounter
--- OUTSIDE RECORDS SUMMARY | 2022-04-02 10:54 | XMS_ITS | Encounter Summary ---
:1990 Author Organization [facility] Address [address] [place] [address] Care Team Providers Name Role Phone Unavailable [...] How often do you attend adventism or orthodox services? Never 07/18/2021 Do you belong [...] or slept in a usp (including now)? 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
== END 2022-03-30 16:07 | disposition home or self-care (01) ==
LOC: AMB 04-02 10:50
PROVIDERS: PCP Family Medicine; Visit Provider Emergency Medicine Emergency Medical Services
DX: R07.89 Other chest pain (principal)
CPT/HCPCS: A0425; A0427

== ENCOUNTER 2022-03-30 16:24 | Emergency (ER) | payer BC, SELFPAY ==
[2022-03-30 16:27] VITALS: BP 123/78; PULSE 79; RESP 20; TEMP 36.9; O2SAT 97; BMI 24.6
[2022-03-30 16:33] VITALS: PULSE 78; O2SAT 95
[2022-03-30 16:34] VITALS: BP 123/78; PULSE 82; O2SAT 94
[2022-03-30 16:35] VITALS: PULSE 78; O2SAT 96
--- NOTE | 2022-03-30 16:45 | ED.CHESTPAIN ---
HPI - Chest Pain General Chief Complaint: Chest Pain Stated Complaint: Chest pain Time Seen by Provider: 03/30/22 16:25 History of Present Illness HPI narrative: Old male comes in reporting left anterior chest and rib pain that began a couple days. He states that he lifts heavy items at work but does not recount any particular injury event her certain strenuous activity to bring about this pain. The pain is worse when taking a deep breath and with certain movements. He also can reproduce the pain by pressing in this area. He does not report any nausea, vomiting, lightheadedness, shortness of breath, or diaphoresis. He does not have any exercise intolerance. Related Data Home Medications Medication Instructions Recorded Confirmed metoprolol tartrate 25 mg tablet 25 mg PO QDAY 01/04/22 03/27/22 Previous Rx's Medication Instructions Recorded diltiazem HCl 120 mg 120 mg PO BID #180 caps 12/07/21 capsule,extended release 12 hr sertraline 100 mg tablet 100 mg PO DAILY #90 tabs 12/07/21 lorazepam 0.5 mg tablet 0.5 mg PO QDAY PRN benzo 01/09/22 withdrawal #5 tabs gabapentin 300 mg capsule 300 mg PO BID #60 caps 02/07/22 gabapentin 600 mg tablet 600 mg PO BID #60 tabs 02/07/22 gabapentin 300 mg capsule 300 - 900 mg PO BID #180 caps 03/13/22 acetaminophen 300 mg-codeine 30 mg 1 tab PO Q6H PRN pain #20 tabs 03/30/22 tablet Allergies Allergy/AdvReac Type Severity Reaction Status Date / Time rosalva Allergy Severe Throat Verified 03/27/22 09:45 closes up pineapple Allergy Intermediate lips swell Verified 03/27/22 09:45 ascorbic acid Allergy Mild cold sores Verified 03/27/22 09:45 inositol Allergy Mild Cold sores Verified 03/27/22 09:45 lemon oil Allergy Mild Cold sores Verified 03/27/22 09:45 niacinamide Allergy Mild Cold sores Verified 03/27/22 09:45 pantothenic acid Allergy Mild Cold sores Verified 03/27/22 09:45 pyridoxine Allergy Mild Cold sores Verified 03/27/22 09:45 riboflavin (vitamin B2) Allergy Mild Cold sores Verified 03/27/22 09:45 thiamine (vitamin B1) Allergy Mild Cold sores Verified 03/27/22 09:45 cephalexin Allergy Unknown Nausea and Verified 03/27/22 09:45 vomiting Bioflavonoids / grape seed Allergy Mild Cold sores Uncoded 03/27/22 09:45 extract Choline Allergy Mild cold sores Uncoded 03/27/22 09:45 Lemon Flavor Allergy Mild Cold sores Uncoded 03/27/22 09:45 Vitamin B12 Allergy Mild Cold sores Uncoded 03/27/22 09:45 Review of Systems Status of ROS Reports: 10 or more systems reviewed and unremarkable except as noted in History and below Narrative Constitutional: No fevers, no weight gain or loss. Eyes: No discharge. No vision changes. HENT: No congestion, no sore throat, no ear pain. Cardiovascular: No palpitations. Chest: Left anterior lower rib described above. Respiratory: No shortness of breath, no wheezes, no cough. Gastrointestinal: No abdominal pain, no vomiting, no diarrhea. Genitourinary: No dysuria, no hematuria. Musculoskeletal: Normal range of motion. Skin: No rashes, no pruritis. Neurological: No dizziness, weakness, sensory change, speech change. Endo/Heme/Allergies: No bruising or bleeding. No polydipsia. Pysch: no suicidality, no anxiety, no insomnia. All other systems reviewed and are negative. PFSH PFSH Medical History Anxiety disorder (07/23/12) Attention deficit disorder (07/23/12) Benzodiazepine abuse Depression (07/23/12) Gastroesophageal reflux disease History of bipolar disorder (09/08/12) History of suicidal ideation (09/08/12) Insomnia Palpitations Supraventricular tachycardia Tobacco use (07/23/12) Surgical History History of radiofrequency ablation (RFA) procedure for cardiac arrhythmia (05/26/19) Family History Mother Jcayw-Fvktiukzp-Rqjpa (WPW) syndrome Social History (Updated 03/27/22 @ 09:37 by Felicitas Tabor CMA) Narrative: current chewing tobacco use Smoking Status: Never smoker Do you use any of these nicotine containing products: Smokeless Tobacco Second hand tobacco smoke exposure: No How often do you have a drink containing alcohol: never How often do you have six or more drinks on one occasion: Never AUDIT-C Alcohol total score: 0 Non-prescribed substance use: denies use Little interest or pleasure in doing things: nearly every day Feeling down, depressed, or hopeless: nearly every day service: No Exam Narrative Exam Narrative: Constitutional: Well-developed, well-nourished, no acute distress. HEENT: Normocephalic, atraumatic. Neck: Normal range of motion. Nontender. Supple. Heart: Regular. No murmurs. Normal rate. Intact distal pulses. Lungs: Clear to auscultation. No wheezes, rhonchi, or rales. Chest: Distinct pain is reproduced when palpating in the is in when taking a deep breath. He grimaces with pain when sitting up from a laying position. Abdomen: Normal bowel sounds. Nontender. No rebound tenderness. Genitalia: Deferred. Back: No midline tenderness. Normal range of motion. Extremities: Normal range of motion. No injury. Skin: Intact. No rash. Warm. No erythema or pallor. Neurologic: No altered sensation. No weakness. Alert and oriented. Psychiatric: No suicidality. No anxiety or depression. No insomnia. Nursing notes and vitals signs are reviewed. Const Vital Signs, click to edit/add: Vital Signs - 24 hr 03/30/22 16:27 03/30/22 16:33 03/30/22 16:34 Temperature 98.4 F Pulse Rate 78 82 Pulse Rate [Pulse Oximeter] 79 Respiratory Rate 20 Blood Pressure 123/78 Blood Pressure [Left Upper Arm] 123/78 Pulse Oximetry 97 95 94 Oxygen Delivery Method Room Air Course Vital Signs Vital signs: Initial Vital Signs Temperature 98.4 F 03/30/22 16:27 Temperature Source Temporal Artery Scan 03/30/22 16:27 Pulse Rate 79 03/30/22 16:27 Respiratory Rate 20 03/30/22 16:27 Blood Pressure 123/78 03/30/22 16:27 Blood Pressure Mean 93 03/30/22 16:27 Blood Pressure Position Supine 03/30/22 16:27 Pulse Oximetry 97 03/30/22 16:27 Oxygen Delivery Method 03/30/22 16:27 Vital Signs Temperature 98.4 F 03/30/22 16:27 Pulse Rate 79 03/30/22 16:27 Respiratory Rate 20 03/30/22 16:27 Blood Pressure 123/78 03/30/22 16:27 Pulse Oximetry 97 03/30/22 16:27 Oxygen Delivery Method 03/30/22 16:27 Temperature 98.4 F 03/30/22 16:27 Pulse Rate 82 03/30/22 16:34 Respiratory Rate 20 03/30/22 16:27 Blood Pressure 123/78 03/30/22 16:34 Pulse Oximetry 94 03/30/22 16:34 Oxygen Delivery Method 03/30/22 16:27 MDM - Chest Pain MDM Narrative Medical decision making narrative: This patient comes in with left lower anterior rib this pain is distinctly reproducible and rather certain maneuvers including taking a deep breath. He does not report any specific injury event but does lift heavy objects routinely at work. I did evaluate heart is with bedside ultrasound and saw normal findings. This was reassuring to the patient who received a tablet of Tylenol 3 here in a gray for the same. He also received a rib belt. Discharge Plan Discharge Clinical Impression: Chest wall pain Patient Disposition: Home, Self-Care Condition: Stable Additional Instructions: Take medication as needed and indicated. Wear rib belt as needed. Follow up with MD or return if worsening. Prescriptions: New acetaminophen-codeine 300-30 mg tablet 1 tab PO Q6H PRN (Reason: pain) Qty: 20 0RF No Action diltiazem HCl 120 mg capsule,extended release 12 hr 120 mg PO BID Qty: 180 1RF sertraline 100 mg tablet 100 mg PO DAILY Qty: 90 1RF metoprolol tartrate 25 mg tablet 25 mg PO QDAY lorazepam 0.5 mg tablet 0.5 mg PO QDAY PRN (Reason: benzo withdrawal) Qty: 5 0RF gabapentin 600 mg tablet 600 mg PO BID Qty: 60 5RF gabapentin 300 mg capsule 300 mg PO BID Qty: 60 5RF gabapentin 300 mg capsule 300 - 900 mg PO BID Qty: 180 1RF Follow Up/Referrals: Tomi Crystal MD [Primary Care Provider] - Stand Alone Forms: [facility] Info Instructions Procedures Ultrasound Other exam #1: Anatomical areas examined: Heart and lungs. Indications: Chest wall pain. Exam type: focused emergency ultrasound Description/findings: No sign of abnormality. No evidence of pneumothorax. No sign of rib fracture. Normal heart rate and rhythm. No pericardial effusion. Impression: Exam of heart and lungs.
--- OUTSIDE RECORDS SUMMARY | 2022-03-30 16:48 | XMS_ITS | Encounter Summary ---
:1990 Author Organization [facility] Address [address] [place] [address] Care Team Providers Name Role Phone No Ref-Primary, Physician Primary Care Provider [phone] Encounter Details Date Type Department Care Team Description 03/19/2021 Documentation Only INTERFACED REPORT Unknown, Provider Social History Tobacco Use Types Packs/Day Years Used Date Smoking Tobacco: Never Assessed Sex Assigned at Date Recorded [...] on filedocumented in this encounter Care Teams Telephone Repairer Relationship Specialty Start Date End Date No Ref-Primary, Physician PCP - General 03/15/21 documented as of this encounter
--- OUTSIDE RECORDS SUMMARY | 2022-03-30 16:48 | XMS_ITS | Encounter Summary ---
:1990 Author Organization [facility] Address [address] [place] [address] Care Team Providers Name Role Phone No Ref-Primary, Physician Primary Care Provider [phone] Encounter Details Date Type Department Care Team [...] on filedocumented in this encounter Care Teams First Responder Relationship Specialty Start Date End Date No Ref-Primary, Physician PCP - General 03/15/21 documented as of this encounter
--- OUTSIDE RECORDS SUMMARY | 2022-03-30 16:48 | XMS_ITS | Clinical Summary ---
:1990 Author Organization [facility] Address [address] [place] [address] Care Team Providers Name Role Phone No Ref-Primary, Physician Primary Care Provider [phone] Allergies Active Allergy Reactions Severity Noted [...] 1990 ANNUAL REVIEW OF HM ORDERS 1991 YEARLY PREVENTIVE VISIT 1990 HIV SCREENING 09/11/2006 HEPATITIS C SCREENING 09/11/2009 [...] Additional history exists MENINGITIS IMMUNIZATION Aged Out 12/24/2006 No longe r eligible based on patient 's age to complete this topic Pneumococcal Vaccine: Aged Out No longer eligible Pediatrics (0 to 5 Years) based on patient's age and At-Risk Patients (6 to to co mplete this topic 64 Years) Insurance Payer Benefit Plan / Subscriber ID Effective Dates Phone Addre ss Type Group BCBS BCBS OUT OF [id number] 2020-Present [phone] [address] [address] [place] [address] Care Teams Plumber Apprentice Relationship Specialty Start Date End Date No Ref-Primary, Physician PCP - General 03/15/21
--- OUTSIDE RECORDS SUMMARY | 2022-03-30 16:48 | XMS_ITS | Clinical Summary ---
:1990 Author Organization [facility] [place] [address] Care Team Providers Name Role Phone Tomi [...] - Follow up Cold so res needed [place] Other - Describe In 03/20/2003 Comment Field [place] Anaphylaxis High 12/18/2013 Foraker Flavor Other - Describe In High 01/12/2021 [place] Comment Field, [place] *Unknown - Follow up needed Multivitamin With Other - Describe In 09/05/2012 COL D SORE REACTION Iron,Other Minerals Comment Field TO VARIOUS/NUMEROU S Niacinamide Other - Describe In Medium 01/21/2019 Cold sor es Comment Field, Cold sores *Unknown - Follow up needed [place] Other - Describe In 03/21/2003 Comment Field [...] Cold sores *Unknown - Follow up needed [place] Other - Describe In 03/20/2003 Comment Field [...] 11/16/2008 Depressive disorder, not elsewhere classified 08/19/19 09 Conduct disorder, adolescent onset type 08/18/2008 Immunizations Name Administration Dates Next Due DTP [...] wt on same day) for 08/19/2020 08/20/2019, 11/0 12/2018, age 18+ 09/24/2016 COVID-19 vaccine series (4 - 07/18/2021 05/23/2021, 021, Booster for Pfizer series) 10/25/2020 Depression screening for age 12+ 01/24/2022 01/24/2021, , 01/20/2021, Additional history exists Influenza for age 9-49 02/08/2022 02/13/2017, 04/14/2009, 04/11/2009, Additional history exists Tetanus booster 07/18/2028 07/18/2018, 06/11/2013, 02/13/2005, Additional history exists Tdap Completed 07/18/2018, 06/11/2013 Results Not on filefrom Last 3 Months Insurance Payer Benefit Plan / Subscriber ID Effective Dates Phone Addre ss Type Group BLUE CROSS BLUE CROSS OF [id number] 2019-Present [address] [address] [place] [address] Trun[employer]Show Occ Health/Myrna Self 06/10/2000 OR ANILA TREE [place] (Home) DEPT [id number] Mario NealIlwaco [phone] [facility] Tristan LOPEZ (Work) [place] CABALLERO [id number] Advance Directives Documents on File Type Date Recorded Patient Cardiac Surgeon Explanati on Healthcare Directive 05/26/2019 12:00 AM 9 Latest Code Status on File Code Status Date Activated Date Inactivated Comments Full Code 12/13/2020 4:25 PM 12/13/2020 11:04 PM Code Status Discussion: Discussed Full Code 05/26/2019 9:20 AM 05/27/2019 1:03 PM Care Teams Telecommunications Analyst Relationship Specialty Start Date End Date Tomi Crystal MD PCP - General Family Practice 04/09/191999 [place] [address]
--- OUTSIDE RECORDS SUMMARY | 2022-03-30 16:49 | XMS_ITS | Encounter Summary ---
:1990 Author Organization [facility] Address [address] [place] [address] Care Team Providers Name Role Phone Found, No Pcp MD Primary Care Provider Unavailable Reason for Visit Reason Comments Chest Pain CRISIS EVALUATION--ED Encounter Details Date Type Department Care Team Description 04/11/2021 Emergency [facility] Yee Powell, Heart palpitations (Primary Dx); [address] [facility]. PA-C Anxiety; [place] [address] [address] [facility] Suicidal ideation [phone] [place], [place] [phone] (Wo rk) Social History Tobacco Use Types [...] drinks on one occasion? No t asked Food Insecurity Answer Date Recorded Within [...] be sent through Care Everywhere. Supraventricular Tachycardia (Chadian)documented in this encounter Medications at Time of [...] Carrillo RN - 04/11/2021 8:26 PM CDT [facility] ED Nursing Discharge Note Patient discharged: to [...] patient came to the ED from the [facility], [phone]. He presented to the ED with a medication list but no other information from [facility]. I called & spoke to Garrison [...] assessed [facility] due to his concern about his physical health (he has a history of heart issues). BOBBY Johnson Yee Powell PA-C - 04/11/2021 4:54 PM CDT [facility] Emergency Medicine Visit Note Chief Complaint: Chest Pain and CRISIS EVALUATION--ED Luisito Rainey is a 30 y.o. old male presents from inpatient treatment facility [facility]. Hestates he is chronically suicidal, no plan. [...] was completed with the patient. A social worker palliative care, patient's Nurse and me were all present [...] infectious or metabolic cause of current condition. prop worker consultation ordered. Based on initial physical exam and chart review lab work was indicated at this time. CBC, BMP, TSH troponin and ECG. Likely anxiety but will do work up if negative he can follow up with his certified corporate travel executive. His lump is likely a lymphnode, will do labs (cbc) and tsh and follow up with PCP. Patient signed out pending Labs. ECG shows NSR without new ischemic appearing st or t wave changes. Arnaldo Rabago PA-C ED Course as of 04/11/211912 e Apr 11, [id number] Patient signed out pending Lab results. [JU] 1718 Sign out received, assumed care at this time. Pending labs and d/c back to [facility]. [GT] 190 Reviewed labs which is all in normal range. [GT] 1906 Updated patient. He is lying in bed cooperative, alert and oriented. Will f/u with his certified corporate travel executive on 04/20/21 and speak to his PCP [...] procedure are i n the results section. [id number] ELECTROCARDIOGRAM STAT 04/11/2021 4:58 R esults for [...] Organization Address City/State/ZIP Code Phon e Number [address] [address] TSH (04/11/2021 5:04 PM CDT) athologist Signature TSH, Sensitive 1.19 0.30 - 04/11/2021 [facility] 4.50 6:25 PM CDT HOSPITAL uIU/mL Specimen Anatomical Collection Method / Collection Time Recei shakeel Time (Source) Location / Volume Laterality Blood Venipuncture / 04/11/2021 5:04 04/11/2021 5:08 Unknown PM CDT PM CDT Arnaldo Rabago PA-C LAB_1 Performing Organization Address City/[facility]/[place]IP [facility] Number [address] [address] Troponin I (04/11/2021 5:04 PM CDT) athologist Signature Troponin I <0.01 0.00 - 0.03 04/11/2021 [facility] ng/mL 5:42 PM CDT HOSPITAL Specimen Anatomical Collection Method / Collection Time Recei shakeel Time (Source) Location / Volume Laterality Blood Venipuncture / 04/11/2021 5:04 04/11/2021 5:08 Unknown PM CDT PM CDT Arnaldo Parker Gem FLORES LAB_1 Performing Organization Address [facility] e Number [address] [address] Basic Metabolic Panel (04/11/2021 5:04 PM CDT) [...] Elena Rabago PA-C LAB_1 Performing Organization Address City/[facility]/ZIP Code Phon e Number [facility] [address] [place] [address] ECG 12-Lead STAT (04/11/2021 4:58 PM CDT) P athologist Signature Ventricular Rate 63 BPM [facility] Atrial Rate 63 BPM [facility] P-R Interval 128 ms [facility] QRS Duration 94 ms [facility] QT 368 ms [facility] QTc 376 ms [facility] P [place] 23 degrees [facility] T [place] 44 degrees [facility] Specimen (Source) Anatomical Collection Method Collection Time Re ceived Time Location / / Volume Laterality 04/11/2021 4:58 PM CDT Narrative [facility] - 04/12/2021 8:02 AM CDT Sinus rhythm Normal ECG No previous ECGs available Confirmed by MD BANG SUVEER ([id number]) o n 04/12/2021 8:02:33 AM Procedure Note Nimo Bang MD - 04/12/2021Formatti ng of this note might be different from the original. Sinus rhythm Normal ECG No previous ECGs available Confirmed by MD BANG SUVEER ([id number]) o n 04/12/2021 8:02:33 AM Arnaldo Elena Rabago PA-C EKG Performing Organization Address City/[facility] Phon e Number [facility] [address] [place] [address] documented in this encounter Visit Diagnoses Diagnosis Heart palpitations - Primary Palpitations Anxiety (HRC) Anxiety state, unspecified Suicidal ideation Triage Assessment Note - Stephanie Carrillo RN - 04/11/2021 4:52 PM CDT Patient arrived by [facility] from [facility] with chief complaint: Chest pain with suicidal comments Symptoms/background (EMS narrative): [facility] feeling like hehas had chest pain [...] required. documented in this encounter Care Teams Supervisor Toy Parts Former Relationship Specialty Start Date End Date Found, No Pcp, PCP - General 04/11/21 [address] [place] [address] documented as of this encounter
--- OUTSIDE RECORDS SUMMARY | 2022-03-30 16:49 | XMS_ITS | Encounter Summary ---
:1990 Author Organization [facility] Address [facility] [place] [address] Care Team Providers Name Role Phone Unavailable Primary Care Provider Unavailable Encounter Details Date Type Department Care Team Description 10/03/2016 Telephone [facility] June Law, RN [address] [place] [address] Social History Tobacco Use Types Packs/Day [...] and or prescribing MD. offered to page seo professional MD and declined. He stated that he [...]
--- OUTSIDE RECORDS SUMMARY | 2022-03-30 16:49 | XMS_ITS | Encounter Summary ---
:1990 Author Organization [facility] Address [address] [place] [address] Care Team Providers Name Role Phone No Ref-Primary, Physician Primary Care Provider [phone] Reason for Visit Reason Onset Date Comments Pt. Information/instruction 11/30/2018 Encounter Details Date Type Department Care Team Description 11/30/2018 Telephone [facility] Nurse Lilian Barron , Pt. Advisors RN Information/instruction [address] [facility] [place] [address] Social History Tobacco Use Types Packs/Day [...] suicidal/homicidal thoughts. Pt. Will call 911 now. Luiisto says that he wants this message left for Dr. Tomi Crystal. Pt. Says that he wants to be called on Saturday am, at: [phone]. RN then left this message in [facility], as requested. Lilian Barron RN [facility] [phone] documented in this encounter Plan of Treatment Not on filedocumented as of this encounter Visit Diagnoses Not on filedocumented in this encounter Care Teams Pediatric Physical Therapist Relationship Specialty Start Date End Date No Ref-Primary, Physician PCP - General 03/15/21 documented as of this encounter
--- OUTSIDE RECORDS SUMMARY | 2022-03-30 16:49 | XMS_ITS | Encounter Summary ---
:1990 Author Organization [facility] Address [address] [place] [address] Care Team Providers Name Role Phone Unavailable [...]
--- OUTSIDE RECORDS SUMMARY | 2022-03-30 16:49 | XMS_ITS | Clinical Summary ---
:1990 [facility] Address [address] [place] [address] Care Team Providers Name Role Phone Found, [...] for each transition of care or referral. [employer] Allergies Active Allergy Reactions Severity Noted Date Comments Ascorbate Unknown 01/12/2021 Bioflavonoids Unknown 01/12/2021 Cephalexin Unknown 01/12/2021 Choline Fenofibrate Unknown 01/12/2021 Inositol Unknown 01/12/2021 Kiwi Extract Anaphylaxis High 01/12/2021 Lemon Flavor Unknown 01/12/2021 Lemon Oil Unknown 01/12/2021 Joice Flavor Unknown High 01/12/2021 [place] Niacinamide Unknown 01/12/2021 Pantothenic Acid Unknown 01/12/2021 [...] ss Type Group BCBS BCBS OUT OF [id number] 2019-Present [address] [address] [place] [address] Luistio Rainey Personal/Family Self 1990 [address] (Home) [address] [place] [address] Luisito Rainey Personal/Family Self 1990 [address] (Home[address] [place] [address] Advance Directives Latest Code Status on File Code Status Date Activated Date Inactivated Comments Full Code 01/12/2021 10:57 AM 01/16/2021 4:39 PM Care Teams Semiconductor Processor Relationship Specialty Start Date End Date Found, No Pcp, PCP - General 04/11/21 [address] [facility] [place] [address]
--- OUTSIDE RECORDS SUMMARY | 2022-03-30 16:49 | XMS_ITS | Clinical Summary ---
:1990 Author Organization [facility] Address [address] [place] [address] Care Team Providers Name Role Phone Elsewhere, Pcp Primary Care Provider Unavailable Source Comments Patient records contain information from all sites at [facility]. For routine questions regarding patient records, call [phone] during business hours, M-F 8:00 AM - 5:00 PM Central Time. Record requests for emergency care only can be directed to [phone] at any time.[facility] Allergies Active Allergy Reactions Severity Noted Date [...] (see comments) Medium 01/21/2019 Cold so res [place] Other (see comments) 03/20/2003 [place] Anaphylaxis High 12/18/2013 [place] Flavor Other (see comments) High 01/12/2021 [place] Multivitamin With Other (see comments) 09/05/2012 CO LD SORE REACTION Iron,Other Minerals TO VARIOUS/NUMEROU S Niacinamide Other (see comments) Medium 01/21/2019 Cold so res [place] Other (see comments) 03/21/2003 Pantothenic Acid Other (see comments) Medium 01/21/2019 Col d sores Pineapple Anaphylaxis High 06/01/2020 Pyridoxine Other (see comments) Medium 01/21/2019 Cold so res Riboflavin (Vitamin B2) Other (see comments) Medium 9 Cold sores [place] Other (see comments) 03/20/2003 Thiamine (Vitamin B1) Other (see comments) Medium 01/21/2019 Cold sores Medications Medication Sig Dispensed Refills Start Date End Date Status [id number] Take 1 tablet by 0 03/08/2021 Active [...] drinks on one occasion? No t asked Social Isolation Answer Date Recorded In a typical week, how many times do you talk on the phone O nce a week 07/18/2021 with family, friends, or neighbors? How often do you get together with friends or relatives? Nev er 07/18/2021 How often do you attend buddhism or amish services? Never 07/18/2021 Do you belong to any clubs or organizations such as buddhism N o 07/18/2021 groups, unions, fraternal or [...] at Date Recorded Male 06/01/2020 11:57 AM FRONT OFFICE SPEC Last Filed Vital Signs Vital Sign Reading Time Taken Comments Blood Pressure 98/43 07/07/2021 12:45 PM FRONT OFFICE SPEC Pulse 101 07/07/2021 12:45 PM FRONT OFFICE SPEC Temperature 36.9 ??C (98.5 ??F) 07/07/2021 7:18 AM FRONT OFFICE SPEC Respiratory Rate 14 02/07/2021 4:14 AM CDT Oxygen Saturation 100% 07/07/2021 12:45 PM FRONT OFFICE SPEC Inhaled Oxygen Concentration - - Weight 83 kg (182 lb 15.7 oz) 07/06/2021 1:55 PM FRONT OFFICE SPEC Height 172 cm (5' 7.72) 07/06/2021 1:55 PM FRONT OFFICE SPEC Body Mass Index 28.06 07/06/2021 1:55 PM FRONT OFFICE SPEC Plan of Treatment Health Maintenance Due Date [...] Addre ss Type Group [employer] [place] [id number] 2019-Presen [phone] [address] [id number] PPO [facility] [address] [place] [address] Care Teams Applied Psychology Professor Relationship Specialty Start Date End Date Elsewhere, Pcp PCP - General Internal Medicine 07/04/21
--- OUTSIDE RECORDS SUMMARY | 2022-03-30 16:49 | XMS_ITS | Encounter Summary ---
:1990 Author Organization [facility] [place] [address] Care Team Providers Name Role Phone Unavailable Primary Care Provider Unavailable Encounter Details Date Type Department Care Team Description 09/25/2015 Telephone [facility] Yessenia Potts, RN [address] [place] [address] Social History Tobacco Use Types Packs/Day [...]
--- OUTSIDE RECORDS SUMMARY | 2022-03-30 16:49 | XMS_ITS | Encounter Summary ---
:1990 Author Organization [facility] Address [address] [place] [address] Care Team Providers Name Role Phone Unavailable [...]
--- OUTSIDE RECORDS SUMMARY | 2022-03-30 16:49 | XMS_ITS | Encounter Summary ---
:1990 Author Organization [facility] Address [address] [place] [address] Care Team Providers Name Role Phone No Ref-Primary, Physician Primary Care Provider [phone] Reason for Referral CV Cardio consult (Routine) - Closed Specialty Diagnoses / Procedures Referred By Referred To Contact Contact Cardiovascular Disease Diagnoses Palpitations Sinus tachycardia Paroxysmal supraventricular tachycardia (H) Pedrito Noguera, Emil meza MD [address] [facility] [address] [facility] [place] [address] [place], [place] Phone: [phone] Phone: Fax: Referral ID Status Reason Start Date Expiration Date Visits Requ ested Visits Authorized [id number] Closed 03/19/2021 03/19/2022 1 1 Reason for Visit Reason Comments Numbness lower left leg tingling onse t at 1900 lastnight pt ambulated into triage, pt from [place] Palpitations hx of SVT feels palpitations , HR in triage 85 no chest pain Anxiety Encounter Details Date Type Department Care Team Description 03/19/2021 Emergency [facility] Pedrito Noguera, Palpi tations; [facility] MD Sinus tachycardia; Dept [address] [facility] Paroxysmal supraventricular tachycardia (H); [address] [place] [address] Paresthesia of left leg; [place], [place] [phone] Anxiety [phone] (Work) [phone] Social History Tobacco Use Types Packs/Day Years [...] Cardiac Services to schedule your ZIO Patch radiographer cardiac catheterization study as soon as possible: [phone]. An EP Cardiology clinic referral was made for you, they will contact you to establish follow-up. AttachmentsThe following attachments cannot be sent through Care Everywhere. Supraventricular Tachycardia (SVT), Understanding (Uruguayan)Paraesthesias (Uruguayan)Anxiety, Your Body's Response to (Uruguayan)documented in this encounter Medications at Time of [...] pt ambulated into triage, pt from [facility] ??? Palpitations hx of SVT feels palpitations, HR in triage 85 no chest pain ??? Anxiety HPI Luisito Rainey is a 30 year old male from the [facility] treatment [facility], with history of anxiety,depression, chemical [...] that he needs to see an EP Food Handler for medication adjustment and another ablation procedure. This morning he called the [facility] answering service or nurse triage service with concern of elevated heart rate and asking if he can switch back from Metoprolol to Nadolol and questioned whether he was to have another EP study/Zio patch monitor study. He was previously on Nadolol and Corlanor/Ivabradine (5 mg twice daily), but since admission to [facility] recently the beta-terrence therapy will switched to [...] Ascorbate Calcium-Bioflavonoid Other - Describe In Comment [facility] 01/21/2019 Cold sores?? Bioflavonoids Other - Describe In Comment [facility] 01/21/2019 Cold sores?? Choline Fenofibrate Other - Describe In Comment [facility] 01/21/2019 Cold sores ?? Inositol Other - Describe In Comment [facility] 01/21/2019 Cold sores ?? Ascorbic Acid Other - Describe In Comment [facility] 01/21/2019 Cold sores ?? Lemon Oil Other - Describe In Comment [facility] 01/21/2019 Cold sores ?? Niacinamide Other - Describe In Comment [facility] 01/21/2019 Cold sores ?? Pantothenic Acid Other - Describe In Comment [facility] 01/21/2019 Cold sores ?? Pineapple Anaphylaxis High 02/17/2013 ?? Pyridoxine Other - Describe In Comment [facility] 01/21/2019 Cold sores ?? Riboflavin (Vitamin B2) Other - Describe In Comment [facility] 01/21/2019 Cold sores ?? Thiamine (Vitamin B1) Other - Describe In Comment [facility] 01/21/2019 Cold sores ?? Cyanocobalamin (Vitamin B12) Other - Describe In Comment [facility] 01/21/2019 Cold sores ?? Medications Reconcile with [...] EKG: Rapid palpitations Rhythm: normal sinus Rate: [place]: Horizontal axis Ectopy: none Conduction: RSR in [...] Status --------- ------ CBC with platelets and d...[[id number]] Abnormal Final result Please view results for [...] Making) 30 year old male from the [facility], with history of anxiety, depression, chemical dependency [...] repeatedly expressed that he had a particular Food Handler in the past who was only one that would listen to me and performed the ablation. He wants referral to a new EP building performance specialist. He was previously on Nadolol and Corlanor/Ivabradine(5 mg twice daily) therapy per his [facility] Food Handler at [facility], but since admission to [facility] recently his beta-terrence therapy has been switched to Metoprolol tartrate 25 mg twice daily, and his palpitations have worsened, although his benzodiazepine dependence and abuse is also being treated and now his anxiety is worsening. He is unhappy with his Food Handler at the [facility] and would like referral for new EP Food Handler and get another radiographer cardiac catheterization study. He believes that he needs another ablation procedure. I will make a referral to EP cardiology and order an outpatient 7-day Zio patch monitor study. He declined resumption of Nadolol therapy instead of Metoprolol because he wants to ensure that his symptomatic rapid palpitations/PSVT is captured on the monitor study. He appears stable for discharge back to [facility] with continued monitoring there. He was provided [...] (H) Paresthesia of left leg Anxiety 03/19/2021 [facility] Pedrito Noguera MD 03/19/21 484 documented in this encounter Miscellaneous Notes Result Encounter Note - Halberg, Fer, RN - 03/19/2021 5:50 PM CDT Within normal reference range. documented in this encounter Plan of Treatment Scheduled Referrals Name Type Priority Associated Diagnoses [facility] Referral Routine: Next Palpitations Expected: [...] Signature Magnesium 2.1 1.6 - 2.3 03/19/2021 [facility] mg/dL 5:52 PM CDT Specimen Anatomical Collection Method / Collection Time Recei shakeel Time (Source) Location / Volume Laterality Blood VENOUS LINE / Venipuncture / 03/19/2021 5:15 5:34 Unknown Unknown PM CDT PM CDT Pedrito Noguera MD LAB - BLOOD ORDERABLES Performing Organization Address City/State/[place] [address] Acute Care Lab [address] [place] [address]. Room # 2186 [place] [address], [facility] [phone] Acute Care Lab [address] [place] [address]. Room # 2186 D dimer quantitative (03/19/2021 5:15 PM CDT) Analysis Performed At Patho logist Time Signature D-Dimer <0.27 0.00 - 03/19/2021 [facility] Quantitative 0.50 ug/mL 5:49 PM CDT FEU Specimen Anatomical Collection Method / Collection Time Recei shakeel Time (Source) Location / Volume Laterality Blood VENOUS LINE / Venipuncture / 03/19/2021 5:15 5:34 Unknown Unknown PM CDT PM CDT Narrative [facility] - 03/19/2021 5:49 PM CDT This D-dimer assay is intended for use i n conjunction with a clinical pretest probability assessment model to exclude pulmonary embolism (PE) and deep venous thrombosis (DVT) in outpatients suspecte d of PE or DVT. The cut-off value is 0.50 ug/mL FEU. Pedrito Noguera MD LAB - BLOOD ORDERABLES Performing Organization Address City/State/[place] [address] Acute Care Lab [address] [place] [address]. Room # 2186 [place] [address], [facility] [phone] Acute Care Lab [address] [place] [address]. Room # 2186 (ABNORMAL) CBC with platelets and differential (03/19/2021 3:57 PM CDT) Patholo gist Method Time Signature WBC Count 13.3 (H) 4.0 - 03/19/2021 [facility] 11.0 4:11 PM CDT 10e3/uL RBC Count 5.52 4.40 - 03/19/2021 [facility] 5.90 4:11 PM CDT 10e6/uL Hemoglobin 17.2 13.3 - 03/19/2021 [facility] 17.7 g/dL 4:11 PM CDT Hematocrit 48.6 40.0 - 03/19/2021 [facility] 53.0 % 4:11 PM CDT MCV 88 78 - 100 03/19/2021 [facility] fL 4:11 PM CDT MCH 31.2 26.5 - 03/19/2021 [facility] 33.0 pg 4:11 PM CDT MCHC 35.4 31.5 - 03/19/2021 [facility] 36.5 g/dL 4:11 PM CDT RDW 12.2 10.0 - 03/19/2021 [facility] 15.0 % 4:11 PM CDT Platelet Count 242 150 - 450 03/19/2021 [facility] 10e3/uL 4:11 PM CDT % Neutrophils 73 % 03/19/2021 [facility] 4:11 PM CDT % Lymphocytes 18 % 03/19/2021 [facility] 4:11 PM CDT % Monocytes 6 % 03/19/2021 [facility] 4:11 PM CDT % Eosinophils 2 % 03/19/2021 [facility] 4:11 PM CDT % Basophils 1 % 03/19/2021 [facility] 4:11 PM CDT % Immature 0 % 03/19/2021 [facility] Granulocytes 4:11 PM CDT NRBCs per 100 0 <1 /100 03/19/2021 [facility] WBC 4:11 PM CDT Absolute 9.7 (H) 1.6 - 8.3 03/19/2021 [facility] Neutrophils 10e3/uL 4:11 PM CDT Absolute 2.4 0.8 - 5.3 03/19/2021 [facility] Lymphocytes 10e3/uL 4:11 PM CDT Absolute 0.9 0.0 - 1.3 03/19/2021 [facility] Monocytes 10e3/uL 4:11 PM CDT Absolute 0.3 0.0 - 0.7 03/19/2021 [facility] Eosinophils 10e3/uL 4:11 PM CDT Absolute 0.1 0.0 - 0.2 03/19/2021 [facility] Basophils 10e3/uL 4:11 PM CDT Absolute 0.0 <=0.0 03/19/2021 [facility] Immature 10e3/uL 4:11 PM CDT Granulocytes Absolute NRBCs 0.0 10e3/uL 03/19/2021 [facility] 4:11 PM CDT Specimen Anatomical Collection Method / Collection Time Recei shakeel Time (Source) Location / Volume Laterality Blood STRUCTURE OF LEFT Venipuncture / 03/19/2021 3:57 03/19 4:08 UPPER LIMB / Unknown PM CDT PM CDT Unknown Pedrito Noguera MD LAB - BLOOD ORDERABLES Performing Organization Address City/[facility]/[place] [address] Acute Care Lab [facility]. Room # 2186 [place] [address], [facility] [phone] Acute Care Lab [address] [place] [address]. Room # 2186 Troponin I (03/19/2021 3:57 PM CDT) athologist Signature Troponin I <0.015 0.000 - 03/19/2021 [facility] 0.045 ug/L 4:31 PM CDT Comment: [...] LAB - BLOOD ORDERABLES Performing Organization Address City/[facility]/[place] [address] Acute Care Lab [address] [place] [address]. Room # 2186 [place] [address], [facility] [phone] Acute Care Lab [address] [place] [address]. Room # 2186 Basic metabolic panel (03/19/2021 3:57 PM CDT) athologist Signature Sodium 139 133 - 144 03/19/2021 [facility] mmol/L 4:27 PM CDT Potassium 4.0 3.4 - 5.3 03/19/2021 [facility] mmol/L 4:27 PM CDT Chloride 106 94 - 109 03/19/2021 [facility] mmol/L 4:27 PM CDT Carbon Dioxide 26 20 - 32 03/19/2021 [facility] (CO2) mmol/L 4:27 PM CDT Anion Gap 7 3 - 14 03/19/2021 [facility] mmol/L 4:27 PM CDT Urea Nitrogen 10 7 - 30 03/19/2021 [facility] mg/dL 4:27 PM CDT Creatinine 0.79 0.66 - 03/19/2021 [facility] 1.25 mg/dL 4:27 PM CDT Calcium 9.3 8.5 - 10.1 03/19/2021 [facility] mg/dL 4:27 PM CDT Glucose 86 70 - 99 03/19/2021 [facility] mg/dL 4:27 PM CDT GFR Estimate >90 >60 03/19/2021 [facility] mL/min/1.7 4:27 PM CDT 3m2 Comment: [...] Organization Address City/State/[place] [address] [phone] Acute Care Lab [address] [place] [address]. Room # 2186 [place] [address] [phone] Acute Care Lab [address] [place] [address]. Room # 2186 EKG 12 lead (03/19/2021 [...] dose documented in this encounter Care Teams Engineering Model Maker Relationship Specialty Start Date End Date No Ref-Primary, Physician PCP - General 03/15/21 documented as of this encounter
--- OUTSIDE RECORDS SUMMARY | 2022-03-30 16:49 | XMS_ITS | Encounter Summary ---
:1990 Author Organization [facility] Address [address] [place] [address] Care Team Providers Name Role Phone Elsewhere, Pcp Primary Care Provider Unavailable Reason for Visit Auth/Cert Specialty Diagnoses / Procedures Referred By Contact Refer red To Contact Diagnoses Tachycardia Supraventricular (HCC) Procedures CA EP EVAL W SUPRAVENT ABLATE DIAGNOSTIC EPS ABLATION - SVT Referral ID Status Reason Start Date Expiration Date Visits Requ ested Visits Authorized [id number] 1 1 Encounter Details Date Type Department Care Team Description 07/07/2021 Surgery Division of Cardiovascular [facility] DIAGNOSTIC EPS Diseases in Juana Diaz M.D., Ph.D. [place] [id number] [place] [phone] [place] [address] [phone] Social History Tobacco Use Types Packs/Day Years [...] How often do you attend congregation or faith services? Never 07/18/2021 Do you belong to [...] at Date Recorded Male 06/01/2020 11:57 AM DIRECTOR ACCOUNT MANAGEMENT documented as of this encounter Last Filed Vital Signs Vital Sign Reading Time Taken Comments Blood Pressure 98/43 07/07/2021 12:45 PM DIRECTOR ACCOUNT MANAGEMENT Pulse 101 07/07/2021 12:45 PM DIRECTOR ACCOUNT MANAGEMENT Temperature 36.9 ??C (98.5 ??F) 07/07/2021 7:18 AM DIRECTOR ACCOUNT MANAGEMENT Respiratory Rate - - Oxygen Saturation 100% 07/07/2021 12:45 PM DIRECTOR ACCOUNT MANAGEMENT Inhaled Oxygen Concentration - - Weight - - Height - - Body Mass Index - - documented in this encounter Discharge Instructions Discharge InstructionsFYanna prescott - 07/07/2021 12:26 PM CST [facility] were [facility] from the [facility] CVD Interventional/Heart Rhythm Service. Please identify [...] 4:00 p.m., contact the Electrophysiology Service at [phone]. For questions occurring after business hours, on weekends, nights, or holidays call [phone] and ask for Electrophysiology Termination Clerk. Heart Failure Assessment: Weigh yourself at the [...] avoid/skip your follow-up appointments, they are important! CTOR ACCOUNT MANAGEMENT documented in this encounter Medications at Time of Discharge Medication Sig Dispensed Refills Start Date End Date gabapentin Take 300 mg by mouth 2 0 06/05/2021 (NEURONTIN) 300 mg (two) times a day. capsule gabapentin Take 600 mg by mouth 2 0 06/05/2021 (NEURONTIN) 600 mg (two) times a day. tablet LORazepam (ATIVAN) 1 Take 1 tablet by mouth 0 mg tablet as needed. EPINEPHrine 0.3 Inject intramuscularly 0 03/08/20 21 mg/0.3 mL injection as needed. syringe hydrOXYzine Take 100 mg by mouth as 0 (VISTARIL) 100 mg needed. capsule melatonin 10 mg Take 10 mg by mouth at 0 03/01/20 21 tablet bedtime. hvxdmhbpqllg-Pk-ylqx Take 1 tablet by mouth 0 -minerals [...] instructions were reviewed in detail as per [id number] with patient and family and they verbalized understanding. Follow up appointment is arranged. Patient was dismissed when discharge criteria was met, accompanied byfriendAll questions answered. CTOR ACCOUNT MANAGEMENT documented in this encounter Plan of Treatment Not on filedocumented as of this encounter Procedures Procedure Name Priority Date/Time Associated Diagnosis Comme nts ECG Routine 07/07/2021 11:37 Results for this AM DIRECTOR ACCOUNT MANAGEMENT procedure are i n the results section. HEART RHYTHM Routine 07/07/2021 10:57 Tachycardia Results for this PROCEDURE AM DIRECTOR ACCOUNT MANAGEMENT Supraventricular (HCC) proce dure are in the results section. ACT, POCT, B Routine 07/07/2021 10:45 Results for this AM DIRECTOR ACCOUNT MANAGEMENT procedure are i n the results section. ACT, POCT, B Routine 07/07/2021 10:07 Results for this AM DIRECTOR ACCOUNT MANAGEMENT procedure are i n the results section. ACT, POCT, B Routine 07/07/2021 9:40 Results for this AM DIRECTOR ACCOUNT MANAGEMENT procedure are i n the results section. ACT, POCT, B Routine 07/07/2021 9:22 Results for this AM DIRECTOR ACCOUNT MANAGEMENT procedure are i n the results section. ABG AND LYTES Routine 07/07/2021 9:19 Results for this EG6+, POCT, B AM DIRECTOR ACCOUNT MANAGEMENT procedure are in the results section. documented in this encounter Results ECG 12 Lead (07/07/2021 11:37 AM DIRECTOR ACCOUNT MANAGEMENT) P athologist Signature Ventricular Rate 92 BPM MUSE ECG/Min CA Interval 144 ms MUSE QRSD Interval 90 ms MUSE QT Interval 346 ms MUSE QTC Interval 427 ms MUSE P [place] 51 degrees MUSE R [place] -3 degrees MUSE T Wave [place] 43 degrees MUSE Specimen Anatomical Collection Method Collection Time Receive d Time (Source) Location / / Volume Laterality 07/07/2021 11:37 07/07/2021 AM DIRECTOR ACCOUNT MANAGEMENT 11:38 AM DIRECTOR ACCOUNT MANAGEMENT Impressions MUSE - 07/07/2021 11:38 AM DIRECTOR ACCOUNT MANAGEMENT Normal sinus rhythm Normal ECG When compared [...] MUSE NA DIAGNOSTIC EPS (07/07/2021 10:57 AM DIRECTOR ACCOUNT MANAGEMENT) Anatomical Region Laterality Modality X-Ray Angiography Specimen (Source) Anatomical Collection Method Collection Time Re ceived Time Location / / Volume Laterality 07/07/2021 8:38 AM DIRECTOR ACCOUNT MANAGEMENT Narrative 07/07/2021 11:38 AM DIRECTOR ACCOUNT MANAGEMENT For the complete report, see the Order-L [...] (Activated Clotting Time), POCT (07/07/2021 10:45 AM DIRECTOR ACCOUNT MANAGEMENT) P athologist Signature Activated 114 84 - 139 07/07/2021 PCSM Clotting Time, sec 10:52 AM DIRECTOR ACCOUNT MANAGEMENT POCT Specimen Anatomical Collection Method Collection Time Receive d Time (Source) Location / / Volume Laterality Blood 07/07/2021 10:45 07/07/2021 AM DIRECTOR ACCOUNT MANAGEMENT 10:53 AM DIRECTOR ACCOUNT MANAGEMENT Unknown Provider LAB POCT ORDERABLES - DEVICE Performing Organization Address City/State/ZIP Code Phon e Number POC RST [facility] INPATIENT [address] [place], [place] [address] LABS PCSM [facility] [place] [address] [place] P[facility] [address] (ABNORMAL) ACT (Activated Clotting Time), POCT (07/07/2021 10:07 AM DIRECTOR ACCOUNT MANAGEMENT) P athologist Signature Activated 211 (H) 84 - 139 07/07/2021 PCSM Clotting Time, sec 10:16 AM DIRECTOR ACCOUNT MANAGEMENT POCT Specimen Anatomical Collection Method Collection Time Receive d Time (Source) Location / / Volume Laterality Blood 07/07/2021 10:07 07/07/2021 AM DIRECTOR ACCOUNT MANAGEMENT 10:17 AM DIRECTOR ACCOUNT MANAGEMENT Unknown Provider LAB POCT ORDERABLES - DEVICE Performing Organization Address City/State/ZIP Code Phon e Number POC RST [facility] IN[facility]IENT [address] [place], [place] [address] [place] [address] [place] POC [address] (ABNORMAL) ACT (Activated Clotting Time), POCT (07/07/2021 9:40 AM DIRECTOR ACCOUNT MANAGEMENT) P athologist Signature Activated 211 (H) 84 - 139 07/07/2021 PCSM Clotting Time, sec 9:49 AM DIRECTOR ACCOUNT MANAGEMENT POCT Specimen Anatomical Collection Method Collection Time Receive d Time (Source) Location / / Volume Laterality Blood 07/07/2021 9:40 AM 2 9:49 DIRECTOR ACCOUNT MANAGEMENT AM DIRECTOR ACCOUNT MANAGEMENT Unknown Provider LAB POCT ORDERABLES - DEVICE Performing Organization Address City/[facility]/ZIP [facility] Phon e Number POC [facility]ST [facility]IENT [address] [place], [place] [address] [place] [address] [place] POC [address] (ABNORMAL) ACT (Activated Clotting Time), POCT (07/07/2021 9:22 AM DIRECTOR ACCOUNT MANAGEMENT) P athologist Signature Activated 216 (H) 84 - 139 07/07/2021 PCSM Clotting Time, sec 9:33 AM DIRECTOR ACCOUNT MANAGEMENT POCT Specimen Anatomical Collection Method Collection Time Receive d Time (Source) Location / / Volume Laterality Blood 07/07/2021 9:22 AM 2 9:33 DIRECTOR ACCOUNT MANAGEMENT AM DIRECTOR ACCOUNT MANAGEMENT Unknown Provider LAB POCT ORDERABLES - DEVICE Performing Organization Address City/State/ZIP Code Phon e Number POC [facility] [address] [place], [place] [address] [place] [address] [place] [facility] [address] (ABNORMAL) ABG and Lytes, POCT (07/07/2021 9:19 AM DIRECTOR ACCOUNT MANAGEMENT) P athologist Signature Sample Site, Artline 07/07/2021 PCLX POCT 9:33 AM DIRECTOR ACCOUNT MANAGEMENT Comment: ----ADDITIONAL INFORMATION---- Performed at the Point of Care pH, POCT 7.34 (L) 7.35 - 7.45 07/07/2021 9:33 AM DIRECTOR ACCOUNT MANAGEMENT PCLX Comment: ----ADDITIONAL INFORMATION---- Performed at the Point of Care pCO2, POCT 51 (H) 35 - 48 mm Hg 07/07/2021 9:33 AM DIRECTOR ACCOUNT MANAGEMENT PC LX Comment: ----ADDITIONAL INFORMATION---- Performed at the Point of Care pO2, POCT 151 (H) 83 - 108 mm Hg 07/07/2021 9:33 AM DIRECTOR ACCOUNT MANAGEMENT PC LX Comment: ----ADDITIONAL INFORMATION---- Performed at the Point of Care Base, POCT 2 -2 - 3 mmol/L 07/07/2021 9:33 AM DIRECTOR ACCOUNT MANAGEMENT PC LX Comment: ----ADDITIONAL INFORMATION---- Performed at the Point of Care HCO3, POCT 28 (H) 22 - 26 mmol/L 07/07/2021 9:33 AM DIRECTOR ACCOUNT MANAGEMENT P CLX Comment: ----ADDITIONAL INFORMATION---- Performed at the Point of Care Sodium, POCT, B 140 135 - 145 mmol/L 07/07/2021 9:33 A M DIRECTOR ACCOUNT MANAGEMENT PCLX Comment: ----ADDITIONAL INFORMATION---- Performed at the Point of Care Potassium, POCT, B 3.5 (L) 3.6 - 5.2 mmol/L 07/07/2021 9:3 3 AM DIRECTOR ACCOUNT MANAGEMENT PCLX Comment: ----ADDITIONAL INFORMATION---- Performed at the Point of Care Hematocrit, POCT, B 41.0 38.3 - 48.6 % 07/07/2021 9:33 AM DIRECTOR ACCOUNT MANAGEMENT PCLX Comment: ----ADDITIONAL INFORMATION---- Performed at the Point of Care Specimen Anatomical Collection Method Collection Time Receive d Time (Source) Location / / Volume Laterality Blood 07/07/2021 9:19 AM 9:33 DIRECTOR ACCOUNT MANAGEMENT AM DIRECTOR ACCOUNT MANAGEMENT Unknown Provider LAB POCT ORDERABLES - DEVICE Performing Organization Address City/State/ZIP Code Phon e Number [facility] [address] [place] [address] PCLX [facility] [place] [address] [place] POC [address] documented in this [...] 120 mg (CARDIZEM Given 07/07/2021 2:46 PM DIRECTOR ACCOUNT MANAGEMENT 120 mg CD/CARTIA XT) 120 mg, oral, Once, On Sat07/07/21 at 1430, For 1 dose, PACU (only), Swallow whole. Do NOT crush, chew or open capsule. erythromycin 5 mg/gram (0.5 %) ophthalmic Given 07/07/2021 2:46 PM DIRECTOR ACCOUNT MANAGEMENT 1 cm ointment 1 cm (ROMYCIN) 1 [...] (1 %) injection Given 07/07/2021 10:46 AM DIRECTOR ACCOUNT MANAGEMENT 10 mL Bilateral (XYLOCAINE) As needed, Starting on Sat07/07/21 at 0838, Intraprocedure (CV) Given 07/07/2021 8:39 AM DIRECTOR ACCOUNT MANAGEMENT 10 mL Right Groin Given 07/07/2021 8:38 AM DIRECTOR ACCOUNT MANAGEMENT 10 mL Left Groin LORazepam (ATIVAN) 1 mg tablet - ADS Ove rride Pull Starting on Sat07/07/21 at 1148, For 1 dose, Created b y cabinet override LORazepam tablet 1 mg (ATIVAN) Given 07/07/2021 12:25 PM DIRECTOR ACCOUNT MANAGEMENT 1 mg 1 mg, oral, Once, On Sat07/07/21 at 1145, For 1 dose, PACU (only) nicotine polacrilex (NICORETTE) 2 mg gum - ADS Override Pull Starting on Sat07/07/21 at 1147, For 1 dose, Created b y cabinet override nicotine polacrilex gum 4 mg (NICORETTE) Given 07/07/2021 12:26 PM DIRECTOR ACCOUNT MANAGEMENT 4 mg 4 mg, buccal, Every 1 [...] Recently Administered Medications Times are shown in DIRECTOR ACCOUNT MANAGEMENT. Scheduled Medication Order 07/05/2021 07/06/2021 07/07/2021 dilTIAZem CD 24 hr capsule 120 mg (CARDIZEM CD/CARTIA XT) (COMPL ETED) 1446 (Given - Provider: Daxa Adler RMarnie) 120 mg, oral, Once, On Sat07/07/21 at 14 30, For 1 dose, PACU (only), Swallow whole. Do NOT crush, chew or open capsule. erythromycin 5 mg/gram (0.5 %) ophthalmic ointment 1 cm (ROMYCIN ) 1446 (Given - Provider: Polly HareNJeremie) 1 cm, right eye, 2 times daily, [...] injection (XYLOCAINE) (CANCELED) 0838 (Given - Provider: Polly RossN. - Comment: total right and left groin)0839 (Given - Provider: Nellie Peralta R.N.)1046 (Given - Provider: Polly RossN. - Comment: groins) As needed, Starting on [...] (NICORETTE) 1226 (Given - Provider: Daxa Adler RMarnie) 4 mg, buccal, Every 1 hour PRN, [...] documented as of this encounter Care Teams Metallography Teacher Relationship Specialty Start Date End Date Elsewhere, Pcp PCP - General Internal Medicine 07/04/21 documented as of this encounter
--- OUTSIDE RECORDS SUMMARY | 2022-03-30 16:49 | XMS_ITS | Encounter Summary ---
:1990 Author Organization [facility] Address [address] [place] [address]. [place] [address] Care Team Providers Name Role Phone Unavailable Primary Care Provider Unavailable Encounter Details Date Type Department Care Team Description 01/02/2016 Telephone [facility] Nurse Destiny Salas , RN Advisors [address] [facility] [place] [address] Social History Tobacco Use Types Packs/Day Years Used Date Smoking Tobacco: Never Assessed Sex Assigned at Date Recorded Not on file documented as of this encounter Miscellaneous Notes Telephone Encounter - Destiny Salas RN - 01/02/2016 5:33 PM CDT Call Type: Triage Call Presenting Problem: Patient called stating that he had been in the [place] [facility] room last evening for a panic attack. He is requesting two tablets of Ativan to get him through so he can go in for a clinic appointment tomorrow. Dr. Damon was solution manager and okayed two tablets, and states that the patient needs to go to see him tomorrow at the [facility]. Patient was advised and he will call the clinic in the morning to get an appointment time. The Ativan was called to the [facility] in [place]. Triage Note: Guideline Title: Medication Questions - [...]
--- OUTSIDE RECORDS SUMMARY | 2022-03-30 16:49 | XMS_ITS | Encounter Summary ---
:1990 Author Organization [facility] Address [address] [place] [address] Care Team Providers Name Role Phone Unavailable [...]
--- OUTSIDE RECORDS SUMMARY | 2022-03-30 16:49 | XMS_ITS | Encounter Summary ---
:1990 Author Organization [facility] Address [address] [place] [address] Care Team Providers Name Role Phone No Ref-Primary, Physician Primary Care Provider [phone] Encounter Details Date Type Department Care [...] on filedocumented in this encounter Care Teams Human Resources Assistant Relationship Specialty Start Date End Date No Ref-Primary, Physician PCP - General 03/15/21 documented as of this encounter
--- OUTSIDE RECORDS SUMMARY | 2022-03-30 16:49 | XMS_ITS | Encounter Summary ---
:1990 Author Organization [facility] Address [address] [place] [address] Care Team Providers Name Role Phone Elsewhere, Pcp Primary Care Provider Unavailable Reason for Visit Reason Comments Results Encounter Details Date Type Department Care Team Description 07/07/2021 Clinical Department of [place], Results Communication Cardiovascular Rodriog Arias, Medicine in ParisKarley, Ph. D. [address] [place] [address] [phone] Social History Tobacco Use Types Packs/Day Years [...] How often do you attend protestant or hinduism services? 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 - 07/07/2021 5:49 PM WASTE MANAGEMENT RECYCLING TECHNICIAN Dr. Donald said he would call Mr. Rainey to discuss further. E MANAGEMENT RECYCLING TECHNICIAN Telephone Encounter - Sameera Luong - 07/07/2021 3:56 PM CST SUBJECTIVE CHIEF COMPLAINT / REASON FOR CALL Results Name of caller: Luisito Rainey (patient) Patient expects communication via portal: No Phone number: [phone] Test Results Goal or summary: Mr. Rainey [...] case. He would appreciate a callback YASSINE E MANAGEMENT RECYCLING TECHNICIAN documented in this encounter Plan of Treatment Not on filedocumented as of this encounter Visit Diagnoses Not on filedocumented in this encounter Additional Health Concerns Assessment Noted Time PHQ-9 Depression Total Score: 11 09/09/2015 4:10 PM CD T documented as of this encounter Care Teams Claims Director Relationship Specialty Start Date End Date Elsewhere, Pcp PCP - General Internal Medicine 07/04/21 documented as of this encounter
--- OUTSIDE RECORDS SUMMARY | 2022-03-30 16:49 | XMS_ITS | Encounter Summary ---
:1990 Author Organization [facility] Address [address] [place] [address] Care Team Providers Name Role Phone Elsewhere, Pcp Primary Care Provider Unavailable Reason for Referral Outpatient (Routine) - Closed Specialty Diagnoses / Procedures Referred By Contact Refer red To Contact Diagnoses Tachycardia Supraventricular (HCC) Rodrigo Gray V., [facility] Procedures ECG Ambulatory Real Time Cardiac Monitoring Karley, Ph.D. [address] [place] [address] Referral ID Status Reason Start Date Expiration Date Visits Requ ested Visits Authorized [id number] Closed 08/08/2021 08/08/2022 1 1 AL TECH Reason for Visit Outpatient (Routine) - Closed Specialty Diagnoses / Procedures Referred By Contact Refer red To Contact Diagnoses Tachycardia Supraventricular (HCC) Rodrigo Gray V., [facility] Procedures ECG Ambulatory Real Time Cardiac Monitoring Karley, Ph.D. [address] [place], [place] [address] Referral ID Status Reason Start Date Expiration Date Visits Requ ested Visits Authorized [id number] Closed 08/08/2021 08/08/2022 1 1 Encounter Details Date Type Department Care Team Description 08/08/2021 Hospital Division of [place], Tachycardia Encounter Cardiovascular Rodrigo Arias Supraventr icular (HCC) Diseases in Karley, Ph.D. [place], [place] [address] [facility] [address] [place] [phone] Social History Tobacco Use Types Packs/Day Years [...] er 07/18/2021 How often do you attend voodoo or gnosticism services? 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 [id number]-Py-twew Take 1 tablet by mouth 0 -minerals [...] Duration 0 sec duration INFOBIONIC MOME AF Robinson 0% percent INFOBIONIC MOME VT Runs 0 count INFOBIONIC MOME SVT Runs 0 count INFOBIONIC MOME Symptom Count 136 count INFOBIONIC MOME Specimen (Source) Anatomical Collection Method Collection Time Re ceived Time Location / / Volume Laterality 08/09/2021 7:23 AM ANIMAL TECH Narrative INFOBIONIC MOME - 09/20/2021 8:25 AM [...] rate varied from 74 to 170 BPM. Bolt Sawyer: PANCHO Wiggins/ PANCHO Lee Procedure Note Bernabe [...] rate varied from 74 to 170 BPM. Bolt Sawyer: PANCHO Wiggins/ PANCHO Lee Rodrigo Gray M.D., Ph.D. CV CARDIAC SERVICE S PROCEDURES Performing Organization Address City/State/ZIP Code Phon e Number INFOBIONIC MOME INFOBIONIC MOME NA documented in this encounter Visit Diagnoses Diagnosis Tachycardia Supraventricular (HCC) documented in this encounter Additional Health Concerns Assessment Noted Time PHQ-9 Depression Total Score: 11 09/09/2015 4:10 PM CD T documented as of this encounter Care Teams Farmworker [employer] Relationship Specialty Start Date End Date Elsewhere, Pcp PCP - General Internal Medicine 07/04/21 documented as of this encounter
--- OUTSIDE RECORDS SUMMARY | 2022-03-30 16:49 | XMS_ITS | Encounter Summary ---
:1990 Author Organization [facility] Address [facility] [place] [address] Care Team Providers Name Role Phone Unavailable Primary Care Provider Unavailable Encounter Details Date Type Department Care Team Description 08/20/2015 Telephone [facility] Nu e Advisors Gisele Agrawal, RN [address] [place] [address] Social History Tobacco Use Types Packs/Day [...] reality, disturbed ability to think, perceive and parts classifier clearly. ? NO Previously evaluated and worsening [...] if symptoms worsen or new symptoms develop. T QUALITY MANAGER documented in this encounter Plan of Treatment Not on filedocumented as of this encounter Visit Diagnoses Not on filedocumented in this encounter
--- OUTSIDE RECORDS SUMMARY | 2022-03-30 16:49 | XMS_ITS | Encounter Summary ---
:1990 Author Organization [facility] Address [address] [place] [address] Care Team Providers Name Role Phone Elsewhere, Pcp Primary Care Provider Unavailable Reason for Referral Outpatient (Routine) - Closed Specialty Diagnoses / Procedures Referred By Contact Refer red To Contact Diagnoses Tachycardia Supraventricular (HCC) Rodrigo Gray V. [facility] Procedures ECG Event Recorder Karley, Ph.D. [address] [place] [phone] Referral ID Status Reason Start Date Expiration Date Visits Requ ested Visits Authorized [id number] Closed 07/10/2021 07/10/2022 1 1 FEEDER Reason for Visit Outpatient (Routine) - Closed Specialty Diagnoses / Procedures Referred By Contact Refer red To Contact Diagnoses Tachycardia Supraventricular (HCC) Rodrigo Gray V. [facility] Procedures ECG Event Recorder Karley, Ph.D. [address] [place] [phone] Referral ID Status Reason Start Date Expiration Date Visits Requ ested Visits Authorized [id number] Closed 07/10/2021 07/10/2022 1 1 Encounter Details Date Type Department Care Team Description 07/10/2021 Hospital Division of [place], Tachycardia Encounter Cardiovascular Rodrigo Arias Supraventr icular (HCC) Diseases in Karley, Ph.D. [place], [place] [address] [facility] [address] [place] [phone] Social History Tobacco Use Types Packs/Day Years [...] er 07/18/2021 How often do you attend spiritism or confucianist services? Never 07/18/2021 Do you belong to any clubs or organizations such as spiritism N o 07/18/2021 groups, unions, fraternal or [...] at Date Recorded Male 06/01/2020 11:57 AM NUT FEEDER documented as of this encounter Medications at [...] mouth at 0 03/01/20 21 tablet bedtime. [id number]-Cj-ekjo Take 1 tablet by mouth 0 -minerals [...] Results f or this ALL CHARGES AM NUT FEEDER Supraventricular (HCC) proce dure are in the results section. documented in this encounter Results EVENT MONITOR - ALL CHARGES (07/06/2021 6:30 AM NUT FEEDER) Specimen (Source) Anatomical Collection Method Collection Time Re ceived Time Location / / Volume Laterality 07/12/2021 1:51 PM NUT FEEDER Narrative INFOBIONIC MOME - 07/13/2021 8:41 AM NUT FEEDER 1. The patient was monitored from 06/01/2021 [...] to 150 BPM. No ectopy was seen. Cpr Ambulance Driver: PANCHO Fraire/PANCHO Trevino Procedure Note Gordon Stephen [...] to 150 BPM. No ectopy was seen. Cpr Ambulance Driver: PANCHO Fraire/PANCHO Trevino Rodrigo Gray M.D., Ph.D. CV CARDIAC SERVICE S PROCEDURES Performing Organization Address City/State/ZIP Code Phon e Number INFOBIONIC MOME INFOBIONIC MOME NA documented in this encounter Visit Diagnoses Diagnosis Tachycardia Supraventricular (HCC) documented in this encounter Additional Health Concerns Assessment Noted Time PHQ-9 Depression Total Score: 11 09/09/2015 4:10 PM CD T documented as of this encounter Care Teams [place] Relationship Specialty Start Date End Date Elsewhere, Pcp PCP - General Internal Medicine 07/04/21 documented as of this encounter
--- OUTSIDE RECORDS SUMMARY | 2022-03-30 16:49 | XMS_ITS | Encounter Summary ---
:1990 Author Organization [facility] Address [address] [place] [address] Care Team Providers Name Role Phone Elsewhere, Pcp Primary Care Provider Unavailable Encounter Details Date Type Department Care Team Description 09/22/2021 Clinical Communication Department of Lorin Rodriguez Cardiovascular Medicine Kilo Hoskins in [facility] [address] [facility] [address] [place] [phone] Social History Tobacco Use Types Packs/Day Years [...] How often do you attend nondenominational or hinduism services? 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 documented in this encounter Plan of Treatment Not on filedocumented as of this encounter Visit Diagnoses Not on filedocumented in this encounter Additional Health Concerns Assessment Noted Time PHQ-9 Depression Total Score: 11 09/09/2015 4:10 PM CD T documented as of this encounter Care Teams Circular Knife Cutter Machine Relationship Specialty Start Date End Date Elsewhere, Pcp PCP - General Internal Medicine 07/04/21 documented as of this encounter
--- OUTSIDE RECORDS SUMMARY | 2022-03-30 16:49 | XMS_ITS | Encounter Summary ---
:1990 Author Organization [facility] Address [address] [place] [address] Care Team Providers Name Role Phone No Ref-Primary, Physician Primary Care Provider [phone] Encounter Details Date Type Department Care [...] on filedocumented in this encounter Care Teams Assistant Film Editor Relationship Specialty Start Date End Date No Ref-Primary, Physician PCP - General 03/15/21 documented as of this encounter
--- OUTSIDE RECORDS SUMMARY | 2022-03-30 16:49 | XMS_ITS | Encounter Summary ---
:1990 Author Organization [facility] Address [address] [place] [address] Care Team Providers Name Role Phone No Ref-Primary, Physician Primary Care Provider [phone] Reason for Visit Reason Comments Chest Pain Encounter Details Date Type Department Care Team Description 03/15/2021 Emergency [facility] Arnaldo Gutierrez MD Chest pain, non-cardiac; [place] [facility] [address] [facility] Tach yarrhythmia Dept ER [address] [place] [address] [place], [place] [phone] (Work) [phone] Social History Tobacco Use Types Packs/Day Years [...] arrhythmia, you should schedule follow-up with an document image technician. documented in this encounter Medications at Time [...] Pt presents to ED via EMS from [facility]. Pt reports CP that started today at 1100. Pt states pain midsternal and was not brought on by any precipitating factors. Pt reports pain has been intermittent stabbing pain. Pt c/o palpitations and fluttering in chest. Nelly Blank RN - 03/15/2021 1:20 PM CDT Bed: ED04 Expected date: Expected time: Means of arrival: Comments: [facility] Arnaldo Gutierrez MD - 03/15/2021 1:20 PM CDT History Chief Complaint Patient presents with ??? Chest Pain HPI Luisito Rainey is a 30 year old male who comes in from [facility] because of chest pain. He describes [...] May 26, 2019. 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 He has a history of ADHD and anxiety. He is Covid vaccinated. He has not had Covid infection. He has been at [facility] for 9 days for benzodiazepine abuse but [...] EKG: none Rhythm: normal sinus Rate: normal [place]: normal Ectopy: none Conduction: normal ST Segments/ T Waves: No ST-T wave changes Q Waves: none Comparison to prior: No old EKG available Clinical Impression: normal EKG Critical Care time: none Results for orders placed or performed during the hospital encounter of 03/15/21 (from the past 24 hour(s)) Chase Draw Narrative The following orders were created for panel order Chase Draw. Procedure Abnormality Status --------- ------ Extra Blue Top Tube[[id number]] Final result Extra Red Top Tube[[id number]] Final result Extra Green Top (Juliette...[[id number]] Final result Extra Green Top (Juliette...[[id number]] Final result Extra Purple Top Tube[[id number]] Final result Please view results for these tests on the individual orders. CBC with platelets differential Narrative The following orders were created for panel order CBC with platelets differential. Procedure Abnormality Status --------- ------ CBC with platelets and d...[[id number]] Abnormal Final result Please view results for [...] Range Hold Specimen JIC Extra Green Top (Juliette Heparin) Tube Result Value Ref Range Hold Specimen JIC Extra Green Top (Juliette Heparin) Tube Result Value Ref Range Hold [...] 600 mg (600 mg Oral Given 03/15/21 1406) PHENobarbital (LUMINAL) tablet 64.8 mg (64.8 mg Oral Given 03/15/21 1406) Assessments & Plan (with Medical Decision Making) 30-year-old male at [facility] for benzodiazepine dependence presented with [...] He can safely return to treatment at [facility]. He should schedule follow-up with electrophysiology regarding the tachyarrhythmia. I have reviewed the nursing notes. I have reviewed the findings, diagnosis, plan and need for follow up with the patient. New Prescriptions No medications on file Final diagnoses: Chest pain, non-cardiac Tachyarrhythmia 03/15/2021 [facility] Arnaldo Gutierrez MD 03/15/21 1605 [...] is unremarkable. BRENDA FELTON MD SYSTEM ID: ??[id number] Narrative 03/15/2021 4:26 PM CDT CHEST TWO [...] is unremarkable. BRENDA FELTON MD SYSTEM ID: [id number] Arnaldo Gutierrez MD IMG DIAGNOSTIC IMAGING ORDER ELIZA (ABNORMAL) CBC with platelets and differential (03/15/2021 2:05 PM CDT) [facility] Method Time Signature WBC Count 11.1 (H) 4.0 - 03/15/2021 [facility] 11.0 2:20 PM CDT 10e3/uL RBC Count 5.15 4.40 - 03/15/2021 [facility] 5.90 2:20 PM CDT 10e6/uL Hemoglobin 16.1 13.3 - 03/15/2021 [facility] 17.7 g/dL 2:20 PM CDT Hematocrit 45.9 40.0 - 03/15/2021 [facility] 53.0 % 2:20 PM CDT MCV 89 78 - 100 03/15/2021 [facility] fL 2:20 PM CDT MCH 31.3 26.5 - 03/15/2021 [facility] 33.0 pg 2:20 PM CDT MCHC 35.1 31.5 - 03/15/2021 [facility] 36.5 g/dL 2:20 PM CDT RDW 12.2 10.0 - 03/15/2021 [facility] 15.0 % 2:20 PM CDT Platelet Count 226 150 - 450 03/15/2021 [facility] 10e3/uL 2:20 PM CDT % Neutrophils 77 % 03/15/2021 [facility] 2:20 PM CDT % Lymphocytes 14 % 03/15/2021 [facility] 2:20 PM CDT % Monocytes 7 % 03/15/2021 [facility] 2:20 PM CDT % Eosinophils 1 % 03/15/2021 [facility] 2:20 PM CDT % Basophils 1 % 03/15/2021 [facility] 2:20 PM CDT % Immature 0 % 03/15/2021 [facility] Granulocytes 2:20 PM CDT NRBCs per 100 0 <1 /100 03/15/2021 [facility] WBC 2:20 PM CDT Absolute 8.6 (H) 1.6 - 8.3 03/15/2021 [facility] Neutrophils 10e3/uL 2:20 PM CDT Absolute 1.5 0.8 - 5.3 03/15/2021 [facility] Lymphocytes 10e3/uL 2:20 PM CDT Absolute 0.8 0.0 - 1.3 03/15/2021 [facility] Monocytes 10e3/uL 2:20 PM CDT Absolute 0.2 0.0 - 0.7 03/15/2021 [facility] Eosinophils 10e3/uL 2:20 PM CDT Absolute 0.1 0.0 - 0.2 03/15/2021 [facility] Basophils 10e3/uL 2:20 PM CDT Absolute 0.1 (H) <=0.0 03/15/2021 [facility] Immature 10e3/uL 2:20 PM CDT Granulocytes Absolute NRBCs 0.0 10e3/uL 03/15/2021 [facility] 2:20 PM CDT Specimen Anatomical Collection Method / Collection Time Recei shakeel Time (Source) Location / Volume Laterality Blood VENOUS LINE / Venipuncture / 03/15/2021 2:05 2:10 Unknown Unknown PM CDT PM CDT Arnaldo Gutierrez MD LAB - BLOOD ORDERABLES Performing Organization Address City/State/[place] [address] [phone] [facility] [address] [place] [address], [facility] [phone] Acute Care Lab [address] Extra Purple Top Tube (03/15/2021 2:05 PM CDT) P athologist Signature Hold Specimen [facility] 03/15/2021 [facility] 3:18 PM CDT Specimen Anatomical Collection Method / Collection Time Recei shakele Time (Source) Location / Volume Laterality Blood VENOUS LINE / Venipuncture / 03/15/2021 2:05 1 2:10 Unknown Unknown PM CDT PM CDT Arnaldo Gutierrez MD LAB - BLOOD ORDERABLES Performing Organization Address City/[facility]/[place] [address] [phone] Acute Care Lab [address] [place] [address], [facility] [phone] Acute Care Lab [address] Extra Green Top (Juliette Heparin) Tube (03/15/2021 2:05 PM CDT) athologist Signature Hold Specimen [facility] 03/15/2021 [facility] 3:18 PM CDT Specimen Anatomical Collection Method / Collection Time Recei shakeel Time (Source) Location / Volume Laterality Blood VENOUS LINE / Venipuncture / 03/15/2021 2:05 1 2:10 Unknown Unknown PM CDT PM CDT Arnaldo Gutierrez MD LAB - BLOOD ORDERABLES Performing Organization Address City/State/[place] [address] [phone] Acute Care Lab [address] [place] [address] [phone] Acute Care Lab [address] [place] [address]. Room # 2186 Extra Green Top (Juliette Heparin) Tube (03/15/2021 2:05 PM CDT) athologist Signature Hold Specimen JI 03/15/2021 [facility] 3:18 PM CDT Specimen Anatomical Collection Method / Collection Time Recei shakeel Time (Source) Location / Volume Laterality Blood VENOUS LINE / Venipuncture / 03/15/2021 2:05 1 2:10 Unknown Unknown PM CDT PM CDT Arnaldo Gutierrez MD LAB - BLOOD ORDERABLES Performing Organization Address City/[facility]/[place] [address] Acute Care Lab [address] [place] [address]. Room [address] [place] [address], [facility] [phone] Acute Care Lab [address] [place] [address]. Room # 2186 Extra Red Top Tube (03/15/2021 2:05 PM CDT) athologist Signature Hold Specimen [facility] 03/15/2021 [facility] 3:18 PM CDT Specimen Anatomical Collection Method / Collection Time Recei shakeel Time (Source) Location / Volume Laterality Blood VENOUS LINE / Venipuncture / 03/15/2021 2:05 1 2:10 Unknown Unknown PM CDT PM CDT Arnaldo Gutierrez MD LAB - BLOOD ORDERABLES Performing Organization Address City/[facility]/[place] [address] Acute Care Lab [address] [place], [place] [address]vd. Room # [address] [place] [address], [facility] [phone] Acute Care Lab [address] [place] [address]. Room # 2186 Extra Blue Top Tube (03/15/2021 2:05 PM CDT) athologist Signature Hold Specimen JI 03/15/2021 [facility] 3:18 PM CDT Specimen Anatomical Collection Method / Collection Time Recei shakeel Time (Source) Location / Volume Laterality Blood VENOUS LINE / Venipuncture / 03/15/2021 2:05 1 2:10 Unknown Unknown PM CDT PM CDT Arnaldo Gutierrez MD LAB - BLOOD ORDERABLES Performing Organization Address City/[facility] [place] [address] Acute Care Lab [address] [place] [address]vd. Room # [address] [place] [address], [facility] [phone] Acute Care Lab [address] [place] [address]. Room # 2186 Nt probnp inpatient (BNP) (03/15/2021 2:05 PM CDT) athologist Signature N terminal Pro 19 0 - 450 03/15/2021 [facility] BNP Inpatient pg/mL 2:36 PM CDT [...] LAB - BLOOD ORDERABLES Performing Organization Address City/[facility]/[place] [address] Acute Care Lab [address] [place] [address]. Room [address] [place] [address], [facility] [phone] Acute Care Lab [address] [place] [address]. Room # 2186 Troponin I (03/15/2021 2:05 PM CDT) athologist Signature Troponin I <0.015 0.000 - 03/15/2021 [facility] 0.045 ug/L 2:36 PM CDT Comment: [...] LAB - BLOOD ORDERABLES Performing Organization Address City/[facility]/ZIP [facility] [place] [address] Acute Care Lab [address] [place] [address]. Room # [address] [place] [address], [facility] [phone] Acute Care Lab [address] [place] [address]. Room # 2186 Lipase (03/15/2021 2:05 PM CDT) P athologist Signature Lipase 132 73 - 393 U/L 03/15/2021 [facility] 2:27 PM CDT Specimen Anatomical Collection Method / Collection Time Recei shakeel Time (Source) Location / Volume Laterality Blood VENOUS LINE / Venipuncture / 03/15/2021 2:05 1 2:10 Unknown Unknown PM CDT PM CDT Arnaldo Gutierrez MD LAB - BLOOD ORDERABLES Performing Organization Address City/[facility] [place] [address] Acute Care Lab [address] [place] [address]. Room [address] [place] [address], [facility] [phone] Acute Care Lab [address] [place] [address]. Room # 2186 Comprehensive metabolic panel (03/15/2021 2:05 PM CDT) P athologist Signature Sodium 137 133 - 144 03/15/2021 [facility] mmol/L 2:33 PM CDT Potassium 3.8 3.4 - 5.3 03/15/2021 [facility] mmol/L 2:33 PM CDT Chloride 107 94 - 109 03/15/2021 [facility] mmol/L 2:33 PM CDT Carbon Dioxide 25 20 - 32 03/15/2021 [facility] (CO2) mmol/L 2:33 PM CDT Anion Gap 5 3 - 14 03/15/2021 [facility] mmol/L 2:33 PM CDT Urea Nitrogen 9 7 - 30 03/15/2021 [facility] mg/dL 2:33 PM CDT Creatinine 0.79 0.66 - 03/15/2021 [facility] 1.25 mg/dL 2:33 PM CDT Calcium 9.1 8.5 - 10.1 03/15/2021 [facility] mg/dL 2:33 PM CDT Glucose 90 70 - 99 03/15/2021 [facility] mg/dL 2:33 PM CDT Alkaline 103 40 - 150 03/15/2021 [facility] Phosphatase U/L 2:33 PM CDT AST 19 0 - 45 U/L 03/15/2021 [facility] 2:33 PM CDT ALT 34 0 - 70 U/L 03/15/2021 [facility] 2:33 PM CDT Protein Total 7.6 6.8 - 8.8 03/15/2021 [facility] g/dL 2:33 PM CDT Albumin 3.9 3.4 - 5.0 03/15/2021 [facility] g/dL 2:33 PM CDT Bilirubin Total 0.2 0.2 - 1.3 03/15/2021 [facility] mg/dL 2:33 PM CDT GFR Estimate >90 >60 03/15/2021 [facility] mL/min/1.7 2:33 PM CDT 3m2 Comment: [...] Organization Address City/State/[place] [address] [phone] Acute Care Lab [address] [place] [address]. Room # [address] [place] [address], [facility] [phone] Acute Care Lab [address] [place] [address]. Room # 2186 D dimer quantitative (03/15/2021 2:05 PM CDT) Analysis Performed At Patho logist Time Signature D-Dimer 0.27 0.00 - 03/15/2021 [facility] Quantitative 0.50 ug/mL 2:23 PM CDT FEU Specimen Anatomical Collection Method / Collection Time Recei shakeel Time (Source) Location / Volume Laterality Blood VENOUS LINE / Venipuncture / 03/15/2021 2:05 2:10 Unknown Unknown PM CDT PM CDT Narrative [facility] - 03/15/2021 2:23 PM CDT This D-dimer assay is intended for use i n conjunction with a clinical pretest probability assessment model to exclude pulmonary embolism (PE) and deep venous thrombosis (DVT) in outpatients suspecte d of PE or DVT. The cut-off value is 0.50 ug/mL FEU. Arnaldo Gutierrez MD LAB - BLOOD ORDERABLES Performing Organization Address [facility]/[place] [address] Acute Care Lab [address] [place] [address]. Room [address] [place] [address], [facility] [phone] Acute Care Lab [address] [place] [address]. Room # 2186 EKG 12-lead, tracing only [...] 600 mg 1406 (Given - Provider: Gayle Ivan, RN)1730 (Canceled Entry - Provider: Orders Generic Provider - Comment: Automatically canceled at discontinue of medication order) 600 mg, Oral, 3 TIMES DAILY, First dose on Sat03/15/21 at 1355 PHENobarbital (LUMINAL) tablet 64.8 mg (COMPLETED) 1406 (Given - Provider: Gayle Ivan RN) 64.8 mg, Oral, ONCE, On Sat03/15/21 at 1350, For 1 dose documented in this encounter Care Teams Burglar Alarm Superintendent Relationship Specialty Start Date End Date No Ref-Primary, Physician PCP - General 03/15/21 documented as of this encounter
--- OUTSIDE RECORDS SUMMARY | 2022-03-30 16:49 | XMS_ITS | Encounter Summary ---
:1990 Author Organization [facility] Address [address] [place] [address] Care Team Providers Name Role Phone Elsewhere, Pcp Primary Care Provider Unavailable Reason for Visit Auth/Cert Specialty Diagnoses / Procedures Referred By Contact Refer red To Contact Diagnoses Tachycardia Supraventricular (HCC) Procedures VA EP EVAL W SUPRAVENT ABLATE DIAGNOSTIC EPS ABLATION - SVT Referral ID Status Reason Start Date Expiration Date Visits Requ ested Visits Authorized [id number] 1 1 Encounter Details Date Type Department Care Team Description 07/07/2021 Anesthesia Event Division of Cardiovascular Alex Mauro in [facility], SEMICONDUCTOR PACKAGES SEALER, GEOSCIENCE SPECIALIST [place] [address] [address] [facility] [address] [place] [phone] Anesthesia Record Procedure Summary Procedure Name Responsible Anesthesiologist Anesthesia Start Ti me Anesthesia Stop Time DIAGNOSTIC EPS Yee Mauro, AYAKA, 07/07/21 0801 07/07 1107 GEOSCIENCE SPECIALIST Events Date Time Event Comment 07/07/2021 0801 An Start Machine/Equipmen t Checked Infection Precautions Foll owed Procedure/Site Verified NPO Sta tus Verified Supine Standard ASA Mon itors Applied 0833 Turnover to Proceduralist 0838 Proc Start 1054 Proc Fin 1057 Turnover to ANE Staff 1057 an stop data 1107 An End I completed my h andoff to the receiving staff during [facility] we 1. Identified the patient 2. Ident [...] 1,000 units/mL injection 7,000 Units heparin standard 10746 Units/250 mL in 0.45 % Sodium C [...] Erin G, 824 (created via PASHA MARLEY [email or web address] procedure documentation); Size: 20 G; Orientation: Left; [...] Fr.; Ultrasound; 07/07/21; 1043 Percutaneous Access 07/07/21; 0904; 07/07/21 0904 by 07/07/21 10 43 by [...] er 07/18/2021 How often do you attend rastafarian or gnosticism services? 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 documented as of this encounter OR Notes Anesthesia Postprocedure Evaluation - Yee Mauro APRN, CRNA - 07/07/2021 11:35 AM CST Patient: Luisito Rainey Procedure Summary Date: 07/07/21 Room / Location: [facility] H[facility] 110 / RST [facility] Anesthesia Start: 800 Anesthesia Stop: Procedure: [...] Post Op nausea/vomiting: none Hydration status: euvolemic M TABLE ATTENDANT Anesthesia Preprocedure Evaluation - Yee Mauro APRN, [...] Pre-op diagnosis: Tachycardia Supraventricular (HCC) [I47.1] Location: [facility] 110 / RST [facility] Surgeons: Rodrigo Gray M.D., Ph.D. Pertinent [...] with patient /legal guardian or through an systems administrator. Risks/Benefits/Alternatives of Blood transfusion discussed with patient / legal guardian, including an opportunity to ask questions and/or decline some or all transfusion therapies. The patient / legalguardian consented to the use of all blood products, as deemed medically necessary Approval to Proceed: approved for anesthesia M TABLE ATTENDANT Anesthesia Procedure Notes - Yee Mauro APRN, [...] yes Complications - arterial: none ATTESTATION STATEMENT M TABLE ATTENDANT documented in this encounter Plan of Treatment Not on filedocumented as of this encounter Procedures Procedure Name Priority Date/Time Associated Diagnosis Comme nts LDA ANE ARTERIAL Routine 07/07/2021 8:25 AM Resul ts for this LINE INSERTION STEAM TABLE ATTENDANT procedure are in the results section. VA ARTL CATH/CNULA Routine 07/07/2021 8:25 AM Res ults for this MONITOR PERC STEAM TABLE ATTENDANT procedure are i n the results section. documented in this encounter Results VA ARTL CATH/CNULA MONITOR PERC, LDA ANE ARTERIAL LINE INSERTION (07/07/2021 8:25 AM STEAM TABLE ATTENDANT) Narrative Yee Mauro APRN, CRNA - 2021 8:25 AM STEAM TABLE ATTENDANT Yee Mauro APRN, CRNA ? 07/07/2021 ??8:35 [...] caffeine-sodium benzoate injection Given 07/07/2021 9:52 AM STEAM TABLE ATTENDANT 250 mg intravenous, As needed, Starting on Sat07/07/21 at 0919, Anesthesia Intra-op Given 07/07/2021 9:19 AM STEAM TABLE ATTENDANT 250 mg clindamycin in D5W IVPB (CLEOCIN) Given 07/07/2021 8:29 AM STEAM TABLE ATTENDANT 900 mg intravenous, Administer over 30 Minutes, As needed, Starting on Sat07/07/21 at 0829, Anesthesia Intra-op fentaNYL injection (SUBLIMAZE) Given 07/07/2021 10:37 AM STEAM TABLE ATTENDANT 25 mcg intravenous, As needed, Starting on Sat07/07/21 at 1037, Anesthesia Intra-op heparin (porcine) 1,000 unit/mL Given 07/07/2021 10:12 AM STEAM TABLE ATTENDANT 1, 000 Units injection intravenous, As needed, Starting on Sat07/07/21 at 0901, Anesthesia Intra-op Given 07/07/2021 9:44 AM STEAM TABLE ATTENDANT 1,000 Units Given 07/07/2021 9:01 AM STEAM TABLE ATTENDANT 5,000 Units heparin (porcine) 100 Rate/Dose 07/07/2021 18 Units/kg/hr 14.94 Units/mL in NaCl 0.45% 250 Change 10:12 AM STEAM TABLE ATTENDANT mL/hr mL infusion intravenous, Continuous Infusion: Per Instructions PRN, Starting on Sat07/07/21 at 0903, Anesthesia Intra-op Rate/Dose Change 07/07/2021 9:43 AM STEAM TABLE ATTENDANT 15 Units/kg/hr 12.45 mL/hr New Bag 07/07/2021 9:03 AM STEAM TABLE ATTENDANT 12 Units/kg/hr 9.96 mL/hr isoproterenol 4 mcg/mL in NaCl Restarted 07/07/2021 10:25 0.1 mc g/kg/min 124.5 mL/hr 0.9% 250 mL infusion (ISUPREL) AM STEAM TABLE ATTENDANT intravenous, Continuous Infusion: Per Instructions PRN, Starting on Sat07/07/21 at 0939, Anesthesia Intra-op Rate/Dose Change 07/07/2021 10:15 AM STEAM TABLE ATTENDANT 0.1 mcg/kg/min 124.5 mL/hr Rate/Dose Change 07/07/2021 10:08 AM STEAM TABLE ATTENDANT 0.05 mcg/kg/min 62.25 mL/h r lactated ringers New Bag 07/07/2021 8:01 AM STEAM TABLE ATTENDANT intravenous, Continuous Infusion: Per Instructions PRN, Starting on Sat07/07/21 at 0801, Anesthesia Intra-op lactated ringers New Bag 07/07/2021 8:25 AM STEAM TABLE ATTENDANT intravenous, Continuous Infusion: Per Instructions PRN, Starting on Sat07/07/21 at 0825, Anesthesia Intra-op lidocaine (PF) (cardiac) injection Given 07/07/2021 10:40 AM STEAM TABLE ATTENDANT 80 mg intravenous, As needed, Starting on Sat07/07/21 at 1040, Anesthesia Intra-op midazolam (PF) injection (VERSED) Given 07/07/2021 10:58 AM STEAM TABLE ATTENDANT 2 mg intravenous, As needed, Starting on Sat07/07/21 at 1035, Anesthesia Intra-op Given 07/07/2021 10:35 AM STEAM TABLE ATTENDANT 2 mg phenylephrine 80 mcg/mL in Rate/Dose 07/07/2021 9:50 1.2 mcg/kg/min 74.7 mL/hr NaCl 0.9% 250 mL infusion Change AM STEAM TABLE ATTENDANT intravenous, Continuous Infusion: Per Instructions PRN, Starting on Sat07/07/21 at 0845, Anesthesia Intra-op Rate/Dose Change 07/07/2021 9:46 AM STEAM TABLE ATTENDANT 1 mcg/kg/min 62.25 mL/hr Rate/Dose Change 07/07/2021 9:45 AM STEAM TABLE ATTENDANT 0.9 mcg/kg/min 56.025 mL/hr propofol 10 mg/mL infusion Rate/Dose 07/07/2021 100 mcg/kg/min 49.8 mL/hr (DIPRIVAN) Change 10:43 AM STEAM TABLE ATTENDANT intravenous, Continuous Infusion: Per Instructions PRN, Starting on Sat07/07/21 at 0808, Anesthesia Intra-op Restarted 07/07/2021 10:40 AM STEAM TABLE ATTENDANT 75 mcg/kg/min 37.35 mL/hr Rate/Dose Change 07/07/2021 9:36 AM STEAM TABLE ATTENDANT 50 mcg/kg/min 24.9 mL/hr propofol bolus from bag (DIPRIVAN) Given 07/07/2021 10:43 AM STEAM TABLE ATTENDANT 25 mg intravenous, As needed, Starting on Sat07/07/21 at 0807, Anesthesia Intra-op Given 07/07/2021 10:39 AM STEAM TABLE ATTENDANT 50 mg Given 07/07/2021 8:19 AM STEAM TABLE ATTENDANT 50 mg protamine injection Given 07/07/2021 10:39 AM STEAM TABLE ATTENDANT 20 mg intravenous, As needed, Starting on Sat07/07/21 at 1037, Anesthesia Intra-op Given 07/07/2021 10:38 AM STEAM TABLE ATTENDANT 10 mg Given 07/07/2021 10:37 AM STEAM TABLE ATTENDANT 10 mg documented in this encounter Additional Health Concerns Assessment Noted Time PHQ-9 Depression Total Score: 11 09/09/2015 4:10 PM CD T documented as of this encounter Care Teams Volunteer Manager Relationship Specialty Start Date End Date Elsewhere, Pcp PCP - General Internal Medicine 07/04/21 documented as of this encounter
--- OUTSIDE RECORDS SUMMARY | 2022-03-30 16:50 | XMS_ITS | Encounter Summary ---
:1990 Author Organization [facility] Address [address] [place] [address] Care Team Providers Name Role Phone Elsewhere, Pcp Primary Care Provider Unavailable Reason for Visit Reason Comments Remote Patient Monitoring Disconnected Monitor Encounter Details Date Type Department Care Team Description 06/12/2021 Clinical Department of [place], Remote Patient Communication Cardiovascular [place] in [employer], Ph.D. (Disconnected [place], [place] [address] [facility] Monitor) [address] [place] [phone] Social History Tobacco Use Types Packs/Day Years [...] er 07/18/2021 How often do you attend samaritan or adventist services? 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 documented as of this encounter Miscellaneous [...] to this notification or call us at [phone]) S ANALYTICS MANAGER documented in this encounter Plan of Treatment Not on filedocumented as of this encounter Visit Diagnoses Not on filedocumented in this encounter Additional Health Concerns Infection Onset Date Last Indicated Resolved Time COVID19 Pending 07/06/2021 07/06/2021 07/06/2021 5:05 PM SALES ANALYTICS MANAGER Assessment Noted Time PHQ-9 Depression Total Score: 11 09/09/2015 4:10 PM CD T documented as of this encounter Care Teams Manager Supply Chain Planning Relationship Specialty Start Date End Date Elsewhere, Pcp PCP - General Internal Medicine 07/04/21 documented as of this encounter
--- OUTSIDE RECORDS SUMMARY | 2022-03-30 16:50 | XMS_ITS | Encounter Summary ---
:1990 Author Organization [facility] Address [address] [place] [address] Care Team Providers Name Role Phone Unavailable Primary Care Provider Unavailable Encounter Details Date Type Department Care Team Description 10/05/2020 Orders Only [facility] PCP [facility] Sa rubina Lancaster M.D. [address] [place], [place] [phone] (Wo rk) Social History [...] How often do you attend anabaptist or uatsdin services? 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
--- OUTSIDE RECORDS SUMMARY | 2022-03-30 16:50 | XMS_ITS | Encounter Summary ---
:1990 Author Organization [facility] Address [address] [place] [address] Care Team Providers Name Role Phone Unavailable [...] er 07/18/2021 How often do you attend sikhism or advent services? Never 07/18/2021 Do you belong to any clubs or organizations such as sikhism N o 07/18/2021 groups, unions, fraternal or [...] or slept in a penitentiary (including now)? 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
--- OUTSIDE RECORDS SUMMARY | 2022-03-30 16:50 | XMS_ITS | Encounter Summary ---
:1990 Author Organization [facility] Address [address] [place] [address] Care Team Providers Name Role Phone Elsewhere, Pcp Primary Care Provider Unavailable Encounter Details Date Type Department Care Team Description 07/04/2021 Clinical Communication Department of Nakul Tsang Cardiovascular Medicine Kilo Johnson in [facility] [phone] [address] [facility] (Work) [place] [address] Social History Tobacco Use Types Packs/Day Years [...] How often do you attend buddhism or mosque services? 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 encounter Miscellaneous Notes [...] not unreasonable to take a prn dose R STRAINING BAG WASHER documented in this encounter Plan of Treatment Not on filedocumented as of this encounter Visit Diagnoses Not on filedocumented in this encounter Additional Health Concerns Infection Onset Date Last Indicated Resolved Time COVID19 Pending 07/06/2021 07/06/2021 07/06/2021 5:05 PM COLOR STRAINING BAG WASHER Assessment Noted Time PHQ-9 Depression Total Score: 11 09/09/2015 4:10 PM CD T documented as of this encounter Care Teams Plant Protection Guard Relationship Specialty Start Date End Date Elsewhere, Pcp PCP - General Internal Medicine 07/04/21 documented as of this encounter
--- OUTSIDE RECORDS SUMMARY | 2022-03-30 16:50 | XMS_ITS | Encounter Summary ---
:1990 Author Organization [facility] Address [address] [place] [id number] Care Team Providers Name Role Phone Elsewhere, Pcp Primary Care Provider Unavailable Reason for Referral Outpatient (Routine) - Closed Specialty Diagnoses / Procedures Referred By Contact Refer red To Contact Diagnoses Tachycardia Supraventricular (HCC) Rodrigo [facility] Procedures Echo Transthoracic (TTE) Karley, Ph.D. [address] [place] [phone] Referral ID Status Reason Start Date Expiration Date Visits Requ ested Visits Authorized [id number] Closed 05/26/2021 05/26/2022 1 1 utpatient (Routine) - Closed Specialty Diagnoses / Procedures Referred By Contact Refer red To Contact Diagnoses Tachycardia Supraventricular (HCC) Rodrigo Gray [facility] Procedures ECG 12 Lead Karley, Ph.D. [address] [place] [address] [phone] Referral ID Status Reason Start Date Expiration Date Visits Requ ested Visits Authorized [id number] Closed 05/26/2021 05/26/2022 1 1 ENGINEER Encounter Details Date Type Department Care Team Description 05/26/2021 Clinical Communication Department of Lorin Rodriguez Cardiovascular Medicine [place], [place] in [facility] [address] [facility] [address] [place] [phone] Social History Tobacco Use Types Packs/Day Years [...] How often do you attend synagogue or anabaptism services? 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 ENGINEER Telephone Encounter - Jessica Mcgarry - 07/06/2021 7:43 AM CST Forms have been received and emailed to [place] for completion. ENGINEER Telephone Encounter - Sachin Ghosh R.N. - [...] following references were used: nursing clinical judgement ENGINEER Telephone Encounter - Shakira Cerrato - 06/14/2021 1:50 PM CST This is scheduled, PAG Mailed. Robert Rosenberg ENGINEER Telephone Encounter - Lorin Rodriguez R.N. - 05/26/2021 12:28 PM RATE ENGINEER Contacted Luisito TJeremie Rainey regarding the scheduling for their EPS +/- AVNRT ablation. Mr. Rainey was referred by Dr. Gray for this procedure. Had virtual visit with Dr. Gray 05/25/2021- [id number] score of 0 Pre-procedure Appointment: 07/06/2021- COVID testing before noon and rest of testing after COVDI testing- will need FTF visit with TV NEWS DIRECTOR as well. Pre-Procedure Testing Ordered: labs including Type and screen, CXR , Echo and COVID tesitng Pre-Procedure Testing Completed:labs 03/19/2021 GFR >560,TSH 1.62 02/19/2021 Case Urgency:elective-SDD current orders active in EMR Procedure Date: 07/07/2021 Procedure: EPS +/- AVNRT redo with Dr. Gray Calling In for your Report Time: The night before the procedure, please call the [facility] Service Line ([phone]) or the [facility] Backup Line ([phone]) between 7pm and midnight to find out what time to arrive. This automated phone line will have you type in your [facility] Number (#) and birthdate () to determine your arrival time. On the day of your procedure: Check into [facility], [facility] 4th Floor (east elevators) at the [facility] 4D desk. Youdo not need to check [...] to either live within 100 miles of [place], [place] or spend the night in [place], [place] postprocedure. If you live within 100 miles and live greater than 30 minutes outside of [place], [place]); it is highly recommended that you spend the night in [place], [place]. ??? If you experience any complications or have questions post procedure overnight, please call the [facility] Property Management Bookkeeper at: [phone] and ask for [employer]. Theywill connect you to the on-call provider to assist you further. ??? You will receive sedation for your procedure, so an adult commercial collections driver and supervision is required for24 hours [...] free to reach out to us at [phone]. ??? If you have any concerns or questions regarding your schedule, please contact the scheduling team at [phone]. ??? If you have any concerns or questions about your insurance or procedure coverage please contact our business office at [phone]. COVID Screening Questions: 1. Do you, anyone [...] vaccinated with booster Testing Information: ?? Location: [facility]. ?? If your Covid nasal swab is positive, we will contact you to reschedule your procedure. ?? If your Covid tests are not resulted in time for your procedure, expect your procedure to be postponed or rescheduled to a later date. [facility] Specific Instructions: ?? We encourage you to check [email or web address] for more information as these instructions may change before your procedural date. ?? Must wear a mask at ALL times while on [facility] [place] (except for when eating or showering). ?? [...] notify your care teams at [facility] if you develop COVID like symptoms prior to your appointments or procedures as your appointment or procedure may need to be modified. The patient verbalized understanding and agreement with instructions. All questions were answered. ENGINEER documented in this encounter Plan of Treatment Not on filedocumented as of this encounter Results ECG 12 Lead (07/06/2021 11:26 AM RATE ENGINEER) P athologist Signature Ventricular Rate 86 BPM MUSE ECG/Min UT Interval 136 ms MUSE QRSD Interval 86 ms MUSE QT Interval 342 ms MUSE QTC Interval 409 ms MUSE P Mills 41 degrees MUSE R Mills 3 degrees MUSE T [place] 34 degrees MUSE Specimen Anatomical Collection Method Collection Time Receive d Time (Source) Location / / Volume Laterality 07/06/2021 11:26 07/06/2021 AM RATE ENGINEER 11:29 AM RATE ENGINEER Impressions MUSE - 07/06/2021 11:29 AM RATE ENGINEER Normal sinus rhythm Normal ECG When [...] (with reflex Antibody ID) (07/06/2021 11:10 AM RATE ENGINEER) [facility] [employer] Method Time Signature ABORh A Pos Not 07/06/2021 ETRM applicable 12:04 PM RATE ENGINEER Antibody Negative Negative 07/06/2021 ETRM Screen 12:15 PM RATE ENGINEER Type & Screen 07/09/2021 07/06/2021 ETRM Expiration 23:59 12:04 PM RATE ENGINEER Testing Emily DEFAULT 07/06/2021 ETRM Location 11:28 AM RATE ENGINEER Specimen Anatomical Collection Method Collection Time Receive d Time (Source) Location / / Volume Laterality Blood (Blood, 07/06/2021 11:10 07/06/2021 Venous) AM RATE ENGINEER 11:28 AM RATE ENGINEER Rodrigo Gray M.D., Ph.D. LAB BLOOD BANK ANGELLA T ORDERABLES Performing Organization Address City/State/ZIP Code Phon e Number [facility] - [address] [place], [place] [address] [facility] [place] [address] [facility] [address] (ABNORMAL) CBC without Differential (07/06/2021 11:10 AM RATE ENGINEER) [facility] [employer] Method Time Signature Hemoglobin 16.2 13.2 - 07/06/2021 DTL 16.6 g/dL 11:53 AM RATE ENGINEER Hematocrit 48.5 38.3 - 07/06/2021 DTL 48.6 % 11:53 AM RATE ENGINEER Erythrocytes 5.49 4.35 - 07/06/2021 DTL 5.65 11:53 AM RATE ENGINEER x10(12)/L MCV 88.3 78.2 - 07/06/2021 DTL 97.9 fL 11:53 AM RATE ENGINEER RBC Distrib Width 12.1 11.8 - 07/06/2021 DTL 14.5 % 11:53 AM RATE ENGINEER Platelet Count 236 135 - 317 07/06/2021 DTL x10(9)/L 11:53 AM RATE ENGINEER Leukocytes 9.9 (H) 3.4 - 9.6 07/06/2021 DTL x10(9)/L 11:53 AM RATE ENGINEER Specimen Anatomical Collection Method Collection Time Receive d Time (Source) Location / / Volume Laterality Blood (Blood, 07/06/2021 11:10 07/06/2021 Venous) AM RATE ENGINEER 11:45 AM RATE ENGINEER Rodrigo Gray M.D., Ph.D. LAB BLOOD ADD-ON Performing Organization Address City/State/ZIP Code Phon e Number [facility] - [address] [place], [place] [address] [facility] [place] [address] [facility] 200 [facility] Basic Metabolic Panel (07/06/2021 11:09 AM RATE ENGINEER) P athologist Signature Potassium, S 4.7 3.6 - 5.2 07/06/2021 DTL mmol/L 12:20 PM RATE ENGINEER Sodium, S 143 135 - 145 07/06/2021 DTL mmol/L 12:20 PM RATE ENGINEER Chloride, S 103 98 - 107 07/06/2021 DTL mmol/L 12:20 PM RATE ENGINEER Bicarbonate, S 28 22 - 29 07/06/2021 DTL mmol/L 12:20 PM RATE ENGINEER Anion Gap 12 7 - 15 07/06/2021 DTL 12:20 PM RATE ENGINEER BUN (Blood Urea 8 8 - 24 07/06/2021 DTL Nitrogen), S mg/dL 12:20 PM RATE ENGINEER Creatinine 0.98 0.74 - 07/06/2021 DTL 1.35 mg/dL 12:20 PM RATE ENGINEER eGFR-Non >90 >=60 07/06/2021 DTL Black/ mL/min/BSA 12:20 PM RATE ENGINEER [place] Comment: ----ADDITIONAL INFORMATION---- Estimated GFR calculated using the 2009 CKD_EPI creatinine equation. eGFR-Black/ >90 >=60 mL/min/BSA 2021 12:20 PM RATE ENGINEER DTL Comment: ----ADDITIONAL INFORMATION---- Estimated GFR calculated using the 2009 CKD_EPI creatinine equation. Calcium, Total, S 9.7 8.6 - 10.0 mg/dL 07/06/2021 12:2 0 PM RATE ENGINEER DTL Glucose, S 99 70 - 140 mg/dL 07/06/2021 12:20 PM RATE ENGINEER DTL Specimen Anatomical Collection Method Collection Time Receive d Time (Source) Location / / Volume Laterality Blood (Blood, 07/06/2021 11:09 07/06/2021 Venous) AM RATE ENGINEER 11:56 AM RATE ENGINEER Rodrigo Gray M.D., Ph.D. LAB BLOOD ADD-ON Performing Organization Address City/State/ZIP Code Phon e Number [facility] - [address] [place], [place] [address] [facility] [place] [address] [facility] [address] DX Chest AP or PA and Lateral 2 Views (07/06/2021 10:50 AM RATE ENGINEER) Anatomical Region Laterality Modality Chest, Thoracic RST LOS, Thoracic ARZ LOS, Thoracic N/A Digital Radiography FLA LOS Specimen (Source) Anatomical Collection Method Collection Time Re ceived Time Location / / Volume Laterality 07/06/2021 10:52 AM RATE ENGINEER Impressions 07/06/2021 11:36 AM RATE ENGINEER No change since 02/19/2021. Negative [facility] ?? Narrative 07/06/2021 11:36 AM RATE ENGINEER EXAM: ??DX CHEST AP OR PA AND LATERAL 2 VIEWS Procedure Note Gato Conway M.D. - 07/06/2021Formatt ing of this note might be different from the original. EXAM: DX CHEST AP OR PA AND LATERAL 2 EWS IMPRESSION: No change since 02/19/2021. Negative [facility] Rodrigo Gray M.D., Ph.D. IMG DIAGNOSTIC SANDHYA GING PROCEDURES SARS CoV-2 RNA, PCR, Varies Asymptomatic (07/06/2021 10:42 AM RATE ENGINEER) [facility] Method Time Signature SARS CoV-2 Swab, 07/06/2021 DTL RNA, PCR, Nasopharynx 5:04 PM RATE ENGINEER Source SARS CoV-2 Undetected Undetected 07/06/2021 DTL RNA, PCR 5:04 PM RATE ENGINEER Comment: SARS-CoV-2 RNA absent. This result does [...] Drug Administration an d is used per placement specialist's instructions. Performance characteristics were verified by [facility] in a manner consistent with CLIA requirements. Visit the CDC website: https://www.cdc.g ov/coronavirus/ for the most recent guidelines on Coron avirus testing. Fact Sheet for Healthcare Providers: https://www.fda.gov/media/951629/downloa d Fact Sheet for Patients: https://www.fda.gov/media/911575/downloa d Specimen Anatomical Collection Method Collection Time Receive d Time (Source) Location / / Volume Laterality Varies 07/06/2021 10:42 07/06/2021 (Nasopharynx) AM RATE ENGINEER 11:47 AM RATE ENGINEER Rodrigo Gray M.D., Ph.D. LAB MICROBIOLOGY - GENERAL ORDERABLES Performing Organization Address City/State/ZIP Code Phon e Number [facility] - [address] [place], [place] [address] [facility] [place] [address] [facility] [address] (TTE) 2D ECHO DOPPLER COLOR (07/06/2021 8:49 AM RATE ENGINEER) [facility] Method Time Signature Ejection Fraction 55 [...] / / Volume Laterality 07/06/2021 7:40 AM RATE ENGINEER Impressions 07/06/2021 2:57 PM RATE ENGINEER LEFT VENTRICLE:Normal left ventricular chamber size. Normal [...] For the complete report, see the Order-L [employer] Documents. Narrative 07/06/2021 2:57 PM RATE ENGINEER For the complete report, see the Order-Level [...] original. For the complete report, see the [employer] Documents. Final Impressions 1. Normal left ventricular [...] COVID19 Pending 07/06/2021 07/06/2021 07/06/2021 5:05 PM RATE ENGINEER Assessment Noted Time PHQ-9 Depression Total Score: 11 09/09/2015 4:10 PM CD T documented as of this encounter Care Teams Van Owner Operator Relationship Specialty Start Date End Date Elsewhere, Pcp PCP - General Internal Medicine 07/04/21 documented as of this encounter
--- OUTSIDE RECORDS SUMMARY | 2022-03-30 16:50 | XMS_ITS | Encounter Summary ---
:1990 [address] [facility] Address [address] [place] [address] Care Team Providers Name Role Phone Elsewhere, Pcp Primary Care Provider Unavailable Reason for Visit Auth/Cert Specialty Diagnoses / Procedures Referred By Contact Refer red To Contact Diagnoses Tachycardia Supraventricular (HCC) Procedures RI EP EVAL W SUPRAVENT ABLATE DIAGNOSTIC EPS ABLATION - SVT Referral ID Status Reason Start Date Expiration Date Visits Requ ested Visits Authorized [id number] 1 1 Encounter Details Date Type Department Care Team Description 07/07/2021 Hospital Division of [place], Tachycardia Sup raventricular (HCC); Encounter Cardiovascular Wilmer Aguirreardi a Supraventricular (HCC) Diseases in M.D., Ph.D. [place], [place] [address] [facility] [address] [place] [phone] Social History Tobacco Use Types Packs/Day Years [...] often do you attend jehovah's witness or oriental orthodox services? Never 07/18/2021 Do you belong to [...] or slept in a longterm (including now)? Education Answer Date Recorded What is the highest level of school you have GED or equivale nt 05/20/2021 completed or the highest degree you have received? Sex Assigned at Date Recorded Male 06/01/2020 11:57 AM INVENTORY CONTROL/SHIPPING RECEIVING documented as of this encounter Last Filed Vital Signs Vital Sign Reading Time Taken Comments Blood Pressure 98/43 07/07/2021 12:45 PM INVENTORY CONTROL/SHIPPING RECEIVING Pulse 101 07/07/2021 12:45 PM INVENTORY CONTROL/SHIPPING RECEIVING Temperature 36.9 ??C (98.5 ??F) 07/07/2021 7:18 AM INVENTORY CONTROL/SHIPPING RECEIVING Respiratory Rate - - Oxygen Saturation 100% 07/07/2021 12:45 PM INVENTORY CONTROL/SHIPPING RECEIVING Inhaled Oxygen Concentration - - Weight - - Height - - Body Mass Index - - documented in this encounter Discharge Instructions Discharge InstructionsFYanna prescott - 07/07/2021 12:26 PM CST You were discharged from the [facility] CVD Interventional/Heart Rhythm Service. Please identify [...] 4:00 p.m., contact the Electrophysiology Service at [phone]. For questions occurring after business hours, on weekends, nights, or holidays call [phone] and ask for Electrophysiology Labelling Machine Operator. Heart Failure Assessment: Weigh yourself [...] avoid/skip your follow-up appointments, they are important! NTORY CONTROL/SHIPPING RECEIVING documented in this encounter Medications at Time [...] mouth at 0 03/01/20 21 tablet bedtime. [id number] Take 1 tablet by mouth 0 -minerals [...] instructions were reviewed in detail as per [id number] with patient and family and they verbalized understanding. Follow up appointment is arranged. Patient was dismissed when discharge criteria was met, accompanied byfriendAll questions answered. NTORY CONTROL/SHIPPING RECEIVING documented in this encounter Plan of Treatment Not on filedocumented as of this encounter Procedures Procedure Name Priority Date/Time Associated Diagnosis Comme nts ECG Routine 07/07/2021 11:37 Results for this AM INVENTORY CONTROL/SHIPPING RECEIVING procedure are i n the results section. HEART RHYTHM Routine 07/07/2021 10:57 Tachycardia Results for this PROCEDURE AM INVENTORY CONTROL/SHIPPING RECEIVING Supraventricular (HCC) proce dure are in the results section. ACT, POCT, B Routine 07/07/2021 10:45 Results for this AM INVENTORY CONTROL/SHIPPING RECEIVING procedure are i n the results section. ACT, POCT, B Routine 07/07/2021 10:07 Results for this AM INVENTORY CONTROL/SHIPPING RECEIVING procedure are i n the results section. ACT, POCT, B Routine 07/07/2021 9:40 Results for this AM INVENTORY CONTROL/SHIPPING RECEIVING procedure are i n the results section. ACT, POCT, B Routine 07/07/2021 9:22 Results for this AM INVENTORY CONTROL/SHIPPING RECEIVING procedure are i n the results section. ABG AND LYTES Routine 07/07/2021 9:19 Results for this EG6+, POCT, B AM INVENTORY CONTROL/SHIPPING RECEIVING procedure are in the results section. documented in this encounter Results ECG 12 Lead (07/07/2021 11:37 AM INVENTORY CONTROL/SHIPPING RECEIVING) P athologist Signature Ventricular Rate 92 BPM MUSE ECG/Min RI Interval 144 ms MUSE QRSD Interval 90 ms MUSE QT Interval 346 ms MUSE QTC Interval 427 ms MUSE P [place] 51 degrees MUSE R [place] -3 degrees MUSE T Wave [place] 43 degrees MUSE Specimen Anatomical Collection Method Collection Time Receive d Time (Source) Location / / Volume Laterality 07/07/2021 11:37 07/07/2021 AM INVENTORY CONTROL/SHIPPING RECEIVING 11:38 AM INVENTORY CONTROL/SHIPPING RECEIVING Impressions MUSE - 07/07/2021 11:38 AM INVENTORY CONTROL/SHIPPING RECEIVING Normal sinus rhythm Normal ECG When compared [...] M.D., Ph.D. ECG ORDERABLES Performing Organization Address City/State/[facility] Phon e Number MUSE MUSE NA DIAGNOSTIC EPS (07/07/2021 10:57 AM INVENTORY CONTROL/SHIPPING RECEIVING) Anatomical Region Laterality Modality X-Ray Angiography Specimen (Source) Anatomical Collection Method Collection Time Re ceived Time Location / / Volume Laterality 07/07/2021 8:38 AM INVENTORY CONTROL/SHIPPING RECEIVING Narrative 07/07/2021 11:38 AM INVENTORY CONTROL/SHIPPING RECEIVING For the complete report, see the Order-L [...] (Activated Clotting Time), POCT (07/07/2021 10:45 AM INVENTORY CONTROL/SHIPPING RECEIVING) P athologist Signature Activated 114 84 - 139 07/07/2021 PCSM Clotting Time, sec 10:52 AM INVENTORY CONTROL/SHIPPING RECEIVING POCT Specimen Anatomical Collection Method Collection Time Receive d Time (Source) Location / / Volume Laterality Blood 07/07/2021 10:45 07/07/2021 AM INVENTORY CONTROL/SHIPPING RECEIVING 10:53 AM INVENTORY CONTROL/SHIPPING RECEIVING Unknown Provider LAB POCT ORDERABLES - DEVICE Performing Organization Address City/State/ZIP Code Phon e Number POC RST [facility] INPATIENT [address] [place], [place] [address] LABS PCSM [facility] [place] [address] [place] P[place] [address] (ABNORMAL) ACT (Activated Clotting Time), POCT (07/07/2021 10:07 AM INVENTORY CONTROL/SHIPPING RECEIVING) P athologist Signature Activated 211 (H) 84 - 139 07/07/2021 PCSM Clotting Time, sec 10:16 AM INVENTORY CONTROL/SHIPPING RECEIVING POCT Specimen Anatomical Collection Method Collection Time Receive d Time (Source) Location / / Volume Laterality Blood 07/07/2021 10:07 07/07/2021 AM INVENTORY CONTROL/SHIPPING RECEIVING 10:17 AM INVENTORY CONTROL/SHIPPING RECEIVING Unknown Provider LAB POCT ORDERABLES - DEVICE Performing Organization Address City/State/[facility] Code Phon e Number POC [facility]ST [facility] INPATIENT [address] [place], [place] [address] [place] [address] [place] POC [address] (ABNORMAL) ACT (Activated Clotting Time), POCT (07/07/2021 9:40 AM INVENTORY CONTROL/SHIPPING RECEIVING) P athologist Signature Activated 211 (H) 84 - 139 07/07/2021 PCSM Clotting Time, sec 9:49 AM INVENTORY CONTROL/SHIPPING RECEIVING POCT Specimen Anatomical Collection Method Collection Time Receive d Time (Source) Location / / Volume Laterality Blood 07/07/2021 9:40 AM 2 9:49 INVENTORY CONTROL/SHIPPING RECEIVING AM INVENTORY CONTROL/SHIPPING RECEIVING Unknown Provider LAB POCT ORDERABLES - DEVICE Performing Organization Address City/[facility] Phon e Number POC [facility] IN[facility]IENT [address] [place], [place] [address] [place] [address] [place] P[facility] [address] (ABNORMAL) ACT (Activated Clotting Time), POCT (07/07/2021 9:22 AM INVENTORY CONTROL/SHIPPING RECEIVING) P athologist Signature Activated 216 (H) 84 - 139 07/07/2021 PCSM Clotting Time, sec 9:33 AM INVENTORY CONTROL/SHIPPING RECEIVING POCT Specimen Anatomical Collection Method Collection Time Receive d Time (Source) Location / / Volume Laterality Blood 07/07/2021 9:22 AM 2 9:33 INVENTORY CONTROL/SHIPPING RECEIVING AM INVENTORY CONTROL/SHIPPING RECEIVING Unknown Provider LAB POCT ORDERABLES - DEVICE Performing Organization Address City/[facility] Phon e Number POC [facility] [address] [place], [place] [address] [place] [address] [place] P[facility] [address] (ABNORMAL) ABG and Lytes, POCT (07/07/2021 9:19 AM INVENTORY CONTROL/SHIPPING RECEIVING) P athologist Signature Sample Site, Artline 07/07/2021 PCLX POCT 9:33 AM INVENTORY CONTROL/SHIPPING RECEIVING Comment: ----ADDITIONAL INFORMATION---- Performed at the Point of Care pH, POCT 7.34 (L) 7.35 - 7.45 07/07/2021 9:33 AM INVENTORY CONTROL/SHIPPING RECEIVING PCLX Comment: ----ADDITIONAL INFORMATION---- Performed at the Point of Care pCO2, POCT 51 (H) 35 - 48 mm Hg 07/07/2021 9:33 AM INVENTORY CONTROL/SHIPPING RECEIVING PC LX Comment: ----ADDITIONAL INFORMATION---- Performed at the Point of Care pO2, POCT 151 (H) 83 - 108 mm Hg 07/07/2021 9:33 AM INVENTORY CONTROL/SHIPPING RECEIVING PC LX Comment: ----ADDITIONAL INFORMATION---- Performed at the Point of Care Base, POCT 2 -2 - 3 mmol/L 07/07/2021 9:33 AM INVENTORY CONTROL/SHIPPING RECEIVING PC LX Comment: ----ADDITIONAL INFORMATION---- Performed at the Point of Care HCO3, POCT 28 (H) 22 - 26 mmol/L 07/07/2021 9:33 AM INVENTORY CONTROL/SHIPPING RECEIVING P CLX Comment: ----ADDITIONAL INFORMATION---- Performed at the Point of Care Sodium, POCT, B 140 135 - 145 mmol/L 07/07/2021 9:33 A M INVENTORY CONTROL/SHIPPING RECEIVING PCLX Comment: ----ADDITIONAL INFORMATION---- Performed at the Point of Care Potassium, POCT, B 3.5 (L) 3.6 - 5.2 mmol/L 07/07/2021 9:3 3 AM INVENTORY CONTROL/SHIPPING RECEIVING PCLX Comment: ----ADDITIONAL INFORMATION---- Performed at the Point of Care Hematocrit, POCT, B 41.0 38.3 - 48.6 % 07/07/2021 9:33 AM INVENTORY CONTROL/SHIPPING RECEIVING PCLX Comment: ----ADDITIONAL INFORMATION---- Performed at the Point of Care Specimen Anatomical Collection Method Collection Time Receive d Time (Source) Location / / Volume Laterality Blood 07/07/2021 9:19 AM 9:33 INVENTORY CONTROL/SHIPPING RECEIVING AM INVENTORY CONTROL/SHIPPING RECEIVING Unknown Provider LAB POCT ORDERABLES - DEVICE Performing Organization Address City/State/ZIP Code Phon e Number POC [facility] [address] [place] [address] [facility] [place] [address] [place] [facility] [address] documented in [...] 120 mg (CARDIZEM Given 07/07/2021 2:46 PM INVENTORY CONTROL/SHIPPING RECEIVING 120 mg CD/CARTIA XT) 120 mg, oral, Once, On Sat07/07/21 at 1430, For 1 dose, PACU (only), Swallow whole. Do NOT crush, chew or open capsule. erythromycin 5 mg/gram (0.5 %) ophthalmic Given 07/07/2021 2:46 PM INVENTORY CONTROL/SHIPPING RECEIVING 1 cm ointment 1 cm (ROMYCIN) 1 [...] 1 mg (ATIVAN) Given 07/07/2021 12:25 PM INVENTORY CONTROL/SHIPPING RECEIVING 1 mg 1 mg, oral, Once, On Sat07/07/21 at 1145, For 1 dose, PACU (only) nicotine polacrilex (NICORETTE) 2 mg gum - ADS Override Pull Starting on Sat07/07/21 at 1147, For 1 dose, Created b y cabinet override nicotine polacrilex gum 4 mg (NICORETTE) Given 07/07/2021 12:26 PM INVENTORY CONTROL/SHIPPING RECEIVING 4 mg 4 mg, buccal, Every 1 [...] Recently Administered Medications Times are shown in INVENTORY CONTROL/SHIPPING RECEIVING. Scheduled Medication Order 07/05/2021 07/06/2021 07/07/2021 dilTIAZem [...] ) 1446 (Given - Provider: Daxa Adler R.N.) 1 cm, right eye, 2 times daily, First do se on Sat07/07/21 at 1345, For 3 days, PACU (only) LORazepam tablet 1 mg (ATIVAN) (COMPLETED) 1225 (Given - Provider: Daxa Adler R.N.) 1 mg, oral, Once, On Sat07/07/21 at [...] documented as of this encounter Care Teams Sales Support Technician Relationship Specialty Start Date End Date Elsewhere, Pcp PCP - General Internal Medicine 07/04/21 documented as of this encounter
--- OUTSIDE RECORDS SUMMARY | 2022-03-30 16:50 | XMS_ITS | Encounter Summary ---
:1990 Author Organization [facility] Address [address] [place] [address] Care Team Providers Name Role Phone Elsewhere, Pcp Primary Care Provider Unavailable Encounter Details Date Type Department Care Team Description 07/06/2021 Hospital Department of [place], Tachycardia Encounter Laboratory Rodrigo Arias Supraventric ulflorencia ([facility]) Medicine and Karley, Ph.D. Pathology, [place] [address] [place] [address], in [facility] [address] [place] [phone] [place] [address] (Work) [place] [address] Social History Tobacco Use Types [...] How often do you attend orthodox or protestant services? 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 [id number] Take 1 tablet by mouth 0 -minerals [...] Tachycardia Results for this DIFFERENTIAL, B AM PHARMACY TECHNOLOGY INSTRUCTOR Supraventricular (HCC) pr ocedure are in the results section. TYPE AND SCREEN Routine 07/06/2021 11:10 Tachycardia Results for this AM PHARMACY TECHNOLOGY INSTRUCTOR Supraventricular (HCC) proce dure are in the results section. BASIC METABOLIC Routine 07/06/2021 11:09 Tachycardia Results for this PANEL, S/P AM PHARMACY TECHNOLOGY INSTRUCTOR Supraventricular (HCC) proce dure are in the results section. documented in this encounter Results Type and Screen (with reflex Antibody ID) (07/06/2021 11:10 AM PHARMACY TECHNOLOGY INSTRUCTOR) [facility] Method Time Signature ABORh A Pos Not 07/06/2021 ETRM applicable 12:04 PM PHARMACY TECHNOLOGY INSTRUCTOR Antibody Negative Negative 07/06/2021 ETRM Screen 12:15 PM PHARMACY TECHNOLOGY INSTRUCTOR Type & Screen 07/09/2021 07/06/2021 ETRM Expiration 23:59 12:04 PM PHARMACY TECHNOLOGY INSTRUCTOR Testing [place] DEFAULT 07/06/2021 ETRM Location 11:28 AM PHARMACY TECHNOLOGY INSTRUCTOR Specimen Anatomical Collection Method Collection Time Receive d Time (Source) Location / / Volume Laterality Blood (Blood, 07/06/2021 11:10 07/06/2021 Venous) AM PHARMACY TECHNOLOGY INSTRUCTOR 11:28 AM PHARMACY TECHNOLOGY INSTRUCTOR Rodrigo Gray M.D., Ph.D. LAB BLOOD BANK ANGELLA T ORDERABLES Performing Organization Address City/State/ZIP Code Phon e Number [facility] - [address] [place], [place] [address] [facility] [address] Laboratories-[facility] [place] [address] (ABNORMAL) CBC without Differential (07/06/2021 11:10 AM PHARMACY TECHNOLOGY INSTRUCTOR) [facility] Method Time Signature Hemoglobin 16.2 13.2 - 07/06/2021 DTL 16.6 g/dL 11:53 AM PHARMACY TECHNOLOGY INSTRUCTOR Hematocrit 48.5 38.3 - 07/06/2021 DTL 48.6 % 11:53 AM PHARMACY TECHNOLOGY INSTRUCTOR Erythrocytes 5.49 4.35 - 07/06/2021 DTL 5.65 11:53 AM PHARMACY TECHNOLOGY INSTRUCTOR x10(12)/L MCV 88.3 78.2 - 07/06/2021 DTL 97.9 fL 11:53 AM PHARMACY TECHNOLOGY INSTRUCTOR RBC Distrib Width 12.1 11.8 - 07/06/2021 DTL 14.5 % 11:53 AM PHARMACY TECHNOLOGY INSTRUCTOR Platelet Count 236 135 - 317 07/06/2021 DTL x10(9)/L 11:53 AM PHARMACY TECHNOLOGY INSTRUCTOR Leukocytes 9.9 (H) 3.4 - 9.6 07/06/2021 DTL x10(9)/L 11:53 AM PHARMACY TECHNOLOGY INSTRUCTOR Specimen Anatomical Collection Method Collection Time Receive d Time (Source) Location / / Volume Laterality Blood (Blood, 07/06/2021 11:10 07/06/2021 Venous) AM PHARMACY TECHNOLOGY INSTRUCTOR 11:45 AM PHARMACY TECHNOLOGY INSTRUCTOR Rodrigo Gray M.D., Ph.D. LAB BLOOD ADD-ON Performing Organization Address City/State/ZIP Code Phon e Number [facility] - [address] [place], [place] [address] [facility] [place] [address] Laboratories-[facility] [address] [facility] Basic Metabolic Panel (07/06/2021 11:09 AM PHARMACY TECHNOLOGY INSTRUCTOR) P athologist Signature Potassium, S 4.7 3.6 - 5.2 07/06/2021 DTL mmol/L 12:20 PM PHARMACY TECHNOLOGY INSTRUCTOR Sodium, S 143 135 - 145 07/06/2021 DTL mmol/L 12:20 PM PHARMACY TECHNOLOGY INSTRUCTOR Chloride, S 103 98 - 107 07/06/2021 DTL mmol/L 12:20 PM PHARMACY TECHNOLOGY INSTRUCTOR Bicarbonate, S 28 22 - 29 07/06/2021 DTL mmol/L 12:20 PM PHARMACY TECHNOLOGY INSTRUCTOR Anion Gap 12 7 - 15 07/06/2021 DTL 12:20 PM PHARMACY TECHNOLOGY INSTRUCTOR BUN (Blood Urea 8 8 - 24 07/06/2021 DTL Nitrogen), S mg/dL 12:20 PM PHARMACY TECHNOLOGY INSTRUCTOR Creatinine 0.98 0.74 - 07/06/2021 DTL 1.35 mg/dL 12:20 PM PHARMACY TECHNOLOGY INSTRUCTOR eGFR-Non >90 >=60 07/06/2021 DTL Black/ mL/min/BSA 12:20 PM PHARMACY TECHNOLOGY INSTRUCTOR [place] Comment: ----ADDITIONAL INFORMATION---- Estimated GFR calculated using the 2009 CKD_EPI creatinine equation. eGFR-Black/ >90 >=60 mL/min/BSA 2021 12:20 PM PHARMACY TECHNOLOGY INSTRUCTOR DTL Comment: ----ADDITIONAL INFORMATION---- Estimated GFR calculated using the 2009 CKD_EPI creatinine equation. Calcium, Total, S 9.7 8.6 - 10.0 mg/dL 07/06/2021 12:2 0 PM PHARMACY TECHNOLOGY INSTRUCTOR DTL Glucose, S 99 70 - 140 mg/dL 07/06/2021 12:20 PM PHARMACY TECHNOLOGY INSTRUCTOR DTL Specimen Anatomical Collection Method Collection Time Receive d Time (Source) Location / / Volume Laterality Blood (Blood, 07/06/2021 11:09 07/06/2021 Venous) AM PHARMACY TECHNOLOGY INSTRUCTOR 11:56 AM PHARMACY TECHNOLOGY INSTRUCTOR Rodrigo Gray M.D., Ph.D. LAB BLOOD ADD-ON Performing Organization Address City/State/ZIP Code Phon e Number [facility] - [address] [place], [place] [address] [facility] [place] [address] Laboratories-[facility] [place] [address] documented in this encounter Visit Diagnoses Diagnosis Tachycardia Supraventricular (HCC) documented in this encounter Additional Health Concerns Infection Onset Date Last Indicated Resolved Time COVID19 Pending 07/06/2021 07/06/2021 07/06/2021 5:05 PM PHARMACY TECHNOLOGY INSTRUCTOR Assessment Noted Time PHQ-9 Depression Total Score: 11 09/09/2015 4:10 PM CD T documented as of this encounter Care Teams Restaurant Lead Relationship Specialty Start Date End Date Elsewhere, Pcp PCP - General Internal Medicine 07/04/21 documented as of this encounter
--- OUTSIDE RECORDS SUMMARY | 2022-03-30 16:50 | XMS_ITS | Encounter Summary ---
:[address] [facility] Address [address] [place] [address] Care Team Providers Name Role Phone Unavailable Primary Care Provider Unavailable Reason for Visit Reason Comments Medication Question Encounter Details Date Type Department Care Team Description 06/14/2021 Clinical Department of [place], Medication Communication Cardiovascular Rodrigo Arias, Question Medicine in M.D., Ph.D. [place], [place] [address] [place] [address] [address] [place] [address] [phone] Social History Tobacco Use Types Packs/Day Years [...] How often do you attend protestant or holiness services? 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 OLOGY MANAGER Telephone Encounter - Sameera Luong - 06/14/2021 3:04 PM CST SUBJECTIVE CHIEF COMPLAINT / REASON FOR CALL Medication Question Name of caller: Mr. Luisito Rainey (patient) Patient expects communication via portal: No Phone number: [phone] (he may be at work and unable [...] any change is needed for his Corlanor OLOGY MANAGER documented in this encounter Plan of Treatment Not on filedocumented as of this encounter Visit Diagnoses Not on filedocumented in this encounter Additional Health Concerns Assessment Noted Time PHQ-9 Depression Total Score: 11 09/09/2015 4:10 PM CD T documented as of this encounter
--- OUTSIDE RECORDS SUMMARY | 2022-03-30 16:50 | XMS_ITS | Encounter Summary ---
:1990 Author Organization [facility] Address [address] [place] [address] Care Team Providers Name Role Phone Elsewhere, Pcp Primary Care Provider Unavailable Reason for Referral Outpatient (Routine) - Closed Specialty Diagnoses / Procedures Referred By Contact Refer red To Contact Diagnoses Tachycardia Supraventricular (HCC) Rodrigo Gray [facility] Procedures Echo Transthoracic (TTE) Karley, Ph.D. [address] [place] [phone] Referral ID Status Reason Start Date Expiration Date Visits Requ ested Visits Authorized [id number] Closed 05/26/2021 05/26/2022 1 1 [employer] SPECIAL EDUCATION TEACHER Reason for Visit Outpatient (Routine) - Closed Specialty Diagnoses / Procedures Referred By Contact Refer red To Contact Diagnoses Tachycardia Supraventricular (HCC) Rodrigo Gray [facility] Procedures Echo Transthoracic (TTE) Karley, Ph.D. [address] [place] [phone] Referral ID Status Reason Start Date Expiration Date Visits Requ ested Visits Authorized [id number] Closed 05/26/2021 05/26/2022 1 1 Encounter Details Date Type Department Care Team Description 07/06/2021 Hospital Department of [place], Tachycardia Encounter Cardiovascular Rodrigo Arias Supraventr icular (HCC) Diseases in Karley, Ph.D. [place], [place] 200 [facility] 200 [place] [phone] [phone] Social History Tobacco Use Types Packs/Day Years [...] often do you attend latter day or yarsani services? 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 [id number] Take 1 tablet by mouth 0 -minerals [...] Tachycardia Results for this DOPPLER COLOR AM MIDDLE SCHOOL SPECIAL EDUCATION TEACHER Supraventricular (HCC) proc edure are in the results section. documented in this encounter Results (TTE) 2D ECHO DOPPLER COLOR (07/06/2021 8:49 AM MIDDLE SCHOOL SPECIAL EDUCATION TEACHER) [facility] gist Method Time Signature Ejection Fraction 55 [...] / / Volume Laterality 07/06/2021 7:40 AM MIDDLE SCHOOL SPECIAL EDUCATION TEACHER Impressions 07/06/2021 2:57 PM MIDDLE SCHOOL SPECIAL EDUCATION TEACHER LEFT VENTRICLE:Normal left ventricular chamber size. Normal [...] Order-L evel Documents. Narrative 07/06/2021 2:57 PM MIDDLE SCHOOL SPECIAL EDUCATION TEACHER For the complete report, see the Order-Level [...] original. For the complete report, see the [employer]fly-L Black Raven and Stag Documents. Final Impressions 1. Normal left ventricular [...] COVID19 Pending 07/06/2021 07/06/2021 07/06/2021 5:05 PM MIDDLE SCHOOL SPECIAL EDUCATION TEACHER Assessment Noted Time PHQ-9 Depression Total Score: 11 09/09/2015 4:10 PM CD T documented as of this encounter Care Teams Veterinary X Ray Operator Relationship Specialty Start Date End Date Elsewhere, Pcp PCP - General Internal Medicine 07/04/21 documented as of this encounter
--- OUTSIDE RECORDS SUMMARY | 2022-03-30 16:50 | XMS_ITS | Encounter Summary ---
:1990 Author Organization [facility] Address [address] [place] [address] Care Team Providers Name Role Phone Unavailable Primary Care Provider Unavailable Reason for Visit Appointment Request (Routine) - Closed Specialty Diagnoses / Procedures Referred By Referred To Contact Contact Cardiovascular Disease Diagnoses Tachycardia Supraventricular (HCC) Referral ID Status Reason Start Date Expiration Date Visits Requ ested Visits Authorized [id number] Closed 04/03/2021 04/03/2022 1 1 Encounter Details Date Type Department Care Team Description 05/25/2021 Virtual Visit Department of [place], Tachycardia Cardiovascular Rodrigo Arias, Supraventr icular ([facility]) Medicine in M.D., Ph.D. (Primary Dx) [place], [place] [address] [place] [address] [address] [place] [address] [phone] Social History Tobacco Use Types Packs/Day Years [...] er 07/18/2021 How often do you attend gnosticism or hoahaoism services? 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 - 05/25/2021 3:00 PM CST SUBJECTIVE REASON FOR CONSULT SVT. HISTORY OF PRESENT ILLNESS This is a dpp-qebv-iv-face visit done in the setting [place] [address] according to [place] institutional guidelines. This was done via telephone [...] palpitations. He has been treated up in [place] with Corlanor as well as 75 mg [...] Donald M.D., Ph.D. CT CT Job ID: [id number] L MANAGER documented in this encounter Plan of Treatment Not on filedocumented as of this encounter Visit Diagnoses Diagnosis Tachycardia Supraventricular (HCC) - [facility] documented in this encounter Additional Health Concerns Assessment Noted Time PHQ-9 Depression Total Score: 11 09/09/2015 4:10 PM CD T documented as of this encounter
--- OUTSIDE RECORDS SUMMARY | 2022-03-30 16:50 | XMS_ITS | Encounter Summary ---
:1990 Author Organization [facility] Address [address] [place] [address] Care Team Providers Name Role Phone Elsewhere, Pcp Primary Care Provider Unavailable Reason for Visit Reason Comments Rapid Heart Rate Pt called remote monitoring to talk about his elevated HR Encounter Details Date Type Department Care Team Description 07/03/2021 Documentation RST CCM Vinicius Kaci Rapid Heart Rate (Pt [address] [facility], C.N.P., called remote [place], [place] M.S.N. monitoring to talk [phone] about his eleva leeann HR) Social History [...] How often do you attend adventism or yazidi services? 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 - 07/03/2021 9:04 PM CST Remote [...] was 160's. Upon review of monitor per ecologist technician his highest rate was 147 today in an SVT. Due to pts concern, I contacted this patient at the following phone number: [phone] He reported that he was awake at [...] his BB. Kaci Colvin APRN, C.N.P., M.S.N. [facility] CICU RST [facility] Pager: [phone] (CVICU BAT CARRIER) ER HOUSE SUPERVISOR Rodrigo Donald M.D., Ph.D. - 07/03/2021 9:04 [...] not unreasonable to take a prn dose ER HOUSE SUPERVISOR documented in this encounter Plan of Treatment Not on filedocumented as of this encounter Visit Diagnoses Not on filedocumented in this encounter Additional Health Concerns Assessment Noted Time PHQ-9 Depression Total Score: 11 09/09/2015 4:10 PM CD T documented as of this encounter Care Teams Hand Lacer Relationship Specialty Start Date End Date Elsewhere, Pcp PCP - General Internal Medicine 07/04/21 documented as of this encounter
--- OUTSIDE RECORDS SUMMARY | 2022-03-30 16:50 | XMS_ITS | Encounter Summary ---
:[address] [facility] Address [address] [place] [address] Care Team Providers Name Role Phone Unavailable Primary Care Provider Unavailable Reason for Visit Outpatient (Routine) - Canceled Specialty Diagnoses / Procedures Referred By Contact Refer red To Contact Diagnoses Tachycardia Supraventricular (HCC) Rodrigo Gray V., [facility] Procedures ECG Event Recorder Karley, Ph.D. [address] [place] [address] Referral ID Status Reason Start Date Expiration Date Visits V isits Requested Authorized [id number] Canceled 05/25/2021 05/25/2022 1 1 Encounter Details Date Type Department Care Team Description 05/26/2021 Hospital Division of [place], Tachycardia Encounter Cardiovascular Rodrigo Arias, Supraventr icular (HCC) Diseases in Karley, Ph.D. [place], [place] [address] [place] [address] [place] [phone] Social History Tobacco Use Types Packs/Day Years [...] How often do you attend sikh or caodaism services? 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 syringe LORazepam (ATIVAN) 1 Take 1 tablet by mouth 0 mg tablet as needed. melatonin 10 mg Take 10 mg by mouth at 0 03/01/20 21 tablet bedtime. lyeyjwhgxhhx-Kq-lxub Take 1 tablet by mouth 0 -minerals [...]
--- OUTSIDE RECORDS SUMMARY | 2022-03-30 16:50 | XMS_ITS | Encounter Summary ---
:1990 Author Organization [facility] Address [address] [place] [address] Care Team Providers Name Role Phone Unavailable [...] er 07/18/2021 How often do you attend holiness or holiness services? 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
--- OUTSIDE RECORDS SUMMARY | 2022-03-30 16:50 | XMS_ITS | Encounter Summary ---
:1990 Author Organization [facility] Address [address] [place] [address] Care Team Providers Name Role Phone Elsewhere, Pcp Primary Care Provider Unavailable Encounter Details Date Type Department Care Team Description 07/06/2021 Hospital Department of Marina, Tachycardia Encounter Radiology, [place] Rodrigo Arias Supravent ricular (HCC) dakota Daniel M.D., Ph.D. [place], [address] [place] [address] [place] [address] [place], [place] [phone] (Work) [phone] Social History Tobacco Use Types Packs/Day Years [...] often do you attend latter day or yarsanism services? 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 qtbnnliygduh-Zd-upsx Take 1 tablet by mouth 0 -minerals [...] AND LATERAL 2 (most inpatients 10:50 AM METER SUPERVISOR Supraventricular (HC C) this procedure VIEWS and all are in the outpatients) results section. documented in this encounter Results DX Chest AP or PA and Lateral 2 Views (07/06/2021 10:50 AM METER SUPERVISOR) Anatomical Region Laterality Modality Chest, Thoracic RST LOS, Thoracic ARZ LOS, Thoracic N/A Digital Radiography FLA LOS Specimen (Source) Anatomical Collection Method Collection Time Re ceived Time Location / / Volume Laterality 07/06/2021 10:52 AM METER SUPERVISOR Impressions 07/06/2021 11:36 AM METER SUPERVISOR No change since 02/19/2021. Negative leslie st. ?? Narrative 07/06/2021 11:36 AM METER SUPERVISOR EXAM: ??DX CHEST AP OR PA AND [...] COVID19 Pending 07/06/2021 07/06/2021 07/06/2021 5:05 PM METER SUPERVISOR Assessment Noted Time PHQ-9 Depression Total Score: 11 09/09/2015 4:10 PM CD T documented as of this encounter Care Teams Avionics Integration Engineer Relationship Specialty Start Date End Date Elsewhere, Pcp PCP - General Internal Medicine 07/04/21 documented as of this encounter
--- OUTSIDE RECORDS SUMMARY | 2022-03-30 16:50 | XMS_ITS | Encounter Summary ---
:1990 Author Organization [facility] Address [address] [place] [address] Care Team Providers Name Role Phone Unavailable Primary Care Provider Unavailable Reason for Visit Reason Comments Self Referral Communication Encounter Details Date Type Department Care Team Description 04/07/2021 Clinical Department of Divorce Mediator Self Referral Communication Cardiovascular , Karley Mills (Communicati on) Medicine in [place], [place] [address] [place] [address] Social History Tobacco Use Types Packs/Day Years [...] How often do you attend faith or quaker services? Never 07/18/2021 Do you belong to [...] or slept in a residential (including now)? 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 Requesting Dr. Gray. Updated CE. Can you please let us know the urgency of this request? Thank you, Anny ARD/STEWARDESS DECK Telephone Encounter - Lacy Palencia - 04/07/2021 2:46 PM CDT RAFFY PAR will let us know when we are okay to schedule. Telephone Encounter - Winston Mckeon R.N. - 04/07/2021 9:42 AM CDT Images from the original note were not included. [facility]' Nurse Chart Review: INDICATION: [...] Completed Testing: ??? ECG from 03/02/2021: ??? Holter/Construction Trades Contractor from 11/13/2020: ??? CXR from 02/19/21: ??? [...] Cycle Length AR PA AH HV QRS [place] QRS Morphology Baseline NSR 781 161 ?? [...] See Anesthesia Note Total Flouro Time: 0 STRIP STAMP STRAIGHTENER Total Flouro Dose: 0 mGy ??? EP Study 12/13/2020- Consent & Avery Protocol Avery protocol was followed. ??TIME OUT conducted just [...] Cycle Length AR PA AH HV QRS [place] QRS Morphology Baseline NSR 688 129 ?? [...] daily), but since admission to [facility] recently the beta-terrence therapy will [...] 09:51 AM To: Rst Cvd Osm Hrs ([place]) Priority: Routine Routing Comments: ??Have they had [...]
--- OUTSIDE RECORDS SUMMARY | 2022-03-30 16:50 | XMS_ITS | Encounter Summary ---
:1990 Author Organization [facility] Address [address] [place] [address] Care Team Providers Name Role Phone Elsewhere, Pcp Primary Care Provider Unavailable Reason for Visit Appointment Request (Routine) - Closed Specialty Diagnoses / Procedures Referred By Referred To Contact Contact Cardiovascular Disease Diagnoses Tachycardia Supraventricular (HCC) Referral ID Status Reason Start Date Expiration Date Visits Requ ested Visits Authorized [id number] Closed 05/26/2021 05/26/2022 1 1 Encounter Details Date Type Department Care Team Description 07/06/2021 Office Visit Department of Meseret Kyle Cardiovascular Medicine AYAKA Parker Supr avenpeytonular ([facility]) in [facility] blayne CJeremieNJeremiePJeremie, M.S.N. (Primary Dx) [address] [place] [address] [address] [place] [address] [phone] Social History Tobacco Use Types Packs/Day Years [...] er 07/18/2021 How often do you attend christian or yarsani services? 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 - 07/06/2021 2:00 PM CST [...] history is well documented in a prior opg-jkrz-uk-face visit with Dr. Donald on 05/25/2021. In [...] He has followed with Dr. Gonzalez at [facility] who has noted no documented [...] Allergies Allergen Reactions ??? Kiwi Anaphylaxis ??? [place] Anaphylaxis ??? [place] Flavor Other (see comments) [place] ??? Pineapple Anaphylaxis ??? Ascorbate Calcium-Bioflavonoid Other [...] comments) ??? Lemon Other (see comments) ??? [place] Other (see comments) ??? Multivitamin With Iron,Other Minerals Other (see comments) COLD SORE REACTION TO VARIOUS/NUMEROUS ??? [place] Other (see comments) ??? [place] Other (see comments) ??? Choline Other (see [...] 10 mg by mouth at bedtime. ??? mwvovggcgiyf-Cp-wbvt-minerals tablet, Take 1 tablet by mouth as [...] & Screen Expiration 07/09/2021 23:59 Testing Location Supai ASSESSMENT / PLAN #1 Tachycardia Supraventricular (HCC) [...] in for procedurereport time, a map of [facility], the need to have a road driver, typical procedure length and recovery time, post procedure activity and driving limitations, and when to hold food and fluids. Mr. Rainey was advised to make the following changes to medications: None. Mr. 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 I advised Mr. Rainey, and left a message for Ms. Tara Zavalanis, that we are unable to complete this [...] given. Meseret Kyle APRN, C.N.P., M.S.N. 07/06/2021 EN MEAT CUTTER documented in this encounter Plan of Treatment Not on filedocumented as of this encounter Visit Diagnoses Diagnosis Tachycardia Supraventricular (HCC) - Bette christ documented in this encounter Additional Health Concerns Infection Onset Date Last Indicated Resolved Time COVID19 Pending 07/06/2021 07/06/2021 07/06/2021 5:05 PM FROZEN MEAT CUTTER Assessment Noted Time PHQ-9 Depression Total Score: 11 09/09/2015 4:10 PM CD T documented as of this encounter Care Teams Diffuser Operator Relationship Specialty Start Date End Date Elsewhere, Pcp PCP - General Internal Medicine 07/04/21 documented as of this encounter
--- OUTSIDE RECORDS SUMMARY | 2022-03-30 16:50 | XMS_ITS | Encounter Summary ---
:1990 Author Organization [facility] Address [address] [place] [address] Care Team Providers Name Role Phone Unavailable [...] er 07/18/2021 How often do you attend scientology or rastafarian services? 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
--- OUTSIDE RECORDS SUMMARY | 2022-03-30 16:50 | XMS_ITS | Encounter Summary ---
:1990 Author Organization [facility] Address [address] [place] [address] Care Team Providers Name Role Phone Unavailable Primary Care Provider Unavailable Reason for Visit Reason Comments Appointment medication questions pre pro cedure Encounter Details Date Type Department Care Team Description 06/20/2021 Clinical Department of Tin Container Straightener Appointment Communication Cardiovascular , Karley Mills (medication Medicine in [facility] pre [place] procedure) [address] [place] [address] Social History Tobacco Use Types Packs/Day Years [...] How often do you attend cheondoism or anabaptism services? 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 - 06/22/2021 8:41 AM LEAD WAREHOUSE ASSOCIATE INFORMATION DISCUSSED Called Mr Rainey to let [...] following references were used: nursing clinical judgement WAREHOUSE ASSOCIATE Telephone Encounter - Alba Valdez R.N. - 06/21/2021 2:39 PM LEAD WAREHOUSE ASSOCIATE SUBJECTIVE Patient would like to know if [...] expects communication via portal: No Phone number: [phone] Request topic and what needs to be addressed? Medication Management ?? Goal or summary: stop or continue taking Corlanor ?? Medication/dose: Corlanor? ?? Additional comments: wanting recommendations. WAREHOUSE ASSOCIATE Telephone Encounter - Princess Macias M.S.N. R.N. - 06/21/2021 11:14 AM LEAD WAREHOUSE ASSOCIATE Rodrigo Donald M.D., Ph.D. You 17 hours [...] following references were used: provider Dr. Donald WAREHOUSE ASSOCIATE Telephone Encounter - Yee Shields - 06/20/2021 4:58 PM LEAD WAREHOUSE ASSOCIATE SUBJECTIVE CHIEF COMPLAINT / REASON FOR CALL [...] Appointment Services Specialist Division of Cardiovascular Diseases [address] [address] [email or web address] P RST CVD DEVICE SCHEDULING P RST CVD HRS SCHEDULING WAREHOUSE ASSOCIATE documented in this encounter Plan of Treatment Not on filedocumented as of this encounter Visit Diagnoses Not on filedocumented in this encounter Additional Health Concerns Assessment Noted Time PHQ-9 Depression Total Score: 11 09/09/2015 4:10 PM CD T documented as of this encounter
--- NOTE | 2022-03-30 17:07 | PC.NURSE ---
to room with tylenol with codeine as ordered, pt looks in cup and states, he is only going to give me one for my pain a 8 out of 10...send him back in here, per Dr Wyman offered pt toradol and he wishes to have this now
[2022-03-30] MEDS: KETOROLAC 30 MG/ML inj IM (17:23)
== END 2022-03-30 17:50 | disposition home or self-care (01) ==
PROVIDERS: Emergency Provider Emergency Medicine Emergency Medical Services; PCP Family Medicine
DX: R07.89 Other chest pain (principal)
CPT/HCPCS: 76604; 76705; 93308; 96372; 99283; 99284; A9270; J1885

== ENCOUNTER 2022-06-13 19:31 | Emergency (ER) | payer BC, SELFPAY ==
[2022-06-13 19:45] VITALS: BP 125/86; PULSE 73; RESP 18; TEMP 36.7; O2SAT 99; BMI 21.3
--- NOTE | 2022-06-13 20:03 | ED.NURSE ---
patient is wanting some supplemental O2 at 0.5 liter as feeling hard to breath. explained to patient that pulse is at 99% on room air and per that number not necessary for O2. pt requested to have on for 5 minutes and then can remove. offered to have patient pull mask down when staff is not in the room and patient felt that would not help either and pleaded to have the O2.
[2022-06-13 20:45] VITALS: BP 115/74; PULSE 66; RESP 18; O2SAT 99
[2022-06-13 20:58] LABS: Basophils Absolute Auto 0.03 K/uL (0.00-0.30); Basophils Percent Auto 0.3 % (0.0-3.0); Eosinophils Absolute Auto 0.19 K/uL (0.00-0.50); Eosinophils Percent Auto 1.9 % (0.0-7.0); Hematocrit 43.6 % (37.0-53.0); Hemoglobin* 15.1 gm/dL (13.5-17.5); Immature Granulocytes Abs Auto 0.01 K/uL (0.00-0.30); Immature Granulocytes Pct Auto 0.1 %; Lymphocytes Percent Auto 18.3 % (20-44); Mean Corpuscular HGB Conc 35 gm/dL (32-36); Mean Corpuscular Hemoglobin 31 pg (26-34); Mean Corpuscular Volume 89 fL (80-100); Neutrophils Percent Auto 72.4 % (42.0-72.0); Platelet Count* 234 K/uL (140-440); RDW Coefficient of Variation % 11.9 % (11.5-15.5); Red Blood Count 4.91 m/uL (4.30-5.90); White Blood Count* 10.07 K/uL (4.50-11.00)
[2022-06-13 21:01] LABS: Chloride* 104 mmol/L (96-114)
[2022-06-13 21:02] LABS: Potassium* 3.7 mmol/L (3.6-5.1); Sodium* 139 mmol/L (135-149)
[2022-06-13 21:04] LABS: Creatinine* 0.7 mg/dL (0.5-1.5); Estimated Glomerular Filt Rate 127 ml/min; Slide Review Reflex No
[2022-06-13 21:05] LABS: Blood Urea Nitrogen* 12 mg/dL (5-24); Calcium* 9.2 mg/dL (8.4-10.6); Carbon Dioxide* 27 mmol/L (20-32); Glucose* 78 mg/dL (60-115)
[2022-06-13 21:16] LABS: Troponin, Point-of-Care* 0.05 ng/ml (0.01-0.04)
[2022-06-13 21:19] LABS: Troponin I* < 0.01 ng/mL (0.01-0.04)
[2022-06-13 21:30] VITALS: BP 113/72; PULSE 64; RESP 18; TEMP 36.7; O2SAT 99
[2022-06-13 21:33] LABS: D Dimer Quantitative* < 0.27 ug/ml (0.00-0.50)
[2022-06-13] MEDS: GI COCKTAIL (VISC LIDO/ANTACID) 30 ML PO (22:24)
[2022-06-13 22:30] LABS: Troponin I* < 0.01 ng/mL (0.01-0.04)
[2022-06-13 22:40] VITALS: BP 115/69; PULSE 68; RESP 18; TEMP 36.7; O2SAT 99
[2022-06-13 23:03] VITALS: BP 115/69; PULSE 68; RESP 18; TEMP 36.7
--- NOTE | 2022-06-13 23:52 | ED_ITS ---
HPI - Chest Pain General Date Seen: 06/13/22 Chief Complaint: Chest Pain Stated Complaint: Chest Pain Time Seen by Provider: 06/13/22 20:00 Source: patient Mode of arrival: ambulatory Limitations: no limitations History of Present Illness HPI narrative: Mr. Rainey is a 31-year-old gentleman who reports here with 2 hour onset of centralized chest pain, with no radiation, denies any worsening with breathing, twisting turning, or pressure, tells me he does have a history of SVT with 3 previous ablation is, but took his pulse when this was occurring, never was not elevated. No history of any coronary artery disease, denies any leg swelling, and has had multiple previous workups for chest pain. All of them Have been inconclusive. The current episode occurred while he was at work, he did tell the nurse he wanted oxygen, and then later said he want to try nitroglycerin. He does have a history of substance abuse, a benzodiazepine secondary to his anxiety. MD complaint: chest pain Prior episodes: Yes Onset: during rest Pain location: substernal Pain radiation: none Severity: moderate Quality: tightness, aching and heaviness Relieving factors: nothing Exacerbating factors: nothing Risk Factors Coronary artery disease risk factors: none Thoracic aortic dissection risk factors: none Related Data Home Medications Medication Instructions Recorded Confirmed metoprolol tartrate 25 mg tablet 25 mg PO QDAY 01/04/22 06/13/22 lorazepam 0.5 mg tablet 1 mg PO Q4H PRN benzo withdrawal 06/13/22 06/13/22 sertraline 100 mg tablet 200 mg PO DAILY 06/13/22 06/13/22 Previous Rx's Medication Instructions Recorded diltiazem HCl 120 mg 120 mg PO BID #180 caps 12/07/21 capsule,extended release 12 hr gabapentin 300 mg capsule 300 mg PO BID #60 caps 02/07/22 gabapentin 600 mg tablet 600 mg PO BID #60 tabs 02/07/22 gabapentin 300 mg capsule 300 - 900 mg PO BID #180 caps 03/13/22 Allergies Allergy/AdvReac Type Severity Reaction Status Date / Time rosalva Allergy Severe Throat Verified 03/27/22 09:45 closes up pineapple Allergy Intermediate lips swell Verified 03/27/22 09:45 ascorbic acid Allergy Mild cold sores Verified 03/27/22 09:45 inositol Allergy Mild Cold sores Verified 03/27/22 09:45 lemon oil Allergy Mild Cold sores Verified 03/27/22 09:45 niacinamide Allergy Mild Cold sores Verified 03/27/22 09:45 pantothenic acid Allergy Mild Cold sores Verified 03/27/22 09:45 pyridoxine Allergy Mild Cold sores Verified 03/27/22 09:45 riboflavin (vitamin B2) Allergy Mild Cold sores Verified 03/27/22 09:45 thiamine (vitamin B1) Allergy Mild Cold sores Verified 03/27/22 09:45 cephalexin Allergy Unknown Nausea and Verified 03/27/22 09:45 vomiting Bioflavonoids / grape seed Allergy Mild Cold sores Uncoded 03/27/22 09:45 extract Choline Allergy Mild cold sores Uncoded 03/27/22 09:45 Lemon Flavor Allergy Mild Cold sores Uncoded 03/27/22 09:45 Vitamin B12 Allergy Mild Cold sores Uncoded 03/27/22 09:45 Review of Systems Status of ROS Reports: 10 or more systems reviewed and unremarkable except as noted in History and below PFSH PFSH Medical History Anxiety disorder (07/23/12) Attention deficit disorder (07/23/12) Benzodiazepine abuse Depression (07/23/12) Gastroesophageal reflux disease History of bipolar disorder (09/08/12) History of suicidal ideation (09/08/12) Insomnia Palpitations Supraventricular tachycardia Tobacco use (07/23/12) Surgical History History of radiofrequency ablation (RFA) procedure for cardiac arrhythmia (05/26/19) Family History Mother Aoqgp-Knaseqxpb-Rbmby (WPW) syndrome Social History Narrative: current chewing tobacco use Smoking Status: Never smoker Do you use any of these nicotine containing products: Smokeless Tobacco Second hand tobacco smoke exposure: No How often do you have a drink containing alcohol: never How often do you have six or more drinks on one occasion: Never AUDIT-C Alcohol total score: 0 Non-prescribed substance use: denies use Little interest or pleasure in doing things: nearly every day Feeling down, depressed, or hopeless: nearly every day service: No Exam Narrative Exam Narrative: Patient is speaking normally, no problem with slurring words, oriented x3. Head eyes ears nose and throat exam show equal pupils, no scleral icterus, extraocular muscles are normal, no facial droop, speech is normal, trachea normal and midline. Thyroid normal midline palpable not enlarged. Chest shows symmetrical rise bilaterally, normal auscultation with no wheezes, no increased work of breathing, no overt bruising or lesions seen, no tenderness is noted on auscultation. Heart sounds normal with no S3-S4 no murmurs clicks or gallops. Abdomen shows no obvious masses or hepatosplenomegaly, no organomegaly, bowel sounds are normal in all quadrants. No tenderness is noted also in all quadrants. Upper and lower extremities show normal power, normal range of motion, pulses are normal, sensations normal, fine motor movements are normal, pelvis is stable to rocking. Cervical spine shows normal range of motion, and palpably not tender. Thoracic spine shows normal range of motion, and palpably not tender, lumbar spine shows no tenderness to palpation percussion and is otherwise normal range of motion. Skin shows no rashes, petechiae or eccymosis. Const Vital Signs, click to edit/add: Vital Signs - 24 hr 06/13/22 19:45 06/13/22 21:30 06/13/22 20:45 Temperature 98.0 F 98.0 F Pulse Rate [Right Pulse Oximeter] 73 64 66 Respiratory Rate 18 18 18 Blood Pressure [Right Upper Arm] 125/86 113/72 115/74 Pulse Oximetry 99 99 99 Oxygen Delivery Method Room Air Room Air Room Air 06/13/22 22:40 06/13/22 23:03 Temperature 98.0 F 98.0 F Pulse Rate [Right Pulse Oximeter] 68 68 Respiratory Rate 18 18 Blood Pressure [Right Upper Arm] 115/69 115/69 Pulse Oximetry 99 Oxygen Delivery Method Room Air Course Course Hospital Course: I initially to reassure tried to reassure Luisito, but of course this did not work, his EKG was entirely normal, and his point of care troponin unfortunately was elevated at 0.05, I did repeat this in the lab which was 0.01. I also did a D-dimer which is negative, CBC was normal, as basic metabolic profile was normal. Repeat troponin 90 minutes later was normal along with his EKG. Despite this he was not reassured by the examination, and want something for the pain, explained him I will give him Tylenol but nothing else, he requested Tylenol #3 , I did not want to do this, I explained to him and we will try reassurance and follow-up with primary care for Vital Signs Vital signs: Initial Vital Signs Respiratory Effort Spontaneous 06/13/22 19:39 Respiratory Depth Normal 06/13/22 19:39 Respiratory Pattern 06/13/22 19:39 Vital Signs Temperature 98.0 F 06/13/22 19:45 Pulse Rate 73 06/13/22 19:45 Respiratory Rate 18 06/13/22 19:45 Blood Pressure 125/86 06/13/22 19:45 Pulse Oximetry 99 06/13/22 19:45 Oxygen Delivery Method 06/13/22 19:45 Temperature 98.0 F 06/13/22 23:03 Pulse Rate 68 06/13/22 23:03 Respiratory Rate 18 06/13/22 23:03 Blood Pressure 115/69 06/13/22 23:03 Pulse Oximetry 99 06/13/22 22:40 Oxygen Delivery Method 06/13/22 22:40 MDM - Chest Pain MDM Narrative Medical decision making narrative: During the evaluation of this patient I considered multiple differential diagnosis is. The life-threatening differential diagnosis include coronary disease/DC, pulmonary embolism, pneumothorax, pneumonia, and aortic dissection. Other differential diagnosis included but were not limited to pericarditis, myocarditis, chest wall pain, GERD, esophageal rupture, rib fracture contusion, pleurisy, as well as other etiologies. Medical Records Data Attestation: I reviewed the patient's medical records. Lab Data Attestation: I reviewed the patient's lab results. Labs: Lab Results 06/13/22 06/13/22 06/13/22 Range/Units 20:24 20:24 20:24 WBC 10.07 (4.50-11.00) K/uL RBC 4.91 (4.30-5.90) m/uL Hgb 15.1 (13.5-17.5) gm/dL Hct 43.6 (37.0-53.0) % MCV 89 (80-100) fL MCH 31 (26-34) pg MCHC 35 (32-36) gm/dL RDW Coeff of Sven 11.9 (11.5-15.5) % Plt Count 234 (140-440) K/uL Neut % (Auto) 72.4 H (42.0-72.0) % Lymph % (Auto) 18.3 L (20-44) % [place] % (Auto) 7.0 (0.0-11.0) % Eos % (Auto) 1.9 (0.0-7.0) % Baso % (Auto) 0.3 (0.0-3.0) % Neut # (Auto) 7.30 H (1.7-7.0) K/uL Lymph # (Auto) 1.80 (0.90-2.90) K/uL [place] # (Auto) 0.70 (0.00-0.90) K/UL Eos # (Auto) 0.19 (0.00-0.50) K/uL Baso # (Auto) 0.03 (0.00-0.30) K/uL D-Dimer Quant (PE/DVT) < 0.27 (0.00-0.50) ug/ml Sodium (135-149) mmol/L Potassium (3.6-5.1) mmol/L Chloride (96-114) mmol/L Carbon Dioxide (20-32) mmol/L BUN (5-24) mg/dL Creatinine (0.5-1.5) mg/dL Estimated Creat Clear Estimated GFR ml/min Glucose (60-115) mg/dL Calcium (8.4-10.6) mg/dL Troponin I (0.01-0.04) ng/mL POC Troponin I 0.05 H (0.01-0.04) ng/ml 06/13/22 06/13/22 Range/Units 20:24 21:39 WBC (4.50-11.00) K/uL RBC (4.30-5.90) m/uL Hgb (13.5-17.5) gm/dL Hct (37.0-53.0) % MCV (80-100) fL MCH (26-34) pg MCHC (32-36) gm/dL RDW Coeff of Sven (11.5-15.5) % Plt Count (140-440) K/uL Neut % (Auto) (42.0-72.0) % Lymph % (Auto) (20-44) % [place] % (Auto) (0.0-11.0) % Eos % (Auto) (0.0-7.0) % Baso % (Auto) (0.0-3.0) % Neut # (Auto) (1.7-7.0) K/uL Lymph # (Auto) (0.90-2.90) K/uL [place] # (Auto) (0.00-0.90) K/UL Eos # (Auto) (0.00-0.50) K/uL Baso # (Auto) (0.00-0.30) K/uL D-Dimer Quant (PE/DVT) (0.00-0.50) ug/ml Sodium 139 (135-149) mmol/L Potassium 3.7 (3.6-5.1) mmol/L Chloride 104 (96-114) mmol/L Carbon Dioxide 27 (20-32) mmol/L BUN 12 (5-24) mg/dL Creatinine 0.7 (0.5-1.5) mg/dL Estimated Creat Clear 138.60 Estimated GFR 127 ml/min Glucose 78 (60-115) mg/dL Calcium 9.2 (8.4-10.6) mg/dL Troponin I < 0.01 L < 0.01 L (0.01-0.04) ng/mL POC Troponin I (0.01-0.04) ng/ml ECG Data Attestation: I personally reviewed and interpreted this ECG as follows: ECG interpretation date: 06/13/22 Prior ECG tracings: available for review Interpretation: Normal sinus rhythm, no acute ST wave changes, normal EKG. Discharge Plan Discharge Clinical Impression: Anxiety, Chest wall pain, History of supraventricular tachycardia Patient Disposition: Home, Self-Care Condition: Stable Instructions: Chest Pain (ED), Anxiety (ED) Additional Instructions: Home rest follow-up with her provider, no evidence of any cardiac issues, lung issues, or other issues on examination. This may be GI in nature, or chest wall pain, or manifestation of your anxiety. Return as needed Prescriptions: No Action diltiazem HCl 120 mg capsule,extended release 12 hr 120 mg PO BID Qty: 180 1RF metoprolol tartrate 25 mg tablet 25 mg PO QDAY sertraline 100 mg tablet 200 mg PO DAILY lorazepam 0.5 mg tablet 1 mg PO Q4H PRN (Reason: benzo withdrawal) gabapentin 600 mg tablet 600 mg PO BID Qty: 60 5RF gabapentin 300 mg capsule 300 mg PO BID Qty: 60 5RF gabapentin 300 mg capsule 300 - 900 mg PO BID Qty: 180 1RF Follow Up/Referrals: Tomi Crystal MD [Primary Care Provider] - Stand Alone Forms: [employer] Info Instructions
== END 2022-06-13 23:04 | disposition home or self-care (01) ==
PROVIDERS: Emergency Provider Family Medicine; PCP Family Medicine
DX: R07.89 Other chest pain (principal); F41.9 Anxiety disorder, unspecified
CPT/HCPCS: 36415; 80048; 84484; 85025; 85379; 93005; 99283; 99284; A9270

== ENCOUNTER 2022-09-12 09:30 | Outpatient (CLI) | payer BC, SELFPAY | END 2022-09-12 09:31 | disposition home or self-care (01) | LOC: NFLDREF 15:21 | PROVIDERS: PCP Family Medicine; Referring Provider Family Medicine; Visit Provider Family Medicine | DX: F41.9 Anxiety disorder, unspecified (principal); J02.9 Acute pharyngitis, unspecified; I47.1 Supraventricular tachycardia; F32.A Depression, unspecified | CPT/HCPCS: 87651 ==

== ENCOUNTER 2023-03-30 15:49 | Emergency (ER) | payer BC, SELFPAY ==
[2023-03-30 15:59] VITALS: BP 139/88; PULSE 95; RESP 18; TEMP 36.9; O2SAT 98; BMI 23.7
--- NOTE | 2023-03-30 16:13 | ED_ITS ---
HPI - Wound/Laceration General Date Seen: 03/30/23 Chief Complaint: Laceration/Wound Stated Complaint: Laceration Left hand Time Seen by Provider: 03/30/23 15:58 Source: patient Mode of arrival: ambulatory Limitations: no limitations History of Present Illness HPI narrative: Patient is a 32-year-old male presenting to emergency department for laceration to his left index finger. He states he was at work when he was using a plane eyes since typically him at the base of the left index finger. Laceration is on the palmar aspect. Denies any other injuries. Has full motion of his finger at this time. Denies any associated numbness. His last tetanus shot was in 2019. No other concerns at this time. Related Data Home Medications Medication Instructions Recorded Confirmed gabapentin 300 mg capsule 900 mg PO BID 09/12/22 Previous Rx's Medication Instructions Recorded diltiazem HCl 120 mg 120 mg PO BID #180 caps 12/07/21 capsule,extended release 12 hr gabapentin 300 mg capsule 300 mg PO BID #180 caps 09/12/22 gabapentin 600 mg tablet 600 mg PO BID #180 tabs 09/12/22 metoprolol tartrate 25 mg tablet 25 mg PO BID #200 tabs 09/12/22 sertraline 100 mg tablet 200 mg (2 x 100 mg) PO DAILY #180 09/12/22 tabs Allergies Allergy/AdvReac Type Severity Reaction Status Date / Time rosalva Allergy Severe Throat Verified 09/12/22 09:25 closes up pineapple Allergy Intermediate lips swell Verified 09/12/22 09:25 ascorbic acid Allergy Mild cold sores Verified 09/12/22 09:25 inositol Allergy Mild Cold sores Verified 09/12/22 09:25 lemon oil Allergy Mild Cold sores Verified 09/12/22 09:25 niacinamide Allergy Mild Cold sores Verified 09/12/22 09:25 pantothenic acid Allergy Mild Cold sores Verified 09/12/22 09:25 pyridoxine Allergy Mild Cold sores Verified 09/12/22 09:25 riboflavin (vitamin B2) Allergy Mild Cold sores Verified 09/12/22 09:25 thiamine (vitamin B1) Allergy Mild Cold sores Verified 09/12/22 09:25 cephalexin Allergy Unknown Nausea and Verified 09/12/22 09:25 vomiting Bioflavonoids / grape seed Allergy Mild Cold sores Uncoded 09/12/22 09:25 extract Choline Allergy Mild cold sores Uncoded 09/12/22 09:25 Lemon Flavor Allergy Mild Cold sores Uncoded 09/12/22 09:25 Vitamin B12 Allergy Mild Cold sores Uncoded 09/12/22 09:25 Review of Systems Narrative: Negative unless stated in the HPI [facility] Medical History Tobacco use (07/23/12) ?Z72.0 - Tobacco use (ICD-10) Supraventricular tachycardia ?I47.1 - Supraventricular tachycardia (ICD-10) Palpitations ?R00.2 - Palpitations (ICD-10) Insomnia ?G47.00 - Insomnia, unspecified (ICD-10) History of suicidal ideation (09/08/12) ?Z86.59 - Personal history of other mental and behavioral disorders (ICD-10) History of bipolar disorder (09/08/12) ?Z86.59 - Personal history of other mental and behavioral disorders (ICD-10) Gastroesophageal reflux disease ?K21.9 - Gastro-esophageal reflux disease without esophagitis (ICD-10) Depression (07/23/12) ?F32.A - Depression, unspecified (ICD-10) Benzodiazepine abuse ?F13.10 - Sedative, hypnotic or anxiolytic abuse, uncomplicated (ICD-10) Attention deficit disorder (07/23/12) ?F98.8 - Other specified behavioral and emotional disorders with onset usually occurring in childhood and adolescence (ICD-10) Anxiety disorder (07/23/12) ?F41.9 - Anxiety disorder, unspecified (ICD-10) Surgical History History of radiofrequency ablation (RFA) procedure for cardiac arrhythmia (05/26/19) ?Z98.890 - Other specified postprocedural states (ICD-10) Family History Mother Apfav-Ehgjdsikg-Fxpqx (WPW) syndrome Social History Narrative: current chewing tobacco use Smoking Status: Never smoker Do you use any of these nicotine containing products: Smokeless Tobacco Second hand tobacco smoke exposure: No How often do you have a drink containing alcohol: never How often do you have six or more drinks on one occasion: Never AUDIT-C Alcohol total score: 0 Non-prescribed substance use: denies use Little interest or pleasure in doing things: not at all Feeling down, depressed, or hopeless: not at all service: No Exam Narrative: Exam Narrative: Const: Well-nourished, Well-developed, in mild distress Eyes: PERRL, no conjunctival injection, and symmetrical lids HENT: Atraumatic external nose and ears. Moist mucous membranes. MSK:Extremities w/o deformity, Normal Active ROM Skin: Warm, Dry. 1 cm laceration at the base of the palm aspect left index finger that does go over the MCP Neuro: Normal Muscle tone, No focal neurological deficits. Psych: Awake, Alert, & Oriented x3. Appropriate mood and affect. Const: Vital Signs, click to edit/add: Vital Signs - 24 hr 03/30/23 15:59 Temperature 98.4 F Pulse Rate [Right Pulse Oximeter] 95 Respiratory Rate 18 Blood Pressure [Ri ght Upper Arm] 139/88 Pulse Oximetry 98 Oxygen Delivery Me thod Room Air Course Vital Signs Vital signs: Initial Vital Signs Temperature 98.4 F 03/30/23 15:59 Temperature Source Temporal Artery Scan 03/30/23 15:59 Pulse Rate 95 03/30/23 15:59 Respiratory Rate 18 03/30/23 15:59 Blood Pressure 139/88 03/30/23 15:59 Blood Pressure Mean 105 03/30/23 15:59 Blood Pressure Position Sitting 03/30/23 15:59 Pulse Oximetry 98 03/30/23 15:59 Oxygen Delivery Method Room Air 03/30/23 15:59 Vital Signs Temperature 98.4 F 03/30/23 15:59 Pulse Rate 95 03/30/23 15:59 Respiratory Rate 18 03/30/23 15:59 Blood Pressure 139/88 03/30/23 15:59 Pulse Oximetry 98 03/30/23 15:59 Oxygen Delivery Method Room Air 03/30/23 15:59 Temperature 98.4 F 03/30/23 15:59 Pulse Rate 95 03/30/23 15:59 Respiratory Rate 18 03/30/23 15:59 Blood Pressure 139/88 03/30/23 15:59 Pulse Oximetry 98 03/30/23 15:59 Oxygen Delivery Method Room Air 03/30/23 15:59 MDM - Wound/Laceration MDM Narrative Medical decision making narrative: Patient is a 32-year-old male presenting emergency department for laceration of his left index finger. Lacerations on the palmar aspect over the MCP. Does not involve any deep structures. Of the with further evaluated and have no concern for foreign body or fracture. I do not believe is necessary to get imaging at this time. See laceration repair note. He is doing well. Considering he hurt himself at work in an unclean situation I will start him on Keflex prophylactically due to the concern for hand infection. Patient was given strict return precautions for signs of infection. Patient be discharged home. He is agreeable to this plan. Discharge Plan Discharge Clinical Impression: Laceration of finger Patient Disposition: Home, Self-Care Condition: Stable Instructions: Laceration (DC) Additional Instructions: Take the antibiotics as directed. Return to the emergency department for any sign of infection. This includes swelling of the entire finger, redness streaks up forearm, pain with extension of the finger, pain with palpation of the finger. If it any time you think it is having worsening infection return to the emergency department immediately. Follow-up with your primary care provider in the next 7 days to have the 3 sutures removed. For next 6 months, once sutures are removed, whenever you goes outside put a tab of sunscreen over the laceration site to improve scar appearance. Topical antibiotics are not necessary at this time. Patient can shower but do not submerge the laceration until sutures are removed Prescriptions: No Action diltiazem HCl 120 mg capsule,extended release 12 hr 120 mg PO BID Qty: 180 1RF gabapentin 300 mg capsule 900 mg PO BID gabapentin 600 mg tablet 600 mg PO BID Qty: 180 1RF Rx Instructions: Total dose is 900mg twice daily. gabapentin 300 mg capsule 300 mg PO BID Qty: 180 1RF Rx Instructions: total dose 900mg twice daily metoprolol tartrate 25 mg tablet 25 mg PO BID Qty: 200 1RF Rx Instructions: OK to take extra dose up to 1x/wk for heart racing. sertraline 100 mg tablet 200 mg PO DAILY Qty: 180 1RF Follow Up/Referrals: Provider,Not a Local [Primary Care Provider] - Stand Alone Forms: [facility] Info Instructions Procedures Laceration Left index finger: Site: hand (index finger) Side (If applicable): left Size (cm): 1 Description: linear and clean Depth: simple, single layer Local Anesthetic: lidocaine 1% Amount of anesthesia used (mL): 2 Size (cm): 6-0 Number of sutures: 3 Technique: simple, interrupted
--- NOTE | 2023-03-30 17:10 | ED.NURSE ---
Bacitracin applied and pt's finger wrapped with kerlix before discharge. Pt given extra wound supplies to keep finger wrapped.
== END 2023-03-30 17:00 | disposition home or self-care (01) ==
LOC: ED 16:53
PROVIDERS: Emergency Provider Student in an Organized Health Care Education/Training Program; PCP Physician Assistant
DX: S61.211A Laceration without foreign body of left index finger without damage to nail, initial encounter (principal); W26.8XXA Contact with other sharp object(s), not elsewhere classified, initial encounter
CPT/HCPCS: 12001; 99283

== ENCOUNTER 2023-09-15 11:15 | Emergency (ER) | payer BC, SELFPAY ==
[2023-09-15 11:26] VITALS: BP 135/87; PULSE 96; RESP 16; TEMP 37.2; O2SAT 99; BMI 26.0
--- NOTE | 2023-09-15 11:29 | ED_ITS ---
HPI - General Adult General Time Seen by Provider: 11:29 Date Seen: 09/15/23 Chief complaint: Weakness Stated complaint: body aches,cough,fever headache, Time Seen by Provider: 09/15/23 11:29 History of Present Illness HPI narrative: Luisito is a very pleasant 33-year-old male with multiple allergies common recent exposure to influenza B who comes to the emergency room for evaluation regarding sore throat and fever. Patient states that the onset of fever body aches and sore throat started yesterday. He has not been able to take his temperature but feels that it may has been as high as 103. He has not had any ear pain and he denies a cough or nasal congestion. He has no diarrhea or vomiting. He is requesting ibuprofen during his visit here. Patient has had COVID in the past and feels that this strongly is suggestive of a COVID infection. He has used Paxlovid in the past. Denies difficulty breathing, vomiting, diarrhea. He has been able to eat. Presents with a significant other. He is currently living in [facility] and visiting his children here. Related Data Home Medications Medication Instructions Recorded Confirmed gabapentin 300 mg capsule 900 mg PO BID 09/12/22 Previous Rx's Medication Instructions Recorded diltiazem HCl 120 mg 120 mg PO BID #180 caps 12/07/21 capsule,extended release 12 hr gabapentin 300 mg capsule 300 mg PO BID #180 caps 09/12/22 gabapentin 600 mg tablet 600 mg PO BID #180 tabs 09/12/22 metoprolol tartrate 25 mg tablet 25 mg PO BID #200 tabs 09/12/22 sertraline 100 mg tablet 200 mg (2 x 100 mg) PO DAILY #180 09/12/22 tabs amoxicillin 500 mg capsule 500 mg PO BID #14 caps 09/15/23 Allergies Allergy/AdvReac Type Severity Reaction Status Date / Time rosalva Allergy Severe Throat Verified 09/15/23 11:29 closes up pineapple Allergy Intermediate lips swell Verified 09/15/23 11:29 ascorbic acid Allergy Mild cold sores Verified 09/15/23 11:29 inositol Allergy Mild Cold sores Verified 09/15/23 11:29 lemon oil Allergy Mild Cold sores Verified 09/15/23 11:29 niacinamide Allergy Mild Cold sores Verified 09/15/23 11:29 pantothenic acid Allergy Mild Cold sores Verified 09/15/23 11:29 pyridoxine Allergy Mild Cold sores Verified 09/15/23 11:29 riboflavin (vitamin B2) Allergy Mild Cold sores Verified 09/15/23 11:29 thiamine (vitamin B1) Allergy Mild Cold sores Verified 09/15/23 11:29 cephalexin Allergy Unknown Nausea and Verified 09/15/23 11:29 vomiting Bioflavonoids / grape seed Allergy Mild Cold sores Uncoded 09/12/22 09:25 extract Choline Allergy Mild cold sores Uncoded 09/12/22 09:25 Lemon Flavor Allergy Mild Cold sores Uncoded 09/12/22 09:25 Vitamin B12 Allergy Mild Cold sores Uncoded 09/12/22 09:25 Review of Systems Status of ROS: Reports: 10 or more systems reviewed and unremarkable except as noted in History and below Const: Reports: fever, chills and fatigue Eyes: Denies: change in vision ENMT: Reports: throat pain and difficulty swallowing; Denies: neck pain or nasal congestion Cardio: Denies: chest pain or shortness of breath with exertion Resp: Denies: shortness of breath or cough GI: Reports: difficulty swallowing; Denies: abdominal pain, nausea, vomiting or diarrhea : Denies: painful urination Musculo: Reports: other (Body aches throughout); Denies: neck pain Integ/Breast: Denies: rash Endo: Reports: fatigue PFSH PFSH Medical History Tobacco use (07/23/12) ?Z72.0 - Tobacco use (ICD-10) Supraventricular tachycardia ?I47.1 - Supraventricular tachycardia (ICD-10) Palpitations ?R00.2 - Palpitations (ICD-10) Insomnia ?G47.00 - Insomnia, unspecified (ICD-10) History of suicidal ideation (09/08/12) ?Z86.59 - Personal history of other mental and behavioral disorders (ICD-10) History of bipolar disorder (09/08/12) ?Z86.59 - Personal history of other mental and behavioral disorders (ICD-10) Gastroesophageal reflux disease ?K21.9 - Gastro-esophageal reflux disease without esophagitis (ICD-10) Depression (07/23/12) ?F32.A - Depression, unspecified (ICD-10) Benzodiazepine abuse ?F13.10 - Sedative, hypnotic or anxiolytic abuse, uncomplicated (ICD-10) Attention deficit disorder (07/23/12) ?F98.8 - Other specified behavioral and emotional disorders with onset usually occurring in childhood and adolescence (ICD-10) Anxiety disorder (07/23/12) ?F41.9 - Anxiety disorder, unspecified (ICD-10) Surgical History History of radiofrequency ablation (RFA) procedure for cardiac arrhythmia (05/26/19) ?Z98.890 - Other specified postprocedural states (ICD-10) Family History Mother Ioovn-Wclyczkje-Ymkcw (WPW) syndrome Social History Narrative: current chewing tobacco use Smoking Status: Never smoker Do you use any of these nicotine containing products: Smokeless Tobacco Second hand tobacco smoke exposure: No How often do you have a drink containing alcohol: never How often do you have six or more drinks on one occasion: Never AUDIT-C Alcohol total score: 0 Non-prescribed substance use: denies use Little interest or pleasure in doing things: not at all Feeling down, depressed, or hopeless: not at all service: No Exam Narrative: Exam Narrative: Alert and oriented. No acute distress. Eyes are clear. TMs bilaterally without erythema. Left TM is slightly retracted. Still maintains light reflex. Oral cavity with with erythema in the posterior oropharynx and generous tonsils. No evidence of airway compromise. There is no exudate. Breath is not a fall odor. Very mild anterior cervical lymphadenopathy. Neck is otherwise supple and has full range of motion. Lungs are clear to auscultation. Heart with a regular rate and rhythm. Abdomen soft nontender. Moving all extremities. Const: Vital Signs, click to edit/add: Vital Signs - 24 hr 09/15/23 11:26 Temperature 99.0 F Pulse Rate [Right Pulse Oximeter] 96 Respiratory Rate 16 Blood Pressure [Ri ght Upper Arm] 135/87 Pulse Oximetry 99 Oxygen Delivery Me thod Room Air Documenting provider has reviewed patient's vital signs: yes Course Course ED Course: Nursing staff did test Luisito for COVID/influenza/RSV and this has been negative. Differential diagnosis does include but is not limited to strep, COVID or influenza not detected today, other viral illness, peritonsillar abscess. No evidence of airway compromise or asymmetry on the exam however. At this time I recommend testing for strep. Luisito and his significant other have been waiting here for extended period for results of COVID test. I will let them depart if positive for strep will call a prescription in to the [facility] in [facility]. If negative will also discuss results with patient. Prior to departure we also talked about need for pushing fluids, alternating ibuprofen and Tylenol. They are in agreement. Vital Signs Vital signs: Initial Vital Signs Temperature 99.0 F 09/15/23 11:26 Temperature Source Temporal Artery Scan 09/15/23 11:26 Pulse Rate 96 09/15/23 11:26 Pulse Rhythm Regular 09/15/23 11:26 Pulse Strength 3+ Normal 09/15/23 11:26 Respiratory Rate 16 09/15/23 11:26 Blood Pressure 135/87 09/15/23 11:26 Blood Pressure Mean 103 09/15/23 11:26 Blood Pressure Position Sitting 09/15/23 11:26 Pulse Oximetry 99 09/15/23 11:26 Oxygen Delivery Method Room Air 09/15/23 11:26 Vital Signs Temperature 99.0 F 09/15/23 11:26 Pulse Rate 96 09/15/23 11:26 Respiratory Rate 16 09/15/23 11:26 Blood Pressure 135/87 09/15/23 11:26 Pulse Oximetry 99 09/15/23 11:26 Oxygen Delivery Method Room Air 09/15/23 11:26 Temperature 99.0 F 09/15/23 11:26 Pulse Rate 96 09/15/23 11:26 Respiratory Rate 16 09/15/23 11:26 Blood Pressure 135/87 09/15/23 11:26 Pulse Oximetry 99 09/15/23 11:26 Oxygen Delivery Method Room Air 09/15/23 11:26 Medications Administered Medications: Discontinued Medications Generic Name Dose Route Start Last Admin Trade Name Freq PRN Reason Stop Dose Admin Ibuprofen 600 mg 09/15/23 12:23 09/15/23 12:29 Ibuprofen 200 Mg Tablet PO 09/15/23 12:24 600 mg ONCE ONE Administration Medical Decision Making MDM Narrative Medical decision making narrative: 1. Strep pharyngitis-patient tested negative for COVID/influenza/RSV and has been exposed influenza B. given positive strep test I feel this is most likely etiology of patient's illness, body aches and fever. Will treat with amoxicillin 500 mg p.o. b.i.d. x7 days. Suggest pushing fluids rest. Did state that if he did test positive for strep you would be continued to be compared to age is approximately 24 hours but start feeling better after about 12-18 hours. 2. Disposition-home at this time. Seek medical attention for worsening symptoms. Medical Records Medical records reviewed: Yes I reviewed the patient's medical records Lab Data Lab results reviewed: Yes I reviewed the patient's lab results Labs: Lab Results 09/15/23 09/15/23 Range/Units 11:25 13:00 SARS-CoV-2 (PCR) Negative SARS-CoV-2 (Negative) Influenza Type A (PCR) Negative PCR FLU A (Negative) Influenza Type B (PCR) Negative PCR FLU B (Negative) RSV (PCR) Negative PCR RSV (Negative) Group A Strep DNA DETECTED A (Not Detectd) Discharge Plan Discharge Clinical Impression: Pharyngitis Qualifiers: Pharyngitis/tonsillitis etiology: unspecified etiology Qualified Code(s): J02.9 - Acute pharyngitis, unspecified Patient Disposition: Home, Self-Care Condition: Improved Additional Instructions: Await phone call regarding results of strep test. If this test is positive I will call in amoxicillin to your pharmacy in [facility]. Thank you for providing address for this. If negative, I would recheck COVID home test tomorrow. You have 5 days from onset of symptoms to start on Paxlovid. Otherwise ibuprofen or Tylenol may be alternated every 4 hours as needed. Push fluids. Seek medical attention for worsening symptoms. Prescriptions: New amoxicillin 500 mg capsule 500 mg PO BID Qty: 14 0RF No Action diltiazem HCl 120 mg capsule,extended release 12 hr 120 mg PO BID Qty: 180 1RF gabapentin 300 mg capsule 900 mg PO BID gabapentin 600 mg tablet 600 mg PO BID Qty: 180 1RF Rx Instructions: Total dose is 900mg twice daily. gabapentin 300 mg capsule 300 mg PO BID Qty: 180 1RF Rx Instructions: total dose 900mg twice daily metoprolol tartrate 25 mg tablet 25 mg PO BID Qty: 200 1RF Rx Instructions: OK to take extra dose up to 1x/wk for heart racing. sertraline 100 mg tablet 200 mg PO DAILY Qty: 180 1RF Follow Up/Referrals: Yee Cortez PA-C [Primary Care Provider] - Stand Alone Forms: [employer] Info Instructions Discharge Comment: RX has been entered and sent to [facility] pharmacy in [place]
[2023-09-15] MEDS: IBUPROFEN 200 MG TABLET 600 MG PO (12:29)
--- OUTSIDE RECORDS SUMMARY | 2023-09-15 12:43 | XMS_ITS | Clinical Summary ---
Author Name Unknown Organization [facility] Address [address] [place] [address] Care Team Providers Care Ornamental Metal Worker Helper Name Role Phone No Ref-Primary, Physician Primary Care Provider Allergies Active Allergy Reactions Criticality Noted Date Comments Cephalexin Nausea and Vomiting 03/19/2021 Kiwi Anaphylaxis High 03/19/2021 Pineapple Anaphylaxis High 03/19/2021 Medications Medication Sig Dispensed Refills Start Date End Date Status CORLANOR 5 MG tablet Take 5 mg by mouth 2 times daily (with meals) 0 03/11/2021 Active EPINEPHrine (ANY BX GENERIC EQUIV) 0.3 MG/0.3ML injection 2-pack Inject into the muscle once as needed 0 03/08/2021 Active metoprolol tartrate (LOPRESSOR) 25 MG tablet Take 25 mg by mouth 2 times daily 0 03/10/2021 Active magnesium chloride 535 (64 Mg) MG TBEC CR tablet Take 535 mg by mouth daily 0 Active Multiple Vitamins-Minerals (HALINA MULTIVITAMIN FOR MEN) TABS Take 1 tablet by mouth daily 0 03/08/2021 Active sertraline (ZOLOFT) 100 MG tablet Take 100 mg by mouth daily 0 03/01/2021 Active gabapentin (NEURONTIN) 600 MG tablet Take 1 tablet by mouth 3 times daily 0 03/14/2021 Active PHENobarbital (LUMINAL) 32.4 MG tabletIndications:Alco hol Withdrawal Syndrome Taper as directed 0 Active Social History Tobacco Use Types Packs/Day Years Used Date Smoking Tobacco: Never Assessed Adolescent Education Answer Date Record ed Getting School Help Needed Not on file 03/11 Sex and Gender Information Value Date Recorded Sex Assigned at Not on file Gender Identity Not on file Sexual Orientation Not on file Last Filed Vital Signs [...] 09/11/2006 HEPATITIS C SCREENING 09/11/2009 COVID-19 Vaccine ( season) 2023 11/15/2020, 10/25/2020 INFLUENZA VACCINE (#1) 2023 7, 06/11/2013, 06/11/2013, Additional history exists PHQ-2 (once per calendar year) 2023 DTAP/TDAP/TD IMMUNIZATION (8 - Td or Tdap) 07/18/2028 07/18/2018, 06/11/2013, 02/13/2005, Additional history exists HEPATITIS B IMMUNIZATION Completed 997, 08/02/1994, 06/01/1994 IPV IMMUNIZATION Completed 01/27/1997, , 08/02/1994, Additional history exists MENINGITIS IMMUNIZATION Aged Out 12/24/2006 No l onger eligible based on patient's age to complete this topic HPV IMMUNIZATION Completed 07/03/2010, , 02/15/2010, Additional history exists Pneumococcal Vaccine: Pediatrics (0 to 5 Years) and At-Risk Patients (6 to 64 Years) Aged Out No longer eligible based on patient's age to complete this topic RSV MONOCLONAL ANTIBODY Aged Out No l onger eligible based on patient's age to complete this topic Care Teams Ornamental Metal Worker Helper Relationship Specialty Start Date End Date No Ref-Primary, Physician PCP - General 03/15/21
--- OUTSIDE RECORDS SUMMARY | 2023-09-15 12:43 | XMS_ITS | Clinical Summary ---
Author Name Unknown Organization [facility] Address [place], [place] [address] Care Team Providers Care Edge Plugger Name Role Phone Yee Cortez Primary Care Provider [phone] Allergies Active Allergy Reactions Criticality Noted Date Comments Farheen Anaphylaxis High 02/17/2013 Medications Medication Sig Dispensed Refills Start Date End Date Status melatonin 3 mg tablet Take 1 Tablet (3 mg) by mouth once daily. 0 3 Active metoprolol tartrate (LOPRESSOR) 25 mg tabletIndications:S VT (supraventricular tachycardia) (HC) Take 1 Tablet (25 mg) by mouth two times daily. Can take an extra 25 mg dose during day if symptomatic-tachyc ardia. 270 Tablet 3 3 Active Additional Information Patient taking differently: 50 mgOral BID, Can take an extra 25 mg dose during day if symptomatic-tachycardia., Reported on 08/15/2023 medication order composerIndications :SVT (supraventricular tachycardia) (HC) Daily magnesium supplement 90 Tablet 3 3 Active EPINEPHrine (EPIPEN) 0.3 mg/0.3 mL auto-injectorIndica tions:Food allergy,History of anaphylaxis Inject 0.3 mg (1 pen.) intramuscular each time if needed for Allergic Reaction. 2 Each 3 3 Active ondansetron (ZOFRAN ODT) 4 mg disintegrating tabletIndications:N ausea and vomiting, unspecified vomiting type,Motion sickness, subsequent encounter Place 1 Tablet (4 mg) on the tongue every 8 hours if needed for Nausea/Vomiting. 15 Tablet 2 3 Active dilTIAZem CD (CARDIZEM CD) 120 mg extended release 24 hr capsuleIndications: SVT (supraventricular tachycardia) (HC) Take 1 Capsule (120 mg) by mouth two times daily. 180 Capsule 4 Active Additional Information Patient taking differently: 240 mgOralONCE DAILY BEFORE A MEAL, Reported on 08/15/2023 busPIRone (BUSPAR) 10 mg tabletIndications:G AD (generalized anxiety disorder) Take 1-2 Tablets (10-20 mg) by mouth two times daily. 180 Tablet 1 4 Active clonazePAM (KLONOPIN) 0.5 mg tabletIndications:G AD (generalized anxiety disorder) Take 1 Tablet (0.5 mg) by mouth two times daily. 60 Tablet 2 4 Active escitalopram oxalate (LEXAPRO) 20 mg tabletIndications:G AD (generalized anxiety disorder) Take 1 Tablet (20 mg) by mouth every morning. 90 Tablet 3 4 Active escitalopram oxalate (LEXAPRO) 10 mg tabletIndications:G AD (generalized anxiety disorder) Take 1/2 tablet once daily for 1 week, then increase to 1 tablet once daily. 90 Tablet 4 09/13/19 24 Discontinu ed(*Medica tion adjustment ) clonazePAM (KLONOPIN) 0.5 mg tabletIndications:G AD (generalized anxiety disorder) Take 1 Tablet (0.5 mg) by mouth 2 times daily if needed for Anxiety. 20 Tablet 4 08/22/19 24 Discontinu ed(Reorder (E-cancel not sent)) Active Problems Problem Noted Date Diagnosed Date Hypertriglyceridemia 11/15/2022 History of anaphylaxis 11/15/2022 DRAGAN (generalized anxiety disorder) 11/15/2022 SVT (supraventricular tachycardia) 05/27/2019 Controlled substance agreement signed 11/15/2016 Overview: Signed 11/13/2016 Dr Magui Infante Psychiatry Anxiety 10/10/2016 Psychophysiological insomnia 10/10/2016 Panic disorder without agoraphobia 09/03/2012 Attention deficit disorder with hyperactivity(31 4.01) 11/16/2008 Depressive disorder, not elsewhere classified Conduct disorder, adolescent onset type 08/19/19 09 Encounters Date Type Department Care Team Description 08/27/2023 Refill [facility] [address] Yee Cortez PA Refill Request (Lorazepam) 08/22/[address] [address] Yee Cortez PA Refill Request (Clonazepam) 08/15/2023 3:30 PM BUSINESS SYSTEMS ADVISOR Telemedicine [address] [address] Yee Cortez PA Medication Management (Discuss med for anxiety); Telehealth (No vitals taken) 08/15/2023 Travel 08/08/2023 10:30 AM BUSINESS SYSTEMS ADVISOR Office Visit [address] [address] Yee Cortez PA Anxiety (Also wearing a hear monitor and wants to discuss-also has to mold puller twice on his way here as he was having panic attack) 08/08/2023 Travel 08/05/[address] [address] Yee Cortez PA Appointment 07/01/[address] [address] Yee Cortez PA Appointment Request 06/30/2023 2:05 AM BUSINESS SYSTEMS ADVISOR E-Visit [address] [address] Yee Cortez PA eVisit for Heartburn from Last 3 Months Immunizations Name Administration Dates Next Due DTP 01/27/1997, 5,09/01/1993,12/16,02/24/1992,1991 Hepatitis A (Peds) 12/24/2006 Hepatitis B (Peds) 01/27/1997,08/02/1994, 994 Hib Conjugate, Unspecified 08/02/1994,,02/24/1992,12/20 Human Papilloma Virus Vaccine 07/03/2010, 010,11/29/2009 Influenza A (H1N1), Inactiva leeann (Age >=3 Years) 04/11/2009 Influenza, IIV3 (Age >=3 years) 04/14/2009,04/01 Influenza, IIV4 02/13/2017 MMR 01/27/1997,12/16/1992 Meningococcal Vaccine (Menactra) 12/24/2006 Polio Virus, Unspecified 01/27/1997,07/12,09/01/1993,02/23,1991 Td (Age >=7 Years) 02/13/2005 Tdap 07/18/2018,06/11/2013 Varicella Vaccine 06/11/2002 Family History Medical History Relation Name Comments Depression Father Other Father pituitary tumor Alcohol/Drug Mother Izzy's thyroiditis Mother Psychiatric illness Mother Patrica , mom was adopted Day Parkinson White syndrome Mother Relation Name Status Comments Brother Alive Father Alive Mother Alive Sister 1 Alive Sister 2 Alive Social History Tobacco Use Types Packs/Day Years Used Date Smoking Tobacco: Former Cigarettes Q uit: 01/22/2013 Smokeless Tobacco: Current Tobacco Cessation:Ready to Q uit: Not Asked; Counseling Given: Not Answered Alcohol Use Standard Drinks/Week Comments No 0 (1 standard drink = 0.6 oz pur e alcohol) PHQ-2 Answer Date Recorded PHQ-2 TOTAL SCORE 3 2023 Social Connections Answer Date Recorded Frequency of Communication with Friends and Fami ly Not on file 06/10/2021 Financial Resource Strain Answer Date R ecorded Difficulty of Paying Living Expenses Not on file 06/10/2021 Difficulty of Paying Living Expenses Not on file 06/10/2021 Sex and Gender Information Value Date Recorded Sex Assigned at Not on file Gender Identity Not on file Sexual Orientation Not on file Obstetrics History Last Filed Vital Signs Vital Sign Reading Time Taken Comments Blood Pressure 142/83 08/08/2023 10:24 AM BUSINESS SYSTEMS ADVISOR Pulse 64 08/08/2023 10:24 AM BUSINESS SYSTEMS ADVISOR Temperature 36.8 ??C (98.3 ??F) 12/17/2021 8:14 PM CD T Respiratory Rate 18 12/17/2021 9:48 PM CDT Oxygen Saturation 100% 08/08/2023 10:24 AM BUSINESS SYSTEMS ADVISOR Inhaled Oxygen Concentration - - Weight 76.7 kg (169 lb) 08/08/2023 10:24 AM BUSINESS SYSTEMS ADVISOR Height 172.2 cm (5' 7.8) 11/13/2022 9:05 AM CDT Body Mass Index 25.85 11/13/2022 9:05 AM CDT Plan of Treatment Health Maintenance Due Date Last Done Comments COVID-19 vaccine series ( season) 2023 05/23/2021, 11/15/2020, 10/25/2020 BMI (ht and wt on same day) for age 18+ 11/14/2023 11/13/2022, 08/20/2019, 04/16/2019, Additional history exists Influenza for age 9-49 02/09/2024 7, 04/14/2009, 04/11/2009, Additional history exists Depression screening for age 12+ 09/11/2024 2023, 08/08/2023, 11/13/2022, Additional history exists Tetanus booster 07/18/2028 07/18/2018, 07/2013, 02/13/2005, Additional history exists Tdap Completed 07/18/2018, 06/11/2013 HIV for age 15-65 Completed 11/13/2022 Hepatitis C screening for age 18-79 Completed 11/13/2022 Pneumococcal series for age 6-64 Aged Out No longer eligible based on patient's age to complete this topic Procedures Procedure Name Priority Date/Time Associated Diagnosis Comments LC HIV-1/O/2, 4TH GENERATION Routine 11/13/2022 9:32 AM CDT Encounter for screening for HIV LC HCV ANTIBODY RFX TO QUANT PCR Routine 11/13/2022 9:32 AM CDT Need for hepatitis C screening test from Last 3 Months or Most Recently Relevant to Health Maintenance Results * LC HCV ANTIBODY RFX TO QUANT PCR (11/13/2022 9:32 AM CDT) HCV Ab Non Reactive Non Reactive 11/15/2022 12:[address] [facility] Blood BLOOD SPECIMEN / Unknown Venipuncture / Unknown 11/13/2022 9:32 AM CDT 11/13/2022 9:35 AM CDT Narrative [facility] ([facility]) - 11/15/2022 12:08 PM CDT Performed at: ??[address] ??[id number] Investment Associate: Bernard Forbes MD, Phone: ??[phone] [facility] Performing Organization Address City/[facility]/ZIP Co de Phone Number [facility] ([facility]) [address] [place] [address] * LC HIV-1/O/2, 4TH GENERATION (11/13/2022 9:32 AM CDT) HIV Scr 4th Gen Non Reactive Non Reactive 11/15/2022 11:09 AM CDT [facility] ([facility]) Comment: HIV Negative HIV-1/HIV-2 antibodies and HIV-1 p24 antigen were NOT detected. There is no laboratory evidence of HIV infection. Blood BLOOD SPECIMEN / Unknown Venipuncture / Unknown 11/13/2022 9:32 AM CDT 11/13/2022 9:35 AM CDT [facility] ([facility]) - 11/15/2022 11:09 AM CDT Performed at: ??[address] ??[id number] Investment Associate: Bernard Forbes MD, Phone: ??[phone] [facility] Performing Organization Address [facility]/ZIP Co de Phone Number [facility] ([facility]) [address] [place] [address] from Last 3 Months or Most Recently Relevant to Health Maintenance Advance Directives Documents on File Type Date Recorded Patient Paper Machine Back Tender Expl anation Healthcare Directive 05/26/2019 12:00 AM 05/25/19 * Full Code (Latest Code Status on File) Date Activated Date Inactivated Comments 12/13/2020 4:25 PM 12/13/2020 11:04 PM Question Answer Comments Code Status Discussion: Discussed * Full Code Date Activated Date Inactivated Comments 05/26/2019 9:20 AM 05/27/2019 1:03 PM Care Teams Edge Plugger Relationship Specialty Start Date End Date Yee Cortez PA [address] [place] [address] PCP - General Physician Presser Machine 11/15/22
--- OUTSIDE RECORDS SUMMARY | 2023-09-15 12:43 | XMS_ITS | Referral Summary ---
Author Name Unknown Organization [facility] Address [address] [place] [id number] Care Team Providers Care Ad Copy Writer Name Role Phone No Ref-Primary, Physician Primary [...] 03/15/2021 1:34 PM CDT Plan of Treatment Not on file Care Teams Ad Copy Writer Relationship Specialty Start Date End Date No Ref-Primary, Physician PCP - General 03/15/21
--- OUTSIDE RECORDS SUMMARY | 2023-09-15 12:43 | XMS_ITS | Clinical Summary ---
Author Name Unknown Organization [employer] Address [address] [place] [address] Care Team Providers Care Commanding Officer Homicide Squad Name Role Phone External, Physician Primary Care Provider Unavai lable Allergies Active Allergy Reactions Criticality Noted Date Comments Ascorbate Calcium-Bioflavonoid Other Medium 01/21/2019 Cold sores Ascorbic Acid Other,Unknown Reaction Medium 01/21/2019 Cold sores Cephalexin Nausea and / or Vomiting,Other,Unknow n Reaction Low 01/12/2021 Choline Other Low 05/25/2021 Cyanocobalamin (Vitamin B-12) Unknown Reaction Low 01/12/2021 Inositol Other,Unknown Reaction Medium 01/21/2019 Cold sores Kiwi (Actinidia Chinensis) Anaphylaxis / Throat Swelling High 06/01/2020 Lemon Flavor Other,Unknown Reaction Low 01/12/2021 Spencer Flavor Other,Unknown Reaction High 01/12/2021 Spencer [place] Multivitamin With Iron,Other Minerals Other Low 09/05/2012 COLD SORE REACTION TO VARIOUS/NUMEROUS Niacinamide Other,Unknown Reaction Medium 01/21/2019 Cold sores Pantothenic Acid Other,Unknown Reaction Medium 01/21/2019 Cold sores Pineapple Anaphylaxis / Throat Swelling High 02/17/2013 Pyridoxine Other Low 01/12/2021 Riboflavin (Vitamin B2) Other,Unknown Reaction Medium 01/21/2019 Cold sores Thiamine (Vitamin B1) Other,Unknown Reaction Medium 01/21/2019 Cold sores Medications Medication Sig Dispensed Refills Start Date End Date Status dilTIAZem HCL (CARDIZEM CD) 120 mg oral Capsule, Sust. Release 24HR Take 1 Capsule (120 mg) by mouth in the morning and 1 Capsule (120 mg) in the evening. 0 10/08/2022 Active EPINEPHrine 0.3 mg/0.3 mL injection auto-injector 1 Pen by intramuscular route once if needed. 0 11/13/2022 Active gabapentin (NEURONTIN) 600 mg oral Tablet Take 1 Tablet (600 mg) by mouth in the morning and 1 Tablet (600 mg) in the evening. 0 11/13/2022 Active LORazepam (ATIVAN) 1 mg oral Tablet Take 1 Tablet (1 mg) by mouth every 6 hours if needed. Max Daily Amount: 4 mg 0 03/25/2023 Active melatonin 3 mg oral Tablet Take 1 Tablet (3 mg) by mouth in the morning. 0 11/13/2022 Active metoprolol succinate (TOPROL XL) 25 mg oral Tablet Sustained Release 24HR Take 1 Tablet (25 mg) by mouth in the morning and 1 Tablet (25 mg) in the evening. 0 Active sertraline (ZOLOFT) 100 mg oral Tablet Take 2 Tablets (200 mg) by mouth in the morning. 0 06/13/2022 Active Social History Tobacco Use Types Packs/Day Years Used Date Smoking Tobacco: Never Assessed Sex and Gender Information Value Date Recorded Sex Assigned at Not on file Gender Identity Not on file Sexual Orientation Not on file Last Filed Vital Signs Vital Sign Reading Time Taken Comments Blood Pressure 125/78 04/15/2023 4:15 PM COUNTER CLERK TRACTOR PARTS Pulse 55 04/15/2023 4:15 PM COUNTER CLERK TRACTOR [employer]S Temperature 36.7 ??C (98 ??F) 04/15/2023 3:54 PM COUNTER CLERK TRACTOR PARTS Respiratory Rate 16 04/15/2023 3:54 PM COUNTER CLERK TRACTOR [employer]S Oxygen Saturation 98% 04/15/2023 4:15 PM COUNTER CLERK TRACTOR PARTS Inhaled Oxygen Concentration - - Weight - - Height - - Body Mass Index - - Plan of Treatment Health Maintenance Due Date Last Done Comments Hepatitis C Testing 1991 COVID-19 Vaccine (#1) 03/13/1992 PHQ-9 Depression Screening 2003 HIV Screen 09/11/2006 Hepatitis A Vaccines (2 of 2 - 2-dose series) 06/26/2007 12/24/2006 Influenza Vaccine (#1) 2023 7, 04/14/2009, 04/01/2008 DTaP/Tdap/Td Vaccines (9 - Td or Tdap) 07/18/2028 07/18/2018, 06/11/2013, 02/13/2005, Additional history exists Varicella Zoster Sequential (1 of 2) 09/11/2041 06/11/2002 HIB Vaccines Completed 08/02/1994, 08/09, 02/24/1992, Additional history exists Hepatitis B Vaccines Completed 01/27/1997, 08/02/1994, 06/01/1994 Meningococcal Vaccines Aged Out 12/24/2006 No lo nger eligible based on patient's age to complete this topic HPV Vaccines Completed 07/03/2010, 01/2010, 11/29/2009 Pneumococcal Vaccine (0-64 Years) Aged Out No longer eligible based on patient's age to complete this topic Care Teams Commanding Officer Homicide Squad Relationship Specialty Start Date End Date External, Physician PCP - General 04/15/23 Additional Source Comments PLEASE NOTE: Replies to this message will not be received.[facility] and [facility]
--- OUTSIDE RECORDS SUMMARY | 2023-09-15 12:44 | XMS_ITS | Encounter Summary ---
Author Name Unknown Organization [facility] Address [address] [place] [address] Care Team Providers Care Alteration Inspector Name Role Phone Elsewhere, Pcp Primary Care Provider Unavailabl e Reason for Referral * Outpatient (Routine) - Closed Specialty Diagnoses / Procedures Referred By Obed castañeda Referred To Contact Diagnoses Supraventricular Tachycardia, Unspecified (HCC) Procedures ECG Ambulatory Real Time Cardiac Monitoring Rodrigo Gray M.D., Ph.D. [address] [place] [phone] [facility] Referral ID Status Reason Start Date Expiration Date Visits Re quested Visits Authorized [id number] Closed 07/03/2023 07/02/2024 1 1 TICS FABRICATOR OR WELDER Reason for Visit * Outpatient (Routine) - Closed Specialty Diagnoses / Procedures Referred By Obed castañeda Referred To Contact Diagnoses Supraventricular Tachycardia, Unspecified (HCC) Procedures ECG Ambulatory Real Time Cardiac Monitoring Rodrigo Gray M.D., Ph.D. [address] [place] [phone] [facility] Referral ID Status Reason Start Date Expiration Date Visits Re quested Visits Authorized [id number] Closed 07/03/2023 07/02/2024 1 1 Encounter Details Date Type Department Care Team (Late st Contact Info) Description 07/03/2023 1:30 PM PLASTICS FABRICATOR OR WELDER - 07/03/2023 11:59 PM PLASTICS FABRICATOR OR WELDER Hospital Encounter Division of Cardiovascular Diseases in [place], [place] [address] [place] [address] Rodrigo Gray M.D., Ph.D. [address] [place] [address] Supraventricular Tachycardia, Unspecified (HCC) Discharge Disposition: Home or Self Care Social History Tobacco Use Types Packs/Day Years Used Date Smoking Tobacco: Every Day Cigarettes 0.5 16 Smokeless Tobacco: Current Chew Alcohol Use Standard Drinks/Week Comments Not Currently 0 (1 standard drink = 0.6 oz pur e alcohol) No alcohol in over 2 years Humiliation, Afraid, Rape, and Kick questionnair e Answer Date Recorded Within the last year, have y ou been afraid of your partner or ex-partner? No 07/17/2021 Within the last year, have y ou been humiliated or emotionally abused in other ways by your partner or ex-partner? No Within the last year, have y ou been kicked, hit, slapped, or otherwise physically hurt by your partner or ex-partner? No 07/17/2021 Within the last year, have y ou been raped or forced to have any kind of sexual activity by your partner or ex-partner? No 07/17/2021 Social Connection and Isolation Panel [NHANES] A nswer Date Recorded In a typical week, how many times do you talk on the phone with family, friends, or neighbors? Once a week 07/17/2021 How often do you get together with friends or re latives? Never 07/17/2021 How often do you attend bahai or yazidism serv ices? Never 07/17/2021 Do you belong to any clubs o r organizations such as bahai groups, unions, fraternal or athletic groups, or school groups? No 07/17/2021 How often do you attend meet ings of the clubs or organizations you belong to? Never 07/17/2021 Are you , , di vorced, , never , or living with a partner? 07/17/2021 AUDIT-C Answer Date Recorded Q1: How often do you have a drink containing alc ohol? Never 07/17/2021 Average Number of Drinks Not on file 022 Frequency of Binge Drinking Not on file 12/2021 Overall Financial Resource Strain (CARDIA) Answe r Date Recorded How hard is it for you to pa y for the very basics like food, housing, medical care, and heating? Hard 07/17/2021 [facility] - Occupational Stress Questionnaire Answer Date Recorded Do you feel stress - tense, restless, nervous, or anxious, or unable to sleep at night because your mind is troubled all the time - these days? Very much 07/17/2021 Exercise Vital Sign Answer Date Recorde d On average, how many days pe r week do you engage in moderate to strenuous exercise (like a brisk walk)? 3 days 07/17/2021 On average, how many minutes do you engage in exercise at this level? 40 min 07/17/2021 Hunger Vital Sign Answer Date Recorded Within the past 12 months, y ou worried that your food would run out before you got the money to buy more. Sometimes true Within the past 12 months, t he food you bought just didn't last and you didn't have money to get more. Never true 12/2021 PRAPARE - Transportation Answer Date Re corded In the past 12 months, has l ack of transportation kept you from medical appointments or from getting medications? No 12/2021 In the past 12 months, has l ack of transportation kept you from meetings, work, or from getting things needed for daily living? No 07/17/2021 Housing Stability Vital Sign Answer Delta e Recorded In the last 12 months, was t here a time when you were not able to pay the mortgage or rent on time? No 07/17/2021 In the last 12 months, how many places have you lived? 1 07/17/2021 In the last 12 months, was t here a time when you did not have a steady place to sleep or slept in a skilled nursing (including now)? No 07/17/2021 Nutrition Answer Date Recorded Nutrition: EVOO Fat Source No 07/17 On average, how many serving s of fruits and vegetables do you eat per day (serving size is equal to 1 cup or approximately the size of a tennis ball)? 0-1 07/17/2021 Dental Answer Date Recorded Dental: Regular Dentist Yes 05/20/20 21 Employment Answer Date Recorded Employment status Employed but not working due t o illness or injury 07/17/2021 Education Answer Date Recorded What is the highest level of school you have completed or the highest degree you have received? GED or equivalent 04/2021 Sex and Gender Information Value Date Recorded Sex Assigned at Male 06/01/2020 11:57 AM PLASTICS FABRICATOR OR WELDER Gender Identity Male 06/01/2020 11:57 AM PLASTICS FABRICATOR OR WELDER Sexual Orientation Straight 05/25/2021 2: 46 PM PLASTICS FABRICATOR OR WELDER documented as of this encounter Medications at Time of Discharge Medication Sig Dispensed Refills Start Date End Date acetaminophen (TYLENOL) 500 mg tablet Take 1,000 mg by mouth every 6 (six) hours as needed for pain. 0 EPINEPHrine 0.3 mg/0.3 mL injection syringe Inject intramuscularly as needed. 0 03/08/2021 gabapentin (NEURONTIN) 300 mg capsule Take 300 mg by mouth 2 (two) times a day. 0 06/05/2021 gabapentin (NEURONTIN) 600 mg tablet Take 600 mg by mouth 2 (two) times a day. 0 06/05/2021 ibuprofen (ADVIL,MOTRIN) 800 mg tablet Take 800 mg by mouth every 6 (six) hours as needed for pain. 0 LORazepam (ATIVAN) 1 mg tablet Take 1 tablet by mouth as needed. 0 09/08/2015 melatonin 10 mg tablet Take 10 mg by mouth at bedtime. 0 03/01/2021 naproxen (NAPROSYN) 500 mg tablet Take 500 mg by mouth 2 (two) times a day with meals. 0 nirmatrelvir-riton avir (PAXLOVID) 300 mg (150 mg x 2)-100 mg dose packIndications:Co ntact With And (Suspected) Exposure To COVID-19 Take 300 mg nirmatrelvir (two 150 mg tablets) with 100 mg ritonavir (one 100 mg tablet), with all three tablets taken together twice daily for 5 days. 30 tablet 0 02/03/2023 ondansetron (ZOFRAN) 4 mg tablet Take 4 mg by mouth as needed. 0 03/03/2021 sertraline (ZOLOFT) 100 mg tablet Take 100 mg by mouth daily. 0 06/26/2021 sertraline (ZOLOFT) 100 mg tablet Take 200 mg by mouth daily. 0 06/13/2022 dilTIAZem CD (CARDIZEM CD/CARTIA XT) 120 mg 24 hr capsule TAKE 1 CAPSULE BY MOUTH 2 TIMES A DAY. 180 capsule 3 10/08/2022 08/13/2023 metoprolol tartrate (LOPRESSOR) 25 mg tablet Take 1 tablet (25 mg total) by mouth 2 (two) times a day. 180 tablet 3 10/11/2022 08/14/2023 documented as of this encounter Plan of Treatment Not on file documented as of this encounter Procedures Procedure Name Priority Date/Time Associated Diagnosis Comments ECG AMBULATORY REAL TIME CARDIAC MONITORING Routine 08/08/2023 12:00 AM PLASTICS FABRICATOR OR WELDER Supraventricular Tachycardia, Unspecified (HCC) documented in this encounter Results * ECG AMBULATORY REAL TIME CARDIAC MONITORING (08/08/2023 12:00 AM PLASTICS FABRICATOR OR WELDER) Min Heart Rate 41 bpm INFOBIONIC MOME Max Heart Rate 174 bpm INFOBIONIC MOME Mean Heart Rate 67 bpm INFOBIONIC MOME VE Total Beats <100 count INFOBIONIC MOME VE Percent Beats 0% percent INFOBIONIC MOME SVE Total Beats 3817 count INFOBIONIC MOME SVE Percent Beats <1% percent INFOBIONIC MOME Holter Pauses 0 count INFOBIONIC MOME AF Count 0 count INFOBIONIC MOME AF Duration 0 sec duration INFOBIONIC MOME AF [place] 0% percent INFOBIONIC MOME VT Runs 0 count INFOBIONIC MOME SVT Runs 0 count INFOBIONIC MOME Symptom Count 104 count INFOBIONIC MOME 07/05/2023 8:06 AM PLASTICS FABRICATOR OR WELDER Narrative INFOBIONIC MOME - 08/08/2023 9:56 AM PLASTICS FABRICATOR OR WELDER 1. The patient was monitored from 07/09/2023 to 08/07/2023 with a total monitoring time of 24 days 20 hours 44 minutes. The baseline rhythm was sinus with sinus arrhythmia. The heart rate varied from 41 bpm to 174 bpm. The average heart rate was 67 bpm. 2. There were less than 100 PVCs seen with a PVC burden of <1%. 3. There were 3,817 PACs seen singly with a PAC burden of <1%. 4. The patient reported one hundred four symptomatic events of dizziness, disorientation, super thirsty, chest pressure, and shortness of breath. During these events, the rhythm was sinus with sinus arrhythmia. The heart rate varied from 53 bpm to 174 bpm. At or around these times, there were single PACs noted. Retirement Sales Consultant: PANCHO Machado / PANCHO Peralta Procedure Note William Ferrari M.D., Ph.D. - 08/08/2023 1. The patient was monitored from 07/09/2023 to 08/07/2023 with a totalmonitoring time of 24 days 20 hours 44 minutes. The baseline rhythm wassinus with sinus arrhythmia. The heart rate varied from 41 bpm to 174 bpm.The average heart rate was 67 bpm. 2. There were less than 100 PVCs seen with a PVC burden of <1%. 3. There were 3,817 PACs seen singly with a PAC burden of <1%. 4. The patient reported one hundred four symptomatic events ofdizziness, disorientation, super thirsty, chest pressure, andshortness of breath. During these events, the rhythm was sinus withsinus arrhythmia. The heart rate varied from 53 bpm to 174 bpm. At or around these times, there were single PACs noted. Retirement Sales Consultant: PANCHO Machado / PANCHO Peralta Rodrigo Gray M.D., Ph.D. CV C [employer] PROCEDURES INFOBIONIC MOME NA documented in this encounter Visit Diagnoses Diagnosis Supraventricular Tachycardia, Unspecified (HCC) documented in this encounter Additional Health Concerns Assessment Noted Time PHQ-9 Depression Total Score: 11 016 4:10 PM CDT documented as of this encounter Care Teams Alteration Inspector Relationship Specialty Start Date End Date Elsewhere, Pcp PCP - General Internal Medicine 07/04/21 documented as of this encounter
--- OUTSIDE RECORDS SUMMARY | 2023-09-15 12:44 | XMS_ITS | Clinical Summary ---
Author Name Unknown Organization [facility] Address [address] [place] [address] Care Team Providers Care Shuttle Spotter Name Role Phone Elsewhere, Pcp Primary Care Provider Unavailabl e Source Comments Patient records contain information from all sites at [facility]. For routine questions regarding patient records, call [phone] during business hours, M-F 8:00 AM - 5:00 PM Central Time. Record requests for emergency care only can be directed to [phone] at any time.[facility] Allergies Active Allergy Reactions Criticality Noted Date Comments Ascorbate Calcium-Bioflavonoid Other (see comments) Medium 01/21/2019 Cold sores Ascorbic Acid Other (see comments) Medium 01/21/2019 Cold sores Bioflavonoids Other (see comments) Medium 01/21/2019 Cold sores Cephalexin Nausea And Vomiting,Other (see comments) 01/12/2021 Choline Other (see comments) Low 05/25/2021 Choline Fenofibrate Other (see comments) Medium 2018 Cold sores Inositol Other (see comments) Medium 01/21/2019 Cold sores Kiwi Anaphylaxis High 06/01/2020 Lemon Flavor Other (see comments) Low 01/12/2021 Spencer Anaphylaxis High 12/18/2013 Spencer Flavor Other (see comments) High 01/12/2021 [place] Multivitamin With Iron,Other Minerals Other (see comments) 09/05/2012 COLD SORE REACTION TO VARIOUS/NUMEROUS Niacinamide Other (see comments) Medium 01/21/2019 Cold sores Pantothenic Acid Other (see comments) Medium 9 Cold sores Pineapple Anaphylaxis High 06/01/2020 Riboflavin (Vitamin B2) Other (see comments) Medium Cold sores Thiamine (Vitamin B1) Other (see comments) Medium 01/08 Cold sores Medications Medication Sig Dispensed Refills Start Date End Date Status EPINEPHrine 0.3 mg/0.3 mL injection syringe Inject intramuscularly as needed. 0 03/08/2021 Active gabapentin (NEURONTIN) 300 mg capsule Take 300 mg by mouth 2 (two) times a day. 0 06/05/2021 Active gabapentin (NEURONTIN) 600 mg tablet Take 600 mg by mouth 2 (two) times a day. 0 06/05/2021 Active LORazepam (ATIVAN) 1 mg tablet Take 1 tablet by mouth as needed. 0 09/08/2015 Active melatonin 10 mg tablet Take 10 mg by mouth at bedtime. 0 03/01/2021 Active ondansetron (ZOFRAN) 4 mg tablet Take 4 mg by mouth as needed. 0 03/03/2021 Active sertraline (ZOLOFT) 100 mg tablet Take 100 mg by mouth daily. 0 06/26/2021 Active acetaminophen (TYLENOL) 500 mg tablet Take 1,000 mg by mouth every 6 (six) hours as needed for pain. 0 Active naproxen (NAPROSYN) 500 mg tablet Take 500 mg by mouth 2 (two) times a day with meals. 0 Active ibuprofen (ADVIL,MOTRIN) 800 mg tablet Take 800 mg by mouth every 6 (six) hours as needed for pain. 0 Active nirmatrelvir-rit onavir (PAXLOVID) 300 mg (150 mg x 2)-100 mg dose packIndications: Contact With And (Suspected) Exposure To COVID-19 Take 300 mg nirmatrelvir (two 150 mg tablets) with 100 mg ritonavir (one 100 mg tablet), with all three tablets taken together twice daily for 5 days. 30 tablet 0 02/03/2023 Active sertraline (ZOLOFT) 100 mg tablet Take 200 mg by mouth daily. 0 06/13/2022 Active metoprolol tartrate (LOPRESSOR) 50 mg tablet Take 1 tablet (50 mg total) by mouth 2 (two) times a day. 180 tablet 3 08/14/2023 Active dilTIAZem CD (CARDIZEM CD/CARTIA XT) 240 mg 24 hr capsule Take 1 capsule (240 mg total) by mouth daily. 90 capsule 3 08/14/2023 Active Active Problems Problem Noted Date Diagnosed Date Supraventricular Tachycardia, Unspecified 2020 Overview: Status post previous AVNRT ablation Depression Major 09/08/2012 Encounters Date Type Department Care Team Description 08/14/2023 Refill Department of Cardiovascular Medicine in [place], [place] [address] [place] [address] Lorin Rodriguez R.NJeremie Med Refill 08/14/2023 Refill Department of Cardiovascular Medicine in [place], [place] [address] [place] [address] Lorin Rodriguez R.NJeremie Med Refill 08/13/2023 Refill Department of Cardiovascular Medicine in [place], [place] [address] [place] [address] Lorin Rodriguez R.NJeremie Med Refill 07/03/2023 1:30 PM COURTESY CLERK - 07/03/2023 11:59 PM [facility] Hospital Encounter Division of Cardiovascular Diseases in [place], [place] [address] [place] [address] Rodrigo Gray M.D., Ph.D. Supraventricular Tachycardia, Unspecified (HCC) Discharge Disposition: Home or Self Care from Last 3 Months Family History Medical History Relation Name Comments Alcohol abuse Mother Renee Anxiety disorder Mother Renee Depression Mother Renee Thyroid disease Mother Renee Izzy Relation Name Status Comments Father Mother Renee Alive Social History Tobacco Use Types Packs/Day Years Used Date Smoking Tobacco: Every Day Cigarettes 0.5 16 Smokeless Tobacco: Current Chew Tobacco Cessation:Ready to Q uit: Not Asked; Counseling Given: Not Answered Alcohol Use Standard Drinks/Week Comments Not Currently [...] Never 07/17/2021 How often do you attend jew or buddhism serv ices? Never 07/17/2021 Do you belong to any clubs o r organizations such as jew groups, unions, fraternal or athletic groups, or [...] housing, medical care, and heating? Hard 07/17/2021 [facility]ational Stress Questionnaire Answer Date Recorded [...] or slept in a correction (including now)? No 07/17/2021 Nutrition Answer Date [...] Sex Assigned at Male 06/01/2020 11:57 AM COURTESY CLERK Gender Identity Male 06/01/2020 11:57 AM COURTESY CLERK Sexual Orientation Straight 05/25/2021 2: 46 PM COURTESY CLERK Last Filed Vital Signs Vital Sign Reading Time Taken Comments Blood Pressure 117/75 04/05/2023 6:00 AM CDT Pulse 69 04/05/2023 6:00 AM CDT Temperature 36.6 ??C (97.9 ??F) 04/05/2023 6:00 AM CD T Respiratory Rate 18 07/02/2022 11:3 7 PM COURTESY CLERK Oxygen Saturation 98% 04/05/2023 6:00 AM CDT Inhaled Oxygen Concentration - - Weight 74.7 kg (164 lb 11.2 oz) 04/05/2023 5:10 AM CDT Height 165.1 cm (5' 5) 04/05/2023 5:10 AM CDT Body Mass Index 27.41 04/05/2023 5:10 AM CDT Plan of Treatment Health Maintenance Due Date Last Done Comments Depression Monitoring (PHQ-9) 1991 Hepatitis C Screening 1991 Tobacco Cessation counseling 1991 Pneumococcal vaccine (0-64 y ears) (1 of 2 - PCV) 09/11/1997 COVID-19 Vaccine (4 - 2022-2 4 season) 2023 05/23/2021, 11/15/2020, 10/25/2020 Influenza Vaccine (#1) 2023 , 02/13/2017, 06/11/2013, Additional history exists DTaP,Tdap,and Td Vaccines (8 - Td or Tdap) 07/18/2028 07/18/2018, 06/11/2013, 02/13/2005, Additional history exists Hepatitis B Vaccines Completed 01/27/1997, 01/27/1997, 08/02/1994, Additional history exists HPV Vaccines Completed 07/03/2010, 06/11, 02/15/2010, Additional history exists Procedures Procedure Name Priority Date/Time Associated Diagnosis Comments ECG AMBULATORY REAL TIME CARDIAC MONITORING Routine 08/08/2023 12:00 AM COURTESY CLERK Supraventricular Tachycardia, Unspecified (HCC) from Last 3 Months Results * ECG AMBULATORY REAL TIME CARDIAC MONITORING (08/08/2023 12:00 AM COURTESY CLERK) Min Heart Rate 41 bpm INFOBIONIC MOME [...] Duration 0 sec duration INFOBIONIC MOME AF [place] 0% percent INFOBIONIC MOME VT Runs 0 count INFOBIONIC MOME SVT Runs 0 count INFOBIONIC MOME Symptom Count 104 count INFOBIONIC MOME 07/05/2023 8:06 AM COURTESY CLERK Narrative KAYA EDENE - 08/08/2023 9:56 AM COURTESY CLERK 1. The patient was monitored from 07/09/2023 [...] these times, there were single PACs noted. Welfare Manager: PANCHO Machado / PANCHO Peralta Procedure Note [...] these times, there were single PACs noted. Welfare Manager: PANCHO Machado / PANCHO Peralta Rodrigo Gray M.D., Ph.D. CV C ARDIAC SERVICES PROCEDURES INFOBIONIC EL NA from Last 3 Months Care Teams Shuttle Spotter Relationship Specialty Start Date End Date Elsewhere, Pcp PCP - General Internal Medicine 07/04/21
--- OUTSIDE RECORDS SUMMARY | 2023-09-15 12:44 | XMS_ITS | Clinical Summary ---
Author Name Unknown Organization [facility] Address [address] [place] [address] Care Team Providers Care Aboriginal Community Council Member Name Role Phone Found, No Pcp MD Primary Care Provider Unavailab le Source Comments You are receiving this document as you are listed as the primary care provider,follow-up provider, or the patient has been referred to you for consultation.This is in compliance with the Medicare andMedicaid EHR Incentive Program,which states Providers who transition their patient to another setting of careor provider of care or refers their patient to another provider of care shouldprovide summary care record for each transition of care or referral. [facility] Allergies Active Allergy Reactions Criticality Noted Date Comments Ascorbate Unknown 01/12/2021 Bioflavonoids [...] Refills Start Date End Date Status QUEtiapine (SEROQUEL) 100 MG tablet Take 300 mg by mouth daily at bedtime. Active gabapentin (NEURONTIN) 100 MG capsule Take 300 mg by mouth two times a day. Active metoprolol succinate (TOPROL XL) 25 MG 24 hour release tablet Take 25 mg by mouth two times a day. Active metoprolol tartrate (LOPRESSOR) 25 MG tablet Take 25 mg by mouth two times daily as needed for Other (heart palpatations). Active melatonin 5 MG tablet Take 10 mg by mouth daily at bedtime. Active MAGNESIUM GLYCINATE OR Take 100 mg by mouth daily. Active venlafaxine (EFFEXORXR) 150 MG 24 hour release capsule Take 1 Capsule by mouth daily. Future management from primary psychiatry provider. 30 Capsule 01/17/2021 Active OLANZapine (ZYPREXA) 2.5 MG tablet Take 0.5-1 Tablets by mouth every 4 hours as needed for Other (Severe anxiety, agitation or psychosis.). Future management from primary psychiatry provider. 15 Tablet 1 01/16/2021 Active Active Problems Problem Noted Date Diagnosed Date Moderate episode of recurrent major depressive d isorder 01/13/2021 DRAGAN (generalized anxiety disorder) 01/13/2021 Alcohol [...] Date Smoking Tobacco: Every Day Cigarettes 1 22.7 Started: 01/12/2001 Smokeless Tobacco: Current Snuff Tobacco Cessation:Counseling Given: Yes Alcohol Use Standard Drinks/Week Comments Never 0 (1 standard drink = 0.6 oz pur e alcohol) Sex and Gender Information Value Date Recorded Sex Assigned at Not on file Gender Identity Not on file Sexual Orientation Not on file Last Filed Vital Signs Vital Sign Reading Time Taken Comments Blood Pressure 154/106 04/11/2021 4:46 PM CDT Pulse 87 04/11/2021 4:46 PM CDT Temperature 36.7 ??C (98.1 ??F) 04/11/2021 4:46 PM CD T Respiratory Rate 20 04/11/2021 4:46 PM CDT Oxygen Saturation 97% 04/11/2021 4:46 PM CDT Inhaled Oxygen Concentration - - Weight 75.7 kg (166 lb 12.8 oz) 021 11:00 AM CDT Height 172.7 cm (5' 8) 01/12/2021 11:0 0 AM CDT Body Mass Index 25.36 01/12/2021 11:00 AM CDT Plan of Treatment Health Maintenance Due Date Last Done Comments Pneumococcal (1 - PCV) 09/11/1997 HepA (2 of 2 - 2-dose series) 06/26/2007 12/24/2006 Adult Preventive Visit 09/11/2009 HepB (1) 09/11/2010 COVID-19 Vaccine (1 - 2022-24 season) 2023 Influenza (#1) 2023 02/13/2017, 110 10/2008, 04/01/2008 DTaP/Tdap/Td (8 - Tdap) 07/18/2028 07/18/19, 06/11/2013, 02/13/2005, Additional history exists Zoster/Shingles (1 of 2) 09/11/2041 Hib Completed 08/02/1994, 08/09, 02/24/1992, Additional history exists IPV (Polio) Completed 01/27/1997, 07/12, 09/01/1993, Additional history exists MCV4 Aged Out 12/24/2006 No longer eligi ble based on patient's age to complete this topic HPV Vaccine Completed 07/03/2010, 0901/2010, 11/29/2009 HIV Screening (Preventive Services) Completed 01/15/2021 Hep C Screening (Preventive Services) Completed 01/15/2021 Procedures Procedure Name Priority Date/Time Associated Diagnosis Comments HIV 1/2 AG/AB 4TH GEN Add-On 01/15/2021 11:08 AM CDT HEPATITIS C ANTIBODY, WITH REFLEX Routine 01/15/2021 11:08 AM CDT from Last 3 Months or Most Recently Relevant to Health Maintenance Results * HIV 1/2 Ag/Ab 4th Generation (01/15/2021 11:08 AM CDT) HIV 1/2 Antigen/Antib mary beth (4th generation) Negative (Non Reactive) Negative (Non Reactive) 01/15/2021 9:06 PM CDT [facility] Comment:HIV-1 p24 Antigen an d HIV-1/HIV-2 Antibody not detected Blood Venipuncture / Unknown 01/15/2021 11:08 AM CDT 01/15/2021 11:13 AM CDT Radha Hyde MD LAB_1 Performing Organization Address City/[facility] Co de Phone Number [facility] [address] [place], [place] [address] * Hepatitis C Antibody, with Reflex (01/15/2021 11:08 AM CDT) Hepatitis C Antibody Negative (Non Reactive) Negative (Non Reactive) 01/15/2021 9:06 PM CDT [facility] Comment:Antibodies to HCV no t detected. Does not exclude the possiblity of exposure to HCV. Blood Venipuncture / Unknown 01/15/2021 11:08 AM CDT 01/15/2021 11:13 AM CDT Radha Hyde MD LAB_1 Performing Organization Address City/[facility] de Phone Number [facility] [place], [place] [id number] [place] [address] from Last 3 Months or Most Recently Relevant to Health Maintenance Advance Directives * Full Code (Latest Code Status on File) Date Activated Date Inactivated Comments 01/12/2021 10:57 AM 01/16/2021 4:39 PM Care Teams Aboriginal Community Council Member Relationship Specialty Start Date End Date Found, No Pcp, [address] [place] [address] PCP - General 04/11/21
--- OUTSIDE RECORDS SUMMARY | 2023-09-15 12:44 | XMS_ITS ---
Author Name Unknown Organization [facility] Address [address] [place] [address] Care Team Providers Care Publishing Systems Analyst Name Role Phone Unavailable Unavailable Unavailable Surgery Details Not on file Complications Check Surgery Details section. Procedure Estimated Blood Loss Check Surgery Details section. Procedure Findings Check Surgery Details section. Procedure Specimens Taken Check Surgery Details section.
--- OUTSIDE RECORDS SUMMARY | 2023-09-15 12:44 | XMS_ITS | Referral Summary ---
Author Name Unknown Organization [facility] Address [address] [place] [address] Care Team Providers Care Malt House Kiln Operator Name Role Phone Elsewhere, Pcp Primary Care Provider Unavailabl e Source Comments Patient records contain information from all sites at [facility]. For routine questions regarding patient records, call [phone] during business hours, M-F 8:00 AM - 5:00 PM Central Time. Record requests for emergency care only can be directed to [phone] at any time.[facility] Encounters Date Type Department Care Team Description 08/14/2023 Refill Department of Cardiovascular Medicine in [place], [place] [address] [place] [address] Lorin Rodriguez R.N. Med Refill 08/14/2023 Refill Department of Cardiovascular Medicine in [place], [place] [address] [place] [address] Lorin Rodriguez R.N. Med Refill 08/13/2023 Refill Department of Cardiovascular Medicine in [place], [place] [address] [place] [address] Lorin Rodriguez R.N. Med Refill 07/03/2023 1:30 PM CAUL PULLER - 07/03/2023 11:59 PM CAUL PULLER Hospital Encounter Division of Cardiovascular Diseases in [place], [place] [address] [place] [address] Rodrigo Gray M.D., Ph.D. Supraventricular Tachycardia, Unspecified (HCC) Discharge Disposition: Home or Self Care from Last 3 Months Allergies Active Allergy Reactions Criticality Noted Date [...] comments) Low 01/12/2021 [place] Anaphylaxis High 12/18/2013 [place] Flavor Other (see comments) High 01/12/2021 [place] Multivitamin With Iron,Other Minerals Other (see comments) [...] post previous AVNRT ablation Depression Major 09/08/2012 Social History Tobacco Use Types Packs/Day Years [...] Never 07/17/2021 How often do you attend adventist or anglican serv ices? Never 07/17/2021 Do you belong to any clubs o r organizations such as adventist groups, unions, fraternal or athletic groups, or [...] medical care, and heating? Hard 07/17/2021 [facility] Occupat ional Health - Occupational Stress Questionnaire Answer Date [...] or slept in a assisted (including now)? No 07/17/2021 Nutrition Answer Date [...] Sex Assigned at Male 06/01/2020 11:57 AM CAUL PULLER Gender Identity Male 06/01/2020 11:57 AM CAUL PULLER Sexual Orientation Straight 05/25/2021 2: 46 PM CAUL PULLER Last Filed Vital Signs Vital Sign Reading Time Taken Comments Blood Pressure 117/75 04/05/2023 6:00 AM CDT Pulse 69 04/05/2023 6:00 AM CDT Temperature 36.6 ??C (97.9 ??F) 04/05/2023 6:00 AM CD T Respiratory Rate 18 07/02/2022 11:3 7 PM CAUL PULLER Oxygen Saturation 98% 04/05/2023 6:00 AM CDT Inhaled Oxygen Concentration - - Weight 74.7 kg (164 lb 11.2 oz) 04/05/2023 5:10 AM CDT Height 165.1 cm (5' 5) 04/05/2023 5:10 AM CDT Body Mass Index 27.41 04/05/2023 5:10 AM CDT Plan of Treatment Not on file Procedures Procedure Name Priority Date/Time Associated Diagnosis Comments ECG AMBULATORY REAL TIME CARDIAC MONITORING Routine 08/08/2023 12:00 AM CAUL PULLER Supraventricular Tachycardia, Unspecified (HCC) from Last 3 Months Results * ECG AMBULATORY REAL TIME CARDIAC MONITORING (08/08/2023 12:00 AM CAUL PULLER) Min Heart Rate 41 bpm INFOBIONIC MOME [...] Duration 0 sec duration INFOBIONIC MOME AF [place] 0% percent INFOBIONIC MOME VT Runs 0 count INFOBIONIC MOME SVT Runs 0 count INFOBIONIC MOME Symptom Count 104 count INFOBIONIC MOME 07/05/2023 8:06 AM CAUL PULLER Narrative INFOBIONIC MOME - 08/08/2023 9:56 AM CAUL PULLER 1. The patient was monitored from 07/09/2023 [...] these times, there were single PACs noted. Rotary Shear Cutter: PANCHO Machado / PANCHO Peralta Procedure Note [...] these times, there were single PACs noted. Rotary Shear Cutter: PANCHO Machado / PANCHO Peralta Rodrigo Gray M.D., Ph.D. CV C [facility] PROCEDURES INFOBIONIC [place] from Last 3 Months Care Teams Malt House Kiln Operator Relationship Specialty Start Date End Date Elsewhere, Pcp PCP - General Internal Medicine 07/04/21
--- OUTSIDE RECORDS SUMMARY | 2023-09-15 12:44 | XMS_ITS | Encounter Summary ---
Author Name Unknown Organization [facility] Address [address] [place] [address] Care Team Providers Care Oracle Data Warehouse Developer Name Role Phone No Ref-Primary, Physician Primary Care Provider Reason for Visit * Reason Onset Date Comments Pt. Information/instruction 11/30/2018 Encounter Details Date Type Department Care Team (Late st Contact Info) Description 11/30/2018 Telephone [facility] [address] [place] [address] Lilian Barron, RN Pt. Information/instruction Social History Tobacco Use Types Packs/Day Years Used Date Smoking Tobacco: Never Assessed Sex and Gender Information Value Date Recorded Sex Assigned at Not on file Gender Identity Not on file Sexual Orientation Not on file documented as of this encounter Miscellaneous Notes * Telephone Encounter - Lilian Barron RN - 11/30/2018 5:20 PM CDT Reason for Call: Luisito calls and says that he has extreme anxiety. Pt. Says that his heart has beenfluttering today and that his right eye has been twitching. Pt. Says that he was recently started on Clonazepm. Pt. Says that he feels very scared and is sitting in an [facility] parking lot. Pt. Says that he is not alone.Denies any suicidal/homicidal thoughts. Pt. Will call 911 now. Luisito says that hewants this message left for Dr. Tomi Crystal. Pt. Says that he wants to be called on Saturday am, at: [phone]. RN then left this message in [facility], as requested. Lilian Barron RN [facility] [phone] documented in this encounter Plan of Treatment Not on file documented as of this encounter Visit Diagnoses Not on filedocumented in this encounter Care Teams Oracle Data Warehouse Developer Relationship Specialty Start Date End Date No Ref-Primary, Physician PCP - General 03/15/21 documented as of this encounter
--- OUTSIDE RECORDS SUMMARY | 2023-09-15 12:44 | XMS_ITS | Encounter Summary ---
Author Name Unknown Organization [facility] Address [address] [place] [address] Care Team Providers Care Shellfish Shucker Name Role Phone Elsewhere, Pcp Primary Care Provider Unavailabl e Reason for Visit * Reason Comments Med Refill Encounter Details Date Type Department Care Team (Late st Contact Info) Description 08/14/2023 Refill Department of Cardiovascular Medicine in [place], [place] [address] [place] [phone] Lorin Rodriguez R.N. [address] [place] [phone] Med Refill Social History Tobacco Use Types Packs/Day Years [...] Never 07/17/2021 How often do you attend cheondoism or sabianist serv ices? Never 07/17/2021 Do you belong to any clubs o r organizations such as cheondoism groups, unions, fraternal or athletic groups, or [...] housing, medical care, and heating? Hard 07/17/2021 [facility] of Occupat ional Health - Occupational Stress [...] slept in a senior care (including now)? No 07/17/2021 Nutrition Answer Date [...] Sex Assigned at Male 06/01/2020 11:57 AM ROLL WEIGHER Gender Identity Male 06/01/2020 11:57 AM ROLL WEIGHER Sexual Orientation Straight 05/25/2021 2: 46 PM ROLL WEIGHER documented as of this encounter Plan of Treatment Not on file documented as of this encounter Visit Diagnoses Not on filedocumented in this encounter Additional Health Concerns Assessment Noted Time PHQ-9 Depression Total Score: 11 016 4:10 PM CDT documented as of this encounter Care Teams Shellfish Shucker Relationship Specialty Start Date End Date Elsewhere, Pcp PCP - General Internal Medicine 07/04/21 documented as of this encounter
--- OUTSIDE RECORDS SUMMARY | 2023-09-15 12:44 | XMS_ITS | Encounter Summary ---
Author Name Unknown Organization [facility] Address [address] [place] [address] Care Team Providers Care Air Conditioning Mechanic Name Role Phone Elsewhere, Pcp Primary Care Provider Unavailabl e Reason for Visit * Reason Comments Med Refill Encounter Details Date Type Department Care Team (Late st Contact Info) Description 08/13/2023 Refill Department of Cardiovascular Medicine in [place], [place] [address] [place] [phone] Lorin Rodriguez R.N. [address] [place] [address] Med Refill Social History Tobacco Use Types [...] Never 07/17/2021 How often do you attend faith or jew serv ices? Never 07/17/2021 Do you belong to any clubs o r organizations such as faith groups, unions, fraternal or athletic groups, or [...] housing, medical care, and heating? Hard 07/17/2021 [facility] of Occupat ional Health - Occupational Stress [...] Date Recorded Dental: Regular Dentist Yes 05/20/20 Employment Answer Date Recorded Employment status Employed but not working due t o illness or injury 07/17/2021 Education Answer Date Recorded What is the highest level of school you have completed or the highest degree you have received? GED or equivalent 04/2021 Sex and Gender Information Value Date Recorded Sex Assigned at Male 06/01/2020 11:57 AM CATSHOVEL DRIVER Gender Identity Male 06/01/2020 11:57 AM CATSHOVEL DRIVER Sexual Orientation Straight 05/25/2021 2: 46 PM CATSHOVEL DRIVER documented as of this encounter Miscellaneous Notes * Telephone Encounter - Lorin Rodriguez R.N. - 08/14/2023 7:35 AM CATSHOVEL DRIVER Addressed in a different encounter HOVEL DRIVER documented in this encounter Plan of Treatment Not on file documented as of this encounter Visit Diagnoses Not on filedocumented in this encounter Additional Health Concerns Assessment Noted Time PHQ-9 Depression Total Score: 11 09/08/ 016 4:10 PM CDT documented as of this encounter Care Teams Air Conditioning Mechanic Relationship Specialty Start Date End Date Elsewhere, Pcp PCP - General Internal Medicine 07/04/21 documented as of this encounter
--- OUTSIDE RECORDS SUMMARY | 2023-09-15 12:44 | XMS_ITS | Encounter Summary ---
Author Name Unknown Organization [facility] Address [address] [place] [address] Care Team Providers Care Electrophysiologist Name Role Phone No Ref-Primary, Physician Primary Care Provider Encounter Details Date Type Department Care Team (Late st Contact Info) Description 03/19/2021 Documentation Only INTERFACED REPORT Unknown, Provider Social History Tobacco Use Types Packs/Day Years Used Date Smoking Tobacco: Never Assessed Sex and Gender Information Value Date Recorded Sex Assigned at Not on file Gender Identity Not on file Sexual Orientation Not on file COVID-19 Exposure Response Date Recorded In the last month, have you been in contact with someone who was confirmed or suspected to have Coronavirus / COVID-19? No / Unsure 03/19/2021 3:28 PM CDT documented as of this encounter Plan of Treatment Not on file documented as of this encounter Visit Diagnoses Not on filedocumented in this encounter Care Teams Electrophysiologist Relationship Specialty Start Date End Date No Ref-Primary, Physician PCP - General 03/15/21 documented as of this encounter
--- OUTSIDE RECORDS SUMMARY | 2023-09-15 12:44 | XMS_ITS | Encounter Summary ---
Author Name Unknown Organization [facility] Address [address] [place] [address] Care Team Providers Care Industrial Automation Specialist Name Role Phone Elsewhere, Pcp Primary Care Provider Unavailabl e Reason for Visit * Reason Comments Med Refill Encounter Details Date Type Department Care Team (Late st Contact Info) Description 08/14/2023 Refill Department of Cardiovascular Medicine in [place], [place] [address] [place] [phone] Lorin Rodriguez R.N. [address] [place] [phone] Med Refill Social History Tobacco Use Types [...] Never 07/17/2021 How often do you attend hindu or yarsani serv ices? Never 07/17/2021 Do you belong to any clubs o r organizations such as hindu groups, unions, fraternal or athletic groups, or [...] housing, medical care, and heating? Hard 07/17/2021 [facility] of Occupat ional Health - Occupational [...] slept in a nursing home (including now)? No 07/17/2021 Nutrition Answer Date [...] Sex Assigned at Male 06/01/2020 11:57 AM OXYGRAPH OPERATOR Gender Identity Male 06/01/2020 11:57 AM OXYGRAPH OPERATOR Sexual Orientation Straight 05/25/2021 2: 46 PM OXYGRAPH OPERATOR documented as of this encounter Plan of Treatment Not on file documented as of this encounter Visit Diagnoses Not on filedocumented in this encounter Additional Health Concerns Assessment Noted Time PHQ-9 Depression Total Score: 11 016 4:10 PM CDT documented as of this encounter Care Teams Industrial Automation Specialist Relationship Specialty Start Date End Date Elsewhere, Pcp PCP - General Internal Medicine 07/04/21 documented as of this encounter
[2023-09-15 12:55] LABS: PCR FLU A Negative PCR FLU A (Negative); PCR FLU B Negative PCR FLU B (Negative); PCR RSV Negative PCR RSV (Negative); SARS PCR* Negative SARS-CoV-2 (Negative)
[2023-09-15 13:31] LABS: Strep A DNA Probe* DETECTED (Not Detectd)
== END 2023-09-15 13:16 | disposition home or self-care (01) ==
PROVIDERS: Emergency Provider Family Medicine; PCP Physician Assistant
DX: J02.0 Streptococcal pharyngitis (principal)
CPT/HCPCS: 87631; 87651; 99283; 99284; A9270